=== PATIENT | female | born 1945 | race Caucasian/White ===

== ENCOUNTER 2020-04-29 10:29 | Outpatient (REF) | payer MEDICARE, MEDICAID, OTHER, SELFPAY ==
--- NOTE | ~2020-04-29 | MM_ITS ---
EXAMINATION: MM SCREENING DIGITAL BREAST TOMOSYNTHESIS, BILATERAL CLINICAL INFORMATION: Screening. Asymptomatic. The lifetime risk of breast cancer based on the Tyrer-Cuzick Model is 10.6%. COMPARISON: Mammography: April 05, 2019 and studies dating back to June 07, 2006 TECHNIQUE: Digital breast tomosynthesis is performed in both the craniocaudal and mediolateral oblique views along with computer-aided detection (CAD). Synthesized 2D images are generated from the tomosynthesis. FINDINGS: The breasts are almost entirely fatty (ACR BI-RADS breast composition Category a). There are no significant masses, abnormal calcifications, or other abnormalities. MM/MM tomosynthesis screening BI IMPRESSION: There are no significant changes from prior study. ASSESSMENT: BI-RADS 1: Negative RECOMMENDATION: Routine annual mammography screening. This patient's information was entered into a reminder system with a target due date for their next mammogram.
== END 2020-04-29 10:30 | disposition home or self-care (01) ==
LOC: HO.MAMMO 10:29
PROVIDERS: PCP Nurse Practitioner Family; Visit Provider Nurse Practitioner Family
DX: Z12.31 Encounter for screening mammogram for malignant neoplasm of breast (principal)
CPT/HCPCS: 77063; 77067

== ENCOUNTER 2020-07-14 08:25 | Outpatient (REF) | payer MEDICARE, MEDICAID, SELFPAY ==
[2020-07-14 11:27] LABS: MANUAL DIFF FLAG NO
[2020-07-14 11:34] LABS: Basophils Percent Auto 0.5 % (0-2); Eosinophils Absolute Auto 0.2 X10*3/uL (0.0-0.4); Eosinophils Percent Auto 2.4 % (0-4); Hemoglobin 13.5 g/dl (12.0-16.0); Imm Gran Abs Auto 0.04 X10*3/uL (0.00-0.03); Imm Gran Pct Auto 0.5 % (0.0-0.4); Mean Corpuscular HGB Conc 31.4 g/dl (31.0-35.0); Mean Corpuscular Hemoglobin 29.7 pg (27.0-33.0); Mean Corpuscular Volume 94.5 fL (80-98); Monocytes Absolute Auto 0.6 X10*3/uL (0.1-1.2); Monocytes Percent Auto 7.1 % (2-11); Neutrophils Absolute Auto 6.7 X10*3/uL (2.0-8.3); Neutrophils Percent Auto 77.5 % (45-73); Platelet Count 206 X10*3/uL (160-400); Red Blood Count 4.55 X10*6/uL (4.20-5.50); Red Cell Distribution Width 12.4 % (11.0-16.0); White Blood Count 8.6 X10*3/uL (4.8-10.8)
[2020-07-14 11:45] LABS: Anion Gap 15 (12-20); Blood Urea Nitrogen 17 mg/dL (9-16); Calcium 9.5 mg/dL (8.4-10.2); Carbon Dioxide 26 mmol/L (22-29); Chloride 101 mmol/L (96-108); Estimated Glomerular Filt Rate 41; Iron 57 mcg/dL (30-160); Percent Iron Saturation 17 % (15-50); Phosphorus 3.8 mg/dL (2.7-4.5); Potassium 4.1 mmol/L (3.3-5.1); Sodium 138 mmol/L (135-145); Total Iron Binding Capacity 330 mcg/dL (228-428); Unsaturated Iron Binding 273 ug/dL
[2020-07-14 12:11] LABS: Ferritin 214 ng/mL (10-250)
[2020-07-16 10:07] LABS: Calcium (PTHI) 9.8 mg/dL (8.6-10.4); PTHI 68 pg/mL (14-64)
== END 2020-07-14 08:26 | disposition home or self-care (01) ==
LOC: HO.HMGCLDS 08:25
PROVIDERS: PCP Nurse Practitioner Family; Visit Provider Internal Medicine Nephrology
DX: Q61.8 Other cystic kidney diseases (principal)
CPT/HCPCS: 36415; 80051; 82306; 82310; 82565; 82728; 83540; 83970; 84100; 84520; 85025

== ENCOUNTER 2020-07-17 | Outpatient (REF) | payer MEDICARE, MEDICAID, OTHER, SELFPAY ==
[2020-07-17 11:41] LABS: Glucose Urine UA NEG (NEG); Leukocyte Esterase Urine 1+ (NEG); Nitrite Urine NEG (NEG); PH 5.5 (5.0-8.0); Specific Gravity - Urine <= 1.005 (1.005-1.025); Urine Blood NEG (NEG); Urine Ketones NEG (NEG); Urine Protein NEG (NEG-TRACE)
[2020-07-17 11:46] LABS: Appearance Urine CLEAR; Color Urine STRAW
[2020-07-17 12:15] LABS: RBC Urine 0 /HPF (0); Squamous Epithelial Cell Urine TRACE /LPF
[2020-07-17 12:23] LABS: Creatinine Urine 43.66 mg/dL; Total Protein Urine Random < 7 mg/dL (<12)
== END 2020-07-17 00:01 | disposition home or self-care (01) ==
LOC: HO.HMGCLNP
PROVIDERS: Visit Provider Internal Medicine Nephrology
DX: Q61.8 Other cystic kidney diseases (principal)
CPT/HCPCS: 81001; 84156

== ENCOUNTER 2020-10-01 08:36 | Outpatient (REF) | payer MEDICARE, MEDICAID, SELFPAY ==
[2020-10-01 11:48] LABS: Alanine Aminotransferase 14 U/L (0-31); Albumin Level 4.5 g/dL (3.5-5.0); Alkaline Phosphatase 85 U/L (39-117); Anion Gap 14 (12-20); Aspartate Amino Transferase 14 U/L (5-31); Bilirubin Total 0.7 mg/dL (0.0-1.0); Blood Urea Nitrogen 18 mg/dL (9-16); Calcium 9.7 mg/dL (8.4-10.2); Carbon Dioxide 23 mmol/L (22-29); Chloride 107 mmol/L (96-108); Cholesterol 163 mg/dL; Estimated Glomerular Filt Rate 39; Glucose Fasting 107 mg/dL (60-99); HDL Cholesterol 42 mg/dL; LDL Cholesterol Calculated 97 mg/dl; Potassium 4.3 mmol/L (3.3-5.1); Sodium 140 mmol/L (135-145); Total Protein 6.6 g/dL (6.5-8.0); Triglycerides 121 mg/dL
[2020-10-01 12:12] LABS: TSH reflex Free T4 0.63 uIU/mL (0.32-4.0)
== END 2020-10-01 08:37 | disposition home or self-care (01) ==
LOC: HO.HMGCLDS 08:36
PROVIDERS: PCP Nurse Practitioner Family; Visit Provider Nurse Practitioner Family
DX: I10 Essential (primary) hypertension (principal)
CPT/HCPCS: 36415; 80053; 80061; 84443

== ENCOUNTER 2020-10-04 | Outpatient (REF) | payer MEDICARE, MEDICAID, SELFPAY ==
[2020-10-05 11:45] LABS: Glucose Urine UA NEG (NEG); Leukocyte Esterase Urine 1+ (NEG); Nitrite Urine NEG (NEG); Specific Gravity - Urine <= 1.005 (1.005-1.025); UACC Culture Trigger YES; Urine Blood TRACE (NEG); Urine Ketones NEG (NEG); Urine Protein NEG (NEG-TRACE)
[2020-10-05 11:50] LABS: Appearance Urine CLEAR; Color Urine YELLOW
[2020-10-05 12:07] LABS: Bacteria Urine 1+ /LPF; Squamous Epithelial Cell Urine 1+ /LPF
== END 2020-10-04 00:01 | disposition home or self-care (01) ==
LOC: HO.LNP
PROVIDERS: Visit Provider Nurse Practitioner Family
DX: R31.29 Other microscopic hematuria (principal)
CPT/HCPCS: 81001; 87086

== ENCOUNTER 2020-10-05 | Outpatient (REF) | payer MEDICARE, MEDICAID, SELFPAY | END 2020-10-05 00:01 | disposition home or self-care (01) | LOC: HO.HMGCLNP | PROVIDERS: Visit Provider Nurse Practitioner Family | DX: Z13.89 Encounter for screening for other disorder (principal) ==

== ENCOUNTER 2020-10-22 | Outpatient (REF) | payer MEDICARE, MEDICAID, SELFPAY ==
[2020-10-22 13:44] LABS: Urine Cytology See Pathology rpt
[2020-10-22 14:02] LABS: Glucose Urine UA NEG (NEG); Leukocyte Esterase Urine 1+ (NEG); Nitrite Urine NEG (NEG); Specific Gravity - Urine <= 1.005 (1.005-1.025); Urine Blood NEG (NEG); Urine Ketones NEG (NEG); Urine Protein NEG (NEG-TRACE)
[2020-10-22 14:04] LABS: Appearance Urine CLEAR; Color Urine YELLOW
[2020-10-22 15:15] LABS: RBC Urine 0-2 /HPF (0)
[2020-10-22 15:16] LABS: Squamous Epithelial Cell Urine 1+ /LPF
== END 2020-10-22 00:01 | disposition home or self-care (01) ==
LOC: HO.HMGCLNP
PROVIDERS: Visit Provider Nurse Practitioner Family
DX: R31.29 Other microscopic hematuria (principal)
CPT/HCPCS: 81001; 87086; 88112

== ENCOUNTER 2020-11-05 10:22 | Outpatient (REF) | payer MEDICARE, MEDICAID, SELFPAY ==
--- NOTE | ~2020-11-05 | MM_ITS ---
EXAMINATION: BONE DENSITOMETRY CLINICAL INDICATION: Encounter for screening for osteoporosis. COMPARISON: Baseline BD dated 01/29/2016. TECHNIQUE: Using a [employer] DXA System (software version: 13.1) manufactured by [employer], dual-energy x-ray absorptiometry was performed of the lumbar spine and left hip. The images are of good technical quality. Summary results are attached. FINDINGS: AP SPINE L1-L4: Current: BMD 1.215 g/cm2, Z-score 1.5, T-score 0.3, normal, 4.8% increase from baseline (<5% change is not significant). Baseline: BMD 1.159 g/cm2. LEFT FEMUR, NECK: Current: BMD 0.812 g/cm2, Z-score -0.1, T-score -1.6, osteopenia. Baseline: BMD 0.795 g/cm2. LEFT FEMUR, TOTAL: Current: BMD 0.841 g/cm2, Z-score 0.0, T-score -1.3, osteopenia, 1.6% increase from baseline (<5% change is not significant). Baseline: BMD 0.828 g/cm2. IDENTIFIED RISK FACTORS: Low calcium intake, renal, menopause. HISTORY OF FRACTURE: None listed. MEDICATIONS: Calcium or multivitamin. MM/XR DEXA axial skeleton IMPRESSION: 1. DIAGNOSIS: Osteopenia based on the lowest T-score value of -1.6 in the femoral neck applying World Health Organization criteria. 2. 10-YEAR FRACTURE RISK PREDICTION, FRAX: Major osteoporotic fracture (clinical spine, forearm, hip or shoulder) 10.8%. Hip fracture 2.2%. 3. Treatment Recommendations: NOF guidelines recommend consideration for treatment in postmenopausal women and men age 50 and older presenting with the following: -A hip or vertebral (clinical or morphometric) fracture. -T-score less than or equal to -2.5 at the femoral neck or spine after appropriate evaluation to exclude secondary causes. -Low bone mass at the hip or spine and a 10-year fracture probability by FRAX of greater than or equal to 3% for hip fracture or greater than or equal to 20% for major osteoporotic fracture based on the [place] adapted WHO algorithm. 4. Other Recommendations: All treatment decisions require clinical judgment and consideration of individual patient factors, including patient preferences, comorbidities, previous drug use, risk factors not captured in the FRAX model (e.g. frailty, falls, vitamin D deficiency, increased bone turnover, interval significant decline in bone density) and possible under or overestimation of fracture risk by FRAX. Additional medical evaluation for secondary cause of low bone mineral density may be appropriate. FUTURE SCAN RECOMMENDATION: People with diagnosed cases of osteoporosis or at high risk for fracture should have regular bone mineral density tests. For patients eligible for Medicare, routine testing is allowed once every 2 years. The testing frequency can be increased to one year for patients who have rapidly progressing disease, those who are receiving or discontinuing medical therapy to restore bone mass, or have additional risk factors.
== END 2020-11-05 10:23 | disposition home or self-care (01) ==
LOC: HO.MAMMO 10:22
PROVIDERS: PCP Nurse Practitioner Family; Visit Provider Nurse Practitioner Family
DX: Z13.820 Encounter for screening for osteoporosis (principal); M85.80 Other specified disorders of bone density and structure, unspecified site; Z78.0 Asymptomatic menopausal state; Z79.899 Other long term (current) drug therapy
CPT/HCPCS: 77080

== ENCOUNTER 2021-03-31 09:01 | Inpatient (IN) | payer MEDICARE, MEDICAID, SELFPAY ==
[2021-03-31] VITALS (27 sets, daily range): BP systolic 66–142; BP diastolic 36–89; PULSE 109–171; RESP 19–40; TEMP 37.2–40.1; O2SAT 92–99; BMI 34.0
--- NOTE | 2021-03-31 | ECG_ITS ---
Test Reason : CP Blood Pressure : / mmHG Vent. Rate : 168 BPM Atrial Rate : 000 BPM P-R Int : 000 ms QRS Dur : 076 ms QT Int : 264 ms P-R-T Axes : 000 058 -11 degrees QTc Int : 441 ms Atrial fibrillation with rapid ventricular response Nonspecific ST abnormality Abnormal QRS-T angle, consider primary T wave abnormality Abnormal ECG When compared with ECG of 15-DEC-2018 13:09, Atrial fibrillation has replaced Sinus rhythm Vent. rate has increased BY 94 BPM Nonspecific T wave abnormality now evident in Inferior leads Referred By: Rochelle Kaplan Electronically Signed By:Juan Carlos Hawkins
--- NOTE | ~2021-03-31 | XR_ITS ---
EXAMINATION: XR CHEST CLINICAL INFORMATION: Fever COMPARISON: CT chest 09/30/2019 TECHNIQUE: Frontal view of the chest was obtained. FINDINGS: The lungs are well-expanded and clear of acute process. There are postsurgical changes right midlung from previous intervention. The heart size and pulmonary vascularity is normal. There is mild dextroscoliosis dorsal spine. No lytic process. XR/XR chest 1V IMPRESSION: Mild dextroscoliosis. No acute cardiopulmonary process seen. Postsurgical changes right midlung.
--- NOTE | ~2021-03-31 | CT_ITS ---
EXAMINATION: CT ABDOMEN AND PELVIS WITHOUT CONTRAST CLINICAL INFORMATION: Rule out renal obstruction COMPARISON: None TECHNIQUE: Multidetector volumetric imaging was performed from the superior aspect of the liver through the pubic symphysis. Sagittal and coronal reformatted images were obtained on the technologist's workstation. This CT examination was performed using dose optimization techniques as appropriate, variously including the following: *Automated exposure control *Adjustment of mA and/or kV according to patient size (this includes techniques or standardized protocols for targeted exams where dose is matched to indication/reason for exam; i.e. extremities or head) *Use of iterative reconstruction technique DLP: 645 mGy-cm FINDINGS: Visualized lung bases demonstrate mild dependent pleural thickening and minimal atelectasis. Prominent mitral annulus calcifications are partially visualized. The liver is normal in size but demonstrates diffusely decreased attenuation. The gallbladder is normal in appearance. The pancreas and spleen are unremarkable. A small anterior splenule is suspected. There is mild diffuse hypertrophy of both adrenal glands. The kidneys are normal in size. No renal calculi or hydronephrosis identified within either kidney. There is mild to moderate perinephric stranding bilaterally. There is a 5.7 cm right renal cyst. Normal caliber loops of small and large bowel. There is mild to moderate colonic diverticulosis. There appears to be diffuse fatty mucosal infiltration involving the ascending and transverse colon. Normal appendix. Normal caliber abdominal aorta which demonstrates moderate atherosclerotic disease. No gross retroperitoneal lymphadenopathy. The bladder is relatively decompressed but grossly unremarkable. Unremarkable CT appearance of the uterus. Within the right pelvis there is a heterogeneous, predominantly fatty structure which measures approximately 4.3 cm, nonspecific. There is no gross free pelvic fluid present. A small fat-containing left inguinal hernia is noted. There is no inguinal lymphadenopathy. Mild to moderate diffuse degenerative changes of the spine. CT/CT abdomen pelvis wo con IMPRESSION: 1. No renal calculi or hydronephrosis of either kidney. 2. 5.7 cm right renal cyst. 3. Diffusely decreased liver attenuation suggesting hepatic steatosis. Correlation with liver enzymes recommended. 4. Mild to moderate colonic diverticulosis without CT evidence to suggest active diverticulitis. 5. There appears to be diffuse fatty mucosal infiltration involving the ascending and transverse colon which is nonspecific in nature. Clinical correlation recommended. 6. Within the right pelvis there is a heterogeneous, predominantly fatty structure which measures approximately 4.3 cm. This structure is nonspecific but suspected to be adnexal in origin and therefore likely a dermoid. Further evaluation can be obtained with ultrasound imaging of the pelvis, both transabdominal and transvaginal. Fleischner guidelines were followed.
--- NOTE | 2021-03-31 09:58 | ED_ITS ---
HPI - General Adult General Chief complaint: General Medical Stated complaint: UNABLE TO WALK SHAKING QUEST UTI Time Seen by Provider: 03/31/21 09:33 Source: patient and family Mode of arrival: ambulatory Limitations: no limitations History of Present Illness HPI narrative: Patient is brought to the emergency room by her daughter. Patient has had increased confusion, according to the daughter the patient has been trying to sit were there is no chair, when patient is asked a question she do send labs for no reason. Patient has had multiple urinary tract infections in the past, and this is usually how she reacts. Patient states she has no pain at this time. Patient told her daughter that earlier today she had right-sided flank pain. Patient denies abdominal pain. Patient denies dysuria or hematuria. Denies URI symptoms Related Data Home Medications Medication Instructions Recorded Confirmed albuterol sulfate 90 mcg/actuation 2 puff INHALATION Q6H PRN 09/23/20 03/31/21 aerosol inhaler (Ventolin HFA) cholecalciferol (vitamin D3) 50 50 mcg PO DAILY 09/23/20 03/31/21 mcg (2,000 unit) capsule lamotrigine 25 mg tablet 50 mg PO BEDTIME tab 09/23/20 03/31/21 melatonin 10 mg tablet 10 mg PO BEDTIME 03/31/21 03/31/21 olanzapine 7.5 mg tablet 1 tab PO BEDTIME 03/31/21 03/31/21 tiotropium 2.5 mcg-olodaterol 2.5 2 puff INHALATION DAILY 03/31/21 03/31/21 mcg/actuation mist for inhalation (Stiolto Respimat) Previous Rx's Medication Instructions Recorded simvastatin 20 mg tablet 20 mg PO BEDTIME #90 tab 02/08/21 Allergies Allergy/AdvReac Type Severity Reaction Status Date / Time Sulfa (Sulfonamide Allergy Unknown RASH, Unverified 09/23/20 15:32 Antibiotics) Anaphylaxis [SULFA (SULFONAMIDE ANTIBIOTICS)] Review of Systems Review of Systems: Constitutional : No Weight loss, complaining of fever, states she feels very hot. Having Chills and worsening tremors, No Night Sweats, No Fatigue, No Malaise ENT/Mouth : No Hearing loss, No Ear Pain, No Nasal Congestion, No Sinus Pain, No Hoarseness, No sore throat, No Rhinorrhea, No Swallowing Difficulty Eyes: No Eye Pain, No Swelling, No Redness, No Foreign Body, No Discharge, No Vi tomy Changes Cardiovascular : No Chest Pain, No SOB, No Dyspnea on Exertion, No Orthopnea, No Edema, No Palpitations Respiratory : No Cough, No Sputum, No Wheezing, No Smoke Exposure, No Dyspnea Gastrointestinal : No Nausea, No Vomiting, No Diarrhea, No Constipation, No abdominal Pain, No Hematochezia, No Melena Genitourinary : no irregular bleeding, No Dysuria, No Urinary Frequency, No Hematuria, No Urinary Incontinence, No Urgency, No Flank Pain, No Urinary Flow Changes, No Hesitancy Musculoskeletal : No joint pain, No Myalgias, No Joint Swelling Skin : No Skin Lesions, No rash Neuro : No Weakness, No Numbness, No Paresthesias, No Loss of Consciousness, No Dizziness, No Headache Psych : No Anxiety/Panic, No Depression, No SI/HI/AH/VH, No Social Issues, Heme/Lymph: No Bruising, No Bleeding,No Lymphadenopathy Endocrine : No Polyuria, No Polydipsia, No Temperature Intolerance [facility] Past Medical History Medical History Bipolar 1 disorder COPD (chronic obstructive pulmonary disease) Dyslipidemia HTN (hypertension) Kidney disease Leukocytosis [place] nephropathy Necrotizing granulomatous inflammation of lung Vitamin D deficiency Family History Family History (Updated 09/23/20 @ 15:19 by Jud Mendoza) Child No Financial Resp No problems noted. Family/Other Substance use disorder Social History Social History Housing: House Patient Tobacco Use Status: Former Tobacco user Years Smoked: 4-5 years ago Second Hand Smoke Exposure: No Advance Directives: Yes Advance Directives Information Provided: Yes Advance Directives on File: No Current occupational status: retired Current occupational exposures/hazards: No Physical Exam Vital Signs: Vital Signs: Last Vital Signs Temp 99.0 F 03/31/21 15:42 Pulse 138 H 03/31/21 15:42 Resp 22 H 03/31/21 15:42 BP 104/61 03/31/21 15:42 Pulse Ox 97 03/31/21 15:42 BMI result Body Mass Index 34.0 Const: Other: Appearance: Alert. No acute distress. Alert and oriented x3 Eyes: Pupils equal, round and reactive to light. ENT: Pharynx normal. Neck: Normal inspection. Neck supple. No lymph nodes noted. No crepitus CVS: Normal heart rate and rhythm. Pulses normal. Normal S1 and S2 Respiratory: No respiratory distress. Breath sounds normal. No Wheezing. No rales Abdomen: Soft and nontender. No rigidity. No distention. Skin: Skin warm to touch Extremities: No lower extremity edema. Neuro: Cranial nerves 2-12 was grossly intact, No motor deficit. No sensory deficit. Moving all extermities. No slurred speech. Course Course Course Narrative: 10:00 Patient has history of UTIs. At this time, all of the labs are pending. Patient will be empirically treated with ceftriaxone. Fluids will be given on ideal body weight of 46 kg 10:35 patient remains asymptomatic, however patient's heart rate went up to 180 to 190. Adenosine 6 mg and 12 mg were given. However, the patient's heart rate went up to 160mg. As the heart rate decreased, it was determined that the rhythm is atrial fibrillation. After 2 doses adenosine. Patient's blood pressure dropped to 80 systolic. Initially, Cardizem was ordered but it was not given. Medication was switched to IV digoxin 250 mcg I discussed the patient with a chromic suture. At this time, the arrhythmia is likely secondary to sepsis. Recommendations are to treat the infection. If blood pressure continues to be low, patient will need phenylephrine,. At this time, patient would not tolerate beta blockers or calcium channel blockers. If needed we can do amiodarone. 12:50 the urinalysis is back, it is not impressive, unlikely to be causing a fever of 103. Chest x-ray within normal limits. COVID test is negative. I discussed with the daughter that we will go ahead and scan the chest and the abdomen looking for a source of infection. Patient will receive a 0.5 mg IV push of phenylephrine, dose confirmed with pharmacy. If needed, patient may need a central line with phenylephrine. 13:00 patient received 1 push of phenylephrine 0.5, patient's blood pressure improved, discussed the blood pressure improvement with Dr. Hawkins, patient will be started on an amiodarone drip 16:22 patient remains stable, heart rate 120-130, blood pressure 118/59 I discussed the patient with Dr. Latham, patient being admitted [place] [facility] [place] Medical Decision Making Lab Data Result diagrams: 03/31/21 10:07 03/31/21 10:07 Labs: Lab Results 03/31/21 03/31/21 03/31/21 Range/Units 10:07 10:07 10:07 WBC 15.4 H (4.8-10.8) X10*3/uL RBC 4.29 (4.20-5.50) X10*6/uL Hgb 12.6 (12.0-16.0) g/dl Hct 39.1 (37.0-47.0) % MCV 91.1 (80.0-98.0) fL MCH 29.4 (27.0-33.0) pg MCHC 32.2 (31.0-35.0) g/dl RDW 12.3 (11.0-16.0) % Plt Count 109 L (160-400) X10*3/uL MPV 11.4 (9.4-12.3) fL Immature Gran % (Auto) 1.1 H (0.0-0.4) % Neut % (Auto) 90.2 H (45-73) % Lymph % (Auto) 1.6 L (20-40) % [place] % (Auto) 7.0 (2-11) % Eos % (Auto) 0.0 (0-4) % Baso % (Auto) 0.1 (0-2) % Lymph # (Auto) 0.2 L (1.2-4.9) X10*3/uL [place] # (Auto) 1.1 (0.1-1.2) X10*3/uL Eos # (Auto) 0.0 (0.0-0.4) X10*3/uL Baso # (Auto) 0.0 (0.0-0.2) X10*3/uL Abs Immat Gran (auto) 0.17 H (0.00-0.03) X10*3/uL Absolute Neuts (auto) 13.9 H (2.0-8.3) x10*3/uL Absolute Nucleated RBC 0.000 (0.0-0.012) X10*3/uL Nucleated RBC % (auto) 0.0 (0.0-0.2) /100WBC Smear Tech's Comments VERIFIED PT (9.9-13.0) SEC INR (0.9-1.1) Sodium 140 (135-145) mmol/L Potassium 4.5 (3.3-5.1) mmol/L Chloride 105 (96-108) mmol/L Carbon Dioxide 24 (22-29) mmol/L Anion Gap 16 (12-20) BUN 37 H (9-16) mg/dL Creatinine 2.89 H (0.5-1.4) mg/dL Estim Creat Clear Calc 16.2 Estimated GFR 16 Random Glucose 172 H (60-115) mg/dL Lactic Acid (0.5-2.0) mmol/L Calcium 9.1 D (8.4-10.2) mg/dL Total Bilirubin 1.1 H (0.0-1.0) mg/dL Direct Bilirubin 0.5 (0.0-0.5) mg/dL AST 17 (5-31) U/L ALT 12 (0-31) U/L Alkaline Phosphatase 65 D (39-117) U/L Total Protein 6.0 L (6.5-8.0) g/dL Albumin 3.9 (3.5-5.0) g/dL Urine Color Urine Appearance Urine pH (5.0-8.0) Ur Specific [place] (1.005-1.025) Urine Protein (NEG-TRACE) MG/DL Urine Glucose (UA) (NEG) MG/DL Urine Ketones (NEG) MG/DL Urine Blood (NEG) Urine Nitrite (NEG) Ur Leukocyte Esterase (NEG) Urine RBC (0) /HPF Urine WBC (0-4) /HPF Ur Squamous Epith Cells /LPF Ur Renal Epithelial Cell /LPF Urine Bacteria /LPF Urine Mucus /LPF COVID-19 (KARTHIK) Negative (Negative) COVID-19 Clin Com See Note 03/31/21 03/31/21 03/31/21 Range/Units 10:07 10:07 12:14 WBC (4.8-10.8) X10*3/uL RBC (4.20-5.50) X10*6/uL Hgb (12.0-16.0) g/dl Hct (37.0-47.0) % MCV (80.0-98.0) fL MCH (27.0-33.0) pg MCHC (31.0-35.0) g/dl RDW (11.0-16.0) % Plt Count (160-400) X10*3/uL MPV (9.4-12.3) fL Immature Gran % (Auto) (0.0-0.4) % Neut % (Auto) (45-73) % Lymph % (Auto) (20-40) % [place] % (Auto) (2-11) % Eos % (Auto) (0-4) % Baso % (Auto) (0-2) % Lymph # (Auto) (1.2-4.9) X10*3/uL [place] # (Auto) (0.1-1.2) X10*3/uL Eos # (Auto) (0.0-0.4) X10*3/uL Baso # (Auto) (0.0-0.2) X10*3/uL Abs Immat Gran (auto) (0.00-0.03) X10*3/uL Absolute Neuts (auto) (2.0-8.3) x10*3/uL Absolute Nucleated RBC (0.0-0.012) X10*3/uL Nucleated RBC % (auto) (0.0-0.2) /100WBC Smear Tech's Comments PT 15.8 H (9.9-13.0) SEC INR 1.4 H (0.9-1.1) Sodium (135-145) mmol/L Potassium (3.3-5.1) mmol/L Chloride (96-108) mmol/L Carbon Dioxide (22-29) mmol/L Anion Gap (12-20) BUN (9-16) mg/dL Creatinine (0.5-1.4) mg/dL Estim Creat Clear Calc Estimated GFR Random Glucose (60-115) mg/dL Lactic Acid 1.4 (0.5-2.0) mmol/L Calcium (8.4-10.2) mg/dL Total Bilirubin (0.0-1.0) mg/dL Direct Bilirubin (0.0-0.5) mg/dL AST (5-31) U/L ALT (0-31) U/L Alkaline Phosphatase (39-117) U/L Total Protein (6.5-8.0) g/dL Albumin (3.5-5.0) g/dL Urine Color YELLOW Urine Appearance CLOUDY Urine pH 6.5 (5.0-8.0) Ur Specific [place] 1.020 (1.005-1.025) Urine Protein 3+ H (NEG-TRACE) MG/DL Urine Glucose (UA) NEG (NEG) MG/DL Urine Ketones NEG (NEG) MG/DL Urine Blood 3+ H (NEG) Urine Nitrite POS H (NEG) Ur Leukocyte Esterase 2+ H (NEG) Urine RBC 76-150 H (0) /HPF Urine WBC 76-150 H (0-4) /HPF Ur Squamous Epith Cells TRACE /LPF Ur Renal Epithelial Cell TRACE /LPF Urine Bacteria TRACE /LPF Urine Mucus 1+ /LPF COVID-19 (KARTHIK) (Negative) COVID-19 Clin Com Critical Care Time Critical Care Time Critical Care Time: Yes Total Critical Care Time: 90 Attestation: 90 minutes were spent with the patient care, consultations and stabilization Discharge Plan Discharge Clinical Impression: Acute UTI, Atrial fibrillation with RVR, [id number] kidney injury, Acute hypotension Patient Disposition: Admitted As Inpatient
[2021-03-31] MEDS: 0.9 % Sodium Chloride 1,000 ML 999 ML IVCONT (10:08)
[2021-03-31] MEDS: Acetaminophen 325 MG TABLET 650 MG PO ×3 (10:15→18:13)
[2021-03-31 10:24] LABS: INTERNATIONAL NORM RATIO 1.4 (0.9-1.1); Prothrombin Time 15.8 SEC (9.9-13.0)
[2021-03-31] MEDS: cefTRIAXone sodium 1 GM in 0.9 % Sodium Chloride 50 ML IV (10:26)
[2021-03-31 10:28] LABS: Basophils Percent Auto 0.1 % (0-2); Hematocrit 39.1 % (37.0-47.0); Hemoglobin 12.6 g/dl (12.0-16.0); Imm Gran Abs Auto 0.17 X10*3/uL (0.00-0.03); Imm Gran Pct Auto 1.1 % (0.0-0.4); Lymphocytes Absolute Auto 0.2 X10*3/uL (1.2-4.9); Lymphocytes Percent Auto 1.6 % (20-40); MANUAL DIFF FLAG SCAN; Mean Corpuscular HGB Conc 32.2 g/dl (31.0-35.0); Mean Corpuscular Hemoglobin 29.4 pg (27.0-33.0); Mean Corpuscular Volume 91.1 fL (80.0-98.0); Mean Platelet Volume 11.4 fL (9.4-12.3); Monocytes Absolute Auto 1.1 X10*3/uL (0.1-1.2); Neutrophils Absolute Auto 13.9 x10*3/uL (2.0-8.3); Neutrophils Percent Auto 90.2 % (45-73); Platelet Count 109 X10*3/uL (160-400); Red Blood Count 4.29 X10*6/uL (4.20-5.50); Red Cell Distribution Width 12.3 % (11.0-16.0); SCAN SMEAR FLAG 1; White Blood Count 15.4 X10*3/uL (4.8-10.8)
[2021-03-31 10:35] LABS: Alanine Aminotransferase 12 U/L (0-31); Albumin Level 3.9 g/dL (3.5-5.0); Alkaline Phosphatase 65 U/L (39-117); Anion Gap 16 (12-20); Aspartate Amino Transferase 17 U/L (5-31); Bilirubin Direct 0.5 mg/dL (0.0-0.5); Bilirubin Total 1.1 mg/dL (0.0-1.0); Blood Urea Nitrogen 37 mg/dL (9-16); Calcium 9.1 mg/dL (8.4-10.2); Carbon Dioxide 24 mmol/L (22-29); Chloride 105 mmol/L (96-108); Creatinine Clr Calc Pharmacy 16.2; Estimated Glomerular Filt Rate 16; Glucose Random 172 mg/dL (60-115); Potassium 4.5 mmol/L (3.3-5.1); Sodium 140 mmol/L (135-145)
[2021-03-31 10:37] LABS: COVID-19 Test Negative (Negative); IDNOW Serial# 9DD0AD1C
[2021-03-31 10:45] LABS: SLIDE REVIEW VERIFIED
--- NOTE | 2021-03-31 10:45 | ECG_ITS ---
Test Reason : CP Blood Pressure : / mmHG Vent. Rate : 154 BPM Atrial Rate : 174 BPM P-R Int : 000 ms QRS Dur : 080 ms QT Int : 282 ms P-R-T Axes : 000 066 -17 degrees QTc Int : 451 ms Atrial fibrillation followed by asystole. Abnormal QRS-T angle, consider primary T wave abnormality Abnormal ECG When compared with ECG of 15-DEC-2018 13:09, Afib followed by long pause. Referred By: Rochelle Kaplan Electronically Signed By:Juan Carlos Hawkins
[2021-03-31] MEDS: Adenosine 6 MG/2 ML VIAL IVPUSH (10:46)
--- NOTE | 2021-03-31 10:46 | ECG_ITS ---
Test Reason : CP Blood Pressure : / mmHG Vent. Rate : 181 BPM Atrial Rate : 000 BPM P-R Int : 000 ms QRS Dur : 080 ms QT Int : 246 ms P-R-T Axes : 000 063 -89 degrees QTc Int : 427 ms Atrial fibrillation with rapid ventricular response Marked ST abnormality, possible inferolateral subendocardial injury Abnormal ECG When compared with ECG of 15-DEC-2018 13:09, Atrial fibrillation has replaced Sinus rhythm Vent. rate has increased BY [address] now depressed in Inferior leads ST now depressed in Anterolateral leads Nonspecific T wave abnormality now evident in Inferior leads T wave amplitude has decreased in Anterior leads Referred By: Jabari Vergara Electronically Signed By:Juan Carlos Hawkins
[2021-03-31] MEDS: Adenosine 6 MG/2 ML VIAL 12 MG IVPUSH (10:50)
[2021-03-31] MEDS: 0.9 % Sodium Chloride 2,000 ML 999 ML IVCONT (11:07)
--- NOTE | 2021-03-31 11:09 | PC.NURSE ---
At approximately 1045 this RN was made aware that the physician needed assistance in patients room. Patient with a heart rate of 170-190 via tele, appears to be SVT, EKG completed at bedside. Patient awake and alert. skin pwd, resp even and labored, speaking in full, clear sentences. daughter at bedside.
--- NOTE | 2021-03-31 11:20 | PC.NURSE ---
patient c/o chest pressure. patient remains in a tachy arrythmia via afiv, HR 150's-160's. hypotensive. Patient remains awake and alert. skin pwd, resp even and labored. Dr. Kaplan to bedside and new meds ordered
[2021-03-31 11:24] LABS: Lactic Acid 1.4 mmol/L (0.5-2.0)
[2021-03-31] MEDS: Digoxin 0.5 MG/2 ML AMPUL 0.25 MG IVPUSH (11:27)
--- NOTE | 2021-03-31 12:18 | PC.NURSE ---
Patient states she no longer feels pressure in chest. HR remains 140's-160's and hypotensive. Dr. Kaplan aware
--- NOTE | 2021-03-31 12:20 | PC.NURSE ---
straight cath completed to obtain urine sample ordered by Dr. Kaplan. Urine dark nga w/ sediment, 30cc of urine output. Dr Kaplan aware.
[2021-03-31 13:02] LABS: Appearance Urine CLOUDY; Color Urine YELLOW; Glucose Urine UA NEG (NEG); Leukocyte Esterase Urine 2+ (NEG); Nitrite Urine POS (NEG); PH 6.5 (5.0-8.0); UACC Culture Trigger YES; Urine Blood 3+ (NEG); Urine Ketones NEG (NEG); Urine Protein 3+ MG/DL (NEG-TRACE)
[2021-03-31] MEDS: Phenylephrine HCL 10 MG/ML VIAL IVPUSH (13:02)
--- NOTE | 2021-03-31 13:05 | PHA.MEDREC ---
Pharmacy Consult ? Medication Reconciliation Pharmacy has completed the medication reconciliation. Patient and daughter unsure of which inhaler patient has at home. It is filled by [facility]. Stiolto was filled in april 2020, and daughter believes that is the correct inhaler when picture was shown. Josette Carolina, PharmD
[2021-03-31 13:07] LABS: Mucus Urine 1+ /LPF; Renal Epithelial Cells Urine TRACE /LPF; Squamous Epithelial Cell Urine TRACE /LPF
[2021-03-31 13:10] LABS: Bacteria Urine TRACE /LPF
[2021-03-31] MEDS: Amiodarone HCL 900 MG in 0.9 % Sodium Chloride 500 ML 34.53 MG IVCONT (13:56)
--- NOTE | 2021-03-31 16:52 | PM.IMHP ---
History of Present Illness Date of Service: 03/31/21 Chief Complaint: Weakness, chills A 75 years old lady with PMH of COPD, osteopenia among others who presented to the hospital with increased weakness, chills and confusion. The patient reports that she has been feeling weaker for the last day but things worsened this morning as she felt unable to stand up and almost falling associated with tremors and becoming more confused. She could not tell if she had a fever or no. Her daughter reported that she had some right flank up pain but no associated abdominal pain, nausea, vomiting, dysuria or other urinary symptoms. In the emergency she was found febrile, tachycardic with new onset atrial fibrillation with RVR controlled with amiodarone after consulting Cardiology. Admitted to the hospital for treatment of sepsis and AFib with RVR. Review of Systems Review of Systems: Reporting chills and increased generalized weakness No chest pain, palpitation No shortness of breath or coughing No abdominal pain, nausea or vomiting Right-sided flank pain No urinary symptoms No any rash or wounds PMFSH Medical History Bipolar 1 disorder COPD (chronic obstructive pulmonary disease) Dyslipidemia HTN (hypertension) Kidney disease Leukocytosis [place] nephropathy Necrotizing granulomatous inflammation of lung Vitamin D deficiency Family History Child No Financial Resp No problems noted. Family/Other Substance use disorder Social History Housing: House Patient Tobacco Use Status: Former Tobacco user Years Smoked: 4-5 years ago Second Hand Smoke Exposure: No Advance Directives: Yes Advance Directives Information Provided: Yes Advance Directives on File: No Current occupational status: retired Current occupational exposures/hazards: No Meds Allergies Allergy/AdvReac Type Severity Reaction Status Date / Time Sulfa (Sulfonamide Allergy Unknown RASH, Unverified 09/23/20 15:32 Antibiotics) Anaphylaxis [SULFA (SULFONAMIDE ANTIBIOTICS)] Active Medications: Current Medications Amiodarone HCl 900 mg/ Sodium (Chloride) 518 mls @ 34.533 mls/hr IVCONT .Q15H1M [facility]; Protocol Last Admin: 03/31/21 13:56 Dose: 1 mg/min, 34.53 mls/hr Documented by: Home Medications Medication Instructions Recorded Confirmed Last Taken Type albuterol sulfate 90 mcg/actuation 2 puff INHALATION Q6H PRN 09/23/20 03/31/21 03/30/21 History aerosol inhaler (Ventolin HFA) cholecalciferol (vitamin D3) 50 50 mcg PO DAILY 09/23/20 03/31/21 03/30/21 History mcg (2,000 unit) capsule lamotrigine 25 mg tablet 50 mg PO BEDTIME tab 09/23/20 03/31/21 03/30/21 History melatonin 10 mg tablet 10 mg PO BEDTIME 03/31/21 03/31/21 03/30/21 History olanzapine 7.5 mg tablet 1 tab PO BEDTIME 03/31/21 03/31/21 03/30/21 History tiotropium 2.5 mcg-olodaterol 2.5 2 puff INHALATION DAILY 03/31/21 03/31/21 03/30/21 History mcg/actuation mist for inhalation (Stiolto Respimat) Physical Exam Vital Signs and Narrative: Vital Signs: Last Vital Signs Temp 99.0 F 03/31/21 15:42 Pulse 138 H 03/31/21 15:42 Resp 22 H 03/31/21 15:42 BP 104/61 03/31/21 15:42 Pulse Ox 97 03/31/21 15:42 BMI result Body Mass Index 34.0 Const: Other: Constitutional : Alert, oriented, In mild distress, still having chills Neck : Normal inspection, Supple Cardiovascular : Irregular irregular, S1 S2, no lower extremity edema, tachycardia Respiratory : Good bilateral air entry, no crackles, wheezes or rhonchi Gastrointestinal: soft, lax, Normal bowel sounds, Non tender Skin : Warm, Dry Neurological : Alert & oriented x3, No focal deficit Results Labs CBC and Chem 7: 03/31/21 10:07 03/31/21 10:07 Labs: Laboratory Results - last 24 hr 03/31/21 03/31/21 03/31/21 10:07 10:07 10:07 MCV 91.1 MCH 29.4 MCHC 32.2 RDW 12.3 Plt Count 109 L MPV 11.4 Immature Gran % (Auto) 1.1 H Neut % (Auto) 90.2 H Lymph % (Auto) 1.6 L [place] % (Auto) 7.0 Eos % (Auto) 0.0 Baso % (Auto) 0.1 Lymph # (Auto) 0.2 L [place] # (Auto) 1.1 Eos # (Auto) 0.0 Baso # (Auto) 0.0 Abs Immat Gran (auto) 0.17 H Absolute Neuts (auto) 13.9 H Absolute Nucleated RBC 0.000 Nucleated RBC % (auto) 0.0 Smear Tech's Comments VERIFIED PT INR Anion Gap 16 Estim Creat Clear Calc 16.2 Estimated GFR 16 Random Glucose 172 H Lactic Acid Calcium 9.1 D Total Bilirubin 1.1 H Direct Bilirubin 0.5 AST 17 ALT 12 Alkaline Phosphatase 65 D Total Protein 6.0 L Albumin 3.9 Urine Color Urine Appearance Urine pH Ur Specific Finger Urine Protein Urine Glucose (UA) Urine Ketones Urine Blood Urine Nitrite Ur Leukocyte Esterase Urine RBC Urine WBC Ur Squamous Epith Cells Ur Renal Epithelial Cell Urine Bacteria Urine Mucus COVID-19 (KARTHIK) Negative COVID-19 Clin Com See Note 03/31/21 03/31/21 03/31/21 10:07 10:07 12:14 MCV MCH MCHC RDW Plt Count MPV Immature Gran % (Auto) Neut % (Auto) Lymph % (Auto) [place] % (Auto) Eos % (Auto) Baso % (Auto) Lymph # (Auto) [place] # (Auto) Eos # (Auto) Baso # (Auto) Abs Immat Gran (auto) Absolute Neuts (auto) Absolute Nucleated RBC Nucleated RBC % (auto) Smear Tech's Comments PT 15.8 H INR 1.4 H Anion Gap Estim Creat Clear Calc Estimated GFR Random Glucose Lactic Acid 1.4 Calcium Total Bilirubin Direct Bilirubin AST ALT Alkaline Phosphatase Total Protein Albumin Urine Color YELLOW Urine Appearance CLOUDY Urine pH 6.5 Ur Specific Finger 1.020 Urine Protein 3+ H Urine Glucose (UA) NEG Urine Ketones NEG Urine Blood 3+ H Urine Nitrite POS H Ur Leukocyte Esterase 2+ H Urine RBC 76-150 H Urine WBC 76-150 H Ur Squamous Epith Cells TRACE Ur Renal Epithelial Cell TRACE Urine Bacteria TRACE Urine Mucus 1+ COVID-19 (KARTHIK) COVID-19 Clin Com Imaging Radiologist's Impressions: Impressions Chest X-Ray 03/31/21 10:13 IMPRESSION: Mild dextroscoliosis. No acute cardiopulmonary process seen. Postsurgical changes right midlung. Assessment and Plan (1) Acute UTI: Status: Acute (2) Atrial fibrillation with RVR: Status: Acute (3) [id number]-lb-[id number] kidney injury: Status: Acute (4) Sepsis: Status: Acute Plan A 75 years old lady with PMH of COPD, osteopenia among others who presented to the hospital with increased weakness, chills and confusion. Sepsis Secondary to UTI Hypotension from medications not from severe sepsis Urine and blood culture pending Continue IV antibiotic of ceftriaxone New onset atrial fibrillation with RVR Secondary to sepsis To check an echo Continue amiodarone drip for now, follow protocol Given telemetry, check magnesium level To get cardiology evaluation Discussed the need of anticoagulation, patient understand the risk and benefit and agrees. To start Lovenox for now Dmitry I on CKD stage 3 Secondary to sepsis Check CT scan to rule out any obstruction To check urine electrolytes Gentle hydration Follow urine output Follow BMP Continue rest of her home medications DVT PPX Lovenox Quality Stroke Does the patient have a stroke diagnosis?: No VTE Prior VTE?: No VTE Risk Level:: Medical - moderate - high VTE Device Contraindication: Treatment Not Indicated VTE Drug Contraindication: N/A - Med Ordered
--- NOTE | 2021-03-31 17:10 | PC.NURSE ---
1710 pt became tremulous, pale, sob, tachy up to 200- unsure if this is true d/t excessive tremors. hospitalist called, 650 tylenol given, prn inhaler given, hospitlist at bedside, will pack w/ice,give ivf and recheck
[2021-03-31 17:21] LABS: Glucose, Whole Blood 100 mg/dL (60-115)
[2021-03-31 17:21] LABS: Magnesium 1.9 mg/dL (1.6-2.6)
[2021-03-31] MEDS: Albuterol Sulfate 90 MCG 8 GM INHALER 2 PUFF INHALE (17:53)
[2021-03-31] MEDS: 0.9 % Sodium Chloride 1,000 ML 80 ML IVCONT (17:54)
[2021-03-31] MEDS: 0.9 % Sodium Chloride 1,000 ML 999 ML IV (17:55)
[2021-03-31 18:08] LABS: Creatinine Urine 153.27 mg/dL
[2021-03-31] MEDS: Piperacillin Sodium/Tazobactam 2.25 GM in 0.9 % Sodium Chloride 50 ML IV (18:14)
--- NOTE | 2021-03-31 18:15 | PHA.PROG ---
Admission Date/Time: March 31, 2021 16:47 Indication: Weight in k.647 kg Adjusted body weight in Kg: [place] body weight in Kg: Obesity Dosing Indication % IBW: Serum Creatinine - Last 168 Hours 03/31/21 10:07 Creatinine 2.89 H Estimated CrCl and GFR - Last 168 Hours 03/31/21 10:07 Estim Creat Clear Calc 16.2 Estimated GFR 16 Vancomycin Loading Dose: Current Vancomycin Dosing Regimen: Vancomycin Monitoring using AUC goal of 400 - 600 range with trough as surrogate marker: Date and Time for next Vancomycin Level to be drawn: Pharmacist Comments on Vancomycin Plan: 1500 mg load followed by 750 mg q24h to help increase AUC faster, dose will need to be decreased to 500 mg after first trough if current scr remains the same Vancomycin dosing will take advantage of Smish as a clinical decision support tool that uses Bayesian modeling to calculate individual patient's pharmacokinetic parameters and forecast the patient's drug concentration time course with the target goal AUC 24 range of 400 - 600 mg/L/hr.
--- NOTE | 2021-03-31 18:22 | PC.NURSE ---
pts recheck temp was 104.1, spoke to hospitalist plan for additional tylenol, more fluids, starting zosyn then vanco, pt appears less pale, color r/t face, resp down from mid 40s to 30-35. pt remains in afib 140-170. o2 sat 96 on 2l pt does have copd but does not wear o2 at baseline. will recheck in w/hospitalist in 1 hour to update on pt progress
[2021-03-31] MEDS: vancomycin HCL 1,500 MG in 0.9 % Sodium Chloride 500 ML 333.33 MG IV (19:33)
--- NOTE | 2021-03-31 20:04 | PC.NURSE ---
PATIENT WAS INC OF LOOSE STOOL ,PATIENT WAS CLEAN UP AND BEDDING WAS CHANGE .
--- NOTE | 2021-03-31 20:26 | PC.NURSE ---
Amiodarone drip titrated down to 0.5 mg/min after 6 hours.
--- NOTE | 2021-03-31 20:29 | PM.EVENT ---
Event Note Date of Service: 03/31/21 Event Note: ?75-year-old female with a past medical history of COPD, hypertension, bipolar disorder,? dyslipidemia who presented to the hospital for weakness, chills and confusion.? In the emergency room she was found to be afebrile tachycardic with new onset of atrial fibrillation with RVR.? she received beta-juana? and Cardizem without any effect.? Cardiology was consulted and advised for amiodarone drip to be started.? Patient was admitted to hospital medicine initially,? but due to requirement of amiodarone drip transferred to the ICU for management of AFib RVR
--- NOTE | 2021-03-31 21:29 | PC.NURSE ---
patient had a sandwich and gingerale
[2021-03-31] MEDS: lamoTRIgine 25 MG TABLET 50 MG PO (21:35)
[2021-03-31] MEDS: OLANZapine 7.5 MG TABLET PO (21:36)
[2021-03-31] MEDS: Enoxaparin Sodium 80 MG/0.8 ML SYRINGE SUBCUT (21:36)
--- NOTE | 2021-03-31 22:01 | PC.NURSE ---
REPORTED CRITICAL TO MADELYN LEGER IN ICU. PROVIDER AWARE
[2021-04-01] VITALS (21 sets, daily range): BP systolic 102–140; BP diastolic 47–74; PULSE 94–140; RESP 16–100; TEMP 36.2–38.3; O2SAT 93–100; BMI 37.3
[2021-04-01] MEDS: Albuterol/Iprat 2.5/0.5MG 3 ML AMPUL.NEB INHALE (00:11)
[2021-04-01] MEDS: 0.9 % Sodium Chloride Flush 3 ML SYRINGE IVFLUSH ×4 (01:22→20:17)
[2021-04-01] MEDS: Albumin Human 25 % 100 ML IV (01:22)
[2021-04-01] MEDS: Piperacillin Sodium/Tazobactam 2.25 GM in 0.9 % Sodium Chloride 50 ML IV ×3 (01:27→18:15)
--- NOTE | 2021-04-01 03:35 | PC.NURSE ---
Admitted from ED about 22:50, care assumed from SLY Nielsen. Patient alert and oriented, follows commands, responds appropriately. Patient has an intentional tremor, where it worsens when she reaches for things. Patient with no other neurological abnormalities. Patient with tachypneia, RR 32-40, LAND TITLE EXAMINER aware. Patient was originally on 1.5 LPM, no home oxygen, SpO2 was 97-98%. Was titrated to room air with SpO2 95-6%. Patient with occasional dry cough. Expiratory wheezes to bilateral upper lobes and markedly diminished at bilateral bases. Patient uses inhaler at home and asked for this, [employer]AND T[employer] EXAMINER notified, and new order for duoneb, was administered with good effect. Distant irregular heart sounds. BP soft, MAP 60, [employer]AND TITLE EXAMINER notified, one time albumin 100 ccs 25 Gm administered IV. Patient endorses being incontinent of urine at baseline. Purewick was placed, and outputs seem low, but adequate. No abdominal discomfort at this time. No complaints at this time. Oral temp 98.3. Small streak of BM. Last BM 03/31, diarrhea per patient report.
[2021-04-01] MEDS: Amiodarone HCL 200 MG TABLET 400 MG PO (05:54)
[2021-04-01 06:11] LABS: Hematocrit 39.1 % (37.0-47.0); Mean Corpuscular HGB Conc 30.7 g/dl (31.0-35.0); Mean Corpuscular Hemoglobin 29.6 pg (27.0-33.0); Mean Corpuscular Volume 96.3 fL (80.0-98.0); Mean Platelet Volume 12.1 fL (9.4-12.3); Red Blood Count 4.06 X10*6/uL (4.20-5.50); Red Cell Distribution Width 12.9 % (11.0-16.0); White Blood Count 18.8 X10*3/uL (4.8-10.8)
[2021-04-01 06:42] LABS: Platelet Count 97 X10*3/uL (160-400)
[2021-04-01 07:00] LABS: Albumin Level 3.3 g/dL (3.5-5.0); Anion Gap 16 (12-20); Blood Urea Nitrogen 42 mg/dL (9-16); Carbon Dioxide 16 mmol/L (22-29); Chloride 112 mmol/L (96-108); Creatinine Clr Calc Pharmacy 14.3; Estimated Glomerular Filt Rate 13; Glucose Random 169 mg/dL (60-115); Magnesium 2.1 mg/dL (1.6-2.6); Phosphorus 3.8 mg/dL (2.7-4.5); Potassium 4.1 mmol/L (3.3-5.1); Sodium 140 mmol/L (135-145)
--- NOTE | 2021-04-01 07:45 | CA_ITS ---
Transthoracic Echocardiogram Patient (Last, First, Middle): Nikki Borjas J Gender: Female Date of : 1945 Age: 75 Procedure Date: 04/01/2021 Procedure Type: Transthoracic Echocardiogram Location: ICU Height: 154.94 cm Weight: 86.01 kg BSA: 1.85 m2 Heart Rate: bpm BP: 125 / 62 mmHg Mmi Teacher: CASE Mejias MD: Jabari Vergara MD Symptoms: New onset atrial fibrillation Study Quality: Fair Conclusions: - Normal left ventricular size and systolic function. There is mildly increased left ventricular wall thickness. The visually estimated ejection fraction is between 65-70%. - Normal right ventricular cavity size and systolic function. - The left atrium is moderately dilated - There is severe mitral annular calcification. There is mild mitral valve regurgitation. Patient has severe annular calcification and flow acceleration through the mitral valve with a mean gradient of 20 mm Hg at a heart rate of 113 beats per minute in atrial fibrillation. At least moderate mitral stenosis present. Would slow the heart rate and recheck the gradient. Findings Left Ventricle Normal left ventricular size and systolic function. There is mildly increased left ventricular wall thickness. The visually estimated ejection fraction is between 65-70%. There is no evidence of regional wall motion abnormalities. Diastolic function is indeterminate on the basis of available data. Right Ventricle Normal right ventricular cavity size and systolic function. Atria The left atrium is moderately dilated. The right atrium is normal in size. Aortic Valve There is a normal trileaflet aortic valve. There is mild calcification of the aortic valve. There is no aortic valve stenosis. There is no aortic valve regurgitation. Mitral Valve There is severe mitral annular calcification. There is mild mitral valve regurgitation. Patient has severe annular calcification and flow acceleration through the mitral valve with a mean gradient of 20 mm Hg at a heart rate of 113 beats per minute in atrial fibrillation. Pulmonic Valve The pulmonic valve is likely normal. Tricuspid Valve Significantly elevated right atrial pressure. Severe pulmonary hypertension is present. Great Vessels All visible segments of the aorta are normal in size. The visualized portions of the pulmonary artery and branches are normal. Venous The inferior vena cava is dilated and does not collapse with inspiration. Pericardium/Pleural There is no evidence of pericardial effusion. Measurements 2D Linear Measurements IVSd: 1.13 0.6-0.9/0.6-1.0 cm LVIDd: 4.25 3.9-5.3/4.2-5.9 cm LVIDd Index: 2.30 2.4-3.2/2.2-3.1 cm/m2 LVIDs: 3.03 2.0-3.6 cm LVPWd: 1.07 0.7-1.1 cm Ao Root: 2.90 2.1-3.5 cm LA Diam: 4.10 2.7-3.8/3.0-4.0 cm LAIDs Index: 2.22 1.5-2.3 cm/m2 LV Mass: 199.23 67-162/88-224 g LV Mass Index: 107.69 43-95/49-115 g/m2 LVOT Diam: 2.00 3.0+(-)1.3 cm Mitral Valve MV VTI: 0.55 MV Pk Abel: 3.00 MV Mn Abel: 2.13 MV Pk Grad: 36.00 MV Mn Grad: 20.00 PHT: 146.00 MVA PHT: 1.51 MVA Continuity: 1.02 Decel [place]: 6.04 Aortic Valve AoV Pk Abel: 1.55 AoV Mn Abel: 1.08 AoV VTI: 0.25 AoV Pk Grad: 10.00 Aov Mn Grad: 5.00 KRISTOFER Cont.VTI: 2.21 LVOT LVOT Pk Abel: 0.98 LVOT Mn Abel: 0.67 LVOT VTI: 0.18 LVOT Pk Grad: 4.00 LVOT Mn Grad: 2.00 LVOT Diam: 2.00 LVOT Area: 3.14 Right Ventricle TAPSE (mm): 26.00 TVS' Abel: 10.10 Tricuspid Valve TR Pk Abel: 3.32 TR Pk Grad: 44.00 RA Press: 15.00 RVSP: 60.00 Great Vessels Aorta Ao Root-2D: 2.90 2.0-3.7 cm Ao Asc: 2.80 2.1-3.4 cm Ao Arch: 2.70 Updated in Other Vendor System with Status of Final Juan Carlos Hawkins MD electronically signed on 04/01/2021 1:38:38 PM with status of Final
--- NOTE | 2021-04-01 08:08 | P.CDIC_ITS ---
CDI Concurrent Query Documentation Clarification: PHYSICIAN'S DOCUMENTATION REQUEST Date of Query: 04/01/21 0808 Patient Name: Nikki Allisontatum Admit Date: 03/31/21 Dear Doctor, A review of the medical record indicates additional documentation may be needed. Please review below and update the documentation accordingly. Clinical Indicators: Risk Factors/Clinical Indicators/Treatments Per H&P 03/31/21: presented to the hospital with increased weakness, chills and confusion. ? Per exam, alert and oriented Per ED note, daughter reports history UTIs and this is how she reacts Based on the above, could you clarify in the Progress Notes which, if any of the following, is the most likely etiology of the confusion/altered mental status? * Encephalopathy - indicate type such as metabolic, toxic, septic, alcoholic, hypertensive, etc. * Acute delirium - indicate known or suspected etiology, such as postoperative, due to narcotics or other drugs, etc. * Acute or subacute confusional state due to (specify known or suspected etiology) * Other etiology (please specify) * Unable to determine Use of terms such as suspected, likely, concern for, or probable (associated with a specific diagnosis that is being evaluated, monitored, or treated as if it exists) are acceptable and can be coded in the inpatient setting, when documented at the time of discharge. Thank you, Ava Rowe RN Extension: [phone] Please use your independent medical judgment in providing your response. THIS QUERY IS PART OF THE PERMANENT MEDICAL RECORD Provider Response: Other ( acute septic encephalopathy) Other Diagnosis: acute septic encephalopathy
[2021-04-01] MEDS: dilTIAZem HCL CD 240 MG CAP.ER.DEG PO (09:16)
[2021-04-01] MEDS: Cholecalciferol (Vitamin D3) 25 MCG TABLET 50 MCG PO (09:16)
[2021-04-01] MEDS: Furosemide 40 MG/4 ML VIAL IVPUSH (09:16)
--- NOTE | 2021-04-01 10:20 | MHC.CM.PN ---
Met with pt to discuss d/c planning; Pt states she resides alone and is independent with all care needs. She has no services and uses a cane on occasion. Pt continues to drives and does not have barriers to care. HCP on file, IMM in chart. Vax x 3. Pt states her dtr will transport her home: no additional services anticipated.
--- NOTE | 2021-04-01 10:49 | PM.CNCAR ---
History of Present Illness History of Present Illness Date of Service: 04/01/21 Requesting physician: Bobby Valdez Chief complaint: Afib Narrative: 75-year-old presenting with sepsis secondary to urine tract infection. She has been noticed to be in AFib with RVR. This is a new diagnosis for her. She has no symptoms right now. She was given amiodarone and digoxin in the emergency department. She has background of sarcoidosis. Right now heart rate is 120 to 130s. She was given p.o. Cardizem in the ICU. Overall asymptomatic. Denies shortness of breath or chest pain. [facility] Past Medical History Medical History Bipolar 1 disorder COPD (chronic obstructive pulmonary disease) Dyslipidemia HTN (hypertension) Kidney disease Leukocytosis [place] nephropathy Necrotizing granulomatous inflammation of lung Vitamin D deficiency Family History Family History Child No Financial Resp No problems noted. Family/Other Substance use disorder Social History Social History Household Members: None Household Members Other:: daughter lives downstairs. Housing: House Do you presently have visiting nurse or other home services: No Patient Tobacco Use Status: Former Tobacco user Quit Date: 02/20/13 Years Smoked: 50 Second Hand Smoke Exposure: No Advance Directives Date on File: 04/01/21 service: No Current occupational status: retired Current occupational exposures/hazards: No Meds Allergies Allergy/AdvReac Type Severity Reaction Status Date / Time Sulfa (Sulfonamide Allergy Unknown RASH, Verified 03/31/21 20:28 Antibiotics) Anaphylaxis [SULFA (SULFONAMIDE ANTIBIOTICS)] Active Medications: Current Medications Acetaminophen (Acetaminophen 325 Mg Tablet) 650 mg PO Q6H PRN PRN Reason: Pain, Mild (Pain Scale 1-3) Last Admin: 03/31/21 17:35 Dose: 650 mg Documented by: Albuterol Sulfate (Albuterol Sulfate 90 Mcg 8 Gm Inhaler) 2 puff INHALE Q6H PRN PRN Reason: Wheezing Last Admin: 03/31/21 17:53 Dose: 2 puff Documented by: Albuterol/Ipratropium (Albuterol/Iprat 2.5/0.5mg 3 Ml Ampul.Neb) 3 ml INHALE RQ6H PRN PRN Reason: Shortness of Breath/Wheezing Last Admin: 04/01/21 00:11 Dose: 3 ml Documented by: Diltiazem HCl (Diltiazem Hcl Cd 240 Mg Cap.Er.Deg) 240 mg PO DAILY [facility]; Protocol Last Admin: 04/01/21 09:16 Dose: 240 mg Documented by: Enoxaparin Sodium (Enoxaparin Sodium 80 Mg/0.8 Ml Syringe) 80 mg SUBCUT Q24H [facility] Last Admin: 03/31/21 21:36 Dose: 80 mg Documented by: Piperacillin Sod/Tazobactam (Sod 2.25 gm/ Sodium Chloride) 50 mls @ 100 mls/hr IV Q8H [facility] Last Admin: 04/01/21 10:27 Dose: 100 mls/hr Documented by: Lamotrigine (Lamotrigine 25 Mg Tablet) 50 mg PO BEDTIME [facility] Last Admin: 03/31/21 21:35 Dose: 50 mg Documented by: Olanzapine (Olanzapine 7.5 Mg Tablet) 7.5 mg PO BEDTIME [facility] Last Admin: 03/31/21 21:36 Dose: 7.5 mg Documented by: Ondansetron HCl (Ondansetron Hcl 4 Mg/2 Ml Vial) 4 mg IVPUSH Q8H PRN PRN Reason: Nausea and Vomiting Pharmacy Consult (Consult Rx Vancomycin Dosing) 1 each MISCELLANE DAILY PRN PRN Reason: Consult order Sodium Chloride (0.9 % Sodium Chloride Flush 3 Ml Syringe) 3 ml IVFLUSH QSHIFT [facility] Last Admin: 04/01/21 09:16 Dose: 3 ml Documented by: Vitamin D (Cholecalciferol (Vitamin D3) 25 Mcg Tablet) 50 mcg PO DAILY [facility] Last Admin: 04/01/21 09:16 Dose: 50 mcg Documented by: Home Medications Medication Instructions Recorded Confirmed Last Taken Type albuterol sulfate 90 mcg/actuation 2 puff INHALATION Q6H PRN 09/23/20 03/31/21 03/30/21 History aerosol inhaler (Ventolin HFA) cholecalciferol (vitamin D3) 50 50 mcg PO DAILY 09/23/20 03/31/21 03/30/21 History mcg (2,000 unit) capsule lamotrigine 25 mg tablet 50 mg PO BEDTIME tab 09/23/20 03/31/21 03/30/21 History melatonin 10 mg tablet 10 mg PO BEDTIME 03/31/21 03/31/21 03/30/21 History olanzapine 7.5 mg tablet 1 tab PO BEDTIME 03/31/21 03/31/21 03/30/21 History tiotropium 2.5 mcg-olodaterol 2.5 2 puff INHALATION DAILY 03/31/21 03/31/21 03/30/21 History mcg/actuation mist for inhalation (Stiolto Respimat) Physical Exam Vital Signs: Vital Signs: Last Vital Signs Temp 98.8 F 04/01/21 07:58 Pulse 127 H 04/01/21 09:57 Resp 23 H 04/01/21 08:52 BP 107/48 L 04/01/21 09:57 Pulse Ox 94 04/01/21 09:57 BMI result Body Mass Index 37.3 GENERAL APPEARANCE: in no acute distress, pleasant. NECK: no carotid bruit, + jugular venous distention. SKIN: no suspicious lesions, warm and dry. HEART: no murmurs, irregular rate and rhythm. LUNGS: Few expiratory wheezes. ABDOMEN: soft, nontender. EXTREMITIES: no edema. PERIPHERAL PULSES: equal. NEUROLOGIC: No gross deficits, AAO X 3 Objective Labs and Meds Result diagrams: 04/01/21 05:46 04/01/21 05:46 Lab results: Laboratory Results - last 24 hr 03/31/21 03/31/21 03/31/21 10:07 10:07 12:14 WBC RBC Hgb Hct MCV MCH MCHC RDW Plt Count MPV Absolute Nucleated RBC Nucleated RBC % (auto) Sodium Potassium Chloride Carbon Dioxide Anion Gap BUN Creatinine Estim Creat Clear Calc Estimated GFR POC Glucose Random Glucose Lactic Acid 1.4 Calcium Phosphorus Magnesium 1.9 Albumin Urine Color YELLOW Urine Appearance CLOUDY Urine pH 6.5 Ur Specific [place] 1.020 Urine Protein 3+ H Urine Glucose (UA) NEG Urine Ketones NEG Urine Blood 3+ H Urine Nitrite POS H Ur Leukocyte Esterase 2+ H Urine RBC 76-150 H Urine WBC 76-150 H Ur Squamous Epith Cells TRACE Ur Renal Epithelial Cell TRACE Urine Bacteria TRACE Urine Mucus 1+ Ur Random Sodium Urine Creatinine 03/31/21 03/31/21 04/01/21 17:12 Unknown 05:46 WBC 18.8 H RBC 4.06 L Hgb 12.0 Hct 39.1 MCV 96.3 D MCH 29.6 MCHC 30.7 L RDW 12.9 Plt Count 97 L MPV 12.1 Absolute Nucleated RBC 0.000 Nucleated RBC % (auto) 0.0 Sodium Potassium Chloride Carbon Dioxide Anion Gap BUN Creatinine Estim Creat Clear Calc Estimated GFR POC Glucose 100 Random Glucose Lactic Acid Calcium Phosphorus Magnesium Albumin Urine Color Urine Appearance Urine pH Ur Specific [place] Urine Protein Urine Glucose (UA) Urine Ketones Urine Blood Urine Nitrite Ur Leukocyte Esterase Urine RBC Urine WBC Ur Squamous Epith Cells Ur Renal Epithelial Cell Urine Bacteria Urine Mucus Ur Random Sodium 56.0 Urine Creatinine 153.27 04/01/21 05:46 WBC RBC Hgb Hct MCV MCH MCHC RDW Plt Count MPV Absolute Nucleated RBC Nucleated RBC % (auto) Sodium 140 Potassium 4.1 Chloride 112 H Carbon Dioxide 16 L Anion Gap 16 BUN 42 H Creatinine 3.45 H Estim Creat Clear Calc 14.3 Estimated GFR 13 POC Glucose Random Glucose 169 H Lactic Acid Calcium 8.0 L D Phosphorus 3.8 Magnesium 2.1 Albumin 3.3 L Urine Color Urine Appearance Urine pH Ur Specific [place] Urine Protein Urine Glucose (UA) Urine Ketones Urine Blood Urine Nitrite Ur Leukocyte Esterase Urine RBC Urine WBC Ur Squamous Epith Cells Ur Renal Epithelial Cell Urine Bacteria Urine Mucus Ur Random Sodium Urine Creatinine Imaging Radiologist's impression: Impressions Abdomen/Pelvis CT 03/31/21 20:20 IMPRESSION: 1. No renal calculi or hydronephrosis of either kidney. 2. 5.7 cm right renal cyst. 3. Diffusely decreased liver attenuation suggesting hepatic steatosis. Correlation with liver enzymes recommended. 4. Mild to moderate colonic diverticulosis without CT evidence to suggest active diverticulitis. 5. There appears to be diffuse fatty mucosal infiltration involving the ascending and transverse colon which is nonspecific in nature. Clinical correlation recommended. 6. Within the right pelvis there is a heterogeneous, predominantly fatty structure which measures approximately 4.3 cm. This structure is nonspecific but suspected to be adnexal in origin and therefore likely a dermoid. Further evaluation can be obtained with ultrasound imaging of the pelvis, both transabdominal and transvaginal. Fleischner guidelines were followed. Assessment and Plan (1) Atrial fibrillation with RVR: Status: Acute Plan Pleasant 75-year-old female who has background history of hypertension and sarcoidosis who is presenting with urinary tract infection and septic shock. Volume resuscitated and improving. Also noticed to be in AFib with RVR. She was given amiodarone due to hypotension along with digoxin initially. Overall blood pressure is better now and she was given p.o. Cardizem in the ICU today. We will see if he can tolerate Cardizem. If she had recurrent hypotension with Cardizem then I think she is not tolerating it and we may have to change her strategy. In that case I will favor a combination of digoxin and beta-juana. She has background of sarcoidosis which tends sometime effect the heart too. I would check echocardiogram to assess for any cardiomyopathy. This will also help us decide about the correct medications regimen for her. She will need anticoagulation based on her chads Vasc score. She has distended neck veins and I would avoid further IV fluids to her. If she remains stable then I think she should be diuresed gently. Thank you for allowing me to participate in the care of your patient. Please feel free to contact me if you have any questions. Procedures Date of Service Date of Service: 04/01/21
--- NOTE | 2021-04-01 13:43 | P.PNCC_ITS ---
Subjective Subjective Date of Service: 04/01/21 Interval History: 75-year-old lady with underlying history of bipolar disorder, COPD, CKD, necrotizing lung granulomas, admitted on 03/31/2021 with weakness. patient was admitted for gram-negative bacteremia with likely urinary source triggering AFib with RVR with resultant hypotension requiring initiation of amiodarone drip and transfer to intensive care unit. Overnight patient has been transition to p.o. amiodarone and Cardizem. Her heart rate control and blood pressure have improved. Critical Care Time (minutes): 0 Physical Exam Vital Signs: Vital Signs: Last Vital Signs Temp 98.8 F 04/01/21 07:58 Pulse 120 H 04/01/21 13:00 Resp 36 H 04/01/21 13:00 BP 126/58 L 04/01/21 13:00 Pulse Ox 95 04/01/21 13:00 BMI result Body Mass Index 37.3 Const: General: no acute distress, alert and awake Eyes: Sclerae: sclerae normal EOM: EOMs intact bilaterally Neck: Neck: Yes no lymphadenopathy, Yes trachea midline and Yes supple Resp: Effort & Inspection: normal respiratory effort and no respiratory distress Auscultation: clear to auscultation bilaterally Cardio: Rate: tachycardic Rhythm: abnormal rhythm irregularly irregular Heart sounds: no gallops, no murmurs and no rubs GI: Palpation (GI): Soft to palpation and Other GI palpation findings present ( Nontender) Auscultation: normal bowel sounds Extrem: General: No clubbing, No cyanosis and Yes pedal edema ( trace bilateral) Objective Data Labs CBC & Chem 7: 04/01/21 05:46 04/01/21 05:46 Labs: Laboratory Results - last 24 hr 03/31/21 03/31/21 03/31/21 10:07 17:12 Unknown WBC RBC Hgb Hct MCV MCH MCHC RDW Plt Count MPV Absolute Nucleated RBC Nucleated RBC % (auto) Sodium Potassium Chloride Carbon Dioxide Anion Gap BUN Creatinine Estim Creat Clear Calc Estimated GFR POC Glucose 100 Random Glucose Calcium Phosphorus Magnesium 1.9 Albumin Ur Random Sodium 56.0 Urine Creatinine 153.27 04/01/21 04/01/21 05:46 05:46 WBC 18.8 H RBC 4.06 L Hgb 12.0 Hct 39.1 MCV 96.3 D MCH 29.6 MCHC 30.7 L RDW 12.9 Plt Count 97 L MPV 12.1 Absolute Nucleated RBC 0.000 Nucleated RBC % (auto) 0.0 Sodium 140 Potassium 4.1 Chloride 112 H Carbon Dioxide 16 L Anion Gap 16 BUN 42 H Creatinine 3.45 H Estim Creat Clear Calc 14.3 Estimated GFR 13 POC Glucose Random Glucose 169 H Calcium 8.0 L D Phosphorus 3.8 Magnesium 2.1 Albumin 3.3 L Ur Random Sodium Urine Creatinine Microbiology Microbiology Results: Microbiology 03/31/21 12:14 Urine Catheterized - Straight Catheter Urine Culture - Preliminary Culture in progress. 03/31/21 10:27 Blood - Venous Blood Culture - Preliminary Gram negative betsey 03/31/21 10:10 Blood - Venous Blood Culture - Preliminary Gram negative betsey Progress Note: A&P Assessment and plan (1) Gram-negative bacteremia: Status: Acute (2) Acute UTI: Status: Acute (3) Atrial fibrillation with RVR: Status: Acute (4) [id number] kidney injury: Status: Acute Plan Assessment: 75-year-old lady with underlying bipolar disease, COPD, chronic kidney disease admitted with gram-negative bacteremia with likely source resulting in AFib with RVR Plan: Neuro: acute septic encephalopathy, resolved. Cardiac: AFib with RVR, improved with amiodarone and Cardizem. Cardiology service care appreciated. Pulmonary: No acute issues. Renal: Acute kidney injury on background of chronic renal disease. Non oliguric. Continue to monitor renal indices and urine output. Endo: No acute issues. GI: No acute issues. ID: Gram-negative bacteremia with likely source. Continues on broad- spectrum antibiotic coverage with pending cultures. Heme/Onc: No acute issues. Psych: No acute issues. Miscellaneous: No acute issues. Prophylaxis: Lovenox Diet: regular Quality Stroke Does the patient have a stroke diagnosis?: No VTE Prior VTE?: No VTE Risk Level:: Medical - moderate - high VTE Device Contraindication: Treatment Not Indicated VTE Drug Contraindication: N/A - Med Ordered
[2021-04-01 14:33] LABS: Anion Gap 15 (12-20); Blood Urea Nitrogen 46 mg/dL (9-16); Calcium 8.3 mg/dL (8.4-10.2); Carbon Dioxide 19 mmol/L (22-29); Chloride 110 mmol/L (96-108); Estimated Glomerular Filt Rate 13; Glucose Random 142 mg/dL (60-115); Potassium 4.1 mmol/L (3.3-5.1); Sodium 140 mmol/L (135-145)
[2021-04-01] MEDS: Acetaminophen 325 MG TABLET 650 MG PO (18:16)
[2021-04-01] MEDS: Enoxaparin Sodium 80 MG/0.8 ML SYRINGE SUBCUT (20:04)
[2021-04-01] MEDS: OLANZapine 7.5 MG TABLET PO (20:04)
[2021-04-01] MEDS: lamoTRIgine 25 MG TABLET 50 MG PO (20:04)
[2021-04-01] MEDS: Atorvastatin Calcium 10 MG TABLET PO (21:22)
[2021-04-01] MEDS: Benzonatate 100 MG CAPSULE PO (21:22)
[2021-04-02] VITALS (8 sets, daily range): BP systolic 106–137; BP diastolic 52–65; PULSE 53–110; RESP 16–20; TEMP 35.8–38.4; O2SAT 93–95
[2021-04-02] MEDS: Piperacillin Sodium/Tazobactam 2.25 GM in 0.9 % Sodium Chloride 50 ML IV (01:56)
[2021-04-02 06:59] LABS: MANUAL DIFF FLAG NO
[2021-04-02 07:01] LABS: Basophils Percent Auto 0.1 % (0-2); Eosinophils Absolute Auto 0.3 X10*3/uL (0.0-0.4); Eosinophils Percent Auto 1.8 % (0-4); Hematocrit 34.6 % (37.0-47.0); Hemoglobin 11.2 g/dl (12.0-16.0); Imm Gran Abs Auto 0.11 X10*3/uL (0.00-0.03); Imm Gran Pct Auto 0.8 % (0.0-0.4); Lymphocytes Absolute Auto 0.6 X10*3/uL (1.2-4.9); Lymphocytes Percent Auto 4.4 % (20-40); Mean Corpuscular HGB Conc 32.4 g/dl (31.0-35.0); Mean Corpuscular Hemoglobin 29.8 pg (27.0-33.0); Monocytes Absolute Auto 0.8 X10*3/uL (0.1-1.2); Monocytes Percent Auto 5.9 % (2-11); Neutrophils Absolute Auto 12.2 x10*3/uL (2.0-8.3); Platelet Count 115 X10*3/uL (160-400); Red Blood Count 3.76 X10*6/uL (4.20-5.50)
[2021-04-02 07:18] LABS: Anion Gap 13 (12-20); Blood Urea Nitrogen 48 mg/dL (9-16); Calcium 8.6 mg/dL (8.4-10.2); Carbon Dioxide 22 mmol/L (22-29); Chloride 111 mmol/L (96-108); Estimated Glomerular Filt Rate 13; Glucose Random 113 mg/dL (60-115); Sodium 142 mmol/L (135-145)
[2021-04-02] MEDS: Benzonatate 100 MG CAPSULE PO (09:20)
[2021-04-02] MEDS: 0.9 % Sodium Chloride Flush 3 ML SYRINGE IVFLUSH ×3 (09:20→20:13)
[2021-04-02] MEDS: cefTRIAXone sodium 1 GM in 0.9 % Sodium Chloride 50 ML IV (09:20)
[2021-04-02] MEDS: dilTIAZem HCL CD 240 MG CAP.ER.DEG PO (09:20)
[2021-04-02] MEDS: Cholecalciferol (Vitamin D3) 25 MCG TABLET 50 MCG PO (09:20)
--- NOTE | 2021-04-02 11:39 | HO.PM.IMPN ---
Subjective Subjective Date of Service: 04/02/21 Interval History: the patient was seen and evaluated this morning Laying in bed, feels mild improvement Heart rate better controlled today Denies any fever, chills or chest pain No reported other overnight events. Review of Systems Reporting generalized weakness No chest pain, palpitation No shortness of breath or coughing No abdominal pain, nausea or vomiting Right-sided flank pain No urinary symptoms No any rash or wounds Physical Exam Vital Signs: Vital Signs: Last Vital Signs Temp 96.8 F 04/02/21 11:02 Pulse 110 H 04/02/21 11:21 Resp 18 04/02/21 11:21 BP 127/62 04/02/21 11:02 Pulse Ox 93 04/02/21 11:02 BMI result Body Mass Index 37.3 Const: Other: Constitutional : Alert, interactive, not in distress Neck : Normal inspection, Supple Cardiovascular : Irregular irregular, S1 S2, no lower extremity edema, tachycardia Respiratory : Fair bilateral air entry, no crackles, bilateral wheezes Gastrointestinal: soft, lax, Normal bowel sounds, Non tender Skin : Warm, Dry Neurological : Alert & oriented x3, No focal deficit Objective Data Active Medications Acetaminophen (Acetaminophen 325 Mg Tablet) 650 mg PO Q6H PRN PRN Reason: Pain, Mild (Pain Scale 1-3) Last Admin: 04/01/21 18:16 Dose: 650 mg Documented by: MARRY Atorvastatin Calcium (Atorvastatin Calcium 10 Mg Tablet) 10 mg PO BEDTIME [facility] Last Admin: 04/01/21 21:22 Dose: 10 mg Documented by: ERLIN Benzonatate (Benzonatate 100 Mg Capsule) 100 mg PO TID PRN PRN Reason: Cough Last Admin: 04/02/21 09:20 Dose: 100 mg Documented by: KEVIN Diltiazem HCl (Diltiazem Hcl Cd 240 Mg Cap.Er.Deg) 240 mg PO DAILY [facility]; Protocol Last Admin: 04/02/21 09:20 Dose: 240 mg Documented by: KEVIN Enoxaparin Sodium (Enoxaparin Sodium 80 Mg/0.8 Ml Syringe) 80 mg SUBCUT Q24H [facility] Last Admin: 04/01/21 20:04 Dose: 80 mg Documented by: ERLIN Ceftriaxone Sodium 1 gm/ (Sodium Chloride) 50 mls @ 100 mls/hr IV Q24H [facility] Last Infusion: 04/02/21 10:16 Dose: 0 mls/hr Documented by: KEVIN Ipratropium [place] (Ipratropium [place] 0.5 Mg/2.5 Ml Solution) 0.5 mg INHALE RQ4H PRN PRN Reason: Wheezing Lamotrigine (Lamotrigine 25 Mg Tablet) 50 mg PO BEDTIME [facility] Last Admin: 04/01/21 20:04 Dose: 50 mg Documented by: ERLIN Levalbuterol HCl (Levalbuterol Hcl 1.25 Mg/0.5 Ml Vial.Neb) 1.25 mg INHALE RQ6H WHILE AWAKE [facility] Last Admin: 04/02/21 11:21 Dose: 1.25 mg Documented by: NICK Olanzapine (Olanzapine 7.5 Mg Tablet) 7.5 mg PO BEDTIME [facility] Last Admin: 04/01/21 20:04 Dose: 7.5 mg Documented by: ERLIN Ondansetron HCl (Ondansetron Hcl 4 Mg/2 Ml Vial) 4 mg IVPUSH Q8H PRN PRN Reason: Nausea and Vomiting Pharmacy Consult (Consult Rx Vancomycin Dosing) 1 each MISCELLANE DAILY PRN PRN Reason: Consult order Sodium Chloride (0.9 % Sodium Chloride Flush 3 Ml Syringe) 3 ml IVFLUSH QSHIFT [facility] Last Admin: 04/02/21 09:20 Dose: 3 ml Documented by: KEVIN Vitamin D (Cholecalciferol (Vitamin D3) 25 Mcg Tablet) 50 mcg PO DAILY [facility] Last Admin: 04/02/21 09:20 Dose: 50 mcg Documented by: KEVIN Labs CBC & Chem 7: 04/02/21 06:30 04/02/21 06:30 Labs: Laboratory Results - last 24 hr 04/01/21 04/02/21 04/02/21 14:08 06:30 06:30 MCV 92.0 MCH 29.8 MCHC 32.4 RDW 13.0 Plt Count 115 L MPV 12.0 Immature Gran % (Auto) 0.8 H Neut % (Auto) 87.0 H Lymph % (Auto) 4.4 L [place] % (Auto) 5.9 Eos % (Auto) 1.8 Baso % (Auto) 0.1 Lymph # (Auto) 0.6 L [place] # (Auto) 0.8 Eos # (Auto) 0.3 Baso # (Auto) 0.0 Abs Immat Gran (auto) 0.11 H Absolute Neuts (auto) 12.2 H Absolute Nucleated RBC 0.000 Nucleated RBC % (auto) 0.0 Anion Gap 15 13 Estim Creat Clear Calc 14.0 14.0 Estimated GFR 13 13 Random Glucose 142 H 113 Calcium 8.3 L 8.6 Microbiology Microbiology Results: Microbiology 03/31/21 12:14 Urine Culture - Preliminary Urine Catheterized - Straight Catheter Gram negative betsey 03/31/21 10:27 Blood Culture - Final Blood - Venous Escherichia coli 03/31/21 10:10 Blood Culture - Final Blood - Venous Escherichia coli Assessment and Plan (1) Gram-negative bacteremia: Status: Acute (2) Sepsis: Status: Acute (3) Atrial fibrillation with RVR: Status: Acute (4) [id number] kidney injury: Status: Acute Plan A 75 years old lady with PMH of COPD, osteopenia among others who presented to the hospital with increased weakness, chills and confusion. Sepsis Secondary E coli bacteremia Source is likely the urine Urine and blood culture growing E coli Antibiotics changed back to ceftriaxone New onset atrial fibrillation with RVR Secondary to sepsis Echo within normal Continue amiodarone p.o. Continue Cardizem 240 CD On full-dose Lovenox Cardiology input appreciated Dmitry I on CKD stage 3 Secondary to sepsis Creatinine stable around 3.5 now, likely ATN CT ruled out any obstruction Discontinue hydration , avoid nephrotoxic medications Follow urine output Follow BMP Nephrology consult pending Continue rest of her home medications DVT PPX Lovenox Quality Stroke Does the patient have a stroke diagnosis?: No VTE Prior VTE?: No VTE Risk Level:: Medical - moderate - high VTE Device Contraindication: Treatment Not Indicated VTE Drug Contraindication: N/A - Med Ordered
--- NOTE | 2021-04-02 12:43 | PM.PNCARD ---
Subjective Subjective Date of Service: 04/02/21 Interval history: [place] better. Appetite improving. No CP or SOB. continues to be in Afib with RVR. Physical Exam Vital Signs: Last Vital Signs Temp 96.8 F 04/02/21 11:02 Pulse 110 H 04/02/21 11:21 Resp 18 04/02/21 11:21 BP 127/62 04/02/21 11:02 Pulse Ox 93 04/02/21 11:02 BMI result Body Mass Index 37.3 GENERAL APPEARANCE: in no acute distress, pleasant. NECK: no carotid bruit, + jugular venous distention. SKIN: no suspicious lesions, warm and dry. HEART: no murmurs, irregular rate and rhythm. LUNGS:? Lungs clear ABDOMEN: soft, nontender. EXTREMITIES: no edema. PERIPHERAL PULSES: equal. NEUROLOGIC: No gross deficits, AAO X 3 Objective Labs and Meds Result diagrams: 04/02/21 06:30 04/02/21 06:30 Lab results: Laboratory Results - last 24 hr 04/01/21 04/02/21 04/02/21 14:08 06:30 06:30 WBC 14.0 H RBC 3.76 L Hgb 11.2 L Hct 34.6 L MCV 92.0 MCH 29.8 MCHC 32.4 RDW 13.0 Plt Count 115 L MPV 12.0 Immature Gran % (Auto) 0.8 H Neut % (Auto) 87.0 H Lymph % (Auto) 4.4 L [place] % (Auto) 5.9 Eos % (Auto) 1.8 Baso % (Auto) 0.1 Lymph # (Auto) 0.6 L [place] # (Auto) 0.8 Eos # (Auto) 0.3 Baso # (Auto) 0.0 Abs Immat Gran (auto) 0.11 H Absolute Neuts (auto) 12.2 H Absolute Nucleated RBC 0.000 Nucleated RBC % (auto) 0.0 Sodium 140 142 Potassium 4.1 4.0 Chloride 110 H 111 H Carbon Dioxide 19 L 22 Anion Gap 15 13 BUN 46 H 48 H Creatinine 3.53 H 3.51 H Estim Creat Clear Calc 14.0 14.0 Estimated GFR 13 13 Random Glucose 142 H 113 Calcium 8.3 L 8.6 Progress Note: A&P Assessment and plan (1) Gram-negative bacteremia: Status: Acute (2) Atrial fibrillation with RVR: Status: Acute (3) Sarcoidosis: Status: Acute Plan Pleasant 75-year-old background sarcoidosis who presented with UTI and sepsis. She was noted to be in AFib with RVR. After volume resuscitation she improved. Continues with AFib. She was started on Cardizem in the ICU. She has the fairly high gradient across the mitral valve on echocardiography. She was in AFib with heart rate approximately in 110s and was quite hyperdynamic and septic at bedtime. I think we should try to keep her as slow as possible and I am adding metoprolol. Once she is fairly rate controlled and on repeat echocardiogram to reassess the mitral valve. I think there is some degree of stenosis but severity is unclear right now. Thank you for allowing me to participate in the care of your patient. Please feel free to contact me if you have any questions. Fall Risk Details Current Medications: Current Medications Acetaminophen (Acetaminophen 325 Mg Tablet) 650 mg PO Q6H PRN PRN Reason: Pain, Mild (Pain Scale 1-3) Last Admin: 04/01/21 18:16 Dose: 650 mg Documented by: Amiodarone HCl (Amiodarone Hcl 200 Mg Tablet) 400 mg PO BID [facility] Atorvastatin Calcium (Atorvastatin Calcium 10 Mg Tablet) 10 mg PO BEDTIME [facility] Last Admin: 04/01/21 21:22 Dose: 10 mg Documented by: Benzonatate (Benzonatate 100 Mg Capsule) 100 mg PO TID PRN PRN Reason: Cough Last Admin: 04/02/21 09:20 Dose: 100 mg Documented by: Diltiazem HCl (Diltiazem Hcl Cd 240 Mg Cap.Er.Deg) 240 mg PO DAILY [facility]; Protocol Last Admin: 04/02/21 09:20 Dose: 240 mg Documented by: Enoxaparin Sodium (Enoxaparin Sodium 80 Mg/0.8 Ml Syringe) 80 mg SUBCUT Q24H [facility] Last Admin: 04/01/21 20:04 Dose: 80 mg Documented by: Ceftriaxone Sodium 1 gm/ (Sodium Chloride) 50 mls @ 100 mls/hr IV Q24H [facility] Last Infusion: 04/02/21 10:16 Dose: Infused Documented by: Ipratropium [place] (Ipratropium [place] 0.5 Mg/2.5 Ml Solution) 0.5 mg INHALE RQ4H PRN PRN Reason: Wheezing Lamotrigine (Lamotrigine 25 Mg Tablet) 50 mg PO BEDTIME [facility] Last Admin: 04/01/21 20:04 Dose: 50 mg Documented by: Levalbuterol HCl (Levalbuterol Hcl 1.25 Mg/0.5 Ml Vial.Neb) 1.25 mg INHALE RQ6H WHILE AWAKE [facility] Last Admin: 04/02/21 11:21 Dose: 1.25 mg Documented by: Olanzapine (Olanzapine 7.5 Mg Tablet) 7.5 mg PO BEDTIME [facility] Last Admin: 04/01/21 20:04 Dose: 7.5 mg Documented by: Ondansetron HCl (Ondansetron Hcl 4 Mg/2 Ml Vial) 4 mg IVPUSH Q8H PRN PRN Reason: Nausea and Vomiting Pharmacy Consult (Consult Rx Vancomycin Dosing) 1 each MISCELLANE DAILY PRN PRN Reason: Consult order Sodium Chloride (0.9 % Sodium Chloride Flush 3 Ml Syringe) 3 ml IVFLUSH QSHIFT [facility] Last Admin: 04/02/21 09:20 Dose: 3 ml Documented by: Vitamin D (Cholecalciferol (Vitamin D3) 25 Mcg Tablet) 50 mcg PO DAILY [facility] Last Admin: 04/02/21 09:20 Dose: 50 mcg Documented by: Time Spent With Patient Time: Total time spent is greater than 50% in coordination of care (as documented) at patient's floor/unit and/or counseling patient: Time with patient: 15 - 24 minutes Progress Note: Quality Stroke Does the patient have a stroke diagnosis?: No Procedures Date of Service Date of Service: 04/02/21
[2021-04-02] MEDS: Amiodarone HCL 200 MG TABLET 400 MG PO (13:08)
[2021-04-02] MEDS: Metoprolol Tartrate 25 MG TABLET PO ×2 (16:22→20:12)
[2021-04-02 18:15] LABS: Vancomycin Trough 13.6 mcg/mL (10.0-20.0)
--- NOTE | 2021-04-02 18:53 | P.CONNP_ITS ---
History of Present Illness Reason for Consult Consult date: 04/02/21 Reason for consult: SHARON setting of CKD Chief Complaint Chief complaint: Afib History of Present Illness Narrative: 75 years old lady with PMH of CKD 3 (BL S-Cr ~ 1.3-1.5 mg/dL), COPD, osteopenia among others who presented to the hospital with increased weakness, chills and confusion.? Prior to admission he had been feeling weaker than normal. She felt unable to stand up and almost falling associated with tremors and becoming more confused.?Her daughter reported that she had some right flank up pain but no associated abdominal pain, nausea, vomiting, dysuria or other urinary symptoms.? ?In the emergency she was found febrile, tachycardic with new onset atrial fibrillation with RVR controlled with amiodarone after consulting Cardiology.? Admitted to the hospital for treatment of sepsis and AFib with RVR. Initial S-Cr was 2.89 mg/dL on 03/31 however S-Cr has slowly uptrended to 3.51 mg/dL on 04/02. Review of Systems Review of Systems Yes all other systems are reviewed and are negative Constitutional: Reports as per HPI and Reports no additional constitutional complaints PMFSH Past Medical History Medical History Bipolar 1 disorder COPD (chronic obstructive pulmonary disease) Dyslipidemia HTN (hypertension) Kidney disease Leukocytosis [place] nephropathy Necrotizing granulomatous inflammation of lung Vitamin D deficiency Family History Family History Child No Financial Resp No problems noted. Family/Other Substance use disorder Social History Social History Household Members: None Household Members Other:: daughter lives downstairs. Housing: House Do you presently have visiting nurse or other home services: No Patient Tobacco Use Status: Former Tobacco user Quit Date: 02/20/13 Years Smoked: 50 Second Hand Smoke Exposure: No Advance Directives Date on File: 04/01/21 service: No Current occupational status: retired Current occupational exposures/hazards: No Meds Allergies Allergy/AdvReac Type Severity Reaction Status Date / Time Sulfa (Sulfonamide Allergy Unknown RASH, Verified 02/09/22 20:28 Antibiotics) Anaphylaxis [SULFA (SULFONAMIDE ANTIBIOTICS)] Active Medications: Current Medications Acetaminophen (Acetaminophen 325 Mg Tablet) 650 mg PO Q6H PRN PRN Reason: Pain, Mild (Pain Scale 1-3) Last Admin: 04/01/21 18:16 Dose: 650 mg Documented by: Atorvastatin Calcium (Atorvastatin Calcium 10 Mg Tablet) 10 mg PO BEDTIME KENNEY Last Admin: 04/01/21 21:22 Dose: 10 mg Documented by: Benzonatate (Benzonatate 100 Mg Capsule) 100 mg PO TID PRN PRN Reason: Cough Last Admin: 04/02/21 09:20 Dose: 100 mg Documented by: Diltiazem HCl (Diltiazem Hcl Cd 240 Mg Cap.Er.Deg) 240 mg PO DAILY KENNEY; Protocol Last Admin: 04/02/21 09:20 Dose: 240 mg Documented by: Enoxaparin Sodium (Enoxaparin Sodium 80 Mg/0.8 Ml Syringe) 80 mg SUBCUT Q24H KENNEY Last Admin: 04/01/21 20:04 Dose: 80 mg Documented by: Ceftriaxone Sodium 1 gm/ (Sodium Chloride) 50 mls @ 100 mls/hr IV Q24H KENNEY Last Infusion: 04/02/21 10:16 Dose: Infused Documented by: Ipratropium [place] (Ipratropium [place] 0.5 Mg/2.5 Ml Solution) 0.5 mg INHALE RQ4H PRN PRN Reason: Wheezing Lamotrigine (Lamotrigine 25 Mg Tablet) 50 mg PO BEDTIME KENNEY Last Admin: 04/01/21 20:04 Dose: 50 mg Documented by: Levalbuterol HCl (Levalbuterol Hcl 1.25 Mg/0.5 Ml Vial.Neb) 1.25 mg INHALE RQ6H WHILE AWAKE KENNEY Last Admin: 04/02/21 15:42 Dose: Not Given Documented by: Metoprolol Tartrate (Metoprolol Tartrate 25 Mg Tablet) 25 mg PO TID KENNEY; Protocol Last Admin: 04/02/21 16:22 Dose: 25 mg Documented by: Olanzapine (Olanzapine 7.5 Mg Tablet) 7.5 mg PO BEDTIME KENNYE Last Admin: 04/01/21 20:04 Dose: 7.5 mg Documented by: Ondansetron HCl (Ondansetron Hcl 4 Mg/2 Ml Vial) 4 mg IVPUSH Q8H PRN PRN Reason: Nausea and Vomiting Pharmacy Consult (Consult Rx Vancomycin Dosing) 1 each MISCELLANE DAILY PRN PRN Reason: Consult order Sodium Chloride (0.9 % Sodium Chloride Flush 3 Ml Syringe) 3 ml IVFLUSH QSHIFT [facility] Last Admin: 04/02/21 16:23 Dose: 3 ml Documented by: Vitamin D (Cholecalciferol (Vitamin D3) 25 Mcg Tablet) 50 mcg PO DAILY [facility] Last Admin: 04/02/21 09:20 Dose: 50 mcg Documented by: Home Medications Medication Instructions Recorded Confirmed Last Taken Type albuterol sulfate 90 mcg/actuation 2 puff INHALATION Q6H PRN 09/23/20 03/31/21 03/30/21 History aerosol inhaler (Ventolin HFA) cholecalciferol (vitamin D3) 50 50 mcg PO DAILY 09/23/20 03/31/21 03/30/21 History mcg (2,000 unit) capsule lamotrigine 25 mg tablet 50 mg PO BEDTIME tab 09/23/20 03/31/21 03/30/21 History melatonin 10 mg tablet 10 mg PO BEDTIME 03/31/21 03/31/21 03/30/21 History olanzapine 7.5 mg tablet 1 tab PO BEDTIME 03/31/21 03/31/21 03/30/21 History tiotropium 2.5 mcg-olodaterol 2.5 2 puff INHALATION DAILY 03/31/21 03/31/21 03/30/21 History mcg/actuation mist for inhalation (Stiolto Respimat) Physical Exam Vital Signs: Last Vital Signs Temp 98.0 F 04/02/21 15:57 Pulse 96 04/02/21 15:57 Resp 16 04/02/21 15:57 BP 106/59 L 04/02/21 15:57 Pulse Ox 94 04/02/21 15:57 BMI result Body Mass Index 37.3 Neck Neck: Yes no JVD Chest Chest palpation & inspection: normal inspection of the chest Resp Effort & Inspection: normal respiratory effort Cardio Jugular venous distension: no JVD Rate: regular rate Rhythm: abnormal rhythm GI Auscultation: normal bowel sounds Extrem General: Yes no pedal edema Results Lab Results Result Diagrams: 04/02/21 06:30 04/02/21 06:30 Lab results: Chemistry 02/11/1104/01/21 04/01/21 10:07 05:46 14:08 Sodium 140 140 140 Potassium 4.5 4.1 4.1 Carbon Dioxide 24 16 L 19 L BUN 37 H 42 H 46 H Creatinine 2.89 H 3.45 H 3.53 H Calcium 9.1 D 8.0 L D 8.3 L Phosphorus 3.8 04/02/21 06:30 Sodium 142 Potassium 4.0 Carbon Dioxide 22 BUN 48 H Creatinine 3.51 H Calcium 8.6 Phosphorus Hematology 03/31/21 04/01/21 04/02/21 10:07 05:46 06:30 WBC 15.4 H 18.8 H 14.0 H Hgb 12.6 12.0 11.2 L Plt Count 109 L 97 L 115 L Urinalysis 03/31/21 12:14 Urine Color YELLOW Urine Appearance CLOUDY Urine pH 6.5 Ur Specific [place] 1.020 Urine Protein 3+ H Urine Glucose (UA) NEG Urine Ketones NEG Urine Blood 3+ H Urine Nitrite POS H Ur Leukocyte Esterase 2+ H Urine RBC 76-150 H Urine WBC 76-150 H Ur Squamous Epith Cells TRACE Urine Studies 03/31/21 Unknown Urine Creatinine 153.27 Assessment and Plan (1) Acute kidney injury (nontraumatic): Status: Acute Plan 75 years old lady with PMH of COPD, osteopenia among others who presented to the hospital with increased weakness, chills and confusion.? The patient reports that she has been feeling weaker for the last day but things worsened this morning as she felt unable to stand up and almost falling associated with tremors and becoming more confused.? She could not tell if she had a fever or no.? Her daughter reported that she had some right flank up pain but no associated abdominal pain, nausea, vomiting, dysuria or other urinary symptoms.? ?In the emergency she was found febrile, tachycardic with new onset atrial fibrillation with RVR controlled with amiodarone after consulting Cardiology. S-Cr has been slowly up-trending despite medical mgt. #) SHARON on CKD: The patient has history of CKD with BL S-Cr ~ 1.3-1.5 mg/dL until 09/2020 but presented on 03/31 with S-Cr = 2.89. She was also complaining of weakness and flank pain. She was noted to have UA consistent with uti and subsequent urine micro is now demonstrating e.coli. Suggest continued IVF's with LR at 100 ml/hr for 1 additional liter. repeat renal panel in am. CT had no evidence of hydronephrosis however there is no urine output docume nted. I suspect her uti is secondary to hypovolemia 2/2 uti. Avoidance of n-toxic medications such as acei/arb, contrast, nsaids, renal dosing abx. Please add urine studies in am to include: U-K, U-Na, U-Cr, U-UN no indication for ENERGY ECONOMIST but will follow along for clinical decompensation. Her history of Li use puts her at increased risk for progression to ESRD. Thank you for allowing me to take part in the care of this patient. Nephrology will follow along. Procedures Date of Service Date of Service: 04/02/21
[2021-04-02] MEDS: Acetaminophen 325 MG TABLET 650 MG PO (20:11)
[2021-04-02] MEDS: lamoTRIgine 25 MG TABLET 50 MG PO (20:11)
[2021-04-02] MEDS: OLANZapine 7.5 MG TABLET PO (20:11)
[2021-04-02] MEDS: Atorvastatin Calcium 10 MG TABLET PO (20:12)
[2021-04-02] MEDS: Enoxaparin Sodium 80 MG/0.8 ML SYRINGE SUBCUT (20:13)
[2021-04-03] VITALS (8 sets, daily range): BP systolic 99–125; BP diastolic 56–64; PULSE 57–115; RESP 18–95; TEMP 36.2–37.1; O2SAT 18–98
[2021-04-03 07:20] LABS: Hematocrit 33.5 % (37.0-47.0); Hemoglobin 10.7 g/dl (12.0-16.0); Mean Corpuscular HGB Conc 31.9 g/dl (31.0-35.0); Mean Corpuscular Hemoglobin 29.6 pg (27.0-33.0); Mean Corpuscular Volume 92.5 fL (80.0-98.0); Mean Platelet Volume 12.2 fL (9.4-12.3); Platelet Count 137 X10*3/uL (160-400); Red Blood Count 3.62 X10*6/uL (4.20-5.50); Red Cell Distribution Width 13.1 % (11.0-16.0); White Blood Count 14.1 X10*3/uL (4.8-10.8)
[2021-04-03 07:58] LABS: Anion Gap 15 (12-20); Blood Urea Nitrogen 55 mg/dL (9-16); Calcium 8.6 mg/dL (8.4-10.2); Carbon Dioxide 22 mmol/L (22-29); Chloride 110 mmol/L (96-108); Creatinine Clr Calc Pharmacy 14.7; Estimated Glomerular Filt Rate 13; Glucose Random 105 mg/dL (60-115); Potassium 4.5 mmol/L (3.3-5.1); Sodium 142 mmol/L (135-145)
[2021-04-03] MEDS: Cholecalciferol (Vitamin D3) 25 MCG TABLET 50 MCG PO (09:10)
[2021-04-03] MEDS: 0.9 % Sodium Chloride Flush 3 ML SYRINGE IVFLUSH ×3 (09:11→20:42)
[2021-04-03] MEDS: dilTIAZem HCL CD 240 MG CAP.ER.DEG PO (09:11)
[2021-04-03] MEDS: Metoprolol Tartrate 25 MG TABLET PO ×3 (09:11→20:41)
[2021-04-03] MEDS: cefTRIAXone sodium 1 GM in 0.9 % Sodium Chloride 50 ML IV (09:11)
--- NOTE | 2021-04-03 11:39 | HO.PM.IMPN ---
Subjective Subjective Date of Service: 04/03/21 Interval History: the patient was seen and evaluated this morning Laying in bed, feels general improvement Heart rate better controlled today but terms to 100s on occasions Denies any fever, chills or chest pain No reported other overnight events. Review of Systems Reporting generalized weakness No chest pain, palpitation No shortness of breath or coughing No abdominal pain, nausea or vomiting Right-sided flank pain No urinary symptoms No any rash or wounds Physical Exam Vital Signs: Vital Signs: Last Vital Signs Temp 97.4 F 04/03/21 07:31 Pulse 115 H 04/03/21 07:51 Resp 18 04/03/21 07:51 BP 125/64 04/03/21 07:31 Pulse Ox 95 04/03/21 07:31 BMI result Body Mass Index 37.3 Const: Other: Constitutional : Alert, interactive, not in distress Neck : Normal inspection, Supple Cardiovascular : Irregular irregular, S1 S2, no lower extremity edema Respiratory : Fair bilateral air entry, no crackles, bilateral wheezes Gastrointestinal: soft, lax, Normal bowel sounds, Non tender Skin : Warm, Dry Neurological : Alert & oriented x3, No focal deficit Objective Data Active Medications Acetaminophen (Acetaminophen 325 Mg Tablet) 650 mg PO Q6H PRN PRN Reason: Pain, Mild (Pain Scale 1-3) Last Admin: 04/02/21 20:11 Dose: 650 mg Documented by: MIKAELA Apixaban (Apixaban 5 Mg Tablet) 5 mg PO BID [facility] Atorvastatin Calcium (Atorvastatin Calcium 10 Mg Tablet) 10 mg PO BEDTIME [facility] Last Admin: 04/02/21 20:12 Dose: 10 mg Documented by: MIKAELA Benzonatate (Benzonatate 100 Mg Capsule) 100 mg PO TID PRN PRN Reason: Cough Last Admin: 04/02/21 09:20 Dose: 100 mg Documented by: KEVIN Diltiazem HCl (Diltiazem Hcl Cd 240 Mg Cap.Er.Deg) 240 mg PO DAILY [facility]; Protocol Last Admin: 04/03/21 09:11 Dose: 240 mg Documented by: SU Ceftriaxone Sodium 1 gm/ (Sodium Chloride) 50 mls @ 100 mls/hr IV Q24H [facility] Last Infusion: 04/03/21 09:42 Dose: 0 mls/hr Documented by: SU Ipratropium [place] (Ipratropium [place] 0.5 Mg/2.5 Ml Solution) 0.5 mg INHALE RQ4H PRN PRN Reason: Wheezing Lamotrigine (Lamotrigine 25 Mg Tablet) 50 mg PO BEDTIME [facility] Last Admin: 04/02/21 20:11 Dose: 50 mg Documented by: MIKAELA Levalbuterol HCl (Levalbuterol Hcl 1.25 Mg/0.5 Ml Vial.Neb) 1.25 mg INHALE RQ6H WHILE AWAKE [facility] Last Admin: 04/03/21 07:49 Dose: 1.25 mg Documented by: NICK Metoprolol Tartrate (Metoprolol Tartrate 25 Mg Tablet) 25 mg PO TID [facility]; Protocol Last Admin: 04/03/21 09:11 Dose: 25 mg Documented by: SU Olanzapine (Olanzapine 7.5 Mg Tablet) 7.5 mg PO BEDTIME [facility] Last Admin: 04/02/21 20:11 Dose: 7.5 mg Documented by: MIKAELA Ondansetron HCl (Ondansetron Hcl 4 Mg/2 Ml Vial) 4 mg IVPUSH Q8H PRN PRN Reason: Nausea and Vomiting Pharmacy Consult (Consult Rx Vancomycin Dosing) 1 each MISCELLANE DAILY PRN PRN Reason: Consult order Sodium Chloride (0.9 % Sodium Chloride Flush 3 Ml Syringe) 3 ml IVFLUSH QSHIFT [facility] Last Admin: 04/03/21 09:11 Dose: 3 ml Documented by: SU Vitamin D (Cholecalciferol (Vitamin D3) 25 Mcg Tablet) 50 mcg PO DAILY [facility] Last Admin: 04/03/21 09:10 Dose: 50 mcg Documented by: SU Labs CBC & Chem 7: 04/03/21 06:24 04/03/21 06:24 Labs: Laboratory Results - last 24 hr 04/02/21 04/03/21 04/03/21 17:46 06:24 06:24 MCV 92.5 MCH 29.6 MCHC 31.9 RDW 13.1 Plt Count 137 L MPV 12.2 Absolute Nucleated RBC 0.000 Nucleated RBC % (auto) 0.0 Anion Gap 15 Estim Creat Clear Calc 14.7 Estimated GFR 13 Random Glucose 105 Calcium 8.6 Vancomycin Trough 13.6 Microbiology Microbiology Results: Microbiology 03/31/21 12:14 Urine Culture - Final Urine Catheterized - Straight Catheter Escherichia coli 03/31/21 10:27 Blood Culture - Final Blood - Venous Escherichia coli 03/31/21 10:10 Blood Culture - Final Blood - Venous Escherichia coli Assessment and Plan (1) Acute kidney injury (nontraumatic): Status: Acute (2) Gram-negative bacteremia: Status: Acute (3) Acute UTI: Status: Acute (4) Atrial fibrillation with RVR: Status: Acute Plan A 75 years old lady with PMH of COPD, osteopenia among others who presented to the hospital with increased weakness, chills and confusion. Sepsis Secondary E coli bacteremia Source is the urine Urine and blood culture growing E coli Continue ceftriaxone with plan to finish total of 14 days of antibiotics New onset atrial fibrillation with RVR Secondary to sepsis Echo within normal Discontinue amiodarone p.o. per Cardiology Continue Cardizem 240 CD On full-dose Lovenox Cardiology input appreciated Dmitry I on CKD stage 3 Secondary to sepsis Creatinine stable around 3.5 now, likely ATN CT ruled out any obstruction Discontinue hydration , avoid nephrotoxic medications Follow urine output Follow BMP Nephrology input appreciated Continue rest of her home medications DVT PPX Lovenox Quality Stroke Does the patient have a stroke diagnosis?: No VTE Prior VTE?: No VTE Risk Level:: Medical - moderate - high VTE Device Contraindication: Treatment Not Indicated VTE Drug Contraindication: N/A - Med Ordered
--- NOTE | 2021-04-03 11:45 | PM.PNCARD ---
Subjective Subjective Date of Service: 04/03/21 Interval history: Feeling good. Good appetite. Rate control side better. Continues to be in atrial fibrillation. Physical Exam Vital Signs: Last Vital Signs Temp 97.4 F 04/03/21 07:31 Pulse 115 H 04/03/21 07:51 Resp 18 04/03/21 07:51 BP 125/64 04/03/21 07:31 Pulse Ox 95 04/03/21 07:31 BMI result Body Mass Index 37.3 GENERAL APPEARANCE: in no acute distress, pleasant. NECK: no carotid bruit, no jugular venous distention. SKIN: no suspicious lesions, warm and dry. HEART: no murmurs, irregular rate and rhythm. LUNGS:? Lungs clear ABDOMEN: soft, nontender. EXTREMITIES: no edema. PERIPHERAL PULSES: equal. NEUROLOGIC: No gross deficits, AAO X 3 Objective Labs and Meds Result diagrams: 04/03/21 06:24 04/03/21 06:24 Lab results: Laboratory Results - last 24 hr 04/02/21 04/03/21 04/03/21 17:46 06:24 06:24 WBC 14.1 H RBC 3.62 L Hgb 10.7 L Hct 33.5 L MCV 92.5 MCH 29.6 MCHC 31.9 RDW 13.1 Plt Count 137 L MPV 12.2 Absolute Nucleated RBC 0.000 Nucleated RBC % (auto) 0.0 Sodium 142 Potassium 4.5 Chloride 110 H Carbon Dioxide 22 Anion Gap 15 BUN 55 H Creatinine 3.36 H Estim Creat Clear Calc 14.7 Estimated GFR 13 Random Glucose 105 Calcium 8.6 Vancomycin Trough 13.6 Progress Note: A&P Assessment and plan (1) PAF (paroxysmal atrial fibrillation): Status: Acute Plan 75-year-old female with urosepsis and AFib with RVR. On anticoagulation. Started on Cardizem and beta-juana with good rate control. She had calcific mitral valve disease with severe mitral annular calcification. Her LV was hyperdynamic in the setting of sepsis and echocardiography has shown high gradients across the mitral valve at a heart rate of 110 beats per minute. I think these are exaggerated due to tachycardia and probably high-flow due to sepsis. As she improves we should repeat an echocardiogram to assess the mitral valve. She is not acting like mitral stenosis and is improving at this point without any significant diuresis and has not been heart failure. Her heart rate is very well controlled right now with beta juana and Cardizem I will continue the same for now. Thank you for allowing me to participate in the care of your patient. Please feel free to contact me if you have any questions. Fall Risk Details Current Medications: Current Medications Acetaminophen (Acetaminophen 325 Mg Tablet) 650 mg PO Q6H PRN PRN Reason: Pain, Mild (Pain Scale 1-3) Last Admin: 04/02/21 20:11 Dose: 650 mg Documented by: Apixaban (Apixaban 5 Mg Tablet) 5 mg PO BID [facility]ENNEY Atorvastatin Calcium (Atorvastatin Calcium 10 Mg Tablet) 10 mg PO BEDTIME [facility]ENNEY Last Admin: 04/02/21 20:12 Dose: 10 mg Documented by: Benzonatate (Benzonatate 100 Mg Capsule) 100 mg PO TID PRN PRN Reason: Cough Last Admin: 04/02/21 09:20 Dose: 100 mg Documented by: Diltiazem HCl (Diltiazem Hcl Cd 240 Mg Cap.Er.Deg) 240 mg PO DAILY [facility]; Protocol Last Admin: 04/03/21 09:11 Dose: 240 mg Documented by: Ceftriaxone Sodium 1 gm/ (Sodium Chloride) 50 mls @ 100 mls/hr IV Q24H [facility]ENNEY Last Infusion: 04/03/21 09:42 Dose: Infused Documented by: Ipratropium [place] (Ipratropium [place] 0.5 Mg/2.5 Ml Solution) 0.5 mg INHALE RQ4H PRN PRN Reason: Wheezing Lamotrigine (Lamotrigine 25 Mg Tablet) 50 mg PO BEDTIME [facility]ENNEY Last Admin: 04/02/21 20:11 Dose: 50 mg Documented by: Levalbuterol HCl (Levalbuterol Hcl 1.25 Mg/0.5 Ml Vial.Neb) 1.25 mg INHALE RQ6H WHILE AWAKE [facility]ENNEY Last Admin: 04/03/21 07:49 Dose: 1.25 mg Documented by: Metoprolol Tartrate (Metoprolol Tartrate 25 Mg Tablet) 25 mg PO TID [facility]; Protocol Last Admin: 04/03/21 09:11 Dose: 25 mg Documented by: Olanzapine (Olanzapine 7.5 Mg Tablet) 7.5 mg PO BEDTIME KENNEY Last Admin: 04/02/21 20:11 Dose: 7.5 mg Documented by: Ondansetron HCl (Ondansetron Hcl 4 Mg/2 Ml Vial) 4 mg IVPUSH Q8H PRN PRN Reason: Nausea and Vomiting Pharmacy Consult (Consult Rx Vancomycin Dosing) 1 each MISCELLANE DAILY PRN PRN Reason: Consult order Sodium Chloride (0.9 % Sodium Chloride Flush 3 Ml Syringe) 3 ml IVFLUSH QSHIFT [facility] Last Admin: 04/03/21 09:11 Dose: 3 ml Documented by: Vitamin D (Cholecalciferol (Vitamin D3) 25 Mcg Tablet) 50 mcg PO DAILY [facility] Last Admin: 04/03/21 09:10 Dose: 50 mcg Documented by: Time Spent With Patient Time: Total time spent is greater than 50% in coordination of care (as documented) at patient's floor/unit and/or counseling patient: Time with patient: 15 - 24 minutes Progress Note: Quality Stroke Does the patient have a stroke diagnosis?: No Procedures Date of Service Date of Service: 04/03/21
--- NOTE | 2021-04-03 16:02 | PM.PNNEP ---
Subjective Subjective Date of Service: 04/03/21 Principal diagnosis: SHARON on CKD Interval history: the patient was seen and evaluated this morning Laying in bed, feels general improvement Heart rate better controlled today but terms to 100s on occasions Denies any fever, chills or chest pain No reported other overnight events. Physical Exam Vital Signs: Vital Signs: Last Vital Signs Temp 98.7 F 04/03/21 15:52 Pulse 61 04/03/21 15:52 Resp 18 04/03/21 15:52 BP 114/59 L 04/03/21 15:52 Pulse Ox 97 04/03/21 15:52 BMI result Body Mass Index 37.3 Const: General: cooperative and comfortable Resp: Effort & Inspection: normal respiratory effort and able to speak in complete sentences Auscultation: clear to auscultation bilaterally Cardio: Jugular venous distension: no JVD Heart sounds: S1 normal heart sound present and S2 normal heart sound present GI: Auscultation: normal bowel sounds Objective Data Labs CBC & Chem 7: 04/03/21 06:24 04/03/21 06:24 Labs: Laboratory Results - last 24 hr 04/02/21 04/03/21 04/03/21 17:46 06:24 06:24 WBC 14.1 H RBC 3.62 L Hgb 10.7 L Hct 33.5 L MCV 92.5 MCH 29.6 MCHC 31.9 RDW 13.1 Plt Count 137 L MPV 12.2 Absolute Nucleated RBC 0.000 Nucleated RBC % (auto) 0.0 Sodium 142 Potassium 4.5 Chloride 110 H Carbon Dioxide 22 Anion Gap 15 BUN 55 H Creatinine 3.36 H Estim Creat Clear Calc 14.7 Estimated GFR 13 Random Glucose 105 Calcium 8.6 Vancomycin Trough 13.6 Microbiology Microbiology Results: Microbiology 03/31/21 12:14 Urine Catheterized - Straight Catheter Urine Culture - Final Escherichia coli 03/31/21 10:27 Blood - Venous Blood Culture - Final Escherichia coli 03/31/21 10:10 Blood - Venous Blood Culture - Final Escherichia coli Procedures Date of Service Date of Service: 04/03/21 Assessment & Plan Assessment and plan (1) Acute kidney injury (nontraumatic): Status: Acute Plan #) SHARON on CKD: The patient has history of CKD with BL S-Cr ~ 1.3-1.5 mg/dL until 09/2020 but presented on 03/31 with S-Cr = 2.89. Her S-Cr has up-trended but finally appears to be leveling off with today's S-Cr = 3.36 mg/dL Her sharon is behaving like dense atn. COntinues to make uop. She was noted to have UA consistent with uti and subsequent urine micro is now demonstrating e.coli. HOld additional IVF's. repeat renal panel in am. CT had no evidence of hydronephrosis however there is no urine output documented. I suspect her uti is secondary to hypovolemia 03/24 uti. Avoidance of n-toxic medications such as acei/arb, contrast, nsaids, renal dosing abx. Urine studies added. no indication for MANAGER ENERGY but will follow along for clinical decompensation. Her history of Li use puts her at increased risk for progression to ESRD. Thank you for allowing me to take part in the care of this patient. Nephrology will follow along. Time Spent With Patient Time: Total time spent is greater than 50% in coordination of care (as documented) at patient's floor/unit and/or counseling patient: Time with patient: 25 - 35 minutes Progress Note: Quality Stroke Does the patient have a stroke diagnosis?: No
[2021-04-03] MEDS: Atorvastatin Calcium 10 MG TABLET PO (20:41)
[2021-04-03] MEDS: lamoTRIgine 25 MG TABLET 50 MG PO (20:41)
[2021-04-03] MEDS: OLANZapine 7.5 MG TABLET PO (20:41)
[2021-04-03] MEDS: Apixaban 5 MG TABLET PO (20:41)
[2021-04-04] VITALS (8 sets, daily range): BP systolic 108–136; BP diastolic 57–67; PULSE 60–82; RESP 18–20; TEMP 35.8–37.2; O2SAT 93–99; BMI 36.0
[2021-04-04 06:54] LABS: Anion Gap 13 (12-20); Blood Urea Nitrogen 52 mg/dL (9-16); Calcium 8.8 mg/dL (8.4-10.2); Carbon Dioxide 22 mmol/L (22-29); Chloride 110 mmol/L (96-108); Creatinine Clr Calc Pharmacy 17.5; Estimated Glomerular Filt Rate 17; Glucose Random 115 mg/dL (60-115); Potassium 4.2 mmol/L (3.3-5.1); Sodium 141 mmol/L (135-145)
[2021-04-04] MEDS: dilTIAZem HCL CD 240 MG CAP.ER.DEG PO (08:22)
[2021-04-04] MEDS: Metoprolol Tartrate 25 MG TABLET PO ×3 (08:22→21:16)
[2021-04-04] MEDS: Apixaban 5 MG TABLET PO ×2 (08:23→21:16)
[2021-04-04] MEDS: Cholecalciferol (Vitamin D3) 25 MCG TABLET 50 MCG PO (08:24)
[2021-04-04] MEDS: cefTRIAXone sodium 1 GM in 0.9 % Sodium Chloride 50 ML IV (08:26)
[2021-04-04] MEDS: 0.9 % Sodium Chloride Flush 3 ML SYRINGE IVFLUSH ×3 (08:26→21:22)
--- NOTE | 2021-04-04 09:50 | P.PNIM_ITS ---
Subjective Subjective Date of Service: 04/04/21 Interval History: the patient was seen and evaluated this morning Laying in bed, feels general improvement but not ready yet to go home as she is weaker than before upon walking Heart rate better controlled Denies any fever, chills or chest pain No reported other overnight events. Review of Systems Reporting generalized weakness No chest pain, palpitation No shortness of breath or coughing No abdominal pain, nausea or vomiting Right-sided flank pain No urinary symptoms No any rash or wounds Physical Exam Vital Signs: Vital Signs: Last Vital Signs Temp 97.3 F 04/04/21 08:00 Pulse 82 04/04/21 08:00 Resp 18 04/04/21 08:00 BP 134/58 L 04/04/21 08:00 Pulse Ox 93 04/04/21 08:00 BMI result Body Mass Index 36.0 Const: Other: Constitutional : Alert, interactive, not in distress Neck : Normal inspection, Supple Cardiovascular : Irregular irregular, S1 S2, no lower extremity edema Respiratory : Fair bilateral air entry, no crackles, bilateral wheezes Gastrointestinal: soft, lax, Normal bowel sounds, Non tender Skin : Warm, Dry Neurological : Alert & oriented x3, No focal deficit Objective Data Active Medications Acetaminophen (Acetaminophen 325 Mg Tablet) 650 mg PO Q6H PRN PRN Reason: Pain, Mild (Pain Scale 1-3) Last Admin: 04/02/21 20:11 Dose: 650 mg Documented by: MIKAELA Apixaban (Apixaban 5 Mg Tablet) 5 mg PO BID [facility] Last Admin: 04/04/21 08:23 Dose: 5 mg Documented by: SU Atorvastatin Calcium (Atorvastatin Calcium 10 Mg Tablet) 10 mg PO BEDTIME [facility] Last Admin: 04/03/21 20:41 Dose: 10 mg Documented by: MIKAELA Benzonatate (Benzonatate 100 Mg Capsule) 100 mg PO TID PRN PRN Reason: Cough Last Admin: 04/02/21 09:20 Dose: 100 mg Documented by: KEVIN Diltiazem HCl (Diltiazem Hcl Cd 240 Mg Cap.Er.Deg) 240 mg PO DAILY [facility]; Protocol Last Admin: 04/04/21 08:22 Dose: 240 mg Documented by: SU Ceftriaxone Sodium 1 gm/ (Sodium Chloride) 50 mls @ 100 mls/hr IV Q24H [facility] Last Infusion: 04/04/21 09:12 Dose: 0 mls/hr Documented by: SU Ipratropium [place] (Ipratropium [place] 0.5 Mg/2.5 Ml Solution) 0.5 mg INHALE RQ4H PRN PRN Reason: Wheezing Lamotrigine (Lamotrigine 25 Mg Tablet) 50 mg PO BEDTIME [facility] Last Admin: 04/03/21 20:41 Dose: 50 mg Documented by: MIKAELA Levalbuterol HCl (Levalbuterol Hcl 1.25 Mg/0.5 Ml Vial.Neb) 1.25 mg INHALE RQ6H WHILE AWAKE [facility] Last Admin: 04/04/21 07:37 Dose: Not Given Documented by: NICK Non-Admin Reason: Patient Refused Metoprolol Tartrate (Metoprolol Tartrate 25 Mg Tablet) 25 mg PO TID [facility]; Protocol Last Admin: 04/04/21 08:22 Dose: 25 mg Documented by: SU Olanzapine (Olanzapine 7.5 Mg Tablet) 7.5 mg PO BEDTIME [facility] Last Admin: 04/03/21 20:41 Dose: 7.5 mg Documented by: MIKAELA Ondansetron HCl (Ondansetron Hcl 4 Mg/2 Ml Vial) 4 mg IVPUSH Q8H PRN PRN Reason: Nausea and Vomiting Pharmacy Consult (Consult Rx Vancomycin Dosing) 1 each MISCELLANE DAILY PRN PRN Reason: Consult order Sodium Chloride (0.9 % Sodium Chloride Flush 3 Ml Syringe) 3 ml IVFLUSH QSHIFT [facility] Last Admin: 04/04/21 08:26 Dose: 3 ml Documented by: SU Vitamin D (Cholecalciferol (Vitamin D3) 25 Mcg Tablet) 50 mcg PO DAILY [facility] Last Admin: 04/04/21 08:24 Dose: 50 mcg Documented by: SU Labs CBC & Chem 7: 04/03/21 06:24 04/04/21 05:54 Labs: Laboratory Results - last 24 hr 04/04/21 05:54 Anion Gap 13 Estim Creat Clear Calc 17.5 Estimated GFR 17 Random Glucose 115 Calcium 8.8 Microbiology Microbiology Results: Microbiology 03/31/21 12:14 Urine Culture - Final Urine Catheterized - Straight Catheter Escherichia coli Assessment and Plan (1) PAF (paroxysmal atrial fibrillation): Status: Acute (2) Acute kidney injury (nontraumatic): Status: Acute (3) Gram-negative bacteremia: Status: Acute (4) Physical deconditioning: Status: Acute Plan A 75 years old lady with PMH of COPD, osteopenia among others who presented to the hospital with increased weakness, chills and confusion. Physical deconditioning Reported increased weakness and unsteadiness upon walking Secondary to hospital stay is To do physical therapy evaluation Sepsis, resolved Secondary E coli bacteremia Urine and blood culture growing E coli Continue ceftriaxone with plan to finish total of 14 days of antibiotics New onset atrial fibrillation with RVR, controlled Rate controlled, remains in AFib Echo within normal Discontinue amiodarone p.o. per Cardiology Continue Cardizem 240 CD Changed to Eliquis Cardiology input appreciated Dmitry I on CKD stage 3 Creatinine improving to 2.7, likely ATN CT ruled out any obstruction Discontinue hydration , avoid nephrotoxic medications Follow urine output Follow BMP Nephrology input appreciated Continue rest of her home medications DVT PPX Lovenox Quality Stroke Does the patient have a stroke diagnosis?: No VTE Prior VTE?: No VTE Risk Level:: Medical - moderate - high VTE Device Contraindication: Treatment Not Indicated VTE Drug Contraindication: N/A - Med Ordered
--- NOTE | 2021-04-04 10:53 | P.PNCA_ITS ---
Subjective Subjective Date of Service: 04/04/21 Principal diagnosis: SHARON on CKD Interval history: Patient seen examined at bedside. Feeling good. Better heart rate control. Physical Exam Vital Signs: Last Vital Signs Temp 97.3 F 04/04/21 08:00 Pulse 82 04/04/21 08:00 Resp 18 04/04/21 08:00 BP 134/58 L 04/04/21 08:00 Pulse Ox 93 04/04/21 08:00 BMI result Body Mass Index 36.0 GENERAL APPEARANCE: in no acute distress, pleasant. NECK: no carotid bruit, no jugular venous distention. SKIN: no suspicious lesions, warm and dry. HEART: no murmurs, irregular rate and rhythm. LUNGS:? Lungs clear ABDOMEN: soft, nontender. EXTREMITIES: no edema. PERIPHERAL PULSES: equal. NEUROLOGIC: No gross deficits, AAO X 3 Objective Labs and Meds Result diagrams: 04/03/21 06:24 04/04/21 05:54 Lab results: Laboratory Results - last 24 hr 04/04/21 05:54 Sodium 141 Potassium 4.2 Chloride 110 H Carbon Dioxide 22 Anion Gap 13 BUN 52 H Creatinine 2.76 H Estim Creat Clear Calc 17.5 Estimated GFR 17 Random Glucose 115 Calcium 8.8 Progress Note: A&P Assessment and plan (1) PAF (paroxysmal atrial fibrillation): Status: Acute Plan 75-year-old female with urosepsis and AFib with RVR.? On anticoagulation.? Started on Cardizem and beta-juana with good rate control.? She had calcific mitral valve disease with severe mitral annular calcification.? Her LV was hyperdynamic in the setting of sepsis and echocardiography has shown high gradients across the mitral valve at a heart rate of 110 beats per minute.? I think these are exaggerated due to tachycardia and probably high-flow due to sepsis.? As she improves we should repeat an echocardiogram to assess the mitral valve.? She is not acting like mitral stenosis and is improving at this point without any significant diuresis and has not been heart failure.? Her heart rate is very well controlled right now with beta juana and Cardizem I will continue the same for now.? Thank you for allowing me to participate in the care of your patient.? Please feel free to contact me if you have any questions. Fall Risk Details Current Medications: Current Medications Acetaminophen (Acetaminophen 325 Mg Tablet) 650 mg PO Q6H PRN PRN Reason: Pain, Mild (Pain Scale 1-3) Last Admin: 04/02/21 20:11 Dose: 650 mg Documented by: Apixaban (Apixaban 5 Mg Tablet) 5 mg PO BID [facility] Last Admin: 04/04/21 08:23 Dose: 5 mg Documented by: Atorvastatin Calcium (Atorvastatin Calcium 10 Mg Tablet) 10 mg PO BEDTIME [facility] Last Admin: 04/03/21 20:41 Dose: 10 mg Documented by: Benzonatate (Benzonatate 100 Mg Capsule) 100 mg PO TID PRN PRN Reason: Cough Last Admin: 04/02/21 09:20 Dose: 100 mg Documented by: Diltiazem HCl (Diltiazem Hcl Cd 240 Mg Cap.Er.Deg) 240 mg PO DAILY [facility]; Protocol Last Admin: 04/04/21 08:22 Dose: 240 mg Documented by: Ceftriaxone Sodium 1 gm/ (Sodium Chloride) 50 mls @ 100 mls/hr IV Q24H [facility] Last Infusion: 04/04/21 09:12 Dose: Infused Documented by: Ipratropium Alpha (Ipratropium Alpha 0.5 Mg/2.5 Ml Solution) 0.5 mg INHALE RQ4H PRN PRN Reason: Wheezing Lamotrigine (Lamotrigine 25 Mg Tablet) 50 mg PO BEDTIME [facility] Last Admin: 04/03/21 20:41 Dose: 50 mg Documented by: Levalbuterol HCl (Levalbuterol Hcl 1.25 Mg/0.5 Ml Vial.Neb) 1.25 mg INHALE RQ6H WHILE AWAKE [facility] Last Admin: 04/04/21 07:37 Dose: Not Given Documented by: Metoprolol Tartrate (Metoprolol Tartrate 25 Mg Tablet) 25 mg PO TID [facility]; Protocol Last Admin: 04/04/21 08:22 Dose: 25 mg Documented by: Olanzapine (Olanzapine 7.5 Mg Tablet) 7.5 mg PO BEDTIME [facility] Last Admin: 04/03/21 20:41 Dose: 7.5 mg Documented by: Ondansetron HCl (Ondansetron Hcl 4 Mg/2 Ml Vial) 4 mg IVPUSH Q8H PRN PRN Reason: Nausea and Vomiting Pharmacy Consult (Consult Rx Vancomycin Dosing) 1 each MISCELLANE DAILY PRN PRN Reason: Consult order Sodium Chloride (0.9 % Sodium Chloride Flush 3 Ml Syringe) 3 ml IVFLUSH QSHIFT [facility] Last Admin: 04/04/21 08:26 Dose: 3 ml Documented by: Vitamin D (Cholecalciferol (Vitamin D3) 25 Mcg Tablet) 50 mcg PO DAILY [facility] Last Admin: 04/04/21 08:24 Dose: 50 mcg Documented by: Time Spent With Patient Time: Total time spent is greater than 50% in coordination of care (as documented) at patient's floor/unit and/or counseling patient: Time with patient: 15 - 24 minutes Progress Note: Quality Stroke Does the patient have a stroke diagnosis?: No Procedures Date of Service Date of Service: 04/04/21
--- NOTE | 2021-04-04 18:51 | PM.PNNEP ---
Subjective Subjective Date of Service: 04/04/21 Principal diagnosis: SHARON on CKD Interval history: Chart Reviewed. Events noted. Denies any fever, chills or chest pain No reported other overnight events. Physical Exam Vital Signs: Vital Signs: Last Vital Signs Temp 98.9 F 04/04/21 15:36 Pulse 60 04/04/21 15:36 Resp 18 04/04/21 15:36 BP 125/65 04/04/21 15:36 Pulse Ox 98 04/04/21 15:36 BMI result Body Mass Index 36.0 Const: General: healthy appearing Neck: Neck: Yes no JVD Cardio: Jugular venous distension: no JVD Rate: regular rate Rhythm: regular rhythm GI: Auscultation: normal bowel sounds Extrem: General: Yes no clubbing, cyanosis or edema and Yes no pedal edema Objective Data Labs CBC & Chem 7: 04/03/21 06:24 04/04/21 05:54 Labs: Laboratory Results - last 24 hr 04/04/21 05:54 Sodium 141 Potassium 4.2 Chloride 110 H Carbon Dioxide 22 Anion Gap 13 BUN 52 H Creatinine 2.76 H Estim Creat Clear Calc 17.5 Estimated GFR 17 Random Glucose 115 Calcium 8.8 Microbiology Microbiology Results: Microbiology 03/31/21 12:14 Urine Catheterized - Straight Catheter Urine Culture - Final Escherichia coli 03/31/21 10:27 Blood - Venous Blood Culture - Final Escherichia coli 03/31/21 10:10 Blood - Venous Blood Culture - Final Escherichia coli Procedures Date of Service Date of Service: 04/04/21 Assessment & Plan Assessment and plan (1) Acute kidney injury: Status: Acute Plan #) SHARON on CKD: The patient has history of CKD with BL S-Cr ~ 1.3-1.5 mg/dL until 09/2020 but presented on 03/31 with S-Cr = 2.89. Her S-Cr has up-trended but finally appears to be downtrending, consistent with ATN. Renal panel daily to trend final BL. COntinues to make uop. She was noted to have UA consistent with uti and subsequent urine micro is now demonstrating e.coli. HOld additional IVF's. CT had no evidence of hydronephrosis however there is no urine output documented. I suspect her uti is secondary to hypovolemia 2/2 uti. Avoidance of n-toxic medications such as acei/arb, contrast, nsaids, renal dosing abx. Her history of Li use puts her at increased risk for progression to ESRD. Thank you for allowing me to take part in the care of this patient. Nephrology will follow along. Time Spent With Patient Time: Total time spent is greater than 50% in coordination of care (as documented) at patient's floor/unit and/or counseling patient: Time with patient: 25 - 35 minutes Progress Note: Quality Stroke Does the patient have a stroke diagnosis?: No
[2021-04-04] MEDS: OLANZapine 7.5 MG TABLET PO (21:16)
[2021-04-04] MEDS: Atorvastatin Calcium 10 MG TABLET PO (21:16)
[2021-04-04] MEDS: lamoTRIgine 25 MG TABLET 50 MG PO (21:16)
[2021-04-05 03:09] VITALS: BP 125/68; PULSE 60; RESP 19; TEMP 36.3; O2SAT 97
[2021-04-05 03:12] VITALS: BP 159/72; PULSE 74; RESP 19; TEMP 36.6; O2SAT 96
[2021-04-05 05:46] VITALS: BMI 36.7
[2021-04-05 07:37] LABS: Anion Gap 13 (12-20); Blood Urea Nitrogen 51 mg/dL (9-16); Calcium 9.2 mg/dL (8.4-10.2); Carbon Dioxide 21 mmol/L (22-29); Chloride 112 mmol/L (96-108); Creatinine Clr Calc Pharmacy 20.8; Estimated Glomerular Filt Rate 20; Glucose Random 110 mg/dL (60-115); Potassium 4.4 mmol/L (3.3-5.1); Sodium 142 mmol/L (135-145)
[2021-04-05 07:46] VITALS: PULSE 76; RESP 16; O2SAT 99
[2021-04-05 07:54] VITALS: BP 119/65; PULSE 64; RESP 20; TEMP 35.4
[2021-04-05 08:00] VITALS: BP 119/65; PULSE 69; RESP 20; TEMP 36.4; O2SAT 98
[2021-04-05] MEDS: Cholecalciferol (Vitamin D3) 25 MCG TABLET 50 MCG PO (09:10)
[2021-04-05] MEDS: dilTIAZem HCL CD 240 MG CAP.ER.DEG PO (09:13)
[2021-04-05] MEDS: Apixaban 5 MG TABLET PO (09:14)
[2021-04-05] MEDS: Metoprolol Tartrate 25 MG TABLET PO (09:14)
[2021-04-05] MEDS: cefTRIAXone sodium 1 GM in 0.9 % Sodium Chloride 50 ML IV (09:18)
[2021-04-05] MEDS: 0.9 % Sodium Chloride Flush 3 ML SYRINGE IVFLUSH (09:24)
--- NOTE | 2021-04-05 09:44 | PM.PNNEP ---
Subjective Subjective Date of Service: 04/06/21 Principal diagnosis: SHARON on CKD Interval history: Events noted Physical Exam Vital Signs: Vital Signs: Last Vital Signs Temp 97.5 F 04/05/21 08:00 Pulse 69 04/05/21 08:00 Resp 20 04/05/21 08:00 BP 119/65 04/05/21 08:00 Pulse Ox 98 04/05/21 08:00 BMI result Body Mass Index 36.7 Neck: Neck: Yes supple Resp: Auscultation: clear to auscultation bilaterally Cardio: Jugular venous distension: no JVD Palpation: no palpable S4 Heart sounds: no gallops GI: Palpation (GI): Soft to palpation Auscultation: normal bowel sounds Skin: General skin exam: dry skin Neuro: Motor exam (neuro): no asterixis Objective Data Labs CBC & Chem 7: 04/03/21 06:24 04/05/21 06:47 Labs: Laboratory Results - last 24 hr 04/05/21 06:47 Sodium 142 Potassium 4.4 Chloride 112 H Carbon Dioxide 21 L Anion Gap 13 BUN 51 H Creatinine 2.35 H Estim Creat Clear Calc 20.8 Estimated GFR 20 Random Glucose 110 Calcium 9.2 Microbiology Microbiology Results: Microbiology 03/31/21 12:14 Urine Catheterized - Straight Catheter Urine Culture - Final Escherichia coli 03/31/21 10:27 Blood - Venous Blood Culture - Final Escherichia coli 03/31/21 10:10 Blood - Venous Blood Culture - Final Escherichia coli Procedures Date of Service Date of Service: 04/05/21 Assessment & Plan Assessment and plan (1) Acute kidney injury: Status: Acute Plan #) SHARON on CKD: The patient has history of CKD with BL S-Cr ~ 1.3-1.5 mg/dL until 09/2020 but presented on 03/31 with S-Cr = 2.89. Her S-Cr has up-trended but finally appears to be downtrending, consistent with ATN. Renal panel daily to trend final BL. COntinues to make uop. She was noted to have UA consistent with uti and subsequent urine micro is now demonstrating e.coli. HOld additional IVF's. CT had no evidence of hydronephrosis however there is no urine output documented. Avoidance of n-toxic medications such as acei/arb, contrast, nsaids, renal dosing abx. Her history of Li use puts her at increased risk for progression to ESRD. Shall follow with team Time Spent With Patient Time: Total time spent is greater than 50% in coordination of care (as documented) at patient's floor/unit and/or counseling patient: Time with patient: 15 - 24 minutes Progress Note: Quality Stroke Does the patient have a stroke diagnosis?: No
--- NOTE | 2021-04-05 10:58 | PM.PNCARD ---
Subjective Subjective Date of Service: 04/05/21 Principal diagnosis: Atrial fibrillation Interval history: No cardiac symptoms to report. Feels weak. Heart rate is well controlled. Review of Systems Review of Systems Yes all other systems are reviewed and are negative Physical Exam Vital Signs: Last Vital Signs Temp 97.5 F 04/05/21 08:00 Pulse 69 04/05/21 08:00 Resp 20 04/05/21 08:00 BP 119/65 04/05/21 08:00 Pulse Ox 98 04/05/21 08:00 BMI result Body Mass Index 36.7 Const General: cooperative, comfortable, no acute distress, alert and awake Nutritional Appearance: obese Orientation/consciousness: patient oriented x3 Neck Neck: Yes trachea midline, Yes supple and Yes no JVD Resp Effort & Inspection: decreased respiratory effort Auscultation: clear to auscultation bilaterally Cardio Jugular venous distension: no JVD Rhythm: abnormal rhythm irregularly irregular Heart sounds: S1 normal heart sound present, S2 normal heart sound present, no click, no gallops and no murmurs Skin General skin exam: no rashes or lesions noted Neuro General: patient oriented x3 and no focal motor deficits Objective Labs and Meds Result diagrams: 04/03/21 06:24 04/05/21 06:47 Lab results: Laboratory Results - last 24 hr 04/05/21 06:47 Sodium 142 Potassium 4.4 Chloride 112 H Carbon Dioxide 21 L Anion Gap 13 BUN 51 H Creatinine 2.35 H Estim Creat Clear Calc 20.8 Estimated GFR 20 Random Glucose 110 Calcium 9.2 Progress Note: A&P Assessment and plan (1) Atrial fibrillation: Status: Acute Assessment and Plan: New onset rate control atrial fibrillation. Elevated rate on admission due to sepsis and infection. Currently well controlled on dual therapy with Cardizem and metoprolol. Continue the same. Continue full oral anticoagulation with Eliquis. Noted slightly slower heart rate during nighttime. Will follow-up Holter monitor as an outpatient. Also follow-up in echocardiogram to evaluate for calcific mitral stenosis as an outpatient. Continue supportive care. Will set up for follow-up in 2 weeks time Fall Risk Details Current Medications: Current Medications Acetaminophen (Acetaminophen 325 Mg Tablet) 650 mg PO Q6H PRN PRN Reason: Pain, Mild (Pain Scale 1-3) Last Admin: 04/02/21 20:11 Dose: 650 mg Documented by: Apixaban (Apixaban 5 Mg Tablet) 5 mg PO BID [facility] Last Admin: 04/05/21 09:14 Dose: 5 mg Documented by: Atorvastatin Calcium (Atorvastatin Calcium 10 Mg Tablet) 10 mg PO BEDTIME [facility] Last Admin: 04/04/21 21:16 Dose: 10 mg Documented by: Benzonatate (Benzonatate 100 Mg Capsule) 100 mg PO TID PRN PRN Reason: Cough Last Admin: 04/02/21 09:20 Dose: 100 mg Documented by: Diltiazem HCl (Diltiazem Hcl Cd 240 Mg Cap.Er.Deg) 240 mg PO DAILY [facility]; Protocol Last Admin: 04/05/21 09:13 Dose: 240 mg Documented by: Ceftriaxone Sodium 1 gm/ (Sodium Chloride) 50 mls @ 100 mls/hr IV Q24H [facility] Last Admin: 04/05/21 09:18 Dose: 100 mls/hr Documented by: Ipratropium [place] (Ipratropium [place] 0.5 Mg/2.5 Ml Solution) 0.5 mg INHALE RQ4H PRN PRN Reason: Wheezing Lamotrigine (Lamotrigine 25 Mg Tablet) 50 mg PO BEDTIME [facility] Last Admin: 04/04/21 21:16 Dose: 50 mg Documented by: Levalbuterol HCl (Levalbuterol Hcl 1.25 Mg/0.5 Ml Vial.Neb) 1.25 mg INHALE RQ6H WHILE AWAKE [facility] Last Admin: 04/05/21 07:39 Dose: 1.25 mg Documented by: Loperamide HCl (Loperamide Hcl 2 Mg Capsule) 2 mg PO Q4H PRN PRN Reason: Diarrhea Metoprolol Tartrate (Metoprolol Tartrate 25 Mg Tablet) 25 mg PO TID [facility]; Protocol Last Admin: 04/05/21 09:14 Dose: 25 mg Documented by: Olanzapine (Olanzapine 7.5 Mg Tablet) 7.5 mg PO BEDTIME [facility] Last Admin: 04/04/21 21:16 Dose: 7.5 mg Documented by: Ondansetron HCl (Ondansetron Hcl 4 Mg/2 Ml Vial) 4 mg IVPUSH Q8H PRN PRN Reason: Nausea and Vomiting Pharmacy Consult (Consult Rx Vancomycin Dosing) 1 each MISCELLANE DAILY PRN PRN Reason: Consult order Sodium Chloride (0.9 % Sodium Chloride Flush 3 Ml Syringe) 3 ml IVFLUSH QSHIFT [facility] Last Admin: 04/05/21 09:24 Dose: 3 ml Documented by: Vitamin D (Cholecalciferol (Vitamin D3) 25 Mcg Tablet) 50 mcg PO DAILY [facility] Last Admin: 04/05/21 09:10 Dose: 50 mcg Documented by: Time Spent With Patient Time: Total time spent is greater than 50% in coordination of care (as documented) at patient's floor/unit and/or counseling patient: Time with patient: 15 - 24 minutes Progress Note: Quality Stroke Does the patient have a stroke diagnosis?: No Procedures Date of Service Date of Service: 04/05/21
[2021-04-05 11:24] VITALS: BP 131/72; PULSE 65; RESP 20; TEMP 36.6; O2SAT 99
--- NOTE | 2021-04-05 11:33 | P.PNIM_ITS ---
Subjective Subjective Date of Service: 04/05/21 Interval History: the patient was seen and evaluated this morning Laying in bed, feels general improvement PT felt the patient needs rehab for physical deconditioning Heart rate better controlled Denies any fever, chills or chest pain No reported other overnight events. Review of Systems Reporting generalized weakness No chest pain, palpitation No shortness of breath or coughing No abdominal pain, nausea or vomiting Right-sided flank pain No urinary symptoms No any rash or wounds Physical Exam Vital Signs: Vital Signs: Last Vital Signs Temp 97.8 F 04/05/21 11:24 Pulse 65 04/05/21 11:24 Resp 20 04/05/21 11:24 BP 131/72 04/05/21 11:24 Pulse Ox 99 04/05/21 11:24 BMI result Body Mass Index 36.7 Const: Other: Constitutional : Alert, interactive, not in distress Neck : Normal inspection, Supple Cardiovascular : Irregular irregular, S1 S2, no lower extremity edema Respiratory : Fair bilateral air entry, no crackles, bilateral wheezes Gastrointestinal: soft, lax, Normal bowel sounds, Non tender Skin : Warm, Dry Neurological : Alert & oriented x3, No focal deficit Objective Data Active Medications Acetaminophen (Acetaminophen 325 Mg Tablet) 650 mg PO Q6H PRN PRN Reason: Pain, Mild (Pain Scale 1-3) Last Admin: 04/02/21 20:11 Dose: 650 mg Documented by: MIKAELA Apixaban (Apixaban 5 Mg Tablet) 5 mg PO BID [facility] Last Admin: 04/05/21 09:14 Dose: 5 mg Documented by: SIDNEY Atorvastatin Calcium (Atorvastatin Calcium 10 Mg Tablet) 10 mg PO BEDTIME [facility] Last Admin: 04/04/21 21:16 Dose: 10 mg Documented by: GRETCHEN Benzonatate (Benzonatate 100 Mg Capsule) 100 mg PO TID PRN PRN Reason: Cough Last Admin: 04/02/21 09:20 Dose: 100 mg Documented by: KEVIN Diltiazem HCl (Diltiazem Hcl Cd 240 Mg Cap.Er.Deg) 240 mg PO DAILY [facility]; Protocol Last Admin: 04/05/21 09:13 Dose: 240 mg Documented by: SIDNEY Ceftriaxone Sodium 1 gm/ (Sodium Chloride) 50 mls @ 100 mls/hr IV Q24H [facility] Last Admin: 04/05/21 09:18 Dose: 100 mls/hr Documented by: SIDNEY Ipratropium Paulina (Ipratropium Paulina 0.5 Mg/2.5 Ml Solution) 0.5 mg INHALE RQ4H PRN PRN Reason: Wheezing Lamotrigine (Lamotrigine 25 Mg Tablet) 50 mg PO BEDTIME [facility] Last Admin: 04/04/21 21:16 Dose: 50 mg Documented by: GRETCHEN Levalbuterol HCl (Levalbuterol Hcl 1.25 Mg/0.5 Ml Vial.Neb) 1.25 mg INHALE RQ6H WHILE AWAKE [facility] Last Admin: 04/05/21 07:39 Dose: 1.25 mg Documented by: YRIS Loperamide HCl (Loperamide Hcl 2 Mg Capsule) 2 mg PO Q4H PRN PRN Reason: Diarrhea Metoprolol Tartrate (Metoprolol Tartrate 25 Mg Tablet) 25 mg PO TID [facility]; Protocol Last Admin: 04/05/21 09:14 Dose: 25 mg Documented by: SIDNEY Olanzapine (Olanzapine 7.5 Mg Tablet) 7.5 mg PO BEDTIME [facility] Last Admin: 04/04/21 21:16 Dose: 7.5 mg Documented by: GRETCHEN Ondansetron HCl (Ondansetron Hcl 4 Mg/2 Ml Vial) 4 mg IVPUSH Q8H PRN PRN Reason: Nausea and Vomiting Pharmacy Consult (Consult Rx Vancomycin Dosing) 1 each MISCELLANE DAILY PRN PRN Reason: Consult order Sodium Chloride (0.9 % Sodium Chloride Flush 3 Ml Syringe) 3 ml IVFLUSH QSHIFT [facility] Last Admin: 04/05/21 09:24 Dose: 3 ml Documented by: SIDNEY Vitamin D (Cholecalciferol (Vitamin D3) 25 Mcg Tablet) 50 mcg PO DAILY [facility] Last Admin: 04/05/21 09:10 Dose: 50 mcg Documented by: SIDNEY Labs CBC & Chem 7: 04/03/21 06:24 04/05/21 06:47 Labs: Laboratory Results - last 24 hr 04/05/21 06:47 Anion Gap 13 Estim Creat Clear Calc 20.8 Estimated GFR 20 Random Glucose 110 Calcium 9.2 Assessment and Plan (1) Atrial fibrillation: Status: Acute (2) Acute kidney injury: Status: Acute (3) Physical deconditioning: Status: Acute (4) Gram-negative bacteremia: Status: Acute Plan A 75 years old lady with PMH of COPD, osteopenia among others who presented to the hospital with increased weakness, chills and confusion. Physical deconditioning Reported increased weakness and unsteadiness upon walking PT recommended SNF placement Sepsis, resolved Secondary E coli bacteremia Urine and blood culture growing E coli Continue ceftriaxone with plan to finish total of 14 days of antibiotics New onset atrial fibrillation with RVR, controlled Rate controlled, remains in AFib Echo within normal, to be repeated as outpatient Continue Cardizem 240 CD , metoprolol Continue Eliquis Cardiology input appreciated Dmitry I on CKD stage 3 Creatinine improving to 2.3 CT ruled out any obstruction Discontinue hydration , avoid nephrotoxic medications Follow urine output Follow BMP Nephrology input appreciated Continue rest of her home medications DVT PPX Lovenox Quality Stroke Does the patient have a stroke diagnosis?: No VTE Prior VTE?: No VTE Risk Level:: Medical - moderate - high VTE Device Contraindication: Treatment Not Indicated VTE Drug Contraindication: N/A - Med Ordered
--- NOTE | 2021-04-05 12:34 | P.DS_ITS ---
DS: Providers Provider Date of Service: 04/05/21 Date of admission: 03/31/21 16:47 Primary care physician: TRINIDAD Uribe Consults: 03/31/21 16:51 Consult to Cardiology Routine Consulting Provider: Juan Carlos Hawkins Reason for consultation: New onset atrial fibrillation RVR 04/01/21 13:20 Consult to Nephrology Routine Consulting Provider: Tyler Garcia Reason for consultation: SHARON, Sepsis DS: Diagnosis Discharge Diagnosis (1) Atrial fibrillation: Status: Acute (2) Acute kidney injury: Status: Acute (3) Physical deconditioning: Status: Acute (4) Gram-negative bacteremia: Status: Acute DS: Summary Hospital Course Hospital Course: Admission note HPI A 75 years old lady with PMH of COPD, osteopenia among others who presented to the hospital with increased weakness, chills and confusion.? The patient reports that she has been feeling weaker for the last day but things worsened this morning as she felt unable to stand up and almost falling associated with tremors and becoming more confused.? She could not tell if she had a fever or no.? Her daughter reported that she had some right flank up pain but no associated abdominal pain, nausea, vomiting, dysuria or other urinary symptoms.? ?In the emergency she was found febrile, tachycardic with new onset atrial fibrillation with RVR controlled with amiodarone after consulting Cardiology. ? Admitted to the hospital for treatment of sepsis and AFib with RVR. Hospital course The patient was admitted to the hospital with picture of sepsis associated with acute kidney injury and new onset atrial fibrillation with rapid ventricular response. Her urine and blood cultures grew E coli bacteremia and she was treated with IV antibiotic of ceftriaxone with good response. Plan to be discharged on Ceftin to finish total 14 days of antibiotics. She was evaluated by Cardiology team regarding New onset atrial fibrillation with RVR and started on amiodarone drips at required an overnight stay in the ICU. Diltiazem and metoprolol was started by Cardiology as amiodarone was weaned off. Heart rate controlled but she remained in atrial fibrillation. Echo was done showing no acute findings with ejection fraction about 50%. Received Lovenox full dose for anticoagulation then started on Eliquis. To be discharged on Cardizem XL 240 mg daily and metoprolol 50 mg XL daily. to follow up with Cardiology as outpatient to repeat the echo and for medication re conciliation. Noted to have Sharon I on CKD stage 3 at [address] of presentation[address] CT scan ruled out any obstruction. Started gentle hydration and evaluated by Nephrology team who recommended holding nephrotoxic medications as ATN is the likely reason for her kidney injury. Creatinine improved from 3.5-2.3 at time of discharge. To follow up with Nephrology as outpatient and to repeat electrolytes next week. Evaluated by physical therapy team who recommended short-term rehab stay for now. Expected length of stay less than 30 days Discharge plan Continue Ceftin for total 2 weeks of antibiotics Start Cardizem and metoprolol as prescribed for heart rate control Use Eliquis as a blood thinner to prevent strokes To repeat blood test in a week To follow up with Cardiology and Nephrology as outpatient for further evaluation Time Spent with Patient Time attestation: Total time spent providing and/or coordinating discharge services: Discharge coordination time: Greater than 30 minutes Quality: Stroke Does the patient have a stroke diagnosis?: No Physical Exam Vital Signs: Vital Signs: Last Vital Signs Temp 97.8 F 04/05/21 11:24 Pulse 65 04/05/21 11:24 Resp 20 04/05/21 11:24 BP 131/72 04/05/21 11:24 Pulse Ox 99 04/05/21 11:24 BMI result Body Mass Index 36.7 Const: Other: Constitutional : Alert, interactive, not in distress Neck : Normal inspection, Supple Cardiovascular : Irregular irregular, S1 S2, no lower extremity edema Respiratory : Fair bilateral air entry, no crackles, bilateral wheezes Gastrointestinal: soft, lax, Normal bowel sounds, Non tender Skin : Warm, Dry Neurological : Alert & oriented x3, No focal deficit DS: Data Data Completed and Pending Labs on day of discharge: Laboratory Results - last 24 hr 04/05/21 06:47 Sodium 142 Potassium 4.4 Chloride 112 H Carbon Dioxide 21 L Anion Gap 13 BUN 51 H Creatinine 2.35 H Estim Creat Clear Calc 20.8 Estimated GFR 20 Random Glucose 110 Calcium 9.2 Discharge Plan Discharge Patient Disposition: [facility] Discharge Diagnosis: E coli bacteremia Acute kidney injury New onset atrial fibrillation Referrals: yomaira bryant [Other] - 1 Week Juan Jose Ellington FNP-BC [Primary Care Provider] - 1 Week Discharge Medications: New diltiazem HCl 240 mg Capsule,Extended Release 24hr 240 mg PO DAILY 30 Days Qty: 30 0RF Protocol: Hold for SBP/HR < HOLD for SBP < : 90 HOLD for HR < : 60 Eliquis 5 mg Tablet 5 mg PO BID 30 Days Qty: 60 0RF cefuroxime axetil 500 mg tablet 500 mg PO BID 9 Days Qty: 18 0RF metoprolol succinate 50 mg tablet extended release 24 hr 50 mg PO DAILY Qty: 30 0RF Continued simvastatin 20 mg tablet 20 mg PO BEDTIME Qty: 90 1RF olanzapine 7.5 mg tablet 1 tab PO BEDTIME 0RF melatonin 10 mg Tablet 10 mg PO BEDTIME 0RF Stiolto Respimat 2.5-2.5 mcg/actuation mist 2 puff inhalation DAILY 0RF lamotrigine 25 mg tablet 50 mg PO BEDTIME 0RF cholecalciferol (vitamin D3) 50 mcg (2,000 unit) capsule 50 mcg PO DAILY 0RF albuterol sulfate [Ventolin HFA] 90 mcg/actuation HFA aerosol inhaler 2 puff inhalation Q6H PRN (Reason: Wheezing) 0RF Discharge Orders: Discharge Order (Routine); Ordered 04/05/21 Ordered By: Jabari Vergara Diet: advance to usual diet Activity on Discharge: As tolerated Stand Alone Forms: Patient Portal Discharge page Other Ambulatory Orders: Basic Metabolic Panel (Routine) Timeframe: 1 Week Facility: [facility] - Location: Laboratory Ordered By: Jabari Vergara Complete Blood Count no Diff (Routine) Timeframe: 1 Week Facility: [facility] - Location: Laboratory Ordered By: Jabari Vergara Care Plan Goals: Read below Health Concerns: Read below Plan of Treatment: Read below Assessment: You were admitted to the hospital for evaluation of weakness. Found to acute kidney injury, new onset irregular heart rhythm called atrial fibrillation and an evidence of sepsis as a result of urinary tract infection. Your blood cultures grew bacteria called E coli. you were treated with IV antibiotics, IV amiodarone and Cardizem with IV fluids. Evaluated by Cardiology and Nephrology team. Your heart rate controlled and your kidneys start to improve during the hospital stay. Continue Ceftin for total 2 weeks of antibiotics Start Cardizem and metoprolol as prescribed for heart rate control Use Eliquis as a blood thinner to prevent strokes To repeat blood test in a week To follow up with Cardiology and Nephrology as outpatient for further evaluation
--- NOTE | 2021-04-05 12:36 | MHC.CM.PN ---
pt to be dcd today at 2 to [facility]
--- NOTE | 2021-04-05 12:42 | MHC.CM.PN ---
pts daughter notifieed of dc
[2021-04-05 14:04] LABS: COVID-19 Test Negative (Negative)
== END 2021-04-05 16:45 | disposition skilled nursing facility (03) | DRG 871 ==
LOC: HO.ED 16:27 → HO.EDOVER 16:58 → HO.IMC 17:30 → HO.EDOVER 19:25 → HO.ICU 21:24 → HO.IMC 04-01 14:59
PROVIDERS: Internal Medicine Pulmonary Disease; Admitting Provider Student in an Organized Health Care Education/Training Program; Emergency Provider Emergency Medicine; PCP Nurse Practitioner Family; Visit Provider Student in an Organized Health Care Education/Training Program
DX: A41.51 Sepsis due to Escherichia coli [E. coli] (principal); G93.41 Metabolic encephalopathy; N17.0 Acute kidney failure with tubular necrosis; N39.0 Urinary tract infection, site not specified; F31.9 Bipolar disorder, unspecified; E78.5 Hyperlipidemia, unspecified; I12.9 Hypertensive chronic kidney disease with stage 1 through stage 4 chronic kidney disease, or unspecified chronic kidney disease; I48.0 Paroxysmal atrial fibrillation; N18.30 Chronic kidney disease, stage 3 unspecified; I95.9 Hypotension, unspecified; Z20.822 Contact with and (suspected) exposure to COVID-19; Z87.891 Personal history of nicotine dependence; Z88.2 Allergy status to sulfonamides; Z79.01 Long term (current) use of anticoagulants; Z79.899 Other long term (current) drug therapy
CPT/HCPCS: 36415; 71045; 74176; 80048; 80076; 80202; 81001; 81003; 82040; 82947; 83605; 83735; 84100; 84300; 85025; 85027; 85610; 87040; 87077; 87086; 87088; 87186; 87205; 87635; 93005; 93306; 94640; 96361; 96365; 96366; 96375; 97161; 97530; 99223; 99232; 99285; 99291; 99292; J0153; J0282; J0696; J1160; J1650; J1940; J2370; J2543; J3370; P9047

== ENCOUNTER 2021-04-20 10:42 | Inpatient (IN) | payer MEDICARE, MEDICAID, SELFPAY ==
--- NOTE | ~2021-04-20 | XR_ITS ---
EXAMINATION: XR CHEST CLINICAL INFORMATION: Shortness of breath and hypoxemia COMPARISON: Previous chest x-rays most recent 03/31/2021 TECHNIQUE: Frontal view of the chest was obtained. FINDINGS: The cardiac silhouette is upper normal in size.. There are postsurgical changes to the right lung. There may be pulmonary venous redistribution. There is bilateral perihilar and lower lobe airspace disease. This is new or increased from recent exam. There are new small bilateral pleural effusions. There is no pneumothorax. No acute bone abnormality. XR/XR chest 1V IMPRESSION: New bilateral perihilar and lower lobe airspace disease and small bilateral pleural effusions. Differential would include CHF and pneumonia.
--- NOTE | 2021-04-20 10:47 | ED_ITS ---
HPI - SOB/Dyspnea General Chief Complaint: Dyspnea Stated Complaint: SOB, 88% RA, 94% 4LPM FROM SNF Time Seen by Provider: 04/20/21 10:47 Source: patient, EMS and old records reviewed Mode of arrival: EMS Limitations: no limitations History of Present Illness HPI Narrative: 75 y/o female with history of COPD not on O2, HTN, hx UTI with gram negative betsey bacteremia earlier this month, CKD, bipolar disorder, rapid afib on Eliquis who presents to the ER from SNF with SOB and hypoxia. Patient reports some shortness of breath and productive cough of yellow phlegm that started a couple of days ago. She states a CXR was performed yesterday because staff was worried about PNA. On nursing rounds this morning patient was found to have increased WOB and was saturating 86% on room air. EMS was called and she was placed on 4L NC. MD elicited complaint: shortness of breath and cough Pertinent past history: COPD and sepsis Onset (ago): day(s) (2) Timing: constant Severity: moderate Exacerbating factors: lying flat Relieving factors: oxygen, rest and bronchodilators Known history of: COPD Associated symptoms: cough, wheezing, sputum production, orthopnea and chest congestion Treatment prior to arrival: oxygen Related Data Home oxygen amount: none Home Medications Medication Instructions Recorded Confirmed albuterol sulfate 90 mcg/actuation 2 puff INHALATION Q6H PRN 09/23/20 04/20/21 aerosol inhaler (Ventolin HFA) cholecalciferol (vitamin D3) 50 50 mcg PO DAILY 09/23/20 04/20/21 mcg (2,000 unit) capsule lamotrigine 25 mg tablet 50 mg PO BEDTIME tab 09/23/20 04/20/21 melatonin 10 mg tablet 10 mg PO BEDTIME 03/31/21 04/20/21 olanzapine 7.5 mg tablet 1 tab PO BEDTIME 03/31/21 04/20/21 tiotropium 2.5 mcg-olodaterol 2.5 2 puff INHALATION DAILY 03/31/21 04/20/21 mcg/actuation mist for inhalation (Stiolto Respimat) Previous Rx's Medication Instructions Recorded simvastatin 20 mg tablet 20 mg PO BEDTIME #90 tab 02/08/21 apixaban 5 mg tablet (Eliquis) 5 mg PO BID 30 Days #60 tab 04/05/21 diltiazem HCl 240 mg 240 mg PO DAILY 30 Days #30 cap 04/05/21 capsule,extended release 24 hr metoprolol succinate 50 mg 50 mg PO DAILY #30 tab 04/05/21 tablet,extended release 24 hr Allergies Allergy/AdvReac Type Severity Reaction Status Date / Time Sulfa (Sulfonamide Allergy Unknown RASH, Verified 03/31/21 20:28 Antibiotics) Anaphylaxis [SULFA (SULFONAMIDE ANTIBIOTICS)] Review of Systems Review of Systems: Constitutional: No Fever, No Chills ENT/Mouth: No sore throat, No Rhinorrhea, No Swallowing Difficulty Eyes: No Eye Pain, No Swelling, No Redness Cardiovascular: No Chest Pain, + SOB, + Orthopnea, + Edema Respiratory: + Cough, + Sputum, + Wheezing, + dyspnea Gastrointestinal: No Nausea, No Vomiting, No Diarrhea, No abdominal Pain, No Hematochezia, No Melena Genitourinary: No Dysuria, No Urinary Frequency, No Hematuria Musculoskeletal: No joint pain, No Myalgias Skin: No Skin Lesions, No rash Neuro: + Weakness, No Numbness, No Dizziness, No Headache Psych: No Anxiety/Panic, No Depression Heme/Lymph: No Bruising, No Lymphadenopathy Endocrine: No Polyuria, No Polydipsia PMFSH Past Medical History Medical History (Updated 04/20/21 @ 12:46 by AFRICA Crawford) Atrial fibrillation Bipolar 1 disorder COPD (chronic obstructive pulmonary disease) Dyslipidemia HTN (hypertension) Kidney disease Leukocytosis [place] nephropathy Necrotizing granulomatous inflammation of lung Sarcoidosis Vitamin D deficiency Family History Family History Child No Financial Resp No problems noted. Family/Other Substance use disorder Social History Social History Household Members: None Household Members Other:: daughter lives downstairs. Housing: House Do you presently have visiting nurse or other home services: No Patient Tobacco Use Status: Former Tobacco user Quit Date: 02/20/13 Years Smoked: 50 Second Hand Smoke Exposure: No Advance Directives: No Advance Directives Information Provided: No Advance Directives Date on File: 04/01/21 service: No Current occupational status: retired Current occupational exposures/hazards: No Physical Exam Vital Signs: Vital Signs: Last Vital Signs Temp 98.4 F 04/20/21 10:50 Pulse 85 04/20/21 11:53 Resp 33 H 04/20/21 11:53 BP 130/58 L 04/20/21 11:53 Pulse Ox 92 04/20/21 11:53 BMI result Body Mass Index 36.3 Appearance: Alert. Oriented X3. No acute distress. Eyes: Pupils equal, round and reactive to light. ENT: Pharynx normal. Neck: Normal inspection. Neck supple. CVS: Normal heart rate and rhythm. Pulses normal. Respiratory: No respiratory distress. Breath sounds with diffuse expiratory wheezes throughout. Abdomen: Soft and nontender. +BS x4 Skin: Skin warm and dry. Normal skin color. Normal skin turgor. No rashes. Extremities: 2+ lower extremity edema. Neuro: Oriented X 3. No motor deficit. No sensory deficit. Course Course Course Narrative: 75-year-old female with a history of COPD, CKD 3, osteopenia, recent admission to [facility] earlier this month for severe sepsis secondary to UTI, rapid atrial fibrillation requiring amiodarone infusion who presents to the ER from [facility] with shortness of breath, hypoxia and difficulty breathing that started 2 days ago. On arrival she is saturating 91% on RA and is in no distress, diffuse wheezing throughout bilateral lungs. Chronic LE edema per patient without acute worsening, she reports worsening SOB with laying flat. Will give IV solumedrol 125, 10 mg albuterol neb, check CXR and labs including BNP. She is hemodynamically stable in sinus rhythm. Reevaluation(s) Reevaluation #1: CXR with bilateral perihilar and lower lobe airspace disease - possible CHF vs PNA. BNP 600s which is up from her prior. She has a productive cough and wheezing. Her symptoms are most likely a combination of acute CHF and COPD exacerbations. Given her recent hospitalization will treat for HCAP. Will also given 60 mg IV lasix. She remains stable on 2L NC with SpO2 92%. She is feeling better after neb and steroids. Will plan for admission. Patient is agreeable with plan. MDM - SOB/Dyspnea Medical Records Attestation: I reviewed the patient's medical records. Lab Data Attestation: I reviewed the patient's lab results. Result diagrams: 04/20/21 11:15 04/20/21 11:15 Labs: Lab Results 04/20/21 04/20/21 04/20/21 Range/Units 11:15 11:15 11:15 WBC 12.2 H (4.8-10.8) X10*3/uL RBC 3.26 L (4.20-5.50) X10*6/uL Hgb 9.7 L (12.0-16.0) g/dl Hct 31.1 L (37.0-47.0) % MCV 95.4 (80.0-98.0) fL MCH 29.8 (27.0-33.0) pg MCHC 31.2 (31.0-35.0) g/dl RDW 13.9 (11.0-16.0) % Plt Count 278 (160-400) X10*3/uL MPV 10.3 (9.4-12.3) fL Immature Gran % (Auto) 0.4 (0.0-0.4) % Neut % (Auto) 75.1 H (45-73) % Lymph % (Auto) 12.1 L (20-40) % [place] % (Auto) 6.6 (2-11) % Eos % (Auto) 5.2 H (0-4) % Baso % (Auto) 0.6 (0-2) % Lymph # (Auto) 1.5 (1.2-4.9) X10*3/uL [place] # (Auto) 0.8 (0.1-1.2) X10*3/uL Eos # (Auto) 0.6 H (0.0-0.4) X10*3/uL Baso # (Auto) 0.1 (0.0-0.2) X10*3/uL Abs Immat Gran (auto) 0.05 H (0.00-0.03) X10*3/uL Absolute Neuts (auto) 9.2 H (2.0-8.3) x10*3/uL Absolute Nucleated RBC 0.000 (0.0-0.012) X10*3/uL Nucleated RBC % (auto) 0.0 (0.0-0.2) /100WBC Sodium 144 (135-145) mmol/L Potassium 4.6 (3.3-5.1) mmol/L Chloride 106 (96-108) mmol/L Carbon Dioxide 30 H (22-29) mmol/L Anion Gap 13 (12-20) BUN 26 H (9-16) mg/dL Creatinine 1.62 H (0.5-1.4) mg/dL Estim Creat Clear Calc 30.1 Estimated GFR 31 Random Glucose 129 H (60-115) mg/dL Lactic Acid 0.8 (0.5-2.0) mmol/L Calcium 9.5 (8.4-10.2) mg/dL Magnesium 2.1 (1.6-2.6) mg/dL Total Bilirubin 0.9 (0.0-1.0) mg/dL Direct Bilirubin 0.3 (0.0-0.5) mg/dL AST 9 (5-31) U/L ALT 14 (0-31) U/L Alkaline Phosphatase 65 (39-117) U/L Troponin I High Sens (<3.5-17.0) ng/L B-Natriuretic Peptide (<100) pg/mL Total Protein 6.2 L D (6.5-8.0) g/dL Albumin 3.6 D (3.5-5.0) g/dL Procalcitonin ng/mL COVID-19 (KARTHIK) (Negative) COVID-19 Clin Com Influenza Type A (FELIX) (Negative) Influenza Type B (FELIX) (Negative) Influenza A & B Note 04/20/21 04/20/21 04/20/21 Range/Units 11:15 11:15 11:15 WBC (4.8-10.8) X10*3/uL RBC (4.20-5.50) X10*6/uL Hgb (12.0-16.0) g/dl Hct (37.0-47.0) % MCV (80.0-98.0) fL MCH (27.0-33.0) pg MCHC (31.0-35.0) g/dl RDW (11.0-16.0) % Plt Count (160-400) X10*3/uL MPV (9.4-12.3) fL Immature Gran % (Auto) (0.0-0.4) % Neut % (Auto) (45-73) % Lymph % (Auto) (20-40) % [place] % (Auto) (2-11) % Eos % (Auto) (0-4) % Baso % (Auto) (0-2) % Lymph # (Auto) (1.2-4.9) X10*3/uL [place] # (Auto) (0.1-1.2) X10*3/uL Eos # (Auto) (0.0-0.4) X10*3/uL Baso # (Auto) (0.0-0.2) X10*3/uL Abs Immat Gran (auto) (0.00-0.03) X10*3/uL Absolute Neuts (auto) (2.0-8.3) x10*3/uL Absolute Nucleated RBC (0.0-0.012) X10*3/uL Nucleated RBC % (auto) (0.0-0.2) /100WBC Sodium (135-145) mmol/L Potassium (3.3-5.1) mmol/L Chloride (96-108) mmol/L Carbon Dioxide (22-29) mmol/L Anion Gap (12-20) BUN (9-16) mg/dL Creatinine (0.5-1.4) mg/dL Estim Creat Clear Calc Estimated GFR Random Glucose (60-115) mg/dL Lactic Acid (0.5-2.0) mmol/L Calcium (8.4-10.2) mg/dL Magnesium (1.6-2.6) mg/dL Total Bilirubin (0.0-1.0) mg/dL Direct Bilirubin (0.0-0.5) mg/dL AST (5-31) U/L ALT (0-31) U/L Alkaline Phosphatase (39-117) U/L Troponin I High Sens 16.4 (<3.5-17.0) ng/L B-Natriuretic Peptide 673 H (<100) pg/mL Total Protein (6.5-8.0) g/dL Albumin (3.5-5.0) g/dL Procalcitonin 0.17 ng/mL COVID-19 (KARTHIK) Negative (Negative) COVID-19 Clin Com See Note Influenza Type A (FELIX) (Negative) Influenza Type B (FELIX) (Negative) Influenza A & B Note 04/20/21 Range/Units 11:21 WBC (4.8-10.8) X10*3/uL RBC (4.20-5.50) X10*6/uL Hgb (12.0-16.0) g/dl Hct (37.0-47.0) % MCV (80.0-98.0) fL MCH (27.0-33.0) pg MCHC (31.0-35.0) g/dl RDW (11.0-16.0) % Plt Count (160-400) X10*3/uL MPV (9.4-12.3) fL Immature Gran % (Auto) (0.0-0.4) % Neut % (Auto) (45-73) % Lymph % (Auto) (20-40) % [place] % (Auto) (2-11) % Eos % (Auto) (0-4) % Baso % (Auto) (0-2) % Lymph # (Auto) (1.2-4.9) X10*3/uL [place] # (Auto) (0.1-1.2) X10*3/uL Eos # (Auto) (0.0-0.4) X10*3/uL Baso # (Auto) (0.0-0.2) X10*3/uL Abs Immat Gran (auto) (0.00-0.03) X10*3/uL Absolute Neuts (auto) (2.0-8.3) x10*3/uL Absolute Nucleated RBC (0.0-0.012) X10*3/uL Nucleated RBC % (auto) (0.0-0.2) /100WBC Sodium (135-145) mmol/L Potassium (3.3-5.1) mmol/L Chloride (96-108) mmol/L Carbon Dioxide (22-29) mmol/L Anion Gap (12-20) BUN (9-16) mg/dL Creatinine (0.5-1.4) mg/dL Estim Creat Clear Calc Estimated GFR Random Glucose (60-115) mg/dL Lactic Acid (0.5-2.0) mmol/L Calcium (8.4-10.2) mg/dL Magnesium (1.6-2.6) mg/dL Total Bilirubin (0.0-1.0) mg/dL Direct Bilirubin (0.0-0.5) mg/dL AST (5-31) U/L ALT (0-31) U/L Alkaline Phosphatase (39-117) U/L Troponin I High Sens (<3.5-17.0) ng/L B-Natriuretic Peptide (<100) pg/mL Total Protein (6.5-8.0) g/dL Albumin (3.5-5.0) g/dL Procalcitonin ng/mL COVID-19 (KARTHIK) (Negative) COVID-19 Clin Com Influenza Type A (FELIX) Negative (Negative) Influenza Type B (FELIX) Negative (Negative) Influenza A & B Note See Note ECG Data Attestation: I personally reviewed and interpreted this ECG as follows: ECG interpretation date: 04/20/21 ECG interpretation time: 11:32 Prior ECG tracings: available for review Interpretation: Normal sinus rhythm, heart rate 70 beats per minute, normal [place] interval, mild artifact present. No ST segment elevations or depressions. Critical Care Time Critical Care Time Critical Care Time: Yes Total Critical Care Time: 40 Attestation: I have personally provided critical care time exclusive of time spent on separately billable procedures. Time includes review of lab data, radiology results, discussion with consultants, and monitoring for potential decompensati on. Intervention performed as documented. Discharge Plan Discharge Clinical Impression: Acute exacerbation of chronic obstructive airways disease, Acute respiratory failure with hypoxia, Bilateral pleural effusion, Acute CHF (congestive heart failure) Patient Disposition: Admitted As Inpatient
[2021-04-20 10:50] VITALS: BP 132/54; BP 136/70; PULSE 70; PULSE 71; RESP 24; TEMP 36.9; O2SAT 87; O2SAT 91; BMI 36.3
--- NOTE | 2021-04-20 10:52 | ECG_ITS ---
Test Reason : CHEST PAIN Blood Pressure : / mmHG Vent. Rate : 078 BPM Atrial Rate : 078 BPM P-R Int : 172 ms QRS Dur : 074 ms QT Int : 396 ms P-R-T Axes : 060 069 053 degrees QTc Int : 451 ms Normal sinus rhythm Normal ECG When compared with ECG of 31-MAR-2021 10:46, Sinus rhythm has replaced Atrial fibrillation Vent. rate has decreased BY [address] no longer depressed in Inferior leads ST no longer depressed in Anterolateral leads Referred By: María Joshi Electronically Signed By:Juan Carlos Hawkins
--- NOTE | 2021-04-20 10:59 | PHA.MEDREC ---
Pharmacy Consult ? Medication Reconciliation Pharmacy has completed the medication reconciliation. Patient came from [facility] with a medicaiton list. Josette Carolina, GoD
[2021-04-20] MEDS: Albuterol Sulfate (0.083%) 2.5 MG/3 ML VIAL.NEB 10 MG INHALE (11:11)
[2021-04-20 11:12] VITALS: PULSE 72; RESP 31; O2SAT 97
[2021-04-20 11:25] LABS: MANUAL DIFF FLAG NO
[2021-04-20 11:26] LABS: Basophils Absolute Auto 0.1 X10*3/uL (0.0-0.2); Basophils Percent Auto 0.6 % (0-2); Eosinophils Absolute Auto 0.6 X10*3/uL (0.0-0.4); Eosinophils Percent Auto 5.2 % (0-4); Hematocrit 31.1 % (37.0-47.0); Hemoglobin 9.7 g/dl (12.0-16.0); Imm Gran Abs Auto 0.05 X10*3/uL (0.00-0.03); Imm Gran Pct Auto 0.4 % (0.0-0.4); Lymphocytes Absolute Auto 1.5 X10*3/uL (1.2-4.9); Lymphocytes Percent Auto 12.1 % (20-40); Mean Corpuscular HGB Conc 31.2 g/dl (31.0-35.0); Mean Corpuscular Hemoglobin 29.8 pg (27.0-33.0); Mean Corpuscular Volume 95.4 fL (80.0-98.0); Mean Platelet Volume 10.3 fL (9.4-12.3); Monocytes Absolute Auto 0.8 X10*3/uL (0.1-1.2); Monocytes Percent Auto 6.6 % (2-11); Neutrophils Absolute Auto 9.2 x10*3/uL (2.0-8.3); Neutrophils Percent Auto 75.1 % (45-73); Platelet Count 278 X10*3/uL (160-400); Red Blood Count 3.26 X10*6/uL (4.20-5.50); Red Cell Distribution Width 13.9 % (11.0-16.0); White Blood Count 12.2 X10*3/uL (4.8-10.8)
[2021-04-20] MEDS: methylPREDNISolone Sod Succ 125 MG/2 ML VIAL IVPUSH (11:26)
[2021-04-20 11:38] LABS: Lactic Acid 0.8 mmol/L (0.5-2.0)
[2021-04-20 11:42] LABS: COVID-19 Test Negative (Negative)
[2021-04-20 11:44] LABS: Alanine Aminotransferase 14 U/L (0-31); Albumin Level 3.6 g/dL (3.5-5.0); Alkaline Phosphatase 65 U/L (39-117); Anion Gap 13 (12-20); Aspartate Amino Transferase 9 U/L (5-31); Bilirubin Direct 0.3 mg/dL (0.0-0.5); Bilirubin Total 0.9 mg/dL (0.0-1.0); Blood Urea Nitrogen 26 mg/dL (9-16); Calcium 9.5 mg/dL (8.4-10.2); Carbon Dioxide 30 mmol/L (22-29); Chloride 106 mmol/L (96-108); Creatinine Clr Calc Pharmacy 30.1; Estimated Glomerular Filt Rate 31; Glucose Random 129 mg/dL (60-115); Magnesium 2.1 mg/dL (1.6-2.6); Potassium 4.6 mmol/L (3.3-5.1); Sodium 144 mmol/L (135-145); Total Protein 6.2 g/dL (6.5-8.0)
[2021-04-20 11:47] LABS: B Type Natriuretic Peptide 673 pg/mL (<100); Troponin-I High Sensitivity 16.4 ng/L (<3.5-17.0)
[2021-04-20 11:48] LABS: Influenza A Negative (Negative); Influenza B2 Negative (Negative)
[2021-04-20 11:53] VITALS: BP 130/58; PULSE 85; RESP 33; O2SAT 92
[2021-04-20 12:00] LABS: Procalcitonin 0.17 ng/mL
[2021-04-20] MEDS: Furosemide 100 MG/10 ML VIAL 60 MG IVPUSH (12:32)
[2021-04-20] MEDS: cefEPime HCl 2 GM in 0.9 % Sodium Chloride 50 ML IV (12:42)
[2021-04-20] MEDS: vancomycin HCL 1,500 MG in 0.9 % Sodium Chloride 500 ML 333.33 MG IV (13:30)
--- NOTE | 2021-04-20 14:56 | PM.IMHP ---
History of Present Illness Date of Service: 04/20/21 Chief Complaint: SOB and edema A 75 years old lady with PMH of COPD, osteopenia among others who presented to the hospital with increased?SOB and LE edema over the last week. she report doing fairly ok at the SNF facility after being discharged 2 weeks ago from the hospital for Afib rvr and SHARON. Reports she started physical therapy for we then for the last the she noticed increase of difficulty breathing and shortness of breath up to the last 3 days were she was placed on 2 L of oxygen all the time at facility. Her symptom associated with feeling weakness and tired but denies any chest pain, palpitation, fever or chills, change in bowel habit or urinary symptoms. In the emergency an x-ray was concerning for bilateral pleural effusions and possible infiltrates. Admitted for further evaluation and treatment. Review of Systems Review of Systems: No fever, chills but reports generalized weakness No chest pain, palpitation but has bilateral edema Increase shortness of breath, dyspnea on exertion and dry cough No abdominal pain, nausea or vomiting No urinary symptoms No any rash or wounds [facility] Medical History Atrial fibrillation Bipolar 1 disorder COPD (chronic obstructive pulmonary disease) Dyslipidemia HTN (hypertension) Kidney disease Leukocytosis [place] nephropathy Necrotizing granulomatous inflammation of lung Sarcoidosis Vitamin D deficiency Family History Child No Financial Resp No problems noted. Family/Other Substance use disorder Social History Household Members: None Household Members Other:: daughter lives downstairs. Housing: House Do you presently have visiting nurse or other home services: No Patient Tobacco Use Status: Former Tobacco user Quit Date: 02/20/13 Years Smoked: 50 Second Hand Smoke Exposure: No Advance Directives: No Advance Directives Information Provided: No Advance Directives Date on File: 04/01/21 service: No Current occupational status: retired Current occupational exposures/hazards: No Meds Allergies Allergy/AdvReac Type Severity Reaction Status Date / Time Sulfa (Sulfonamide Allergy Unknown RASH, Verified 03/31/21 20:28 Antibiotics) Anaphylaxis [SULFA (SULFONAMIDE ANTIBIOTICS)] Active Medications: Current Medications Pharmacy Consult (Consult Rx Perform Med Rec) 1 each MISCELLANE ONCE PRN PRN Reason: Consult order Pharmacy Consult (Consult Rx Vancomycin Dosing) 1 each MISCELLANE DAILY PRN PRN Reason: Consult order Home Medications Medication Instructions Recorded Confirmed Last Taken Type albuterol sulfate 90 mcg/actuation 2 puff INHALATION Q6H PRN 09/23/20 04/20/21 03/30/21 History aerosol inhaler (Ventolin HFA) cholecalciferol (vitamin D3) 50 50 mcg PO DAILY 09/23/20 04/20/21 03/30/21 History mcg (2,000 unit) capsule lamotrigine 25 mg tablet 50 mg PO BEDTIME tab 09/23/20 04/20/21 03/30/21 History melatonin 10 mg tablet 10 mg PO BEDTIME 03/31/21 04/20/21 03/30/21 History olanzapine 7.5 mg tablet 1 tab PO BEDTIME 03/31/21 04/20/21 03/30/21 History tiotropium 2.5 mcg-olodaterol 2.5 2 puff INHALATION DAILY 03/31/21 04/20/21 03/30/21 History mcg/actuation mist for inhalation (Stiolto Respimat) Physical Exam Vital Signs and Narrative: Vital Signs: Last Vital Signs Temp 98.4 F 04/20/21 10:50 Pulse 85 04/20/21 11:53 Resp 33 H 04/20/21 11:53 BP 130/58 L 04/20/21 11:53 Pulse Ox 92 04/20/21 11:53 BMI result Body Mass Index 36.3 Const: Other: Constitutional : Alert, oriented, in mild respiratory distress Neck : Normal inspection, Supple Cardiovascular : RRR, S1 S2, +1 bilateral lower extremity edema Respiratory : Decreased bilateral air entry, basal bilateral crackles, mild scattered expiratory wheezes Gastrointestinal: soft, lax, Normal bowel sounds, Non tender Skin : Warm, Dry Neurological : Alert & oriented x3, No focal deficit Results Labs CBC and Chem 7: 04/20/21 11:15 04/20/21 11:15 Labs: Laboratory Results - last 24 hr 04/20/21 04/20/21 04/20/21 11:15 11:15 11:15 MCV 95.4 MCH 29.8 MCHC 31.2 RDW 13.9 Plt Count 278 MPV 10.3 Immature Gran % (Auto) 0.4 Neut % (Auto) 75.1 H Lymph % (Auto) 12.1 L [place] % (Auto) 6.6 Eos % (Auto) 5.2 H Baso % (Auto) 0.6 Lymph # (Auto) 1.5 [place] # (Auto) 0.8 Eos # (Auto) 0.6 H Baso # (Auto) 0.1 Abs Immat Gran (auto) 0.05 H Absolute Neuts (auto) 9.2 H Absolute Nucleated RBC 0.000 Nucleated RBC % (auto) 0.0 Anion Gap 13 Estim Creat Clear Calc 30.1 Estimated GFR 31 Random Glucose 129 H Lactic Acid 0.8 Calcium 9.5 Magnesium 2.1 Total Bilirubin 0.9 Direct Bilirubin 0.3 AST 9 ALT 14 Alkaline Phosphatase 65 B-Natriuretic Peptide Total Protein 6.2 L D Albumin 3.6 D Procalcitonin COVID-19 (KARTHIK) COVID-19 Clin Com Influenza Type A (FELIX) Influenza Type B (FELIX) Influenza A & B Note 04/20/21 04/20/21 04/20/21 11:15 11:15 11:15 MCV MCH MCHC RDW Plt Count MPV Immature Gran % (Auto) Neut % (Auto) Lymph % (Auto) [place] % (Auto) Eos % (Auto) Baso % (Auto) Lymph # (Auto) [place] # (Auto) Eos # (Auto) Baso # (Auto) Abs Immat Gran (auto) Absolute Neuts (auto) Absolute Nucleated RBC Nucleated RBC % (auto) Anion Gap Estim Creat Clear Calc Estimated GFR Random Glucose Lactic Acid Calcium Magnesium Total Bilirubin Direct Bilirubin AST ALT Alkaline Phosphatase B-Natriuretic Peptide 673 H Total Protein Albumin Procalcitonin 0.17 COVID-19 (KARTHIK) Negative COVID-19 Clin Com See Note Influenza Type A (FELIX) Influenza Type B (FELIX) Influenza A & B Note 04/20/21 11:21 MCV MCH MCHC RDW Plt Count MPV Immature Gran % (Auto) Neut % (Auto) Lymph % (Auto) [place] % (Auto) Eos % (Auto) Baso % (Auto) Lymph # (Auto) [place] # (Auto) Eos # (Auto) Baso # (Auto) Abs Immat Gran (auto) Absolute Neuts (auto) Absolute Nucleated RBC Nucleated RBC % (auto) Anion Gap Estim Creat Clear Calc Estimated GFR Random Glucose Lactic Acid Calcium Magnesium Total Bilirubin Direct Bilirubin AST ALT Alkaline Phosphatase B-Natriuretic Peptide Total Protein Albumin Procalcitonin COVID-19 (KARTHIK) COVID-19 Clin Com Influenza Type A (FELIX) Negative Influenza Type B (FELIX) Negative Influenza A & B Note See Note Imaging Radiologist's Impressions: Impressions Chest X-Ray 04/20/21 12:05 IMPRESSION: New bilateral perihilar and lower lobe airspace disease and small bilateral pleural effusions. Differential would include CHF and pneumonia. Assessment and Plan (1) Acute exacerbation of chronic obstructive airways disease: Status: Acute (2) Acute respiratory failure with hypoxia: Status: Acute (3) Bilateral pleural effusion: Status: Acute (4) Acute CHF (congestive heart failure): Status: Acute (5) Pneumonia: Status: Acute Plan A 75 years old lady with PMH of COPD, osteopenia among others who presented to the hospital with increased?SOB and LE edema over the last week. Acute hypoxic respiratory failure Secondary to diastolic CHF exacerbation and pneumonia CXR showing pleural effusion and fluid overload Titrate Oxygen supplement, Start Lasix Monitor BNP Get cardiology consult Pneumonia Cultures pending Start azithromycin and ceftriaxone Likely atelectasis from the pleural effusion Use incentive spirometry COPD exacerbation Bilateral wheezing Start steroids and nebulizers Atrial fibrillation continue Eliquis, metoprolol and Cardizem CKD stage 3 Follow BMP on urine output Continue the rest of her home medications DVT PPX Eliquis Quality Stroke Does the patient have a stroke diagnosis?: No VTE Prior VTE?: No VTE Risk Level:: Medical - moderate - high VTE Device Contraindication: Treatment Not Indicated VTE Drug Contraindication: N/A - Med Ordered
[2021-04-20 15:21] VITALS: BP 138/66; PULSE 95; RESP 24; TEMP 37.6; O2SAT 96
[2021-04-20 15:32] LABS: Appearance Urine CLEAR; Color Urine STRAW; Glucose Urine UA NEG (NEG); Leukocyte Esterase Urine NEG (NEG); Nitrite Urine NEG (NEG); Specific Gravity - Urine <= 1.005 (1.005-1.025); Urine Blood NEG (NEG); Urine Ketones NEG (NEG); Urine Protein NEG (NEG-TRACE)
--- NOTE | 2021-04-20 22:25 | PC.NURSE ---
Called for report. On hold for 5 minutes. Will try back.
[2021-04-20] MEDS: Apixaban 5 MG TABLET PO (22:36)
[2021-04-20] MEDS: lamoTRIgine 25 MG TABLET 50 MG PO (22:36)
[2021-04-20] MEDS: Azithromycin 500 MG in 0.9 % Sodium Chloride 250 ML 125 MG IV (23:07)
[2021-04-20] MEDS: OLANZapine 7.5 MG TABLET PO (23:07)
[2021-04-20 23:38] VITALS: BP 146/67; PULSE 80; RESP 19; TEMP 37.3; O2SAT 96
[2021-04-21] VITALS (9 sets, daily range): BP systolic 120–143; BP diastolic 60–69; PULSE 67–110; RESP 16–19; TEMP 36.2–37; O2SAT 90–97
[2021-04-21] MEDS: Benzonatate 100 MG CAPSULE PO (03:19)
[2021-04-21 06:48] LABS: Hematocrit 30.4 % (37.0-47.0); Hemoglobin 9.2 g/dl (12.0-16.0); Mean Corpuscular HGB Conc 30.3 g/dl (31.0-35.0); Mean Corpuscular Hemoglobin 28.9 pg (27.0-33.0); Mean Corpuscular Volume 95.6 fL (80.0-98.0); Mean Platelet Volume 10.6 fL (9.4-12.3); Platelet Count 276 X10*3/uL (160-400); Red Blood Count 3.18 X10*6/uL (4.20-5.50); Red Cell Distribution Width 13.6 % (11.0-16.0); White Blood Count 11.3 X10*3/uL (4.8-10.8)
[2021-04-21 07:05] LABS: Anion Gap 15 (12-20); Blood Urea Nitrogen 33 mg/dL (9-16); Calcium 9.5 mg/dL (8.4-10.2); Carbon Dioxide 30 mmol/L (22-29); Chloride 104 mmol/L (96-108); Creatinine Clr Calc Pharmacy 31.9; Estimated Glomerular Filt Rate 33; Glucose Random 139 mg/dL (60-115); Potassium 4.7 mmol/L (3.3-5.1); Sodium 144 mmol/L (135-145)
[2021-04-21 07:09] LABS: B Type Natriuretic Peptide 878 pg/mL (<100)
[2021-04-21] MEDS: Albuterol/Iprat 2.5/0.5MG 3 ML AMPUL.NEB INHALE ×3 (07:24→19:56)
--- NOTE | 2021-04-21 08:49 | MHC.CM.PN ---
CM met with Patient at bedside and addressed IMM with her, providing her with the original and placing a copy on the chart. The goal for dc is to return to [facility]; CM has initiated and will follow for dc planning. Patient typically lives alone on the second floor of a 2 family house with her Daughter/HCP/Shelli living on the first floor. Patient has received Moderna Covid Vax X3 and PCP is Dr.John Ellington.
--- NOTE | 2021-04-21 10:00 | CA_ITS ---
Transthoracic Echocardiogram Patient (Last, First, Middle): Nikki Borjas J Gender: Female Date of : 1945 Age: 75 Procedure Date: 04/21/2021 Procedure Type: Transthoracic Echocardiogram Location[place] [facility] [place] Height: 154.94 cm Weight: 87.09 kg BSA: 1.86 m2 Heart Rate: bpm BP: 137 / 63 mmHg Basket Hand Weaver: VH Referring MD: Suad Aguilera [employer] LABORERCorinnaC Symptoms: new CHF, mitral stenosis Study Quality: Good ECG Rhythm: Sinus Conclusions: - Limited echo for assessment of mitral valve. - High gradients are noted across the MV with planimetry area not in the severe range. Likely moderate to severe MS. We will arrange JOHNNY to assess this further. - Normal biventricular function. Findings Left Ventricle Normal left ventricular cavity size. There is moderately increased left ventricular wall thickness. The left ventricular systolic function is hyperdynamic. The visually estimated ejection fraction is between 65-70%. Diastolic function is indeterminate on the basis of available data. Right Ventricle Normal right ventricular cavity size and systolic function. Mitral Valve The posterior mitral leaflet has restricted mobility. There is severe mitral annular calcification. There is mild mitral valve regurgitation. There is moderate to severe mitral valve stenosis. There is mean gradient across mitral valve of 15 mm Hg at HR 75 beats/min. By pressure half time the MV area is 1.6 cm2. By planimetry valve area is 2.32 cm2. High gradient across the valve but planimetry area does not clearly correlate with it. Pulmonic Valve The pulmonic valve is likely normal. Tricuspid Valve Normal tricuspid valve structure. There is mild tricuspid valve regurgitation. Normal right atrial pressure. There is no evidence of pulmonary hypertension. Great Vessels All visible segments of the aorta are normal in size. The pulmonary artery was not well visualized. Venous The inferior vena cava is normal in size and collapses greater than 50% with inspiration. Pericardium/Pleural There is no evidence of pericardial effusion. Measurements 2D Linear Measurements IVSd: 1.28 0.6-0.9/0.6-1.0 cm LVIDd: 3.96 3.9-5.3/4.2-5.9 cm LVIDd Index: 2.13 2.4-3.2/2.2-3.1 cm/m2 LVIDs: 2.29 2.0-3.6 cm LVPWd: 1.24 0.7-1.1 cm LV Mass: 218.40 67-162/88-224 g LV Mass Index: 117.42 43-95/49-115 g/m2 Mitral Valve MV VTI: 0.96 MV Pk Abel: 2.90 MV Mn Abel: 1.82 MV Pk Grad: 34.00 MV Mn Grad: 15.00 PHT: 133.00 MVA PHT: 1.65 Decel Bowie: 6.60 Tricuspid Valve TR Pk Abel: 2.84 TR Pk Grad: 32.00 RVSP: 36.00 Updated in Other Vendor System with Status of Final Juan Carlos Hawkins MD electronically signed on 04/22/2021 10:09:18 PM with status of Final
[2021-04-21] MEDS: 0.9 % Sodium Chloride Flush 3 ML SYRINGE IVFLUSH ×3 (10:25→21:56)
[2021-04-21] MEDS: Apixaban 5 MG TABLET PO ×2 (10:25→21:51)
[2021-04-21] MEDS: Cholecalciferol (Vitamin D3) 25 MCG TABLET 50 MCG PO (10:26)
[2021-04-21] MEDS: predniSONE 20 MG TABLET 40 MG PO (10:26)
[2021-04-21] MEDS: cefTRIAXone sodium 1 GM in 0.9 % Sodium Chloride 50 ML IV (10:27)
[2021-04-21] MEDS: Furosemide 40 MG/4 ML VIAL IVPUSH (10:27)
[2021-04-21] MEDS: Metoprolol Succinate ER 50 MG TAB.ER.24H PO (10:28)
--- NOTE | 2021-04-21 11:02 | P.PNIM_ITS ---
Subjective Subjective Date of Service: 04/21/21 Interval History: cc: sob interval history: improved Cardiovascular Cardiovascular: Reports no additional cardiovascular complaints Gastrointestinal Gastrointestinal: Reports no additional gastrointestinal complaints Physical Exam Vital Signs: Vital Signs: Last Vital Signs Temp 97.8 F 04/21/21 07:06 Pulse 72 04/21/21 07:28 Resp 18 04/21/21 07:28 BP 137/63 04/21/21 07:06 Pulse Ox 97 04/21/21 07:06 BMI result Body Mass Index 36.3 General: AO X 3, no acute distress Resp: CTA bilateral, no accessory muscles used CVS: S1,S2,RRR, murmur, edema GI: soft, non tender, non distended Neuro: motor grossly intact, alert Psych: appropriate affect, appropriate insight Objective Data Active Medications Acetaminophen (Acetaminophen 325 Mg Tablet) 650 mg PO Q6H PRN PRN Reason: Pain, Mild (Pain Scale 1-3) Albuterol Sulfate (Albuterol Sulfate 90 Mcg 8 Gm Inhaler) 2 puff INHALE Q6H PRN PRN Reason: Wheezing Albuterol/Ipratropium (Albuterol/Iprat 2.5/0.5mg 3 Ml Ampul.Neb) 3 ml INHALE RQ 6H WHILE AWAKE [facility] Last Admin: 04/21/21 07:24 Dose: 3 ml Documented by: YRIS Apixaban (Apixaban 5 Mg Tablet) 5 mg PO BID [facility] Last Admin: 04/21/21 10:25 Dose: 5 mg Documented by: ROBERT Benzonatate (Benzonatate 100 Mg Capsule) 100 mg PO TID PRN PRN Reason: Cough Last Admin: 04/21/21 03:19 Dose: 100 mg Documented by: LILIANA Furosemide (Furosemide 40 Mg/4 Ml Vial) 40 mg IVPUSH DAILY [facility]; Protocol Last Admin: 04/21/21 10:27 Dose: 40 mg Documented by: ROBERT Azithromycin 500 mg/ Sodium (Chloride) 250 mls @ 125 mls/hr IV Q24H [facility] Last Infusion: 04/21/21 00:59 Dose: 0 mls/hr Documented by: LILIANA Ceftriaxone Sodium 1 gm/ (Sodium Chloride) 50 mls @ 100 mls/hr IV Q24H [facility] Last Admin: 04/21/21 10:27 Dose: 100 mls/hr Documented by: ROBERT Lamotrigine (Lamotrigine 25 Mg Tablet) 50 mg PO BEDTIME [facility] Last Admin: 04/20/21 22:36 Dose: 50 mg Documented by: PACO Metoprolol Succinate (Metoprolol Succinate Er 50 Mg Tab.Er.24h) 50 mg PO DAILY [facility]; Protocol Last Admin: 04/21/21 10:28 Dose: 50 mg Documented by: ROBERT Olanzapine (Olanzapine 7.5 Mg Tablet) 7.5 mg PO BEDTIME [facility] Last Admin: 04/20/21 23:07 Dose: 7.5 mg Documented by: PACO Ondansetron HCl (Ondansetron Hcl 4 Mg/2 Ml Vial) 4 mg IVPUSH Q8H PRN PRN Reason: Nausea and Vomiting Pharmacy Consult (Consult Rx Perform Med Rec) 1 each MISCELLANE ONCE PRN PRN Reason: Consult order Pharmacy Consult (Consult Rx Vancomycin Dosing) 1 each MISCELLANE DAILY PRN PRN Reason: Consult order Prednisone (Prednisone 20 Mg Tablet) 40 mg PO DAILY [facility] Last Admin: 04/21/21 10:26 Dose: 40 mg Documented by: ROBERT Sodium Chloride (0.9 % Sodium Chloride Flush 3 Ml Syringe) 3 ml IVFLUSH QSHIFT [facility] Last Admin: 04/21/21 10:25 Dose: 3 ml Documented by: ROBERT Vitamin D (Cholecalciferol (Vitamin D3) 25 Mcg Tablet) 50 mcg PO DAILY [facility] Last Admin: 04/21/21 10:26 Dose: 50 mcg Documented by: ROBERT Labs CBC & Chem 7: 04/21/21 06:06 04/21/21 06:06 Labs: Laboratory Results - last 24 hr 04/20/21 04/20/21 04/20/21 11:15 11:15 11:15 MCV 95.4 MCH 29.8 MCHC 31.2 RDW 13.9 Plt Count 278 MPV 10.3 Immature Gran % (Auto) 0.4 Neut % (Auto) 75.1 H Lymph % (Auto) 12.1 L [place] % (Auto) 6.6 Eos % (Auto) 5.2 H Baso % (Auto) 0.6 Lymph # (Auto) 1.5 [place] # (Auto) 0.8 Eos # (Auto) 0.6 H Baso # (Auto) 0.1 Abs Immat Gran (auto) 0.05 H Absolute Neuts (auto) 9.2 H Absolute Nucleated RBC 0.000 Nucleated RBC % (auto) 0.0 Anion Gap 13 Estim Creat Clear Calc 30.1 Estimated GFR 31 Random Glucose 129 H Lactic Acid 0.8 Calcium 9.5 Magnesium 2.1 Total Bilirubin 0.9 Direct Bilirubin 0.3 AST 9 ALT 14 Alkaline Phosphatase 65 B-Natriuretic Peptide Total Protein 6.2 L D Albumin 3.6 D Procalcitonin Urine Color Urine Appearance Urine pH Ur Specific [place] Urine Protein Urine Glucose (UA) Urine Ketones Urine Blood Urine Nitrite Ur Leukocyte Esterase COVID-19 (KARTHIK) COVID-19 Clin Com Influenza Type A (FELIX) Influenza Type B (FELIX) Influenza A & B Note 04/20/21 04/20/21 04/20/21 11:15 11:15 11:15 MCV MCH MCHC RDW Plt Count MPV Immature Gran % (Auto) Neut % (Auto) Lymph % (Auto) [place] % (Auto) Eos % (Auto) Baso % (Auto) Lymph # (Auto) [place] # (Auto) Eos # (Auto) Baso # (Auto) Abs Immat Gran (auto) Absolute Neuts (auto) Absolute Nucleated RBC Nucleated RBC % (auto) Anion Gap Estim Creat Clear Calc Estimated GFR Random Glucose Lactic Acid Calcium Magnesium Total Bilirubin Direct Bilirubin AST ALT Alkaline Phosphatase B-Natriuretic Peptide 673 H Total Protein Albumin Procalcitonin 0.17 Urine Color Urine Appearance Urine pH Ur Specific [place] Urine Protein Urine Glucose (UA) Urine Ketones Urine Blood Urine Nitrite Ur Leukocyte Esterase COVID-19 (KARTHIK) Negative COVID-19 Clin Com See Note Influenza Type A (FELIX) Influenza Type B (FELIX) Influenza A & B Note 04/20/21 04/20/21 04/21/21 11:21 15:25 06:06 MCV MCH MCHC RDW Plt Count MPV Immature Gran % (Auto) Neut % (Auto) Lymph % (Auto) [place] % (Auto) Eos % (Auto) Baso % (Auto) Lymph # (Auto) [place] # (Auto) Eos # (Auto) Baso # (Auto) Abs Immat Gran (auto) Absolute Neuts (auto) Absolute Nucleated RBC Nucleated RBC % (auto) Anion Gap Estim Creat Clear Calc Estimated GFR Random Glucose Lactic Acid Calcium Magnesium Total Bilirubin Direct Bilirubin AST ALT Alkaline Phosphatase B-Natriuretic Peptide 878 H Total Protein Albumin Procalcitonin Urine Color STRAW Urine Appearance CLEAR Urine pH 6.0 Ur Specific [place] <= 1.005 Urine Protein NEG Urine Glucose (UA) NEG Urine Ketones NEG Urine Blood NEG Urine Nitrite NEG Ur Leukocyte Esterase NEG COVID-19 (KARTHIK) COVID-19 Clin Com Influenza Type A (FELIX) Negative Influenza Type B (FELIX) Negative Influenza A & B Note See Note 04/21/21 04/21/21 06:06 06:06 MCV 95.6 MCH 28.9 MCHC 30.3 L RDW 13.6 Plt Count 276 MPV 10.6 Immature Gran % (Auto) Neut % (Auto) Lymph % (Auto) [place] % (Auto) Eos % (Auto) Baso % (Auto) Lymph # (Auto) [place] # (Auto) Eos # (Auto) Baso # (Auto) Abs Immat Gran (auto) Absolute Neuts (auto) Absolute Nucleated RBC 0.000 Nucleated RBC % (auto) 0.0 Anion Gap 15 Estim Creat Clear Calc 31.9 Estimated GFR 33 Random Glucose 139 H Lactic Acid Calcium 9.5 Magnesium Total Bilirubin Direct Bilirubin AST ALT Alkaline Phosphatase B-Natriuretic Peptide Total Protein Albumin Procalcitonin Urine Color Urine Appearance Urine pH Ur Specific [place] Urine Protein Urine Glucose (UA) Urine Ketones Urine Blood Urine Nitrite Ur Leukocyte Esterase COVID-19 (KARTHIK) COVID-19 Clin Com Influenza Type A (FELIX) Influenza Type B (FELIX) Influenza A & B Note Assessment and Plan (1) Acute CHF (congestive heart failure): Status: Acute Plan ?75 years old lady with PMH of COPD, osteopenia among others who presented to the hospital with increased?SOB and LE edema over the last week. Acute hypoxic respiratory failure Secondary to acute on chronic diastolic CHF iv lasix, follow up echo Titrate Oxygen supplement, doubt pna will dc antibiotics cardio following COPD with acute decompensation Bilateral wheezing steroids and nebulizers paroxysmal Atrial fibrillation continue Eliquis, metoprolol and Cardizem CKD stage 3 Follow BMP ?DVT PPX Eliquis Quality Stroke Does the patient have a stroke diagnosis?: No VTE Prior VTE?: No VTE Risk Level:: Medical - moderate - high VTE Device Contraindication: Treatment Not Indicated VTE Drug Contraindication: N/A - Med Ordered
--- NOTE | 2021-04-21 11:57 | PM.CNCAR ---
History of Present Illness History of Present Illness Date of Service: 04/21/21 <PATEL Woodruff - Last Filed: 04/21/21 12:16> 04/21/21 <Juan Carlos Hawkins MD - Last Filed: 04/21/21 21:17> Requesting physician: David Miranda <PATEL Woodruff - Last Filed: 04/21/21 12:16> Consult reason: congestive heart failure <PATEL oWodruff - Last Filed: 04/21/21 12:16> Chief complaint: SOB <PATEL Woodruff - Last Filed: 04/21/21 12:16> Narrative: Nikki is a 75 yo female with PMH of HTn, obesity, sarcoidosis who was admitted to [facility] early Mar with sepsis, UTI and found to have new onset atrial fibrillation with RVR. She was treated for rate control and did convert back to SR. Her echo at that time did show normal EF and elevated gradiants across mitral valve suggesting moderate . Pulse was elevated at time of echo. She as discharged to SNF for rehab, then over the last few days prior to arrival noted increasing sob, orthopnea, leg edema. She was transported to the ED yesterday for evaluation. She was hypoxic with room air sats in low 90s. CXR shows small bilateral effusions, bilateral perihilar and lower lobe airspace disease - differential CHF vs PNA. BNP elevated at 673. Troponin normal. EKG showed SR. She was started on treatment for COPD exacerbation and acute diastolic CHF. Cardiology was consulted. Today she is observed sitting in recliner, in no acute distress. She tells me that her breathing is feeling better. She is wearing 2 liters O2 with cannuala, sat 94%. She does not usually wear O2 at home. She describes the gradual increase of sob in the days prior to her admit. She felt it was her COPD. Has not been having any chest pains at rest or with activity. No palpitations, dizziness, presyncope, syncope, falls. She has mild leg edema which she says is new for her. No other recent illnesses. No fevers, occassional cough. Has been walking short distances with walker at rehab. Was taking all meds that were given to her. No bleeding issues noted. 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 Family/Other Substance use disorder <PATEL Woodruff - Last Filed: 04/21/21 12:16> Social History Social History: Social History Household Members: None Household Members Other:: daughter lives downstairs. Housing: House Do you presently have visiting nurse or other home services: No Patient Tobacco Use Status: Former Tobacco user Quit Date: 02/20/13 Years Smoked: 50 Second Hand Smoke Exposure: No Advance Directives Date on File: 04/01/21 service: No Current occupational status: retired Current occupational exposures/hazards: No <PATEL Woodruff - Last Filed: 04/21/21 12:16> Meds Allergies/Adverse reactions: Allergies Allergy/AdvReac Type Severity Reaction Status Date / Time Sulfa (Sulfonamide Allergy Unknown RASH, Verified 03/31/21 20:28 Antibiotics) Anaphylaxis [SULFA (SULFONAMIDE ANTIBIOTICS)] <PATEL Woodruff - Last Filed: 04/21/21 12:16> Active Medications: Current Medications Acetaminophen (Acetaminophen 325 Mg Tablet) 650 mg PO Q6H PRN PRN Reason: Pain, Mild (Pain Scale 1-3) Albuterol Sulfate (Albuterol Sulfate 90 Mcg 8 Gm Inhaler) 2 puff INHALE Q6H PRN PRN Reason: Wheezing Albuterol/Ipratropium (Albuterol/Iprat 2.5/0.5mg 3 Ml Ampul.Neb) 3 ml INHALE RQ6H WHILE AWAKE [facility] Last Admin: 04/21/21 07:24 Dose: 3 ml Documented by: Apixaban (Apixaban 5 Mg Tablet) 5 mg PO BID [facility] Last Admin: 04/21/21 10:25 Dose: 5 mg Documented by: Benzonatate (Benzonatate 100 Mg Capsule) 100 mg PO TID PRN PRN Reason: Cough Last Admin: 04/21/21 03:19 Dose: 100 mg Documented by: Furosemide (Furosemide 40 Mg/4 Ml Vial) 40 mg IVPUSH DAILY [facility]; Protocol Last Admin: 04/21/21 10:27 Dose: 40 mg Documented by: Lamotrigine (Lamotrigine 25 Mg Tablet) 50 mg PO BEDTIME [facility] Last Admin: 04/20/21 22:36 Dose: 50 mg Documented by: Metoprolol Succinate (Metoprolol Succinate Er 50 Mg Tab.Er.24h) 50 mg PO DAILY [facility]; Protocol Last Admin: 04/21/21 10:28 Dose: 50 mg Documented by: Olanzapine (Olanzapine 7.5 Mg Tablet) 7.5 mg PO BEDTIME [facility] Last Admin: 04/20/21 23:07 Dose: 7.5 mg Documented by: Ondansetron HCl (Ondansetron Hcl 4 Mg/2 Ml Vial) 4 mg IVPUSH Q8H PRN PRN Reason: Nausea and Vomiting Pharmacy Consult (Consult Rx Perform Med Rec) 1 each MISCELLANE ONCE PRN PRN Reason: Consult order Pharmacy Consult (Consult Rx Vancomycin Dosing) 1 each MISCELLANE DAILY PRN PRN Reason: Consult order Prednisone (Prednisone 20 Mg Tablet) 40 mg PO DAILY [facility] Last Admin: 04/21/21 10:26 Dose: 40 mg Documented by: Sodium Chloride (0.9 % Sodium Chloride Flush 3 Ml Syringe) 3 ml IVFLUSH QSHIFT [facility] Last Admin: 04/21/21 10:25 Dose: 3 ml Documented by: Vitamin D (Cholecalciferol (Vitamin D3) 25 Mcg Tablet) 50 mcg PO DAILY [facility] Last Admin: 04/21/21 10:26 Dose: 50 mcg Documented by: <GUILHERME WoodruffC - Last Filed: 04/21/21 12:16> Home medications: Home Medications Medication Instructions Recorded Confirmed Last Taken Type albuterol sulfate 90 mcg/actuation 2 puff INHALATION Q6H PRN 09/23/20 04/20/21 03/30/21 History aerosol inhaler (Ventolin HFA) cholecalciferol (vitamin D3) 50 50 mcg PO DAILY 09/23/20 04/20/21 03/30/21 History mcg (2,000 unit) capsule lamotrigine 25 mg tablet 50 mg PO BEDTIME tab 09/23/20 04/20/21 03/30/21 History melatonin 10 mg tablet 10 mg PO BEDTIME 03/31/21 04/20/21 03/30/21 History olanzapine 7.5 mg tablet 1 tab PO BEDTIME 03/31/21 04/20/21 03/30/21 History tiotropium 2.5 mcg-olodaterol 2.5 2 puff INHALATION DAILY 03/31/21 04/20/21 03/30/21 History mcg/actuation mist for inhalation (Stiolto Respimat) <GUILHERME WoodruffC - Last Filed: 04/21/21 12:16> Physical Exam Vital Signs: Vital Signs: Last Vital Signs Temp 97.1 F 04/21/21 11:08 Pulse 74 04/21/21 11:08 Resp 19 04/21/21 11:08 BP 136/65 04/21/21 11:08 Pulse Ox 94 04/21/21 11:08 BMI result Body Mass Index 36.3 <GUILHERME WoodruffC - Last Filed: 04/21/21 12:16> Const: General: cooperative, no acute distress, alert and awake <GUILHERME WoodruffC - Last Filed: 04/21/21 12:16> Orientation/consciousness: patient oriented x3 <GUILHERME WoodruffC - Last Filed: 04/21/21 12:16> Neck: Other: mild JVD elevation noted <GUILHERME WoodruffC - Last Filed: 04/21/21 12:16> Neck: Yes normal visual inspection <GUILHERME WoodruffC - Last Filed: 04/21/21 12:16> Resp: Other: expiratory wheezes noted bilaterally <[facility] - Last Filed: 04/21/21 12:16> Effort & Inspection: normal respiratory effort and able to speak in complete sentences <[facility] - Last Filed: 04/21/21 12:16> Auscultation: no crackles, no rales and no rhonchi <[facility] - Last Filed: 04/21/21 12:16> Cardio: Rate: regular rate <[facility] - Last Filed: 04/21/21 12:16> Rhythm: regular rhythm <[facility] - Last Filed: 04/21/21 12:16> Heart sounds: S1 normal heart sound present and S2 normal heart sound present <[facility] - Last Filed: 04/21/21 12:16> Peripheral pulses: Peripheral pulses 2+ throughout <[facility] - Last Filed: 04/21/21 12:16> GI: Inspection: Yes normal to inspection <[facility] - Last Filed: 04/21/21 12:16> Neuro: General: patient oriented x3 <[facility] - Last Filed: 04/21/21 12:16> Extrem: Other: soft mildy pitting edema around ankles <[facility] - Last Filed: 04/21/21 12:16> General: Yes normal to inspection <[facility] - Last Filed: 04/21/21 12:16> Objective Labs and Meds Result diagrams: : 04/21/21 06:06 04/21/21 06:06 <[facility] - Last Filed: 04/21/21 12:16> Lab results: Laboratory Results - last 24 hr 04/20/21 04/20/21 04/21/21 11:15 15:25 06:06 WBC RBC Hgb Hct MCV MCH MCHC RDW Plt Count MPV Absolute Nucleated RBC Nucleated RBC % (auto) Sodium Potassium Chloride Carbon Dioxide Anion Gap BUN Creatinine Estim Creat Clear Calc Estimated GFR Random Glucose Calcium B-Natriuretic Peptide 878 H Procalcitonin 0.17 Urine Color STRAW Urine Appearance CLEAR Urine pH 6.0 Ur Specific [place] <= 1.005 Urine Protein NEG Urine Glucose (UA) NEG Urine Ketones NEG Urine Blood NEG Urine Nitrite NEG Ur Leukocyte Esterase NEG 04/21/21 04/21/21 06:06 06:06 WBC 11.3 H RBC 3.18 L Hgb 9.2 L Hct 30.4 L MCV 95.6 MCH 28.9 MCHC 30.3 L RDW 13.6 Plt Count 276 MPV 10.6 Absolute Nucleated RBC 0.000 Nucleated RBC % (auto) 0.0 Sodium 144 Potassium 4.7 Chloride 104 Carbon Dioxide 30 H Anion Gap 15 BUN 33 H Creatinine 1.53 H Estim Creat Clear Calc 31.9 Estimated GFR 33 Random Glucose 139 H Calcium 9.5 B-Natriuretic Peptide Procalcitonin Urine Color Urine Appearance Urine pH Ur Specific [place] Urine Protein Urine Glucose (UA) Urine Ketones Urine Blood Urine Nitrite Ur Leukocyte Esterase <PATEL Woodruff - Last Filed: 04/21/21 12:16> Imaging Radiologist's impression: Impressions Chest X-Ray 04/20/21 12:05 IMPRESSION: New bilateral perihilar and lower lobe airspace disease and small bilateral pleural effusions. Differential would include CHF and pneumonia. <PATEL Woodruff - Last Filed: 04/21/21 12:16> Assessment and Plan (1) Acute CHF (congestive heart failure): Status: Acute <PATEL Woodruff - Last Filed: 04/21/21 12:16> Admit with sob, orthopnea and edema. Has underlying COPD. CXR findings, elevated BNP and exam suggestive of acute diastolic CHF. She is being gently diuresed with IV Lasix. Had SHARON on last hospital admit and will need to be watched. Cr 1.53 currently. Also being treated for COPD exacerbation which is managed by hospitalist. She reports improvement in breathing. Less orthopnea. Still wearing 2L O2 with cannula, sat 94%. Continue to diurese with IV lasix. Strict I+O monitoring, Close monitoring of electrolytes and kidney function. Had elevated gradiants across mitral valve during echo last admit. Had afib RVR at that time - will recheck limited echo to reassess EF, mitral valve gradiants. We will follow <Suad Dina PATEL Aguilera - Last Filed: 04/21/21 12:16> (2) Bilateral pleural effusion: Status: Acute <Suad Dina PATEL Aguilera - Last Filed: 04/21/21 12:16> (3) Acute respiratory failure with hypoxia: Status: Acute <Suad Dina PATEL Aguilera - Last Filed: 04/21/21 12:16> (4) Atrial fibrillation: Status: Acute <PATEL Woodruff - Last Filed: 04/21/21 12:16> New afib last admission. Converted after tx for rate control. Has been on Diltiazem and Metoprolol. EKG and tele so far this admit showing SR, controlled rates. With her HF, will stop Diltiazem. Continue metoprolol. Continue Eliquis use for anticoagulation. Ongoing tele monitoring. <PATEL Woodruff - Last Filed: 04/21/21 12:16> Plan Patient was seen examined at bedside. She said after discharge from the hospital recently she developed progressive shortness of breath. She also orthopnea PND. On clinical grounds she has congestive heart failure. Agree with diuretics. She previously had high gradients across the mitral valve when she was in AFib with RVR as well as sepsis. I think this needs reassessment and we will do limited echo to assess the mitral valve. In the meantime continue diuretics. I think the Cardizem should be discontinued at this stage. Thank you for allowing me to participate in the care of your patient. Please feel free to contact me if you have any questions. <Juan Carlos Hawkins MD - Last Filed: 04/21/21 21:17> Procedures Date of Service Date of Service: 04/21/21 <PATEL Woodruff - Last Filed: 04/21/21 12:16>
[2021-04-21] MEDS: lamoTRIgine 25 MG TABLET 50 MG PO (21:51)
[2021-04-21] MEDS: OLANZapine 7.5 MG TABLET PO (21:51)
[2021-04-22] VITALS (11 sets, daily range): BP systolic 112–159; BP diastolic 63–82; PULSE 62–77; RESP 15–22; TEMP 36.2–37.1; O2SAT 94–99
[2021-04-22 06:14] LABS: Hematocrit 32.8 % (37.0-47.0); Hemoglobin 10.1 g/dl (12.0-16.0); Mean Corpuscular HGB Conc 30.8 g/dl (31.0-35.0); Mean Corpuscular Hemoglobin 29.1 pg (27.0-33.0); Mean Corpuscular Volume 94.5 fL (80.0-98.0); Mean Platelet Volume 10.5 fL (9.4-12.3); Platelet Count 314 X10*3/uL (160-400); Red Blood Count 3.47 X10*6/uL (4.20-5.50); Red Cell Distribution Width 13.7 % (11.0-16.0); White Blood Count 18.1 X10*3/uL (4.8-10.8)
[2021-04-22 06:31] LABS: Anion Gap 14 (12-20); Blood Urea Nitrogen 43 mg/dL (9-16); Calcium 9.9 mg/dL (8.4-10.2); Carbon Dioxide 31 mmol/L (22-29); Chloride 100 mmol/L (96-108); Creatinine Clr Calc Pharmacy 30.9; Estimated Glomerular Filt Rate 32; Glucose Fasting 115 mg/dL (60-99); Sodium 140 mmol/L (135-145)
[2021-04-22] MEDS: Cholecalciferol (Vitamin D3) 25 MCG TABLET 50 MCG PO (08:44)
[2021-04-22] MEDS: Metoprolol Succinate ER 50 MG TAB.ER.24H PO (08:44)
[2021-04-22] MEDS: 0.9 % Sodium Chloride Flush 3 ML SYRINGE IVFLUSH ×3 (08:44→21:10)
[2021-04-22] MEDS: Albuterol/Iprat 2.5/0.5MG 3 ML AMPUL.NEB INHALE ×3 (08:44→19:33)
[2021-04-22] MEDS: Apixaban 5 MG TABLET PO ×2 (08:45→21:09)
[2021-04-22] MEDS: predniSONE 20 MG TABLET 40 MG PO (08:45)
[2021-04-22] MEDS: Furosemide 40 MG/4 ML VIAL IVPUSH (08:45)
--- NOTE | 2021-04-22 10:17 | HO.PM.IMPN ---
Subjective Subjective Date of Service: 04/22/21 Interval History: cc: sob interval history: sob still present but improved, edema much improved Cardiovascular Cardiovascular: Reports no additional cardiovascular complaints Gastrointestinal Gastrointestinal: Reports no additional gastrointestinal complaints Physical Exam Vital Signs: Vital Signs: Last Vital Signs Temp 98.5 F 04/22/21 07:47 Pulse 74 04/22/21 08:45 Resp 18 04/22/21 08:45 BP 151/69 H 04/22/21 07:47 Pulse Ox 96 04/22/21 07:47 BMI result Body Mass Index 36.3 General: AO X 3, fatigued Resp:? diminished bilateral, mild accessory muscles used CVS: S1,S2,RRR, murmur, trace edema GI: soft, non tender, non distended Neuro:? motor grossly intact, alert Psych: appropriate affect, appropriate insight? Objective Data Active Medications Acetaminophen (Acetaminophen 325 Mg Tablet) 650 mg PO Q6H PRN PRN Reason: Pain, Mild (Pain Scale 1-3) Albuterol Sulfate (Albuterol Sulfate 90 Mcg 8 Gm Inhaler) 2 puff INHALE Q6H PRN PRN Reason: Wheezing Albuterol/Ipratropium (Albuterol/Iprat 2.5/0.5mg 3 Ml Ampul.Neb) 3 ml INHALE RQ6H WHILE AWAKE [facility] Last Admin: 04/22/21 08:44 Dose: 3 ml Documented by: NICK Apixaban (Apixaban 5 Mg Tablet) 5 mg PO BID [facility] Last Admin: 04/22/21 08:45 Dose: 5 mg Documented by: NADIA Benzonatate (Benzonatate 100 Mg Capsule) 100 mg PO TID PRN PRN Reason: Cough Last Admin: 04/21/21 03:19 Dose: 100 mg Documented by: LILIANA Furosemide (Furosemide 40 Mg/4 Ml Vial) 40 mg IVPUSH DAILY [facility]; Protocol Last Admin: 04/22/21 08:45 Dose: 40 mg Documented by: NADIA Lamotrigine (Lamotrigine 25 Mg Tablet) 50 mg PO BEDTIME [facility] Last Admin: 04/21/21 21:51 Dose: 50 mg Documented by: SOHAIL Metoprolol Succinate (Metoprolol Succinate Er 50 Mg Tab.Er.24h) 50 mg PO DAILY [facility]; Protocol Last Admin: 04/22/21 08:44 Dose: 50 mg Documented by: NADIA Olanzapine (Olanzapine 7.5 Mg Tablet) 7.5 mg PO BEDTIME [facility] Last Admin: 04/21/21 21:51 Dose: 7.5 mg Documented by: SOHAIL Ondansetron HCl (Ondansetron Hcl 4 Mg/2 Ml Vial) 4 mg IVPUSH Q8H PRN PRN Reason: Nausea and Vomiting Pharmacy Consult (Consult Rx Perform Med Rec) 1 each MISCELLANE ONCE PRN PRN Reason: Consult order Pharmacy Consult (Consult Rx Vancomycin Dosing) 1 each MISCELLANE DAILY PRN PRN Reason: Consult order Prednisone (Prednisone 20 Mg Tablet) 40 mg PO DAILY [facility] Last Admin: 04/22/21 08:45 Dose: 40 mg Documented by: NADIA Sodium Chloride (0.9 % Sodium Chloride Flush 3 Ml Syringe) 3 ml IVFLUSH QSHIFT [facility] Last Admin: 04/22/21 08:44 Dose: 3 ml Documented by: NADIA Vitamin D (Cholecalciferol (Vitamin D3) 25 Mcg Tablet) 50 mcg PO DAILY [facility] Last Admin: 04/22/21 08:44 Dose: 50 mcg Documented by: NADIA Labs CBC & Chem 7: 04/22/21 05:51 04/22/21 05:51 Labs: Laboratory Results - last 24 hr 04/22/21 04/22/21 05:51 05:51 MCV 94.5 MCH 29.1 MCHC 30.8 L RDW 13.7 Plt Count 314 MPV 10.5 Absolute Nucleated RBC 0.000 Nucleated RBC % (auto) 0.0 Anion Gap 14 Estim Creat Clear Calc 30.9 Estimated GFR 32 Fasting Glucose 115 H Calcium 9.9 Microbiology Microbiology Results: Microbiology 04/20/21 11:36 Blood Culture - Preliminary Blood - Venous No growth after 24 hours. 04/20/21 11:21 Blood Culture - Preliminary Blood - Venous No growth after 24 hours. Assessment and Plan (1) Acute CHF (congestive heart failure): Status: Acute Plan ?75 years old lady with PMH of COPD, osteopenia among others who presented to the hospital with increased?SOB and LE edema over the last week. Acute respiratory failure Secondary to acute on chronic diastolic CHF continue iv lasix, follow up limitted echo - Mitral stenosis Titrate Oxygen supplement doubt pna now off antibiotics cardio following COPD with acute decompensation steroids and nebulizers paroxysmal Atrial fibrillation continue Eliquis, metoprolol and Cardizem CKD stage 3 stable leukocytosis due to steroids ?DVT PPX Eliquis reason for continued hospitalization:still fluid overloaded requiring iv diuretics Quality Stroke Does the patient have a stroke diagnosis?: No VTE Prior VTE?: No VTE Risk Level:: Medical - moderate - high VTE Device Contraindication: Treatment Not Indicated VTE Drug Contraindication: N/A - Med Ordered
[2021-04-22] MEDS: Acetaminophen 325 MG TABLET 650 MG PO ×2 (13:55→21:16)
--- NOTE | 2021-04-22 15:50 | P.PNCA_ITS ---
Subjective Subjective Date of Service: 04/22/21 <PATEL Woodruff - Last Filed: 04/22/21 16:03> 04/22/21 <Juan Carlos Hawkins MD - Last Filed: 04/22/21 16:11> Principal diagnosis: COPD exacerbation, CHF <PATEL Woodruff - Last Filed: 04/22/21 16:03> Interval history: Cardiology follow up for CHF. Seen at 1130. Today she reports feeling better today. She is wearing O2 1 liter with cannula and sat 96%. No coughing. Slept with HOB elevated some. No chest pains, palpitation, dizziness. Leg edema improving. No afib seen on tele. <PATEL Woodruff Last Filed: 04/22/21 16:03> Review of Systems Review of Systems as above <PATEL Woodruff Last Filed: 04/22/21 16:03> Yes all other systems are reviewed and are negative <PATEL Woodruff - Last Filed: 04/22/21 16:03> Physical Exam Vital Signs: Last Vital Signs Temp 98 F 04/22/21 15:41 Pulse 76 04/22/21 15:41 Resp 15 04/22/21 15:41 BP 112/68 04/22/21 15:41 Pulse Ox 95 04/22/21 15:41 BMI result Body Mass Index 36.3 <PATEL Woodruff - Last Filed: 04/22/21 16:03> Const General: cooperative, no acute distress, alert and awake <PATEL Woodruff ast Filed: 04/22/21 16:03> Orientation/consciousness: patient oriented x3 <PATEL Woodruff Last Filed: 04/22/21 16:03> Neck Neck: Yes normal visual inspection and Yes no JVD (sitting in chair, no obvious JVD noted) <PATEL Woodruff Last Filed: 04/22/21 16:03> Resp Other: mild coarseness in low bases bilaterally <PATEL Woodruff - Last Filed: 04/22/21 16:03> Effort & Inspection: normal respiratory effort, able to speak in complete sentences and not labored <Suadilsa AguileraJOSIAHC - Last Filed: 04/22/21 16:03> Auscultation: clear to auscultation bilaterally, no rhonchi and no wheezes <Suad Willy [facility] - Last Filed: 04/22/21 16:03> Cardio Rate: regular rate <[facility] Willy [facility] - Last Filed: 04/22/21 16:03> Rhythm: regular rhythm <[facility] Willy [facility] - Last Filed: 04/22/21 16:03> Heart sounds: S1 normal heart sound present and S2 normal heart sound present <[facility] Willy [facility] - Last Filed: 04/22/21 16:03> Peripheral pulses: Peripheral pulses 2+ throughout <Suad Willy [facility] - Last Filed: 04/22/21 16:03> GI Inspection: Yes normal to inspection <[facility] Willy [facility] - Last Filed: 04/22/21 16:03> Neuro General: patient oriented x3 <[facility] Willy [facility] - Last Filed: 04/22/21 16:03> Extrem Other: trace ankle <[facility] Willy [facility] - Last Filed: 04/22/21 16:03> General: Yes normal to inspection <[facility] Willy [facility] - Last Filed: 04/22/21 16:03> Objective Labs and Meds Result diagrams: : 04/22/21 05:51 04/22/21 05:51 <Suad Willy [facility] - Last Filed: 04/22/21 16:03> Lab results: Laboratory Results - last 24 hr 04/22/21 04/22/21 05:51 05:51 WBC 18.1 H RBC 3.47 L Hgb 10.1 L Hct 32.8 L MCV 94.5 MCH 29.1 MCHC 30.8 L RDW 13.7 Plt Count 314 MPV 10.5 Absolute Nucleated RBC 0.000 Nucleated RBC % (auto) 0.0 Sodium 140 Potassium 5.0 Chloride 100 Carbon Dioxide 31 H Anion Gap 14 BUN 43 H Creatinine 1.58 H Estim Creat Clear Calc 30.9 Estimated GFR 32 Fasting Glucose 115 H Calcium 9.9 <PATEL Woodruff - Last Filed: 04/22/21 16:03> Progress Note: A&P Assessment and plan (1) Acute CHF (congestive heart failure): Status: Acute <Suad Dina PATEL Aguilera - Last Filed: 04/22/21 16:03> Assessment and Plan: Admit with increasing shortness of breath, orthopnea and edema. Being treated for acute diastolic heart failure. Chest x-ray did show findings consis tent with heart failure. BNP was elevated. She is being gently diuresed with IV Lasix. Had SHARON on last hospital admit and will need to be watched. Cr 1.58 currently, was 1.53 yesterday. Also being treated for COPD exacerbation which is managed by hospitalist. She reports improvement in breathing today. Less orthopnea and edema. Still wearing 1L O2 with cannula, sat 96%. Continue to diurese with IV lasix another day. Strict I+O monitoring, Close monitoring of electrolytes and kidney function. Had elevated gradiants across mitral valve during echo last admit. Had AFib RVR at that time. Repeat limited echo done, awaiting full report. We will follow <PATEL Woodruff - Last Filed: 04/22/21 16:03> (2) Bilateral pleural effusion: Status: Acute <PATEL Woodruff - Last Filed: 04/22/21 16:03> (3) Acute exacerbation of chronic obstructive airways disease: Status: Acute <PATEL Woodruff - Last Filed: 04/22/21 16:03> (4) Atrial fibrillation: Status: Acute <PATEL Woodruff - Last Filed: 04/22/21 16:03> Assessment and Plan: ?New afib last admission. Converted after tx for rate control. Had been on Diltiazem and Metoprolol. Diltiazem was stopped yesterday due to heart failure, no AFib. Telemetry monitoring continues to show sinus rhythm with rate 60s to 70s. Continue metoprolol. Continue Eliquis use for anticoagulation. Ongoing tele monitoring. <PATEL Woodruff - Last Filed: 04/22/21 16:03> (5) HTN (hypertension): Status: Acute <PATEL Woodruff - Last Filed: 04/22/21 16:03> Assessment and Plan: Mild elevation at times, the same 138/65. She is off diltiazem. Once heart failure resolved, diltiazem could be restarted or start alternate agent such as amlodipine. <PATEL Woodruff - Last Filed: 04/22/21 16:03> Plan Patient seen examined at bedside. Clinically improving. Continue IV diuretics. Echocardiography reviewed and is still shows high-gradients across the mitral valve. The mitral valve area by planimetry is 2.3 cm2. Overall the gradient and the area do not correlate. I will review this with couple of colleagues. As mentioned she is improving and I think tomorrow she can be changed to oral diuretics. Thank you for allowing me to participate in the care of your patient. Please feel free to contact me if you have any questions. <Juan Carlos Hawkins MD - Last Filed: 04/22/21 16:11> Fall Risk Details Current Medications: Current Medications Acetaminophen (Acetaminophen 325 Mg Tablet) 650 mg PO Q6H PRN PRN Reason: Pain, Mild (Pain Scale 1-3) Last Admin: 04/22/21 13:55 Dose: 650 mg Documented by: Albuterol Sulfate (Albuterol Sulfate 90 Mcg 8 Gm Inhaler) 2 puff INHALE Q6H PRN PRN Reason: Wheezing Albuterol/Ipratropium (Albuterol/Iprat 2.5/0.5mg 3 Ml Ampul.Neb) 3 ml INHALE RQ6H WHILE AWAKE [facility] Last Admin: 04/22/21 13:46 Dose: 3 ml Documented by: Apixaban (Apixaban 5 Mg Tablet) 5 mg PO BID [facility] Last Admin: 04/22/21 08:45 Dose: 5 mg Documented by: Benzonatate (Benzonatate 100 Mg Capsule) 100 mg PO TID PRN PRN Reason: Cough Last Admin: 04/21/21 03:19 Dose: 100 mg Documented by: Furosemide (Furosemide 40 Mg/4 Ml Vial) 40 mg IVPUSH DAILY [facility]; Protocol Last Admin: 04/22/21 08:45 Dose: 40 mg Documented by: Lamotrigine (Lamotrigine 25 Mg Tablet) 50 mg PO BEDTIME [facility] Last Admin: 04/21/21 21:51 Dose: 50 mg Documented by: Metoprolol Succinate (Metoprolol Succinate Er 50 Mg Tab.Er.24h) 50 mg PO DAILY [facility]; Protocol Last Admin: 04/22/21 08:44 Dose: 50 mg Documented by: Olanzapine (Olanzapine 7.5 Mg Tablet) 7.5 mg PO BEDTIME [facility] Last Admin: 04/21/21 21:51 Dose: 7.5 mg Documented by: Ondansetron HCl (Ondansetron Hcl 4 Mg/2 Ml Vial) 4 mg IVPUSH Q8H PRN PRN Reason: Nausea and Vomiting Pharmacy Consult (Consult Rx Perform Med Rec) 1 each MISCELLANE ONCE PRN PRN Reason: Consult order Pharmacy Consult (Consult Rx Vancomycin Dosing) 1 each MISCELLANE DAILY PRN PRN Reason: Consult order Prednisone (Prednisone 20 Mg Tablet) 40 mg PO DAILY [facility] Last Admin: 04/22/21 08:45 Dose: 40 mg Documented by: Sodium Chloride (0.9 % Sodium Chloride Flush 3 Ml Syringe) 3 ml IVFLUSH QSHIFT [facility] Last Admin: 04/22/21 15:47 Dose: 3 ml Documented by: Vitamin D (Cholecalciferol (Vitamin D3) 25 Mcg Tablet) 50 mcg PO DAILY [facility] Last Admin: 04/22/21 08:44 Dose: 50 mcg Documented by: <PATEL Woodruff - Last Filed: 04/22/21 16:03> Time Spent With Patient Time: Total time spent is greater than 50% in coordination of care (as d ocumented) at patient's floor/unit and/or counseling patient: <PATEL Woodruff - Last Filed: 04/22/21 16:03> Time with patient: 15 - 24 minutes <PATEL Woodruff - Last Filed: 04/22/21 16:03> Progress Note: Quality Stroke Does the patient have a stroke diagnosis?: No <PATEL Woodruff Last Filed: 04/22/21 16:03> Procedures Date of Service Date of Service: 04/22/21 <PATEL Woodruff - Last Filed: 04/22/21 16:03>
[2021-04-22] MEDS: OLANZapine 7.5 MG TABLET PO (21:09)
[2021-04-22] MEDS: lamoTRIgine 25 MG TABLET 50 MG PO (21:09)
[2021-04-23 04:00] VITALS: BP 150/84; PULSE 72; RESP 16; TEMP 36.9; O2SAT 97
[2021-04-23 06:48] LABS: Hematocrit 35.4 % (37.0-47.0); Hemoglobin 11.1 g/dl (12.0-16.0); Mean Corpuscular HGB Conc 31.4 g/dl (31.0-35.0); Mean Corpuscular Hemoglobin 29.4 pg (27.0-33.0); Mean Corpuscular Volume 93.7 fL (80.0-98.0); Mean Platelet Volume 10.5 fL (9.4-12.3); Platelet Count 337 X10*3/uL (160-400); Red Blood Count 3.78 X10*6/uL (4.20-5.50); Red Cell Distribution Width 13.5 % (11.0-16.0); White Blood Count 17.5 X10*3/uL (4.8-10.8)
[2021-04-23 07:11] LABS: Anion Gap 13 (12-20); Blood Urea Nitrogen 49 mg/dL (9-16); Calcium 9.7 mg/dL (8.4-10.2); Carbon Dioxide 33 mmol/L (22-29); Chloride 97 mmol/L (96-108); Creatinine Clr Calc Pharmacy 30.9; Estimated Glomerular Filt Rate 32; Glucose Fasting 96 mg/dL (60-99); Potassium 4.8 mmol/L (3.3-5.1); Sodium 138 mmol/L (135-145)
[2021-04-23 07:16] LABS: B Type Natriuretic Peptide 314 pg/mL (<100)
[2021-04-23 07:41] VITALS: BP 142/76; PULSE 68; RESP 20; TEMP 36.6; O2SAT 95
[2021-04-23] MEDS: Albuterol/Iprat 2.5/0.5MG 3 ML AMPUL.NEB INHALE (07:44)
[2021-04-23 07:45] VITALS: PULSE 69; RESP 16; O2SAT 96
[2021-04-23] MEDS: 0.9 % Sodium Chloride Flush 3 ML SYRINGE IVFLUSH (08:15)
[2021-04-23] MEDS: Cholecalciferol (Vitamin D3) 25 MCG TABLET 50 MCG PO (08:15)
[2021-04-23] MEDS: Metoprolol Succinate ER 50 MG TAB.ER.24H PO (08:15)
[2021-04-23] MEDS: Furosemide 40 MG/4 ML VIAL IVPUSH (08:16)
[2021-04-23] MEDS: predniSONE 20 MG TABLET 40 MG PO (08:16)
[2021-04-23] MEDS: Apixaban 5 MG TABLET PO (08:16)
--- NOTE | 2021-04-23 09:26 | PM.DS ---
DS: Providers Provider Date of Service: 04/23/21 Date of admission: 04/20/21 14:52 Primary care physician: TRINIDAD Uribe Consults: 04/20/21 14:51 Consult to Cardiology Routine Consulting Provider: Juan Carlos Hawkins Reason for consultation: new onset heart failure DS: Diagnosis Discharge Diagnosis (1) Acute CHF (congestive heart failure): Status: Acute (2) Bilateral pleural effusion: Status: Acute (3) Acute exacerbation of chronic obstructive airways disease: Status: Acute (4) Atrial fibrillation: Status: Acute (5) HTN (hypertension): Status: Acute DS: Summary Hospital Course Hospital Course: from initial hpi:Chief Complaint: SOB and edema A 75 years old lady with PMH of COPD, osteopenia among others who presented to the hospital with increased?SOB and LE edema over the last week. she report doing fairly ok at the SNF facility after being discharged 2 weeks ago from the hospital for Afib rvr and SHARON.? Reports she started physical therapy for we then for the last the she noticed increase of difficulty breathing and shortness of breath up to the last 3 days were she was placed on 2 L of oxygen all the time at facility.? Her symptom associated with feeling weakness and tired but denies any chest pain, palpitation, fever or chills, change in bowel habit or urinary symptoms.? In the emergency an x-ray was concerning for bilateral pleural effusions and possible infiltrates.? Admitted for further evaluation and treatment. hospital course: patient was admitted for acute respiratory failure secondary to acute on chronic diastolic CHF with mitral stenosis. She was treated with IV Lasix and diuresed well. She was able to be weaned off oxygen. She was seen by Cardiology who recommended limited echo to evaluate mitral valve which showed moderate to severe mitral stenosis, recommendations were to continue oral diuresis and follow up outpatient. Initially there was some concern for bacterial pneumonia, however this was felt to be unlikely and antibiotics were discontinued. Course was also complicated by COPD with acute decompensation. She was treated with systemic steroids and bronchodilators with improvement in wheezing and shortness of breath. She will continue 5 days of oral prednisone. Patient has a history of paroxysmal atrial fibrillation on Eliquis, metoprolol, and Cardizem. Cardiology recommended discontinuing Cardizem. Her CKD 3 remained stable with creatinine around 1.5-1.6. She was noted to have leukocytosis but this was likely due to her steroids. Patient is now feeling better [facility] Time Spent with Patient Time attestation: Total time spent providing and/or coordinating discharge services: Discharge coordination time: Greater than 30 minutes Quality: Stroke Does the patient have a stroke diagnosis?: No Physical Exam Vital Signs: Vital Signs: Last Vital Signs Temp 97.9 F 04/23/21 07:41 Pulse 69 04/23/21 07:45 Resp 16 04/23/21 07:45 BP 142/76 H 04/23/21 07:41 Pulse Ox 95 04/23/21 07:41 BMI result Body Mass Index 36.3 General: AO X 3, no acute distress Resp: CTA bilateral, no accessory muscles used CVS: S1,S2,RRR, murmur GI: soft, non tender, non distended Neuro: motor grossly intact, alert Psych: appropriate affect, appropriate insight DS: Data Data Completed and Pending Labs on day of discharge: Laboratory Results - last 24 hr 04/23/21 04/23/21 04/23/21 05:53 05:53 05:53 WBC 17.5 H RBC 3.78 L Hgb 11.1 L Hct 35.4 L MCV 93.7 MCH 29.4 MCHC 31.4 RDW 13.5 Plt Count 337 MPV 10.5 Absolute Nucleated RBC 0.000 Nucleated RBC % (auto) 0.0 Sodium 138 Potassium 4.8 Chloride 97 Carbon Dioxide 33 H Anion Gap 13 BUN 49 H Creatinine 1.58 H Estim Creat Clear Calc 30.9 Estimated GFR 32 Fasting Glucose 96 Calcium 9.7 B-Natriuretic Peptide 314 H Preliminary micro results at discharge 04/20/21 11:36 Blood Culture - Preliminary Blood - Venous No growth after 48 hours. 04/20/21 11:21 Blood Culture - Preliminary Blood - Venous No growth after 48 hours. Discharge Plan Discharge Patient Disposition: Xfer SNF Discharge Diagnosis: chf, copd Referrals: Juan Jose Ellington FNP-VAISHALI [Primary Care Provider] - 1 Week Discharge Medications: New prednisone 20 mg Tablet 40 mg PO DAILY Qty: 10 0RF furosemide [Lasix] 20 mg tablet 20 mg PO DAILY Qty: 30 0RF Continued simvastatin 20 mg tablet 20 mg PO BEDTIME Qty: 90 1RF olanzapine 7.5 mg tablet 1 tab PO BEDTIME 0RF melatonin 10 mg Tablet 10 mg PO BEDTIME 0RF Stiolto Respimat 2.5-2.5 mcg/actuation mist 2 puff inhalation DAILY 0RF Eliquis 5 mg Tablet 5 mg PO BID 30 Days Qty: 60 0RF metoprolol succinate 50 mg tablet extended release 24 hr 50 mg PO DAILY Qty: 30 0RF lamotrigine 25 mg tablet 50 mg PO BEDTIME 0RF cholecalciferol (vitamin D3) 50 mcg (2,000 unit) capsule 50 mcg PO DAILY 0RF albuterol sulfate [Ventolin HFA] 90 mcg/actuation HFA aerosol inhaler 2 puff inhalation Q6H PRN (Reason: Wheezing) 0RF Discontinued diltiazem HCl 240 mg Capsule,Extended Release 24hr 240 mg PO DAILY 30 Days Qty: 30 0RF Protocol: Hold for SBP/HR < HOLD for SBP < : 90 HOLD for HR < : 60 Discharge Orders: Discharge Order (Routine); Ordered 04/23/21 Ordered By: David Miranda Diet: advance to usual diet Activity on Discharge: As tolerated Stand Alone Forms: Patient Portal Discharge page Care Plan Goals: avoid hospitalizatoins Health Concerns: chf, copd Plan of Treatment: prednisone 5 days, started on lasix 20mg daily, stopped cardizem Assessment: see above
--- NOTE | 2021-04-23 11:09 | PM.PNCARD ---
Subjective Subjective Date of Service: 04/23/21 <PATEL Woodruff - Last Filed: 04/23/21 11:18> 04/23/21 <Juan Carlos Hawkins MD - Last Filed: 04/23/21 12:57> Principal diagnosis: COPD exacerbation, CHF <PATEL Woodruff - Last Filed: 04/23/21 11:18> Interval history: Cardiology follow up for HF. Seen at 1015. Today she reports feeling well and will be going back to [facility]. She states her breathing is back to normal. Not wearing any O2 supplement. No PND, orthopnea. Has small amount of residual soft edema in lower legs. No chest pains, palpitation, dizziness. Steady on feet with use of walker. <PATEL Woodruff - Last Filed: 04/23/21 11:18> Review of Systems Review of Systems as above <PATEL Woodruff - Last Filed: 04/23/21 11:18> Yes all other systems are reviewed and are negative <PATEL Woodruff - Last Filed: 04/23/21 11:18> Physical Exam Vital Signs: Last Vital Signs Temp 97.9 F 04/23/21 07:41 Pulse 69 04/23/21 07:45 Resp 16 04/23/21 07:45 BP 142/76 H 04/23/21 07:41 Pulse Ox 95 04/23/21 07:41 BMI result Body Mass Index 36.3 <PATEL Woodruff - Last Filed: 04/23/21 11:18> Const General: cooperative, healthy appearing, no acute distress, alert and awake <PATEL Woodruff - Last Filed: 04/23/21 11:18> Orientation/consciousness: patient oriented x3 <PATEL Woodruff - Last Filed: 04/23/21 11:18> Neck Neck: Yes normal visual inspection and Yes no JVD <PATEL Woodruff - Last Filed: 04/23/21 11:18> Resp Effort & Inspection: normal respiratory effort, able to speak in complete sentences and not labored <PATEL Woodruff - Last Filed: 04/23/21 11:18> Auscultation: clear to auscultation bilaterally, no rales, no rhonchi and no wheezes <Suad AguileraGUILHERMEC - Last Filed: 04/23/21 11:18> Cardio Rate: regular rate <Suad Aguilera GUILHERMEC - Last Filed: 04/23/21 11:18> Rhythm: regular rhythm <Suad Aguilera GUILHERMEC - Last Filed: 04/23/21 11:18> Heart sounds: S1 normal heart sound present and S2 normal heart sound present <Suad AguileraJOSIAH-C - Last Filed: 04/23/21 11:18> Peripheral pulses: Peripheral pulses 2+ throughout <Suad AguileraJOSIAHC - Last Filed: 04/23/21 11:18> GI Inspection: Yes normal to inspection <Suad AguileraJOSIAHCorinnaC - Last Filed: 04/23/21 11:18> Neuro General: patient oriented x3 <Suad AguileraJOSIAHCorinnaC - Last Filed: 04/23/21 11:18> Extrem General: Yes normal to inspection and No edema <Suad AguileraJOSIAH-C - Last Filed: 04/23/21 11:18> Objective Labs and Meds Result diagrams: : 04/23/21 05:53 04/23/21 05:53 <Suad AguileraJOSIAH-C - Last Filed: 04/23/21 11:18> Lab results: Laboratory Results - last 24 hr 04/23/21 04/23/21 04/23/21 05:53 05:53 05:53 WBC 17.5 H RBC 3.78 L Hgb 11.1 L Hct 35.4 L MCV 93.7 MCH 29.4 MCHC 31.4 RDW 13.5 Plt Count 337 MPV 10.5 Absolute Nucleated RBC 0.000 Nucleated RBC % (auto) 0.0 Sodium 138 Potassium 4.8 Chloride 97 Carbon Dioxide 33 H Anion Gap 13 BUN 49 H Creatinine 1.58 H Estim Creat Clear Calc 30.9 Estimated GFR 32 Fasting Glucose 96 Calcium 9.7 B-Natriuretic Peptide 314 H <Suad AguileraGUILHERMEC - Last Filed: 04/23/21 11:18> Progress Note: A&P Assessment and plan (1) Acute CHF (congestive heart failure): Status: Acute <PATEL Woodruff - Last Filed: 04/23/21 11:18> Assessment and Plan: Admit with increasing shortness of breath, orthopnea and edema.? Has been treated for acute diastolic heart failure.? Chest x-ray did show findings consistent with heart failure. BNP was elevated. She is being gently diuresed with IV Lasix. Had SHARON on last hospital admit and will need to be watched. Cr 1.58 currently, was 1.58 yesterday as well.? Also has been treated for COPD exacerbation which is managed by hospitalist. She now reports that breathing is back to normal. No longer wearing O2 supplement. Sat 95% on RA. Change Lasix to po. Home dose was 20mg daily, can send home with 40mg daily. Can be discharged from a cardiology perspective. We will arrange for outpt cardiology follow up. <PATEL Woodruff - Last Filed: 04/23/21 11:18> (2) Mitral stenosis: Status: Acute <PATEL Woodruff - Last Filed: 04/23/21 11:18> Assessment and Plan: Last admit had elevated gradiants across mitral valve suggesting mitral stenosis. She had AFib RVR at that time. Repeat limited echo done this admit shows increased gradients across the mitral valve, moderate to severe mitral stenosis. Will plan for an outpatient JOHNNY for further evaluation. Patient was informed. <PATEL Woodruff - Last Filed: 04/23/21 11:18> (3) Acute exacerbation of chronic obstructive airways disease: Status: Acute <PATEL Woodruff - Last Filed: 04/23/21 11:18> (4) Atrial fibrillation: Status: Acute <PATEL Woodruff - Last Filed: 04/23/21 11:18> Assessment and Plan: ?New afib last admission. Converted after tx for rate control. Had been on Diltiazem and Metoprolol.? Diltiazem was stopped 3/ due to heart failure, no AFib.? Telemetry monitoring continues to show sinus rhythm with rate 60s to 70s.? Continue metoprolol. Continue Eliquis use for anticoagulation. Ongoing tele monitoring. <PATEL Woodruff - Last Filed: 04/23/21 11:18> Plan patient seen examined at bedside. Clinically improved and denying any symptoms. Will be discharged back to rehab facility today. Discontinue Cardizem at discharge. Continue beta-juana. Agree with oral diuretics. by echocardiography she has mitral stenosis but the exact degree is unclear to me right now. I think she has some with him moderate to severe mitral stenosis. We will bring her in the office for follow-up and will plan a transesophageal echocardiogram with 3D imaging of the mitral valve. Thank you for allowing me to participate in the care of your patient. Please feel free to contact me if you have any questions. <Juan Carlos Hawkins MD - Last Filed: 04/23/21 12:57> Fall Risk Details Current Medications: Current Medications Acetaminophen (Acetaminophen 325 Mg Tablet) 650 mg PO Q6H PRN PRN Reason: Pain, Mild (Pain Scale 1-3) Last Admin: 04/22/21 21:16 Dose: 650 mg Documented by: Albuterol Sulfate (Albuterol Sulfate 90 Mcg 8 Gm Inhaler) 2 puff INHALE Q6H PRN PRN Reason: Wheezing Albuterol/Ipratropium (Albuterol/Iprat 2.5/0.5mg 3 Ml Ampul.Neb) 3 ml INHALE RQ6H WHILE AWAKE [facility] Last Admin: 04/23/21 07:44 Dose: 3 ml Documented by: Apixaban (Apixaban 5 Mg Tablet) 5 mg PO BID [facility] Last Admin: 04/23/21 08:16 Dose: 5 mg Documented by: Benzonatate (Benzonatate 100 Mg Capsule) 100 mg PO TID PRN PRN Reason: Cough Last Admin: 04/21/21 03:19 Dose: 100 mg Documented by: Furosemide (Furosemide 40 Mg/4 Ml Vial) 40 mg IVPUSH DAILY [facility]; Protocol Last Admin: 04/23/21 08:16 Dose: 40 mg Documented by: Lamotrigine (Lamotrigine 25 Mg Tablet) 50 mg PO BEDTIME [facility] Last Admin: 04/22/21 21:09 Dose: 50 mg Documented by: Metoprolol Succinate (Metoprolol Succinate Er 50 Mg Tab.Er.24h) 50 mg PO DAILY [facility]; Protocol Last Admin: 04/23/21 08:15 Dose: 50 mg Documented by: Olanzapine (Olanzapine 7.5 Mg Tablet) 7.5 mg PO BEDTIME [facility] Last Admin: 04/22/21 21:09 Dose: 7.5 mg Documented by: Ondansetron HCl (Ondansetron Hcl 4 Mg/2 Ml Vial) 4 mg IVPUSH Q8H PRN PRN Reason: Nausea and Vomiting Pharmacy Consult (Consult Rx Perform Med Rec) 1 each MISCELLANE ONCE PRN PRN Reason: Consult order Pharmacy Consult (Consult Rx Vancomycin Dosing) 1 each MISCELLANE DAILY PRN PRN Reason: Consult order Prednisone (Prednisone 20 Mg Tablet) 40 mg PO DAILY [facility] Last Admin: 04/23/21 08:16 Dose: 40 mg Documented by: Sodium Chloride (0.9 % Sodium Chloride Flush 3 Ml Syringe) 3 ml IVFLUSH QSHIFT [facility] Last Admin: 04/23/21 08:15 Dose: 3 ml Documented by: Vitamin D (Cholecalciferol (Vitamin D3) 25 Mcg Tablet) 50 mcg PO DAILY [facility] Last Admin: 04/23/21 08:15 Dose: 50 mcg Documented by: <PATEL Woodruff - Last Filed: 04/23/21 11:18> Time Spent With Patient Time: Total time spent is greater than 50% in coordination of care (as documented) at patient's floor/unit and/or counseling patient: 18 <PATEL Woodruff - Last Filed: 04/23/21 11:18> Time with patient: 15 - 24 minutes <PATEL Woodruff - Last Filed: 04/23/21 11:18> Progress Note: Quality Stroke Does the patient have a stroke diagnosis?: No <PATEL Woodruff - Last Filed: 04/23/21 11:18> Procedures Date of Service Date of Service: 04/23/21 <PATEL Woodruff - Last Filed: 04/23/21 11:18>
--- NOTE | 2021-04-23 11:50 | MHC.CM.PN ---
PT CLEARED TO DC TO [facility] AT 1200 HOURS VIA BLS
[2021-04-23 12:00] VITALS: BP 142/76; PULSE 69; RESP 16; TEMP 36.6; O2SAT 95
== END 2021-04-23 12:30 | disposition skilled nursing facility (03) | DRG 291 ==
LOC: HO.ED 12:46 → HO.EDOVER 15:02 → HO.IMC 18:47
PROVIDERS: Nurse Practitioner Family; Physician Assistant; Admitting Provider Student in an Organized Health Care Education/Training Program; Emergency Provider Emergency Medicine; PCP Nurse Practitioner Family; Visit Provider Internal Medicine
DX: I13.0 Hypertensive heart and chronic kidney disease with heart failure and stage 1 through stage 4 chronic kidney disease, or unspecified chronic kidney disease (principal); J96.01 Acute respiratory failure with hypoxia; J18.9 Pneumonia, unspecified organism; I50.33 Acute on chronic diastolic (congestive) heart failure; J44.0 Chronic obstructive pulmonary disease with (acute) lower respiratory infection; J98.11 Atelectasis; J44.1 Chronic obstructive pulmonary disease with (acute) exacerbation; E78.5 Hyperlipidemia, unspecified; N18.30 Chronic kidney disease, stage 3 unspecified; I48.0 Paroxysmal atrial fibrillation; D72.829 Elevated white blood cell count, unspecified; I05.0 Rheumatic mitral stenosis; F31.9 Bipolar disorder, unspecified; Z20.822 Contact with and (suspected) exposure to COVID-19; Z87.440 Personal history of urinary (tract) infections; Z87.891 Personal history of nicotine dependence; Z88.2 Allergy status to sulfonamides; Z79.01 Long term (current) use of anticoagulants; Z79.899 Other long term (current) drug therapy
CPT/HCPCS: 36415; 71045; 80048; 80076; 81003; 83605; 83735; 83880; 84145; 84484; 85025; 85027; 87040; 87502; 87635; 93005; 93308; 94640; 94644; 96365; 96375; 97110; 97162; 99285; 99291; J0456; J0692; J0696; J1940; J2930; J3370

== ENCOUNTER 2021-05-03 00:45 | Outpatient (REF) | payer MEDICARE, MEDICAID, SELFPAY ==
[2021-05-03 06:46] LABS: MANUAL DIFF FLAG NO
[2021-05-03 06:59] LABS: Basophils Percent Auto 0.2 % (0-2); Eosinophils Absolute Auto 0.1 X10*3/uL (0.0-0.4); Eosinophils Percent Auto 0.4 % (0-4); Hematocrit 33.3 % (37.0-47.0); Hemoglobin 10.3 g/dl (12.0-16.0); Imm Gran Pct Auto 2.1 % (0.0-0.4); Lymphocytes Percent Auto 16.1 % (20-40); Mean Corpuscular HGB Conc 30.9 g/dl (31.0-35.0); Mean Corpuscular Hemoglobin 29.5 pg (27.0-33.0); Mean Corpuscular Volume 95.4 fL (80.0-98.0); Mean Platelet Volume 10.5 fL (9.4-12.3); Monocytes Percent Auto 5.4 % (2-11); Neutrophils Absolute Auto 14.3 x10*3/uL (2.0-8.3); Neutrophils Percent Auto 75.8 % (45-73); Platelet Count 312 X10*3/uL (160-400); Red Blood Count 3.49 X10*6/uL (4.20-5.50); Red Cell Distribution Width 15.1 % (11.0-16.0); White Blood Count 18.9 X10*3/uL (4.8-10.8)
[2021-05-03 07:21] LABS: Anion Gap 14 (12-20); Blood Urea Nitrogen 34 mg/dL (9-16); Calcium 9.3 mg/dL (8.4-10.2); Carbon Dioxide 26 mmol/L (22-29); Chloride 106 mmol/L (96-108); Estimated Glomerular Filt Rate 28; Glucose Random 98 mg/dL (60-115); Potassium 4.3 mmol/L (3.3-5.1); Sodium 142 mmol/L (135-145)
== END 2021-05-03 00:46 | disposition home or self-care (01) ==
LOC: HO.MMNH2L 00:45
PROVIDERS: Visit Provider Family Medicine
DX: I10 Essential (primary) hypertension (principal)
CPT/HCPCS: 36415; 80048; 85025

== ENCOUNTER 2021-05-10 00:40 | Outpatient (REF) | payer MEDICARE, SELFPAY | END 2021-05-10 00:41 | disposition home or self-care (01) | LOC: HO.MMNH2L 00:40 | PROVIDERS: Visit Provider Family Medicine | DX: Z13.89 Encounter for screening for other disorder (principal) ==

== ENCOUNTER 2021-05-31 10:57 | Day surgery (SDC) | payer MEDICARE, SELFPAY ==
[2021-05-25 10:32] VITALS: BMI 34.0
--- NOTE | 2021-05-28 10:07 | HO.ANESPROP2 ---
Documented by User: Lupe Gunderson NP 05/28/21 10:14 HPI - Anesthesia Eval Consult details Narrative: 75yo F for Transesophageal Echo and Cardioversion Eliquis for afib Hx sarcoid, ? prednisone PMFSH Active Problems Active Problems: All Active Problems (Updated 04/23/21 @ 11:15 by Suad Aguilera NP-C) Screening for osteoporosis (Acute) Microhematuria (Acute) Osteopenia (Acute) Physical deconditioning (Acute) Acute exacerbation of chronic obstructive airways disease (Acute) Acute respiratory failure with hypoxia (Acute) Bilateral pleural effusion (Acute) Acute CHF (congestive heart failure) (Acute) Mitral stenosis (Acute) Atrial fibrillation (Acute) HTN (hypertension) (Acute) Past Medical History Medical History (Updated 04/23/21 @ 11:15 by Suad Aguilera NP-C) Atrial fibrillation Bipolar 1 disorder COPD (chronic obstructive pulmonary disease) Dyslipidemia HTN (hypertension) Kidney disease Leukocytosis 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 Family/Other Substance use disorder Surgical History Surgical History (Updated 05/25/21 @ 10:32 by Mary Kay Leon RN) History of bronchoscopy Social History Social History Household Members: None Household Members Other:: daughter lives downstairs Housing: House Are you a primary long term care administrator to a significant other at home: No Do you presently have visiting nurse or other home services: No Patient Tobacco Use Status: Former Tobacco user Quit Date: 2013 Tobacco use type: Cigarette Years Smoked: 50 Second Hand Smoke Exposure: No Advance Directives Date on File: 06/02/16 service: No Current occupational status: retired Current occupational exposures/hazards: No Meds Allergies Allergy/AdvReac Type Severity Reaction Status Date / Time Sulfa (Sulfonamide Allergy Severe RASH, Verified 05/25/21 10:26 Antibiotics) Anaphylaxis [SULFA (SULFONAMIDE ANTIBIOTICS)] Home Medications Medication Instructions Recorded Confirmed Last Taken Type albuterol sulfate 90 mcg/actuation 2 puff INHALATION Q6H PRN 09/23/20 05/25/21 05/31/21 History aerosol inhaler (Ventolin HFA) cholecalciferol (vitamin D3) 50 50 mcg PO DAILY 09/23/20 05/25/21 03/30/21 History mcg (2,000 unit) capsule lamotrigine 25 mg tablet 50 mg PO BEDTIME tab 09/23/20 05/25/21 03/30/21 History melatonin 10 mg tablet 10 mg PO BEDTIME 03/31/21 05/25/21 03/30/21 History olanzapine 7.5 mg tablet 1 tab PO BEDTIME 03/31/21 05/25/21 03/30/21 History tiotropium 2.5 mcg-olodaterol 2.5 2 puff INHALATION DAILY 03/31/21 05/25/21 05/31/21 History mcg/actuation mist for inhalation (Stiolto Respimat) Exam Exam Date and Time: May 28, 2021 1007 Height,Weight and Vital Signs: Height 5 ft 1 in Weight 81.647 kg Pertinent Lab Results Pertinent Lab Results: Laboratory Tests 05/03/21 05/03/21 05:33 05:33 WBC 18.9 H Hgb 10.3 L Hct 33.3 L Plt Count 312 Sodium 142 Potassium 4.3 Chloride 106 Carbon Dioxide 26 BUN 34 H Creatinine 1.75 H Narrative Narrative: ECHO 04/2021 Conclusions: - Limited echo for assessment of mitral valve. ? - High gradients are noted across the MV with planimetry area not in the severe range. Likely moderate to severe MS. We will ? ? ? arrange JOHNNY to assess this further.? - Normal biventricular function. ? ? EKG 04/2021 Vent. Rate : 078 BPM ? ? Atrial Rate : 078 BPM ?? P-R Int : 172 ms? QRS Dur : 074 ms ? ? QT Int : 396 ms ? ? ? P-R-T Axes : 060 069 053 degrees ?? QTc Int : 451 ms ? Normal sinus rhythm Normal ECG When compared with ECG of 31-MAR-2021 10:46, Sinus rhythm has replaced Atrial fibrillation Vent. rate has decreased BY [address] no longer depressed in Inferior leads ST no longer depressed in Anterolateral leads Assessment and Plan Assessment Anesthesia Assessment: Chart Reviewed Documented by User: Masood Ryan MD 05/31/21 15:06 HPI - Anesthesia Eval Consult details Narrative: 75yo F for Transesophageal Echo and Cardioversion Eliquis for afib Hx sarcoid, ? 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 Family/Other Substance use disorder Family history of problems with anesthesia: No Surgical History Surgical History (Updated 05/25/21 @ 10:32 by Mary Kay Leon RN) History of bronchoscopy History of Problems with Anesthesia: No Social History Social History Household Members: None Household Members Other:: daughter lives downstairs Housing: House Are you a primary long term care administrator to a significant other at home: No Do you presently have visiting nurse or other home services: No Patient Tobacco Use Status: Former Tobacco user Quit Date: 2013 Tobacco use type: Cigarette Years Smoked: 50 Second Hand Smoke Exposure: No Advance Directives Date on File: 06/02/16 service: No Current occupational status: retired Current occupational exposures/hazards: No Meds Allergies Allergy/AdvReac Type Severity Reaction Status Date / Time Sulfa (Sulfonamide Allergy Severe RASH, Verified 05/25/21 10:26 Antibiotics) Anaphylaxis [SULFA (SULFONAMIDE ANTIBIOTICS)] Home Medications Medication Instructions Recorded Confirmed Last Taken Type albuterol sulfate 90 mcg/actuation 2 puff INHALATION Q6H PRN 09/23/20 05/25/21 05/31/21 History aerosol inhaler (Ventolin HFA) cholecalciferol (vitamin D3) 50 50 mcg PO DAILY 08/06/1005/25/21 03/30/21 History mcg (2,000 unit) capsule lamotrigine 25 mg tablet 50 mg PO BEDTIME tab 09/23/20 05/25/21 03/30/21 History melatonin 10 mg tablet 10 mg PO BEDTIME 03/31/21 05/25/21 03/30/21 History olanzapine 7.5 mg tablet 1 tab PO BEDTIME 03/31/21 05/25/21 03/30/21 History tiotropium 2.5 mcg-olodaterol 2.5 2 puff INHALATION DAILY 03/31/21 05/25/21 05/31/21 History mcg/actuation mist for inhalation (Stiolto Respimat) Exam Airway Mallampati Class: III Neck ROM: Full Partial: Upper Loose/Missing/Broken Teeth: Yes Heart: Irregular Lungs: b/l breath sounds Assessment and Plan Assessment Anesthesia Assessment: Anesthesia Plan Discussed Final Anesthetic Review Family History of Problems with Anesthesia: No History of Problems with Anesthesia: No NPO: Yes ASA Class: III Final Preanesthetic Review: Meds/Allgs Chart Reviewed, Consent Obtained/Reviewed and Anes Risks/Benef Reviewed Patient Risk: High Procedure Risk: Intermediate Anesthetic Plan Anesthetic Plan: MAC: Disposition: Standard PACU
--- NOTE | 2021-05-31 | ECG_ITS ---
Test Reason : POST CARDIOVERSION Blood Pressure : / mmHG Vent. Rate : 080 BPM Atrial Rate : 080 BPM P-R Int : 178 ms QRS Dur : 078 ms QT Int : 392 ms P-R-T Axes : 048 064 048 degrees QTc Int : 452 ms Sinus rhythm with Premature atrial complexes Otherwise normal ECG When compared with ECG of 20-APR-2021 11:18, Premature atrial complexes are now Present Referred By: Juan Carlos Hawkins Electronically Signed By:Juan Carlos Hawkins
--- NOTE | 2021-05-31 11:12 | PC.NURSE ---
md wilson by bedside.
[2021-05-31 11:15] VITALS: BP 115/81; PULSE 102; RESP 24; TEMP 36.3; O2SAT 98
[2021-05-31] MEDS: Lactated Ringers 1,000 ML 50 ML IVCONT (11:36)
--- NOTE | 2021-05-31 12:30 | CA_ITS ---
Transesophageal Echocardiogram Patient (Last, First, Middle): Nikki Borjas J Gender: Female Date of : 1945 Age: 75 Procedure Date: 05/31/2021 Procedure Type: Transesophageal Echocardiogram Location: [facility] Height: 154.94 cm Weight: 81. kg BSA: 1.80 m2 Heart Rate: bpm BP: 122 / 64 mmHg Sammying Machine Operator: CATRINA Referring MD: Juan Carlos Hawkins MD Symptoms: mitral stenosis Conclusion: ??? Normal left ventricular size and systolic function. The visually estimated ejection fraction is between 55-60%. ??? Normal right ventricular cavity size and systolic function. ??? There is severe mitral annular calcification. There is moderate mitral valve regurgitation. The mitral regurgitation jet is directed posteriorly. There is moderate mitral valve stenosis. Findings Left Ventricle Normal left ventricular size and systolic function. The visually estimated ejection fraction is between 55-60%. There is no evidence of regional wall motion abnormalities. Diastolic function is indeterminate on the basis of available data. Right Ventricle Normal right ventricular cavity size and systolic function. Atria There is no evidence of a thrombus in the left atrial appendage. Aortic Valve Normal aortic valve structure and function. Mitral Valve There is severe mitral annular calcification. There is moderate mitral valve regurgitation. The mitral regurgitation jet is directed posteriorly. There is moderate mitral valve stenosis. MG across mitral valve of 9-10 mm Hg at HR 94 beats/min. Pulmonic Valve Normal pulmonic valve structure and function. There is trace pulmonic valve regurgitation. Tricuspid Valve Normal tricuspid valve structure and function. There is moderate tricuspid valve regurgitation. Great Vessels Small plaque is seen in the descending thoracic aorta. Venous The inferior vena cava was not well visualized. Pericardium/Pleural There is no evidence of pericardial effusion. Measurements Mitral Valve MV VTI: 0.54 MV Pk Abel: 2.09 MV Mn Abel: 1.38 MV Pk Grad: 17.00 MV Mn Grad: 9.00 MR Vol - PW Dopp: 47.16 MR VTI: 1.31 MR ERO: 36.00 MR Alias Abel: 0.37 MR RAD: 0.80 Updated by Juan Carlos Hawkins on 02:04 PM with Status of Final Juan Carlos Hawkins MD electronically signed on 06/02/2021 2:04:59 PM with status of Final
[2021-05-31 13:29] VITALS: BP 99/54; PULSE 78; RESP 16; TEMP 36.3; O2SAT 100
--- NOTE | 2021-05-31 13:29 | MHC.SHP ---
Pre-Procedural Eval Section A Date of Service: 05/31/21 The patient is an INPATIENT: No The History & Physical has been completed within 30 days and I have reviewed it.: Yes Section B Chief Complaint: rheumatic mitral stenosis Details of Present Illness: CHF and MS by TTE. Also has Afib. Here for JOHNNY +/- CV. Allergies: Allergies Allergy/AdvReac Type Severity Reaction Status Date / Time Sulfa (Sulfonamide Allergy Severe RASH, Verified 05/25/21 10:26 Antibiotics) Anaphylaxis [SULFA (SULFONAMIDE ANTIBIOTICS)] Plan Diagnosis/Plan: Unchanged I have reviewed the history and physical and performed a pertinent physical examination on my patient. No changes have occurred unless specified.
--- NOTE | 2021-05-31 13:30 | P.PNCAR_ITS ---
Cardioversion Procedure Note Cardioversion Date of Procedure: 05/31/21 Ordering Provider: Juan Carlos Hawkins MD Performing Provider: Juan Carlos Hawkins MD Indication for Procedure: mitral stenosis, Afib Pre-Op Diagnosis: MS, Afib Post-Op Diagnosis: Afib Performed with Transesophageal Echo: Yes JOHNNY findings (if JOHNNY Performed): No clot in the CAM[place], mild echocontrast in the LA. History: 75 female with admission with Afib and CHF. Echo has raised concern for mitral stenosis and she is here for JOHNNY to assess the mitral valve and perform CV. Consent: Verbal and Written consent was obtained from the patient before starting. The patient was made aware of the risk of stroke and risks associated with anest hesia. Procedure: After consent obtained, defib pads were attached and the patient was sedated by the anesthesia team. Once adequate sedation achieved, a single synchronized shock of 200 J was given to the patient which converted her to sinus rhythm. Complications: None Impression: Successful cardioversion. Recommendations: Continue meds as before. Eliquis must not be interrupted in the next 6 weeks.
[2021-05-31 13:34] VITALS: BP 99/48; PULSE 79; RESP 16; O2SAT 100
[2021-05-31 13:47] VITALS: BP 107/53; PULSE 81; RESP 17; O2SAT 98
== END 2021-05-31 15:05 | disposition home or self-care (01) ==
PROVIDERS: PCP Nurse Practitioner Family; Visit Provider Internal Medicine Cardiovascular Disease
PROC: (CPT 93312; principal; 2021-05-31 12:30)
PROC: 5A2204Z Restoration of Cardiac Rhythm, Single (ICD-10-PCS; 2021-05-31 12:30)
DX: I05.0 Rheumatic mitral stenosis (principal); I11.0 Hypertensive heart disease with heart failure; I50.30 Unspecified diastolic (congestive) heart failure; I48.91 Unspecified atrial fibrillation; J44.9 Chronic obstructive pulmonary disease, unspecified; Z79.01 Long term (current) use of anticoagulants; Z79.899 Other long term (current) drug therapy; Z88.2 Allergy status to sulfonamides
CPT/HCPCS: 92960; 93005; 93312; J2250; J2370; J3010

== ENCOUNTER 2021-06-01 10:47 | Inpatient (IN) | payer MEDICARE, MEDICAID, SELFPAY ==
[2021-06-01] VITALS (9 sets, daily range): BP systolic 114–163; BP diastolic 56–81; PULSE 76–101; RESP 14–24; TEMP 36.1–37.1; O2SAT 87–100; BMI 33.8
--- NOTE | ~2021-06-01 | XR_ITS ---
EXAMINATION: XR CHEST CLINICAL INFORMATION: Dyspnea COMPARISON: Previous chest x-rays most recent March and April [address] September TECHNIQUE: Frontal view of the chest was obtained. FINDINGS: The cardiac silhouette is slightly enlarged. There is pulmonary venous infusion and increased perihilar markings. There are small bilateral pleural findings are questionable for mild CHF. There are postsurgical changes with surgical yvette seen projecting over the right hilar there is an increasing the right lobe. It is uncertain whether this represents loculated pleural fluid or could represent a chest wall mass. There are degenerative changes of the spine. XR/XR chest 1V IMPRESSION: Question mild CHF. Increasing pleural-based density adjacent to the right upper lobe. It is uncertain whether this represents a loculated pleural effusion or a chest wall mass. This could be better evaluated with chest CT.
--- NOTE | ~2021-06-01 | XR_ITS ---
EXAMINATION: XR CHEST CLINICAL INFORMATION: Hypertension. Concern for an infection COMPARISON: Chest x-ray 06/01/2021. CT of chest 06/01/2021 TECHNIQUE: Frontal portable view of the chest was obtained. 1440 hours FINDINGS: Pleural-based density over the right lateral upper chest seen on prior studies has resolved. There is minimal blunting of the costophrenic angles. Small residual pleural effusion. The previously seen pulmonary vascular congestion has resolved. No focal consolidation. Surgical suture line in the right midlung. Heart size is normal. Cardiac and mediastinal contours are normal. There are calcifications of the thoracic aorta. XR/XR chest 1V IMPRESSION: Interval resolution of a pleural-based density of the right lateral chest seen on prior study 06/01/2021. Decreased pleural effusions with minimal blunting of costophrenic angles remaining. Resolved pulmonary vascular congestion. No acute airspace disease.
--- NOTE | ~2021-06-01 | CT_ITS ---
EXAMINATION: CT CHEST WITHOUT CONTRAST CLINICAL INFORMATION: Dyspnea COMPARISON: Chest radiograph 06/01/2021, CT abdomen 03/31/2021, CT chest 09/30/2019 TECHNIQUE: Multidetector volumetric CT imaging of the chest was done. Axial MIP volume rendering provided. Sagittal and coronal reformatted images were obtained. This CT examination was performed using dose optimization techniques as appropriate, variously including the following: *Automated exposure control *Adjustment of mA and/or kV according to patient size (this includes techniques or standardized protocols for targeted exams where dose is matched to indication/reason for exam; i.e. extremities or head) *Use of iterative reconstruction technique DLP: 260 mGy-cm FINDINGS: LUNGS AND PLEURA: There is a crescentic pleural fluid collection in the right upper lobe posterolaterally corresponding to the abnormality seen on the chest radiograph. This measures simple fluid density and is consistent with a small loculated effusion. A small pleural effusion is present dependently at the right lung base. A tiny left pleural effusion is seen. Since the prior study of 09/30/2019 and there is developed mild increase in interstitial markings as well as thickened peripheral septations (Darío B lines). These findings are suggestive of CHF with interstitial edema as suspected from the chest radiograph. Scattered bullous are present suggesting some emphysematous changes. Postoperative changes with scar are again seen in the right midlung, which are now significantly changed. MEDIASTINUM: Precarinal lymph node has increased in size from 1.7 x 2.1 cm (prior 3:22 2.1 x 2.6 cm (5:163). A pretracheal node has also increased in size from 1.3 to 1.5 cm (5:108). No pericardial effusion. Heart size normal. No aortic aneurysm. Coronary calcifications are seen. Visualized thyroid is unremarkable. AXILLA: No lymphadenopathy. UPPER ABDOMEN: A 5 cm benign right upper pole renal cyst is again seen which needs no further imaging or follow-up. OSSEOUS STRUCTURES: Unremarkable. CT/CT chest wo con IMPRESSION: The abnormality seen on the chest radiograph today is loculated simple pleural fluid. Bilateral pleural effusions are present along with increased interstitial markings consistent with CHF with interstitial edema. Other findings as described above including mediastinal adenopathy. Fleischner guidelines were followed.
--- NOTE | 2021-06-01 11:15 | ECG_ITS ---
Test Reason : cp/diff breathing Blood Pressure : / mmHG Vent. Rate : 094 BPM Atrial Rate : 094 BPM P-R Int : 158 ms QRS Dur : 080 ms QT Int : 362 ms P-R-T Axes : 034 052 039 degrees QTc Int : 452 ms Sinus rhythm with Premature atrial complexes Otherwise normal ECG When compared with ECG of 31-MAY-2021 13:37, No significant change was found Referred By: Generic ED Physician Electronically Signed By:Juan Carlos Hawkins
[2021-06-01 11:30] LABS: MANUAL DIFF FLAG NO
--- NOTE | 2021-06-01 11:33 | ED_ITS ---
HPI - SOB/Dyspnea General Chief Complaint: Dyspnea Stated Complaint: diff breathing Time Seen by Provider: 06/01/21 11:30 Source: patient, family and old records reviewed Mode of arrival: ambulatory Limitations: no limitations History of Present Illness HPI Narrative: s/p cardioversion on 05/31 - JOHNNY no clot in CAM[place], 200J x 1 cardioverted remain on eliquis went to make her bed and walk around 9am - became very fatigued, short of breath, felt her heart racing. Took all of her medications, did miss lasix yesterday. MD elicited complaint: shortness of breath Pertinent past history: other (afib on xarelto) Onset (ago): hour(s) (9am today) Context: recent illness Timing: intermittent Severity: moderate Exacerbating factors: lying flat and exertion Relieving factors: rest and upright position Known history of: congestive heart failure Associated symptoms: chest pain and palpitations Treatment prior to arrival: none Related Data Home Medications Medication Instructions Recorded Confirmed albuterol sulfate 90 mcg/actuation 2 puff INHALATION Q6H PRN 09/23/20 06/01/21 aerosol inhaler (Ventolin HFA) cholecalciferol (vitamin D3) 50 50 mcg PO DAILY 09/23/20 06/01/21 mcg (2,000 unit) capsule lamotrigine 25 mg tablet 50 mg PO BEDTIME tab 09/23/20 06/01/21 melatonin 10 mg tablet 10 mg PO BEDTIME 03/31/21 06/01/21 olanzapine 7.5 mg tablet 1 tab PO BEDTIME 03/31/21 06/01/21 tiotropium 2.5 mcg-olodaterol 2.5 2 puff INHALATION DAILY 03/31/21 06/01/21 mcg/actuation mist for inhalation (Stiolto Respimat) Previous Rx's Medication Instructions Recorded simvastatin 20 mg tablet 20 mg PO BEDTIME #90 tab 02/08/21 apixaban 5 mg tablet (Eliquis) 5 mg PO BID 30 Days #60 tab 05/14/21 metoprolol succinate 50 mg 50 mg PO DAILY #30 tab 05/14/21 tablet,extended release 24 hr furosemide 20 mg tablet (Lasix) 20 mg PO DAILY #30 tab 05/28/21 Allergies Allergy/AdvReac Type Severity Reaction Status Date / Time Sulfa (Sulfonamide Allergy Severe RASH, Verified 06/01/21 11:19 Antibiotics) Anaphylaxis [SULFA (SULFONAMIDE ANTIBIOTICS)] Review of Systems Review of Systems: Constitutional : No Fever, No Chills ENT/Mouth : No sore throat, No Rhinorrhea, No Swallowing Difficulty Eyes: No Eye Pain, No Swelling, No Redness Cardiovascular : pos Chest Pain, positive SOB, No Orthopnea, no Edema, pos palpitations Respiratory : No Cough, No Sputum, No Wheezing, positive dyspnea Gastrointestinal : No Nausea, No Vomiting, No Diarrhea, No abdominal Pain, No Hematochezia, No Melena Genitourinary : No Dysuria, No Urinary Frequency, No Hematuria Musculoskeletal : No joint pain, No Myalgias Skin : No Skin Lesions, No rash Neuro : No Weakness, No Numbness, No Dizziness, No Headache Psych : No Anxiety/Panic, No Depression Heme/Lymph: No Bruising, No Lymphadenopathy Endocrine : No Polyuria, No Polydipsia All other systems reviewed and are negative [facility] Past Medical History Attestation statement: The following information was validated with the patient. 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 Family/Other Substance use disorder Social History Social History Household Members: None Household Members Other:: daughter lives downstairs Housing: House Are you a primary childbirth and infant care teacher to a significant other at home: No Do you presently have visiting nurse or other home services: No Patient Tobacco Use Status: Former Tobacco user Quit Date: 2013 Tobacco use type: Cigarette Years Smoked: 50 Second Hand Smoke Exposure: No Advance Directives: Yes Advance Directives on File: Yes Advance Directives Date on File: 04/26/21 service: No Current occupational status: retired Current occupational exposures/hazards: No Physical Exam Vital Signs: Vital Signs: Last Vital Signs Temp 97 F 06/01/21 11:16 Pulse 79 06/01/21 15:06 Resp 19 06/01/21 15:06 BP 139/69 06/01/21 15:06 Pulse Ox 97 06/01/21 15:06 BMI result Body Mass Index 33.8 Appearance: Alert. Oriented X3. No acute distress. Eyes: Pupils equal, round and reactive to light. ENT: Pharynx normal. Neck: Normal inspection. Neck supple. CVS: Normal heart rate and rhythm. Pulses normal. Respiratory: No respiratory distress. Breath sounds end exp wheezes noted, rales heard at bases Abdomen: Soft and nontender. Skin: Skin warm and dry. Normal skin color. Normal skin turgor. Extremities: No lower extremity edema. No calf ttp Neuro: Oriented X 3. No motor deficit. No sensory deficit. Course Course Course Narrative: CT chest ordered for better evaluation of lungs 87% on RA feels no better after xopenex IV lasix ordered Dr. Hawkins aware repeat trop no sig change MDM - SOB/Dyspnea MDM Narrative Medical decision making narrative: 75 yo female with hx of COPD, CHF, mitral stenosis, afib on xarelto, HTN, s/p cardioversion for afib yesterday - missed one day of lasix now c/o dyspnea as well as palpitations starting at 9am. Has taken all of her xarelto doubt PE. At this time suspect CHF, pneumonia, doubt ACS but will need two troponins. Hx of COPD will trial xopenex. Lab Data Result diagrams: 06/01/21 11:24 06/01/21 11:24 Labs: Lab Results 06/01/21 06/01/21 06/01/21 Range/Units 11:24 11:24 11:24 WBC 12.9 H (4.8-10.8) X10*3/uL RBC 3.82 L (4.20-5.50) X10*6/uL Hgb 11.4 L (12.0-16.0) g/dl Hct 37.0 (37.0-47.0) % MCV 96.9 (80.0-98.0) fL MCH 29.8 (27.0-33.0) pg MCHC 30.8 L (31.0-35.0) g/dl RDW 14.5 (11.0-16.0) % Plt Count 248 (160-400) X10*3/uL MPV 10.6 (9.4-12.3) fL Immature Gran % (Auto) 0.7 H (0.0-0.4) % Neut % (Auto) 87.4 H (45-73) % Lymph % (Auto) 5.7 L (20-40) % [place] % (Auto) 4.9 (2-11) % Eos % (Auto) 0.8 (0-4) % Baso % (Auto) 0.5 (0-2) % Lymph # (Auto) 0.7 L (1.2-4.9) X10*3/uL [place] # (Auto) 0.6 (0.1-1.2) X10*3/uL Eos # (Auto) 0.1 (0.0-0.4) X10*3/uL Baso # (Auto) 0.1 (0.0-0.2) X10*3/uL Abs Immat Gran (auto) 0.09 H (0.00-0.03) X10*3/uL Absolute Neuts (auto) 11.3 H (2.0-8.3) x10*3/uL Absolute Nucleated RBC 0.000 (0.0-0.012) X10*3/uL Nucleated RBC % (auto) 0.0 (0.0-0.2) /100WBC PT (9.9-13.0) SEC INR (0.9-1.1) APTT (24.1-38.0) SEC Sodium 143 (135-145) mmol/L Potassium 4.5 (3.3-5.1) mmol/L Chloride 107 (96-108) mmol/L Carbon Dioxide 27 (22-29) mmol/L Anion Gap 14 (12-20) BUN 28 H (9-16) mg/dL Creatinine 1.83 H (0.5-1.4) mg/dL Estim Creat Clear Calc 25.6 Estimated GFR 27 Random Glucose 114 (60-115) mg/dL Calcium 10.1 D (8.4-10.2) mg/dL Troponin I High Sens 16.4 (<3.5-17.0) ng/L B-Natriuretic Peptide (<100) pg/mL COVID-19 (KARTHIK) (Negative) COVID-19 Clin Com 04/12/22 04/12/22 04/12/22 Range/Units 12:26 12:26 12:26 WBC (4.8-10.8) X10*3/uL RBC (4.20-5.50) X10*6/uL Hgb (12.0-16.0) g/dl Hct (37.0-47.0) % MCV (80.0-98.0) fL MCH (27.0-33.0) pg MCHC (31.0-35.0) g/dl RDW (11.0-16.0) % Plt Count (160-400) X10*3/uL MPV (9.4-12.3) fL Immature Gran % (Auto) (0.0-0.4) % Neut % (Auto) (45-73) % Lymph % (Auto) (20-40) % [place] % (Auto) (2-11) % Eos % (Auto) (0-4) % Baso % (Auto) (0-2) % Lymph # (Auto) (1.2-4.9) X10*3/uL [place] # (Auto) (0.1-1.2) X10*3/uL Eos # (Auto) (0.0-0.4) X10*3/uL Baso # (Auto) (0.0-0.2) X10*3/uL Abs Immat Gran (auto) (0.00-0.03) X10*3/uL Absolute Neuts (auto) (2.0-8.3) x10*3/uL Absolute Nucleated RBC (0.0-0.012) X10*3/uL Nucleated RBC % (auto) (0.0-0.2) /100WBC PT 16.6 H (9.9-13.0) SEC INR 1.5 H (0.9-1.1) APTT 49.7 H (24.1-38.0) SEC Sodium (135-145) mmol/L Potassium (3.3-5.1) mmol/L Chloride (96-108) mmol/L Carbon Dioxide (22-29) mmol/L Anion Gap (12-20) BUN (9-16) mg/dL Creatinine (0.5-1.4) mg/dL Estim Creat Clear Calc Estimated GFR Random Glucose (60-115) mg/dL Calcium (8.4-10.2) mg/dL Troponin I High Sens (<3.5-17.0) ng/L B-Natriuretic Peptide 457 H (<100) pg/mL COVID-19 (KARTHIK) Negative (Negative) COVID-19 Clin Com See Note 06/01/21 Range/Units 14:41 WBC (4.8-10.8) X10*3/uL RBC (4.20-5.50) X10*6/uL Hgb (12.0-16.0) g/dl Hct (37.0-47.0) % MCV (80.0-98.0) fL MCH (27.0-33.0) pg MCHC (31.0-35.0) g/dl RDW (11.0-16.0) % Plt Count (160-400) X10*3/uL MPV (9.4-12.3) fL Immature Gran % (Auto) (0.0-0.4) % Neut % (Auto) (45-73) % Lymph % (Auto) (20-40) % [place] % (Auto) (2-11) % Eos % (Auto) (0-4) % Baso % (Auto) (0-2) % Lymph # (Auto) (1.2-4.9) X10*3/uL [place] # (Auto) (0.1-1.2) X10*3/uL Eos # (Auto) (0.0-0.4) X10*3/uL Baso # (Auto) (0.0-0.2) X10*3/uL Abs Immat Gran (auto) (0.00-0.03) X10*3/uL Absolute Neuts (auto) (2.0-8.3) x10*3/uL Absolute Nucleated RBC (0.0-0.012) X10*3/uL Nucleated RBC % (auto) (0.0-0.2) /100WBC PT (9.9-13.0) SEC INR (0.9-1.1) APTT (24.1-38.0) SEC Sodium (135-145) mmol/L Potassium (3.3-5.1) mmol/L Chloride (96-108) mmol/L Carbon Dioxide (22-29) mmol/L Anion Gap (12-20) BUN (9-16) mg/dL Creatinine (0.5-1.4) mg/dL Estim Creat Clear Calc Estimated GFR Random Glucose (60-115) mg/dL Calcium (8.4-10.2) mg/dL Troponin I High Sens 20.1 H (<3.5-17.0) ng/L B-Natriuretic Peptide (<100) pg/mL COVID-19 (KARTHIK) (Negative) COVID-19 Clin Com ECG Data Attestation: I personally reviewed and interpreted this ECG as follows: ECG interpretation date: 06/01/21 ECG interpretation time: 11:59 Interpretation: Rate: 94 Rhythm: NSR with PACs Crystal: normal Normal P waves. Normal SANDEEP. Normal QRS complex. ST T wave : normal no ISAURA qTC: normal prior studies: no acute ischemia The study has been interpreted contemporaneously by me. . Discharge Plan Discharge Clinical Impression: Acute dyspnea Acute CHF (congestive heart failure) Qualifiers: Heart failure type: unspecified Qualified Code(s): I50.9 - Heart failure, unspecified Patient Disposition: Admitted As Inpatient
[2021-06-01 11:34] LABS: Basophils Absolute Auto 0.1 X10*3/uL (0.0-0.2); Basophils Percent Auto 0.5 % (0-2); Eosinophils Absolute Auto 0.1 X10*3/uL (0.0-0.4); Eosinophils Percent Auto 0.8 % (0-4); Hemoglobin 11.4 g/dl (12.0-16.0); Imm Gran Abs Auto 0.09 X10*3/uL (0.00-0.03); Imm Gran Pct Auto 0.7 % (0.0-0.4); Lymphocytes Absolute Auto 0.7 X10*3/uL (1.2-4.9); Lymphocytes Percent Auto 5.7 % (20-40); Mean Corpuscular HGB Conc 30.8 g/dl (31.0-35.0); Mean Corpuscular Hemoglobin 29.8 pg (27.0-33.0); Mean Corpuscular Volume 96.9 fL (80.0-98.0); Mean Platelet Volume 10.6 fL (9.4-12.3); Monocytes Absolute Auto 0.6 X10*3/uL (0.1-1.2); Monocytes Percent Auto 4.9 % (2-11); Neutrophils Absolute Auto 11.3 x10*3/uL (2.0-8.3); Neutrophils Percent Auto 87.4 % (45-73); Platelet Count 248 X10*3/uL (160-400); Red Blood Count 3.82 X10*6/uL (4.20-5.50); Red Cell Distribution Width 14.5 % (11.0-16.0); White Blood Count 12.9 X10*3/uL (4.8-10.8)
[2021-06-01 11:47] LABS: Anion Gap 14 (12-20); Blood Urea Nitrogen 28 mg/dL (9-16); Calcium 10.1 mg/dL (8.4-10.2); Carbon Dioxide 27 mmol/L (22-29); Chloride 107 mmol/L (96-108); Creatinine Clr Calc Pharmacy 25.6; Estimated Glomerular Filt Rate 27; Glucose Random 114 mg/dL (60-115); Potassium 4.5 mmol/L (3.3-5.1); Sodium 143 mmol/L (135-145)
[2021-06-01 11:52] LABS: Troponin-I High Sensitivity 16.4 ng/L (<3.5-17.0)
[2021-06-01 12:49] LABS: INTERNATIONAL NORM RATIO 1.5 (0.9-1.1); Prothrombin Time 16.6 SEC (9.9-13.0)
[2021-06-01 12:52] LABS: Partial Thromboplastin Time 49.7 SEC (24.1-38.0)
[2021-06-01 13:03] LABS: COVID-19 Test Negative (Negative); IDNOW Serial# 16C4AD1C
[2021-06-01 13:06] LABS: B Type Natriuretic Peptide 457 pg/mL (<100)
--- NOTE | 2021-06-01 13:21 | PHA.MEDREC ---
Pharmacy Consult ? Medication Reconciliation Pharmacy has completed the medication reconciliation. SPOKE WITH DAUGHTER
[2021-06-01] MEDS: Furosemide 20 MG/2 ML VIAL IVPUSH ×2 (13:35→19:01)
[2021-06-01] MEDS: Acetaminophen 325 MG TABLET 650 MG PO (14:45)
[2021-06-01 15:05] LABS: Troponin-I High Sensitivity 20.1 ng/L (<3.5-17.0)
--- NOTE | 2021-06-01 15:08 | PM.CNCAR ---
History of Present Illness History of Present Illness Date of Service: 06/01/21 Requesting physician: Shruti Vale Chief complaint: SOB, chest heaviness Narrative: 75-year-old female with background history of sarcoidosis, paroxysmal atrial fibrillation, questionable mitral valve stenosis and congestive heart failure. She underwent transesophageal echocardiogram yesterday to assess the mitral valve. Transesophageal echocardiogram showed severe mitral annular calcification moderate mitral valve regurgitation and possibly moderate mitral stenosis. She was cardioverted after that it to sinus rhythm from atrial fibrillation. She went home and was fine overnight but this morning she started feeling some chest pressure and shortness of breath. Preceding the cardioversion she was getting shortness of breath with exertion but not at rest. She had no orthopnea or PND preceding the cardioversion. She was given some fluids by Anesthesia but did not receive a lot of fluids. She is saying she was not feeling well and has no appetite. With these symptoms she came to [facility] and was found to be hypoxic. As she was put on supplemental oxygen and was given IV diuretics. She is feeling somewhat better right now. She is still in sinus rhythm. [facility] Past Medical History Medical History Atrial fibrillation Bipolar 1 disorder COPD (chronic obstructive pulmonary disease) Dyslipidemia HTN (hypertension) Kidney disease Leukocytosis [place] nephropathy Necrotizing granulomatous inflammation of lung Sarcoidosis Vitamin D deficiency Family History Family History Child No Financial Resp No problems noted. Family/Other Substance use disorder Surgical History Surgical History History of bronchoscopy Social History Social History Household Members: None Household Members Other:: daughter lives downstairs Housing: House Are you a primary medical care evaluation specialist to a significant other at home: No Do you presently have visiting nurse or other home services: No Patient Tobacco Use Status: Former Tobacco user Quit Date: 2013 Tobacco use type: Cigarette Years Smoked: 50 Second Hand Smoke Exposure: No Advance Directives: Yes Advance Directives on File: Yes Advance Directives Date on File: 04/26/21 service: No Current occupational status: retired Current occupational exposures/hazards: No Meds Allergies Allergy/AdvReac Type Severity Reaction Status Date / Time Sulfa (Sulfonamide Allergy Severe RASH, Verified 06/01/21 11:19 Antibiotics) Anaphylaxis [SULFA (SULFONAMIDE ANTIBIOTICS)] Active Medications: Current Medications Pharmacy Consult (Consult Rx Perform Med Rec) 1 each MISCELLANE ONCE PRN PRN Reason: Consult order Home Medications Medication Instructions Recorded Confirmed Last Taken Type albuterol sulfate 90 mcg/actuation 2 puff INHALATION Q6H PRN 09/23/20 06/01/21 06/01/21 History aerosol inhaler (Ventolin HFA) cholecalciferol (vitamin D3) 50 50 mcg PO DAILY 09/23/20 06/01/21 06/01/21 History mcg (2,000 unit) capsule lamotrigine 25 mg tablet 50 mg PO BEDTIME tab 09/23/20 06/01/21 06/01/21 History melatonin 10 mg tablet 10 mg PO BEDTIME 03/31/21 06/01/21 06/01/21 History olanzapine 7.5 mg tablet 1 tab PO BEDTIME 03/31/21 06/01/21 06/01/21 History tiotropium 2.5 mcg-olodaterol 2.5 2 puff INHALATION DAILY 03/31/21 06/01/21 06/01/21 History mcg/actuation mist for inhalation (Stiolto Respimat) Physical Exam Vital Signs: Vital Signs: Last Vital Signs Temp 97 F 06/01/21 11:16 Pulse 79 06/01/21 15:06 Resp 19 06/01/21 15:06 BP 139/69 06/01/21 15:06 Pulse Ox 97 06/01/21 15:06 BMI result Body Mass Index 33.8 GENERAL APPEARANCE: in no acute distress, pleasant. On nasal cannula. NECK: no carotid bruit, + jugular venous distention. SKIN: no suspicious lesions, warm and dry. HEART: no murmurs, regular rate and rhythm. LUNGS: Bilateral crackles to lower thirds the lungs. ABDOMEN: soft, nontender. EXTREMITIES: no edema. PERIPHERAL PULSES: equal. NEUROLOGIC: No gross deficits, AAO X 3 Objective Labs and Meds Result diagrams: 06/01/21 11:24 06/01/21 11:24 Lab results: Laboratory Results - last 24 hr 06/01/21 06/01/21 06/01/21 11:24 11:24 11:24 WBC 12.9 H RBC 3.82 L Hgb 11.4 L Hct 37.0 MCV 96.9 MCH 29.8 MCHC 30.8 L RDW 14.5 Plt Count 248 MPV 10.6 Immature Gran % (Auto) 0.7 H Neut % (Auto) 87.4 H Lymph % (Auto) 5.7 L Mcintosh % (Auto) 4.9 Eos % (Auto) 0.8 Baso % (Auto) 0.5 Lymph # (Auto) 0.7 L Mcintosh # (Auto) 0.6 Eos # (Auto) 0.1 Baso # (Auto) 0.1 Abs Immat Gran (auto) 0.09 H Absolute Neuts (auto) 11.3 H Absolute Nucleated RBC 0.000 Nucleated RBC % (auto) 0.0 PT INR APTT Sodium 143 Potassium 4.5 Chloride 107 Carbon Dioxide 27 Anion Gap 14 BUN 28 H Creatinine 1.83 H Estim Creat Clear Calc 25.6 Estimated GFR 27 Random Glucose 114 Calcium 10.1 D Troponin I High Sens 16.4 B-Natriuretic Peptide COVID-19 (KARTHIK) COVID-FOBO 06/01/21 06/01/21 06/01/21 12:26 12:26 12:26 WBC RBC Hgb Hct MCV MCH MCHC RDW Plt Count MPV Immature Gran % (Auto) Neut % (Auto) Lymph % (Auto) Mcintosh % (Auto) Eos % (Auto) Baso % (Auto) Lymph # (Auto) Mcintosh # (Auto) Eos # (Auto) Baso # (Auto) Abs Immat Gran (auto) Absolute Neuts (auto) Absolute Nucleated RBC Nucleated RBC % (auto) PT 16.6 H INR 1.5 H APTT 49.7 H Sodium Potassium Chloride Carbon Dioxide Anion Gap BUN Creatinine Estim Creat Clear Calc Estimated GFR Random Glucose Calcium Troponin I High Sens B-Natriuretic Peptide 457 H COVID-19 (KARTHIK) Negative Doubles [facility] See Note 06/01/21 14:41 WBC RBC Hgb Hct MCV MCH MCHC RDW Plt Count MPV Immature Gran % (Auto) Neut % (Auto) Lymph % (Auto) Mcintosh % (Auto) Eos % (Auto) Baso % (Auto) Lymph # (Auto) Mcintosh # (Auto) Eos # (Auto) Baso # (Auto) Abs Immat Gran (auto) Absolute Neuts (auto) Absolute Nucleated RBC Nucleated RBC % (auto) PT INR APTT Sodium Potassium Chloride Carbon Dioxide Anion Gap BUN Creatinine Estim Creat Clear Calc Estimated GFR Random Glucose Calcium Troponin I High Sens 20.1 H B-Natriuretic Peptide COVID-19 (KARTHIK) COVID-19 Clin Com Imaging Radiologist's impression: Impressions Chest X-Ray 06/01/21 11:53 IMPRESSION: Question mild CHF. Increasing pleural-based density adjacent to the right upper lobe. It is uncertain whether this represents a loculated pleural effusion or a chest wall mass. This could be better evaluated with chest CT. Assessment and Plan (1) HTN (hypertension): Status: Acute (2) Atrial fibrillation: Status: Acute (3) Acute CHF (congestive heart failure): Qualifiers: Heart failure type: unspecified Qualified Code(s): I50.9 - Heart failure, unspecified Status: Acute Plan Pleasant 75-year-old female who has background history of sarcoidosis and paroxysmal atrial fibrillation was presenting for shortness of breath. She underwent cardioversion yesterday. She is still in sinus rhythm on this stage. Clinically she is volume overloaded. I think she is here likely due to congestive heart failure other possibility is aspiration after JOHNNY yesterday. We should monitor her closely for fevers and signs of inflammation. I agree with IV diuretics at this stage. She should not have interruption of her Eliquis because she just got cardioverted yesterday and is high risk for stroke. Her mitral valve disease he has calcific mitral stenosis which is likely moderate along with moderate mitral valve regurgitation. I think the options for calcific mitral disease are limited. In any case currently we do not have any severe valvular involvement and I think she was at a delicate spot from atrial fibrillation and may be due to some fluids and cardioversion she developed congestive heart failure. In any case I think we diurese her for now. I am adding lisinopril 5 mg because her blood pressure is elevated. Will monitor creatinine closely. Thank you for allowing me to participate in the care of your patient. Please feel free to contact me if you have any questions. Procedures Date of Service Date of Service: 06/01/21
--- NOTE | 2021-06-01 16:24 | P.HPHOSP_ITS ---
History of Present Illness Date of Service: 06/01/21 Chief Complaint: Shortness of breath, chest heaviness A 75 years old lady with PMH of CHF, mitral stenosis, AFib among others who presents to the hospital with a complaint of shortness of breath and chest heaviness for 1 day prior to admission. The patient reports that she was doing well yesterday morning but she came to the hospital for a scheduled cardioversion procedure for atrial fibrillation. During the procedure she received IV fluid and was asked to hold Lasix after going back home. She started to his shortness of breath and increase edema in lower extremities by the end of the day which was worsened this morning. She came to the emergency were her oxygen room air was fine to be 87. Chest x-ray showed chest congestion. With elevated BNP. Started on IV Lasix and admitted to the hospital for further treatment. Review of Systems Review of Systems: No fever, chills or weakness Reported chest heaviness with increased edema and lower extremities Dyspnea on exertion with no coughing No abdominal pain, nausea or vomiting No urinary symptoms No any rash or wounds PMFSH Medical History Atrial fibrillation Bipolar 1 disorder COPD (chronic obstructive pulmonary disease) Dyslipidemia HTN (hypertension) Kidney disease Leukocytosis [place] nephropathy Necrotizing granulomatous inflammation of lung Sarcoidosis Vitamin D deficiency Family History Child No Financial Resp No problems noted. Family/Other Substance use disorder Surgical History History of bronchoscopy Social History Household Members: None Household Members Other:: daughter lives downstairs Housing: House Are you a primary child care centre director to a significant other at home: No Do you presently have visiting nurse or other home services: No Patient Tobacco Use Status: Former Tobacco user Quit Date: 2013 Tobacco use type: Cigarette Years Smoked: 50 Second Hand Smoke Exposure: No Advance Directives: Yes Advance Directives on File: Yes Advance Directives Date on File: 04/26/21 service: No Current occupational status: retired Current occupational exposures/hazards: No Meds Allergies Allergy/AdvReac Type Severity Reaction Status Date / Time Sulfa (Sulfonamide Allergy Severe RASH, Verified 06/01/21 11:19 Antibiotics) Anaphylaxis [SULFA (SULFONAMIDE ANTIBIOTICS)] Active Medications: Current Medications Acetaminophen (Acetaminophen 325 Mg Tablet) 650 mg PO Q6H PRN PRN Reason: Pain, Mild (Pain Scale 1-3) Furosemide (Furosemide 20 Mg/2 Ml Vial) 20 mg IVPUSH BID@0900,1800 KENNEY; Protocol Ondansetron HCl (Ondansetron Hcl 4 Mg/2 Ml Vial) 4 mg IVPUSH Q8H PRN PRN Reason: Nausea and Vomiting Pharmacy Consult (Consult Rx Perform Med Rec) 1 each MISCELLANE ONCE PRN PRN Reason: Consult order Sodium Chloride (0.9 % Sodium Chloride Flush 3 Ml Syringe) 3 ml IVFLUSH QSHIFT [facility] Home Medications Medication Instructions Recorded Confirmed Last Taken Type albuterol sulfate 90 mcg/actuation 2 puff INHALATION Q6H PRN 09/23/20 06/01/21 06/01/21 History aerosol inhaler (Ventolin HFA) cholecalciferol (vitamin D3) 50 50 mcg PO DAILY 09/23/20 06/01/21 06/01/21 History mcg (2,000 unit) capsule lamotrigine 25 mg tablet 50 mg PO BEDTIME tab 09/23/20 06/01/21 06/01/21 History melatonin 10 mg tablet 10 mg PO BEDTIME 03/31/21 06/01/21 06/01/21 History olanzapine 7.5 mg tablet 1 tab PO BEDTIME 03/31/21 06/01/21 06/01/21 History tiotropium 2.5 mcg-olodaterol 2.5 2 puff INHALATION DAILY 03/31/21 06/01/21 06/01/21 History mcg/actuation mist for inhalation (Stiolto Respimat) Physical Exam Vital Signs and Narrative: Vital Signs: Last Vital Signs Temp 97 F 06/01/21 11:16 Pulse 79 06/01/21 15:06 Resp 19 06/01/21 15:06 BP 139/69 06/01/21 15:06 Pulse Ox 87 L 06/01/21 15:19 BMI result Body Mass Index 33.8 Const: Other: Constitutional : Alert, oriented, not in distress Neck : Normal inspection, Supple Cardiovascular : RRR, no JVP, +1 bilateral lower extremity edema Respiratory : fair bilateral air entry, basal bilateral fine crackles, no wheezes or rhonchi, oxygen supplement Gastrointestinal: soft, lax, Normal bowel sounds, Non tender Skin : Warm, Dry Neurological : Alert & oriented x3, No focal deficit , CN 2-12 within normal Results Labs CBC and Chem 7: 06/01/21 11:24 06/01/21 11:24 Labs: Laboratory Results - last 24 hr 06/01/21 06/01/21 06/01/21 11:24 11:24 11:24 MCV 96.9 MCH 29.8 MCHC 30.8 L RDW 14.5 Plt Count 248 MPV 10.6 Immature Gran % (Auto) 0.7 H Neut % (Auto) 87.4 H Lymph % (Auto) 5.7 L [place] % (Auto) 4.9 Eos % (Auto) 0.8 Baso % (Auto) 0.5 Lymph # (Auto) 0.7 L [place] # (Auto) 0.6 Eos # (Auto) 0.1 Baso # (Auto) 0.1 Abs Immat Gran (auto) 0.09 H Absolute Neuts (auto) 11.3 H Absolute Nucleated RBC 0.000 Nucleated RBC % (auto) 0.0 PT INR APTT Anion Gap 14 Estim Creat Clear Calc 25.6 Estimated GFR 27 Random Glucose 114 Calcium 10.1 D Troponin I High Sens 16.4 B-Natriuretic Peptide COVID-19 (KARTHIK) COVID-19 Clin Com 06/01/21 06/01/21 06/01/21 12:26 12:26 12:26 MCV MCH MCHC RDW Plt Count MPV Immature Gran % (Auto) Neut % (Auto) Lymph % (Auto) [place] % (Auto) Eos % (Auto) Baso % (Auto) Lymph # (Auto) [place] # (Auto) Eos # (Auto) Baso # (Auto) Abs Immat Gran (auto) Absolute Neuts (auto) Absolute Nucleated RBC Nucleated RBC % (auto) PT 16.6 H INR 1.5 H APTT 49.7 H Anion Gap Estim Creat Clear Calc Estimated GFR Random Glucose Calcium Troponin I High Sens B-Natriuretic Peptide 457 H COVID-19 (KARTHIK) Negative COVID-19 Clin Com See Note 06/01/21 14:41 MCV MCH MCHC RDW Plt Count MPV Immature Gran % (Auto) Neut % (Auto) Lymph % (Auto) [place] % (Auto) Eos % (Auto) Baso % (Auto) Lymph # (Auto) [place] # (Auto) Eos # (Auto) Baso # (Auto) Abs Immat Gran (auto) Absolute Neuts (auto) Absolute Nucleated RBC Nucleated RBC % (auto) PT INR APTT Anion Gap Estim Creat Clear Calc Estimated GFR Random Glucose Calcium Troponin I High Sens 20.1 H B-Natriuretic Peptide COVID-19 (KARTHIK) COVID-19 Clin Com Imaging Radiologist's Impressions: Impressions Chest X-Ray 06/01/21 11:53 IMPRESSION: Question mild CHF. Increasing pleural-based density adjacent to the right upper lobe. It is uncertain whether this represents a loculated pleural effusion or a chest wall mass. This could be better evaluated with chest CT. Chest CT 06/01/21 13:15 IMPRESSION: The abnormality seen on the chest radiograph today is loculated simple pleural fluid. Bilateral pleural effusions are present along with increased interstitial markings consistent with CHF with interstitial edema. Other findings as described above including mediastinal adenopathy. Fleischner guidelines were followed. Assessment and Plan (1) Acute respiratory failure with hypoxia: Status: Acute (2) Acute CHF (congestive heart failure): Qualifiers: Heart failure type: unspecified Qualified Code(s): I50.9 - Heart failure, unspecified Status: Acute (3) Bilateral pleural effusion: Status: Acute (4) Mediastinal lymphadenopathy: Status: Acute Plan A 75 years old lady with PMH of CHF, mitral stenosis, AFib among others who presents to the hospital with a complaint of shortness of breath and chest heaviness for 1 day prior to admission. Acute hypoxic respiratory failure secondary to diastolic CHF exacerbation Pleural effusions CT, see x-ray showed bilateral effusions and increased interstitial markings Elevated BNP O2 dropped to 87 on room air Start IV Lasix 20 mg b.i.d. Follow BNP, intake and output Cardiology consult Mediastinal lymphadenopathy CT scan reporting?Precarinal lymph node has increased in size from 1.7 x 2.1 cm (prior 3:22 2.1 x 2.6 cm (5:163). A pretracheal node has also increased in size from 1.3 to 1.5 cm? No reported previous evaluation To refer to PCP for eval Atrial fibrillation continue Eliquis, metoprolol and Cardizem CKD stage 3 Follow BMP on urine output Continue the rest of her home medications ?DVT PPX Eliquis Patient's will need 2 days of inpatient treatment for CHF exacerbation to prevent further deconditioning given chance of decompensation. Quality Stroke Does the patient have a stroke diagnosis?: No VTE Prior VTE?: No VTE Risk Level:: Medical - moderate - high VTE Device Contraindication: Treatment Not Indicated VTE Drug Contraindication: Treatment Not Indicated
--- NOTE | 2021-06-01 19:09 | PC.NURSE ---
Pt medicated per MAR, provided with food/drink per request. VSS, pt denies pain. Daughter at bedside requesting updates regarding plan of care, Tatyana [phone].
[2021-06-01] MEDS: Apixaban 5 MG TABLET PO (21:02)
[2021-06-01] MEDS: Metoprolol Succinate ER 50 MG TAB.ER.24H PO (21:02)
[2021-06-01] MEDS: lisinopriL 5 MG TABLET PO (21:02)
[2021-06-02] VITALS (8 sets, daily range): BP systolic 99–131; BP diastolic 46–68; PULSE 62–88; RESP 15–24; TEMP 36–37.9; O2SAT 92–100; BMI 33.8
[2021-06-02 05:54] LABS: Hemoglobin 10.9 g/dl (12.0-16.0); Mean Corpuscular HGB Conc 31.1 g/dl (31.0-35.0); Mean Corpuscular Volume 96.4 fL (80.0-98.0); Mean Platelet Volume 10.9 fL (9.4-12.3); Platelet Count 216 X10*3/uL (160-400); Red Blood Count 3.63 X10*6/uL (4.20-5.50); Red Cell Distribution Width 14.4 % (11.0-16.0); White Blood Count 11.3 X10*3/uL (4.8-10.8)
[2021-06-02 06:09] LABS: Anion Gap 16 (12-20); Blood Urea Nitrogen 25 mg/dL (9-16); Calcium 9.7 mg/dL (8.4-10.2); Carbon Dioxide 28 mmol/L (22-29); Chloride 105 mmol/L (96-108); Creatinine Clr Calc Pharmacy 26.8; Estimated Glomerular Filt Rate 28; Glucose Random 105 mg/dL (60-115); Potassium 3.8 mmol/L (3.3-5.1); Sodium 145 mmol/L (135-145)
[2021-06-02 06:13] LABS: B Type Natriuretic Peptide 561 pg/mL (<100)
[2021-06-02] MEDS: Furosemide 20 MG/2 ML VIAL IVPUSH ×2 (10:32→17:18)
[2021-06-02] MEDS: Apixaban 5 MG TABLET PO ×2 (10:32→20:28)
[2021-06-02] MEDS: Metoprolol Succinate ER 50 MG TAB.ER.24H PO (10:33)
[2021-06-02] MEDS: lisinopriL 5 MG TABLET PO (10:33)
[2021-06-02] MEDS: 0.9 % Sodium Chloride Flush 3 ML SYRINGE IVFLUSH ×3 (10:33→20:28)
--- NOTE | 2021-06-02 11:44 | P.PNCA_ITS ---
Subjective Subjective Date of Service: 06/02/21 Interval history: Feeling better. Breathing improving. Physical Exam Vital Signs: Last Vital Signs Temp 100.2 F 06/02/21 06:54 Pulse 69 06/02/21 10:31 Resp 18 06/02/21 10:31 BP 115/46 L 06/02/21 10:31 Pulse Ox 99 06/02/21 10:31 BMI result Body Mass Index 33.8 GENERAL APPEARANCE: in no acute distress, pleasant.? On nasal cannula. NECK: no carotid bruit, no significant jugular venous distention. SKIN: no suspicious lesions, warm and dry. HEART: no murmurs, regular rate and rhythm. LUNGS:? basal crackles. ABDOMEN: soft, nontender. EXTREMITIES: no edema. PERIPHERAL PULSES: equal. NEUROLOGIC: No gross deficits, AAO X 3 Objective Labs and Meds Result diagrams: 06/02/21 05:47 06/02/21 05:47 Lab results: Laboratory Results - last 24 hr 06/01/21 06/01/21 06/01/21 11:24 11:24 12:26 WBC RBC Hgb Hct MCV MCH MCHC RDW Plt Count MPV Absolute Nucleated RBC Nucleated RBC % (auto) PT 16.6 H INR 1.5 H APTT 49.7 H Sodium 143 Potassium 4.5 Chloride 107 Carbon Dioxide 27 Anion Gap 14 BUN 28 H Creatinine 1.83 H Estim Creat Clear Calc 25.6 Estimated GFR 27 Random Glucose 114 Calcium 10.1 D Troponin I High Sens 16.4 B-Natriuretic Peptide COVID-19 ([facility]) COVID-19 Clin Com 06/01/21 06/01/21 06/01/21 12:26 12:26 14:41 WBC RBC Hgb Hct MCV MCH MCHC RDW Plt Count MPV Absolute Nucleated RBC Nucleated RBC % (auto) PT INR APTT Sodium Potassium Chloride Carbon Dioxide Anion Gap BUN Creatinine Estim Creat Clear Calc Estimated GFR Random Glucose Calcium Troponin I High Sens 20.1 H B-Natriuretic Peptide 457 H COVID-19 ([facility]ARTHIK) Negative COVID-19 Clin Com See Note 06/02/21 06/02/21 06/02/21 05:47 05:47 05:47 WBC 11.3 H RBC 3.63 L Hgb 10.9 L Hct 35.0 L MCV 96.4 MCH 30.0 MCHC 31.1 RDW 14.4 Plt Count 216 MPV 10.9 Absolute Nucleated RBC 0.000 Nucleated RBC % (auto) 0.0 PT INR APTT Sodium 145 Potassium 3.8 Chloride 105 Carbon Dioxide 28 Anion Gap 16 BUN 25 H Creatinine 1.75 H Estim Creat Clear Calc 26.8 Estimated GFR 28 Random Glucose 105 Calcium 9.7 Troponin I High Sens B-Natriuretic Peptide 561 H COVID-19 ([facility]ARTHIK) COVID-19 Clin Com Imaging Radiologist's impression: Impressions Chest X-Ray 06/01/21 11:53 IMPRESSION: Question mild CHF. Increasing pleural-based density adjacent to the right upper lobe. It is uncertain whether this represents a loculated pleural effusion or a chest wall mass. This could be better evaluated with chest CT. Chest CT 06/01/21 13:15 IMPRESSION: The abnormality seen on the chest radiograph today is loculated simple pleural fluid. Bilateral pleural effusions are present along with increased interstitial markings consistent with CHF with interstitial edema. Other findings as described above including mediastinal adenopathy. Fleischner guidelines were followed. Progress Note: A&P Assessment and plan (1) Acute CHF (congestive heart failure): Status: Acute Plan 75 year old female with calcific mitral valve disease with moderate MS and MR. She had cardioversion on 05/31. On IV diuretics for CHF. Clinically improving. I think continue IV diuretics today. Potentially can be changed to PO Lasix tomorrow. Thank you for allowing me to participate in the care of your patient. Please feel free to contact me if you have any questions. Fall Risk Details Current Medications: Current Medications Acetaminophen (Acetaminophen 325 Mg Tablet) 650 mg PO Q6H PRN PRN Reason: Pain, Mild (Pain Scale 1-3) Albuterol Sulfate (Albuterol Sulfate 90 Mcg 8 Gm Inhaler) 2 puff INHALE Q6H PRN PRN Reason: Wheezing Apixaban (Apixaban 5 Mg Tablet) 5 mg PO BID [facility] Last Admin: 06/02/21 10:32 Dose: 5 mg Documented by: Furosemide (Furosemide 20 Mg/2 Ml Vial) 20 mg IVPUSH BID@0900,1800 [facility]; Protocol Last Admin: 06/02/21 10:32 Dose: 20 mg Documented by: Lamotrigine (Lamotrigine 25 Mg Tablet) 50 mg PO BEDTIME [facility] Lisinopril (Lisinopril 5 Mg Tablet) 5 mg PO DAILY [facility]; Protocol Last Admin: 06/02/21 10:33 Dose: 5 mg Documented by: Metoprolol Succinate (Metoprolol Succinate Er 50 Mg Tab.Er.24h) 50 mg PO DAILY [facility]; Protocol Last Admin: 06/02/21 10:33 Dose: 50 mg Documented by: Olanzapine (Olanzapine 7.5 Mg Tablet) 7.5 mg PO BEDTIME [facility] Ondansetron HCl (Ondansetron Hcl 4 Mg/2 Ml Vial) 4 mg IVPUSH Q8H PRN PRN Reason: Nausea and Vomiting Pharmacy Consult (Consult Rx Perform Med Rec) 1 each MISCELLANE ONCE PRN PRN Reason: Consult order Sodium Chloride (0.9 % Sodium Chloride Flush 3 Ml Syringe) 3 ml IVFLUSH QSHIFT [facility] Last Admin: 06/02/21 10:33 Dose: 3 ml Documented by: Time Spent With Patient Time: Total time spent is greater than 50% in coordination of care (as documented) at patient's floor/unit and/or counseling patient: Progress Note: Quality Stroke Does the patient have a stroke diagnosis?: No Procedures Date of Service Date of Service: 06/02/21
--- NOTE | 2021-06-02 12:38 | MHC.CM.PN ---
MET WITH PT WHOSE DGTER LIVES DOWNSTAIRS PT HAD NO SERVDEIS MASSIEL IS [place] X3 HAS OWN RIDE HOME
--- NOTE | 2021-06-02 13:49 | HO.PM.IMPN ---
Subjective Subjective Date of Service: 06/02/21 Interval History: the patient was seen and evaluated this morning Laying in bed, feels comfortable but still requiring oxygen supplement Reporting improvement shortness of breath No reported other overnight events. Review of Systems No fever, chills or weakness Reported chest heaviness with increased edema and lower extremities Dyspnea on exertion with no coughing No abdominal pain, nausea or vomiting No urinary symptoms No any rash or wounds Physical Exam Vital Signs: Vital Signs: Last Vital Signs Temp 97.7 F 06/02/21 12:00 Pulse 73 06/02/21 12:00 Resp 20 06/02/21 12:00 BP 131/61 06/02/21 12:00 Pulse Ox 100 06/02/21 12:00 BMI result Body Mass Index 33.8 Const: Other: Constitutional : Alert, oriented, not in distress Neck : Normal inspection, Supple Cardiovascular : RRR, no JVP, trace bilateral lower extremity edema Respiratory : fair bilateral air entry, decreased basal bilateral fine crackles, no wheezes or rhonchi, oxygen supplement Gastrointestinal: soft, lax, Normal bowel sounds, Non tender Skin : Warm, Dry Neurological : Alert & oriented x3, No focal deficit , CN 2-12 within normal Objective Data Active Medications Acetaminophen (Acetaminophen 325 Mg Tablet) 650 mg PO Q6H PRN PRN Reason: Pain, Mild (Pain Scale 1-3) Albuterol Sulfate (Albuterol Sulfate 90 Mcg 8 Gm Inhaler) 2 puff INHALE Q6H PRN PRN Reason: Wheezing Apixaban (Apixaban 5 Mg Tablet) 5 mg PO BID [facility] Last Admin: 06/02/21 10:32 Dose: 5 mg Documented by: MELITON Furosemide (Furosemide 20 Mg/2 Ml Vial) 20 mg IVPUSH BID@0900,1800 [facility]; Protocol Last Admin: 06/02/21 10:32 Dose: 20 mg Documented by: MELITON Lamotrigine (Lamotrigine 25 Mg Tablet) 50 mg PO BEDTIME [facility] Lisinopril (Lisinopril 5 Mg Tablet) 5 mg PO DAILY [facility]; Protocol Last Admin: 06/02/21 10:33 Dose: 5 mg Documented by: MELITON Metoprolol Succinate (Metoprolol Succinate Er 50 Mg Tab.Er.24h) 50 mg PO DAILY [facility]; Protocol Last Admin: 06/02/21 10:33 Dose: 50 mg Documented by: MELITON Olanzapine (Olanzapine 7.5 Mg Tablet) 7.5 mg PO BEDTIME [facility] Ondansetron HCl (Ondansetron Hcl 4 Mg/2 Ml Vial) 4 mg IVPUSH Q8H PRN PRN Reason: Nausea and Vomiting Pharmacy Consult (Consult Rx Perform Med Rec) 1 each MISCELLANE ONCE PRN PRN Reason: Consult order Sodium Chloride (0.9 % Sodium Chloride Flush 3 Ml Syringe) 3 ml IVFLUSH QSHIFT [facility] Last Admin: 06/02/21 10:33 Dose: 3 ml Documented by: MELITON Labs CBC & Chem 7: 06/02/21 05:47 06/02/21 05:47 Labs: Laboratory Results - last 24 hr 06/01/21 06/02/21 06/02/21 14:41 05:47 05:47 MCV 96.4 MCH 30.0 MCHC 31.1 RDW 14.4 Plt Count 216 MPV 10.9 Absolute Nucleated RBC 0.000 Nucleated RBC % (auto) 0.0 Anion Gap Estim Creat Clear Calc Estimated GFR Random Glucose Calcium Troponin I High Sens 20.1 H B-Natriuretic Peptide 561 H 06/02/21 05:47 MCV MCH MCHC RDW Plt Count MPV Absolute Nucleated RBC Nucleated RBC % (auto) Anion Gap 16 Estim Creat Clear Calc 26.8 Estimated GFR 28 Random Glucose 105 Calcium 9.7 Troponin I High Sens B-Natriuretic Peptide Assessment and Plan (1) Mediastinal lymphadenopathy: Status: Acute (2) Acute exacerbation of chronic obstructive airways disease: Status: Acute (3) Physical deconditioning: Status: Acute (4) Acute respiratory failure with hypoxia: Status: Acute Plan A 75 years old lady with PMH of CHF, mitral stenosis, AFib among others who presents to the hospital with a complaint of shortness of breath and chest heaviness for 1 day prior to admission. Acute hypoxic respiratory failure secondary to diastolic CHF exacerbation Pleural effusions , no infiltrates on images Monitor BNP trend Wean oxygen down as tolerated Continue IV Lasix 20 mg b.i.d. Follow BNP, intake and output Cardiology input appreciated Mediastinal lymphadenopathy CT scan reporting?Precarinal lymph node has increased in size from 1.7 x 2.1 cm (prior 3:22 2.1 x 2.6 cm (5:163). A pretracheal node has also increased in size from 1.3 to 1.5 cm? No reported previous evaluation To refer to PCP for eval Atrial fibrillation continue Eliquis, metoprolol and Cardizem CKD stage 3 Follow BMP on urine output Hypertension Started on lisinopril for better control ?DVT PPX Eliquis Patient's will need overnight of inpatient treatment for CHF exacerbation to prevent further deconditioning given chance of decompensation. Quality Stroke Does the patient have a stroke diagnosis?: No VTE Prior VTE?: No VTE Risk Level:: Medical - moderate - high VTE Device Contraindication: Treatment Not Indicated VTE Drug Contraindication: Treatment Not Indicated
[2021-06-02] MEDS: OLANZapine 7.5 MG TABLET PO (20:28)
[2021-06-02] MEDS: lamoTRIgine 25 MG TABLET 50 MG PO (20:28)
[2021-06-02] MEDS: Melatonin 3 MG TABLET 6 MG PO (22:34)
--- NOTE | 2021-06-03 02:35 | PC.NURSE ---
Pt requested for sleep med stating she uses Melatonin at home, Dr. Whitaker was notified, Melatonin ordered and given , pt slept fairly after.
[2021-06-03 04:00] VITALS: BP 110/45; PULSE 62; RESP 20; TEMP 37; O2SAT 98
[2021-06-03 06:20] LABS: Hematocrit 34.6 % (37.0-47.0); Hemoglobin 10.7 g/dl (12.0-16.0); Mean Corpuscular HGB Conc 30.9 g/dl (31.0-35.0); Mean Corpuscular Hemoglobin 29.9 pg (27.0-33.0); Mean Corpuscular Volume 96.6 fL (80.0-98.0); Mean Platelet Volume 10.9 fL (9.4-12.3); Platelet Count 189 X10*3/uL (160-400); Red Blood Count 3.58 X10*6/uL (4.20-5.50); Red Cell Distribution Width 14.3 % (11.0-16.0); White Blood Count 9.6 X10*3/uL (4.8-10.8)
[2021-06-03 06:40] LABS: Anion Gap 13 (12-20); B Type Natriuretic Peptide 162 pg/mL (<100); Blood Urea Nitrogen 35 mg/dL (9-16); Calcium 9.6 mg/dL (8.4-10.2); Carbon Dioxide 31 mmol/L (22-29); Chloride 101 mmol/L (96-108); Creatinine Clr Calc Pharmacy 23.1; Estimated Glomerular Filt Rate 24; Glucose Random 105 mg/dL (60-115); Potassium 3.9 mmol/L (3.3-5.1); Sodium 141 mmol/L (135-145)
[2021-06-03 07:31] VITALS: BP 107/57; PULSE 64; RESP 16; TEMP 36.4; O2SAT 98
[2021-06-03] MEDS: lisinopriL 5 MG TABLET PO (10:05)
[2021-06-03] MEDS: Metoprolol Succinate ER 50 MG TAB.ER.24H PO (10:06)
[2021-06-03] MEDS: Apixaban 5 MG TABLET PO ×2 (10:06→20:50)
[2021-06-03] MEDS: 0.9 % Sodium Chloride Flush 3 ML SYRINGE IVFLUSH ×2 (10:06→20:51)
[2021-06-03] MEDS: Furosemide 20 MG/2 ML VIAL IVPUSH (10:06)
[2021-06-03 11:31] VITALS: BP 107/51; PULSE 70; RESP 18; TEMP 36.8; O2SAT 99
--- NOTE | 2021-06-03 13:31 | P.PNCA_ITS ---
Subjective Subjective Date of Service: 06/03/21 Interval history: Feeling better. Still on supplemental oxygen. Physical Exam Vital Signs: Last Vital Signs Temp 98.2 F 06/03/21 11:31 Pulse 70 06/03/21 11:31 Resp 18 06/03/21 11:31 BP 107/51 L 06/03/21 11:31 Pulse Ox 99 06/03/21 11:31 BMI result Body Mass Index 33.8 GENERAL APPEARANCE: in no acute distress, pleasant. NECK: no carotid bruit, no jugular venous distention. SKIN: no suspicious lesions, warm and dry. HEART: no murmurs, regular rate and rhythm. LUNGS: clear to auscultation bilaterally. ABDOMEN: soft, nontender. EXTREMITIES: no edema. PERIPHERAL PULSES: equal. NEUROLOGIC: No gross deficits, AAO X 3 Objective Labs and Meds Result diagrams: 06/03/21 06:01 06/03/21 06:01 Lab results: Laboratory Results - last 24 hr 06/03/21 06/03/21 06/03/21 06:01 06:01 06:01 WBC 9.6 RBC 3.58 L Hgb 10.7 L Hct 34.6 L MCV 96.6 MCH 29.9 MCHC 30.9 L RDW 14.3 Plt Count 189 MPV 10.9 Absolute Nucleated RBC 0.000 Nucleated RBC % (auto) 0.0 Sodium 141 Potassium 3.9 Chloride 101 Carbon Dioxide 31 H Anion Gap 13 BUN 35 H Creatinine 2.03 H Estim Creat Clear Calc 23.1 Estimated GFR 24 Random Glucose 105 Calcium 9.6 B-Natriuretic Peptide 162 H Progress Note: A&P Assessment and plan (1) Acute CHF (congestive heart failure): Status: Acute Plan Pleasant 75 female with moderate mitral stenosis and regurgitation who is presenting for congestive heart failure. She was diuresed and is improving. Creatinine is slightly higher than before but we added lisinopril recently. I am going to stop the IV diuretics at this stage. Will increase her furosemide to 40 mg once a day from tomorrow. We will repeat the creatinine tomorrow and hopefully this will be improving. Please try to titrate the oxygen down to see if she can be weaned off oxygen. Thank you for allowing me to participate in the care of your patient. Please feel free to contact me if you have any questions. Fall Risk Details Current Medications: Current Medications Acetaminophen (Acetaminophen 325 Mg Tablet) 650 mg PO Q6H PRN PRN Reason: Pain, Mild (Pain Scale 1-3) Albuterol Sulfate (Albuterol Sulfate 90 Mcg 8 Gm Inhaler) 2 puff INHALE Q6H PRN PRN Reason: Wheezing Apixaban (Apixaban 5 Mg Tablet) 5 mg PO BID [facility] Last Admin: 06/03/21 10:06 Dose: 5 mg Documented by: Furosemide (Furosemide 20 Mg/2 Ml Vial) 20 mg IVPUSH BID@0900,1800 [facility]; Protocol Last Admin: 06/03/21 10:06 Dose: 20 mg Documented by: Lamotrigine (Lamotrigine 25 Mg Tablet) 50 mg PO BEDTIME [facility] Last Admin: 06/02/21 20:28 Dose: 50 mg Documented by: Lisinopril (Lisinopril 5 Mg Tablet) 5 mg PO DAILY [facility]; Protocol Last Admin: 06/03/21 10:05 Dose: 5 mg Documented by: Melatonin (Melatonin 3 Mg Tablet) 6 mg PO BEDTIME PRN PRN Reason: Sleep Last Admin: 06/02/21 22:34 Dose: 6 mg Documented by: Metoprolol Succinate (Metoprolol Succinate Er 50 Mg Tab.Er.24h) 50 mg PO DAILY [facility]; Protocol Last Admin: 06/03/21 10:06 Dose: 50 mg Documented by: Olanzapine (Olanzapine 7.5 Mg Tablet) 7.5 mg PO BEDTIME [facility] Last Admin: 06/02/21 20:28 Dose: 7.5 mg Documented by: Ondansetron HCl (Ondansetron Hcl 4 Mg/2 Ml Vial) 4 mg IVPUSH Q8H PRN PRN Reason: Nausea and Vomiting Pharmacy Consult (Consult Rx Perform Med Rec) 1 each MISCELLANE ONCE PRN PRN Reason: Consult order Sodium Chloride (0.9 % Sodium Chloride Flush 3 Ml Syringe) 3 ml IVFLUSH QSHIFT [facility] Last Admin: 06/03/21 10:06 Dose: 3 ml Documented by: Time Spent With Patient Time: Total time spent is greater than 50% in coordination of care (as documented) at patient's floor/unit and/or counseling patient: Progress Note: Quality Stroke Does the patient have a stroke diagnosis?: No Procedures Date of Service Date of Service: 06/03/21
--- NOTE | 2021-06-03 14:38 | HO.PM.IMPN ---
Subjective Subjective Date of Service: 06/03/21 Interval History: seen and examined this morning follow up for chf denies sob, cough, chest pain Review of Systems Review of Systems: Yes all other systems are reviewed and are negative Constitutional Constitutional: Denies chills and Denies fever(s) Cardiovascular Cardiovascular: Denies chest pain, Denies palpitations and Denies dyspnea Respiratory Respiratory: Denies cough and Denies dyspnea Endocrine Endocrine: Denies palpitations Physical Exam Vital Signs: Vital Signs: Last Vital Signs Temp 98.2 F 06/03/21 11:31 Pulse 70 06/03/21 11:31 Resp 18 06/03/21 11:31 BP 107/51 L 06/03/21 11:31 Pulse Ox 99 06/03/21 11:31 BMI result Body Mass Index 33.8 Const: General: cooperative, comfortable, no acute distress, alert and awake Nutritional Appearance: overweight Orientation/consciousness: patient oriented x3 Resp: Effort & Inspection: normal respiratory effort and able to speak in complete sentences Auscultation: no rales Cardio: Jugular venous distension: no JVD Rate: regular rate Heart sounds: S1 normal heart sound present and S2 normal heart sound present GI: Inspection: No distended Palpation (GI): Soft to palpation and nontender Neuro: General: patient oriented x3 Extrem: Other: trace edema Objective Data Active Medications Acetaminophen (Acetaminophen 325 Mg Tablet) 650 mg PO Q6H PRN PRN Reason: Pain, Mild (Pain Scale 1-3) Albuterol Sulfate (Albuterol Sulfate 90 Mcg 8 Gm Inhaler) 2 puff INHALE Q6H PRN PRN Reason: Wheezing Apixaban (Apixaban 5 Mg Tablet) 5 mg PO BID [facility] Last Admin: 06/03/21 10:06 Dose: 5 mg Documented by: MALCOLM Furosemide (Furosemide 40 Mg Tablet) 40 mg PO DAILY [facility]; Protocol Lamotrigine (Lamotrigine 25 Mg Tablet) 50 mg PO BEDTIME [facility] Last Admin: 06/02/21 20:28 Dose: 50 mg Documented by: CASTILDina Lisinopril (Lisinopril 5 Mg Tablet) 5 mg PO DAILY [facility]; Protocol Last Admin: 06/03/21 10:05 Dose: 5 mg Documented by: JULIUSMCLMARIA DEL CARMEN Melatonin (Melatonin 3 Mg Tablet) 6 mg PO BEDTIME PRN PRN Reason: Sleep Last Admin: 06/02/21 22:34 Dose: 6 mg Documented by: SHANNAN Metoprolol Succinate (Metoprolol Succinate Er 50 Mg Tab.Er.24h) 50 mg PO DAILY [facility]; Protocol Last Admin: 06/03/21 10:06 Dose: 50 mg Documented by: MALCOLM Olanzapine (Olanzapine 7.5 Mg Tablet) 7.5 mg PO BEDTIME [facility] Last Admin: 06/02/21 20:28 Dose: 7.5 mg Documented by: SHANNAN Ondansetron HCl (Ondansetron Hcl 4 Mg/2 Ml Vial) 4 mg IVPUSH Q8H PRN PRN Reason: Nausea and Vomiting Pharmacy Consult (Consult Rx Perform Med Rec) 1 each MISCELLANE ONCE PRN PRN Reason: Consult order Sodium Chloride (0.9 % Sodium Chloride Flush 3 Ml Syringe) 3 ml IVFLUSH QSHIFT [facility] Last Admin: 06/03/21 10:06 Dose: 3 ml Documented by: MALCOLM Labs CBC & Chem 7: 06/03/21 06:01 06/03/21 06:01 Labs: Laboratory Results - last 24 hr 06/03/21 06/03/21 06/03/21 06:01 06:01 06:01 MCV 96.6 MCH 29.9 MCHC 30.9 L RDW 14.3 Plt Count 189 MPV 10.9 Absolute Nucleated RBC 0.000 Nucleated RBC % (auto) 0.0 Anion Gap 13 Estim Creat Clear Calc 23.1 Estimated GFR 24 Random Glucose 105 Calcium 9.6 B-Natriuretic Peptide 162 H Assessment and Plan (1) Acute CHF (congestive heart failure): Status: Acute Plan A 75 years old lady with PMH of CHF, mitral stenosis, AFib among others who presents to the hospital with a complaint of shortness of breath and chest heaviness for 1 day prior to admission. Acute hypoxic respiratory failure secondary to acute on chronic HFpEF BNP trending down; Is&Os not accurate will transition to po lasix Cardiology input appreciated, continue lisinopril, metoprolol if tolerates po lasix, likely d/c tomorrow wean o2 as tolerated, may need home o2 eval creatinine bumped slightly, likely due to addition of KENZIE, follow BMP Mediastinal lymphadenopathy CT scan reporting?Precarinal lymph node has increased in size from 1.7 x 2.1 cm (prior 3:22 2.1 x 2.6 cm (5:163). A pretracheal node has also increased in size from 1.3 to 1.5 cm? No reported previous evaluation To refer to PCP for eval Atrial fibrillation continue Eliquis, metoprolol and Cardizem CKD stage 3 Follow BMP on urine output Hypertension Started on lisinopril for better control ?DVT PPX Eliquis Patient's will need overnight of inpatient treatment for CHF exacerbation to prevent further deconditioning given chance of decompensation. Quality Stroke Does the patient have a stroke diagnosis?: No VTE Prior VTE?: No VTE Risk Level:: Medical - moderate - high VTE Device Contraindication: Treatment Not Indicated VTE Drug Contraindication: Treatment Not Indicated
[2021-06-03 15:47] VITALS: BP 106/54; PULSE 74; RESP 17; TEMP 36.6; O2SAT 94
[2021-06-03 19:08] VITALS: BP 98/52; PULSE 120; RESP 17; TEMP 36.4; O2SAT 93
[2021-06-03] MEDS: OLANZapine 7.5 MG TABLET PO (20:50)
[2021-06-03] MEDS: lamoTRIgine 25 MG TABLET 50 MG PO (20:50)
[2021-06-04] VITALS (13 sets, daily range): BP systolic 72–108; BP diastolic 40–69; PULSE 74–115; RESP 16–20; TEMP 35.9–36.6; O2SAT 90–100
--- NOTE | 2021-06-04 06:29 | PM.EVENT ---
Event Note Date of Service: 06/04/21 Event Note: Hypotension: Patient had a brief episode of hypotension with systolic blood pressure 72/40 Patient asymptomatic; good peripheral pulses Given 250 cc of normal saline. With improvement in blood pressure to 100/60. Held pt's meds lisinopril, metoprolol, Lasix for now. Monitor vitals closely
[2021-06-04 07:21] LABS: Lactic Acid 0.7 mmol/L (0.5-2.0)
[2021-06-04 07:30] LABS: Anion Gap 15 (12-20); Blood Urea Nitrogen 55 mg/dL (9-16); Carbon Dioxide 25 mmol/L (22-29); Chloride 102 mmol/L (96-108); Creatinine Clr Calc Pharmacy 15.1; Estimated Glomerular Filt Rate 15; Glucose Random 119 mg/dL (60-115); Potassium 4.5 mmol/L (3.3-5.1); Sodium 137 mmol/L (135-145)
[2021-06-04] MEDS: Apixaban 5 MG TABLET PO ×2 (10:06→21:10)
[2021-06-04] MEDS: 0.9 % Sodium Chloride Flush 3 ML SYRINGE IVFLUSH ×2 (10:06→15:12)
[2021-06-04] MEDS: 0.9 % Sodium Chloride 250 ML 500 ML IV (13:45)
--- NOTE | 2021-06-04 14:18 | P.PNIM_ITS ---
Subjective Subjective Date of Service: 06/04/21 Interval History: seen and examined this morning low bp overnight - patient asymptoamtic no sob, no chest pain Review of Systems Review of Systems: Yes all other systems are reviewed and are negative Constitutional Constitutional: Denies chills and Denies fever(s) Cardiovascular Cardiovascular: Denies chest pain, Denies palpitations and Denies dyspnea Respiratory Respiratory: Denies cough and Denies dyspnea Gastrointestinal Gastrointestinal: Denies abdominal pain, Denies nausea and Denies vomiting Endocrine Endocrine: Denies palpitations Physical Exam Vital Signs: Vital Signs: Last Vital Signs Temp 96.7 F L 06/04/21 11:27 Pulse 89 06/04/21 13:36 Resp 20 06/04/21 11:27 BP 80/46 L 06/04/21 13:36 Pulse Ox 97 06/04/21 11:27 BMI result Body Mass Index 33.8 Const: General: cooperative, comfortable, no acute distress, alert and awake Nutritional Appearance: overweight Orientation/consciousness: patient oriented x3 Resp: Effort & Inspection: normal respiratory effort and able to speak in complete sentences Auscultation: no rales Cardio: Jugular venous distension: no JVD Rate: regular rate Heart sounds: S1 normal heart sound present and S2 normal heart sound present GI: Inspection: No distended Palpation (GI): Soft to palpation and nontender Neuro: General: patient oriented x3 Extrem: Other: trace edema Objective Data Active Medications Acetaminophen (Acetaminophen 325 Mg Tablet) 650 mg PO Q6H PRN PRN Reason: Pain, Mild (Pain Scale 1-3) Albuterol Sulfate (Albuterol Sulfate 90 Mcg 8 Gm Inhaler) 2 puff INHALE Q6H PRN PRN Reason: Wheezing Apixaban (Apixaban 5 Mg Tablet) 5 mg PO BID [facility] Last Admin: 06/04/21 10:06 Dose: 5 mg Documented by: SU Lactated Ringer's (Lr) 1,000 mls @ 50 mls/hr IVCONT .Q20H [facility] Stop: 06/04/21 21:44 Lamotrigine (Lamotrigine 25 Mg Tablet) 50 mg PO BEDTIME [facility] Last Admin: 06/03/21 20:50 Dose: 50 mg Documented by: MIKAELA Melatonin (Melatonin 3 Mg Tablet) 6 mg PO BEDTIME PRN PRN Reason: Sleep Last Admin: 06/02/21 22:34 Dose: 6 mg Documented by: SHANNAN Metoprolol Succinate (Metoprolol Succinate Er 50 Mg Tab.Er.24h) 50 mg PO DAILY [facility]; Protocol Last Admin: 06/03/21 10:06 Dose: 50 mg Documented by: MARIA ELENA-MCLEP Olanzapine (Olanzapine 7.5 Mg Tablet) 7.5 mg PO BEDTIME [facility] Last Admin: 06/03/21 20:50 Dose: 7.5 mg Documented by: MIKAELA Ondansetron HCl (Ondansetron Hcl 4 Mg/2 Ml Vial) 4 mg IVPUSH Q8H PRN PRN Reason: Nausea and Vomiting Pharmacy Consult (Consult Rx Perform Med Rec) 1 each MISCELLANE ONCE PRN PRN Reason: Consult order Sodium Chloride (0.9 % Sodium Chloride Flush 3 Ml Syringe) 3 ml IVFLUSH QSHIFT [facility] Last Admin: 06/04/21 10:06 Dose: 3 ml Documented by: SU Labs CBC & Chem 7: 06/03/21 06:01 06/04/21 07:00 Labs: Laboratory Results - last 24 hr 06/04/21 06/04/21 07:00 07:00 Anion Gap 15 Estim Creat Clear Calc 15.1 Estimated GFR 15 Random Glucose 119 H Lactic Acid 0.7 Calcium 9.0 D Assessment and Plan (1) Acute respiratory failure with hypoxia: Status: Acute (2) Acute CHF (congestive heart failure): Status: Acute Plan A 75 years old lady with PMH of CHF, mitral stenosis, AFib among others who presents to the hospital with a complaint of shortness of breath and chest heaviness for 1 day prior to admission. SHARON on CKD3 creatinine up to 3.09 r/t diuresis/starting parvin-i hold nephrotoxins will consult nephrology gentle IVF Follow BMP Acute hypoxic respiratory failure secondary to acute on chronic HFpEF BNP trending down; Is&Os not accurate transitioned to po lasix Cardiology input appreciated wean o2 as tolerated, may need home o2 eval lisinopril and metoprolol started on this admission - creatinine now trending up to 3. will hold for now h/o Hypertension now with hypotension BP low in 80s, pt asymptomatic hold metoprolol, lisinopril gentle IVF Follow BP closely will check UA, CXR ; although afebrile, no leukocytosis to suggest infection at this time (i.e no evidence of sepsis at this time) Mediastinal lymphadenopathy CT scan reporting?Precarinal lymph node has increased in size from 1.7 x 2.1 cm (prior 3:22 2.1 x 2.6 cm (5:163). A pretracheal node has also increased in size from 1.3 to 1.5 cm? No reported previous evaluation To refer to PCP for eval Atrial fibrillation continue Eliquis, metoprolol and Cardizem DVT PPX-Eliquis attending: dr. werner Patient requires ongoing hospitalization for SHARON/hypotension Quality Stroke Does the patient have a stroke diagnosis?: No VTE Prior VTE?: No VTE Risk Level:: Medical - moderate - high VTE Device Contraindication: Treatment Not Indicated VTE Drug Contraindication: Treatment Not Indicated
[2021-06-04] MEDS: Lactated Ringers 500 ML IVCONT (14:36)
--- NOTE | 2021-06-04 14:39 | MHC.CM.PN ---
EMR REVIEWED, PER HOSPITALIST PT IN RENAL FAILURE AND NOT READY FOR D/C AT THIS TIME, ANTIC D/C 1-2 DAYS, REFERRAL PLACED TO [facility] IN ANTIC OF NEED OFR SERVICES, PT ALSO MAY NEED HOME O2 EVAL. CM WILL CONT TO FOLLOW D/C NEEDS, PT HAS DTR FOR TRANSPORT HOME.
[2021-06-04 15:10] LABS: Hematocrit 37.1 % (37.0-47.0); Hemoglobin 11.8 g/dl (12.0-16.0); Mean Corpuscular HGB Conc 31.8 g/dl (31.0-35.0); Mean Corpuscular Hemoglobin 30.1 pg (27.0-33.0); Mean Corpuscular Volume 94.6 fL (80.0-98.0); Mean Platelet Volume 11.3 fL (9.4-12.3); Platelet Count 258 X10*3/uL (160-400); Red Blood Count 3.92 X10*6/uL (4.20-5.50); Red Cell Distribution Width 14.1 % (11.0-16.0); White Blood Count 10.9 X10*3/uL (4.8-10.8)
[2021-06-04 15:27] LABS: Appearance Urine CLEAR; Color Urine YELLOW; Glucose Urine UA NEG (NEG); Leukocyte Esterase Urine 1+ (NEG); Nitrite Urine NEG (NEG); UACC Culture Trigger YES; Urine Blood NEG (NEG); Urine Ketones NEG (NEG); Urine Protein NEG (NEG-TRACE)
[2021-06-04 15:45] LABS: RBC Urine 0-2 /HPF (0); Squamous Epithelial Cell Urine TRACE /LPF; UACC CULT YES
[2021-06-04 15:46] LABS: Bacteria Urine TRACE /LPF; WBC Clumps Urine NOTED
[2021-06-04] MEDS: OLANZapine 7.5 MG TABLET PO (21:10)
[2021-06-04] MEDS: lamoTRIgine 25 MG TABLET 50 MG PO (21:10)
--- NOTE | 2021-06-04 23:33 | PM.PNCARD ---
Subjective Subjective Date of Service: 06/05/21 Interval history: Seen and examined at bedside. No symptoms. SHARON and she was given IVF. Physical Exam Vital Signs: Last Vital Signs Temp 96.9 F 06/04/21 23:27 Pulse 74 06/04/21 23:27 Resp 18 06/04/21 23:27 BP 98/63 06/04/21 23:27 Pulse Ox 99 06/04/21 23:27 BMI result Body Mass Index 33.8 GENERAL APPEARANCE: in no acute distress, pleasant. NECK: no carotid bruit, no jugular venous distention. SKIN: no suspicious lesions, warm and dry. HEART: no murmurs, regular rate and rhythm. LUNGS: clear to auscultation bilaterally. ABDOMEN: soft, nontender. EXTREMITIES: no edema. PERIPHERAL PULSES: equal. NEUROLOGIC: No gross deficits, AAO X 3 Objective Labs and Meds Result diagrams: 06/04/21 14:49 06/04/21 07:00 Lab results: Laboratory Results - last 24 hr 06/04/21 06/04/21 06/04/21 07:00 07:00 14:49 WBC 10.9 H RBC 3.92 L Hgb 11.8 L Hct 37.1 MCV 94.6 MCH 30.1 MCHC 31.8 RDW 14.1 Plt Count 258 D MPV 11.3 Absolute Nucleated RBC 0.000 Nucleated RBC % (auto) 0.0 Sodium 137 Potassium 4.5 Chloride 102 Carbon Dioxide 25 Anion Gap 15 BUN 55 H D Creatinine 3.09 H Estim Creat Clear Calc 15.1 Estimated GFR 15 Random Glucose 119 H Lactic Acid 0.7 Calcium 9.0 D Urine Color Urine Appearance Urine pH Ur Specific [place] Urine Protein Urine Glucose (UA) Urine Ketones Urine Blood Urine Nitrite Ur Leukocyte Esterase Urine RBC Urine WBC Urine WBC Clumps Ur Squamous Epith Cells Urine Bacteria 06/04/21 Unknown WBC RBC Hgb Hct MCV MCH MCHC RDW Plt Count MPV Absolute Nucleated RBC Nucleated RBC % (auto) Sodium Potassium Chloride Carbon Dioxide Anion Gap BUN Creatinine Estim Creat Clear Calc Estimated GFR Random Glucose Lactic Acid Calcium Urine Color YELLOW Urine Appearance CLEAR Urine pH 6.0 Ur Specific [place] 1.010 Urine Protein NEG Urine Glucose (UA) NEG Urine Ketones NEG Urine Blood NEG Urine Nitrite NEG Ur Leukocyte Esterase 1+ H Urine RBC 0-2 Urine WBC 10-14 H Urine WBC Clumps NOTED Ur Squamous Epith Cells TRACE Urine Bacteria TRACE Imaging Radiologist's impression: Impressions Chest X-Ray 06/04/21 14:48 IMPRESSION: Interval resolution of a pleural-based density of the right lateral chest seen on prior study 06/01/2021. Decreased pleural effusions with minimal blunting of costophrenic angles remaining. Resolved pulmonary vascular congestion. No acute airspace disease. Progress Note: A&P Assessment and plan (1) Acute CHF (congestive heart failure): Status: Acute (2) SHARON (acute kidney injury): Status: Acute Plan 75 female with moderate MS and Came with CHF Diuresed and we added KENZIE-i. She had SHARON subsequent to that. ACEi and diuretics on hold. Clinically euvolemic. Will recheck labs tomorrow and if creatinine improving then would resume oral diuretics may be in 24 hours. Would avoid KENZIE-i/ARB. Fall Risk Details Current Medications: Current Medications Acetaminophen (Acetaminophen 325 Mg Tablet) 650 mg PO Q6H PRN PRN Reason: Pain, Mild (Pain Scale 1-3) Albuterol Sulfate (Albuterol Sulfate 90 Mcg 8 Gm Inhaler) 2 puff INHALE Q6H PRN PRN Reason: Wheezing Apixaban (Apixaban 5 Mg Tablet) 5 mg PO BID [facility] Last Admin: 06/04/21 21:10 Dose: 5 mg Documented by: Lamotrigine (Lamotrigine 25 Mg Tablet) 50 mg PO BEDTIME [facility] Last Admin: 06/04/21 21:10 Dose: 50 mg Documented by: Melatonin (Melatonin 3 Mg Tablet) 6 mg PO BEDTIME PRN PRN Reason: Sleep Last Admin: 06/02/21 22:34 Dose: 6 mg Documented by: Metoprolol Succinate (Metoprolol Succinate Er 50 Mg Tab.Er.24h) 50 mg PO DAILY [facility]; Protocol Last Admin: 06/03/21 10:06 Dose: 50 mg Documented by: Olanzapine (Olanzapine 7.5 Mg Tablet) 7.5 mg PO BEDTIME [facility] Last Admin: 06/04/21 21:10 Dose: 7.5 mg Documented by: Ondansetron HCl (Ondansetron Hcl 4 Mg/2 Ml Vial) 4 mg IVPUSH Q8H PRN PRN Reason: Nausea and Vomiting Pharmacy Consult (Consult Rx Perform Med Rec) 1 each MISCELLANE ONCE PRN PRN Reason: Consult order Sodium Chloride (0.9 % Sodium Chloride Flush 3 Ml Syringe) 3 ml IVFLUSH QSHIFT [facility] Last Admin: 06/04/21 15:12 Dose: 3 ml Documented by: Time Spent With Patient Time: Total time spent is greater than 50% in coordination of care (as documented) at patient's floor/unit and/or counseling patient: Progress Note: Quality Stroke Does the patient have a stroke diagnosis?: No Procedures Date of Service Date of Service: 06/05/21
[2021-06-05 02:37] VITALS: BP 105/70; PULSE 90; RESP 20; TEMP 36.6; O2SAT 100
[2021-06-05] MEDS: 0.9 % Sodium Chloride Flush 3 ML SYRINGE IVFLUSH ×2 (02:39→10:18)
[2021-06-05 06:52] LABS: Anion Gap 14 (12-20); Blood Urea Nitrogen 48 mg/dL (9-16); Calcium 9.5 mg/dL (8.4-10.2); Carbon Dioxide 26 mmol/L (22-29); Chloride 105 mmol/L (96-108); Creatinine Clr Calc Pharmacy 23.7; Estimated Glomerular Filt Rate 25; Glucose Random 105 mg/dL (60-115); Potassium 4.1 mmol/L (3.3-5.1); Sodium 141 mmol/L (135-145)
[2021-06-05 07:10] VITALS: BP 100/62; PULSE 93; RESP 18; TEMP 36.3; O2SAT 99
--- NOTE | 2021-06-05 10:15 | HO.PM.IMPN ---
Subjective Subjective Date of Service: 06/05/21 Review of Systems Follow up CHF breathing is better no pain Physical Exam Vital Signs: Vital Signs: Last Vital Signs Temp 97.4 F 06/05/21 07:10 Pulse 93 06/05/21 07:10 Resp 18 06/05/21 07:10 BP 100/62 06/05/21 07:10 Pulse Ox 99 06/05/21 07:10 BMI result Body Mass Index 33.8 Appearing in no acute distress lung sounds are clear to auscultation heart regular rate rhythm, clear S1, S2 positive bowel sounds, abdomen is soft, nontender neuro patient is alert x3, no focal deficits Objective Data Active Medications Acetaminophen (Acetaminophen 325 Mg Tablet) 650 mg PO Q6H PRN PRN Reason: Pain, Mild (Pain Scale 1-3) Albuterol Sulfate (Albuterol Sulfate 90 Mcg 8 Gm Inhaler) 2 puff INHALE Q6H PRN PRN Reason: Wheezing Apixaban (Apixaban 5 Mg Tablet) 5 mg PO BID [facility] Last Admin: 06/04/21 21:10 Dose: 5 mg Documented by: JENNIFER Lamotrigine (Lamotrigine 25 Mg Tablet) 50 mg PO BEDTIME [facility] Last Admin: 06/04/21 21:10 Dose: 50 mg Documented by: JENNIFER Melatonin (Melatonin 3 Mg Tablet) 6 mg PO BEDTIME PRN PRN Reason: Sleep Last Admin: 06/02/21 22:34 Dose: 6 mg Documented by: SHANNAN Metoprolol Succinate (Metoprolol Succinate Er 50 Mg Tab.Er.24h) 50 mg PO DAILY [facility]; Protocol Last Admin: 06/03/21 10:06 Dose: 50 mg Documented by: JULIUSMCLMARIA DEL CARMEN Olanzapine (Olanzapine 7.5 Mg Tablet) 7.5 mg PO BEDTIME [facility] Last Admin: 06/04/21 21:10 Dose: 7.5 mg Documented by: JENNIFER Ondansetron HCl (Ondansetron Hcl 4 Mg/2 Ml Vial) 4 mg IVPUSH Q8H PRN PRN Reason: Nausea and Vomiting Pharmacy Consult (Consult Rx Perform Med Rec) 1 each MISCELLANE ONCE PRN PRN Reason: Consult order Sodium Chloride (0.9 % Sodium Chloride Flush 3 Ml Syringe) 3 ml IVFLUSH QSHIFT [facility] Last Admin: 06/05/21 02:39 Dose: 3 ml Documented by: JENNIFER Labs CBC & Chem 7: 06/04/21 14:49 06/05/21 06:12 Labs: Laboratory Results - last 24 hr 06/04/21 06/04/21 06/05/21 14:49 Unknown 06:12 MCV 94.6 MCH 30.1 MCHC 31.8 RDW 14.1 Plt Count 258 D MPV 11.3 Absolute Nucleated RBC 0.000 Nucleated RBC % (auto) 0.0 Anion Gap 14 Estim Creat Clear Calc 23.7 Estimated GFR 25 Random Glucose 105 Calcium 9.5 Urine Color YELLOW Urine Appearance CLEAR Urine pH 6.0 Ur Specific [place] 1.010 Urine Protein NEG Urine Glucose (UA) NEG Urine Ketones NEG Urine Blood NEG Urine Nitrite NEG Ur Leukocyte Esterase 1+ H Urine RBC 0-2 Urine WBC 10-14 H Urine WBC Clumps NOTED Ur Squamous Epith Cells TRACE Urine Bacteria TRACE Assessment and Plan (1) Acute respiratory failure with hypoxia: Status: Acute (2) Acute CHF (congestive heart failure): Status: Acute Plan 75 years old lady with PMH of CHF, mitral stenosis, AFib among others who presents to the hospital with a complaint of shortness of breath and chest heaviness for 1 day prior to admission. SHARON on CKD3. trending down creatinine up to 3.09 r/t diuresis/starting parvin-i hold nephrotoxins nephrology consultation pending gentle IVF Follow BMP Acute hypoxic respiratory failure secondary to acute on chronic HFpEF BNP trending down Cardiology input appreciated wean o2 as tolerated, may need home o2 eval lisinopril and metoprolol started on this admission - creatinine now trending up to 3, lisinopril held h/o Hypertension now with hypotension BP low in 80s, pt asymptomatic hold metoprolol, lisinopril initially Follow BP closely will check UA, CXR ; although afebrile, no leukocytosis to suggest infection at this time (i.e no evidence of sepsis at this time) Mediastinal lymphadenopathy CT scan reporting?Precarinal lymph node has increased in size from 1.7 x 2.1 cm (prior 3:22 2.1 x 2.6 cm (5:163). A pretracheal node has also increased in size from 1.3 to 1.5 cm? No reported previous evaluation To refer to PCP for eval Atrial fibrillation continue Eliquis, metoprolol DVT PPX-Eliquis attending: Dr. Kramer Patient requires ongoing hospitalization for SHARON/hypotension Quality Stroke Does the patient have a stroke diagnosis?: No VTE Prior VTE?: No VTE Risk Level:: Medical - moderate - high VTE Device Contraindication: Treatment Not Indicated VTE Drug Contraindication: Treatment Not Indicated
[2021-06-05] MEDS: Apixaban 5 MG TABLET PO ×2 (10:18→21:36)
[2021-06-05 11:08] VITALS: BP 100/62; PULSE 95; RESP 17; TEMP 36.3; O2SAT 99
--- NOTE | 2021-06-05 11:24 | PM.PNCARD ---
Subjective Subjective Date of Service: 06/05/21 Interval history: Feeling good. Cr improving Physical Exam Vital Signs: Last Vital Signs Temp 97.3 F 06/05/21 11:08 Pulse 95 06/05/21 11:08 Resp 17 06/05/21 11:08 BP 100/62 06/05/21 11:08 Pulse Ox 99 06/05/21 11:08 BMI result Body Mass Index 33.8 GENERAL APPEARANCE: in no acute distress, pleasant. NECK: no carotid bruit, no jugular venous distention. SKIN: no suspicious lesions, warm and dry. HEART: no murmurs, regular rate and rhythm. LUNGS: clear to auscultation bilaterally. ABDOMEN: soft, nontender. EXTREMITIES: no edema. PERIPHERAL PULSES: equal. NEUROLOGIC: No gross deficits, AAO X 3 Objective Labs and Meds Result diagrams: 06/04/21 14:49 06/05/21 06:12 Lab results: Laboratory Results - last 24 hr 06/04/21 06/04/21 06/05/21 14:49 Unknown 06:12 WBC 10.9 H RBC 3.92 L Hgb 11.8 L Hct 37.1 MCV 94.6 MCH 30.1 MCHC 31.8 RDW 14.1 Plt Count 258 D MPV 11.3 Absolute Nucleated RBC 0.000 Nucleated RBC % (auto) 0.0 Sodium 141 Potassium 4.1 Chloride 105 Carbon Dioxide 26 Anion Gap 14 BUN 48 H Creatinine 1.98 H Estim Creat Clear Calc 23.7 Estimated GFR 25 Random Glucose 105 Calcium 9.5 Urine Color YELLOW Urine Appearance CLEAR Urine pH 6.0 Ur Specific [place] 1.010 Urine Protein NEG Urine Glucose (UA) NEG Urine Ketones NEG Urine Blood NEG Urine Nitrite NEG Ur Leukocyte Esterase 1+ H Urine RBC 0-2 Urine WBC 10-14 H Urine WBC Clumps NOTED Ur Squamous Epith Cells TRACE Urine Bacteria TRACE Imaging Radiologist's impression: Impressions Chest X-Ray 06/04/21 14:48 IMPRESSION: Interval resolution of a pleural-based density of the right lateral chest seen on prior study 06/01/2021. Decreased pleural effusions with minimal blunting of costophrenic angles remaining. Resolved pulmonary vascular congestion. No acute airspace disease. Progress Note: A&P Assessment and plan (1) SHARON (acute kidney injury): Status: Acute (2) Acute CHF (congestive heart failure): Status: Acute Plan Feeling better Euvolemic Resume Lasix 40 mg daily. wean oxygen and ambulate. If feeling good then discharge. Will need repeat BMP next week. Fall Risk Details Current Medications: Current Medications Acetaminophen (Acetaminophen 325 Mg Tablet) 650 mg PO Q6H PRN PRN Reason: Pain, Mild (Pain Scale 1-3) Albuterol Sulfate (Albuterol Sulfate 90 Mcg 8 Gm Inhaler) 2 puff INHALE Q6H PRN PRN Reason: Wheezing Apixaban (Apixaban 5 Mg Tablet) 5 mg PO BID [facility] Last Admin: 06/05/21 10:18 Dose: 5 mg Documented by: Lamotrigine (Lamotrigine 25 Mg Tablet) 50 mg PO BEDTIME [facility] Last Admin: 06/04/21 21:10 Dose: 50 mg Documented by: Melatonin (Melatonin 3 Mg Tablet) 6 mg PO BEDTIME PRN PRN Reason: Sleep Last Admin: 06/02/21 22:34 Dose: 6 mg Documented by: Metoprolol Succinate (Metoprolol Succinate Er 50 Mg Tab.Er.24h) 50 mg PO DAILY [facility]; Protocol Last Admin: 06/03/21 10:06 Dose: 50 mg Documented by: Olanzapine (Olanzapine 7.5 Mg Tablet) 7.5 mg PO BEDTIME [facility] Last Admin: 06/04/21 21:10 Dose: 7.5 mg Documented by: Ondansetron HCl (Ondansetron Hcl 4 Mg/2 Ml Vial) 4 mg IVPUSH Q8H PRN PRN Reason: Nausea and Vomiting Pharmacy Consult (Consult Rx Perform Med Rec) 1 each MISCELLANE ONCE PRN PRN Reason: Consult order Sodium Chloride (0.9 % Sodium Chloride Flush 3 Ml Syringe) 3 ml IVFLUSH QSHIFT [facility] Last Admin: 06/05/21 10:18 Dose: 3 ml Documented by: Time Spent With Patient Time: Total time spent is greater than 50% in coordination of care (as documented) at patient's floor/unit and/or counseling patient: Progress Note: Quality Stroke Does the patient have a stroke diagnosis?: No Procedures Date of Service Date of Service: 06/05/21
--- NOTE | 2021-06-05 12:18 | P.CONNP_ITS ---
History of Present Illness Reason for Consult Consult date: 06/05/21 Reason for consult: SHARON/CKD Chief Complaint Chief complaint: SOB, chest heaviness History of Present Illness Narrative: The patient has history of CKD with BL S-Cr ~ 1.3-1.5 mg/dL admitted with Shortness of breath, chest heaviness A 75 years old lady with PMH of CHF, mitral stenosis, AFib among others who presents to the hospital with a complaint of shortness of breath and chest heaviness for 1 day prior to admission.?recurrent SHARON Review of Systems Review of Systems Follow up CHF breathing is better no pain Yes all other systems are reviewed and are negative Constitutional: Denies chills and Denies fever(s) Cardiovascular: Denies chest pain, Denies palpitations and Denies dyspnea Respiratory: Denies cough and Denies dyspnea Gastrointestinal: Denies abdominal pain, Denies nausea and Denies vomiting Endocrine: Denies palpitations PMFSH Past Medical History Medical History Atrial fibrillation Bipolar 1 disorder COPD (chronic obstructive pulmonary disease) Dyslipidemia HTN (hypertension) Kidney disease Leukocytosis [place] nephropathy Necrotizing granulomatous inflammation of lung Sarcoidosis Vitamin D deficiency Family History Family History Child No Financial Resp No problems noted. Family/Other Substance use disorder Surgical History Surgical History History of bronchoscopy Social History Social History (Updated 06/02/21 @ 13:13 by Bryon Edwards RN) Household Members: Family and None Household Members Other:: daughter lives downstairs Housing: House Are you a primary child care lead teacher to a significant other at home: No Do you presently have visiting nurse or other home services: No Patient Tobacco Use Status: Former Tobacco user Quit Date: 2013 Tobacco use type: Cigarette Years Smoked: 50 Second Hand Smoke Exposure: No Advance Directives Date on File: 04/26/21 service: No Current occupational status: retired Current occupational exposures/hazards: No Meds Allergies Allergy/AdvReac Type Severity Reaction Status Date / Time Sulfa (Sulfonamide Allergy Severe RASH, Verified 06/01/21 11:19 Antibiotics) Anaphylaxis [SULFA (SULFONAMIDE ANTIBIOTICS)] Active Medications: Current Medications Acetaminophen (Acetaminophen 325 Mg Tablet) 650 mg PO Q6H PRN PRN Reason: Pain, Mild (Pain Scale 1-3) Albuterol Sulfate (Albuterol Sulfate 90 Mcg 8 Gm Inhaler) 2 puff INHALE Q6H PRN PRN Reason: Wheezing Apixaban (Apixaban 5 Mg Tablet) 5 mg PO BID [facility] Last Admin: 06/05/21 10:18 Dose: 5 mg Documented by: Lamotrigine (Lamotrigine 25 Mg Tablet) 50 mg PO BEDTIME [facility] Last Admin: 06/04/21 21:10 Dose: 50 mg Documented by: Melatonin (Melatonin 3 Mg Tablet) 6 mg PO BEDTIME PRN PRN Reason: Sleep Last Admin: 06/02/21 22:34 Dose: 6 mg Documented by: Metoprolol Succinate (Metoprolol Succinate Er 50 Mg Tab.Er.24h) 50 mg PO DAILY [facility]; Protocol Last Admin: 06/03/21 10:06 Dose: 50 mg Documented by: Olanzapine (Olanzapine 7.5 Mg Tablet) 7.5 mg PO BEDTIME [facility] Last Admin: 06/04/21 21:10 Dose: 7.5 mg Documented by: Ondansetron HCl (Ondansetron Hcl 4 Mg/2 Ml Vial) 4 mg IVPUSH Q8H PRN PRN Reason: Nausea and Vomiting Pharmacy Consult (Consult Rx Perform Med Rec) 1 each MISCELLANE ONCE PRN PRN Reason: Consult order Sodium Chloride (0.9 % Sodium Chloride Flush 3 Ml Syringe) 3 ml IVFLUSH QSHIFT [facility] Last Admin: 06/05/21 10:18 Dose: 3 ml Documented by: Home Medications Medication Instructions Recorded Confirmed Last Taken Type albuterol sulfate 90 mcg/actuation 2 puff INHALATION Q6H PRN 09/23/20 06/01/21 06/01/21 History aerosol inhaler (Ventolin HFA) cholecalciferol (vitamin D3) 50 50 mcg PO DAILY 09/23/20 06/01/21 06/01/21 History mcg (2,000 unit) capsule lamotrigine 25 mg tablet 50 mg PO BEDTIME tab 09/23/20 06/01/21 06/01/21 History melatonin 10 mg tablet 10 mg PO BEDTIME 03/31/21 06/01/21 06/01/21 History olanzapine 7.5 mg tablet 1 tab PO BEDTIME 03/31/21 06/01/21 06/01/21 History tiotropium 2.5 mcg-olodaterol 2.5 2 puff INHALATION DAILY 03/31/21 06/01/21 06/01/21 History mcg/actuation mist for inhalation (Stiolto Respimat) Physical Exam Vital Signs: Last Vital Signs Temp 97.3 F 06/05/21 11:08 Pulse 95 06/05/21 11:08 Resp 17 06/05/21 11:08 BP 100/62 06/05/21 11:08 Pulse Ox 99 06/05/21 11:08 BMI result Body Mass Index 33.8 Const Other: Constitutional : Alert, oriented, not in distress Neck : Normal inspection, Supple Cardiovascular : RRR, no JVP, trace bilateral lower extremity edema Respiratory : fair bilateral air entry, decreased basal bilateral fine crackles, no wheezes or rhonchi, oxygen supplement Gastrointestinal: soft, lax, Normal bowel sounds, Non tender Skin : Warm, Dry Neurological : Alert & oriented x3, No focal deficit , CN 2-12 within normal General: cooperative, comfortable, no acute distress, alert and awake Nutritional Appearance: overweight Orientation/consciousness: patient oriented x3 Resp Effort & Inspection: normal respiratory effort and able to speak in complete sentences Auscultation: no rales Cardio Jugular venous distension: no JVD Rate: regular rate Heart sounds: S1 normal heart sound present and S2 normal heart sound present GI Inspection: No distended Palpation (GI): Soft to palpation and nontender Neuro General: patient oriented x3 Extrem Other: trace edema Results Lab Results Result Diagrams: 06/04/21 14:49 06/05/21 06:12 Lab results: Chemistry 06/03/21 06/04/21 06/05/21 06:01 07:00 06:12 Sodium 141 137 141 Potassium 3.9 4.5 4.1 Carbon Dioxide 31 H 25 26 BUN 35 H 55 H D 48 H Creatinine 2.03 H 3.09 H 1.98 H Calcium 9.6 9.0 D 9.5 Hematology 06/03/21 06/04/21 06:01 14:49 WBC 9.6 10.9 H Hgb 10.7 L 11.8 L Plt Count 189 258 D Urinalysis 06/04/21 Unknown Urine Color YELLOW Urine Appearance CLEAR Urine pH 6.0 Ur Specific [place] 1.010 Urine Protein NEG Urine Glucose (UA) NEG Urine Ketones NEG Urine Blood NEG Urine Nitrite NEG Ur Leukocyte Esterase 1+ H Urine RBC 0-2 Urine WBC 10-14 H Ur Squamous Epith Cells TRACE Assessment and Plan (1) SHARON (acute kidney injury): Status: Acute The patient has history of CKD with BL S-Cr ~ 1.3-1.5 mg/dL creat up a bit on admission and then up over 3 improved today CRS HF may be ischemic and with diuresis may get SHARON since the volume is not the cause of the HF (2) Acute CHF (congestive heart failure): Qualifiers: Heart failure type: unspecified Qualified Code(s): I50.9 - Heart failure, unspecified Status: Acute Plan Feeling better Euvolemic Resume Lasix 40 mg daily. wean oxygen and ambulate. If feeling good then discharge. Will need repeat BMP next week. Procedures Date of Service Date of Service: 06/05/21
--- NOTE | 2021-06-05 12:20 | PM.PNCARD ---
Subjective Subjective Date of Service: 06/05/21 Interval history: Seen and examined at bedside. Denying any symptoms. Kidney function is improving today. Physical Exam Vital Signs: Last Vital Signs Temp 97.3 F 06/05/21 11:08 Pulse 95 06/05/21 11:08 Resp 17 06/05/21 11:08 BP 100/62 06/05/21 11:08 Pulse Ox 99 06/05/21 11:08 BMI result Body Mass Index 33.8 GENERAL APPEARANCE: in no acute distress, pleasant. NECK: no carotid bruit, no jugular venous distention. SKIN: no suspicious lesions, warm and dry. HEART: no murmurs, regular rate and rhythm. LUNGS: clear to auscultation bilaterally. ABDOMEN: soft, nontender. EXTREMITIES: no edema. PERIPHERAL PULSES: equal. NEUROLOGIC: No gross deficits, AAO X 3 Objective Labs and Meds Result diagrams: 06/04/21 14:49 06/05/21 06:12 Lab results: Laboratory Results - last 24 hr 06/04/21 06/04/21 06/05/21 14:49 Unknown 06:12 WBC 10.9 H RBC 3.92 L Hgb 11.8 L Hct 37.1 MCV 94.6 MCH 30.1 MCHC 31.8 RDW 14.1 Plt Count 258 D MPV 11.3 Absolute Nucleated RBC 0.000 Nucleated RBC % (auto) 0.0 Sodium 141 Potassium 4.1 Chloride 105 Carbon Dioxide 26 Anion Gap 14 BUN 48 H Creatinine 1.98 H Estim Creat Clear Calc 23.7 Estimated GFR 25 Random Glucose 105 Calcium 9.5 Urine Color YELLOW Urine Appearance CLEAR Urine pH 6.0 Ur Specific [place] 1.010 Urine Protein NEG Urine Glucose (UA) NEG Urine Ketones NEG Urine Blood NEG Urine Nitrite NEG Ur Leukocyte Esterase 1+ H Urine RBC 0-2 Urine WBC 10-14 H Urine WBC Clumps NOTED Ur Squamous Epith Cells TRACE Urine Bacteria TRACE Imaging Radiologist's impression: Impressions Chest X-Ray 06/04/21 14:48 IMPRESSION: Interval resolution of a pleural-based density of the right lateral chest seen on prior study 06/01/2021. Decreased pleural effusions with minimal blunting of costophrenic angles remaining. Resolved pulmonary vascular congestion. No acute airspace disease. Progress Note: A&P Assessment and plan (1) Acute CHF (congestive heart failure): Status: Acute Plan [age] year female with diastolic heart failure, moderate mitral stenosis and regurgitation who presented for congestive heart failure. She was cardioverted from atrial fibrillation 1 day before presentation. Anticoagulation should not be interrupted in her case because of stroke risk. She had kidney injury after starting KENZIE-inhibitor which has discontinued at this stage. I think we should not resume KENZIE-inhibitor on her because of significant kidney trouble that happened from 1-2 doses. Diuretics were held and she was given gentle hydration. Kidney function is turning around and I think she will improve further as time passes. I think with her presentation for congestive heart failure she will need oral diuretics doing forward and may be from tomorrow she was started on 40 mg p.o. Lasix. From cardiovascular point of view she is fairly stable and can be discharged home we will arrange follow-up for her. Thank you for allowing me to participate in the care of your patient. Please feel free to contact me if you have any questions. Fall Risk Details Current Medications: Current Medications Acetaminophen (Acetaminophen 325 Mg Tablet) 650 mg PO Q6H PRN PRN Reason: Pain, Mild (Pain Scale 1-3) Albuterol Sulfate (Albuterol Sulfate 90 Mcg 8 Gm Inhaler) 2 puff INHALE Q6H PRN PRN Reason: Wheezing Apixaban (Apixaban 5 Mg Tablet) 5 mg PO BID [facility] Last Admin: 06/05/21 10:18 Dose: 5 mg Documented by: Lamotrigine (Lamotrigine 25 Mg Tablet) 50 mg PO BEDTIME [facility] Last Admin: 06/04/21 21:10 Dose: 50 mg Documented by: Melatonin (Melatonin 3 Mg Tablet) 6 mg PO BEDTIME PRN PRN Reason: Sleep Last Admin: 06/02/21 22:34 Dose: 6 mg Documented by: Metoprolol Succinate (Metoprolol Succinate Er 50 Mg Tab.Er.24h) 50 mg PO DAILY [facility]; Protocol Last Admin: 06/03/21 10:06 Dose: 50 mg Documented by: Olanzapine (Olanzapine 7.5 Mg Tablet) 7.5 mg PO BEDTIME [facility] Last Admin: 06/04/21 21:10 Dose: 7.5 mg Documented by: Ondansetron HCl (Ondansetron Hcl 4 Mg/2 Ml Vial) 4 mg IVPUSH Q8H PRN PRN Reason: Nausea and Vomiting Pharmacy Consult (Consult Rx Perform Med Rec) 1 each MISCELLANE ONCE PRN PRN Reason: Consult order Sodium Chloride (0.9 % Sodium Chloride Flush 3 Ml Syringe) 3 ml IVFLUSH QSHIFT [facility] Last Admin: 06/05/21 10:18 Dose: 3 ml Documented by: Time Spent With Patient Time: Total time spent is greater than 50% in coordination of care (as documented) at patient's floor/unit and/or counseling patient: Progress Note: Quality Stroke Does the patient have a stroke diagnosis?: No Procedures Date of Service Date of Service: 06/05/21
[2021-06-05 15:12] VITALS: BP 119/65; PULSE 114; RESP 17; TEMP 36.1; O2SAT 95
[2021-06-05 19:40] VITALS: BP 116/58; PULSE 104; RESP 17; TEMP 36.7; O2SAT 96
[2021-06-05] MEDS: lamoTRIgine 25 MG TABLET 50 MG PO (21:35)
[2021-06-05] MEDS: OLANZapine 7.5 MG TABLET PO (21:36)
[2021-06-05 23:27] VITALS: BP 106/67; PULSE 100; RESP 18; TEMP 36.1; O2SAT 98
--- NOTE | 2021-06-06 | ECG_ITS ---
Test Reason : aflutter Blood Pressure : / mmHG Vent. Rate : 104 BPM Atrial Rate : 348 BPM P-R Int : 000 ms QRS Dur : 086 ms QT Int : 350 ms P-R-T Axes : 000 050 046 degrees QTc Int : 460 ms Atrial flutter with variable A-V block Abnormal ECG When compared with ECG of 01-JUN-2021 11:11, Atrial flutter has replaced Sinus rhythm Referred By: Juan Carlos Hawkins Electronically Signed By:JOIE NAZARIO MD
[2021-06-06 02:52] VITALS: BP 121/77; PULSE 93; RESP 20; TEMP 36.1; O2SAT 97
[2021-06-06 07:49] VITALS: BP 134/72; PULSE 102; RESP 17; TEMP 36.7; O2SAT 96
--- NOTE | 2021-06-06 08:27 | PM.PNNEP ---
Subjective Subjective Date of Service: 06/06/21 Interval history: seen and examined this morning low bp overnight - patient asymptoamtic no sob, no chest pain Physical Exam Vital Signs: Vital Signs: Last Vital Signs Temp 98.0 F 06/06/21 07:49 Pulse 102 H 06/06/21 07:49 Resp 17 06/06/21 07:49 BP 134/72 06/06/21 07:49 Pulse Ox 96 06/06/21 07:49 BMI result Body Mass Index 33.8 Const: Other: Constitutional : Alert, oriented, not in distress Neck : Normal inspection, Supple Cardiovascular : RRR, no JVP, trace bilateral lower extremity edema Respiratory : fair bilateral air entry, decreased basal bilateral fine crackles, no wheezes or rhonchi, oxygen supplement Gastrointestinal: soft, lax, Normal bowel sounds, Non tender Skin : Warm, Dry Neurological : Alert & oriented x3, No focal deficit , CN 2-12 within normal General: cooperative, comfortable, no acute distress, alert and awake Nutritional Appearance: overweight Orientation/consciousness: patient oriented x3 Resp: Effort & Inspection: normal respiratory effort and able to speak in complete sentences Auscultation: no rales Cardio: Jugular venous distension: no JVD Rate: regular rate Heart sounds: S1 normal heart sound present and S2 normal heart sound present GI: Inspection: No distended Palpation (GI): Soft to palpation and nontender Neuro: General: patient oriented x3 Extrem: Other: trace edema Objective Data Labs CBC & Chem 7: 06/04/21 14:49 06/05/21 06:12 Microbiology Microbiology Results: Microbiology 06/04/21 Unknown Urine clean catch - Urine troy top Urine Culture - Final Strep agalactiae (Grp B) Procedures Date of Service Date of Service: 06/06/21 Assessment & Plan Assessment and plan (1) SHARON (acute kidney injury): Status: Acute Assessment and Plan: The patient has history of CKD with BL S-Cr ~ 1.3-1.5 mg/dL creat up a bit on admission and then up over 3 improved YESTERDAY LABS PENDING TODAY CRS HF may be ischemic and with diuresis may get SHARON since the volume is not the cause of the HF (2) Acute CHF (congestive heart failure): Status: Acute Plan Feeling better Euvolemic Resume Lasix 40 mg daily. wean oxygen and ambulate. If feeling good then discharge. Will need repeat BMP next week. Time Spent With Patient Time: Total time spent is greater than 50% in coordination of care (as documented) at patient's floor/unit and/or counseling patient: Progress Note: Quality Stroke Does the patient have a stroke diagnosis?: No
[2021-06-06] MEDS: Apixaban 5 MG TABLET PO ×2 (08:42→20:37)
[2021-06-06] MEDS: Metoprolol Succinate ER 25 MG TAB.ER.24H 75 MG PO (08:42)
--- NOTE | 2021-06-06 10:07 | HO.PM.IMPN ---
Subjective Subjective Date of Service: 06/06/21 Review of Systems Follow up CHF breathing is better no pain Physical Exam Vital Signs: Vital Signs: Last Vital Signs Temp 98.0 F 06/06/21 07:49 Pulse 102 H 06/06/21 07:49 Resp 17 06/06/21 07:49 BP 134/72 06/06/21 07:49 Pulse Ox 96 06/06/21 07:49 BMI result Body Mass Index 33.8 Appearing in no acute distress lung sounds are clear to auscultation heart regular rate rhythm, clear S1, S2 positive bowel sounds, abdomen is soft, nontender neuro patient is alert x3, no focal deficits Objective Data Active Medications Acetaminophen (Acetaminophen 325 Mg Tablet) 650 mg PO Q6H PRN PRN Reason: Pain, Mild (Pain Scale 1-3) Albuterol Sulfate (Albuterol Sulfate 90 Mcg 8 Gm Inhaler) 2 puff INHALE Q6H PRN PRN Reason: Wheezing Apixaban (Apixaban 5 Mg Tablet) 5 mg PO BID [facility] Last Admin: 06/06/21 08:42 Dose: 5 mg Documented by: LE Lamotrigine (Lamotrigine 25 Mg Tablet) 50 mg PO BEDTIME [facility] Last Admin: 06/05/21 21:35 Dose: 50 mg Documented by: BA Melatonin (Melatonin 3 Mg Tablet) 6 mg PO BEDTIME PRN PRN Reason: Sleep Last Admin: 06/02/21 22:34 Dose: 6 mg Documented by: SHANNAN Metoprolol Succinate (Metoprolol Succinate Er 25 Mg Tab.Er.24h) 75 mg PO DAILY [facility]; Protocol Last Admin: 06/06/21 08:42 Dose: 75 mg Documented by: LE Olanzapine (Olanzapine 7.5 Mg Tablet) 7.5 mg PO BEDTIME [facility] Last Admin: 06/05/21 21:36 Dose: 7.5 mg Documented by: BA Ondansetron HCl (Ondansetron Hcl 4 Mg/2 Ml Vial) 4 mg IVPUSH Q8H PRN PRN Reason: Nausea and Vomiting Pharmacy Consult (Consult Rx Perform Med Rec) 1 each MISCELLANE ONCE PRN PRN Reason: Consult order Sodium Chloride (0.9 % Sodium Chloride Flush 3 Ml Syringe) 3 ml IVFLUSH QSHIFT [facility] Last Admin: 06/06/21 01:59 Dose: Not Given Documented by: BA Non-Admin Reason: Previously Administered Labs CBC & Chem 7: 06/04/21 14:49 06/05/21 06:12 Microbiology Microbiology Results: Microbiology 06/04/21 Unknown Urine Culture - Final Urine clean catch - Urine troy top Strep agalactiae (Grp B) Assessment and Plan (1) Acute respiratory failure with hypoxia: Status: Acute (2) Acute CHF (congestive heart failure): Status: Acute Plan 75 years old lady with PMH of CHF, mitral stenosis, AFib among others who presents to the hospital with a complaint of shortness of breath and chest heaviness for 1 day prior to admission. SHARON on CKD3. trending down creatinine up to 3.09 r/t diuresis/starting parvin-i hold nephrotoxins nephrology rec resuming lasix Follow BMP Acute hypoxic respiratory failure secondary to acute on chronic HFpEF, resolved BNP trending down Cardiology rec not resuming parvin and resuming lasix wean o2 as tolerated, may need home o2 eval continue metoprolol h/o Hypertension now with hypotension. Improving BP low in 80s, pt asymptomatic hold metoprolol, lisinopril initially Follow BP closely no infectious source Mediastinal lymphadenopathy CT scan reporting?Precarinal lymph node has increased in size from 1.7 x 2.1 cm (prior 3:22 2.1 x 2.6 cm (5:163). A pretracheal node has also increased in size from 1.3 to 1.5 cm? No reported previous evaluation To refer to PCP for eval Atrial fibrillation continue Eliquis, metoprolol DVT PPX-Eliquis attending: Dr. Kramer Patient requires ongoing hospitalization for atrial fibrillation with rapid ventricular response and continued SHARON Quality Stroke Does the patient have a stroke diagnosis?: No VTE Prior VTE?: No VTE Risk Level:: Medical - moderate - high VTE Device Contraindication: Treatment Not Indicated VTE Drug Contraindication: Treatment Not Indicated
--- NOTE | 2021-06-06 11:50 | PM.PNCARD ---
Subjective Subjective Date of Service: 06/06/21 Interval history: Feeling better. Tachycardic this morning. Telemetry has shown Afib. Will repeat EKG. Physical Exam Vital Signs: Last Vital Signs Temp 98.0 F 06/06/21 07:49 Pulse 102 H 06/06/21 07:49 Resp 17 06/06/21 07:49 BP 134/72 06/06/21 07:49 Pulse Ox 96 06/06/21 07:49 BMI result Body Mass Index 33.8 GENERAL APPEARANCE: in no acute distress, pleasant. NECK: no carotid bruit, no jugular venous distention. SKIN: no suspicious lesions, warm and dry. HEART: no murmurs, tachycardic LUNGS: clear to auscultation bilaterally. ABDOMEN: soft, nontender. EXTREMITIES: no edema. PERIPHERAL PULSES: equal. NEUROLOGIC: No gross deficits, AAO X 3 Objective Labs and Meds Result diagrams: 06/04/21 14:49 06/05/21 06:12 Progress Note: A&P Assessment and plan (1) Acute CHF (congestive heart failure): Status: Acute (2) Atrial fibrillation: Status: Acute Plan 75-year-old female with moderate mitral stenosis and regurgitation who had shortness of breath after cardioversion and came in with congestive heart failure. She was diuresed but unfortunately developed kidney injury which led to holding her Tony inhibitor and diuretics for today and she received some IV fluids. Her kidney function started improving but today she was noted to be mildly tachycardic and telemetry is showing atrial fibrillation again. She is not complaining of any symptoms and feels good. Heart rate control is also okay right now. I think we put her back on Toprol-XL 50 mg once a day and add amiodarone 400 mg twice a day. Anticoagulation should be continued uninterrupted as before. Amiodarone should be continued for 10 days at 400 mg twice a day and then she can be changed to 200 mg once a day. If she is stable then can potentially be today or tomorrow. If AFib becomes difficult to control then we will consider cardioversion again. She had JOHNNY recently which did not show any left atrial appendage clot. Lasix should be increased to 40 mg once a day. Please check baseline TSH and liver function test as amiodarone is being added. Thank you for allowing me to participate in the care of your patient. Please feel free to contact me if you have any questions. Fall Risk Details Current Medications: Current Medications Acetaminophen (Acetaminophen 325 Mg Tablet) 650 mg PO Q6H PRN PRN Reason: Pain, Mild (Pain Scale 1-3) Albuterol Sulfate (Albuterol Sulfate 90 Mcg 8 Gm Inhaler) 2 puff INHALE Q6H PRN PRN Reason: Wheezing Apixaban (Apixaban 5 Mg Tablet) 5 mg PO BID [facility] Last Admin: 06/06/21 08:42 Dose: 5 mg Documented by: Furosemide (Furosemide 40 Mg Tablet) 40 mg PO DAILY [facility]; Protocol Lamotrigine (Lamotrigine 25 Mg Tablet) 50 mg PO BEDTIME [facility] Last Admin: 06/05/21 21:35 Dose: 50 mg Documented by: Melatonin (Melatonin 3 Mg Tablet) 6 mg PO BEDTIME PRN PRN Reason: Sleep Last Admin: 06/02/21 22:34 Dose: 6 mg Documented by: Metoprolol Succinate (Metoprolol Succinate Er 25 Mg Tab.Er.24h) 75 mg PO DAILY [facility]; Protocol Last Admin: 06/06/21 08:42 Dose: 75 mg Documented by: Olanzapine (Olanzapine 7.5 Mg Tablet) 7.5 mg PO BEDTIME [facility] Last Admin: 06/05/21 21:36 Dose: 7.5 mg Documented by: Ondansetron HCl (Ondansetron Hcl 4 Mg/2 Ml Vial) 4 mg IVPUSH Q8H PRN PRN Reason: Nausea and Vomiting Pharmacy Consult (Consult Rx Perform Med Rec) 1 each MISCELLANE ONCE PRN PRN Reason: Consult order Sodium Chloride (0.9 % Sodium Chloride Flush 3 Ml Syringe) 3 ml IVFLUSH QSHIFT [facility] Last Admin: 06/06/21 01:59 Dose: Not Given Documented by: Time Spent With Patient Time: Total time spent is greater than 50% in coordination of care (as documented) at patient's floor/unit and/or counseling patient: Progress Note: Quality Stroke Does the patient have a stroke diagnosis?: No Procedures Date of Service Date of Service: 06/06/21
[2021-06-06 12:00] VITALS: BP 115/63; PULSE 101; RESP 16; TEMP 36.5; O2SAT 95
[2021-06-06] MEDS: Amiodarone HCL 200 MG TABLET 400 MG PO ×2 (13:06→20:37)
[2021-06-06] MEDS: 0.9 % Sodium Chloride Flush 3 ML SYRINGE IVFLUSH ×3 (13:08→20:37)
[2021-06-06 15:39] VITALS: BP 103/67; PULSE 78; RESP 12; TEMP 36.3; O2SAT 96
[2021-06-06 19:32] VITALS: BP 99/79; PULSE 85; RESP 18; TEMP 36.4; O2SAT 98
[2021-06-06] MEDS: OLANZapine 7.5 MG TABLET PO (20:37)
[2021-06-06] MEDS: lamoTRIgine 25 MG TABLET 50 MG PO (20:37)
[2021-06-06 23:46] VITALS: BP 140/78; PULSE 58; RESP 18; TEMP 36.1; O2SAT 97
[2021-06-07 04:00] VITALS: BP 98/60; PULSE 78; RESP 18; TEMP 36.4; O2SAT 98
[2021-06-07 07:45] VITALS: BP 106/76; PULSE 90; RESP 20; TEMP 36.3; O2SAT 98
[2021-06-07 08:28] LABS: Alanine Aminotransferase 8 U/L (0-31); Albumin Level 3.5 g/dL (3.5-5.0); Alkaline Phosphatase 52 U/L (39-117); Anion Gap 15 (12-20); Aspartate Amino Transferase 10 U/L (5-31); Bilirubin Direct 0.2 mg/dL (0.0-0.5); Bilirubin Total 0.4 mg/dL (0.0-1.0); Blood Urea Nitrogen 39 mg/dL (9-16); Calcium 9.8 mg/dL (8.4-10.2); Carbon Dioxide 25 mmol/L (22-29); Chloride 104 mmol/L (96-108); Creatinine Clr Calc Pharmacy 28.1; Estimated Glomerular Filt Rate 30; Glucose Random 99 mg/dL (60-115); Potassium 4.8 mmol/L (3.3-5.1); Sodium 139 mmol/L (135-145); Total Protein 5.4 g/dL (6.5-8.0)
[2021-06-07 08:45] LABS: Thyroid Stimulating Hormone 0.78 uIU/mL (0.32-4.0)
[2021-06-07] MEDS: Furosemide 40 MG TABLET PO (08:55)
[2021-06-07] MEDS: Metoprolol Succinate ER 25 MG TAB.ER.24H 75 MG PO (08:55)
[2021-06-07] MEDS: Amiodarone HCL 200 MG TABLET 400 MG PO (08:55)
[2021-06-07] MEDS: Apixaban 5 MG TABLET PO (08:55)
[2021-06-07] MEDS: 0.9 % Sodium Chloride Flush 3 ML SYRINGE IVFLUSH (08:55)
--- NOTE | 2021-06-07 10:05 | P.PNNP_ITS ---
Subjective Subjective Date of Service: 06/07/21 Interval history: seen and examined this morning no sob, no chest pain S-Cr downtrending. No events overnight otherwise. Physical Exam Vital Signs: Vital Signs: Last Vital Signs Temp 97.3 F 06/07/21 07:45 Pulse 90 06/07/21 07:45 Resp 20 06/07/21 07:45 BP 106/76 06/07/21 07:45 Pulse Ox 98 06/07/21 07:45 BMI result Body Mass Index 33.8 Const: General: cooperative, comfortable and no acute distress Orientation/consciousness: oriented to person, oriented to place, oriented to time and patient oriented x3 HEENT: Head: Yes normal to inspection, Yes normocephalic and Yes atraumatic Neck: Neck: Yes no JVD Resp: Effort & Inspection: normal respiratory effort and able to speak in complete sentences Auscultation: clear to auscultation bilaterally Cardio: Jugular venous distension: no JVD Rate: regular rate Rhythm: re gular rhythm Heart sounds: S1 normal heart sound present and S2 normal heart sound present GI: Auscultation: normal bowel sounds Neuro: General: oriented to person, oriented to place, oriented to time and patient oriented x3 Extrem: General: Yes no clubbing, cyanosis or edema Objective Data Labs CBC & Chem 7: 06/04/21 14:49 06/07/21 08:01 Labs: Laboratory Results - last 24 hr 06/07/21 08:01 Sodium 139 Potassium 4.8 Chloride 104 Carbon Dioxide 25 Anion Gap 15 BUN 39 H Creatinine 1.67 H Estim Creat Clear Calc 28.1 Estimated GFR 30 Random Glucose 99 Calcium 9.8 Total Bilirubin 0.4 Direct Bilirubin 0.2 AST 10 ALT 8 Alkaline Phosphatase 52 Total Protein 5.4 L Albumin 3.5 TSH 0.78 Microbiology Microbiology Results: Microbiology 06/04/21 Unknown Urine clean catch - Urine t[place] top Urine Culture - Final Strep agalactiae (Grp B) Procedures Date of Service Date of Service: 06/07/21 Assessment & Plan Assessment and plan (1) SHARON (acute kidney injury): Status: Acute (2) Acute CHF (congestive heart failure): Status: Acute Plan The patient has history of CKD with BL S-Cr ~ 1.3-1.5 mg/dL. S-Cr downtrending. resumed loop diuretic yesterday. Avoid hypotension. CRS HF may be ischemic and with diuresis may get SHARON since the volume is not the cause of the HF Will require reassessment of loop diuretic dose as outpatient. Establish EDW. Prior history of [place] use puts her at risk for CKD progression. Anemia - stable. Time Spent With Patient Time: Total time spent is greater than 50% in coordination of care (as documented) at patient's floor/unit and/or counseling patient: Progress Note: Quality Stroke Does the patient have a stroke diagnosis?: No
--- NOTE | 2021-06-07 11:34 | P.PNCA_ITS ---
Subjective Subjective Date of Service: 06/07/21 Principal diagnosis: CHF, atrial fibrillation Interval history: Patient says she feels very well. Remains in atrial fibrillation. Started loading with amiodarone. No signs or symptoms of heart failure. Review of Systems Review of Systems Yes all other systems are reviewed and are negative Physical Exam Vital Signs: Last Vital Signs Temp 97.3 F 06/07/21 07:45 Pulse 90 06/07/21 07:45 Resp 20 06/07/21 07:45 BP 106/76 06/07/21 07:45 Pulse Ox 98 06/07/21 07:45 BMI result Body Mass Index 33.8 Const General: cooperative, comfortable, alert and awake Nutritional Appearance: obese Orientation/consciousness: patient oriented x3 Neck Neck: Yes trachea midline, Yes supple and Yes no JVD Resp Effort & Inspection: normal respiratory effort Auscultation: clear to auscultation bilaterally Cardio Jugular venous distension: no JVD Rhythm: abnormal rhythm irregularly irregular Heart sounds: S1 normal heart sound present and S2 normal heart sound present Skin General skin exam: no rashes or lesions noted Neuro General: patient oriented x3 and no focal motor deficits Extrem General: Yes no clubbing, cyanosis or edema Objective Labs and Meds Result diagrams: 06/04/21 14:49 06/07/21 08:01 Lab results: Laboratory Results - last 24 hr 06/07/21 08:01 Sodium 139 Potassium 4.8 Chloride 104 Carbon Dioxide 25 Anion Gap 15 BUN 39 H Creatinine 1.67 H Estim Creat Clear Calc 28.1 Estimated GFR 30 Random Glucose 99 Calcium 9.8 Total Bilirubin 0.4 Direct Bilirubin 0.2 AST 10 ALT 8 Alkaline Phosphatase 52 Total Protein 5.4 L Albumin 3.5 TSH 0.78 Progress Note: A&P Assessment and plan (1) Atrial fibrillation: Status: Acute Assessment and Plan: Atrial fibrillation with controlled ventricular response. Failed rhythm control without antiarrhythmic. Started loading with amiodarone [address] Hawkins. Plan for cardioversion in couple of weeks as per him. Continue full oral anticoagulation, currently on Eliquis with is 5 mg b.i.d.. Continue this uninterrupted. Plan for discharge today. (2) Congestive heart failure: Status: Acute Assessment and Plan: Prior history of heart failure, clinically euvolemic and well compensated. Continue p.o. Lasix 40 mg daily. Outpatient renal function will be pursued. Heart failure management was discussed. Daily weight monitoring and avoidance of salt loading was discussed. Patient can be discharged home today. Fall Risk Details Current Medications: Current Medications Acetaminophen (Acetaminophen 325 Mg Tablet) 650 mg PO Q6H PRN PRN Reason: Pain, Mild (Pain Scale 1-3) Albuterol Sulfate (Albuterol Sulfate 90 Mcg 8 Gm Inhaler) 2 puff INHALE Q6H PRN PRN Reason: Wheezing Amiodarone HCl (Amiodarone Hcl 200 Mg Tablet) 400 mg PO BID [facility] Last Admin: 06/07/21 08:55 Dose: 400 mg Documented by: Apixaban (Apixaban 5 Mg Tablet) 5 mg PO BID [facility] Last Admin: 06/07/21 08:55 Dose: 5 mg Documented by: Furosemide (Furosemide 40 Mg Tablet) 40 mg PO DAILY [facility]; Protocol Last Admin: 06/07/21 08:55 Dose: 40 mg Documented by: Lamotrigine (Lamotrigine 25 Mg Tablet) 50 mg PO BEDTIME [facility] Last Admin: 06/06/21 20:37 Dose: 50 mg Documented by: Melatonin (Melatonin 3 Mg Tablet) 6 mg PO BEDTIME PRN PRN Reason: Sleep Last Admin: 06/02/21 22:34 Dose: 6 mg Documented by: Metoprolol Succinate (Metoprolol Succinate Er 25 Mg Tab.Er.24h) 75 mg PO DAILY [facility]; Protocol Last Admin: 06/07/21 08:55 Dose: 75 mg Documented by: Olanzapine (Olanzapine 7.5 Mg Tablet) 7.5 mg PO BEDTIME [facility] Last Admin: 06/06/21 20:37 Dose: 7.5 mg Documented by: Ondansetron HCl (Ondansetron Hcl 4 Mg/2 Ml Vial) 4 mg IVPUSH Q8H PRN PRN Reason: Nausea and Vomiting Pharmacy Consult (Consult Rx Perform Med Rec) 1 each MISCELLANE ONCE PRN PRN Reason: Consult order Sodium Chloride (0.9 % Sodium Chloride Flush 3 Ml Syringe) 3 ml IVFLUSH QSHIFT [facility] Last Admin: 06/07/21 08:55 Dose: 3 ml Documented by: Time Spent With Patient Time: Total time spent is greater than 50% in coordination of care (as documented) at patient's floor/unit and/or counseling patient: Progress Note: Quality Stroke Does the patient have a stroke diagnosis?: No Procedures Date of Service Date of Service: 06/07/21
[2021-06-07 11:52] VITALS: BP 111/62; PULSE 80; RESP 20; TEMP 36.7; O2SAT 96
--- NOTE | 2021-06-07 11:54 | P.DS_ITS ---
DS: Providers Provider Date of Service: 06/07/21 Date of admission: 06/01/21 16:11 Primary care physician: TRINIDAD Uribe Consults: 06/01/21 16:19 Consult to Cardiology Routine Consulting Provider: Juan Carlos Hawkins Reason for consultation: CHF exacerbation 06/04/21 10:35 Consult to Nephrology Routine Consulting Provider: Jerry Zelaya Reason for consultation: sharon Has provider been notified: No [facility]: Martha Mao DS: Diagnosis Discharge Diagnosis (1) Atrial fibrillation: Status: Acute (2) Congestive heart failure: Status: Acute DS: Summary Hospital Course Hospital Course: HP as per admitting provider 75 years old lady with PMH of CHF, mitral stenosis, AFib among others who presents to the hospital with a complaint of shortness of breath and chest heaviness for 1 day prior to admission.? The patient reports that she was doing well yesterday morning but she came to the hospital for a scheduled cardioversion procedure for atrial fibrillation.? During the procedure she received IV fluid and was asked to hold Lasix after going back home.? She started to his shortness of breath and increase edema in lower extremities by the end of the day which was worsened this morning.? She came to the emergency were her oxygen room air was fine to be 87.? Chest x-ray showed chest congestion.? With elevated BNP. Started on IV Lasix and admitted to the hospital for further treatment . Atrial fibrillation with RVR. Resolved Treated with metoprolol, RVR off and on better control at this time continue Eliquis, metoprolol at 75mg and amiodarone 400mg BID for 10 days then 200mg daily SHARON on CKD3. trending down creatinine up to 3.09, now close to baseline r/t diuresis/starting parvin-i Lasix resumed Acute hypoxic respiratory failure secondary to acute on chronic HFpEF, resolved BNP trended down Cardiology rec not resuming parvin and resuming lasix continue metoprolol h/o Hypertension with hypotension. Resolved BP low in 80s, pt asymptomatic metoprolol and lisinopril held initially, BP improved Mediastinal lymphadenopathy CT scan reporting?Precarinal lymph node has increased in size from 1.7 x 2.1 cm (prior 3:22 2.1 x 2.6 cm (5:163). A pretracheal node has also increased in size from 1.3 to 1.5 cm? No reported previous evaluation To refer to PCP for eval Time Spent with Patient Time attestation: Total time spent providing and/or coordinating discharge services: Discharge coordination time: Greater than 30 minutes Quality: Safe Use of Opioids Does Pt have an Active Cancer Diagnosis on the Problem List?: No Quality: Stroke Does the patient have a stroke diagnosis?: No Physical Exam Vital Signs: Vital Signs: Last Vital Signs Temp 98.0 F 06/07/21 11:52 Pulse 80 06/07/21 11:52 Resp 20 06/07/21 11:52 BP 111/62 06/07/21 11:52 Pulse Ox 96 06/07/21 11:52 BMI result Body Mass Index 33.8 Appearing in no acute distress head is normocephalic atraumatic eyes pupils are PERRLA sclera is anicteric mouth throat mucous membranes are intact and moist neck is supple no lymphadenopathy, no JVD noted lung sounds are clear to auscultation heart regular rate rhythm, clear S1, S2 positive bowel sounds, abdomen is soft, nontender neuro patient is alert x3, no focal deficits DS: Data Data Completed and Pending Labs on day of discharge: Laboratory Results - last 24 hr 06/07/21 08:01 Sodium 139 Potassium 4.8 Chloride 104 Carbon Dioxide 25 Anion Gap 15 BUN 39 H Creatinine 1.67 H Estim Creat Clear Calc 28.1 Estimated GFR 30 Random Glucose 99 Calcium 9.8 Total Bilirubin 0.4 Direct Bilirubin 0.2 AST 10 ALT 8 Alkaline Phosphatase 52 Total Protein 5.4 L Albumin 3.5 TSH 0.78 Discharge Plan Discharge Anticipated Discharge Date/Time: 06/07/21 11:29 Patient Disposition: Home, Self-Care Discharge Diagnosis: SHARON on CKD Acute hypoxic respiratory failure secondary to acute on chronic HFpEF Afib Referrals: Juan Jose Ellington, BOARDING HOUSE MANAGER-BC [Primary Care Provider] - 1 Week Discharge Medications: New amiodarone 200 mg Tablet 400 mg PO BID Qty: 60 0RF Rx Instructions: take 400mg twice daily for 10 days then 200mg daily metoprolol succinate 25 mg Tablet Extended Release 24 Hr 75 mg PO DAILY Qty: 90 0RF Protocol: Hold for SBP/HR < HOLD for SBP < : 90 HOLD for HR < : 60 Continued simvastatin 20 mg tablet 20 mg PO BEDTIME Qty: 90 1RF Eliquis 5 mg tablet 5 mg PO BID 30 Days Qty: 60 1RF metoprolol succinate 50 mg tablet extended release 24 hr 50 mg PO DAILY Qty: 30 1RF furosemide [Lasix] 20 mg tablet 20 mg PO DAILY Qty: 30 0RF olanzapine 7.5 mg tablet 1 tab PO BEDTIME 0RF melatonin 10 mg Tablet 10 mg PO BEDTIME 0RF Stiolto Respimat 2.5-2.5 mcg/actuation mist 2 puff inhalation DAILY 0RF lamotrigine 25 mg tablet 50 mg PO BEDTIME 0RF cholecalciferol (vitamin D3) 50 mcg (2,000 unit) capsule 50 mcg PO DAILY 0RF albuterol sulfate [Ventolin HFA] 90 mcg/actuation HFA aerosol inhaler 2 puff inhalation Q6H PRN (Reason: Wheezing) 0RF Discharge Orders: Discharge Order (Routine); Ordered 06/07/21 Ordered By: Martha Mao Diet: advance to usual diet Activity on Discharge: As tolerated Stand Alone Forms: Patient Portal Discharge page Care Plan Goals: Resolution of symptoms Health Concerns: SHARON on CKD Acute hypoxic respiratory failure secondary to acute on chronic HFpEF Afib Plan of Treatment: Follow up with your residential real estate assistant in 10 days for medication management Assessment: See discharge summary
--- NOTE | 2021-06-07 12:19 | MHC.CM.PN ---
Pt will d/c to home today without services. Pt states her dtr will transport and she will call her when she is ready to leave. No service needs identified.
== END 2021-06-07 15:45 | disposition home or self-care (01) | DRG 291 ==
LOC: HO.ED 15:08 → HO.EDOVER 16:21 → HO.IMC 06-02 09:15
PROVIDERS: Hospitalist; Physician Assistant Medical; Admitting Provider Student in an Organized Health Care Education/Training Program; Emergency Provider Emergency Medicine; PCP Nurse Practitioner Family; Visit Provider Nurse Practitioner Acute Care
DX: I13.0 Hypertensive heart and chronic kidney disease with heart failure and stage 1 through stage 4 chronic kidney disease, or unspecified chronic kidney disease (principal); J96.01 Acute respiratory failure with hypoxia; I50.33 Acute on chronic diastolic (congestive) heart failure; N17.9 Acute kidney failure, unspecified; I48.0 Paroxysmal atrial fibrillation; R59.0 Localized enlarged lymph nodes; N18.30 Chronic kidney disease, stage 3 unspecified; I05.2 Rheumatic mitral stenosis with insufficiency; F31.9 Bipolar disorder, unspecified; I95.9 Hypotension, unspecified; Z20.822 Contact with and (suspected) exposure to COVID-19; Z87.891 Personal history of nicotine dependence; Z88.2 Allergy status to sulfonamides; Z79.01 Long term (current) use of anticoagulants; Z79.899 Other long term (current) drug therapy
CPT/HCPCS: 36415; 71045; 71250; 80048; 80076; 81001; 83605; 83880; 84443; 84484; 85025; 85027; 85610; 85730; 87086; 87147; 87635; 92960; 93005; 93312; 94640; 96374; 97110; 97116; 97162; 97530; 99285; J1940; J2370

== ENCOUNTER 2021-06-22 14:43 | Outpatient (REF) | payer MEDICARE, MEDICAID, SELFPAY ==
[2021-06-22 17:09] LABS: Alanine Aminotransferase 12 U/L (0-31); Anion Gap 14 (12-20); Aspartate Amino Transferase 13 U/L (5-31); Blood Urea Nitrogen 32 mg/dL (9-16); Calcium 9.9 mg/dL (8.4-10.2); Carbon Dioxide 28 mmol/L (22-29); Chloride 106 mmol/L (96-108); Estimated Glomerular Filt Rate 20; Glucose Random 114 mg/dL (60-115); Potassium 4.2 mmol/L (3.3-5.1); Sodium 144 mmol/L (135-145)
[2021-06-22 17:13] LABS: B Type Natriuretic Peptide 887 pg/mL (<100)
[2021-06-22 17:30] LABS: Thyroid Stimulating Hormone 1.33 uIU/mL (0.32-4.0)
== END 2021-06-22 14:44 | disposition home or self-care (01) ==
LOC: HO.LAB 14:43
PROVIDERS: PCP Nurse Practitioner Family; Referring Provider Nurse Practitioner Family; Visit Provider Nurse Practitioner Family
DX: I48.91 Unspecified atrial fibrillation (principal); I50.9 Heart failure, unspecified; I05.0 Rheumatic mitral stenosis
CPT/HCPCS: 36415; 80048; 83880; 84443; 84450; 84460; 93005; 99212

== ENCOUNTER 2021-06-25 12:21 | Day surgery (SDC) | payer MEDICARE, MEDICAID, SELFPAY ==
--- NOTE | 2021-06-24 08:57 | P.CONAN_ITS ---
Documented by User: Lupe Gunderson NP 06/24/21 09:04 HPI - Anesthesia Eval Consult details Narrative: 75yo F for Cardioversion Eliquis for afib s/p JOHNNY and Cardioversion 06/01/21 with TIVA PMFSH Active Problems Active Problems: All Active Problems (Updated 06/08/21 @ 00:02 by Emma Darussell) Congestive heart failure (Acute) Screening for osteoporosis (Acute) Microhematuria (Acute) Osteopenia (Acute) Physical deconditioning (Acute) Mitral stenosis (Acute) Past Medical History Medical History (Updated 06/24/21 @ 16:16 by Suad Aguilera NP-C) SHARON (acute kidney injury) Atrial fibrillation Bipolar 1 disorder COPD (chronic obstructive pulmonary disease) Dyslipidemia HTN (hypertension) Kidney disease Leukocytosis [employer] nephropathy Mediastinal lymphadenopathy Necrotizing granulomatous inflammation of lung Sarcoidosis Vitamin D deficiency Family History Family History Child No Financial Resp No problems noted. Family/Other Substance use disorder Family history of problems with anesthesia: No Surgical History Surgical History History of bronchoscopy History of cardioversion History of Problems with Anesthesia: No Social History Social History Household Members: Family Household Members Other:: daughter lives downstairs Housing: House Are you a primary acute care clinical nurse specialist to a significant other at home: No Do you presently have visiting nurse or other home services: No Alcohol intake: never Patient Tobacco Use Status: Former Tobacco user Quit Date: 2013 Tobacco use type: Cigarette Years Smoked: 50 +/- Smoked in Last 30 Days: No Second Hand Smoke Exposure: No Use of substances other than those prescribed or required for medical reasons: No Are you DNR?: No Advance Directives: Yes Advance Directives on File: Yes Advance Directives Date on File: 04/26/21 Recently lost weight without trying: Yes How much weight loss: 2-13 pounds Nutrition Risks: No Nutritional Risk service: No Current occupational status: retired Current occupational exposures/hazards: No Meds Allergies Allergy/AdvReac Type Severity Reaction Status Date / Time Sulfa (Sulfonamide Allergy Severe RASH, Verified 06/22/21 14:57 Antibiotics) Anaphylaxis [SULFA (SULFONAMIDE ANTIBIOTICS)] Home Medications Medication Instructions Recorded Confirmed Last Taken Type albuterol sulfate 90 mcg/actuation 2 puff INHALATION Q6H PRN 09/23/20 06/24/21 06/25/21 History aerosol inhaler (Ventolin HFA) cholecalciferol (vitamin D3) 50 50 mcg PO DAILY 09/23/20 06/24/21 06/01/21 History mcg (2,000 unit) capsule lamotrigine 25 mg tablet 50 mg PO BEDTIME tab 09/23/20 06/24/21 06/01/21 History melatonin 10 mg tablet 10 mg PO BEDTIME 03/31/21 06/24/21 06/01/21 History olanzapine 7.5 mg tablet 1 tab PO BEDTIME 03/31/21 06/24/21 06/01/21 History amiodarone 200 mg tablet 200 mg PO DAILY tab 06/22/21 06/24/21 06/25/21 History tiotropium 2.5 mcg-olodaterol 2.5 2 puff INHALATION DAILY PRN 06/22/21 06/24/21 06/25/21 History mcg/actuation mist for inhalation (Stiolto Respimat) Exam Exam Date and Time: June 24, 2021 0857 Pertinent Lab Results Pertinent Lab Results: Laboratory Tests 06/04/21 06/22/21 14:49 16:05 WBC 10.9 H Hgb 11.8 L Hct 37.1 Plt Count 258 D Sodium 144 Potassium 4.2 Chloride 106 Carbon Dioxide 28 BUN 32 H Creatinine 2.33 H Narrative Narrative: EKG 05/2021 Vent. Rate : 104 BPM ? ? Atrial Rate : 348 BPM ?? P-R Int : 000 ms? QRS Dur : 086 ms ? ? QT Int : 350 ms ? ? ? P-R-T Axes : 000 050 046 degrees ?? QTc Int : 460 ms ? Atrial flutter with variable A-V block Abnormal ECG When compared with ECG of 01-JUN-2021 11:11, Atrial flutter has replaced Sinus rhythm Assessment and Plan Assessment Anesthesia Assessment: Chart Reviewed Final Anesthetic Review Family History of Problems with Anesthesia: No History of Problems with Anesthesia: No Documented by User: Andra Voss MD 06/25/21 13:42 [facility] Past Medical History Medical History (Updated 06/24/21 @ 16:16 by Suad Aguilera NP-C) SHARON (acute kidney injury) Atrial fibrillation Bipolar 1 disorder COPD (chronic obstructive pulmonary disease) Dyslipidemia HTN (hypertension) Kidney disease Leukocytosis [employer] nephropathy Mediastinal lymphadenopathy Necrotizing granulomatous inflammation of lung Sarcoidosis Vitamin D deficiency Family History Family History Child No Financial Resp No problems noted. Family/Other Substance use disorder Surgical History Surgical History History of bronchoscopy History of cardioversion Social History Social History Household Members: Family Household Members Other:: daughter lives downstairs Housing: House Are you a primary acute care clinical nurse specialist to a significant other at home: No Do you presently have visiting nurse or other home services: No Alcohol intake: never Patient Tobacco Use Status: Former Tobacco user Quit Date: 2013 Tobacco use type: Cigarette Years Smoked: 50 +/- Smoked in Last 30 Days: No Second Hand Smoke Exposure: No Use of substances other than those prescribed or required for medical reasons: No Are you DNR?: No Advance Directives: Yes Advance Directives on File: Yes Advance Directives Date on File: 04/26/21 Recently lost weight without trying: Yes How much weight loss: 2-13 pounds Nutrition Risks: No Nutritional Risk service: No Current occupational status: retired Current occupational exposures/hazards: No Meds Allergies Allergy/AdvReac Type Severity Reaction Status Date / Time Sulfa (Sulfonamide Allergy Severe RASH, Verified 06/22/21 14:57 Antibiotics) Anaphylaxis [SULFA (SULFONAMIDE ANTIBIOTICS)] Home Medications Medication Instructions Recorded Confirmed Last Taken Type albuterol sulfate 90 mcg/actuation 2 puff INHALATION Q6H PRN 09/23/20 06/24/21 06/25/21 History aerosol inhaler (Ventolin HFA) cholecalciferol (vitamin D3) 50 50 mcg PO DAILY 09/23/20 06/24/21 06/01/21 History mcg (2,000 unit) capsule lamotrigine 25 mg tablet 50 mg PO BEDTIME tab 09/23/20 06/24/21 06/01/21 History melatonin 10 mg tablet 10 mg PO BEDTIME 03/31/21 06/24/21 06/01/21 History olanzapine 7.5 mg tablet 1 tab PO BEDTIME 03/31/21 06/24/21 06/01/21 History amiodarone 200 mg tablet 200 mg PO DAILY tab 06/22/21 06/24/21 06/25/21 History tiotropium 2.5 mcg-olodaterol 2.5 2 puff INHALATION DAILY PRN 06/22/21 06/24/21 06/25/21 History mcg/actuation mist for inhalation (Stiolto Respimat) Exam Height,Weight and Vital Signs: Height 5 ft 1 in Weight 80.286 kg Vital Signs Temp Pulse Resp BP Pulse Ox 06/25/21 13:12 97.4 F 95 16 111/73 95 Narrative Narrative: EKG 05/2021 Vent. Rate : 104 BPM ? ? Atrial Rate : 348 BPM ?? P-R Int : 000 ms? QRS Dur : 086 ms ? ? QT Int : 350 ms ? ? ? P-R-T Axes : 000 050 046 degrees ?? QTc Int : 460 ms ? Atrial flutter with variable A-V block Abnormal ECG When compared with ECG of 01-JUN-2021 11:11, Atrial flutter has replaced Sinus rhythm Procedure Date:? 05/31/2021 Procedure Type:? Transesophageal Echocardiogram ? Conclusion: Normal left ventricular size and systolic function. The? visually estimated ejection fraction is between 55-60%.? Normal right ventricular cavity size and systolic function.? ? There is no evidence of regional wall motion abnormalities.? Diastolic function is indeterminate on the basis of available data. Right Ventricle Normal right ventricular cavity size and systolic function. Atria There is no evidence of a thrombus in the left atrial appendage. Aortic Valve Normal aortic valve structure and function. There is severe mitral annular calcification.? There is? moderate mitral valve regurgitation.? The mitral regurgitation ? jet is directed posteriorly.? There is moderate mitral valve ? ? stenosis.? ?MG across mitral valve of 9-10 mm Hg at HR 94 beats/min. Pulmonic Valve Normal pulmonic valve structure and function.? There is trace pulmonic valve regurgitation. Tricuspid Valve Normal tricuspid valve structure and function.? There is moderate tricuspid valve regurgitation. Great Vessels Small plaque is seen in the descending thoracic aorta. Venous The inferior vena cava was not well visualized. Pericardium/Pleural There is no evidence of pericardial effusion. ? Airway Mallampati Class: III TM Dist: >3cm Neck ROM: Full Partial: Upper Heart: Irregularly irregular Lungs: CTAB Assessment and Plan Assessment Anesthesia Assessment: Anesthesia Plan Discussed Final Anesthetic Review NPO: Yes ASA Class: III Final Preanesthetic Review: No Changes in Pt Med Stat, Meds/Allgs Chart Reviewed, Consent Obtained/Reviewed and Anes Risks/Benef Reviewed Patient Risk: Intermediate Procedure Risk: Intermediate Assessment/Block/Sedation in SS: Assess/Block/Sedation- Anesthetic Plan Anesthetic Plan: GA Disposition: Standard PACU
[2021-06-25 13:08] VITALS: BMI 33.4
[2021-06-25 13:12] VITALS: BP 111/73; PULSE 95; RESP 16; TEMP 36.3; O2SAT 95
--- NOTE | 2021-06-25 13:26 | MHC.SHP ---
Pre-Procedural Eval Section A Date of Service: 06/25/21 The patient is an INPATIENT: No Changes since office visit: Yes Patient answered all questions; No Cold of Flu in the past 2 weeks, No New Medical Problems and No Changes in Medication The History & Physical has been completed within 30 days and I have reviewed it.: Yes Section B Chief Complaint: Other persistent atrial fibrillation Allergies: Allergies Allergy/AdvReac Type Severity Reaction Status Date / Time Sulfa (Sulfonamide Allergy Severe RASH, Verified 06/22/21 14:57 Antibiotics) Anaphylaxis [SULFA (SULFONAMIDE ANTIBIOTICS)] Plan I have reviewed the history and physical and performed a pertinent physical examination on my patient. No changes have occurred unless specified.
[2021-06-25] MEDS: Lactated Ringers 1,000 ML 50 ML IVCONT (13:37)
[2021-06-25 14:07] VITALS: BP 117/68; PULSE 55; RESP 16; TEMP 36.2; O2SAT 99
--- NOTE | 2021-06-25 14:14 | ECG_ITS ---
Test Reason : post cardioversion Blood Pressure : / mmHG Vent. Rate : 053 BPM Atrial Rate : 053 BPM P-R Int : 208 ms QRS Dur : 098 ms QT Int : 486 ms P-R-T Axes : 054 056 051 degrees QTc Int : 456 ms Sinus bradycardia Otherwise normal ECG When compared with ECG of 06-JUN-2021 13:32, Sinus rhythm has replaced Atrial flutter Vent. rate has decreased BY 51 BPM Referred By: Steven Castañeda Electronically Signed By:STEVEN CASTAÑEDA MD
--- NOTE | 2021-06-25 14:14 | HO.CARDIVERS ---
Cardioversion Procedure Note Cardioversion Date of Procedure: 06/25/2021 Ordering Provider: Suad Aguilera Performing Provider: Myself Indication for Procedure: Persistent symptomatic rate control atrial fibrillation Pre-Op Diagnosis: Same Post-Op Diagnosis: Sinus rhythm Performed with Transesophageal Echo: No History: See Suad is a note Consent: Verbal and Written consent was obtained from the patient before starting and confirming oral anticoagulation intakeThe patient was made aware of the risk of synchronized cardioversion including risk, benefits, alternatives 2nd open to procedure Procedure: After consent obtained, cardioversion pads were attached in AP configuration and the patient was sedated by the anesthesia team. Once adequate sedation achieved, patient was delivered 200 joules of biphasic synchronized energy in anteroposterior configuration. Complications: None Impression: Successful conversion to sinus rhythm Recommendations: 1. 12 lead EKG 2. Continue full oral anticoagulation 3. Continue amiodarone 4. Follow up in the clinic with EKG after Holter monitor.
[2021-06-25 14:22] VITALS: BP 102/53; PULSE 55; RESP 16; O2SAT 97
== END 2021-06-25 15:00 | disposition home or self-care (01) ==
PROVIDERS: PCP Nurse Practitioner Family; Visit Provider Internal Medicine Cardiovascular Disease
PROC: 5A2204Z Restoration of Cardiac Rhythm, Single (ICD-10-PCS; principal; 2021-06-25 14:20)
DX: I48.19 Other persistent atrial fibrillation (principal); R06.02 Shortness of breath; R53.83 Other fatigue; I05.0 Rheumatic mitral stenosis; I11.0 Hypertensive heart disease with heart failure; I50.9 Heart failure, unspecified; J44.9 Chronic obstructive pulmonary disease, unspecified; N17.9 Acute kidney failure, unspecified; Z79.899 Other long term (current) drug therapy; Z79.01 Long term (current) use of anticoagulants; Z88.2 Allergy status to sulfonamides; Z87.891 Personal history of nicotine dependence
CPT/HCPCS: 92960; 93005

== ENCOUNTER 2021-07-07 08:51 | Outpatient (REF) | payer MEDICARE, MEDICAID, SELFPAY ==
[2021-07-07 11:34] LABS: Appearance Urine CLOUDY; Color Urine YELLOW; Glucose Urine UA NEG (NEG); Leukocyte Esterase Urine 3+ (NEG); Nitrite Urine POS (NEG); Specific Gravity - Urine 1.015 (1.005-1.025); UACC Culture Trigger YES; Urine Blood TRACE (NEG); Urine Ketones NEG (NEG); Urine Protein NEG (NEG-TRACE)
[2021-07-07 11:54] LABS: Bacteria Urine 2+ /LPF; Mucus Urine TRACE /LPF; RBC Urine 0-2 /HPF (0); Squamous Epithelial Cell Urine TRACE /LPF
[2021-07-07 11:58] LABS: Anion Gap 12 (12-20); Blood Urea Nitrogen 20 mg/dL (9-16); Calcium 9.6 mg/dL (8.4-10.2); Carbon Dioxide 29 mmol/L (22-29); Chloride 106 mmol/L (96-108); Estimated Glomerular Filt Rate 24; Glucose Random 104 mg/dL (60-115); Potassium 4.2 mmol/L (3.3-5.1); Sodium 143 mmol/L (135-145)
[2021-07-07 12:15] LABS: B Type Natriuretic Peptide 481 pg/mL (<100)
== END 2021-07-07 08:52 | disposition home or self-care (01) ==
LOC: HO.HMGCLDS 08:51
PROVIDERS: Nurse Practitioner Family; Absent Provider Student in an Organized Health Care Education/Training Program; PCP Nurse Practitioner Family; Referring Provider Nurse Practitioner Family; Visit Provider Internal Medicine Cardiovascular Disease
DX: I50.9 Heart failure, unspecified (principal); I48.91 Unspecified atrial fibrillation; R53.81 Other malaise; N39.0 Urinary tract infection, site not specified; B96.1 Klebsiella pneumoniae [K. pneumoniae] as the cause of diseases classified elsewhere; Z16.11 Resistance to penicillins
CPT/HCPCS: 36415; 80048; 81001; 83880; 87086; 87088; 87186

== ENCOUNTER → 2021-07-13 07:49 | Outpatient (REF) | payer MEDICARE, MEDICAID, SELFPAY ==
--- NOTE | 2021-07-13 07:53 | HM_ITS ---
Conclusion: 1. Patient was monitored for total period of 3 days 2. Baseline was normal sinus rhythm with average heart of 59 beats per minute on the sinus bradycardia side with frequent sinus bradycardia 3. No significant pauses or marked sinus bradycardia noted 4. No episodes of atrial fibrillation noted 5. Very rare ectopy noted 6. No patient reported events MTDD
== END ==
LOC: HO.CARD 07:49
PROVIDERS: Visit Provider Internal Medicine Cardiovascular Disease
DX: I48.91 Unspecified atrial fibrillation (principal); I10 Essential (primary) hypertension; D86.9 Sarcoidosis, unspecified
CPT/HCPCS: 93242

== ENCOUNTER 2021-08-06 07:48 | Outpatient (REF) | payer MEDICARE, MEDICAID, SELFPAY ==
[2021-08-06 11:18] LABS: MANUAL DIFF FLAG NO
[2021-08-06 11:24] LABS: Basophils Absolute Auto 0.1 X10*3/uL (0.0-0.2); Basophils Percent Auto 0.7 % (0-2); Eosinophils Absolute Auto 0.4 X10*3/uL (0.0-0.4); Eosinophils Percent Auto 4.5 % (0-4); Hemoglobin 12.1 g/dl (12.0-16.0); Imm Gran Abs Auto 0.04 X10*3/uL (0.00-0.03); Imm Gran Pct Auto 0.4 % (0.0-0.4); Lymphocytes Absolute Auto 1.2 X10*3/uL (1.2-4.9); Lymphocytes Percent Auto 13.2 % (20-40); Mean Corpuscular Hemoglobin 29.1 pg (27.0-33.0); Mean Corpuscular Volume 93.8 fL (80.0-98.0); Mean Platelet Volume 11.5 fL (9.4-12.3); Monocytes Absolute Auto 0.7 X10*3/uL (0.1-1.2); Monocytes Percent Auto 7.7 % (2-11); Neutrophils Absolute Auto 6.7 x10*3/uL (2.0-8.3); Neutrophils Percent Auto 73.5 % (45-73); Platelet Count 217 X10*3/uL (160-400); Red Blood Count 4.16 X10*6/uL (4.20-5.50); Red Cell Distribution Width 13.2 % (11.0-16.0); White Blood Count 9.1 X10*3/uL (4.8-10.8)
[2021-08-06 11:51] LABS: Alanine Aminotransferase 11 U/L (0-31); Albumin Level 4.2 g/dL (3.5-5.0); Alkaline Phosphatase 64 U/L (39-117); Anion Gap 14 (12-20); Aspartate Amino Transferase 14 U/L (5-31); Bilirubin Total 0.8 mg/dL (0.0-1.0); Blood Urea Nitrogen 25 mg/dL (9-16); Calcium 9.5 mg/dL (8.4-10.2); Carbon Dioxide 26 mmol/L (22-29); Chloride 106 mmol/L (96-108); Estimated Glomerular Filt Rate 24; Glucose Random 102 mg/dL (60-115); Sodium 142 mmol/L (135-145); Total Protein 6.4 g/dL (6.5-8.0)
[2021-08-06 11:54] LABS: B Type Natriuretic Peptide 543 pg/mL (<100)
== END 2021-08-06 07:49 | disposition home or self-care (01) ==
LOC: HO.HMGCLDS 07:48
PROVIDERS: Nurse Practitioner Family; Visit Provider Nurse Practitioner Family
DX: I50.9 Heart failure, unspecified (principal); N39.0 Urinary tract infection, site not specified; N17.9 Acute kidney failure, unspecified
CPT/HCPCS: 36415; 80053; 83880; 85025

== ENCOUNTER 2021-08-10 08:22 | Outpatient (REF) | payer MEDICARE, MEDICAID, SELFPAY ==
[2021-08-10 11:35] LABS: Appearance Urine CLEAR; Color Urine YELLOW; Glucose Urine UA NEG (NEG); Leukocyte Esterase Urine 3+ (NEG); Nitrite Urine NEG (NEG); Urine Blood NEG (NEG); Urine Ketones NEG (NEG); Urine Protein NEG (NEG-TRACE)
[2021-08-10 12:03] LABS: Bacteria Urine TRACE /LPF; RBC Urine 0 /HPF (0); Squamous Epithelial Cell Urine TRACE /LPF
== END 2021-08-10 08:23 | disposition home or self-care (01) ==
LOC: HO.HMGCLNP 08:22
PROVIDERS: Visit Provider Nurse Practitioner Family
DX: N39.0 Urinary tract infection, site not specified (principal)
CPT/HCPCS: 81001; 87086; 87147

== ENCOUNTER → 2021-08-18 13:37 | Outpatient (BNVA) | payer MEDICARE, MEDICAID, SELFPAY | PROVIDERS: PCP Nurse Practitioner Family; Referring Provider Nurse Practitioner Family; Visit Provider Nurse Practitioner Family | DX: I50.9 Heart failure, unspecified (principal); I48.91 Unspecified atrial fibrillation; I05.0 Rheumatic mitral stenosis | CPT/HCPCS: 93005; Q3014 ==

== ENCOUNTER 2021-11-10 08:49 | Outpatient (REF) | payer MEDICARE, MEDICAID, SELFPAY ==
[2021-11-10 10:08] LABS: B Type Natriuretic Peptide 655 pg/mL (<100)
[2021-11-10 10:17] LABS: Alanine Aminotransferase 55 U/L (0-31); Albumin Level 4.3 g/dL (3.5-5.0); Alkaline Phosphatase 69 U/L (39-117); Anion Gap 16 (12-20); Aspartate Amino Transferase 34 U/L (5-31); Bilirubin Total 0.6 mg/dL (0.0-1.0); Blood Urea Nitrogen 33 mg/dL (9-16); Calcium 9.4 mg/dL (8.4-10.2); Carbon Dioxide 29 mmol/L (22-29); Chloride 104 mmol/L (96-108); Estimated Glomerular Filt Rate 21; Glucose Random 105 mg/dL (60-115); Potassium 4.6 mmol/L (3.3-5.1); Sodium 144 mmol/L (135-145); Total Protein 6.2 g/dL (6.5-8.0)
[2021-11-10 10:39] LABS: TSH reflex Free T4 1.05 uIU/mL (0.32-4.0)
== END 2021-11-10 08:50 | disposition home or self-care (01) ==
LOC: HO.LAB 08:49
PROVIDERS: PCP Nurse Practitioner Family; Visit Provider Nurse Practitioner Family
DX: I50.9 Heart failure, unspecified (principal); I48.91 Unspecified atrial fibrillation
CPT/HCPCS: 36415; 80053; 83880; 84443

== ENCOUNTER → 2021-11-15 09:15 | Outpatient (BNVA) | payer MEDICARE, MEDICAID, SELFPAY | PROVIDERS: PCP Nurse Practitioner Family; Referring Provider Nurse Practitioner Family; Visit Provider Internal Medicine Cardiovascular Disease | DX: I50.9 Heart failure, unspecified (principal); I48.0 Paroxysmal atrial fibrillation; I05.0 Rheumatic mitral stenosis | CPT/HCPCS: 93005; 99212 ==

== ENCOUNTER 2021-12-10 07:50 | Outpatient (REF) | payer MEDICARE, MEDICAID, SELFPAY ==
[2021-12-10 12:16] LABS: Anion Gap 15 (12-20); Blood Urea Nitrogen 28 mg/dL (9-16); Calcium 9.7 mg/dL (8.4-10.2); Carbon Dioxide 30 mmol/L (22-29); Chloride 101 mmol/L (96-108); Estimated Glomerular Filt Rate 20; Glucose Random 109 mg/dL (60-115); Potassium 4.3 mmol/L (3.3-5.1); Sodium 142 mmol/L (135-145)
== END 2021-12-10 07:51 | disposition home or self-care (01) ==
LOC: HO.HMGCLDS 07:50
PROVIDERS: PCP Nurse Practitioner Family; Visit Provider Internal Medicine Cardiovascular Disease
DX: I50.9 Heart failure, unspecified (principal)
CPT/HCPCS: 36415; 80048

== ENCOUNTER 2022-01-13 22:18 | Emergency (ER) | payer MEDICARE, MEDICAID, SELFPAY ==
--- NOTE | ~2022-01-13 | XR_ITS ---
EXAMINATION: XR KNEE, RIGHT CLINICAL INFORMATION: Status post fall COMPARISON: None TECHNIQUE: AP, lateral, and both oblique views of the right knee. FINDINGS: Chondrocalcinosis in the lateral compartment. No fracture or malalignment. Superficial infrapatellar soft tissue swelling is noted. No gas in the joint. Joint spaces are well-preserved. No osseous lesions. XR/XR knee RT 3V IMPRESSION: Infrapatellar soft tissue swelling. No acute osseous findings.
--- NOTE | ~2022-01-13 | XR_ITS ---
EXAMINATION: XR HAND/WRIST, RIGHT CLINICAL INFORMATION: Status post fall. COMPARISON: None TECHNIQUE: PA, lateral, oblique, and scaphoid views of the right hand and wrist. FINDINGS: Bones are osteopenic. Distal radius and scaphoid appear intact. Subtle cortical offset is evident at the ulnar styloid, raising the possibility of a nondisplaced fracture. Mild soft tissue swelling at the wrist. Alignment of the proximal carpal row is normal. Joint spaces appear relatively well-preserved XR/XR hand wrist RT IMPRESSION: Subtle cortical offset at the ulnar styloid, raising the possibility of a nondisplaced fracture. Recommend correlation for point tenderness in this region. No additional fractures are identified. Osteopenia.
--- NOTE | ~2022-01-13 | CT_ITS ---
EXAMINATION: CT HEAD WITHOUT CONTRAST CLINICAL INFORMATION: Fall. Pain. COMPARISON: 12/15/2018 TECHNIQUE: Contiguous axial imaging was performed from the skull base to vertex without intravenous contrast. This CT examination was performed using dose optimization techniques as appropriate, variously including the following: * Automated exposure control * Adjustment of mA and/or kV according to patient size (this includes techniques or standardized protocols for targeted exams where dose is matched to indication/reason for exam; i.e. extremities or head) Use of iterative reconstruction technique DLP: 704 mGy-cm. FINDINGS: There is no evidence of acute intracranial hemorrhage or territorial infarction. No abnormal mass effect or midline shift is seen. Jacome to white matter differentiation is well preserved. No extra-axial fluid collections are identified. No hydrocephalus. Proportional prominence of the ventricles and sulcal spaces is consistent with mild volume loss. Patchy periventricular and deep white matter hypoattenuation is consistent with mild small vessel ischemic changes. The osseous structures and soft tissues are normal. The mastoid air cells and visualized portions of the paranasal sinuses are well aerated. CT/CT head/brain wo IV con IMPRESSION: No acute intracranial pathology.
[2022-01-13 22:18] VITALS: BP 145/76; PULSE 62; RESP 18; TEMP 36.3; O2SAT 94; BMI 32.1
--- NOTE | 2022-01-13 23:21 | ED_ITS ---
HPI - Fall General Chief Complaint: Fall Stated Complaint: fall, tremors Time Seen by Provider: 01/13/22 22:28 Source: patient and family History of Present Illness HPI Narrative: 76-year-old female with a past medical history of atrial fibrillation on Eliquis who presents to the emergency department today after a fall. The patient was walking down stairs and lost her balance, falling forward onto her right knee, right wrist and right forehead. The patient states there was no loss of consciousness and only complains of pain in the wrist and knee. No exacerbating or relieving factors. This occurred approximately 30-60 minutes prior to arrival. MD complaint: fall Onset (ago): hour(s) (1) Fall from: down stairs (#) Fall witnessed: yes, by family Place fall occurred: home Loss of consciousness: none Prolonged down time: no Context: tripped/slipped Location of injury: head and face Location of injury - extremities: right: forearm and knee Severity: mild Quality: dull Related Data Home Medications Medication Instructions Recorded Confirmed albuterol sulfate 90 mcg/actuation 2 puff inhalation Q6H PRN Wheezing 09/23/20 11/15/21 aerosol inhaler (Ventolin HFA) cholecalciferol (vitamin D3) 50 50 mcg PO DAILY 09/23/20 11/15/21 mcg (2,000 unit) capsule lamotrigine 25 mg tablet 50 mg PO BEDTIME 09/23/20 11/15/21 melatonin 10 mg tablet 10 mg PO BEDTIME 03/31/21 11/15/21 olanzapine 7.5 mg tablet 1 tab PO BEDTIME 03/31/21 11/15/21 tiotropium 2.5 mcg-olodaterol 2.5 2 puff inhalation DAILY PRN 06/22/21 11/15/21 mcg/actuation mist for inhalation Shortness Of Breath (Stiolto Respimat) hydroxyzine HCl 10 mg tablet 10 mg PO ONCE 11/15/21 11/15/21 Previous Rx's Medication Instructions Recorded apixaban 5 mg tablet (Eliquis) 5 mg PO BID 30 days #60 tabs 07/27/21 cefixime 200 mg/5 mL oral 200 mg (5 mL) PO DAILY 7 days #35 08/10/21 suspension mL simvastatin 20 mg tablet 20 mg PO BEDTIME #90 tabs 09/26/21 amiodarone 200 mg tablet 200 mg PO DAILY #90 tabs 10/29/21 metoprolol succinate 25 mg 50 mg PO DAILY #180 tabs 10/29/21 tablet,extended release 24 hr furosemide 20 mg tablet 20 mg PO .COMPLEX 90 days #90 tabs 12/22/21 Allergies Allergy/AdvReac Type Severity Reaction Status Date / Time Sulfa (Sulfonamide Allergy Severe RASH, Verified 08/18/21 14:07 Antibiotics) Anaphylaxis [SULFA (SULFONAMIDE ANTIBIOTICS)] Review of Systems Constitutional: Constitutional: Denies chills, Denies fever(s) and Denies headache(s) Eyes: Eyes: Denies blurry vision and Denies diplopia ENT: Denies dizziness, Denies headache(s) and Denies neck pain Cardiovascular: Cardiovascular: Denies chest pain, Denies syncope, Denies rapid heart rate and Denies dyspnea Respiratory: Respiratory: Denies cough and Denies dyspnea Gastrointestinal: Gastrointestinal: Reports no additional gastrointestinal complaints Genitourinary: Genitourinary: Reports no additional female genitourinary complaints Musculoskeletal: Musculoskeletal: Denies neck pain Neurologic: Denies confusion, Denies dizziness, Denies syncope and Denies headache(s) Psychiatric: Psychiatric: Denies confusion PMFSH Past Medical History Attestation statement: The following information was validated with the patient. Medical History SHARON (acute kidney injury) Atrial fibrillation Bipolar 1 disorder COPD (chronic obstructive pulmonary disease) Dyslipidemia HTN (hypertension) Kidney disease Leukocytosis [place] nephropathy Mediastinal lymphadenopathy Necrotizing granulomatous inflammation of lung Sarcoidosis Vitamin D deficiency Surgical History History of bronchoscopy History of cardioversion Family History Family History Child No Financial Resp No problems noted. Family/Other Substance use disorder Social History Social History Household Members: Family Household Members Other:: daughter lives downstairs Housing: House Are you a primary respiratory care specialist to a significant other at home: No Do you presently have visiting nurse or other home services: No Alcohol intake: never Patient Tobacco Use Status: Former Tobacco user Quit Date: 2013 Tobacco use type: Cigarette Years Smoked: 50 +/- e-Cigarette/Vaping Use: Never Used Second Hand Smoke Exposure: No Advance Directives: Yes Advance Directives on File: Yes Advance Directives Date on File: 04/26/21 service: No Current occupational status: retired Current occupational exposures/hazards: No Cognitive needs: No Hearing needs: No Vision needs: Yes Physical Exam Vital Signs: Vital Signs: Last Vital Signs Temp 98.4 F 01/13/22 23:42 Pulse 59 01/13/22 23:42 Resp 16 01/13/22 23:42 BP 129/46 L 01/13/22 23:42 Pulse Ox 93 01/13/22 23:42 O2 Del Method 01/13/22 23:42 BMI result Body Mass Index 32.1 Vital signs are stable and normal Const: General: cooperative, alert and awake; No acute distress or confusion Nutritional Appearance: average body habitus Orientation/consciousness: patient oriented x3 and No confusion HEENT: Head: Yes normocephalic, Yes abrasion and No Castillo's sign Head images: 1. Abrasion Ears: hearing grossly normal bilaterally and external ears normal General nose exam: Normal external nose present Face and sinus: Yes normal facial exam Mouth: Normal oral and palatal mucosa present Eyes: Eyelids: Yes eyelids normal Conjunctivae: conjunctivae normal Sclerae: sclerae normal Pupils: Equal, round and reactive pupils present EOM: EOMs intact bilaterally Neck: Neck: Yes normal visual inspection, Yes full ROM and No tender Resp: Effort & Inspection: normal respiratory effort, no cough, not labored and no respiratory distress Neuro: General: patient oriented x3 and No confusion Cranial nerves: Yes Equal, round and reactive pupils present MDM - Fall MDM Narrative Medical decision making narrative: 76-year-old female who fell down some stairs earlier today. Patient presented with right knee and right wrist pain. X-rays were performed, which did not indicate any acute fracture, there was a question of an ulnar fracture, but there is no tenderness in that area. CT scan of the head was performed because the patient is on Eliquis, and that was also interpreted by the radiologist as unremarkable. We will attempt to see if the patient is able to ambulate at this time. 0211: The patient is ambulatory in the emergency department, and would like to go home at this time. The patient was given instructions for head injury, as was her daughter. They will follow up with the primary care doctor tomorrow. Medical Records Attestation: I reviewed the patient's medical records. Imaging Data CT scan - head: Radiologist's impression: FINDINGS: There is no evidence of acute intracranial hemorrhage or territorial infarction. No abnormal mass effect or midline shift is seen. Jacome to white matter differentiation is well preserved. No extra-axial fluid collections are identified. No hydrocephalus. Proportional prominence of the ventricles and sulcal spaces is consistent with mild volume loss. Patchy periventricular and deep white matter hypoattenuation is consistent with mild small vessel ischemic changes. The osseous structures and soft tissues are normal. The mastoid air cells and visualized portions of the paranasal sinuses are well aerated X-ray right knee: Radiologist's impression: FINDINGS: Chondrocalcinosis in the lateral compartment. No fracture or malalignment. Superficial infrapatellar soft tissue swelling is noted. No gas in the joint. Joint spaces are well-preserved. No osseous lesions. X-ray right wrist: Radiologist's impression: FINDINGS: Bones are osteopenic. Distal radius and scaphoid appear intact. Subtle cortical offset is evident at the ulnar styloid, raising the possibility of a nondisplaced fracture. Mild soft tissue swelling at the wrist. Alignment of the proximal carpal row is normal. Joint spaces appear relatively well-preserved Discharge Plan Discharge Clinical Impression: Contusion of right knee, initial encounter Fall Qualifiers: Encounter type: initial encounter Qualified Code(s): W19.XXXA - Unspecified fall, initial encounter Contusion of right wrist Qualifiers: Encounter type: initial encounter Qualified Code(s): S60.211A - Contusion of right wrist, initial encounter Forehead abrasion Qualifiers: Encounter type: initial encounter Qualified Code(s): S00.81XA - Abrasion of other part of head, initial encounter Closed head injury Qualifiers: Encounter type: initial encounter Qualified Code(s): S09.90XA - Unspecified injury of head, initial encounter Patient Disposition: Home, Self-Care Instructions: Head Injury (ED), Contusion in Adults (ED) Prescriptions: No Action Eliquis 5 mg tablet 5 mg PO BID 30 Days Qty: 60 5RF cefixime 200 mg/5 mL suspension for reconstitution 200 mg PO DAILY 7 Days Qty: 35 0RF simvastatin 20 mg tablet 20 mg PO BEDTIME Qty: 90 1RF metoprolol succinate 25 mg tablet extended release 24 hr 50 mg PO DAILY Qty: 180 3RF amiodarone 200 mg tablet 200 mg PO DAILY Qty: 90 3RF furosemide 20 mg tablet 20 mg PO .COMPLEX 90 Days Qty: 90 1RF Rx Instructions: 20 mg orally 3 times a week, Monday and Monday; 2 tabs daily ( 40mg) olanzapine 7.5 mg tablet 1 tab PO BEDTIME melatonin 10 mg Tablet 10 mg PO BEDTIME Stiolto Respimat 2.5-2.5 mcg/actuation mist 2 puff inhalation DAILY PRN (Reason: Shortness Of Breath) lamotrigine 25 mg tablet 50 mg PO BEDTIME cholecalciferol (vitamin D3) 50 mcg (2,000 unit) capsule 50 mcg PO DAILY albuterol sulfate [Ventolin HFA] 90 mcg/actuation HFA aerosol inhaler 2 puff inhalation Q6H PRN (Reason: Wheezing) hydroxyzine HCl 10 mg tablet 10 mg PO ONCE Referrals: Juan Jose Ellington, [employer] [Primary Care Provider] - 1 day
[2022-01-13 23:42] VITALS: BP 129/46; PULSE 59; RESP 16; TEMP 36.9; O2SAT 93
== END 2022-01-14 02:22 | disposition home or self-care (01) ==
PROVIDERS: Emergency Provider Emergency Medicine; PCP Nurse Practitioner Family
DX: S09.90XA Unspecified injury of head, initial encounter (principal); S80.01XA Contusion of right knee, initial encounter; S60.211A Contusion of right wrist, initial encounter; S00.81XA Abrasion of other part of head, initial encounter; W10.8XXA Fall (on) (from) other stairs and steps, initial encounter; Y93.89 Activity, other specified; Y92.018 Other place in single-family (private) house as the place of occurrence of the external cause; Y99.9 Unspecified external cause status; I10 Essential (primary) hypertension; I48.91 Unspecified atrial fibrillation; Z79.01 Long term (current) use of anticoagulants; Z79.02 Long term (current) use of antithrombotics/antiplatelets; Z79.899 Other long term (current) drug therapy
CPT/HCPCS: 70450; 73110; 73130; 73562; 99283; 99284

== ENCOUNTER 2022-02-23 08:59 | Outpatient (REF) | payer MEDICARE, MEDICAID, SELFPAY ==
--- NOTE | ~2022-02-23 | XR_ITS ---
EXAMINATION: XR TIBIA AND FIBULA, RIGHT CLINICAL INFORMATION: Fall, initial encounter. COMPARISON: Knee radiographs dated 01/13/2022 TECHNIQUE: AP and lateral views of the right tibia and fibula were obtained. FINDINGS: Bones are osteopenic. No fracture or malalignment. Right knee and right ankle are normal. Small enthesopathic spurs are present at the Achilles tendon insertion and plantar fascial origin on the calcaneus. XR/XR tibia fibula RT 2V IMPRESSION: No acute fracture identified at the right tibia and fibula. Bones are osteopenic.
--- NOTE | ~2022-02-23 | XR_ITS ---
EXAMINATION: XR HAND/WRIST, RIGHT CLINICAL INFORMATION: Fall. Pain. COMPARISON: 01/13/2022 TECHNIQUE: PA, lateral, oblique, and scaphoid views of the right hand and wrist. FINDINGS: Bones are osteopenic. There is a transverse distal radial fracture extending to both the dorsal and volar cortices. Intra-articular extension is suspected. There is subtle sclerosis along the fracture lines. This may correspond to a nondisplaced healing subacute fracture. It is not apparent retrospectively on the prior study. The previously suspected nondisplaced ulnar styloid fracture is again noted. Soft tissues are swollen at the wrist. Chondrocalcinosis is present at the TFCC. Joint spaces appear well-preserved. No carpal bone fractures are identified. Scaphoid appears intact. XR/XR hand wrist RT IMPRESSION: 1. Nondisplaced distal radial fracture with probable intra-articular extension, likely subacute. This was not evident radiographically on the prior study, though may be attributable to an injury at that time. 2. Nondisplaced ulnar styloid fracture, also likely subacute. 3. No new fractures are identified.
[2022-02-23 11:11] LABS: MANUAL DIFF FLAG NO
[2022-02-23 11:30] LABS: Basophils Percent Auto 0.3 % (0-2); Eosinophils Absolute Auto 0.1 X10*3/uL (0.0-0.4); Eosinophils Percent Auto 1.6 % (0-4); Hematocrit 38.4 % (37.0-47.0); Hemoglobin 12.2 g/dl (12.0-16.0); Imm Gran Abs Auto 0.11 X10*3/uL (0.00-0.03); Imm Gran Pct Auto 1.3 % (0.0-0.4); Lymphocytes Percent Auto 11.6 % (20-40); Mean Corpuscular HGB Conc 31.8 g/dl (31.0-35.0); Mean Corpuscular Hemoglobin 30.4 pg (27.0-33.0); Mean Corpuscular Volume 95.8 fL (80.0-98.0); Mean Platelet Volume 10.8 fL (9.4-12.3); Monocytes Absolute Auto 0.7 X10*3/uL (0.1-1.2); Monocytes Percent Auto 7.8 % (2-11); Neutrophils Absolute Auto 6.7 x10*3/uL (2.0-8.3); Neutrophils Percent Auto 77.4 % (45-73); Platelet Count 263 X10*3/uL (160-400); Red Blood Count 4.01 X10*6/uL (4.20-5.50); Red Cell Distribution Width 13.2 % (11.0-16.0); White Blood Count 8.7 X10*3/uL (4.8-10.8)
[2022-02-23 11:58] LABS: Alanine Aminotransferase 51 U/L (0-31); Albumin Level 4.2 g/dL (3.5-5.0); Alkaline Phosphatase 74 U/L (39-117); Anion Gap 11 (12-20); Aspartate Amino Transferase 16 U/L (5-31); Bilirubin Total 0.8 mg/dL (0.0-1.0); Blood Urea Nitrogen 26 mg/dL (9-16); Calcium 9.7 mg/dL (8.4-10.2); Carbon Dioxide 28 mmol/L (22-29); Chloride 105 mmol/L (96-108); Cholesterol 151 mg/dL; Estimated Glomerular Filt Rate 26; Glucose Fasting 116 mg/dL (60-99); HDL Cholesterol 35 mg/dL; LDL Cholesterol Calculated 84 mg/dl; Potassium 4.3 mmol/L (3.3-5.1); Sodium 140 mmol/L (135-145); TSH reflex Free T4 0.38 uIU/mL (0.32-4.0); Total Protein 6.5 g/dL (6.5-8.0); Triglycerides 160 mg/dL
== END 2022-02-23 09:00 | disposition home or self-care (01) ==
LOC: HO.HMGCX 08:59
PROVIDERS: PCP Nurse Practitioner Family; Visit Provider Nurse Practitioner Family
DX: M25.531 Pain in right wrist (principal); M79.661 Pain in right lower leg; W19.XXXA Unspecified fall, initial encounter
CPT/HCPCS: 36415; 73110; 73130; 73590; 80053; 80061; 84443; 85025

== ENCOUNTER 2022-02-24 10:15 | Outpatient (REF) | payer MEDICARE, MEDICAID, SELFPAY ==
[2022-02-24 11:19] LABS: Appearance Urine Cloudy; Color Urine Yellow; Glucose Urine UA Negative (Negative); Leukocyte Esterase Urine Moderate (2+) (Negative); Nitrite Urine Positive (Negative); UMIC TRIGGER UA YES; UMIC TRIGGER UACC YES; Urine Blood Negative (Negative); Urine Ketones Negative (Negative); Urine Protein Negative (Neg-Trace)
[2022-02-24 11:27] LABS: Bacteria Urine 4+ (None Seen); Hyaline Casts Urine 0-2 /LPF (0-2); RBC Urine 0-2 /HPF (0-2); Squamous Epithelial Cell Urine 0-2 /HPF (0-2); UACC Culture Trigger YES; WBC Urine 21-50 /HPF (0-5)
== END 2022-02-24 10:16 | disposition home or self-care (01) ==
LOC: HO.HMGCLDS 10:15
PROVIDERS: PCP Nurse Practitioner Family; Visit Provider Nurse Practitioner Family
DX: N39.0 Urinary tract infection, site not specified (principal); I50.9 Heart failure, unspecified; I48.91 Unspecified atrial fibrillation; R53.81 Other malaise
CPT/HCPCS: 81001; 87086; 87088; 87186

== ENCOUNTER 2022-02-28 14:22 | Outpatient (REF) | payer MEDICARE, MEDICAID, SELFPAY | END 2022-02-28 14:23 | disposition home or self-care (01) | LOC: HO.HOSX 14:22 | PROVIDERS: Visit Provider Orthopaedic Surgery | DX: Z13.89 Encounter for screening for other disorder (principal) ==

== ENCOUNTER 2022-03-01 08:21 | Outpatient (REF) | payer MEDICARE, MEDICAID, SELFPAY ==
--- NOTE | ~2022-03-01 | XR_ITS ---
EXAMINATION: XR WRIST, RIGHT CLINICAL INFORMATION: Right wrist pain. COMPARISON: None TECHNIQUE: PA, lateral, and oblique views of the right wrist. FINDINGS: Oblique sclerosis and lucency is seen in the distal radius extending from the metastasis distally to the radiocarpal joint space. The distal ulna is intact. Mild calcification is seen in the triangular fibrocartilage. The carpal bones are normally aligned. The soft tissues are unremarkable. XR/XR wrist RT min 3V IMPRESSION: 1. Distal radial findings suggest possible subacute/chronic distal radial fracture. Correlation with physical exam and trauma history is recommended.
== END 2022-03-01 08:22 | disposition home or self-care (01) ==
LOC: HO.HOSX 08:21
PROVIDERS: Visit Provider Physician Assistant
DX: S52.501A Unspecified fracture of the lower end of right radius, initial encounter for closed fracture (principal)
CPT/HCPCS: 73110; 99202

== ENCOUNTER 2022-03-11 07:49 | Outpatient (REF) | payer MEDICARE, MEDICAID, SELFPAY ==
[2022-03-11 11:20] LABS: Appearance Urine Clear; Color Urine Yellow; Glucose Urine UA Negative (Negative); Leukocyte Esterase Urine Large (3+) (Negative); Nitrite Urine Negative (Negative); PH 6.5 (5.0-9.0); Specific Gravity - Urine <= 1.005 (1.005-1.025); UMIC TRIGGER UACC YES; Urine Blood Negative (Negative); Urine Ketones Negative (Negative); Urine Protein Negative (Neg-Trace)
[2022-03-11 11:30] LABS: Bacteria Urine None Seen (None Seen); Hyaline Casts Urine 0-2 /LPF (0-2); RBC Urine 0-2 /HPF (0-2); UACC Culture Trigger YES; WBC Urine 21-50 /HPF (0-5)
== END 2022-03-11 07:50 | disposition home or self-care (01) ==
LOC: HO.HMGCLDS 07:49
PROVIDERS: PCP Nurse Practitioner Family; Visit Provider Nurse Practitioner Family
DX: R30.0 Dysuria (principal)
CPT/HCPCS: 81001; 87086

== ENCOUNTER → 2022-03-22 08:44 | Outpatient (BNVA) | payer MEDICARE, MEDICAID, SELFPAY | PROVIDERS: PCP Nurse Practitioner Family; Referring Provider Nurse Practitioner Family; Visit Provider Internal Medicine Cardiovascular Disease | DX: I48.0 Paroxysmal atrial fibrillation (principal); I05.0 Rheumatic mitral stenosis; I50.9 Heart failure, unspecified | CPT/HCPCS: 93005; 99212 ==

== ENCOUNTER 2022-06-16 08:10 | Outpatient (REF) | payer MEDICARE, MEDICAID, SELFPAY ==
[2022-06-16 11:19] LABS: MANUAL DIFF FLAG NO
[2022-06-16 11:38] LABS: Appearance Urine Clear; Color Urine Yellow; Glucose Urine UA Negative (Negative); Leukocyte Esterase Urine Negative (Negative); Nitrite Urine Negative (Negative); PH 5.5 (5.0-9.0); Urine Blood Negative (Negative); Urine Ketones Negative (Negative); Urine Protein Negative (Neg-Trace)
[2022-06-16 11:48] LABS: Basophils Absolute Auto 0.1 X10*3/uL (0.0-0.2); Basophils Percent Auto 0.9 % (0-2); Eosinophils Absolute Auto 0.3 X10*3/uL (0.0-0.4); Eosinophils Percent Auto 4.5 % (0-4); Hematocrit 39.8 % (37.0-47.0); Hemoglobin 12.5 g/dl (12.0-16.0); Imm Gran Abs Auto 0.03 X10*3/uL (0.00-0.03); Imm Gran Pct Auto 0.4 % (0.0-0.4); Lymphocytes Absolute Auto 1.1 X10*3/uL (1.2-4.9); Lymphocytes Percent Auto 14.5 % (20-40); Mean Corpuscular HGB Conc 31.4 g/dl (31.0-35.0); Mean Corpuscular Hemoglobin 29.8 pg (27.0-33.0); Mean Platelet Volume 11.1 fL (9.4-12.3); Monocytes Absolute Auto 0.6 X10*3/uL (0.1-1.2); Monocytes Percent Auto 7.9 % (2-11); Neutrophils Absolute Auto 5.5 x10*3/uL (2.0-8.3); Neutrophils Percent Auto 71.8 % (45-73); Platelet Count 234 X10*3/uL (160-400); Red Blood Count 4.19 X10*6/uL (4.20-5.50); Red Cell Distribution Width 13.5 % (11.0-16.0); White Blood Count 7.6 X10*3/uL (4.8-10.8)
[2022-06-16 12:01] LABS: Alanine Aminotransferase 18 U/L (0-31); Albumin Level 4.3 g/dL (3.5-5.0); Alkaline Phosphatase 64 U/L (39-117); Anion Gap 13 (12-20); Aspartate Amino Transferase 17 U/L (5-31); Bilirubin Total 0.8 mg/dL (0.0-1.0); Blood Urea Nitrogen 43 mg/dL (9-16); Calcium 9.7 mg/dL (8.4-10.2); Carbon Dioxide 28 mmol/L (22-29); Chloride 106 mmol/L (96-108); Cholesterol 159 mg/dL; Estimated Glomerular Filt Rate 20; Glucose Fasting 108 mg/dL (60-99); HDL Cholesterol 40 mg/dL; LDL Cholesterol Calculated 99 mg/dl; Potassium 3.9 mmol/L (3.3-5.1); Sodium 143 mmol/L (135-145); Total Protein 6.9 g/dL (6.5-8.0); Triglycerides 100 mg/dL
[2022-06-16 12:36] LABS: TSH reflex Free T4 1.24 uIU/mL (0.32-4.0)
== END 2022-06-16 08:11 | disposition home or self-care (01) ==
LOC: HO.HMGCLDS 08:10
PROVIDERS: PCP Nurse Practitioner Family; Visit Provider Nurse Practitioner Family
DX: Z00.00 Encounter for general adult medical examination without abnormal findings (principal); R82.90 Unspecified abnormal findings in urine; E78.5 Hyperlipidemia, unspecified; R25.1 Tremor, unspecified
CPT/HCPCS: 36415; 80053; 80061; 81003; 84443; 85025; 87086

== ENCOUNTER → 2022-06-22 08:28 | Outpatient (BNVA) | payer MEDICARE, MEDICAID, SELFPAY | PROVIDERS: PCP Nurse Practitioner Family; Visit Provider Psychiatry & Neurology Neurology | DX: G25.2 Other specified forms of tremor (principal); G24.01 Drug induced subacute dyskinesia; T50.905D Adverse effect of unspecified drugs, medicaments and biological substances, subsequent encounter; R06.83 Snoring | CPT/HCPCS: 99202 ==

== ENCOUNTER → 2022-07-05 08:58 | Outpatient (REF) | payer MEDICARE, MEDICAID, SELFPAY | LOC: HO.SL 08:58 | PROVIDERS: PCP Nurse Practitioner Family; Visit Provider Psychiatry & Neurology Neurology | DX: G47.10 Hypersomnia, unspecified (principal); R06.83 Snoring | CPT/HCPCS: 95806 ==

== ENCOUNTER 2022-07-24 16:51 | Emergency (ER) | payer MEDICARE, MEDICAID, SELFPAY ==
--- NOTE | ~2022-07-24 | XR_ITS ---
Examination: XR ankle RT 2V, XR foot RT 2V Indication: Pain. Fall. Comparison: No pertinent prior studies are currently available for comparison. Technique: 3 views the ankle with 3 views the foot including a lateral view of the ankle and foot Findings: Left ankle: Mild soft tissue swelling laterally. Bones are normal anatomic alignment with no acute fracture or dislocation seen. Ankle mortise appears intact. No significant ankle joint effusion Left foot: There is a subtle ossific density with associated soft tissue swelling along the anterior dorsal aspect of the talus bone suggesting a small avulsion injury in this location. This is seen only on the lateral view. I do not appreciate any other acute fracture or dislocation within the foot. Calcaneal heel spur at the attachment point of the plantar aponeurosis noted XR/XR ankle RT 2V Impression: Soft tissue swelling about the lateral ankle with a subtle ossific density along the anterior dorsal aspect of the talus bone suggesting a small avulsion injury in this location.
--- NOTE | ~2022-07-24 | XR_ITS ---
Examination: XR ankle RT 2V, XR foot RT 2V Indication: Pain. Fall. Comparison: No pertinent prior studies are currently available for comparison. Technique: 3 views the ankle with 3 views the foot including a lateral view of the ankle and foot Findings: Left ankle: Mild soft tissue swelling laterally. Bones are normal anatomic alignment with no acute fracture or dislocation seen. Ankle mortise appears intact. No significant ankle joint effusion Left foot: There is a subtle ossific density with associated soft tissue swelling along the anterior dorsal aspect of the talus bone suggesting a small avulsion injury in this location. This is seen only on the lateral view. I do not appreciate any other acute fracture or dislocation within the foot. Calcaneal heel spur at the attachment point of the plantar aponeurosis noted XR/XR foot RT 2V Impression: Soft tissue swelling about the lateral ankle with a subtle ossific density along the anterior dorsal aspect of the talus bone suggesting a small avulsion injury in this location.
--- NOTE | ~2022-07-24 | CT_ITS ---
EXAMINATION: CT OF THE HEAD WITHOUT CONTRAST CT CERVICAL SPINE WITHOUT CONTRAST CLINICAL INFORMATION: Fall and hit door. COMPARISON: CT head 01/13/2022. CT chest 06/01/2021. TECHNIQUE: Contiguous axial imaging was performed from the skullbase to vertex without intravenous administration of contrast. Multidetector helical imaging was performed through the cervical spine. DOSE LOWERING TECHNIQUES: This CT examination was performed using dose optimization techniques as appropriate, variously including the following: - Automated exposure control - Adjustment of mA and/or kV according to patient size (this includes techniques or standardized protocols for targeted exams where dose is matched to indication/reason for exam; i.e. extremities or head) - Use of iterative reconstruction technique Dose-Length Product in mGycm: 896 FINDINGS: Head: There is no evidence of acute intracranial hemorrhage or territorial infarction. No abnormal mass-effect or midline shift is seen. [place] to white matter differentiation is well preserved. No extra-axial fluid collections are identified. The ventricles are normal in size. Brain parenchymal attenuation is normal. The osseous structures and soft tissues are normal. The mastoid air cells and visualized portions of the paranasal sinuses are well-aerated. Cervical spine: Straightening of normal lordosis. The prevertebral soft tissues appear normal. No fracture. Moderate degenerative disc disease at C5-C6. Small well-circumscribed fat density lucent lesions throughout the cervical spine and the upper thoracic spine (the upper thoracic spine lesions are similar to the prior study from 06/01/2021). This is consistent with yellow marrow deposits (reviewed with Dr. Salvador who concurs). CT/CT cervical spine wo IV con IMPRESSION: No acute intracranial pathology. No evidence of acute cervical spine traumatic injury.
[2022-07-24 16:59] VITALS: BP 151/61; PULSE 57; RESP 18; TEMP 36.4; O2SAT 97; BMI 33.3
--- NOTE | 2022-07-24 17:00 | ED.GENADULT ---
HPI - General Adult General Chief complaint: Fall Stated complaint: fall on head/ on blood thinners Time Seen by Provider: 07/24/22 19:11 Source: patient Mode of arrival: ambulatory Limitations: no limitations History of Present Illness HPI narrative: 76 yold female who is on blood thinners presents to the ED for falling. patient was walking fast without her walker and she tripped hit her head on the door. patient and daughter denies any loss of consciounsess. Patient states also some ankle pain. patient deenis any chest pain, shrotness of breath, abdominal pain, rectal bleeding, blood in urine, vomitting blood, or altered mental status. Patient should ambulate with walker, but patient refuses to do so as per daughter. patient denies any dizziness, abdominal pain,chest pain, or headache before falling. Related Data Home Medications Medication Instructions Recorded Confirmed albuterol sulfate 90 mcg/actuation 2 puff inhalation Q6H PRN Wheezing 09/23/20 06/16/22 aerosol inhaler (Ventolin HFA) cholecalciferol (vitamin D3) 50 50 mcg PO DAILY 09/23/20 06/16/22 mcg (2,000 unit) capsule lamotrigine 25 mg tablet 50 mg PO BEDTIME 09/23/20 06/16/22 melatonin 10 mg tablet 10 mg PO BEDTIME 03/31/21 06/16/22 olanzapine 7.5 mg tablet 1 tab PO BEDTIME 03/31/21 06/16/22 tiotropium 2.5 mcg-olodaterol 2.5 2 puff inhalation DAILY PRN 06/22/21 06/16/22 mcg/actuation mist for inhalation Shortness Of Breath (Stiolto Respimat) hydroxyzine HCl 10 mg tablet 10 mg PO ONCE 03/22/22 06/16/22 cranberry 500 mg capsule 1,000 mg PO DAILY 06/16/22 06/16/22 Previous Rx's Medication Instructions Recorded metoprolol succinate 25 mg 50 mg PO DAILY #180 tabs 10/29/21 tablet,extended release 24 hr simvastatin 20 mg tablet 20 mg PO BEDTIME #90 tabs 03/19/22 amiodarone 200 mg tablet 100 mg PO DAILY #90 tabs 03/22/22 furosemide 20 mg tablet 20 mg PO DAILY #30 tabs 04/25/22 apixaban 5 mg tablet (Eliquis) 5 mg PO BID #60 tabs 06/20/22 carbidopa 25 mg-levodopa 100 mg 0.5 tab PO BID #30 tabs 07/19/22 tablet (Sinemet) acetaminophen 325 mg capsule 325 mg PO QID PRN pain 7 days #28 07/24/22 caps Allergies Allergy/AdvReac Type Severity Reaction Status Date / Time Sulfa (Sulfonamide Allergy Severe RASH, Verified 07/24/22 16:59 Antibiotics) Anaphylaxis [SULFA (SULFONAMIDE ANTIBIOTICS)] Review of Systems Review of Systems: headache, and right ankle pain Yes all other systems are reviewed and are negative [facility] Past Medical History Medical History (Updated 07/25/22 @ 00:02 by Background Ladonna) SHARON (acute kidney injury) Atrial fibrillation Bipolar 1 disorder Coarse tremors COPD (chronic obstructive pulmonary disease) Dyslipidemia HTN (hypertension) Hypersomnia Kidney disease Leukocytosis [place] nephropathy Mediastinal lymphadenopathy Necrotizing granulomatous inflammation of lung Sarcoidosis Snoring Tardive dyskinesia Vitamin D deficiency Surgical History History of bronchoscopy History of cardioversion Family History Family History Child No Financial Resp No problems noted. Family/Other Substance use disorder Social History Social History Household Members: Family Household Members Other:: daughter lives downstairs Housing: House Are you a primary clinical care leader to a significant other at home: No Do you presently have visiting nurse or other home services: No Alcohol intake: never Patient Tobacco Use Status: Former Tobacco user Quit Date: 2013 Tobacco use type: Cigarette Years Smoked: 50 +/- e-Cigarette/Vaping Use: Never Used Second Hand Smoke Exposure: No Advance Directives: Yes Advance Directives on File: Yes Advance Directives Date on File: 04/26/21 service: No Current occupational status: retired 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 Current occupational exposures/hazards: No Cognitive needs: No Hearing needs: No Vision needs: Yes Physical Exam ED Vital Signs: Vital Signs - 24 hr 07/24/22 16:59 Temperature 97.6 F Pulse Rate 57 Respiratory Rate 18 Blood Pressure 151/61 H Pulse Oximetry 97 Oxygen Delivery Method Room Air BMI result Body Mass Index 33.3 Const General: cooperative, healthy appearing, comfortable, no acute distress, well developed, alert, awake and Physically active Orientation/consciousness: oriented to person, oriented to place, oriented to time and patient oriented x3 [facility] Head: Yes normal to inspection, Yes No palpable skull fracture present, Yes normocephalic, Yes atraumatic and No abrasion Eyes General: appearance normal, both eyes and all related structures Neck Neck: Yes normal visual inspection, Yes full ROM, Yes no lymphadenopathy, Yes no meningeal signs, Yes trachea midline, Yes supple, No anterior neck swelling and No tender Chest Chest palpation & inspection: normal inspection of the chest and normal palpation of entire chest wall Resp Effort & Inspection: normal respiratory effort and able to speak in complete sentences Auscultation: clear to auscultation bilaterally Cardio Jugular venous distension: no JVD Heart sounds: S1 normal heart sound present and S2 normal heart sound present GI Inspection: Yes normal to inspection and No abdominal wall ecchymosis Palpation (GI): Soft to palpation, not firm, nontender, no guarding and not rigid General: No CVA tenderness and Yes no CVA tenderness Back/Spine/Pelvis Back: no CVA tenderness, No CVA tenderness and No back tenderness Skin General skin exam: no rashes or lesions noted and elasticity normal Neuro General: oriented to person, oriented to place, oriented to time, patient oriented x3, tone normal, moves all extremities, Normal light touch and pain sensation, no meningeal signs, no focal motor deficits, CN's II-XI intact bilaterally and normal sensation to monofilament Extrem Ankle/foot/toe images: 1. tenderness on palpation. negative for ecchymsis, deformities, swelling, or redness. Motor, neuro, and vascular exam is intact. Psych Appearance: grossly normal, well kempt and not disheveled Course Course Course Narrative: RME: 76 yold female presents to the ED for head injury after falling and hitting head. patient tremors causes her to fall. patient was rushing into the house. patient refuses to use a walker to ambulate as per daughter. images ordered. There is no loss of conciousness. patient is on blood thinner/eliquis. Medical Decision Making Medical Decision Making MDM Narrative: 76 yold femael presents to the ED for hitting head. patient tripped and fell and hit head on door. Patient refuses to use walker as per daughter which leads to her falling. Patient and daughter denies any loss of concsciousness or any other trauma. images negative for fractures or brain bleed. Differential Diagnosis Differential Diagnoses: The differential diagnosis associated with the presentation includes (Skull fracture, brain bleed, ankle fracutre, ankle discolocation) Admission/Observation Consideration of admission/observation: Escalation of care including admission/observation considered Independent Interpretation I performed an independent interpretation of an: Plain X-Ray and CT Scan Radiology Impression Discussion of test interpretation with radiology: I have reviewed the radiologist's reading. Prescription Management I considered prescription management with: Pain Medication (tylenol) Discharge Plan Discharge Clinical Impression: Head injury, Avulsion fracture of talus Patient Disposition: Home, Self-Care Instructions: Talar Fracture in Adults (ED), Head Injury (ED) Additional Instructions: Return to the ED immediately for any nausea, vomiting, headache, rectal bleeding, vomiting blood, chest pain, shortness of breath, bloody urine, abdominal pain, lower extremity swelling, foot pain, calf pain, bluish black discoloration, or any other concerning symptoms. Please follow up with PCP and orthopedic Prescriptions: New acetaminophen 325 mg capsule 325 mg PO QID PRN (Reason: pain) 7 Days Qty: 28 0RF No Action metoprolol succinate 25 mg tablet extended release 24 hr 50 mg PO DAILY Qty: 180 3RF simvastatin 20 mg tablet 20 mg PO BEDTIME Qty: 90 1RF furosemide 20 mg tablet 20 mg PO DAILY Qty: 30 2RF Rx Instructions: only mon/wed/fri Eliquis 5 mg tablet 5 mg PO BID Qty: 60 5RF carbidopa-levodopa [Sinemet] 25-100 mg tablet 0.5 tab PO BID Qty: 30 0RF olanzapine 7.5 mg tablet 1 tab PO BEDTIME melatonin 10 mg Tablet 10 mg PO BEDTIME Stiolto Respimat 2.5-2.5 mcg/actuation mist 2 puff inhalation DAILY PRN (Reason: Shortness Of Breath) lamotrigine 25 mg tablet 50 mg PO BEDTIME cholecalciferol (vitamin D3) 50 mcg (2,000 unit) capsule 50 mcg PO DAILY albuterol sulfate [Ventolin HFA] 90 mcg/actuation HFA aerosol inhaler 2 puff inhalation Q6H PRN (Reason: Wheezing) cranberry 500 mg capsule 1,000 mg PO DAILY Rx Instructions: administer with meals hydroxyzine HCl 10 mg tablet 10 mg PO ONCE amiodarone 200 mg tablet 100 mg PO DAILY Qty: 90 3RF Referrals: [facility] [place] Orthopedic Surgeons [Provider Group] (Talus avulsion fracture) Interventions: ED Discharge Assessment Last Done: 07/24/22 19:31 Discharge Date/Time: 07/24/22 19:32
== END 2022-07-24 19:32 | disposition home or self-care (01) ==
PROVIDERS: Emergency Provider Emergency Medicine; PCP Nurse Practitioner Family
DX: S92.151A Displaced avulsion fracture (chip fracture) of right talus, initial encounter for closed fracture (principal); S09.90XA Unspecified injury of head, initial encounter; R51.9 Headache, unspecified; M54.2 Cervicalgia; W01.0XXA Fall on same level from slipping, tripping and stumbling without subsequent striking against object, initial encounter; Y93.9 Activity, unspecified; Y92.9 Unspecified place or not applicable; Y99.9 Unspecified external cause status; Z87.891 Personal history of nicotine dependence; Z79.899 Other long term (current) drug therapy
CPT/HCPCS: 70450; 72125; 73600; 73620; 99282; 99284

== ENCOUNTER 2022-09-01 08:47 | Outpatient (AMB) | payer MEDICARE, MEDICAID, SELFPAY ==
[2022-09-01 08:51] VITALS: BMI 33.3
--- NOTE | 2022-09-01 08:51 | A.OFFVIS_ITS ---
Intake Vital Signs 09/01/22 08:51 Height 5 ft 1 in Weight 176 lb BMI 33.3 Intake Visit Reasons: FC - right Avulsion talus fx, DOI 07/24/22 Intake Note: Nikki is a 76 year old female who presents today with her daughter for a fracture care appointment for her right ankle fx, DOI 07/24/22. Patient reports that she was walking fast without her walker and she tripped hit her head on the door. She states not pain at the moment. Denies numbness and tingling. Allergies Sulfa (Sulfonamide Antibiotics) [SULFA (SULFONAMIDE ANTIBIOTICS)] Allergy (Severe, Verified 09/01/22 08:54) RASH, Anaphylaxis HPI FC - right Avulsion talus fx, DOI 07/24/22 HPI Details 76-year-old female who presents in the office today, as a new patient, for an evaluation of right ankle pain. The patient presented to the ED on 07/24/2022 status post a fall that occurred after she was ambulating to fast without her walker and tripped. X-rays of the right ankle were obtained. She reports having no pain while in the office today. She denies numbness or tingling. She states she has tried to walk out of the boot and states she had no pain. Patient is accompanied in the office today by her daughter. [facility] Medical History SHARON (acute kidney injury) Atrial fibrillation Bipolar 1 disorder Coarse tremors COPD (chronic obstructive pulmonary disease) Dyslipidemia HTN (hypertension) Hypersomnia Kidney disease Leukocytosis [place] nephropathy Mediastinal lymphadenopathy Necrotizing granulomatous inflammation of lung Sarcoidosis Snoring Tardive dyskinesia Vitamin D deficiency Surgical History History of bronchoscopy History of cardioversion Family History Child No Financial Resp No problems noted. 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 Current occupational exposures/hazards: No Cognitive needs: No Hearing needs: No Vision needs: Yes Review of Systems Const All systems reviewed & are unremarkable except as noted in HPI and below Physical Exam Vital Signs: BMI result Body Mass Index 33.3 Const General: cooperative and no acute distress Orientation/consciousness: patient oriented x3 Resp Effort & Inspection: normal respiratory effort and able to speak in complete sentences Cardio Rate: regular rate Peripheral pulses: Peripheral pulses 2+ throughout GI Palpation (GI): Soft to palpation Skin Lesions: no lesions Rashes: no rashes Neuro General: patient oriented x3 Extrem Other: Right ankle: Normal to inspection. No ecchymosis, erythema, or edema. Patient is able to demonstrate dorsiflexion, plantar flexion, pronation and supination. No tenderness to palpation on the dorsal aspect of the right foot. Negative anterior drawer. Sensation intact. Pedal Pulse intact. Psych Mental Status: mental status grossly normal Office Procedures Fracture Care Fracture Billing Code: Fracture Billing Code Assessment & Plan Assessment & Plan (1) Avulsion fracture of right talus: Code(s): S92.151A - Displaced avulsion fracture (chip fracture) of right talus, initial encounter for closed fracture Plan Ms. Borjas is a 76-year-old female who presents in the office today, as a new patient, for an evaluation of right ankle pain. The patient presented to the ED on 07/24/2022 status post a fall that occurred after she was ambulating to fast without her walker and tripped. X-rays of the right ankle were obtained. She reports having no pain while in the office today. She denies numbness or tingling. She states she has tried to walk out of the boot and states she had no pain. Patient is accompanied in the office today by her daughter. The patient may begin to wean out of the boot into a supportive shoe. I educated the patient if she begins to have edema to elevate the foot and apply ice. Follow up will be PRN, or sooner if needed. X-rays of the right ankle, obtained on 07/24/2022, revealed: Soft tissue swelling about the lateral ankle with a subtle ossific density along the anterior dorsal aspect of the talus bone suggesting a small avulsion injury in this location. Patient Instructions: Scribed for Yareli Wang PA-C by María Styles chief medical officer, on 09/01/2022 at 8:48 am, EST. Your attestation Coding Level of Care Code New Pt Level 4 (95653) Diagnoses Avulsion fracture of right talus S92.151A CPT Codes Fracture Care - Fracture Billing Code: Fracture Billing Code ([id number])
== END 2022-09-01 09:07 | disposition home or self-care (01) ==
PROVIDERS: PCP Nurse Practitioner Family; Visit Provider Physician Assistant
DX: S92.151A Displaced avulsion fracture (chip fracture) of right talus, initial encounter for closed fracture (principal); W01.0XXA Fall on same level from slipping, tripping and stumbling without subsequent striking against object, initial encounter
CPT/HCPCS: 99214

== ENCOUNTER → 2022-09-01 08:47 | Outpatient (BNVA) | payer MEDICARE, MEDICAID, SELFPAY | PROVIDERS: PCP Nurse Practitioner Family; Visit Provider Physician Assistant | DX: S92.151A Displaced avulsion fracture (chip fracture) of right talus, initial encounter for closed fracture (principal) | CPT/HCPCS: 99212 ==

== ENCOUNTER 2022-09-01 10:03 | Emergency (ER) | payer OTHER, SELFPAY ==
[2022-09-01 10:08] VITALS: BP 125/68; BP 157/79; PULSE 57; PULSE 64; RESP 16; TEMP 37.2; O2SAT 94; BMI 32.2
[2022-09-01 10:09] VITALS: BP 125/68; PULSE 58; RESP 18; O2SAT 93
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
[2022-09-01] MEDS: hydrOXYzine HCL 25 MG TABLET PO (10:42)
== END 2022-09-01 11:16 | disposition home or self-care (01) ==
PROVIDERS: Emergency Provider Emergency Medicine Emergency Medical Services; PCP Nurse Practitioner Family
DX: M54.50 Low back pain, unspecified (principal); F41.1 Generalized anxiety disorder; F43.0 Acute stress reaction; I48.91 Unspecified atrial fibrillation; I10 Essential (primary) hypertension; Z87.891 Personal history of nicotine dependence; Z79.01 Long term (current) use of anticoagulants; Z79.899 Other long term (current) drug therapy
CPT/HCPCS: 99283; 99284

== ENCOUNTER → 2022-09-12 19:30 | Outpatient (REF) | payer MEDICARE, MEDICAID, SELFPAY | LOC: HO.SL 19:30 | PROVIDERS: PCP Nurse Practitioner Family; Visit Provider Nurse Practitioner Family | DX: G47.10 Hypersomnia, unspecified (principal); G47.19 Other hypersomnia; R06.83 Snoring | CPT/HCPCS: 95810 ==

== ENCOUNTER → 2022-09-12 19:30 | Outpatient (BNV) | payer MEDICARE, MEDICAID, SELFPAY | PROVIDERS: PCP Nurse Practitioner Family; Visit Provider Psychiatry & Neurology Neurology | DX: R06.83 Snoring (principal); R09.02 Hypoxemia | CPT/HCPCS: 95810 ==

== ENCOUNTER → 2022-10-06 12:44 | Outpatient (REF) | payer MEDICARE, MEDICAID, SELFPAY ==
--- NOTE | 2022-10-06 12:51 | CA_ITS ---
Transthoracic Echocardiogram Amended Patient (Last, First, Middle): Nikki Borjas J Gender: Female Date of : 1945 Age: 76 Procedure Date: 10/06/2022 Procedure Type: Transthoracic Echocardiogram Location: OP Height: 154.94 cm Weight: 77.11 kg BSA: 1.76 m2 Heart Rate: 62 bpm BP: 128 / 80 mmHg Hotel [employer] Facilities Manager: CHAITANYA Referring MD: Steven Castañeda MD Director Consumer: Steven Castañeda MD Symptoms: I50.9 - Heart failure, unspecified Study Quality: Adequate/pt term exam due to anxiety ECG Rhythm: Sinus Conclusions: - 1. Normal LV ejection fraction of 65-70% 2. Severely dilated left atrium 3. Calcific mitral valve disease with moderately severe to possibly severe mitral regurgitation and [id number] mitral stenosis 4. Severely elevated right ventricular systolic pressure 5. No gross pericardial effusion Findings Procedure Information The quality of the study was technically difficult. The study quality is limited by the patients inability to tolerate the test. Left Ventricle Normal left ventricular size, thickness, and systolic function. The visually estimated ejection fraction is between 65-70%. Right Ventricle Normal right ventricular cavity size and systolic function. Atria The left atrium is severely dilated. Interatrial shunt cannot be excluded. The right atrium is mildly dilated. Aortic Valve There is mild calcification of the aortic valve. There is no aortic valve stenosis. There is no aortic valve regurgitation. Mitral Valve There is moderate anterior and severe posterior mitral leaflet thickening. There is moderate mitral annular calcification. There is moderate to severe mitral valve regurgitation. There is mild to moderate mitral valve stenosis. Pulmonic Valve The pulmonic valve is likely normal. Tricuspid Valve There is mild to moderate tricuspid valve regurgitation. Normal right atrial pressure. Severe pulmonary hypertension is present. Great Vessels All visible segments of the aorta are normal in size. The pulmonary artery was not well visualized. Venous The inferior vena cava is normal in size and collapses greater than 50% with inspiration. Pericardium/Pleural There is no evidence of pericardial effusion. Prior Study Comparison Changes noted compared to prior study dated: 05/31/2021. Mitral regurgitation appears worse. RV systolic pressure is significantly elevated Measurements 2D Linear Measurements IVSd: 1.11 0.6-0.9/0.6-1.0 cm LVIDd: 4.91 3.9-5.3/4.2-5.9 cm LVIDd Index: 2.79 2.4-3.2/2.2-3.1 cm/m2 LVIDs: 2.75 2.0-3.6 cm LVPWd: 1.07 0.7-1.1 cm LA Diam: 5.10 2.7-3.8/3.0-4.0 cm LAIDs Index: 2.90 1.5-2.3 cm/m2 LV Mass: 247.55 67-162/88-224 g LV Mass Index: 140.65 43-95/49-115 g/m2 LVOT Diam: 2.00 3.0+(-)1.3 cm 2D Volumes LA Vol: 61.40 2D Systolic Function EF 4C: 71.10 >55% EF 2C: 71.00 >55% EF BiP: 69.80 >55% Mitral Valve MV VTI: 0.97 MV Pk Abel: 3.43 MV Mn Abel: 2.00 MV Pk Grad: 47.00 MV Mn Grad: 18.00 MV Pk E: 2.68 MV PK A: 1.88 MV Decel Time: 308.00 E/A: 1.40 E'Lateral: 5.51 E'Medial: 5.76 E/E' Med: 46.50 E/E' Lat: 48.60 PHT: 90.00 MVA PHT: 2.44 MVA Continuity: 0.67 Decel [place]: 8.71 MR Vol - PW Dopp: 64.05 MR VTI: 1.83 MR ERO: 35.00 MR Alias Abel: 0.39 MR RAD: 0.90 Aortic Valve AoV Pk Abel: 1.50 AoV Mn Abel: 1.01 AoV VTI: 0.34 AoV Pk Grad: 9.00 Aov Mn Grad: 5.00 KRISTOFER Cont.VTI: 1.95 LVOT LVOT Pk Abel: 0.92 LVOT Mn Abel: 0.59 LVOT VTI: 0.21 LVOT Pk Grad: 3.00 LVOT Mn Grad: 2.00 LVOT Diam: 2.00 LVOT Area: 3.14 Diastolic Function MV Pk E: 2.68 MV Pk A: 1.88 E/A: 1.40 E'Medial: 5.76 E/E' Med: 46.50 E' Laterial: 5.51 E/E' Lat: 48.60 Right Ventricle TAPSE (mm): 23.80 TVS' Abel: 10.90 Tricuspid Valve TR Pk Abel: 3.99 TR Pk Grad: 64.00 RA Press: 3.00 RVSP: 67.00 Great Vessels Aorta Sinus of Valsalva: 2.70 2.0-3.5 cm Ao Asc: 2.90 2.1-3.4 cm Pulmonary Veins Pulm Vein S/D 1.20 Pulmonary Valve PV Pk Abel: 0.74 Peak PV Grad: 2.00 Updated in Other Vendor System with Status of Final Steven Castañeda MD electronically signed on 10/07/2022 11:51:56 AM with status of Final
== END ==
LOC: HO.CARD 12:44
PROVIDERS: PCP Nurse Practitioner Family; Visit Provider Internal Medicine Cardiovascular Disease
DX: I50.9 Heart failure, unspecified (principal)
CPT/HCPCS: 93306

== ENCOUNTER → 2022-10-06 12:51 | Outpatient (BNV) | payer MEDICARE, MEDICAID, SELFPAY | PROVIDERS: PCP Nurse Practitioner Family; Visit Provider Internal Medicine Cardiovascular Disease | DX: I34.2 Nonrheumatic mitral (valve) stenosis (principal); I34.1 Nonrheumatic mitral (valve) prolapse | CPT/HCPCS: 93306 ==

== ENCOUNTER 2022-10-11 09:11 | Outpatient (AMB) | payer MEDICARE, MEDICAID, SELFPAY ==
[2022-10-11 09:13] VITALS: BP 124/60; PULSE 57; BMI 32.1
--- NOTE | 2022-10-11 09:13 | A.OFFVIS_ITS ---
Intake Vital Signs 10/11/22 09:13 Height 5 ft 1 in Weight 169 lb 12.095 oz BMI 32.1 BP 124/60 Blood Pressure Location Lt brachial Position Sitting Pulse 57 Intake Visit Reasons: f/up after testing Intake Note: f/up after testing pt felling more tired then usual Dental Chair Assembler Required: No Surgeon'S Assistant: Surgeon'S Assistant Present Accompanied by: Daughter Allergies Sulfa (Sulfonamide Antibiotics) [SULFA (SULFONAMIDE ANTIBIOTICS)] Allergy (Severe, Verified 10/11/22 09:22) RASH, Anaphylaxis Medication List - Last Reconciled 10/11/22 by PATEL Woodruff acetaminophen 325 mg PO QID PRN 7 days albuterol sulfate 90 mcg/actuation (Ventolin HFA) 2 puffs inhalation Q6H PRN amiodarone 100 mg (1/2 x 200 mg) PO DAILY apixaban (Eliquis) 5 mg PO BID cholecalciferol (vitamin D3) 50 mcg PO DAILY cranberry 1,000 mg PO DAILY furosemide 20 mg PO DAILY hydroxyzine HCl 10 mg PO ONCE lamotrigine 50 mg PO BEDTIME melatonin 10 mg PO BEDTIME metoprolol succinate ER 50 mg (2 x 25 mg) PO DAILY olanzapine 1 tab PO BEDTIME simvastatin 20 mg PO BEDTIME tiotropium-olodaterol 2.5-2.5 mcg/actuation (Stiolto Respimat) 2 puffs inhalation DAILY PRN HPI f/up after testing HPI Details Nikki is a 76-year-old female with past medical history of hypertension, hyperlipidemia, heart failure with preserved EF, paroxysmal AFib, mitral regurgitation and stenosis who presents for follow-up after recent echocardiogram. Today she reports that she is having unsteadiness with ambulation. She does not always use her cane and walker as she is supposed to. She has tremors but has no diagnosis of Parkinson's as of yet. She follows with Neurology and has tried carbidopa- levodopa without improvement. Daughter is present and confirms that she now has a [employer] GRADER TENDER who was with her most of the time. She did have a fall with a foot fracture this past spring. She reports some mild shortness of breath with activity but admits to being mostly sedentary. Daughter states she sleeps all the time. Patient denies chest discomfort at rest or with activity, presyncope, syncope, PND, orthopnea or edema. No weight gain recorded. [facility] Medical History SHARON (acute kidney injury) Atrial fibrillation Bipolar 1 disorder Coarse tremors COPD (chronic obstructive pulmonary disease) Dyslipidemia HTN (hypertension) Hypersomnia Kidney disease Leukocytosis [place] nephropathy Mediastinal lymphadenopathy Necrotizing granulomatous inflammation of lung Sarcoidosis Snoring Tardive dyskinesia Vitamin D deficiency Surgical History History of bronchoscopy History of cardioversion Family History Child No Financial Resp No problems noted. 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 Current occupational exposures/hazards: No Cognitive needs: No Hearing needs: No Vision needs: Yes Review of Systems Const Details: Sleepy, unsteady on feet All systems reviewed & are unremarkable except as noted in HPI and below Physical Exam Vital Signs: Last Vital Signs Pulse 57 10/11/22 09:13 BP 124/60 10/11/22 09:13 BMI result Body Mass Index 32.1 Const Other: Flat affect General: cooperative, comfortable and no acute distress Orientation/consciousness: patient oriented x3 Neck Neck: Yes normal visual inspection Resp Effort & Inspection: normal respiratory effort Auscultation: clear to auscultation bilaterally, no crackles, no rales, no rhonchi and no wheezes Cardio Jugular venous distension: no JVD Rate: regular rate Rhythm: regular rhythm Heart sounds: S1 normal heart sound present, S2 normal heart sound present, no gallops, no murmurs and no rubs Peripheral pulses: Peripheral pulses 2+ throughout Neuro General: patient oriented x3 Extrem Other: Upper extremity tremors noted. General: Yes normal to inspection Psych Appearance: grossly normal Mental Status: mental status grossly normal Speech and movement: Normal speech and movement present Office Procedures EKG Details: Today, read by me, sinus bradycardia, rate 57, QTC 457 milliseconds, no acute findings [id number], Complete Assessment & Plan Assessment & Plan (1) Mitral regurgitation: Code(s): I34.0 - Nonrheumatic mitral (valve) insufficiency Plan: History of mitral valve disease. Transesophageal echocardiogram done on 05/31/2021 shows EF 55-60%, severe mitral annular calcification, moderate mitral valve regurgitation, moderate mitral valve stenosis. Echocardiogram done 10/06/2022 shows EF 65-70%, severe dilated left atrium, moderately severe to possibly severe mitral regurgitation and [id number] mitral stenosis, severely elevated RVSP. Compared to last echo there appears to be progression of valve disease. Test results reviewed with her and daughter. She has history of heart failure with preserved EF. Today she reports no concerning symptoms. She denies PND, orthopnea, edema or weight gain. Currently on Lasix 20 mg daily. Instructed to monitor weight at home. If she notes notices weight gain greater than 3 lb or increasing shortness of breath she is to increase her Lasix to 40 mg daily for 3 days then go back to 20 mg. She has a known history of chronic kidney disease with last creatinine 2.41 on 06/16/2022. If she rate is requiring higher dose diuretics then will need closer monitoring of electrolytes and kidney function. At present will continue with medical management including good heart rate and blood pressure control. Discussed plan of care with patient and daughter. Cardiology follow-up 6 months, sooner if needed. Emergency care if ever needed for symptoms. (2) Mitral stenosis: Code(s): I05.0 - Rheumatic mitral stenosis Plan: As above (3) Congestive heart failure: Code(s): I50.9 - Heart failure, unspecified Plan: Stable at present. RV systolic pressure elevated on last echo. Patient denies any clinical changes in how she feels. Temporary Lasix increase if symptoms do occur. Low-salt diet reviewed. (4) Paroxysmal atrial fibrillation: Code(s): I48.0 - Paroxysmal atrial fibrillation Plan: History of paroxysmal atrial fibrillation. Currently suppressed with amiodarone 100 mg daily and metoprolol XL 50 mg daily. Pulse is regular on examination today and EKG confirms sinus bradycardia, rate 57. No reports of heart pa lpitations at home. She is on Eliquis for anticoagulation. The current dose is appropriate for her weight and age. She has unsteadiness with ambulation and should be using her assistive devices. This was reviewed with her. Daughter tells me that her granddaughter now lives with her and is her full-time SIEVE GRADER TENDER. Coding Level of Care Code Est Pt Level 4 (76126) Diagnoses Mitral regurgitation I34.0 Mitral stenosis I05.0 Congestive heart failure I50.9 Paroxysmal atrial fibrillation I48.0 CPT Codes EKG - CPT: 93874-[id number], Complete ([id number]) Time Spent (min) 28 Comment Chart review, documentation, interview, assessment, MD discussion
== END 2022-10-11 09:57 | disposition home or self-care (01) ==
PROVIDERS: PCP Nurse Practitioner Family; Visit Provider Nurse Practitioner Family
DX: I34.0 Nonrheumatic mitral (valve) insufficiency (principal); I50.9 Heart failure, unspecified; I48.0 Paroxysmal atrial fibrillation
CPT/HCPCS: 93010; 99214

== ENCOUNTER → 2022-10-11 09:11 | Outpatient (BNVA) | payer MEDICARE, MEDICAID, SELFPAY | PROVIDERS: PCP Nurse Practitioner Family; Visit Provider Nurse Practitioner Family | DX: I34.0 Nonrheumatic mitral (valve) insufficiency (principal); I05.0 Rheumatic mitral stenosis; I50.9 Heart failure, unspecified; I48.0 Paroxysmal atrial fibrillation | CPT/HCPCS: 93005; 99212 ==

== ENCOUNTER 2022-11-18 07:58 | Outpatient (REF) | payer MEDICARE, MEDICAID, SELFPAY ==
--- NOTE | ~2022-11-18 | MM_ITS ---
EXAMINATION: MM SCREENING DIGITAL BREAST TOMOSYNTHESIS, BILATERAL CLINICAL INFORMATION: Screening. Asymptomatic. COMPARISON: Mammography: This study is compared with prior exams dating back to 2016. TECHNIQUE: Digital breast tomosynthesis is performed in both the craniocaudal and mediolateral oblique views along with computer-aided detection (CAD). Synthesized 2D images are generated from the tomosynthesis. FINDINGS: The breasts are almost entirely fatty (ACR BI-RADS breast composition Category a). There are no significant masses, abnormal calcifications, or other abnormalities. There is a tissue marker present in the left breast from prior benign percutaneous biopsy. MM/MM tomosynthesis screening BI IMPRESSION: No mammographic evidence of malignancy. ASSESSMENT: BI-RADS BI-RADS 2 - Benign Findings RECOMMENDATION: Routine annual mammography screening. 1 year F/U This examination should not preclude the clinical evaluation of a suspicious palpable abnormality. This patient's information was entered into a reminder system with a target due date for their next mammogram.
== END 2022-11-18 07:59 | disposition home or self-care (01) ==
LOC: HO.MAMMO 07:58
PROVIDERS: PCP Nurse Practitioner Family; Visit Provider Nurse Practitioner Family
DX: Z12.31 Encounter for screening mammogram for malignant neoplasm of breast (principal); Z13.820 Encounter for screening for osteoporosis; Z78.0 Asymptomatic menopausal state
CPT/HCPCS: 77063; 77067; 77080

== ENCOUNTER → 2022-11-18 08:15 | Outpatient (BNV) | payer MEDICARE, MEDICAID, SELFPAY | PROVIDERS: PCP Nurse Practitioner Family; Visit Provider Radiology Diagnostic Radiology | DX: Z12.31 Encounter for screening mammogram for malignant neoplasm of breast (principal) | CPT/HCPCS: 77063; 77067 ==

== ENCOUNTER 2022-12-19 08:26 | Outpatient (AMB) | payer MEDICARE, MEDICAID, SELFPAY ==
--- NOTE | 2022-12-19 08:31 | A.OFFPC_ITS ---
Vital Signs 12/19/22 08:33 Height 5 ft 1 in Weight 198 lb BMI 37.4 BP 106/68 Blood Pressure Location Lt brachial Position Sitting Pulse 56 Pulse Source Pulse Oximeter Pulse Oximetry (%) 96 Oxygen Delivery Method Room Air Intake Visit Reasons: 6 Month follow up Allergies Sulfa (Sulfonamide Antibiotics) [SULFA (SULFONAMIDE ANTIBIOTICS)] Allergy (Severe, Verified 12/19/22 09:05) RASH, Anaphylaxis Medication List - Last Reconciled 12/19/22 by TRINIDAD Guo acetaminophen 325 mg PO QID PRN 7 days albuterol sulfate 90 mcg/actuation (Ventolin HFA) 2 puffs inhalation Q6H PRN amiodarone 100 mg (1/2 x 200 mg) PO DAILY apixaban (Eliquis) 5 mg PO BID cholecalciferol (vitamin D3) 50 mcg PO DAILY cranberry 1,000 mg PO DAILY furosemide 20 mg PO DAILY 60 days hydroxyzine HCl 10 mg PO ONCE lamotrigine 50 mg PO BEDTIME melatonin 10 mg PO BEDTIME metoprolol succinate ER 50 mg (2 x 25 mg) PO DAILY olanzapine 1 tab PO BEDTIME simvastatin 20 mg PO BEDTIME tiotropium-olodaterol 2.5-2.5 mcg/actuation (Stiolto Respimat) 2 puffs inhalation DAILY PRN Tobacco use date assessed: 06/16/22 Fall risk assessment: 1 Fall in past year Last assessed Fall Risk: 12/19/22 Dental Screening Dental Screen Date: 12/19/22 Did you have a dental visit in the last 12 months?: Yes Did you have a dental problem in the last 6 months where you did not have access to dental care?: No Was dental information given to patient?: Patient has dentist HPI 6 Month follow up HPI Details Pt's daughter reports that pt has ongoing tremors. She reports that these were worsened on carbidopa-levodopa so she stopped this. Pt has been tripping more and has weakness of her lower extremities. She is supposed to use a walker at home but does not. There is ? of tardive dyskinesia vs parkinsons. Pt is on multiple psych meds. Pt is following up with neurology, will reach out to them. Will order labs and EMG/nerve conduction testing (last testing was years ago). Pt follows up with nephrology and cardiology. Denies fever, chills, and dizziness. [facility] Medical History SHARON (acute kidney injury) Atrial fibrillation Bipolar 1 disorder Coarse tremors COPD (chronic obstructive pulmonary disease) Dyslipidemia HTN (hypertension) Hypersomnia Kidney disease Leukocytosis [place] nephropathy Mediastinal lymphadenopathy Necrotizing granulomatous inflammation of lung Sarcoidosis Snoring Tardive dyskinesia Vitamin D deficiency Surgical History History of cardioversion History of bronchoscopy Family History Child No Financial Resp No problems noted. 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 How often do you have a drink containing alcohol?: Never 2. How many drinks containing alcohol do you have on a typical day when you are drinking?: 1 or 2 3. How often do you have six or more drinks on one occasion?: Never Total Score: 0 CANDY-7 AMB Questionnaire CANDY-7 Date CANDY - 7 assessed: 06/16/22 Feeling nervous, anxious, or on edge: 1 = Several days Not being able to stop or control worryin = Several days Worrying too much about different things: 1 = Several days Trouble relaxin = Several days Being so restless that it is hard to sit still: 0 = Not at all Becoming easily annoyed or irritable: 0 = Not at all Feeling afraid as if something awful might happen: 0 = Not at all Total CANDY-7 score (0-4 normal; 5-9 mild; 10-14 moderate; 15-21 severe): 4 Source: Developed by Drs. Torrey Prater, Rylee De Leon, Winston Gutierrez and colleagues, with an educational eli from [employer] (acquired by [employer] in 2014). Review of Systems Const Reports as per HPI Physical exam (Primary Care) Vital Signs: Last Vital Signs Pulse 56 12/19/22 08:33 BP 106/68 12/19/22 08:33 Pulse Ox 96 12/19/22 08:33 Oxygen Delivery Method Room Air 12/19/22 08:33 BMI result Body Mass Index 37.4 Tobacco/Smoking Status: Tobacco use Status Tobacco use date assessed 06/16/22 12/19/22 08:31 Patient Tobacco Use Status Former Tobacco user 12/19/22 08:31 Tobacco use type Cigarette 12/19/22 08:31 e-Cigarette/Vaping Use Never Used 12/19/22 08:31 Thrive Assessment: Date of Thrive Assessment Date Thrive assessed 06/16/22 12/19/22 08:31 Const General: cooperative Nutritional Appearance: obese Orientation/consciousness: patient oriented x3 Resp Other: lungs diminished though moving air bilat Effort & Inspection: normal respiratory effort Cardio Rate: regular rate Rhythm: regular rhythm Heart sounds: S1 normal heart sound present, S2 normal heart sound present and Murmur heart sound present systolic Neuro General: patient oriented x3 Extrem Other: + DTRs, good sensation, + dorsalis pedis pulses, weakness to LLE with extension against resistance, hand tremors noted Right lower extremity: no edema Left lower extremity: no edema Psych Appearance: grossly normal Mental Status: mental status grossly normal Speech and movement: Normal speech and movement present Affect: normal affect Attitude: cooperative Thought process: Normal thought process present Thought content: Normal thought content present Insight: Good insight present (Psych) Judgement: Good judgement present (Psych) Assessment and Plan Assessment & Plan (1) Physical deconditioning: Code(s): R53.81 - Other malaise Plan: Labs ordered (2) Weakness of both lower extremities: Code(s): R29.898 - Other symptoms and signs involving the musculoskeletal system Plan: EMG/nerve conduction testing ordered Plan The patient agreed to the use of a emergency medicine medical director for this encounter. Scribed for BRENTON Marte-BC by Maria Luisa Kenyon emergency medicine medical director, on 12/19/2022 at 08:40 EST. Orders: Orders Complete Blood Count Auto Diff Today R53.81 - Other malaise Comprehensive Met. Panel Today R53.81 - Other malaise Lipid Panel Today R53.81 - Other malaise TSH reflex Free T4 Today R53.81 - Other malaise UA CC w/rflx Micro + Cult Today R53.81 - Other malaise NE nerve conduction velocity Today R29.898 - Other symptoms and signs involving the musculoskeletal system NE electromyogram (EMG) Today R29.898 - Other symptoms and signs involving the musculoskeletal system Vitamin B12 and Folate Today R29.898 - Other symptoms and signs involving the musculoskeletal system Coding Level of Care Code Est Pt Level 3 (09233) Diagnoses Physical deconditioning R53.81 Weakness of both lower extremities R29.898
[2022-12-19 08:33] VITALS: BP 106/68; PULSE 56; O2SAT 96; BMI 37.4
== END 2022-12-19 09:52 | disposition home or self-care (01) ==
PROVIDERS: Visit Provider Nurse Practitioner Family
DX: R53.81 Other malaise (principal); R29.898 Other symptoms and signs involving the musculoskeletal system
CPT/HCPCS: 99213

== ENCOUNTER 2022-12-19 08:58 | Outpatient (REF) | payer MEDICARE, MEDICAID, SELFPAY ==
[2022-12-19 12:03] LABS: MANUAL DIFF FLAG NO
[2022-12-19 12:05] LABS: Basophils Absolute Auto 0.1 X10*3/uL (0.0-0.2); Basophils Percent Auto 0.6 % (0-2); Eosinophils Absolute Auto 0.4 X10*3/uL (0.0-0.4); Eosinophils Percent Auto 3.9 % (0-4); Hematocrit 38.7 % (37.0-47.0); Hemoglobin 12.2 g/dl (12.0-16.0); Imm Gran Abs Auto 0.04 X10*3/uL (0.00-0.03); Imm Gran Pct Auto 0.4 % (0.0-0.4); Lymphocytes Absolute Auto 0.9 X10*3/uL (1.2-4.9); Lymphocytes Percent Auto 9.1 % (20-40); Mean Corpuscular HGB Conc 31.5 g/dl (31.0-35.0); Mean Corpuscular Hemoglobin 30.3 pg (27.0-33.0); Mean Platelet Volume 10.8 fL (9.4-12.3); Monocytes Absolute Auto 0.7 X10*3/uL (0.1-1.2); Monocytes Percent Auto 7.3 % (2-11); Neutrophils Absolute Auto 7.5 x10*3/uL (2.0-8.3); Neutrophils Percent Auto 78.7 % (45-73); Platelet Count 212 X10*3/uL (160-400); Red Blood Count 4.03 X10*6/uL (4.20-5.50); White Blood Count 9.6 X10*3/uL (4.8-10.8)
[2022-12-19 12:58] LABS: Alanine Aminotransferase 9 U/L (0-31); Albumin Level 4.2 g/dL (3.5-5.0); Alkaline Phosphatase 56 U/L (39-117); Anion Gap 14 (12-20); Aspartate Amino Transferase 15 U/L (5-31); Bilirubin Total 0.8 mg/dL (0.0-1.0); Blood Urea Nitrogen 22 mg/dL (9-16); Calcium 9.8 mg/dL (8.4-10.2); Carbon Dioxide 27 mmol/L (22-29); Chloride 103 mmol/L (96-108); Cholesterol 170 mg/dL (<200); Estimated Glomerular Filt Rate 23; Glucose Random 97 mg/dL (60-115); HDL Cholesterol 46 mg/dL (>40); LDL Cholesterol Calculated 99 mg/dL (<100); Potassium 4.6 mmol/L (3.3-5.1); Sodium 139 mmol/L (135-145); TSH reflex Free T4 1.85 uIU/mL (0.32-4.0); Total Protein 6.8 g/dL (6.5-8.0); Triglycerides 126 mg/dL (<150)
[2022-12-19 13:03] LABS: Folate 15.9 ng/mL (> or = 4.0); Vitamin B12 507 pg/mL (200-900)
== END 2022-12-19 08:59 | disposition home or self-care (01) ==
LOC: HO.HMGCLDS 08:58
PROVIDERS: PCP Nurse Practitioner Family; Visit Provider Nurse Practitioner Family
DX: Z13.89 Encounter for screening for other disorder (principal)
CPT/HCPCS: 36415; 80053; 80061; 82607; 82746; 84443; 85025

== ENCOUNTER 2022-12-19 12:00 | Outpatient (REF) | payer MEDICARE, MEDICAID, SELFPAY ==
[2022-12-20 13:34] LABS: Appearance Urine Clear; Color Urine Yellow; Glucose Urine UA Negative (Negative); Leukocyte Esterase Urine Negative (Negative); Nitrite Urine Negative (Negative); Specific Gravity - Urine <= 1.005 (1.005-1.025); Urine Blood Negative (Negative); Urine Ketones Negative (Negative); Urine Protein Negative (Neg-Trace)
== END 2022-12-19 12:01 | disposition home or self-care (01) ==
LOC: HO.HMGCLNP 12:00
PROVIDERS: PCP Nurse Practitioner Family; Visit Provider Nurse Practitioner Family
DX: R53.81 Other malaise (principal); I50.9 Heart failure, unspecified
CPT/HCPCS: 36415; 80053; 80061; 81003; 82607; 82746; 84443; 85025

== ENCOUNTER 2023-01-03 11:27 | Outpatient (AMB) | payer MEDICARE, MEDICAID, SELFPAY ==
--- NOTE | 2023-01-03 11:30 | MHC.OFFVIS ---
Intake Vital Signs 01/03/23 11:37 Weight 181 lb 6 oz BP 120/66 Blood Pressure Location Rt brachial Position Sitting Pulse 54 Pulse Source Pulse Oximeter Pulse Oximetry (%) 96 Oxygen Delivery Method Room Air Intake Visit Reasons: f/u for tremors/weakness - Per MD see workload Intake Note: F/U tremors and weakness, daughter states patient is stumbling more and mom does not lift her legs as well anymore Electrical Accessories Ii Assembler Required: No Allergies Sulfa (Sulfonamide Antibiotics) [SULFA (SULFONAMIDE ANTIBIOTICS)] Allergy (Severe, Verified 01/03/23 11:31) RASH, Anaphylaxis HPI HPI Comments History of Present Illness Details 77 y/o right handed female comes for evaluation of tremors. Pt reports her hands tremor has been worsened with Sinemet 0.5 mg BID. She stopped taking Sinemet and the hands tremor decreased. The tremors are mostly with action and posture, and can be worse with anxiety. Pt has some trouble for eating, dressing and writing, has LICENSED PSYCHOLOGIST DIRECTOR for help. Pt's daughter reports patient dragging her legs, and can't lift up. She did not do physical therapy yet. Her right eye a little dropping. The tremors are in her bilateral hands started about 10 years ago and has recently worsened. 10 years ago she was on Glenn for about 30 years . Glenn was stopped due to renal toxicity and failure more than 5 years ago.she did not notice improvement in her tremors. The PSG sleep study result was no evidence of sleep apnea or sleep related movement disorder. [facility] Medical History Tardive dyskinesia Coarse tremors Hypersomnia Snoring SHARON (acute kidney injury) Mediastinal lymphadenopathy Atrial fibrillation Dyslipidemia Kidney disease Leukocytosis Necrotizing granulomatous inflammation of lung Bipolar 1 disorder Vitamin D deficiency COPD (chronic obstructive pulmonary disease) Sarcoidosis HTN (hypertension) [place] nephropathy Surgical History History of cardioversion History of bronchoscopy Family History Child No Financial Resp No problems noted. Family/Other Substance use disorder Social History (Updated 01/03/23 @ 11:37 by Stefanie Dean CMA) Household Members: Family Household Members Other:: daughter lives downstairs Housing: House Are you a primary interior plant caretaker to a significant other at home: No Do you presently have visiting nurse or other home services: No Alcohol intake: never Patient Tobacco Use Status: Former Tobacco user Quit Date: 2013 Tobacco use type: Cigarette Years Smoked: 50 +/- e-Cigarette/Vaping Use: Never Used Second Hand Smoke Exposure: No Advance Directives Date on File: 04/26/21 service: No Current occupational status: retired 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 Current occupational exposures/hazards: No Cognitive needs: No Hearing needs: No Vision needs: Yes Review of Systems Const All systems reviewed & are unremarkable except as noted in HPI and below Physical Exam Vital Signs: Last Vital Signs Pulse 54 01/03/23 11:37 BP 120/66 01/03/23 11:37 Pulse Ox 96 01/03/23 11:37 Oxygen Delivery Method Room Air 01/03/23 11:37 Const Other: Flat affect General: cooperative, comfortable and no acute distress Orientation/consciousness: patient oriented x3 Neck Neck: Yes normal visual inspection Resp Effort & Inspection: normal respiratory effort Auscultation: clear to auscultation bilaterally, no crackles, no rales, no rhonchi and no wheezes Cardio Jugular venous distension: no JVD Rate: regular rate Rhythm: regular rhythm Heart sounds: S1 normal heart sound present, S2 normal heart sound present, no gallops, no murmurs and no rubs Peripheral pulses: Peripheral pulses 2+ throughout Neuro General: patient oriented x3 Extrem Other: Upper extremity tremors noted. General: Yes normal to inspection Psych Appearance: grossly normal Mental Status: mental status grossly normal Speech and movement: Normal speech and movement present Assessment & Plan Assessment & Plan (1) Coarse tremors: Comment: tremors are likely related to exposure to lithium, amiodarone and olanzapine? tardive tremors, tardive parkinsonism. she does have some extrapyramidal features. But unlikely to be idiopathic Parkinsons disease. Code(s): G25.2 - Other specified forms of tremor (2) Tardive dyskinesia: Comment: mild Code(s): G24.01 - Drug induced subacute dyskinesia (3) Weakness of both lower extremities: Code(s): R29.898 - Other symptoms and signs involving the musculoskeletal system Plan Advised patient to try occupational therapy for hands tremor and strength. Refer patient to physical therapy for gait training and lower extremities strength. I will consider LEANDRA scan in future. Orders: Orders PT Evaluation and Treatment 12 Weeks R29.898 - Other symptoms and signs involving the musculoskeletal system OT Evaluation and Treatment 12 Weeks G24.01 - Drug induced subacute dyskinesia, G25.2 - Other specified forms of tremor, R25.1 - Tremor, unspecified Coding Level of Care Code Est Pt Level 4 (43052) Diagnoses Coarse tremors G25.2 Tardive dyskinesia G24.01 Weakness of both lower extremities R29.898
[2023-01-03 11:37] VITALS: BP 120/66; PULSE 54; O2SAT 96
== END 2023-01-03 12:15 | disposition home or self-care (01) ==
PROVIDERS: PCP Nurse Practitioner Family; Visit Provider Nurse Practitioner Family
DX: G25.2 Other specified forms of tremor (principal); G24.01 Drug induced subacute dyskinesia; R29.898 Other symptoms and signs involving the musculoskeletal system
CPT/HCPCS: 99214

== ENCOUNTER → 2023-01-03 11:27 | Outpatient (BNVA) | payer MEDICARE, MEDICAID, SELFPAY | PROVIDERS: PCP Nurse Practitioner Family; Visit Provider Nurse Practitioner Family | DX: G25.2 Other specified forms of tremor (principal); G24.01 Drug induced subacute dyskinesia; R29.898 Other symptoms and signs involving the musculoskeletal system | CPT/HCPCS: 99212 ==

== ENCOUNTER 2023-01-04 10:01 | Outpatient (REF) | payer MEDICARE, MEDICAID, SELFPAY | END 2023-01-04 10:02 | disposition home or self-care (01) | LOC: HO.NEURO 10:01 | PROVIDERS: PCP Nurse Practitioner Family; Visit Provider Nurse Practitioner Family | DX: R29.898 Other symptoms and signs involving the musculoskeletal system (principal) | CPT/HCPCS: 95885; 95911 ==

== ENCOUNTER 2023-04-18 08:56 | Outpatient (REF) | payer MEDICARE, MEDICAID, SELFPAY ==
[2023-04-18 10:34] LABS: B Type Natriuretic Peptide 421 pg/mL (<100)
[2023-04-18 10:53] LABS: Anion Gap 14 (12-20); Blood Urea Nitrogen 30 mg/dL (9-16); Calcium 9.9 mg/dL (8.4-10.2); Carbon Dioxide 26 mmol/L (22-29); Chloride 105 mmol/L (96-108); Estimated Glomerular Filt Rate 23; Glucose Random 91 mg/dL (60-115); Potassium 3.9 mmol/L (3.3-5.1); Sodium 141 mmol/L (135-145)
== END 2023-04-18 08:57 | disposition home or self-care (01) ==
LOC: HO.LAB 08:56
PROVIDERS: PCP Nurse Practitioner Family; Visit Provider Internal Medicine Cardiovascular Disease
DX: I50.9 Heart failure, unspecified (principal); I48.0 Paroxysmal atrial fibrillation; I05.0 Rheumatic mitral stenosis; Z79.01 Long term (current) use of anticoagulants; Z79.899 Other long term (current) drug therapy
CPT/HCPCS: 36415; 80048; 83880; 93005; 99212

== ENCOUNTER 2023-04-18 08:56 | Outpatient (AMB) | payer MEDICARE, MEDICAID, SELFPAY ==
[2023-04-18 08:59] VITALS: BP 124/70; PULSE 63; BMI 28.7
--- NOTE | 2023-04-18 08:59 | A.OFFVIS_ITS ---
Intake Vital Signs 04/18/23 08:59 Height 5 ft 1 in Weight 151 lb 10.848 oz BMI 28.7 BP 124/70 Blood Pressure Location Lt brachial Position Sitting Pulse 63 Pulse Source Pulse Oximeter Intake Visit Reasons: 6 mth f/up Intake Note: PT is here for 6 month with EKG Bootmaker Required: No Accompanied by: Daughter Allergies Sulfa (Sulfonamide Antibiotics) [SULFA (SULFONAMIDE ANTIBIOTICS)] Allergy (Severe, Verified 01/03/23 11:31) RASH, Anaphylaxis Medication List - Last Reconciled 04/18/23 by Steven Castañeda MD acetaminophen 325 mg PO QID PRN 7 days albuterol sulfate 90 mcg/actuation (Ventolin HFA) 2 puffs inhalation Q6H PRN amiodarone 100 mg (1/2 x 200 mg) PO DAILY apixaban (Eliquis) 5 mg PO BID azithromycin mg PO cholecalciferol (vitamin D3) 50 mcg PO DAILY cranberry 1,000 mg PO DAILY xilquztkthu-mwrzqyvfn-ztfhshro 100-62.5-25 mcg (Trelegy Ellipta) 1 inh inhalation DAILY furosemide 20 mg PO DAILY hydroxyzine HCl 10 mg PO ONCE lamotrigine 50 mg PO BEDTIME melatonin 10 mg PO BEDTIME metoprolol succinate ER 50 mg (2 x 25 mg) PO DAILY olanzapine 1 tab PO BEDTIME simvastatin 20 mg PO BEDTIME HPI HPI Comments History of Present Illness Details Nikki comes for follow-up, accompanied by her daughter. Last week she had some buildup of fluid with increased shortness of breath and congestion along with some leg swelling. Daughter gave her extra Lasix for couple of days and symptoms resolved. She takes Lasix every other day. With this regimen she is doing well. No major bleeding issues or neurologic events. Continues to have issue with tremors and myoclonic jerks. Is at risk for fall but does not use a walker. Denies any orthopnea, PND, leg edema. Denies any prolonged palpitation irregular heartbeat. Takes all her medications regularly. [facility] Medical History Tardive dyskinesia Coarse tremors Hypersomnia Snoring SHARON (acute kidney injury) Mediastinal lymphadenopathy Atrial fibrillation Dyslipidemia Kidney disease Leukocytosis Necrotizing granulomatous inflammation of lung Bipolar 1 disorder Vitamin D deficiency COPD (chronic obstructive pulmonary disease) Sarcoidosis HTN (hypertension) [place] nephropathy Surgical History History of cardioversion History of bronchoscopy Family History Child No Financial Resp No problems noted. 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 Current occupational exposures/hazards: No Cognitive needs: No Hearing needs: No Vision needs: Yes Review of Systems Const Denies chills, Denies fatigue, Denies fever(s), Denies frequent falls, Denies weakness, Denies weight gain and Denies weight loss ENT Denies dizziness Card Denies chest pain, Denies leg edema, Denies lightheadedness, Denies palpitations, Denies dyspnea, Denies dyspnea on exertion, Denies orthopnea and Denies other (loss of consciousness) Resp Denies cough, Denies dyspnea and Denies dyspnea on exertion GI Denies hematochezia and Denies change in stool character Musc Denies abnormal gait, Denies muscle weakness, Denies numbness, Denies radiating pain into limb and Denies tingling Neuro Denies abnormal gait, Denies dizziness, Denies frequent falls, Denies numbness, Denies tingling and Denies weakness Endo Denies fatigue and Denies palpitations Physical Exam Vital Signs: Last Vital Signs Pulse 63 04/18/23 08:59 BP 124/70 04/18/23 08:59 BMI result Body Mass Index 28.7 Const General: cooperative, comfortable and no acute distress Neck Neck: Yes normal visual inspection and Yes no JVD Resp Effort & Inspection: normal respiratory effort Auscultation: clear to auscultation bilaterally, no crackles, no rales, no rhonchi and no wheezes Cardio Jugular venous distension: no JVD Rate: regular rate Rhythm: regular rhythm Heart sounds: S1 normal heart sound present, S2 normal heart sound present, no gallops, no murmurs and no rubs GI Inspection: Yes normal to inspection Extrem General: Yes normal to inspection and No no pedal edema Psych Appearance: grossly normal Mental Status: mental status grossly normal Office Procedures EKG Details: EKG shows normal sinus rhythm with normal EKG at 63 beats per minute with normal intervals [id number], Complete Assessment & Plan Assessment & Plan (1) Paroxysmal atrial fibrillation: Code(s): I48.0 - Paroxysmal atrial fibrillation Plan: Paroxysmal atrial fibrillation has done well well with rhythm control approach with no worsening heart failure syndrome. Atrial fibrillation multifactorial related to calcific mitral valve disease as well as hypertension. Clinically doing well with rhythm control on low-dose amiodarone. Continue the same. Annual check for amiodarone toxicity. Continue concomitant metoprolol therapy. Advised to call me with worsening symptoms. Continue full oral anticoagulation, currently on Eliquis 5 mg b.i.d.. Quarterly renal function test should be pursued. We discussed about fall prevention technique. (2) Congestive heart failure: Code(s): I50.9 - Heart failure, unspecified Plan: Congestive heart failure with multiple comorbidities including atrial fibrillation, frailty, chronic kidney disease, calcific mitral valve disease. Clinically doing well on every other day Lasix. Patient's daughter identifies symptoms preceding development of fluid overload and takes extra Lasix with resolution for symptoms. She is doing well with this regimen. Continue the same. Continue monitor renal function closely. Will follow-up echocardiogram 6 months time. Continue aggressive blood pressure control. Avoidance of salt loading and daily weight monitoring was discussed. Goals of therapy were discussed. Will follow up in the clinic in 6 months time, sooner p.r.n.. Thank you for allowing me to partake in her care Orders: Orders B Type Natriuretic Peptide Today I50.9 - Heart failure, unspecified CA echo transthoracic complete 6 Months I05.0 - Rheumatic mitral stenosis, I34.0 - Nonrheumatic mitral (valve) insufficiency, I50.9 - Heart failure, unspecified Basic Metabolic Panel Today I50.9 - Heart failure, unspecified Medications: Changed From furosemide 20 mg PO DAILY 90 tabs 1RF I50.9 - Heart failure, unspecified To furosemide 20 mg PO Q OTHER DAY 90 tabs 3RF I50.9 - Heart failure, unspecified Coding Level of Care Code Est Pt Level 4 (74766) Diagnoses Paroxysmal atrial fibrillation I48.0 Congestive heart failure I50.9 CPT Codes EKG - CPT: 73798-[id number], Complete ([id number])
== END 2023-04-18 09:20 | disposition home or self-care (01) ==
PROVIDERS: PCP Nurse Practitioner Family; Visit Provider Internal Medicine Cardiovascular Disease
DX: I48.0 Paroxysmal atrial fibrillation (principal); I50.9 Heart failure, unspecified
CPT/HCPCS: 93010; 99214

== ENCOUNTER 2023-05-26 09:19 | Outpatient (AMB) | payer MEDICARE, MEDICAID, SELFPAY ==
--- NOTE | 2023-05-26 09:25 | A.OFFVIS_ITS ---
Intake Vital Signs 05/26/23 09:34 Height 5 ft 1 in Weight 184 lb 8 oz BMI 34.9 BP 115/70 Blood Pressure Location Lt brachial Position Sitting Pulse 55 Pulse Source Pulse Oximeter Pulse Oximetry (%) 95 Oxygen Delivery Method Room Air Intake Visit Reasons: 4 mnts f/u appt Intake Note: Patient presents for 4 months F/U. Pt. went [facility] [place] and had a nerve conduction test on 01/04/23. They suggested a Parkinson's test. Allergies Sulfa (Sulfonamide Antibiotics) [SULFA (SULFONAMIDE ANTIBIOTICS)] Allergy (Severe, Verified 05/26/23 09:33) RASH, Anaphylaxis HPI HPI Comments History of Present Illness Details 77 y/o right handed female comes for [facility] up of tremors and TD. Pt's daughter reports that her hands movement and mouth movement can be worse with anxiety. The tremors are in her bilateral hands started about 10 years ago and has recently worsened. She was taking Corley for about 30 years. Corley was stopped due to renal toxicity and failure more than 5 years ago, she did not notice improvement in her tremors. Pt has some trouble for eating, dressing and writing, has COMMERCIAL KITCHEN SERVICE TECHNICIAN for help. Pt's daughter reports that patient started to have upper body movement about 2 months ago and patient also makes noise, Hm unintentionally. She still on olanzapine 7.5 mg qHS and can't off it. Pt reports her hands tremor has been worsened with Sinemet 0.5 tab BID. She stopped taking Sinemet and the hands tremor decreased. Pt uses walker, no falls but very unsteady and couln't do physical therapy. Pt has hx of Afib, HF, and valve regurgitation, and is on amiodarone. [facility] Medical History (Updated 05/27/23 @ 15:13 by Mabel Hernandez CNP) Emphysema of lung Tardive dyskinesia Coarse tremors Hypersomnia Snoring SHARON (acute kidney injury) Mediastinal lymphadenopathy Atrial fibrillation Dyslipidemia Kidney disease Leukocytosis Necrotizing granulomatous inflammation of lung Bipolar 1 disorder Vitamin D deficiency COPD (chronic obstructive pulmonary disease) Sarcoidosis HTN (hypertension) [place] nephropathy Surgical History History of cardioversion History of bronchoscopy Family History Child No Financial Resp No problems noted. 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 Current occupational exposures/hazards: No Cognitive needs: No Hearing needs: No Vision needs: Yes Review of Systems Const All systems reviewed & are unremarkable except as noted in HPI and below Physical Exam Vital Signs: Last Vital Signs Pulse 55 05/26/23 09:34 BP 115/70 05/26/23 09:34 Pulse Ox 95 05/26/23 09:34 Oxygen Delivery Method Room Air 05/26/23 09:34 BMI result Body Mass Index 34.9 Const Other: Flat affect General: cooperative, comfortable and no acute distress Orientation/consciousness: patient oriented x3 Neck Neck: Yes normal visual inspection Resp Effort & Inspection: normal respiratory effort Auscultation: clear to auscultation bilaterally, no crackles, no rales, no rhonchi and no wheezes Cardio Jugular venous distension: no JVD Rate: regular rate Rhythm: regular rhythm Heart sounds: S1 normal heart sound present, S2 normal heart sound present, no gallops, no murmurs and no rubs Peripheral pulses: Peripheral pulses 2+ throughout Neuro Other: Mild mouth and hands movement. General: patient oriented x3 Gait exam (Neuro): Assisted gait required Motor exam (neuro): 5/5 motor strength present throughout Extrem Other: Upper extremity tremors noted. General: Yes normal to inspection Psych Appearance: grossly normal Mental Status: mental status grossly normal Speech and movement: Normal speech and movement present Assessment & Plan Assessment & Plan (1) Tardive dyskinesia: Comment: Mild Code(s): G24.01 - Drug induced subacute dyskinesia (2) Weakness of both lower extremities: Code(s): R29.898 - Other symptoms and signs involving the musculoskeletal system Plan Discussed the treatment option including Ingrezza, but patient had Afib and had ablation done recently, still having hard time to control her HR. Pt's daughter does not want to start Ingrezza, will keep monitor the tremor and movement. Advised patient to do home PT for lower extremities strength. Coding Level of Care Code Est Pt Level 3 (62018) Diagnoses Tardive dyskinesia G24.01 Weakness of both lower extremities R29.898
[2023-05-26 09:34] VITALS: BP 115/70; PULSE 55; O2SAT 95; BMI 34.9
== END 2023-05-26 10:02 | disposition home or self-care (01) ==
PROVIDERS: PCP Nurse Practitioner Family; Visit Provider Nurse Practitioner Family
DX: G24.01 Drug induced subacute dyskinesia (principal); R29.898 Other symptoms and signs involving the musculoskeletal system
CPT/HCPCS: 99213

== ENCOUNTER → 2023-05-26 09:19 | Outpatient (BNVA) | payer MEDICARE, MEDICAID, SELFPAY | PROVIDERS: PCP Nurse Practitioner Family; Visit Provider Nurse Practitioner Family | DX: G24.01 Drug induced subacute dyskinesia (principal); R29.898 Other symptoms and signs involving the musculoskeletal system | CPT/HCPCS: 99212 ==

== ENCOUNTER 2023-06-22 10:52 | Outpatient (AMB) | payer MEDICARE, MEDICAID, SELFPAY ==
--- NOTE | 2023-06-22 11:08 | MHC.PC.OV ---
Vital Signs 06/22/23 11:11 Height 5 ft 1 in Weight 186 lb BMI 35.1 BP 122/70 Blood Pressure Location Rt brachial Position Sitting Pulse 70 Pulse Source Pulse Oximeter Pulse Oximetry (%) 94 Oxygen Delivery Method Room Air Intake Visit Reasons: Annual PE/Secondary covers PE Intake Note: Patient here for physical exam. no new issues or concerns. Allergies Sulfa (Sulfonamide Antibiotics) [SULFA (SULFONAMIDE ANTIBIOTICS)] Allergy (Severe, Verified 06/22/23 11:34) RASH, Anaphylaxis Medication List - Last Reconciled 06/22/23 by TRINIDAD Guo acetaminophen 325 mg PO QID PRN 7 days albuterol sulfate 90 mcg/actuation (Ventolin HFA) 2 puffs inhalation Q6H PRN amiodarone 100 mg (1/2 x 200 mg) PO DAILY apixaban (Eliquis) 5 mg PO BID azithromycin mg PO cholecalciferol (vitamin D3) 50 mcg PO DAILY cranberry 1,000 mg PO DAILY hoiphmjzghq-vuhhynipb-ezhlcjer 100-62.5-25 mcg (Trelegy Ellipta) 1 inh inhalation DAILY furosemide 20 mg PO Q OTHER DAY hydroxyzine HCl 10 mg PO ONCE lamotrigine 50 mg PO BEDTIME melatonin 10 mg PO BEDTIME metoprolol succinate ER 50 mg (2 x 25 mg) PO DAILY olanzapine 1 tab PO BEDTIME simvastatin 20 mg PO BEDTIME Tobacco use date assessed: 06/22/23 Fall risk assessment: 1 Fall in past year Last assessed Fall Risk: 06/22/23 Dental Screening Dental Screen Date: 06/22/23 Did you have a dental visit in the last 12 months?: Yes Did you have a dental problem in the last 6 months where you did not have access to dental care?: No Was dental information given to patient?: Patient has dentist HPI Annual PE/Secondary covers PE HPI Details Pt is here for a PE. Will order labs. Due for cologuard in the near future, will order. Mammo is up to date. Bone density is up to date. Pt sees a therapist and a psychiatrist. Pt also sees cardiology, neurology, nephrology, and pulmonology. [facility] Medical History Emphysema of lung Tardive dyskinesia Coarse tremors Hypersomnia Snoring SHARON (acute kidney injury) Mediastinal lymphadenopathy Atrial fibrillation Dyslipidemia Kidney disease Leukocytosis Necrotizing granulomatous inflammation of lung Bipolar 1 disorder Vitamin D deficiency COPD (chronic obstructive pulmonary disease) Sarcoidosis HTN (hypertension) [place] nephropathy Surgical History History of cardioversion History of bronchoscopy Family History Child No Financial Resp No problems noted. 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 1. Little interest or pleasure in doing things: more than half the days 2. Feeling down, depressed, or hopeless: more than half the days 3. Trouble falling or staying asleep, or sleeping too much: nearly every day 4. Feeling tired or having little energy: nearly every day 5. Poor appetite or overeating: nearly every day 6. Feeling bad about yourself - or that you are a failure or have let yourself or your family down: not at all 7. Trouble concentrating on things, such as reading the newspaper or watching television: not at all 8. Moving or speaking so slowly that other people could have noticed. Or the opposite - being so fidgety or restless that you have been moving around a lot more than usual: not at all 9. Thoughts that you would be better off or of hurting yourself in some way: not at all Total score: 13 Depression Screening Interpretation: Positive (has a psychiatrist and therapist) Depression Screening Follow-up: Existing condition and In treatment Depression Screening Done: Yes 84595 - PHQ-9 Billing: Yes Source: Developed by Drs. Torrey Prater, Rylee De Leon, Winston Gutierrez and colleagues, with an educational eli from [employer] Thrive Questionnaire Date Thrive assessed: 06/22/23 I am a: Patient What is your living situation today?: I have a steady place to live Within the past 12 months, did the food you bought not last and you didn't have the money to get more?: Never true Within the past 12 months, did you worry whether your food would run out before you got money to buy more?: Never true Do you have trouble paying for medicines?: No Do you have trouble getting transportation to medical appointments?: No Do you have trouble paying your heating and electricity bill?: No Do you have trouble taking care of your child, family member or friend?: No Do you have trouble with day-to-day activities such as bathing, preparing meals, shopping, managing finances, etc.?: No Are you currently unemployed and looking for a job?: No Are you interested in more education?: No Currently or been in a relationship where the following occur: I choose not to answer this question THRIVE Score: 0 AUDIT C Alcohol Use Questionnaire (AUDIT-C) 1. How often do you have a drink containing alcohol?: Never 3. How often do you have six or more drinks on one occasion?: Never Total Score: 0 Score Reviewed/Action Taken: No CANDY-7 AMB Questionnaire CANDY-7 Date CANDY - 7 assessed: 06/22/23 Feeling nervous, anxious, or on edge: 1 = Several days Not being able to stop or control worryin = Not at all Worrying too much about different things: 0 = Not at all Trouble relaxin = Nearly every day Being so restless that it is hard to sit still: 0 = Not at all Becoming easily annoyed or irritable: 1 = Several days Feeling afraid as if something awful might happen: 0 = Not at all Total CANDY-7 score (0-4 normal; 5-9 mild; 10-14 moderate; 15-21 severe): 5 Source: Developed by Drs. Torrey Prater, Rylee De Leon, Winston Gutierrez and colleagues, with an educational eli from [employer] CANDY-7 Assessment Billing CANDY-7 Assessment Tool: CANDY-7 Assessment 30146 Review of Systems Const Denies chills and Denies fever(s) Eyes Denies blurry vision ENT Denies vertigo, Denies dizziness and Denies sore throat Card Denies chest pain at rest, Denies chest pain with activity, Denies diaphoresis, Denies dyspnea and Denies dyspnea on exertion Resp Denies cough, Denies dyspnea, Denies dyspnea on exertion and Denies wheezing GI Denies abdominal pain, Denies melena, Denies hematochezia, Denies constipation, Denies diarrhea and Denies loose stools Denies hematuria Musc Denies numbness and Denies tingling Skin/Breast Denies lesions Neuro Denies vertigo, Denies dizziness, Denies numbness and Denies tingling Psych Denies anxiety, Denies depression, Denies homicidal ideation, Denies suicidal ideation and Denies other (substance abuse) Aller/Immun Denies wheezing Physical exam (Primary Care) Vital Signs: Last Vital Signs Pulse 70 06/22/23 11:11 BP 122/70 06/22/23 11:11 Pulse Ox 94 06/22/23 11:11 Oxygen Delivery Method Room Air 06/22/23 11:11 BMI result Body Mass Index 35.1 Tobacco/Smoking Status: Tobacco use Status Tobacco use date assessed 06/22/23 06/22/23 11:18 Patient Tobacco Use Status Former Tobacco user 06/22/23 11:10 Tobacco use type Cigarette 06/22/23 11:10 e-Cigarette/Vaping Use Never Used 06/22/23 11:10 PHQ-9: PHQ-9 Score PHQ-9: Total score 13 06/22/23 11:18 Depression Screening Interpretation: Positive (has a psychiatrist and therapist) Depression Screening Follow-up: Existing condition and In treatment Thrive Assessment: Date of Thrive Assessment Date Thrive assessed 06/22/23 06/22/23 11:18 Currently or been in a relationship where the following occur: I choose not to answer this question Const General: cooperative Nutritional Appearance: well nourished Orientation/consciousness: patient oriented x3 HENMT Head: Yes normal to inspection, Yes normocephalic and Yes atraumatic Ears: TM's normal bilaterally Eyes General: appearance normal, both eyes and all related structures Alignment and Position: alignment normal and position normal Neck Neck: Yes normal visual inspection and Yes no lymphadenopathy Thyroid: Thyroid normal Resp Effort & Inspection: normal respiratory effort Auscultation: clear to auscultation bilaterally and diminished lung sounds Cardio Rate: regular rate Rhythm: regular rhythm Heart sounds: S1 normal heart sound present, S2 normal heart sound present and Murmur heart sound present systolic GI Palpation (GI): Soft to palpation and nontender Auscultation: normal bowel sounds Skin Rashes: no rashes Neuro Other: BUE tremors noted General: patient oriented x3, moves all extremities and deep tendon reflexes 2+ bilaterally Romberg Test: Negative Extrem Other: elongated toenails bilat Psych Appearance: grossly normal Mental Status: mental status grossly normal Speech and movement: Normal speech and movement present Affect: normal affect Attitude: cooperative Thought process: Normal thought process present Thought content: Normal thought content present Insight: Good insight present (Psych) Judgement: Good judgement present (Psych) Assessment and Plan Assessment & Plan (1) Physical exam: Code(s): Z00.00 - Encounter for general adult medical examination without abnormal findings Plan: Labs ordered Plan The patient agreed to the use of a emergency medical technician basic for this encounter. Scribed for TRINIDAD Marte by Maria Luisa Kenyon emergency medical technician basic, on 06/22/2023 at 11:20 EST. Orders: Orders Vitamin D 25-OH Total Today Z00.00 - Encounter for general adult medical examination without abnormal findings Complete Blood Count Auto Diff Today Z00.00 - Encounter for general adult medical examination without abnormal findings Comprehensive Tamiment. Panel Fast Today Z00.00 - Encounter for general adult medical examination without abnormal findings TSH reflex Free T4 Today Z00.00 - Encounter for general adult medical examination without abnormal findings UA CC w/rflx Micro + Cult Today Z00.00 - Encounter for general adult medical examination without abnormal findings Lipid Panel Today Z00.00 - Encounter for general adult medical examination without abnormal findings Referrals Cologuard Test Z12.11 - Encounter for screening for malignant neoplasm of colon, Z12.12 - Encounter for screening for malignant neoplasm of rectum Coding Level of Care Code Est Pt Prev Care >65y(75573) Diagnoses Physical exam Z00.00 Additional Codes CANDY-7 Assessment Billing - CANDY-7 Assessment Tool: CANDY-7 Assessment 91525 ([id number])
[2023-06-22 11:11] VITALS: BP 122/70; PULSE 70; O2SAT 94; BMI 35.1
== END 2023-06-22 11:41 | disposition home or self-care (01) ==
PROVIDERS: Visit Provider Nurse Practitioner Family
DX: Z00.00 Encounter for general adult medical examination without abnormal findings (principal)
CPT/HCPCS: 99397

== ENCOUNTER 2023-06-22 11:43 | Outpatient (REF) | payer MEDICARE, MEDICAID, SELFPAY ==
[2023-06-22 13:05] LABS: MANUAL DIFF FLAG NO
[2023-06-22 13:19] LABS: Basophils Absolute Auto 0.1 X10*3/uL (0.0-0.2); Basophils Percent Auto 0.7 % (0-2); Eosinophils Absolute Auto 0.2 X10*3/uL (0.0-0.4); Eosinophils Percent Auto 2.2 % (0-4); Hematocrit 37.8 % (37.0-47.0); Hemoglobin 11.9 g/dl (12.0-16.0); Imm Gran Abs Auto 0.03 X10*3/uL (0.00-0.03); Imm Gran Pct Auto 0.3 % (0.0-0.4); Lymphocytes Absolute Auto 0.7 X10*3/uL (1.2-4.9); Lymphocytes Percent Auto 7.1 % (20-40); Mean Corpuscular HGB Conc 31.5 g/dl (31.0-35.0); Mean Corpuscular Hemoglobin 30.4 pg (27.0-33.0); Mean Corpuscular Volume 96.7 fL (80.0-98.0); Mean Platelet Volume 10.8 fL (9.4-12.3); Monocytes Absolute Auto 0.5 X10*3/uL (0.1-1.2); Monocytes Percent Auto 5.8 % (2-11); Neutrophils Absolute Auto 7.8 x10*3/uL (2.0-8.3); Neutrophils Percent Auto 83.9 % (45-73); Platelet Count 235 X10*3/uL (160-400); Red Blood Count 3.91 X10*6/uL (4.20-5.50); Red Cell Distribution Width 14.1 % (11.0-16.0); White Blood Count 9.4 X10*3/uL (4.8-10.8)
[2023-06-22 13:54] LABS: Alanine Aminotransferase 19 U/L (0-31); Albumin Level 4.4 g/dL (3.5-5.0); Alkaline Phosphatase 57 U/L (39-117); Anion Gap 15 (12-20); Aspartate Amino Transferase 20 U/L (5-31); Bilirubin Total 0.8 mg/dL (0.0-1.0); Blood Urea Nitrogen 30 mg/dL (9-16); Carbon Dioxide 22 mmol/L (22-29); Chloride 107 mmol/L (96-108); Cholesterol 148 mg/dL (<200); Estimated Glomerular Filt Rate 25; Glucose Fasting 100 mg/dL (60-99); HDL Cholesterol 42 mg/dL (>40); LDL Cholesterol Calculated 87 mg/dL (<100); Potassium 4.4 mmol/L (3.3-5.1); Sodium 140 mmol/L (135-145); Total Protein 7.3 g/dL (6.5-8.0); Triglycerides 96 mg/dL (<150)
[2023-06-22 14:11] LABS: TSH reflex Free T4 0.54 uIU/mL (0.32-4.0); Vitamin D 25-OH Total 47.5 ng/mL (>30)
[2023-06-22 16:57] LABS: Appearance Urine Clear; Color Urine Yellow; Glucose Urine UA Negative (Negative); Leukocyte Esterase Urine Trace (Negative); Nitrite Urine Negative (Negative); UMIC TRIGGER UACC YES; Urine Blood Negative (Negative); Urine Ketones Negative (Negative); Urine Protein Negative (Neg-Trace)
[2023-06-22 17:04] LABS: Bacteria Urine None Seen (None Seen); Hyaline Casts Urine 0-2 /LPF (0-2); RBC Urine 0-2 /HPF (0-2); Squamous Epithelial Cell Urine 0-2 /HPF (0-2); WBC Urine 0-5 /HPF (0-5)
== END 2023-06-22 11:44 | disposition home or self-care (01) ==
LOC: HO.HMGCLDS 11:43
PROVIDERS: PCP Nurse Practitioner Family; Visit Provider Nurse Practitioner Family
DX: Z00.00 Encounter for general adult medical examination without abnormal findings (principal); Z13.6 Encounter for screening for cardiovascular disorders
CPT/HCPCS: 36415; 80053; 80061; 81001; 82306; 84443; 85025

== ENCOUNTER 2023-08-18 12:22 | Outpatient (REF) | payer MEDICARE, MEDICAID, SELFPAY | END 2023-08-18 12:23 | disposition home or self-care (01) | LOC: HO.SH 12:22 | PROVIDERS: Visit Provider Nurse Practitioner Family | DX: Z01.118 Encounter for examination of ears and hearing with other abnormal findings (principal); H90.3 Sensorineural hearing loss, bilateral | CPT/HCPCS: 92557 ==

== ENCOUNTER 2023-09-05 15:39 | Outpatient (REF) | payer MEDICARE, MEDICAID, SELFPAY ==
--- NOTE | 2023-09-05 16:15 | MHC.AU.HA1 ---
Hearing Aid Evaluation Date of Visit: 09/05/23 Historical Information: Description of Hearing: Mild to borderline normal through 2kHz sloping to moderately severe sensorineural hearing loss Au. Summary: Here with daughter. Recently seen for hearing evaluation on 08/18/23. Ready to proceed with amplification. Reviewed options. Selected rechargeable, silver. No smartphone. Encouraged them to bring granddaughter/ MAGNETIC RESONANCE IMAGING DIRECTOR to fitting so she can learn about insertion/ removal and maintenance. Hearing Aid Prescription: Based on the individual?s shared listening needs, communication environments, dexterity, desire for connectivity, and personal preferences, the following prescription for amplification has been made: Right ear: Make, Model, Color: Oticon Real 2 miniRITE R, silver Battery Size: Rechargeable Incident Commander/Slim Tube: 3/85 Type of Earmold/Dome/CShell/SlimTip: 8mm dbl fuentes Left ear: Make, Model, Color: Oticon Real 2 miniRITE R, silver Battery Size: Rechargeable Incident Commander/Slim Tube: 3/85 Type of Earmold/Dome/CShell/SlimTip: 8mm dbl alfredo Plan of Care: Patient wishes to purchase hearing aids as prescribed Action Taken/Action Needed: Medical Clearance to be requested from PCP/ENT Hearing Instrument Fitting to be scheduled when materials arrive Primary Diagnosis: H90.3 Bilateral Sensorineural Hearing Loss Signature: Provider: Rodo Nina, [facility]
== END 2023-09-05 15:40 | disposition home or self-care (01) ==
LOC: HO.SH 15:39
PROVIDERS: Visit Provider Nurse Practitioner Family
DX: Z01.118 Encounter for examination of ears and hearing with other abnormal findings (principal); H90.3 Sensorineural hearing loss, bilateral
CPT/HCPCS: 92591

== ENCOUNTER → 2023-10-05 09:58 | Outpatient (REF) | payer MEDICARE, MEDICAID, SELFPAY ==
--- NOTE | 2023-10-05 10:01 | CA_ITS ---
Transthoracic Echocardiogram Patient (Last, First, Middle): Nikik Borjas J Gender: Female Date of : 1945 Age: 77 Procedure Date: 10/05/2023 Procedure Type: Transthoracic Echocardiogram Location: OP Height: 154.94 cm Weight: 81.65 kg BSA: 1.81 m2 Heart Rate: bpm BP: 106 / 56 mmHg Oil Exploration Engineer: CATRINA Referring MD: Steven Castañeda MD Symptoms: I50.9 - Heart failure, unspecified Study Quality: Adequate Conclusions: - The left ventricular systolic function is normal. The calculated ejection fraction is 67% by biplane method. - Evidence suggests grade II (moderate) diastolic dysfunction. - The left atrium is severely dilated. - There is severe mitral annular calcification. There is moderate mitral valve regurgitation. At least moderate mitral stenosis. - Moderate to severe pulmonary hypertension is present. Findings Left Ventricle Normal left ventricular cavity size. There is normal left ventricular wall thickness. The left ventricular systolic function is normal. The calculated ejection fraction is 67% by biplane method. There is no evidence of regional wall motion abnormalities. Evidence suggests grade II (moderate) diastolic dysfunction. Right Ventricle Normal right ventricular cavity size and systolic function. Atria The left atrium is severely dilated. The right atrium is normal in size. Aortic Valve There is a normal trileaflet aortic valve. There is mild calcification of the aortic valve. There is no aortic valve stenosis. There is no aortic valve regurgitation. Mitral Valve There is severe mitral annular calcification. There is moderate mitral valve regurgitation. At least moderate mitral stenosis. Pulmonic Valve There is trace pulmonic valve regurgitation. Tricuspid Valve There is mild to moderate tricuspid valve regurgitation. The right ventricular systolic pressure is 68 mmHg. Moderate to severe pulmonary hypertension is present. Great Vessels The asc aorta is normal in size. Venous The inferior vena cava is normal in size and collapses greater than 50% with inspiration. Pericardium/Pleural There is no evidence of pericardial effusion. Prior Study Comparison No significant change compared to prior study dated: 10/06/2022. Measurements 2D Linear Measurements IVSd: 1.00 0.6-0.9/0.6-1.0 cm LVIDd: 3.94 3.9-5.3/4.2-5.9 cm LVIDd Index: 2.18 2.4-3.2/2.2-3.1 cm/m2 LVIDs: 2.50 2.0-3.6 cm LVPWd: 1.02 0.7-1.1 cm LA Diam: 3.40 2.7-3.8/3.0-4.0 cm LAIDs Index: 1.88 1.5-2.3 cm/m2 LV Mass: 156.57 67-162/88-224 g LV Mass Index: 86.50 43-95/49-115 g/m2 LVOT Diam: 1.90 3.0+(-)1.3 cm 2D Systolic Function EF 4C: 66.90 >55% EF 2C: 67.90 >55% EF BiP: 67.40 >55% Mitral Valve MV VTI: 1.14 MV Pk Abel: 2.60 MV Mn Abel: 1.40 MV Pk Grad: 27.00 MV Mn Grad: 9.00 MV Pk E: 2.22 MV PK A: 1.47 MV Decel Time: 534.00 E/A: 1.50 E'Lateral: 6.09 E'Medial: 5.55 E/E' Med: 40.00 E/E' Lat: 36.50 PHT: 156.00 MVA PHT: 1.41 MVA Continuity: 0.77 Decel [place]: 4.17 Aortic Valve AoV Pk Abel: 1.39 AoV Mn Abel: 0.95 AoV VTI: 0.38 AoV Pk Grad: 8.00 Aov Mn Grad: 4.00 KRISTOFER Cont.VTI: 2.29 LVOT LVOT Pk Abel: 1.07 LVOT Mn Abel: 0.75 LVOT VTI: 0.31 LVOT Pk Grad: 5.00 LVOT Mn Grad: 2.00 LVOT Diam: 1.90 LVOT Area: 2.84 Diastolic Function MV Pk E: 2.22 MV Pk A: 1.47 E/A: 1.50 E'Medial: 5.55 E/E' Med: 40.00 E' Laterial: 6.09 E/E' Lat: 36.50 Right Ventricle TAPSE (mm): 26.70 TVS' Abel: 10.80 Tricuspid Valve TR Pk Abel: 4.03 TR Pk Grad: 65.00 RA Press: 3.00 RVSP: 68.00 Great Vessels Aorta Sinus of Valsalva: 2.73 2.0-3.[address] [place]: 1.90 1.7-3.4 cm Ao Asc: 3.00 2.1-3.4 cm Updated in Other Vendor System with Status of Final Darci Mckinney MD electronically signed on 10/07/2023 2:59:51 PM with status of Final
== END ==
LOC: HO.CARD 09:58
PROVIDERS: PCP Nurse Practitioner Family; Visit Provider Internal Medicine Cardiovascular Disease
DX: I50.9 Heart failure, unspecified (principal); I34.0 Nonrheumatic mitral (valve) insufficiency
CPT/HCPCS: 93306

== ENCOUNTER → 2023-10-05 10:01 | Outpatient (BNV) | payer MEDICARE, MEDICAID, SELFPAY | PROVIDERS: PCP Nurse Practitioner Family; Visit Provider Internal Medicine | DX: I34.2 Nonrheumatic mitral (valve) stenosis (principal); I34.0 Nonrheumatic mitral (valve) insufficiency; I34.81 Nonrheumatic mitral (valve) annulus calcification | CPT/HCPCS: 93306 ==

== ENCOUNTER 2023-10-12 07:47 | Outpatient (REF) | payer MEDICARE, MEDICAID, SELFPAY ==
[2023-10-12 10:06] LABS: MANUAL DIFF FLAG NO
[2023-10-12 10:12] LABS: Baso%MD 0.9 %; Eos%MD 7.5 %; Hematocrit 40.2 % (37.0-47.0); IG%MD 0.7 %; Lymph%MD 17.5 %; Mean Corpuscular HGB Conc 32.3 g/dl (31.0-35.0); Mean Corpuscular Hemoglobin 30.1 pg (27.0-33.0); Mean Corpuscular Volume 93.1 fL (80.0-98.0); Mean Platelet Volume 10.8 fL (9.4-12.3); Mono%MD 6.3 %; Neut%MD 67.1 %; Platelet Count 208 X10*3/uL (160-400); Red Blood Count 4.32 X10*6/uL (4.20-5.50); Red Cell Distribution Width 13.3 % (11.0-16.0); White Blood Count 5.9 X10*3/uL (4.8-10.8)
[2023-10-12 10:14] LABS: Basophils Absolute Auto 0.1 X10*3/uL (0.0-0.2); Eosinophils Absolute Auto 0.4 X10*3/uL (0.0-0.4); Eosinophils Percent Auto 7.3 % (0-4); Hematocrit 42.1 % (37.0-47.0); Hemoglobin 13.5 g/dl (12.0-16.0); Imm Gran Abs Auto 0.04 X10*3/uL (0.00-0.03); Imm Gran Pct Auto 0.7 % (0.0-0.4); Lymphocytes Absolute Auto 0.9 X10*3/uL (1.2-4.9); Lymphocytes Percent Auto 15.7 % (20-40); Mean Corpuscular HGB Conc 32.1 g/dl (31.0-35.0); Mean Corpuscular Hemoglobin 30.4 pg (27.0-33.0); Mean Corpuscular Volume 94.8 fL (80.0-98.0); Mean Platelet Volume 10.9 fL (9.4-12.3); Monocytes Absolute Auto 0.4 X10*3/uL (0.1-1.2); Monocytes Percent Auto 6.3 % (2-11); Neutrophils Absolute Auto 4.1 x10*3/uL (2.0-8.3); Platelet Count 206 X10*3/uL (160-400); Red Blood Count 4.44 X10*6/uL (4.20-5.50); Red Cell Distribution Width 13.4 % (11.0-16.0); White Blood Count 5.9 X10*3/uL (4.8-10.8)
[2023-10-12 10:35] LABS: Anion Gap 13 (12-20); Blood Urea Nitrogen 43 mg/dL (9-16); Calcium 9.6 mg/dL (8.4-10.2); Carbon Dioxide 25 mmol/L (22-29); Chloride 107 mmol/L (96-108); Estimated Glomerular Filt Rate 20; Iron 84 mcg/dL (30-160); Percent Iron Saturation 28 % (15-50); Phosphorus 4.2 mg/dL (2.7-4.5); Potassium 3.7 mmol/L (3.3-5.1); Sodium 141 mmol/L (135-145); Total Iron Binding Capacity 304 mcg/dL (228-428); Unsaturated Iron Binding 220 ug/dL
[2023-10-12 10:42] LABS: Ferritin 174 ng/mL (10-250); Vitamin D 25-OH Total 46.3 ng/mL (>30)
[2023-10-12 11:05] LABS: Parathyroid Hormone Intact 124.5 pg/mL (8.7-77.1)
[2023-10-12 11:08] LABS: Band Neutrophils Percent 0 % (3-5); Eosinophils Absolute Manual 0.4 X10*3/uL (0.0-0.4); Eosinophils Percent Manual 6 % (0-4); Lymphocytes Absolute Manual 0.9 X10*3/uL (1.2-4.9); Lymphocytes Percent Manual 16 % (20-40); Monocytes Absolute Manual 0.6 X10*3/uL (0.1-1.2); Monocytes Percent Manual 10 % (2-11); Neutrophils Percent Manual 68 % (45-73)
[2023-10-12 11:09] LABS: Platelet Estimate NORMAL (NORMAL); Platelet Morphology Comment NORMAL; RBC Morphology NORMAL
[2023-10-16 11:10] LABS: Cystatin C 2.71 (H)
== END 2023-10-12 07:48 | disposition home or self-care (01) ==
LOC: HO.HMGCLDS 07:47
PROVIDERS: PCP Nurse Practitioner Family; Visit Provider Internal Medicine Nephrology
DX: I10 Essential (primary) hypertension (principal)
CPT/HCPCS: 36415; 80051; 82306; 82310; 82565; 82610; 82728; 83540; 83970; 84100; 84520; 85007; 85025; 85027; 93005; 99212

== ENCOUNTER 2023-10-12 08:35 | Outpatient (AMB) | payer MEDICARE, MEDICAID, SELFPAY ==
--- NOTE | 2023-10-12 08:38 | MHC.OFFVIS ---
Vital Signs 10/12/23 08:39 Height 5 ft 1 in Weight 182 lb 15.739 oz BMI 34.6 BP 118/60 Blood Pressure Location Lt brachial Position Sitting Pulse 55 Pulse Source Monitor Intake Visit Reasons: 6 mth f/up Allergies Sulfa (Sulfonamide Antibiotics) [SULFA (SULFONAMIDE ANTIBIOTICS)] Allergy (Severe, Verified 06/22/23 11:34) RASH, Anaphylaxis Medication List - Last Reconciled 10/12/23 by Steven Castañeda MD acetaminophen 325 mg PO QID PRN 7 days albuterol sulfate 90 mcg/actuation (Ventolin HFA) 2 puffs inhalation Q6H PRN amiodarone 100 mg (1/2 x 200 mg) PO DAILY apixaban (Eliquis) 5 mg PO BID cholecalciferol (vitamin D3) 50 mcg PO DAILY cranberry 1,000 mg PO DAILY gvwnqpdxjba-sbgkqtcgz-dfasmgqv 100-62.5-25 mcg (Trelegy Ellipta) 1 inh inhalation DAILY furosemide 20 mg PO Q OTHER DAY hydroxyzine HCl 10 mg PO ONCE lamotrigine 50 mg PO BEDTIME melatonin 10 mg PO BEDTIME metoprolol succinate ER 50 mg (2 x 25 mg) PO DAILY olanzapine 7.5 mg PO BEDTIME simvastatin 20 mg PO BEDTIME HPI Comments Details: Nikki comes for follow-up. She has been doing well in the last 6 months. No hospitalization. As per the daughter last week she had some fluid gain and took Lasix for a week straight and did well. No orthopnea, PND or worsening shortness of breath. As per the daughter she has been slightly congested recently. She has been using her inhalers regularly. No prolonged palpitation irregular heartbeat. No lightheadedness, syncope. No bleeding issues. Renal functions have remained stable. Recent echocardiogram shows normal LV ejection fraction with at least grade 2 diastolic dysfunction with severe left atrial enlargement with calcific mitral valve disease with moderate mitral regurgitation and moderate mitral stenosis. She also has moderate to severe pulmonary hypertension. Has frequent falls but does not like to use support devices. She as a result does not exercise much. [facility] Medical History Emphysema of lung Tardive dyskinesia Coarse tremors Hypersomnia Snoring SHARON (acute kidney injury) Mediastinal lymphadenopathy Atrial fibrillation Dyslipidemia Kidney disease Leukocytosis Necrotizing granulomatous inflammation of lung Bipolar 1 disorder Vitamin D deficiency COPD (chronic obstructive pulmonary disease) Sarcoidosis HTN (hypertension) [place] nephropathy Surgical History History of cardioversion History of bronchoscopy Family History Child No Financial Resp No problems noted. 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 Current occupational exposures/hazards: No Cognitive needs: No Hearing needs: No Vision needs: Yes Review of Systems Const Denies weakness ENT Denies dizziness Card Denies chest pain, Denies chest pain with activity, Denies syncope, Denies rapid heart rate, Denies pedal edema, Denies edema, Denies leg edema, Denies lightheadedness, Denies palpitations, Denies dyspnea, Denies dyspnea on exertion and Denies orthopnea Resp Denies cough, Denies dyspnea and Denies dyspnea on exertion GI Denies hematochezia and Denies change in stool character Musc Denies abnormal gait, Denies muscle cramps, Denies muscle weakness, Denies numbness, Denies radiating pain into limb and Denies tingling Neuro Denies abnormal gait, Denies dizziness, Denies syncope, Denies numbness, Denies tingling and Denies weakness Endo Denies palpitations Physical Exam Vital Signs: Last Vital Signs Pulse 55 10/12/23 08:39 BP 118/60 10/12/23 08:39 BMI result Body Mass Index 34.6 Const General: cooperative, comfortable and no acute distress Neck Neck: Yes normal visual inspection and Yes no JVD Resp Effort & Inspection: normal respiratory effort Auscultation: clear to auscultation bilaterally, no crackles, no rales, no rhonchi and no wheezes Cardio Jugular venous distension: no JVD Rate: regular rate Rhythm: regular rhythm Heart sounds: S1 normal heart sound present, S2 normal heart sound present, no gallops, no murmurs and no rubs GI Inspection: Yes normal to inspection Extrem General: Yes normal to inspection and No no pedal edema Psych Appearance: grossly normal Mental Status: mental status grossly normal Office Procedures EKG Details: EKG shows sinus bradycardia 55 beats per minute with normal axis had mild QT prolongation at 476 milliseconds [id number], Complete Assessment & Plan Assessment & Plan (1) Paroxysmal atrial fibrillation: Code(s): I48.0 - Paroxysmal atrial fibrillation Category: Medical Plan: Paroxysmal atrial fibrillation has done very well with rhythm control approach with no recurrent or controlled heart failure syndrome and no recurrent hospitalization. Continue rhythm control approach. 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 Check annually for amiodarone toxicity. She had recent liver and thyroid profile which were within normal limits. Continue full oral anticoagulation, currently on Eliquis 5 mg b.i.d.. Continue monitor renal function closely, being closely followed by Nephrology as well. (2) Congestive heart failure: Code(s): I50.9 - Heart failure, unspecified Category: Medical Plan: Congestive heart failure with diastolic dysfunction as well as calcific mitral valve disease in the setting of atrial fibrillation. Has done well with rhythm control approach will continue pursue the same. Continue current diuretic dose. Additional diuretics as need be. Daily weight monitoring avoidance of salt loading was discussed advised to call me with worsening symptoms. Continue to optimize pulmonary function. Encouraged to increase activity level and use assist device to pursue more walking. (3) Calcification of mitral valve: Code(s): I34.81 - Nonrheumatic mitral (valve) annulus calcification Category: Medical Plan: Calcific mitral valve disease with moderate mitral regurgitation moderate mitral stenosis. Does not require any surgical intervention at this point time. Will continue monitor by echocardiogram on annual basis. Continue oral anticoagulation above. Continue aggressive blood pressure control which is well optimized. Continue statin therapy. Will follow up in the clinic in 6 months time, sooner p.r.n.. Thank you for allowing me to partake in her care Orders: Orders XR chest 2V Today I48.0 - Paroxysmal atrial fibrillation Coding Level of Care Code Est Pt Level 4 (79739) Diagnoses Paroxysmal atrial fibrillation I48.0 Congestive heart failure I50.9 Calcification of mitral valve I34.81 CPT Codes EKG - CPT: 65856-[id number], Complete ([id number])
[2023-10-12 08:39] VITALS: BP 118/60; PULSE 55; BMI 34.6
== END 2023-10-12 08:59 | disposition home or self-care (01) ==
PROVIDERS: PCP Nurse Practitioner Family; Visit Provider Internal Medicine Cardiovascular Disease
DX: I48.0 Paroxysmal atrial fibrillation (principal); I50.9 Heart failure, unspecified; I34.81 Nonrheumatic mitral (valve) annulus calcification
CPT/HCPCS: 93010; 99214

== ENCOUNTER 2023-10-12 09:01 | Outpatient (REF) | payer MEDICARE, MEDICAID, SELFPAY ==
--- NOTE | ~2023-10-12 | XR_ITS ---
EXAMINATION: XR CHEST, 2 VIEWS CLINICAL INFORMATION: Paroxysmal atrial fibrillation. COMPARISON: 06/04/2021 TECHNIQUE: PA and lateral views of the chest were obtained. FINDINGS: Cardiac silhouette is enlarged. Mild pulmonary venous congestion. No focal airspace consolidation. Linear pleural parenchymal scarring in the right midlung. Lungs are hyperexpanded. No pneumothorax or pleural effusion. Mild pleural parenchymal scarring at the right lung apex. No acute osseous findings. XR/XR chest 2V IMPRESSION: 1. Cardiomegaly with mild pulmonary venous congestion. No overt edema. 2. Hyperexpanded lungs. Electronically signed by: Jesse Hamilton MD 11/05/2023 10:38 AM EDT
== END 2023-10-12 09:02 | disposition home or self-care (01) ==
LOC: HO.XRAY 09:01
PROVIDERS: PCP Nurse Practitioner Family; Visit Provider Internal Medicine Cardiovascular Disease
DX: I48.0 Paroxysmal atrial fibrillation (principal)
CPT/HCPCS: 36415; 71046; 80051; 82306; 82310; 82565; 82610; 82728; 83540; 83970; 84100; 84520; 85007; 85025; 85027; 93005; 99212

== ENCOUNTER 2023-10-12 09:51 | Outpatient (REF) | payer MEDICARE, MEDICAID, SELFPAY ==
--- NOTE | 2023-10-12 10:48 | MHC.AU.HA2 ---
Hearing Instrument Fitting- Adult- Binaural Date of Visit: 10/12/23 Hearing Instruments Dispensed: Right Ear: Spike, Model, Color, Serial Number: Oticon Real 2 miniRITE dedra Ayers [id number] Ambulance Officer Repair Warranty: 10/24/2026 Ambulance Officer Loss and Damage Warranty: 10/24/2026 [facility] Service Plan: 10/11/2024 Battery Size: Rechargeable Automotive Hardware Engineer/Slim Tube: 3/85 Earmold/Dome/CShell/SlimTip: 8mm dbl fuentes Type of Wax Guard: Minifit pro wax Left Ear: Make, Model, Color, Serial Number: Oticon Real 2 miniRITE Rdedra [id number] Ambulance Officer Repair Warranty: 10/24/2026 Ambulance Officer Loss and Damage Warranty: 10/24/2026 [facility] Service Plan: 10/11/2024 Battery Size: Rechargeable Automotive Hardware Engineer/Slim Tube: 3/85 Earmold/Dome/CShell/SlimTip: 8mm dbl alfredo Type of Wax Guard: Minifit Pro Wax Accessories/Assistive Technology: Oticon tailoring teacher minirite S#[id number] Warranty 10/24/2026 Summary of Fitting: Here with daughter. Fit with and oriented to binaural Oticon Intent 2 R HAs. Verified to DSL 5 Adult targets. Ran feedback management. VC disabled. Demonstrated charging. Reviewed maintenance procedures and precautions. Practiced insertion and removal. Good subjective comfort and benefit reported. Counseled on adjustment to amplification. Recommendations: Recommendations: Hearing instrument care and maintenance were discussed and practiced. A hearing instrument follow-up was scheduled. Diagnosis Code(s): Primary Diagnosis: H90.3 Bilateral Sensorineural Hearing Loss Signature: Provider: Rodo Nina, CCC-A
== END 2023-10-12 09:52 | disposition home or self-care (01) ==
LOC: HO.HAP 09:51
PROVIDERS: Visit Provider Nurse Practitioner Family
DX: Z46.1 Encounter for fitting and adjustment of hearing aid (principal); H90.3 Sensorineural hearing loss, bilateral
CPT/HCPCS: V5011; V5020; V5160; V5261

== ENCOUNTER 2023-10-16 06:00 | Outpatient (REF) | payer MEDICARE, MEDICAID, SELFPAY ==
[2023-10-16 13:32] LABS: Appearance Urine Clear; Color Urine Yellow; Glucose Urine UA Negative (Negative); Leukocyte Esterase Urine Negative (Negative); Nitrite Urine Negative (Negative); Urine Blood Negative (Negative); Urine Ketones Negative (Negative); Urine Protein Trace mg/dL (Neg-Trace)
[2023-10-16 13:42] LABS: Bacteria Urine None Seen (None Seen); Hyaline Casts Urine 0-2 /LPF (0-2); RBC Urine 0-2 /HPF (0-2); Squamous Epithelial Cell Urine 0-2 /HPF (0-2); WBC Urine 0-5 /HPF (0-5)
[2023-10-16 14:12] LABS: Creatinine Urine 47.22 mg/dL; Microalbumin Urine < 5.0 mg/L
== END 2023-10-16 06:01 | disposition home or self-care (01) ==
LOC: HO.HMGCLNP 06:00
PROVIDERS: Visit Provider Internal Medicine Nephrology
DX: N18.32 Chronic kidney disease, stage 3b (principal)
CPT/HCPCS: 81001; 82043; 82570

== ENCOUNTER 2023-11-06 14:28 | Outpatient (REF) | payer MEDICARE, OTHER, SELFPAY ==
--- NOTE | 2023-11-06 15:57 | MHC.AU.HA3 ---
Hearing Instrument Follow-Up- Binaural Date of Visit: 11/06/23 Right Ear: Spike, Model, Color, Serial Number: Oticon Real 2 miniRITE Rdedra [id number] Porcelain Enameler Repair Warranty: 10/24/2026 Porcelain Enameler Loss and Damage Warranty: 10/24/2026 [facility] Service Plan: 10/11/2024 Battery Size: Rechargeable Freight Team Associate/Slim Tube: 3/85 Earmold/Dome/CShell/SlimTip:8mm dbl fuentes Type of Wax Guard: Minifit pro wax Dispensed By: [facility] Date of Fittin10/12/23 Left Ear: Spike, Model, Color, Serial Number: Oticon Real 2 miniRITE Rdedra [id number] Porcelain Enameler Repair Warranty: 10/24/2026 Porcelain Enameler Loss and Damage Warranty: 10/24/2026 [facility] Service Plan: 10/11/2024 Battery Size: Rechargeable Freight Team Associate/Slim Tube: 3/85 Earmold/Dome/CShell/SlimTip: 8mm dbl fuentes Type of Wax Guard: Minifit Pro Wax Dispensed By: [facility] Date of Fittin10/12/23 Follow-Up Summary: Here for follow up. Accompanied by daughter. Reports good satisfaction with hearing aids. Notes they are really making a difference. Cleaned and checked aids, listening check positive. Firmware updated done. Recommendations: Recommendations: Hearing instrument maintenance in 6 months, or sooner if needed. Diagnosis Code(s): Primary Diagnosis: H90.3 Bilateral Sensorineural Hearing Loss Signature: Provider: Rodo Nina, [facility]
== END 2023-11-06 14:29 | disposition home or self-care (01) ==
LOC: HO.HAP 14:28
PROVIDERS: Visit Provider Nurse Practitioner Family
DX: Z13.89 Encounter for screening for other disorder (principal)

== ENCOUNTER 2023-11-13 08:00 | Outpatient (AMB) | payer OTHER, MEDICAID, SELFPAY ==
[2023-11-13 08:10] VITALS: BP 118/64; BMI 35.1
--- NOTE | 2023-11-13 08:10 | A.OFFVIS_ITS ---
Vital Signs 11/13/23 08:10 Height 5 ft 1 in Weight 186 lb BMI 35.1 BP 118/64 Blood Pressure Location Rt brachial Position Sitting Intake Visit Reasons: Follow up Intake Note: Patient presents for follow up. Allergies Sulfa (Sulfonamide Antibiotics) [SULFA (SULFONAMIDE ANTIBIOTICS)] Allergy (Severe, Verified 11/13/23 08:15) RASH, Anaphylaxis HPI Comments Details: 78-yr-old female presents for f/u visit. Pt is accompanied by her dtr. Pt denies any significant interval medical history changes. Pt now has hearing aides. She continues to have BUE symmetric tremor.- somedays worse than others. Some days her voice is worse- not a/w tremor- states is d/t increased phlegm r/t her COPD. Has oral movements- pt may not notice this. She still may make a vocal noise- pt is unaware of this. Sometimes dtr notice right eye closing. She has frequent falls- her last fall was a few weeks ago. Dtr thinks she may be trying to go faster than her legs can go. Dtr feels her feet are shuffling more. She does not use her lifeline or walker. Pt is not sure why she does not use her walker. She denies hyposmia. Dtr endorses sleep talking. Previously tried CD-LD 25-100mg- 1/2 tab caused dyskinesias. [facility] Medical History Emphysema of lung Tardive dyskinesia Coarse tremors Hypersomnia Snoring SHARON (acute kidney injury) Mediastinal lymphadenopathy Atrial fibrillation Dyslipidemia Kidney disease Leukocytosis Necrotizing granulomatous inflammation of lung Bipolar 1 disorder Vitamin D deficiency COPD (chronic obstructive pulmonary disease) Sarcoidosis HTN (hypertension) [place] nephropathy Surgical History History of cardioversion History of bronchoscopy Family History Child No Financial Resp No problems noted. 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 Current occupational exposures/hazards: No Cognitive needs: No Hearing needs: No Vision needs: Yes Review of Systems Const All systems reviewed & are unremarkable except as noted in HPI and below Physical Exam Vital Signs: Last Vital Signs BP 118/64 11/13/23 08:10 BMI result Body Mass Index 35.1 Const General: cooperative and no acute distress Resp Effort & Inspection: normal respiratory effort and able to speak in complete sentences Neuro Other: General: A&O x's 3 Expression: Decreased expression and blink Voice: Soft/hoarse Tremor: No visible tremor Tone: Mild BUE tone in elbows Dyskinesia: Mild lingual-buccal movements. FFM: Mildly decreased Foot taps: Mildly decreased Gait: Able to stand easily w/ using arms to support, no arm swing, knees bent, short shuffled steps. Psych: Pleasant affect Assessment & Plan Assessment & Plan (1) Tardive dyskinesia: Comment: Mild Code(s): G24.01 - Drug induced subacute dyskinesia Category: Medical (2) Coarse tremors: Comment: tremors are likely related to exposure to lithium, amiodarone and olanzapine? tardive tremors, tardive parkinsonism. she does have some extrapyramidal features. But unlikely to be idiopathic Parkinsons disease. Code(s): G25.2 - Other specified forms of tremor Category: Medical (3) Gait disorder: Comment: ? neuroleptic PDism Code(s): R26.9 - Unspecified abnormalities of gait and mobility Category: Medical Plan Pt is not interested in trying new medications at this point. Monitor TD and PDism s/s. Advsied pt to use walker. Reviewed simple strategies to improve gait. Offered PT- pt will consider. Metoprolol may be helping tremor- continue per cardiology. Previous trials- CD-LD 25-100mg 1/2 tab bid- caused dyskinesias. Contrandications- would avoid Ingreza/Austedo d/t a-fib dx. f/u in 6 months or sooner prn. Coding Level of Care Code Est Pt Level 4 (46935) Diagnoses Tardive dyskinesia G24.01 Coarse tremors G25.2 Gait disorder R26.9
== END 2023-11-13 09:43 | disposition home or self-care (01) ==
PROVIDERS: PCP Nurse Practitioner Family; Visit Provider Nurse Practitioner Family
DX: G24.01 Drug induced subacute dyskinesia (principal); G25.2 Other specified forms of tremor; R26.9 Unspecified abnormalities of gait and mobility
CPT/HCPCS: 99214

== ENCOUNTER → 2023-11-13 08:00 | Outpatient (BNVA) | payer MEDICARE, SELFPAY | PROVIDERS: PCP Nurse Practitioner Family; Visit Provider Nurse Practitioner Family | DX: G24.01 Drug induced subacute dyskinesia (principal); G25.2 Other specified forms of tremor; R26.9 Unspecified abnormalities of gait and mobility; Z79.899 Other long term (current) drug therapy | CPT/HCPCS: 99212 ==

== ENCOUNTER 2024-03-25 14:11 | Outpatient (REF) | payer MEDICARE, MEDICAID, SELFPAY ==
--- OUTSIDE RECORDS SUMMARY | 2024-03-25 15:50 | XMS_ITS ---
Author Organization [facility] Address Unknown Allergies, Adverse Reactions, Alerts Substance Reaction Status Noted Date Resolved Date Sulfa Antibiotics active 04/05/2021 Problems Problem Status Start Date End Date MUSCLE WASTING AND ATROPHY, NOT ELSEWHERE CLASSIFIED, RIGHT SHOULDER (Primary) (M62.511 - ICD-10-CM) ACTIVE 04/23/2021 MUSCLE WASTING AND ATROPHY, NOT ELSEWHERE CLASSIFIED, RIGHT SHOULDER (Primary) (M62.511 - ICD-10-CM) RESOLVED 04/05/2021 04/23/2021 CHRONIC OBSTRUCTIVE PULMONAR Y DISEASE WITH (ACUTE) EXACERBATION (J44.1 - ICD-10-CM) ACTIVE 04/23/2021 PULMONARY FIBROSIS, UNSPECIFIED (J84.10 - ICD-10-CM) A CTIVE 04/06/2021 SEPSIS DUE TO ESCHERICHIA CO LI [E. COLI] (A41.51 - ICD-10-CM) ACTIVE 04/05/2021 URINARY TRACT INFECTION, SIT E NOT SPECIFIED (N39.0 - ICD-10-CM) ACTIVE 04/05/2021 ACUTE ON CHRONIC SYSTOLIC (C ONGESTIVE) HEART FAILURE (I50.23 - ICD-10-CM) ACTIVE 04/23/2021 CHRONIC OBSTRUCTIVE PULMONAR Y DISEASE, UNSPECIFIED (J44.9 - ICD-10-CM) RESOLVED 04/06/2021 04/23/2021 ENCOUNTER FOR OBSERVATION FO R SUSPECTED EXPOSURE TO OTHER BIOLOGICAL AGENTS RULED OUT (Z03.818 - ICD-10-CM) ACTIVE 04/05/2021 SCHIZOAFFECTIVE DISORDER, BI POLAR TYPE (F25.0 - ICD-10-CM) ACTIVE 04/08/2021 MORBID (SEVERE) OBESITY DUE TO EXCESS CALORIES (E66.01 - ICD-10-CM) ACTIVE 04/23/2021 BIPOLAR DISORDER, CURRENT EP ISODE MANIC SEVERE WITH PSYCHOTIC FEATURES (F31.2 - ICD-10-CM) ACTIVE 04/05/2021 ACUTE KIDNEY FAILURE, UNSPECIFIED (N17.9 - ICD-10-CM) RESOLVED 04/05/2021 04/23/2021 VITAMIN D DEFICIENCY, UNSPECIFIED (E55.9 - ICD-10-CM) ACTIVE 04/05/2021 PAROXYSMAL ATRIAL FIBRILLATION (I48.0 - ICD-10-CM) ACT CESAR 04/05/2021 NEPHROPATHY INDUCED BY UNSPE CIFIED DRUG, MEDICAMENT OR BIOLOGICAL SUBSTANCE (N14.2 - ICD-10-CM) ACTIVE 04/05/2021 HYPERLIPIDEMIA, UNSPECIFIED (E78.5 - ICD-10-CM) ACTIVE 04/05/2021 CHRONIC KIDNEY DISEASE, STAG E 3 UNSPECIFIED (N18.30 - ICD-10-CM) ACTIVE 04/05/2021 ESSENTIAL (PRIMARY) HYPERTENSION (I10 - ICD-10-CM) ACT CESAR 04/05/2021 Results * XRAY CHEST 2 VIEW Performed by: [employer] [facility] [place] Component Value Range Date XRAY CHEST 2 VIEW XRAY CHEST 2 VIEW Co mparison: Comparison to the prior study 04/06/2021ee NoteFINDINGS: AP and lateral examination compared to prior study now demonstrates a 9 cm ovoid density laterally in the right upper lobe and the diffuse infiltrate in the right lower lobe. Left lung is clear. Increased pulmonary vascularity. Mild cardiomegaly.See NoteCONCLUSION: Mild cardiomegaly with mild pulmonary venous congestion. A right upper lobe density is suspicious for loculated pleural effusion. The right lower lobe density can also be pleural fluid and possibly infiltrate. Clinical correlation and follow-up examination is recommended.ELECTRONICALLY SIGNED BY GLORIA BUSTAMANTE M.D. 04/19/2021 5:24:26 PM EST.Reason for Study: R06.02 SHORTNESS OF BREATHPrincipal Result Web Assistant: GLORIA BUSTAMANTE ([phone])Chartered Accountant: PABLITO CHAVIRA (BBIRKS)Recreation Establishment Manager Chartered Accountant: FLACA 04/19/2021 05:24 pm EST * XRAY CHEST 2 VIEW Performed by: [employer] Component Value Range Date XRAY CHEST 2 VIEW XRAY CHEST 2 VIEWFIN DINGS: The heart and mediastinum are normal. There is no mass, infiltrate, or effusion. There is right upper lobe atelectasis. The osseous structures are unremarkable.CONCLUSION: Right upper lobe atelectasis, no infiltrate or congestion.ELECTRONICALLY SIGNED BY DANUTA PERALTA M.D. 04/06/2021 2:29:20 PM EST.Reason for Study: A41.9 SEPSIS, UNSPECIFIED ORGANISMPrincipal Result Web Assistant: DANUTA PERALTA ([id number])Chartered Accountant: PABLITO CHAVIRA (BBIRKS)Recreation Establishment Manager Chartered Accountant: FLACA 04/06/2021 02:29 pm EST Encounters Encounter Performer Performer Role Encounter Diagnoses Location Date Discharge - Discharged / Transferred to another hospital - [facility] - [facility] 2 05:00 pm EST - 2 02:07 pm EST Discharge - Discharged to home or self care - [facility] - Private home/apt. with home health services [facility] 2 12:28 pm EST - 2 06:33 pm EDT Immunizations Vaccine Date Influenza 02/20/2021 12:00 am EST TB 2 Step Mantoux Skin Test PCV13 (Pneumococcal Conjugate)Vaccine 12:00 am EST SARS-COV-2 (COVID-19) 01/21/2021 12:00 a m EST SARS-COV-2 (COVID-19) 05/30/2020 12:00 a m EDT SARS-COV-2 (COVID-19) 05/02/2020 12:00 a m EST Social History
== END 2024-03-25 14:12 | disposition home or self-care (01) ==
LOC: HO.MAMMO 14:11
PROVIDERS: PCP Nurse Practitioner Family; Visit Provider Nurse Practitioner Family
DX: Z12.31 Encounter for screening mammogram for malignant neoplasm of breast (principal)
CPT/HCPCS: 77063; 77067

== ENCOUNTER → 2024-03-25 14:15 | Outpatient (BNV) | payer MEDICARE, MEDICAID, SELFPAY | PROVIDERS: PCP Nurse Practitioner Family; Visit Provider Internal Medicine | DX: Z12.31 Encounter for screening mammogram for malignant neoplasm of breast (principal) | CPT/HCPCS: 77063; 77067 ==

== ENCOUNTER 2024-04-11 17:23 | Inpatient (IN) | payer MEDICARE, MEDICAID, SELFPAY ==
--- NOTE | ~2024-04-11 | XR_ITS ---
CLINICAL HISTORY: productive cough 2 view chest x-ray Comparison: CR/WA/SR - XR CHEST 2V - 10/12/23 09:35 EDT CR/SR - XR CHEST 1V - 06/04/21 14:36 EDT Findings: Moderate right and mild left bibasilar patchy airspace opacity. Normal size heart. No acute fracture. IMPRESSION: Bibasilar pneumonia. This document has been electronically signed by: Margaret Lugo MD on 04/11/2024 18:31:44
--- NOTE | ~2024-04-11 | US_ITS ---
CLINICAL HISTORY: elevated lfts US abdomen complete Comparison: CT/SR - CT ABDOMEN PELVIS WO CON - 03/31/21 20:06 EST Findings: The visualized pancreas is normal. The main pancreatic duct measures 3 mm within the body. The aorta and inferior vena cava are normal caliber. The liver is normal in size and echotexture. Right hepatic lobe length measures 15.2 cm. There is no intrahepatic bile duct dilatation. The common duct is 3 mm in diameter. The gallbladder is normal. There is no sonographic Walls sign. The main portal vein is antegrade. The right kidney is 9.6 cm in length and is echogenic. The renal cortex is thinned. Right renal cysts measure up to 5.4 x 5.0 x 5.1 cm at the midpole. No suspicious features. The left kidney is 10.0 cm in length and is echogenic. The renal cortex is thinned. The spleen is normal. No ascites. IMPRESSION: 1. Normal appearing liver. 2. Bilateral renal parenchymal echogenicity and cortical thinning, which can be seen with medical renal disease. Benign-appearing right renal cysts measuring up to 5.4 cm. This document has been electronically signed by: Vern Martin DO on 04/12/2024 09:51:05
[2024-04-11 17:51] VITALS: BP 106/52; PULSE 71; RESP 22; TEMP 35.9; O2SAT 85; BMI 34.0
--- NOTE | 2024-04-11 17:51 | ED_ITS ---
HPI - General Adult General Chief complaint: Dyspnea Stated complaint: sob,hx of copd Time Seen by Provider: 04/11/24 18:22 Source: patient Mode of arrival: wheelchair Limitations: no limitations History of Present Illness ED Provider: Dr Ruff HPI narrative: Patient's 78 years old with history of CHF mitral stenosis AFib CKD stage 3 COPD comes here for increased shortness a breath for last 2 days with cough with mucopurulent phlegm no fever but had chills was saturating 85% at room air on arrival per family and patient was doing much better for last 3 years last hospitalization was in 2021 Related Data Home Medications ?Medication ?Instructions ?Recorded ?Confirmed albuterol sulfate 90 mcg/actuation 2 puff inhalation Q6H PRN Wheezing 09/23/20 04/11/24 aerosol inhaler (Ventolin HFA) cholecalciferol (vitamin D3) 50 50 mcg PO DAILY 09/23/20 04/11/24 mcg (2,000 unit) capsule lamotrigine 25 mg tablet 50 mg PO BEDTIME 09/23/20 04/11/24 melatonin 10 mg tablet 10 mg PO BEDTIME 03/31/21 04/11/24 cranberry 500 mg capsule 1,000 mg PO DAILY 06/16/22 04/11/24 olanzapine 7.5 mg tablet 7.5 mg PO BEDTIME 10/12/23 04/11/24 fluticasone fur. 100 mcg-umeclid 1 ea inhalation DAILY 04/11/24 04/11/24 62.5 mcg-vilant 25 mcg inhalat.powder (Trelegy Ellipta) furosemide 20 mg tablet 20 mg PO MOWEFR 04/11/24 04/11/24 hydroxyzine HCl 10 mg tablet 10 mg PO DAILY PRN anxiety 04/11/24 04/11/24 ofloxacin 0.3 % eye drops 1 - 2 drp ophthalmic (eye) QID 04/11/24 04/11/24 Previous Rx's ?Medication ?Instructions ?Recorded acetaminophen 325 mg capsule 325 mg PO QID PRN pain 7 days #28 07/24/22 caps simvastatin 20 mg tablet 20 mg PO BEDTIME #90 tabs 10/04/23 amiodarone 200 mg tablet 100 mg (1/2 x 200 mg) PO DAILY 90 12/07/23 days #45 tabs metoprolol succinate 25 mg 50 mg (2 x 25 mg) PO DAILY #180 12/21/23 tablet,extended release 24 hr tabs apixaban 5 mg tablet (Eliquis) 5 mg PO BID #60 tabs 02/26/24 Allergies Allergy/AdvReac Type Severity Reaction Status Date / Time Sulfa (Sulfonamide Allergy Severe RASH, Verified 04/11/24 17:55 Antibiotics) Anaphylaxis [SULFA (SULFONAMIDE ANTIBIOTICS)] Review of Systems 2 Review of Systems: Yes all other systems are reviewed and are negative [facility] Past Medical History Medical History Emphysema of lung Tardive dyskinesia Coarse tremors Hypersomnia Snoring SHARON (acute kidney injury) Mediastinal lymphadenopathy Atrial fibrillation Dyslipidemia Kidney disease Leukocytosis Necrotizing granulomatous inflammation of lung Bipolar 1 disorder Vitamin D deficiency COPD (chronic obstructive pulmonary disease) Sarcoidosis HTN (hypertension) [place] nephropathy Surgical History History of cardioversion History of bronchoscopy Family History Family History Child No Financial Resp No problems noted. Family/Other Substance use disorder Social History Social History Household Members: Family Household Members Other:: daughter lives downstairs Housing: House Are you a primary manager care management to a significant other at home: No Do you presently have visiting nurse or other home services: No Alcohol intake: never Patient Tobacco Use Status: Former Tobacco user Tobacco use type: Cigarette Years Smoked: 50 +/- Smoked in Last 30 Days: No e-Cigarette/Vaping Use: Never Used Second Hand Smoke Exposure: No Use of substances other than those prescribed or required for medical reasons: No Advance Directives: Yes Advance Directives on File: Yes Advance Directives Date on File: 04/26/21 Do you have a plan to hurt others: No Plan service: No Current occupational status: retired 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 Current occupational exposures/hazards: No Cognitive needs: No Hearing needs: No Vision needs: Yes Physical Exam ED Vital Signs: Vital Signs - 24 hr 04/11/24 17:51 04/11/24 18:50 04/11/24 19:46 Temperature 96.6 F L 98.3 F Pulse Rate 71 72 72 Respiratory Rate 22 H 21 H 21 H Blood Pressure 106/52 L 120/45 L Pulse Oximetry 85 L 96 Oxygen Delivery Method Room Air Nasal Cannula Oxygen Flow Rate 3 04/11/24 22:53 Temperature 98.5 F Pulse Rate 64 Respiratory Rate 20 Blood Pressure 128/64 Pulse Oximetry 99 Oxygen Delivery Method Nasal Cannula Oxygen Flow Rate 2 BMI result Body Mass Index 34.0 Appearance: Alert. Oriented X3. No acute distress. Eyes: No pallor or icterus ENT: Pharynx normal. Oral Mucosa moist Neck: Normal inspection. Neck supple. CVS: Normal heart rate and rhythm. Pulses normal. Holosystolic murmur at base Respiratory: No respiratory distress. Equal air entry bilateral, bilateral wheezing with decreased air entry bilaterally with rales at bases bilateral Abdomen: Soft and nontender. Bowel sounds are present, no mass palpable, no CVA tenderness Skin: Skin warm and dry. Normal skin color. Normal skin turgor. Extremities: No lower extremity edema. No calf tenderness Neuro: Oriented X 3. No motor deficit. No sensory deficit.No cerebellar signs , cranial nerves II-XII intact Course Course Course Narrative: This is a rapid medical exam performed by Leona Kuhn NP: Additional HPI, ROS, PE not included below will be deferred to primary provider. Patient is a 78-year-old female with pmhx of COPD, mitral stenosis, paroxysmal afib on eliquis, HTN presenting with complaint of productive cough and shortness of breath for the past few days. Daughter states she has been sweating, but has been checking her temps but patient has been afebrile. Using inhalers with little relief. O2 86% on room air in triage. Plan: park landscape architect notified, viral panel, CXR, labs Medications Administered Generic Name Dose Route Start Last Admin Trade Name Freq PRN Reason Stop Dose Admin Apixaban 5 mg 04/11/24 22:25 04/11/24 22:56 Apixaban 5 Mg Tablet PO 5 mg BID KENNEY Administration Lamotrigine 50 mg 04/11/24 22:30 04/11/24 22:56 Lamotrigine 25 Mg Tablet PO 50 mg BEDTIME KENNEY Administration Pt Own (Ofloxacin [ 2 drop 04/11/24 23:00 04/11/24 23:59 Ocuflox] 0.3 % Drops EYE-BOTH 2 drop ) QID KENNEY Administration Olanzapine 7.5 mg 04/11/24 22:30 04/11/24 22:56 Olanzapine 7.5 Mg Tablet PO 7.5 mg BEDTIME KENNEY Administration Sodium Chloride 3 ml 04/12/24 00:00 04/12/24 00:35 0.9 % Sodium Chloride Flush 3 Ml Syringe IVFLUSH Not Given QSHIFT KENNEY Discontinued Medications Generic Name Dose Route Start Last Admin Trade Name Ramiro PRN Reason Stop Dose Admin Albuterol Sulfate 2.5 mg/ 0 mg 04/11/24 18:50 04/11/24 19:21 Albuterol/Ipratropium 3 ml INHALE 04/11/24 18:51 1 dose ONCE ONE Administration Furosemide 20 mg 04/11/24 21:53 04/11/24 22:56 Furosemide 20 Mg/2 Ml Vial IVPUSH 04/11/24 21:54 20 mg ONCE ONE Administration Protocol Cefepime HCl 2 gm in 50 mls @ 100 mls/hr 04/11/24 18:39 04/11/24 20:02 Maxipime IV 04/11/24 19:08 Infused ONCE ONE Infusion Medical Decision Making Medical Decision Making [facility] Narrative: Patient's 78 years old with history of CHF mitral stenosis AFib CKD stage 3 COPD comes here for increased shortness a breath for last 2 days with cough with mucopurulent phlegm no fever but had chills was saturating 85% at room air on arrival workup showed bilateral basal pneumonia with CHF will admit patient for diuresis and antibiotics treatment Differential Diagnosis Differential Diagnoses: The differential diagnosis associated with the presentation includes CHF/pneumonia/bronchitis Admission/Observation Consideration of admission/observation: Escalation of care including admission/observation considered Consult Healthcare Provider Management of the patient was discussed with: Hospitalist Lab Data [facility] Lab Attestation statement: I reviewed the patient's lab results. 04/11/24 18:08 04/11/24 18:08 Labs: Lab Results 04/11/24 04/11/24 04/11/24 Range/Units 18:08 19:04 21:09 WBC 15.9 H (4.8-10.8) X10*3/uL RBC 4.26 (4.20-5.50) X10*6/uL Hgb 13.0 (12.0-16.0) g/dl Hct 39.2 (37.0-47.0) % MCV 92.0 (80.0-98.0) fL MCH 30.5 (27.0-33.0) pg MCHC 33.2 (31.0-35.0) g/dl RDW 13.8 (11.0-16.0) % Plt Count 366 D (160-400) X10*3/uL MPV 10.4 (9.4-12.3) fL Immature Gran % (Auto) 2.6 H (0.0-0.4) % Neut % (Auto) 85.2 H (45-73) % Lymph % (Auto) 5.3 L (20-40) % Treasure % (Auto) 6.1 (2-11) % Eos % (Auto) 0.4 (0-4) % Baso % (Auto) 0.4 (0-2) % Lymph # (Auto) 0.8 L (1.2-4.9) X10*3/uL Treasure # (Auto) 1.0 (0.1-1.2) X10*3/uL Eos # (Auto) 0.1 (0.0-0.4) X10*3/uL Baso # (Auto) 0.1 (0.0-0.2) X10*3/uL Abs Immat Gran (auto) 0.42 H (0.00-0.03) X10*3/uL Absolute Neuts (auto) 13.6 H (2.0-8.3) x10*3/uL Absolute Nucleated RBC 0.040 H (0.0-0.012) X10*3/uL Nucleated RBC % (auto) 0.3 H (0.0-0.2) /100WBC PT 23.1 H (10.9-12.4) SEC INR 2.0 H (0.9-1.1) VBG pH 7.43 (7.32-7.43) VBG pCO2 41 mmHg VBG pO2 56 mmHg VBG HCO3 27 H (22-26) mmol/L VBG O2 Saturation 83.0 % VBG Base Excess 3.1 mmol/L Sodium 141 (135-145) mmol/L Potassium 3.5 (3.3-5.1) mmol/L Chloride 103 (96-108) mmol/L Carbon Dioxide 24 (22-29) mmol/L Anion Gap 18 (12-20) BUN 63 H (9-16) mg/dL Creatinine 2.84 H (0.5-1.4) mg/dL Estim Creat Clear Calc 15.7 Estimated GFR 16 Random Glucose 237 H (60-115) mg/dL Lactic Acid 1.5 (0.5-2.0) mmol/L Calcium 10.4 H D (8.4-10.2) mg/dL Magnesium 2.4 (1.6-2.6) mg/dL Total Bilirubin 0.5 (0.0-1.0) mg/dL AST 50 H (5-31) U/L ALT 47 H (0-31) U/L Alkaline Phosphatase 102 (39-117) U/L Troponin I High Sens 249.6 H* 201.2 H* (<3.5-17.0) ng/L B-Natriuretic Peptide 1333 H (<100) pg/mL Total Protein 8.0 (6.5-8.0) g/dL Albumin 3.8 (3.5-5.0) g/dL Influenza Type A (PCR) NEGATIVE (Negative) Influenza Type B (PCR) NEGATIVE (Negative) RSV RNA Qual (PCR) NEGATIVE (Negative) SARS-CoV-2 RNA (RT-PCR) NEGATIVE (Negative) Independent Interpretation I performed an independent interpretation of an: EKG Interpretation: Normal sinus rhythm heart rate 72 beats per minute T inversion anterior leads prolonged QTC [address] elevation no acute ischemia Radiology Impression Discussion of test interpretation with radiology: I have reviewed the radiologist's reading. Radiologist Impression: [place] [id number] XRay Report Signed Patient: Nikki Borjas MR#: [id number] : 1945 Acct:[id number] Age/Sex: 78 / F ADM Date: 04/11/24 Loc: .ED Attending Dr: Ordering Physician: Kerry Kuhn NP Date of Service: 04/11/24 Procedure(s): XR chest 2V Accession Number(s): [id number] cc: Juan Jose Ellington [facility]-; Bam,Kerry RN NIGHT~ CLINICAL HISTORY: productive cough 2 view chest x-ray Comparison: CR/AK/SR - XR CHEST 2V - 10/12/23 09:35 EDT CR/SR - XR CHEST 1V - 06/04/21 14:36 EDT Findings: Moderate right and mild left bibasilar patchy airspace opacity. Normal size heart. No acute fracture. IMPRESSION: Bibasilar pneumonia. This document has been electronically signed by: Margaret Lugo MD on 04/11/2024 18:31:44 Discharge Plan Discharge Clinical Impression: Pneumonia, Congestive heart failure, Acute hypoxemic respiratory failure Patient Disposition: Admitted As Inpatient
--- NOTE | 2024-04-11 17:53 | ECG_ITS ---
Test Reason : DYSPNEA Blood Pressure : */* mmHG Vent. Rate : 72 BPM Atrial Rate : 72 BPM P-R Int : 178 ms QRS Dur : 86 ms QT Int : 470 ms P-R-T Axes : 61 43 4 degrees QTcB Int : 515 ms Normal sinus rhythm T wave abnormality, consider anterolateral ischemia Prolonged QT Abnormal ECG When compared with ECG of 25-Jun-2021 14:12, T wave inversion now evident in Anterolateral leads QT has lengthened Referred By: Kerry Kuhn Electronically Signed By: MAITE MACHADO
[2024-04-11 18:16] LABS: MANUAL DIFF FLAG NO
[2024-04-11 18:23] LABS: Basophils Absolute Auto 0.1 X10*3/uL (0.0-0.2); Basophils Percent Auto 0.4 % (0-2); Eosinophils Absolute Auto 0.1 X10*3/uL (0.0-0.4); Eosinophils Percent Auto 0.4 % (0-4); Hematocrit 39.2 % (37.0-47.0); Imm Gran Abs Auto 0.42 X10*3/uL (0.00-0.03); Imm Gran Pct Auto 2.6 % (0.0-0.4); Lymphocytes Absolute Auto 0.8 X10*3/uL (1.2-4.9); Lymphocytes Percent Auto 5.3 % (20-40); Mean Corpuscular HGB Conc 33.2 g/dl (31.0-35.0); Mean Corpuscular Hemoglobin 30.5 pg (27.0-33.0); Mean Platelet Volume 10.4 fL (9.4-12.3); Monocytes Percent Auto 6.1 % (2-11); NRBC Pct Auto 0.3 /100WBC (0.0-0.2); Neutrophils Absolute Auto 13.6 x10*3/uL (2.0-8.3); Neutrophils Percent Auto 85.2 % (45-73); Platelet Count 366 X10*3/uL (160-400); Red Blood Count 4.26 X10*6/uL (4.20-5.50); Red Cell Distribution Width 13.8 % (11.0-16.0); White Blood Count 15.9 X10*3/uL (4.8-10.8)
[2024-04-11 18:38] LABS: Prothrombin Time 23.1 SEC (10.9-12.4)
[2024-04-11 18:39] LABS: Alanine Aminotransferase 47 U/L (0-31); Albumin Level 3.8 g/dL (3.5-5.0); Alkaline Phosphatase 102 U/L (39-117); Anion Gap 18 (12-20); Aspartate Amino Transferase 50 U/L (5-31); Bilirubin Total 0.5 mg/dL (0.0-1.0); Blood Urea Nitrogen 63 mg/dL (9-16); Calcium 10.4 mg/dL (8.4-10.2); Carbon Dioxide 24 mmol/L (22-29); Chloride 103 mmol/L (96-108); Creatinine Clr Calc Pharmacy 15.7; Estimated Glomerular Filt Rate 16; Glucose Random 237 mg/dL (60-115); Potassium 3.5 mmol/L (3.3-5.1); Sodium 141 mmol/L (135-145)
[2024-04-11 18:40] LABS: B Type Natriuretic Peptide 1333 pg/mL (<100); Lactic Acid 1.5 mmol/L (0.5-2.0)
[2024-04-11 18:50] VITALS: BP 120/45; PULSE 72; RESP 21; TEMP 36.8; O2SAT 96
[2024-04-11 18:50] LABS: Troponin-I High Sensitivity 249.6 ng/L (<3.5-17.0)
[2024-04-11 18:56] LABS: Influenza A PCR NEGATIVE (Negative); Influenza B PCR NEGATIVE (Negative); Resp Syncy Virus RNA Qual PCR NEGATIVE (Negative); SARS COV2 PCR INHOUSE NEGATIVE (Negative)
[2024-04-11 19:08] LABS: VBG Base Excess 3.1 mmol/L; VBG HCO3 27 mmol/L (22-26); VBG pCO2 41 mmHg; VBG pH 7.43 (7.32-7.43); VBG pO2 56 mmHg
[2024-04-11 19:09] LABS: Venous Blood Gas Refer to POC result
[2024-04-11] MEDS: Albuterol Sulfate 2.5 MG, Albuterol/Iprat 2.5/0.5MG 3 ML 3 ML INHALE (19:21)
[2024-04-11] MEDS: cefEPime HCl/D5W 2 GM/50 ML PIGGYBACK IV (19:32)
[2024-04-11 19:46] VITALS: PULSE 72; RESP 21; O2SAT 94
--- OUTSIDE RECORDS SUMMARY | 2024-04-11 19:58 | XMS_ITS | Encounter Summary ---
Author Organization [facility] Address [address] [place] [address] Phone Care Team Providers Care Translator Interpreter Name Role Phone Juan Jose Ellington SALES PROJECT MANAGER Primary Care Provider [phone] Encounter Details Date Type Department Care Team (Late Contact Info) Description 03/19/2024 Documentation Only [facility] [address] [place] [address] Tatyana Ritchie [address] [place] [address] Social History Tobacco Use Types Packs/Day Years Used Date Smoking Tobacco: Former Cigarettes Q uit: 02/19/2015 Comments Unknown Sex and Gender Information Value Date Recorded Sex Assigned at Not on file Legal Sex Female 4:34 PM EST Gender Identity Not on file Sexual Orientation Not on file documented as of this encounter Plan of Treatment Upcoming Encounters Date Type Department Care Team (Late st Contact Info) Description 09/19/2024 3:00 PM EDT Office Visit [facility] [address] [place] [address] Cortes Rowe MD [address] [place] [address] [place] [address] documented as of this encounter Visit Diagnoses Not on filedocumented in this encounter Care Teams Translator Interpreter Relationship Specialty Start Date End Date Juan Jose Ellington NP [address] [place] [address] PCP - General 12/25/18 documented as of this encounter
--- OUTSIDE RECORDS SUMMARY | 2024-04-11 19:58 | XMS_ITS | Encounter Summary ---
Author Organization [facility] Address [address] [place] [address] Phone Care Team Providers Care Elocution Teacher Name Role Phone Juan Jose Ellington CORK PAINTER AND GRADER Primary Care Provider [phone] Encounter Details Date Type Department Care Team (Late Contact Info) Description 03/19/2024 Documentation Only [facility] [address] [place] [address] Tatyana Ritchie [address] [place] [address] Social History Tobacco Use Types [...] Visit [facility] [address] [place] [address] Cortes Rowe MD [address] [place] [address] [place] [address] documented as of this encounter Visit Diagnoses Not on filedocumented in this encounter Care Teams Elocution Teacher Relationship Specialty Start Date End Date Juan Jose Ellington NP [address] [place] [address] PCP - General 12/25/18 documented as of this encounter
--- OUTSIDE RECORDS SUMMARY | 2024-04-11 19:59 | XMS_ITS | Encounter Summary ---
Author Organization [facility] Address [address] [place] [address] Phone Care Team Providers Care Pt Escort Name Role Phone Juan Jose Ellington BASTING MARKER Primary Care Provider [phone] Encounter Details Date Type Department Care Team (Late Contact Info) Description 10/25/2023 Documentation Only [facility] [address] [place] [address] Tatyana Ritchie [address] [place] [address] Social History Tobacco Use Types [...] Visit [facility] [address] [place] [address] Cortes Rowe MD [address] [place] [address] [place] [address] documented as of this encounter Visit Diagnoses Not on filedocumented in this encounter Care Teams Pt Escort Relationship Specialty Start Date End Date Juan Jose Ellington NP [address] [place] [address] PCP - General 12/25/18 documented as of this encounter
--- OUTSIDE RECORDS SUMMARY | 2024-04-11 19:59 | XMS_ITS | Encounter Summary ---
Author Organization [facility] Address [address] [place] [address] Phone Care Team Providers Care Muskrat Trapper Name Role Phone Juan Jose Ellington WINE MASTER Primary Care Provider [phone] Encounter Details Date Type Department Care Team (Late Contact Info) Description 03/26/2024 Documentation Only [facility] [address] [address] Tatyana Ritchie [address] [place] [address] Social History Tobacco Use Types [...] Visit [facility] [address] [place] [place] [address] Cortes Rowe MD [address] [place] [address] [place] [address] documented as of this encounter Visit Diagnoses Not on filedocumented in this encounter Care Teams Muskrat Trapper Relationship Specialty Start Date End Date Juan Jose Ellington NP [address] [place] [address] PCP - General 12/25/18 documented as of this encounter
--- OUTSIDE RECORDS SUMMARY | 2024-04-11 19:59 | XMS_ITS | Encounter Summary ---
Author Organization [facility] Address [address] [place] [address] Phone Care Team Providers Care Laboratory Technologist Name Role Phone Juan Jose Ellington JOSIAH Primary Care Provider [phone] Encounter Details Date Type Department Care Team (Late st Contact Info) Description 03/21/2024 1:30 PM EST Office Visit [facility] [address] [place] [address] Cortes Rowe MD [address] [place] [address] Stage 3b chronic kidney disease (HCC) (Primary Dx) Social History Tobacco Use Types Packs/Day Years Used Date Smoking Tobacco: Former Cigarettes Q uit: 02/19/2015 Comments Unknown Sex and Gender Information Value Date Recorded Sex Assigned at Not on file Legal Sex Female 4:34 PM EST Gender Identity Not on file Sexual Orientation Not on file documented as of this encounter Last Filed Vital Signs Vital Sign Reading Time Taken Comments Blood Pressure 120/68 03/21/2024 1:47 PM EST Pulse 56 03/21/2024 1:47 PM EST Temperature - - Respiratory Rate - - Oxygen Saturation - - Inhaled Oxygen Concentration - - Weight - - Height - - Body Mass Index - - documented in this encounter Plan of Treatment Upcoming Encounters Date Type Department Care Team (Late st Contact Info) Description 09/19/2024 3:00 PM EDT [facility] [address] [place] [address] Cortes Rowe MD [address] [place] [address] Scheduled Orders Name Type Priority Associated Diagnoses Orde r Schedule Phosphorus Lab Routine Stage 3b chronic kidney disease (HCC) Expected: 03/21/2024, Expires: 04/19/2025 documented as of this encounter Procedures Procedure Name Priority Date/Time Associated Diagnosis Comments IRON PANEL (FE, TIBC, TSAT) Routine 03/21/2024 2:21 PM EST Stage 3b chronic kidney disease (HCC) VITAMIN D 25 HYDROXY Routine 03/21/2024 2:21 PM EST Stage 3b chronic kidney disease (HCC) CBC AND DIFFERENTIAL Routine 03/21/2024 2:21 PM EST Stage 3b chronic kidney disease (HCC) PTH, INTACT Routine 03/21/2024 2:21 PM EST Stage 3b chronic kidney disease (HCC) FERRITIN Routine 03/21/2024 2:21 PM EST Stage 3b chronic kidney disease (HCC) RENAL FUNCTION PANEL Routine 03/21/2024 2:21 PM EST Stage 3b chronic kidney disease (HCC) documented in this encounter Results * (ABNORMAL) Vitamin D 25 Hydroxy (03/21/2024 2:21 PM EST) Vitamin D, 25-OH, Total 29.6(L) 30.0 - 100.0 ng/mL [facility] Comment: Vitamin D deficiency has been defined by the [employer] of Medicine and an Endocrine Society practice guideline as a level of serum 25-OH vitamin D less than 20 ng/mL (1,2). The Endocrine Society went on to further define vitamin D insufficiency as a level between 21 and 29 ng/mL (2). 1. IOM ([employer] of Medicine). 2010. Dietary reference ?? intakes for calcium and D. Dias [place]: The ?? National AcademCancer Therapy and Research Center Press. 2. Ubaldo MF, Janice NC, Arturo REDDY, et al. ?? Evaluation, treatment, and prevention of vitamin D ?? deficiency: an Endocrine Society clinical practice ?? guideline. JCEM. 2010; 96(7):1911-30. Blood (Blood, Venous) 03/21/2024 2:21 PM EST 03/21/2024 us Cortes Rowe MD LAB BLOOD ORDERABLES Final Re sult [facility] [address] [place] [address] * (ABNORMAL) Renal Function Panel (03/21/2024 2:21 PM EST) Glucose 82 70 - 99 mg/dL [facility] BUN 39(H) 8 - 27 mg/dL [facility] Creatinine 2.06(H) 0.57 - 1.00 mg/dL [facility] eGFR CKD-EPI CR 2020 24(L) >59 mL/min/1.7 3 [facility] BUN/Creatinine Ratio 19 12 - 28 [facility] Sodium 141 134 - 144 mmol/L [facility] Potassium 4.3 3.5 - 5.2 mmol/L [facility] Chloride 102 96 - 106 mmol/L [facility] Bicarbonate (CO2) 23 20 - 29 mmol/L [facility] Calcium 9.8 8.7 - 10.3 mg/dL [facility] Albumin 4.6 3.8 - 4.8 g/dL [facility] Phosphorus 3.6 3.0 - 4.3 mg/dL [facility] Blood (Blood, Venous) 03/21/2024 2:21 PM EST 03/21/2024 Cortes Rowe MD LAB BLOOD ORDERABLES Final Re sult Performing Organization Address City/[facility]/ZIP Co de Phone Number [facility] [address] [place] [address] * (ABNORMAL) PTH, Intact (03/21/2024 2:21 PM EST) PTH 87(H) 15 - 65 pg/mL [facility] Blood (Blood, Venous) 03/21/2024 2:21 PM EST 03/21/2024 Cortes Rowe MD LAB BLOOD ORDERABLES Final Re sult Performing Organization Address [facility] Co de Phone Number [facility] [address] [place] [address] * (ABNORMAL) Ferritin (03/21/2024 2:21 PM EST) Ferritin 181(H) 15 - 150 ng/mL [facility] Blood (Blood, Venous) 03/21/2024 2:21 PM EST 03/21/2024 Cortes Rowe MD LAB BLOOD ORDERABLES Final Re sult Performing Organization Address [facility]/ZIP Co de Phone Number [facility] [address] [place] [address] * Iron Panel (Fe, TIBC, TSAT) (03/21/2024 2:21 PM EST) TIBC 374 250 - 450 ug/dL [facility] UIBC 281 118 - 369 ug/dL [facility] Iron 93 27 - 139 ug/dL [facility] Iron Saturation (TSat) 25 15 - 55 % [facility] Blood (Blood, Venous) 03/21/2024 2:21 PM EST 03/21/2024 us Cortes Rowe MD LAB BLOOD ORDERABLES Final Re sult [facility] [address] [place] [address] * CBC and Differential (03/21/2024 2:21 PM EST) WBC 8.2 3.4 - 10.8 x10E3/uL [facility] RBC 4.28 3.77 - 5.28 x10E6/uL [facility] Hemoglobin 13.5 11.1 - 15.9 g/dL [facility] Hematocrit 40.5 34.0 - 46.6 % [facility] MCV 95 79 - 97 fL [facility] MCH 31.5 26.6 - 33.0 pg [facility] MCHC 33.3 31.5 - 35.7 g/dL [facility] RDW 12.9 11.7 - 15.4 % [facility] Platelets 246 150 - 450 x10E3/uL [facility] Neutrophils Relative 70 Not Estab. % [facility] Lymphocytes Relative 13 Not Estab. % [facility] Monocytes 10 Not Estab. % [facility] Eosinophils Relative 5 Not Estab. % [facility] Basophils Relative 1 Not Estab. % [facility] Neutrophils Absolute 5.8 1.4 - 7.0 x10E3/uL [facility] Lymphocytes Absolute 1.1 0.7 - 3.1 x10E3/uL [facility] Monocytes Absolute 0.8 0.1 - 0.9 x10E3/uL [facility] Eosinophils Absolute 0.4 0.0 - 0.4 x10E3/uL [facility] Basophils Absolute 0.1 0.0 - 0.2 x10E3/uL [facility] Immature Granulocytes 1 Not Estab. % [facility] Immature Grans (Absolute) 0.1 0.0 - 0.1 x10E3/uL [facility] Blood (Blood, Venous) 03/21/2024 2:21 PM EST 03/21/2024 us Cortes Rowe MD LAB BLOOD ORDERABLES Final Re sult [facility] Organization Address City/State/ZIP Co de Phone Number [facility] [address] [place] [address] documented in this encounter Visit Diagnoses Diagnosis Stage 3b chronic kidney disease (HCC)- Primary documented in this encounter Care Teams Laboratory Technologist Relationship Specialty Start Date End Date Juan Jose Ellington NP [address] [place] [address] PCP - General 12/25/18 documented as of this encounter
--- OUTSIDE RECORDS SUMMARY | 2024-04-11 19:59 | XMS_ITS | Encounter Summary ---
Author Organization [facility] Address [address] [place] [address] Phone Care Team Providers Care Reel Cutter Name Role Phone Juan Jose Ellington ROBOTIC TECHNICIAN Primary Care Provider [phone] Encounter Details Date Type Department Care Team (Late Contact Info) Description 10/25/2023 Documentation Only [facility] [address] [place] [address] Tatyana Ritchie [address] [place] [address] Social History Tobacco Use Types [...] Visit [facility] [address] [place] [address] Cortes Rowe MD [address] [place] [address] [place] [address] documented as of this encounter Visit Diagnoses Not on filedocumented in this encounter Care Teams Reel Cutter Relationship Specialty Start Date End Date Juan Jose Ellington NP [address] [place] [address] PCP - General 12/25/18 documented as of this encounter
--- OUTSIDE RECORDS SUMMARY | 2024-04-11 19:59 | XMS_ITS | Clinical Summary ---
Author Organization [facility], Address [address] [place] [address] [place] [address] Phone Care Team Providers Care Manager People Name Role Phone Juan Jose Ellington NP Primary Care Provider [phone] Allergies No known active allergies Medications albuterol HFA (Ventolin HFA) 108 (90 Base) MCG/ACT inhaler Inhale 2 puffs 09/11/2018 Active divalproex (DEPAKOTE) 250 MG EC tablet Take 250 mg by mouth Active lamoTRIgine (LaMICtal) 50 MG dispersible tablet Take by mouth Active OLANZapine (ZyPREXA) 2.5 MG tablet Take 1 tablet by mouth at bed time Active simvastatin (ZOCOR) 5 MG tablet Take 1 tablet by mouth at bed time Active simvastatin (ZOCOR) 20 MG tablet Take 20 mg by mouth Active umeclidinium-tia anterol (Anoro Ellipta) 62.5-25 MCG/INH aerosol powder Inhale 62.5 mcg 07/23/2019 Active Active Problems Problem Noted Date Diagnosed Date Chronic kidney disease stage 3 08/27/2019 Microcystic renal disease 08/27/2019 Serum creatinine above reference range 0 Hyperlipidemia 10/11/2018 Hypertension 10/11/2018 Resolved Problems Problem Noted Date Diagnosed Date Resolved Date Metastatic malignant neoplasm to unknown site 08/27/19 20 08/27/2019 Bipolar disorder 10/11/2018 08/27/2019 Chronic obstructive pulmonary disease 10/11/2018 08/27/2019 Lung mass 10/11/2018 08/27/2019 Overview (08/27/2019): RUL-05/30/18 S/p VATS & wedge resection-no malignancy Sarcoidosis of lung 10/11/2018 08/27/19 20 Encounters Date Type Department Care Team Description 03/26/2024 Orders Only [facility] [address] [place] [phone] Cortes Rowe MD 03/26/2024 Documentation Only [facility] [address] [place] [phone] Tatyana Ritchie 03/21/2024 1:30 PM EST Office Visit [facility] [address] [place] [phone] Cortes Rowe MD Stage 3b chronic kidney disease (HCC) (Primary Dx) 03/19/2024 Documentation Only [facility] [address] [place] [phone] Tatyana Ritchie 03/19/2024 Documentation Only [facility] [address] [place] [address] Tatyana Ritchie from Last 3 Months Family History Relation Status Comments Father Social History Tobacco Use Types Packs/Day Years Used Date Smoking Tobacco: Former Cigarettes Q uit: 02/19/2015 Comments Unknown Sex and Gender Information Value Date Recorded Sex Assigned at Not on file Legal Sex Female 4:34 PM EST Gender Identity Not on file Sexual Orientation Not on file Last Filed Vital Signs Vital Sign Reading Time Taken Comments Blood Pressure 120/68 03/21/2024 1:47 PM EST Pulse 56 03/21/2024 1:47 PM EST Temperature - - Respiratory Rate - - Oxygen Saturation - - Inhaled Oxygen Concentration - - Weight 68 kg (150 lb) 10/23/2018 12:00 PM EDT Height 154.9 cm (5' 1 ) 10/23/2018 12:00 PM EDT Body Mass Index 28.34 10/23/2018 12:00 PM EDT Plan of Treatment Upcoming Encounters Date Type Department Care Team (Late st Contact Info) Description 09/19/2024 3:00 PM EDT Office Visit [facility] [address] [place] [phone] Cortes Rowe MD [address] [place] [address] Health Maintenance Due Date Last Done Comments Pneumococcal Vaccine: 65+ Ye ars (2 of 2 - PPSV23 or PCV20) 04/17/2021 02/20/2021 Influenza Vaccine (#1) 2023 Hepatitis B Vaccine Aged Out No longe r eligible based on patient's age to complete this topic Procedures Procedure Name Priority Date/Time Associated Diagnosis Comments URINE ALBUMIN / CREATININE RATIO Routine 03/26/2024 9:00 AM EST PROTEIN / CREATININE RATIO, URINE Routine 03/26/2024 9:00 AM EST URINALYSIS WITH MICROSCOPIC Routine 03/26/2024 9:00 AM EST MICROSCOPIC EXAMINATION - DO NOT USE Routine 03/26/2024 9:00 AM EST VITAMIN D 25 HYDROXY Routine 03/21/2024 2:21 PM EST Stage 3b chronic kidney disease (HCC) RENAL FUNCTION PANEL Routine 03/21/2024 2:21 PM EST Stage 3b chronic kidney disease (HCC) PTH, INTACT Routine 03/21/2024 2:21 PM EST Stage 3b chronic kidney disease (HCC) FERRITIN Routine 03/21/2024 2:21 PM EST Stage 3b chronic kidney disease (HCC) IRON PANEL (FE, TIBC, TSAT) Routine 03/21/2024 2:21 PM EST Stage 3b chronic kidney disease (HCC) CBC AND DIFFERENTIAL Routine 03/21/2024 2:21 PM EST Stage 3b chronic kidney disease (HCC) from Last 3 Months Results * Microscopic Examination (03/26/2024 9:00 AM EST) WBC, Urine 0-5 0 - 5 /hpf [facility] RBC, Urine None seen 0 - 2 /hpf [facility] Squamous Epithelial, Urine 0-10 0 - 10 /hpf [facility] Casts None seen None seen /lpf [facility] Bacteria, Urine None seen None seen/Few [facility] 03/26/2024 9:00 AM EST 03/26/2024 Cortes Rowe MD LAB MICROBIOLOGY - GENERAL OR DERABLES Final Result Performing Organization Address City/[facility] [address]/ZIP Co de Phone Number [facility] [address] [place] [address] * Protein, Total, Random Urine w/Creatinine (Protein/Creat Ratio) (03/26/2024 9:00 AM EST) Creatinine, Ur 85.8 Not Estab. mg/dL [facility] Protein, Ur 7.3 Not Estab. mg/dL [facility] Urine Protein/Creatin ine Ratio 85 0 - 200 mg/g creat [facility] 03/26/2024 9:00 AM EST 03/26/2024 Cortes Rowe MD LAB URINE ORDERABLES Final Re sult Performing Organization Address City/[facility] [address]/ZIP Co de Phone Number [facility] [address] [place] [address] * Urine Albumin / Creatinine Ratio (03/26/2024 9:00 AM EST) Albumin, Urine <3.0 Not Estab. ug/mL [facility] Albumin/Creatin ine Ratio <3 0 - 29 mg/g creat [facility] Comment: ? Normal: ?0 - ??29 ? Moderately increased: 30 - 300 ? Severely increased: ? >300 03/26/2024 9:0 0 AM EST 03/26/2024 us Cortes Rowe MD LAB URINE ORDERABLES Final Lashon thapa [facility] [address] [place] [address] * (ABNORMAL) Urinalysis with microscopic (03/26/2024 9:00 AM EST) Specific [place], Urine 1.012 1.005 - 1.030 [facility] pH Urine 6.0 5.0 - 7.5 [facility] Color, Urine Yellow Yellow [facility] [phone] Appearance Urine Clear Clear [facility] WBC Esterase Urine Trace(A) Negative [facility] Protein, Ur Negative Negative/Tra ce [facility] Glucose, Ur Negative Negative [facility] Ketones, Urine Negative Negative [facility] Blood Urine Negative Negative [facility] Bilirubin Urine Negative Negative [facility] Urobilinogen Urine 0.2 0.2 - 1.0 mg/dL [facility] Nitrite, Urine Negative Negative [facility] Microscopic Examination See below: [facility] Comment:Microscopic was isidro cated and was performed. 03/26/2024 9:00 AM EST 03/26/2024 Cortes Rowe MD LAB URINE ORDERABLES Final Re sult Performing Organization Address [facility] [address] [facility] Co de Phone Number [facility] [address] [place] [address] * Iron Panel (Fe, TIBC, TSAT) (03/21/2024 2:21 PM EST) TIBC 374 250 - 450 ug/dL [facility] UIBC 281 118 - 369 ug/dL [facility] Iron 93 27 - 139 ug/dL [facility] Iron Saturation (TSat) 25 15 - 55 % [facility] Blood (Blood, Venous) 03/21/2024 2:21 PM EST 03/21/2024 Cortes Rowe MD LAB BLOOD ORDERABLES Final Re sult Performing Organization Address [facility] [address] [facility] de Phone Number [facility] [address] [place] [address] * (ABNORMAL) Vitamin D 25 Hydroxy (03/21/2024 2:21 PM EST) Vitamin D, 25-OH, Total 29.6(L) 30.0 - 100.0 ng/mL [facility] Comment: Vitamin D deficiency has been defined by the [place] of [employer] and an Endocrine Society practice guideline as a level of serum 25-OH vitamin D less than 20 ng/mL (1,2). The Endocrine Society went on to further define vitamin D insufficiency as a level between 21 and 29 ng/mL (2). 1. IOM ([place] of [employer]). 2010. Dietary reference ?? intakes for calcium and D. Dias [place]: The ?? National Academies Press. 2. Ubaldo MF, Janice NC, Arturo REDDY, et al. ?? Evaluation, treatment, and prevention of vitamin D ?? deficiency: an Endocrine Society clinical practice ?? guideline. JCEM. 2010; 96(7):1911-30. Blood (Blood, Venous) 03/21/2024 2:21 PM EST 03/21/2024 us Cortes Rowe MD LAB BLOOD ORDERABLES Final [facility] [address] [place] [address] * CBC and Differential (03/21/2024 2:21 PM EST) WBC 8.2 3.4 - 10.8 x10E3/uL [facility] RBC 4.28 3.77 - 5.28 x10E6/uL [facility] Hemoglobin 13.5 11.1 - 15.9 g/dL [facility] Hematocrit 40.5 34.0 - 46.6 % [facility] MCV 95 79 - 97 fL [facility] MCH 31.5 26.6 - 33.0 pg [facility] MCHC 33.3 31.5 - 35.7 g/dL [facility] RDW 12.9 11.7 - 15.4 % [facility] Platelets 246 150 - 450 x10E3/uL [facility] Neutrophils Relative 70 Not Estab. % [facility] Lymphocytes Relative 13 Not Estab. % [facility] Monocytes 10 Not Estab. % [facility] Eosinophils Relative 5 Not Estab. % [facility] Basophils Relative 1 Not Estab. % [facility] Neutrophils Absolute 5.8 1.4 - 7.0 x10E3/uL [facility] Lymphocytes Absolute 1.1 0.7 - 3.1 x10E3/uL [facility] Monocytes Absolute 0.8 0.1 - 0.9 x10E3/uL [facility] Eosinophils Absolute 0.4 0.0 - 0.4 x10E3/uL [facility] Basophils Absolute 0.1 0.0 - 0.2 x10E3/uL [facility] Immature Granulocytes 1 Not Estab. % [facility] Immature Grans (Absolute) 0.1 0.0 - 0.1 x10E3/uL [facility] Blood (Blood, Venous) 03/21/2024 2:21 PM EST 03/21/2024 Cortes Rowe MD LAB BLOOD ORDERABLES Final Re sult [facility] [address] [place] [address] * (ABNORMAL) PTH, Intact (03/21/2024 2:21 PM EST) PTH 87(H) 15 - 65 pg/mL [facility] Blood (Blood, Venous) 03/21/2024 2:21 PM EST 03/21/2024 Cortes Rowe MD LAB BLOOD ORDERABLES Final Re sult [facility] [address] [place] [address] * (ABNORMAL) Ferritin (03/21/2024 2:21 PM EST) Ferritin 181(H) 15 - 150 ng/mL [facility] Blood (Blood, Venous) 03/21/2024 2:21 PM EST 03/21/2024 Cortes Rowe MD LAB BLOOD ORDERABLES Final Re sult [facility] [address] [place] [address] * (ABNORMAL) Renal Function Panel (03/21/2024 2:21 PM EST) Pathologist [facility] Glucose 82 70 - 99 mg/dL [facility] BUN 39(H) 8 - 27 mg/dL [facility] Creatinine 2.06(H) 0.57 - 1.00 mg/dL [facility] eGFR CKD-EPI CR 2020 24(L) >59 mL/min/1.7 3 [facility] BUN/Creatinine Ratio 19 12 - 28 [facility] Sodium 141 134 - 144 mmol/L [facility] Potassium 4.3 3.5 - 5.2 mmol/L [facility] Chloride 102 96 - 106 mmol/L [facility] Bicarbonate (CO2) 23 20 - 29 mmol/L [facility] Calcium 9.8 8.7 - 10.3 mg/dL [facility] Albumin 4.6 3.8 - 4.8 g/dL [facility] Phosphorus 3.6 3.0 - 4.3 mg/dL [facility] Blood (Blood, Venous) 03/21/2024 2:21 PM EST 03/21/2024 us Cortes Rowe MD LAB BLOOD ORDERABLES Final Re sult [facility] [address] [place] [phone] from Last 3 Months Insurance [place]ID [place] Care Teams Manager People Relationship Specialty Start Date End Date Juan Jose Ellington NP [address] [place] [address] PCP - General 12/25/18
--- OUTSIDE RECORDS SUMMARY | 2024-04-11 19:59 | XMS_ITS | Encounter Summary ---
Author Organization [facility] Address [address] [place] [address] Phone Care Team Providers Care Dresser Tender Name Role Phone Juan Jose Ellington POTTERY DECORATOR Primary Care Provider [phone] Encounter Details Date Type Department Care Team (Late Contact Info) Description 10/12/2023 Documentation Only [facility] [address] [place] [address] Tatyana Ritchie [address] [place] [address] Social History Tobacco Use Types [...] Visit [facility] [address] [place] [address] Cortes Rowe MD [address] [place] [address] [place] [address] documented as of this encounter Visit Diagnoses Not on filedocumented in this encounter Care Teams Dresser Tender Relationship Specialty Start Date End Date Juan Jose Ellington NP [address] [facility] [place] [address] PCP - General 12/25/18 documented as of this encounter
--- OUTSIDE RECORDS SUMMARY | 2024-04-11 19:59 | XMS_ITS | Encounter Summary ---
Author Organization [facility] Address [address] [place] [address] Phone Care Team Providers Care Transportation Modeler Name Role Phone Juan Jose Ellington TRAVELING OPERATOR Primary Care Provider [phone] Encounter Details Date Type Department Care Team (Late Contact Info) Description 10/25/2023 Documentation Only [facility] [address] [place] [address] Tatyana Ritchie [address] [place] [address] Social History Tobacco Use Types [...] Visit [facility] [address] [place] [address] Cortes Rowe MD [address] [place] [address] [place] [address] documented as of this encounter Visit Diagnoses Not on filedocumented in this encounter Care Teams Transportation Modeler Relationship Specialty Start Date End Date Juan Jose Ellington NP [address] [facility] [place] [address] PCP - General 12/25/18 documented as of this encounter
--- OUTSIDE RECORDS SUMMARY | 2024-04-11 19:59 | XMS_ITS | Encounter Summary ---
Author Organization [facility] Address [address] [place] [address] Phone Care Team Providers Care Systems Software Manager Name Role Phone Juan Jose Ellington JOSIAH Primary Care Provider [phone] Encounter Details Date Type Department Care Team (Late Contact Info) Description 03/26/2024 Orders Only [facility] [address] [place] [address] Cortes Rowe MD [address] [facility] [place] [address] Social History Tobacco Use Types Packs/Day Years Used Date Smoking Tobacco: Former Cigarettes Q uit: 02/19/2015 Comments Unknown Sex and Gender Information Value Date Recorded Sex Assigned at Not on file Legal Sex Female 4:34 PM EST Gender Identity Not on file Sexual Orientation Not on file documented as of this encounter Plan of Treatment Upcoming Encounters Date Type Department Care Team (Late Contact Info) Description 09/19/2024 3:00 PM EDT Office Visit [facility] [place], [address] [facility] [place] [address] Cortes Rowe MD [address] [facility] [place] [address] documented as of this encounter Procedures Procedure Name Priority Date/Time Associated Diagnosis Comments MICROSCOPIC EXAMINATION - DO NOT USE Routine 03/26/2024 9:00 AM EST PROTEIN / CREATININE RATIO, URINE Routine 03/26/2024 9:00 AM EST URINE ALBUMIN / CREATININE RATIO Routine 03/26/2024 9:00 AM EST URINALYSIS WITH MICROSCOPIC Routine 03/26/2024 9:00 AM EST documented in this encounter Results * Urine Albumin / Creatinine Ratio (03/26/2024 9:00 AM EST) Albumin, Urine <3.0 Not Estab. ug/mL [facility] Albumin/Creatin ine Ratio <3 0 - 29 mg/g creat [facility] Comment: ? Normal: ?0 - ??29 ? Moderately increased: 30 - 300 ? Severely increased: ? >300 03/26/2024 9:00 AM EST 03/26/2024 us Cortes Rowe MD LAB URINE ORDERABLES Final [facility] [address] [place] [phone] * Protein, Total, Random Urine w/Creatinine (Protein/Creat Ratio) (03/26/2024 9:00 AM EST) Creatinine, Ur 85.8 Not Estab. mg/dL [facility] Protein, Ur 7.3 Not Estab. mg/dL [facility] Urine Protein/Creatin ine Ratio 85 0 - 200 mg/g creat [facility] 03/26/2024 9:00 AM EST 03/26/2024 Cortes Rowe MD LAB URINE ORDERABLES Final Re sult [facility] [address] [place] [phone] * Microscopic Examination (03/26/2024 9:00 AM EST) WBC, Urine 0-5 0 - 5 /hpf [facility] RBC, Urine None seen 0 - 2 /hpf [facility] Squamous Epithelial, Urine 0-10 0 - 10 /hpf [facility] Casts None seen None seen /lpf [facility] Bacteria, Urine None seen None seen/Few [facility] 03/26/2024 9:00 AM EST 03/26/2024 Cortes Rowe MD LAB MICROBIOLOGY - GENERAL OR DERABLES Final Result Performing Organization Address City/[facility]/ZIP Co de Phone Number [facility] [address] [place] [phone] * (ABNORMAL) Urinalysis with microscopic (03/26/2024 9:00 AM EST) Specific [place], Urine 1.012 1.005 - 1.030 [facility] pH Urine 6.0 5.0 - 7.5 [facility] Color, Urine Yellow Yellow [facility] Appearance Urine Clear Clear [facility] WBC Esterase Urine Trace(A) Negative [facility] [phone] Protein, Ur Negative Negative/Tra ce [facility] [phone] Glucose, Ur Negative Negative [facility] Ketones, Urine Negative Negative [facility] Blood Urine Negative Negative [facility] Bilirubin Urine Negative Negative [facility] [phone] Urobilinogen Urine 0.2 0.2 - 1.0 mg/dL [facility] Nitrite, Urine Negative Negative [facility] Microscopic Examination See below: [facility] [phone] Comment:Microscopic was isidro cated and was performed. 03/26/2024 9:00 AM EST 03/26/2024 us Cortes Rowe MD LAB URINE ORDERABLES Final Re sult [facility] [address] [place] [address] documented in this encounter Visit Diagnoses Not on filedocumented in this encounter Care Teams Systems Software Manager Relationship Specialty Start Date End Date Juan Jose Ellington NP [facility] [place] [address] PCP - General 12/25/18 documented as of this encounter
--- NOTE | 2024-04-11 21:23 | PC.NURSE ---
late entry- assumed care of pt at 1900. pt resting in stretcher, no acute distress noted. vss. pt medicated per mar at this time. pt offers no complaints.
[2024-04-11 21:42] LABS: Troponin-I High Sensitivity 201.2 ng/L (<3.5-17.0)
--- NOTE | 2024-04-11 22:14 | PHA.MEDREC ---
Addendum entered by Taylor Concepcion RPh 04/11/24 22:25: reviewed by [facility]. Original Note: Pharmacy Consult ? Medication Reconciliation Pharmacy has completed the medication reconciliation. Spoke to patients daughter Tatyana at bedside to confirm med list. Daughter had a list of patient medications on her phone. Daughter confirmed Ofloxacin 0.3% eye drops are in both eyes and she is will be on day 3 of treatment tomorrow (put 1-2 drps into affected eye(s) every 2-4 h x 2 days, then 1-2 drps 4 times/day days 3-7 ophthalmic), Furosemide 20 is every Monday, Monday and Monday, last does was 04/10/24. patient had all her morning medications today.
--- NOTE | 2024-04-11 22:35 | P.HPHOSP_ITS ---
History of Present Illness Date of Service: 04/11/24 Chief Complaint: Shortness of breath A 78 years old lady with PMH of HFpE on lasix 20 mg MWF, mitral stenosis, CKD 4, chronic AFib, COPD not on home O2, HTN, HLD who presents with shortness of breath that has been ongoing for at least 3 weeks and worse the last several days. She is having cough with yellow/green phlgem production, no fever but having chills. She has been using inhalers more frequently without relief. Additionally, she bee feeling weak, exhausted and having hard time getting out of bed. Work up in ED: WBC 15.9, VBG reassuring, troponin I 249 repeat 201, BNP level 1333 (above baseline) , random glucose 237. Flu/RSV/covid negative. CXR bibasilar pneumonia, ECG Prolonged Qtc, no acute ischemic changes. Review of Systems 2 Review of Systems: Gen: no fever but chills Resp: + sob, + cough CV: no chest pain, no SORIANO, no leg edema GI: No n/v, no abd pain Neuro: No confusion Yes all other systems are reviewed and are negative [facility] Medical History Emphysema of lung Tardive dyskinesia Coarse tremors Hypersomnia Snoring SHARON (acute kidney injury) Mediastinal lymphadenopathy Atrial fibrillation Dyslipidemia Kidney disease Leukocytosis Necrotizing granulomatous inflammation of lung Bipolar 1 disorder Vitamin D deficiency COPD (chronic obstructive pulmonary disease) Sarcoidosis HTN (hypertension) [place] nephropathy Family History Child No Financial Resp No problems noted. Family/Other Substance use disorder Surgical History History of cardioversion History of bronchoscopy Social History Household Members: Family Household Members Other:: daughter lives downstairs Housing: House Are you a primary manager medicare marketing to a significant other at home: No Do you presently have visiting nurse or other home services: No Alcohol intake: never Patient Tobacco Use Status: Former Tobacco user Tobacco use type: Cigarette Years Smoked: 50 +/- Smoked in Last 30 Days: No e-Cigarette/Vaping Use: Never Used Second Hand Smoke Exposure: No Use of substances other than those prescribed or required for medical reasons: No Advance Directives: Yes Advance Directives on File: Yes Advance Directives Date on File: 04/26/21 Do you have a plan to hurt others: No Plan service: No Current occupational status: retired 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 Current occupational exposures/hazards: No Cognitive needs: No Hearing needs: No Vision needs: Yes Meds Allergies Allergy/AdvReac Type Severity Reaction Status Date / Time Sulfa (Sulfonamide Allergy Severe RASH, Verified 04/11/24 17:55 Antibiotics) Anaphylaxis [SULFA (SULFONAMIDE ANTIBIOTICS)] Active Medications: Current Medications Albuterol Sulfate (Albuterol Sulfate 90 Mcg 8 Gm Inhaler) 2 puff INHALE Q6H PRN PRN Reason: Wheezing Amiodarone HCl (Amiodarone Hcl 200 Mg Tablet) 100 mg PO DAILY [facility] Apixaban (Apixaban 5 Mg Tablet) 5 mg PO BID [place] Fluticasone/Umeclidinium/Vilanterol (Fluticasone/Umeclidinium/Vilanterol 100/62.5/25 Blst.W.Dev) 1 puff INHALE RDAILY [facility] Furosemide (Furosemide 20 Mg Tablet) 20 mg PO MoWeFr@0900 [place]; Protocol Hydroxyzine HCl (Hydroxyzine Hcl 10 Mg Tablet) 10 mg PO DAILY PRN PRN Reason: anxiety Lamotrigine (Lamotrigine 25 Mg Tablet) 50 mg PO BEDTIME [facility] Melatonin (Melatonin 3 Mg Tablet) 9 mg PO BEDTIME PRN PRN Reason: Insomnia Metoprolol Succinate (Metoprolol Succinate Er 50 Mg Tab.Er.24h) 50 mg PO DAILY [facility]; Protocol Non-Formulary Medication (Ofloxacin [Ocuflox]) 2 drop EYE-BOTH QID [facility] Olanzapine (Olanzapine 7.5 Mg Tablet) 7.5 mg PO BEDTIME [facility] Vitamin D (Cholecalciferol (Vitamin D3) 25 Mcg Tablet) 50 mcg PO DAILY [facility] Home Medications ?Medication ?Instructions ?Recorded ?Confirmed ?Last Taken ?Type albuterol sulfate 90 mcg/actuation 2 puff inhalation Q6H PRN Wheezing 09/23/20 04/11/24 06/25/21 History aerosol inhaler (Ventolin HFA) cholecalciferol (vitamin D3) 50 50 mcg PO DAILY 09/23/20 04/11/24 04/11/24 History mcg (2,000 unit) capsule lamotrigine 25 mg tablet 50 mg PO BEDTIME 09/23/20 04/11/24 04/11/24 History melatonin 10 mg tablet 10 mg PO BEDTIME 03/31/21 04/11/24 04/11/24 History cranberry 500 mg capsule 1,000 mg PO DAILY 06/16/22 04/11/24 04/11/24 History olanzapine 7.5 mg tablet 7.5 mg PO BEDTIME 10/12/23 04/11/24 04/11/24 History fluticasone fur. 100 mcg-umeclid 1 ea inhalation DAILY 04/11/24 04/11/24 04/11/24 History 62.5 mcg-vilant 25 mcg inhalat.powder (Trelegy Ellipta) furosemide 20 mg tablet 20 mg PO MOWEFR 04/11/24 04/11/24 04/10/24 History hydroxyzine HCl 10 mg tablet 10 mg PO DAILY PRN anxiety 04/11/24 04/11/24 Unknown History ofloxacin 0.3 % eye drops 1 - 2 drp ophthalmic (eye) QID 04/11/24 04/11/24 04/11/24 History Physical Exam 2 Vital Signs and Narrative: Vital Signs: Last Vital Signs Temp 98.3 F 04/11/24 18:50 Pulse 72 04/11/24 19:46 Resp 21 H 04/11/24 19:46 BP 120/45 L 04/11/24 18:50 Pulse Ox 96 04/11/24 18:50 O2 Del Method Nasal Cannula 04/11/24 18:50 O2 Flow Rate 3 04/11/24 18:50 BMI result Body Mass Index 34.0 Const: Other: General: AO X 3, no acute distress HEENT: bilateral redness of the eyes Resp: CTA bilateral CVS: S1,S2,RRR GI: +BS, NT, no distention Skin: No rash Neuro: motor grossly intact, CN 2 to 12 intact Psych: appropriate affect Results Labs 04/11/24 18:08 04/11/24 18:08 Labs: Laboratory Results - last 24 hr 04/11/24 04/11/24 18:08 19:04 MCV 92.0 MCH 30.5 MCHC 33.2 RDW 13.8 Plt Count 366 D MPV 10.4 Immature Gran % (Auto) 2.6 H Neut % (Auto) 85.2 H Lymph % (Auto) 5.3 L [place] % (Auto) 6.1 Eos % (Auto) 0.4 Baso % (Auto) 0.4 Lymph # (Auto) 0.8 L [place] # (Auto) 1.0 Eos # (Auto) 0.1 Baso # (Auto) 0.1 Abs Immat Gran (auto) 0.42 H Absolute Neuts (auto) 13.6 H Absolute Nucleated RBC 0.040 H Nucleated RBC % (auto) 0.3 H PT 23.1 H INR 2.0 H VBG pH 7.43 VBG pCO2 41 VBG pO2 56 VBG HCO3 27 H VBG O2 Saturation 83.0 VBG Base Excess 3.1 Anion Gap 18 Estim Creat Clear Calc 15.7 Estimated GFR 16 Random Glucose 237 H Lactic Acid 1.5 Calcium 10.4 H D Total Bilirubin 0.5 AST 50 H ALT 47 H Alkaline Phosphatase 102 B-Natriuretic Peptide 1333 H Total Protein 8.0 Albumin 3.8 Influenza Type A (PCR) NEGATIVE Influenza Type B (PCR) NEGATIVE RSV RNA Qual (PCR) NEGATIVE SARS-CoV-2 RNA (RT-PCR) NEGATIVE Assessment and Plan (1) Pneumonia: Status: Acute Plan A 78 years old lady with PMH of HFpE on lasix 20 mg MWF, mitral stenosis, CKD 4, chronic AFib, COPD not on home O2, HTN, HLD who presents with shortness of breath and found to have hypoxia, pnumonia, chf. Acute hyoxic respriatory failure due to pneumonia and chf Treat underlying Pneumonia and chf Pneumonia Ceftriaxone and Azithro started 2/20 O2 goal of 92% HFpEF exabaerbation IV Lasix 20 daily, monitor bpm CKD 4 with mild Sharon, likely related to cardiorenal syndrome Monitor while in diuretics Elevated troponin, likely type 2 AL from above, ecg no acute ischemic changes and trending apolinar Chronic afib continue metoprolo, continue eliquis. Hold amio d/t qt prolongation, discuss with cardiology Elevated LFTs, new hold statin, US of liver, hep profiel Qtc prolongation, likely multifactorial including amio, repeat ECG in morning, check mag, avoid qtc prolonging meds COPD, no acute exacerbtion, continue inhalers elevated blood sugar, no history of diabetes check A1C DVT prophylaxis: eliquis admission for at least 2 midnights for management of pneumonia, hypox, chf, Quality Stroke Does the patient have a stroke diagnosis?: No VTE Prior VTE?: No VTE Risk Level:: Medical - moderate - high VTE Device Contraindication: Treatment Not Indicated VTE Drug Contraindication: N/A - Med Ordered
[2024-04-11 22:53] VITALS: BP 128/64; PULSE 64; RESP 20; TEMP 36.9; O2SAT 99
[2024-04-11] MEDS: Apixaban 5 MG TABLET PO (22:56)
[2024-04-11] MEDS: OLANZapine 7.5 MG TABLET PO (22:56)
[2024-04-11] MEDS: Furosemide 20 MG/2 ML VIAL IVPUSH (22:56)
[2024-04-11] MEDS: lamoTRIgine 25 MG TABLET 50 MG PO (22:56)
--- NOTE | 2024-04-11 23:05 | PC.NURSE ---
pt medicated per mar, tolerated well with water. purewick placed at this time for comfort, pt unsteady on feet.
[2024-04-11 23:46] LABS: Magnesium 2.4 mg/dL (1.6-2.6)
[2024-04-11] MEDS: OFLOXACIN 0.3% 2 EACH EYE-BOTH (23:59)
[2024-04-12] VITALS (13 sets, daily range): BP systolic 115–144; BP diastolic 48–70; PULSE 57–86; RESP 14–23; TEMP 35.9–37; O2SAT 93–100; BMI 34.8
--- NOTE | 2024-04-12 | ECG_ITS ---
Test Reason : QTC Blood Pressure : */* mmHG Vent. Rate : 63 BPM Atrial Rate : 63 BPM P-R Int : 152 ms QRS Dur : 94 ms QT Int : 482 ms P-R-T Axes : 2 49 11 degrees QTcB Int : 494 ms Normal sinus rhythm T wave abnormality, consider anterior ischemia Prolonged QT Abnormal ECG When compared with ECG of 12-Apr-2024 05:48, No significant change was found Referred By: Jud Christiansen Electronically Signed By: MAITE MACHADO
[2024-04-12 03:02] LABS: Glucose, Whole Blood 111 mg/dL (60-115)
[2024-04-12 05:19] LABS: Alanine Aminotransferase 44 U/L (0-31); Albumin Level 3.6 g/dL (3.5-5.0); Alkaline Phosphatase 90 U/L (39-117); Aspartate Amino Transferase 39 U/L (5-31); Bilirubin Direct 0.2 mg/dL (0.0-0.5); Bilirubin Total 0.5 mg/dL (0.0-1.0); Total Protein 7.5 g/dL (6.5-8.0)
--- NOTE | 2024-04-12 06:00 | ECG_ITS ---
Test Reason : PROLONGED QTC Blood Pressure : */* mmHG Vent. Rate : 60 BPM Atrial Rate : 60 BPM P-R Int : 184 ms QRS Dur : 92 ms QT Int : 484 ms P-R-T Axes : 76 60 10 degrees QTcB Int : 484 ms Normal sinus rhythm T wave abnormality, consider anterior ischemia Prolonged QT Abnormal ECG When compared with ECG of 11-Apr-2024 18:02, No significant change was found Referred By: Jonathan Kramer Electronically Signed By: MAITE MACHADO
[2024-04-12 07:23] LABS: Estimated Average Glucose 105 mg/dL; Hemoglobin A1C 117.0378 umol/L; Hemoglobin A1c % 5.3 % (<6.0); Total Hemoglobin (HGBA1C) 3436.3992 umol/L
[2024-04-12 08:20] LABS: Anion Gap 18 (12-20); Blood Urea Nitrogen 63 mg/dL (9-16); Calcium 9.9 mg/dL (8.4-10.2); Carbon Dioxide 24 mmol/L (22-29); Chloride 104 mmol/L (96-108); Creatinine Clr Calc Pharmacy 15.9; Estimated Glomerular Filt Rate 16; Glucose Random 119 mg/dL (60-115); Potassium 3.4 mmol/L (3.3-5.1); Sodium 143 mmol/L (135-145)
[2024-04-12 08:34] LABS: HBS Num1 1.08 mIU/mL (0-7.99); HBc Num1 0.15 S/CO (0.00-0.79); HBsAGNum1 0.43 S/CO (0.00-0.99); Hepatitis A Antibody IgM 0.11 Index (0-0.79); Hepatitis B Core Antibody Nonreactive (Nonreactive); Hepatitis B Surface Antigen Negative (Negative); ~HepC Num1 0.06 S/CO (0.00-0.79); ~Hepatitis A Antibody IgM Nonreactive (Nonreactive); ~Hepatitis B Surface Antibody NONREACTIVE (Nonreactive); ~Hepatitis C Antibody Nonreactive (Nonreactive)
[2024-04-12] MEDS: Doxycycline Hyclate 100 MG in 0.9 % Sodium Chloride 250 ML 166.67 MG IV ×2 (08:39→20:37)
[2024-04-12] MEDS: Furosemide 20 MG/2 ML VIAL IVPUSH (08:40)
[2024-04-12] MEDS: cefTRIAXone sodium 1 GM VIAL IVPUSH (08:40)
[2024-04-12] MEDS: Cholecalciferol (Vitamin D3) 25 MCG TABLET 50 MCG PO (08:40)
[2024-04-12] MEDS: Apixaban 5 MG TABLET PO ×2 (08:41→20:37)
[2024-04-12] MEDS: Metoprolol Succinate ER 50 MG TAB.ER.24H PO (08:41)
[2024-04-12] MEDS: OFLOXACIN 0.3% 2 EACH EYE-BOTH ×3 (08:42→20:40)
[2024-04-12] MEDS: Fluticasone/Umeclidinium/Vilanterol 100/62.5/25 BLST.W.DEV 1 PUFF INHALE (08:51)
--- NOTE | 2024-04-12 10:07 | P.CONCA_ITS ---
History of Present Illness History of Present Illness Date of Service: 04/12/24 Chief complaint: acute hypoxia, resp failure, pneumonia, prolonged Narrative: This is a cardiology consultation regarding elevated troponins. Patient is generally seen by Dr. Castañeda. Last seen in 2023. According to that note, patient has a history of congestive heart failure with diastolic dysfunction. She also has paroxysmal atrial fibrillation. Calcific mitral valve disease with moderate mitral regurgitation/stenosis. Current admission is for shortness of breath. It seems that for the last few weeks, she has been having increasing shortness of breath. She is also having LAD/green expectoration. No fevers or chills. Then seen in the ER where she was thought to have possible pneumonia. In this context, troponins were checked and they were also on the higher side. Hence we are consulted. Patient does not have any ischaemic/anginal sounding chest pains. Main complaint is cough/shortness of breath. No significant leg swelling. Review of Systems 2 Review of Systems: Yes all other systems are reviewed and are negative Constitutional: Constitutional: Reports as per HPI and Reports no additional constitutional complaints Eyes: Eyes: Reports as per HPI and Denies no additional eye complaints ENT: Denies system reviewed and no additional complaints, except as documented and Reports as per HPI Cardiovascular: Cardiovascular: Reports as per HPI, Reports no additional cardiovascular complaints, Denies acrocyanosis, Denies cool extremities, Denies chest pain, Denies leg edema, Denies lightheadedness, Denies palpitations and Reports dyspnea Respiratory: Respiratory: Reports as per HPI, Denies no additional respiratory complaints, Reports cough and Reports dyspnea Gastrointestinal: Gastrointestinal: Reports as per HPI and Denies no additional gastrointestinal complaints Genitourinary: Genitourinary: Reports as per HPI Musculoskeletal: Musculoskeletal: Reports no additional musculoskeletal complaints and Reports as per HPI Integumentary/Breasts: Skin/Breast: Reports system reviewed and no additional complaints, except as docu Neurologic: Reports system reviewed and no additional complaints, except as documented and Reports as per HPI Psychiatric: Psychiatric: Reports no additional psychiatric complaints and Reports as per HPI Endocrine: Endocrine: Reports no additional endocrine complaints, Reports as per HPI and Denies palpitations Hematologic/Lymphatic: Hematologic/Lymphatic: Reports no additional hematologic/lymphatic complaints and Reports as per HPI Allergic/Immunologic: Allergic/Immunologic: Reports no additional allergic/immunologic complaints and Reports as per HPI [facility] Past Medical History Medical History Emphysema of lung Tardive dyskinesia Coarse tremors Hypersomnia Snoring SHARON (acute kidney injury) Mediastinal lymphadenopathy Atrial fibrillation Dyslipidemia Kidney disease Leukocytosis Necrotizing granulomatous inflammation of lung Bipolar 1 disorder Vitamin D deficiency COPD (chronic obstructive pulmonary disease) Sarcoidosis HTN (hypertension) [place] nephropathy Family History Family History Child No Financial Resp No problems noted. Family/Other Substance use disorder Surgical History Surgical History History of cardioversion History of bronchoscopy Social History Social History Household Members: Family Household Members Other:: daughter lives downstairs Housing: House Are you a primary critical care clinical nurse specialist to a significant other at home: No Do you presently have visiting nurse or other home services: No Alcohol intake: never Patient Tobacco Use Status: Former Tobacco user Tobacco use type: Cigarette Years Smoked: 50 +/- Smoked in Last 30 Days: No e-Cigarette/Vaping Use: Never Used Second Hand Smoke Exposure: No Use of substances other than those prescribed or required for medical reasons: No Advance Directives: Yes Advance Directives on File: Yes Advance Directives Date on File: 04/26/21 Do you have a plan to hurt others: No Plan Nutrition Risks: No Nutritional Risk service: No Current occupational status: retired 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 Current occupational exposures/hazards: No Cognitive needs: No Hearing needs: No Vision needs: Yes Meds Allergies Allergy/AdvReac Type Severity Reaction Status Date / Time Sulfa (Sulfonamide Allergy Severe RASH, Verified 04/11/24 17:55 Antibiotics) Anaphylaxis [SULFA (SULFONAMIDE ANTIBIOTICS)] Active Medications: Current Medications Acetaminophen (Acetaminophen 325 Mg Tablet) 650 mg PO Q6H PRN PRN Reason: Pain, Mild 1-3,fever,headache Al Hydroxide/Mg Hydroxide (Magnesium Hydrox/Alum Hydrox 30 Ml Oral.Susp) 30 ml PO Q4H PRN PRN Reason: Heartburn Albuterol Sulfate (Albuterol Sulfate 90 Mcg 8 Gm Inhaler) 2 puff INHALE Q6H PRN PRN Reason: Wheezing Apixaban (Apixaban 5 Mg Tablet) 5 mg PO BID [facility] Last Admin: 04/12/24 08:41 Dose: 5 mg Calcium Carbonate (Calcium Carbonate 750 Mg Tab.Chew) 750 mg PO Q4H PRN PRN Reason: Heartburn Ceftriaxone Sodium (Ceftriaxone Sodium 1 Gm Vial) 1 gm IVPUSH Q24H [facility] Last Admin: 04/12/24 08:40 Dose: 1 gm Fluticasone/Umeclidinium/Vilanterol (Fluticasone/Umeclidinium/Vilanterol 100/62.5/25 Blst.W.Dev) 1 puff INHALE RDAILY [facility] Last Admin: 04/12/24 08:51 Dose: 1 puff Furosemide (Furosemide 20 Mg/2 Ml Vial) 20 mg IVPUSH DAILY [facility]; Protocol Last Admin: 04/12/24 08:40 Dose: 20 mg Doxycycline Hyclate 100 mg/ (Sodium Chloride) 250 mls @ 166.67 mls/hr IV Q12H [facility] Last Admin: 04/12/24 08:39 Dose: 166.67 mls/hr Lamotrigine (Lamotrigine 25 Mg Tablet) 50 mg PO BEDTIME [facility] Last Admin: 04/11/24 22:56 Dose: 50 mg Magnesium Hydroxide (Milk Of Magnesia 30 Ml Oral.Susp) 30 ml PO DAILY PRN PRN Reason: Constipation Melatonin (Melatonin 3 Mg Tablet) 9 mg PO BEDTIME PRN PRN Reason: Insomnia Melatonin (Melatonin 3 Mg Tablet) 6 mg PO BEDTIME PRN PRN Reason: Insomnia Metoprolol Succinate (Metoprolol Succinate Er 50 Mg Tab.Er.24h) 50 mg PO DAILY [facility]; Protocol Last Admin: 04/12/24 08:41 Dose: 50 mg Pt Own (Ofloxacin [ Ocuflox] 0.3 % Drops ) 2 drop EYE-BOTH QID [facility] Last Admin: 04/12/24 08:42 Dose: 2 drop Olanzapine (Olanzapine 7.5 Mg Tablet) 7.5 mg PO BEDTIME [facility] Last Admin: 04/11/24 22:56 Dose: 7.5 mg Sodium Chloride (0.9 % Sodium Chloride Flush 3 Ml Syringe) 3 ml IVFLUSH QSHIFT [facility] Last Admin: 04/12/24 07:06 Dose: Not Given Vitamin D (Cholecalciferol (Vitamin D3) 25 Mcg Tablet) 50 mcg PO DAILY [facility] Last Admin: 04/12/24 08:40 Dose: 50 mcg Home Medications ?Medication ?Instructions ?Recorded ?Confirmed ?Last Taken ?Type albuterol sulfate 90 mcg/actuation 2 puff inhalation Q6H PRN Wheezing 09/23/20 04/11/24 06/25/21 History aerosol inhaler (Ventolin HFA) cholecalciferol (vitamin D3) 50 50 mcg PO DAILY 09/23/20 04/11/24 04/11/24 History mcg (2,000 unit) capsule lamotrigine 25 mg tablet 50 mg PO BEDTIME 09/23/20 04/11/24 04/11/24 History melatonin 10 mg tablet 10 mg PO BEDTIME 03/31/21 04/11/24 04/11/24 History cranberry 500 mg capsule 1,000 mg PO DAILY 06/16/22 04/11/24 04/11/24 History olanzapine 7.5 mg tablet 7.5 mg PO BEDTIME 10/12/23 04/11/24 04/11/24 History fluticasone fur. 100 mcg-umeclid 1 ea inhalation DAILY 04/11/24 04/11/24 04/11/24 History 62.5 mcg-vilant 25 mcg inhalat.powder (Trelegy Ellipta) furosemide 20 mg tablet 20 mg PO MOWEFR 04/11/24 04/11/24 04/10/24 History hydroxyzine HCl 10 mg tablet 10 mg PO DAILY PRN anxiety 04/11/24 04/11/24 Unknown History ofloxacin 0.3 % eye drops 1 - 2 drp ophthalmic (eye) QID 04/11/24 04/11/24 04/11/24 History Physical Exam 2 Vital Signs: Vital Signs: Last Vital Signs Temp 98.1 F 04/12/24 07:15 Pulse 63 04/12/24 08:54 Resp 21 H 04/12/24 08:54 BP 144/60 H 04/12/24 08:41 Pulse Ox 93 04/12/24 08:22 O2 Del Method Room Air 04/12/24 08:22 O2 Flow Rate 2 04/12/24 08:22 BMI result Body Mass Index 34.0 Const: General: comfortable and no acute distress O rientation/consciousness: patient oriented x3 HEENT: Other: Unremarkable Head: Yes normal to inspection Neck: Neck: Yes normal visual inspection Chest: Chest palpation & inspection: normal inspection of the chest Resp: Auscultation: wheezes and diminished lung sounds Cardio: Palpation: normal PMI Heart sounds: S1 normal heart sound present, S2 normal heart sound present, no gallops, no murmurs and no rubs GI: Palpation (GI): Soft to palpation Back/Spine/Pelvis: Other: unremarkable Skin: General skin exam: no rashes or lesions noted Neuro: General: patient oriented x3 Extrem: General: Yes normal to inspection Psych: Mental Status: mental status grossly normal Objective Labs and Meds 04/11/24 18:08 04/12/24 04:50 Lab results: Laboratory Results - last 24 hr 04/11/24 04/11/24 04/11/24 18:08 19:04 21:09 WBC 15.9 H RBC 4.26 Hgb 13.0 Hct 39.2 MCV 92.0 MCH 30.5 MCHC 33.2 RDW 13.8 Plt Count 366 D MPV 10.4 Immature Gran % (Auto) 2.6 H Neut % (Auto) 85.2 H Lymph % (Auto) 5.3 L [place] % (Auto) 6.1 Eos % (Auto) 0.4 Baso % (Auto) 0.4 Lymph # (Auto) 0.8 L [place] # (Auto) 1.0 Eos # (Auto) 0.1 Baso # (Auto) 0.1 Abs Immat Gran (auto) 0.42 H Absolute Neuts (auto) 13.6 H Absolute Nucleated RBC 0.040 H Nucleated RBC % (auto) 0.3 H PT 23.1 H INR 2.0 H VBG pH 7.43 VBG pCO2 41 VBG pO2 56 VBG HCO3 27 H VBG O2 Saturation 83.0 VBG Base Excess 3.1 Sodium 141 Potassium 3.5 Chloride 103 Carbon Dioxide 24 Anion Gap 18 BUN 63 H Creatinine 2.84 H Estim Creat Clear Calc 15.7 Estimated GFR 16 POC Glucose Random Glucose 237 H Estimat Average Glucose 105 Hemoglobin A1c % 5.3 Lactic Acid 1.5 Calcium 10.4 H D Magnesium 2.4 Total Bilirubin 0.5 Direct Bilirubin AST 50 H ALT 47 H Alkaline Phosphatase 102 Troponin I High Sens 249.6 H* 201.2 H* B-Natriuretic Peptide 1333 H Total Protein 8.0 Albumin 3.8 Hepatitis A IgM Ab Hep Bs Antigen Hep Bs Antibody Hep B Core Total Ab Hepatitis C Ab (EIA) Influenza Type A (PCR) NEGATIVE Influenza Type B (PCR) NEGATIVE RSV RNA Qual (PCR) NEGATIVE SARS-CoV-2 RNA (RT-PCR) NEGATIVE 04/12/24 04/12/24 02:58 04:50 WBC RBC Hgb Hct MCV MCH MCHC RDW Plt Count MPV Immature Gran % (Auto) Neut % (Auto) Lymph % (Auto) [place] % (Auto) Eos % (Auto) Baso % (Auto) Lymph # (Auto) [place] # (Auto) Eos # (Auto) Baso # (Auto) Abs Immat Gran (auto) Absolute Neuts (auto) Absolute Nucleated RBC Nucleated RBC % (auto) PT INR VBG pH VBG pCO2 VBG pO2 VBG HCO3 VBG O2 Saturation VBG Base Excess Sodium 143 Potassium 3.4 Chloride 104 Carbon Dioxide 24 Anion Gap 18 BUN 63 H Creatinine 2.81 H Estim Creat Clear Calc 15.9 Estimated GFR 16 POC Glucose 111 Random Glucose 119 H Estimat Average Glucose Hemoglobin A1c % Lactic Acid Calcium 9.9 Magnesium Total Bilirubin 0.5 Direct Bilirubin 0.2 AST 39 H ALT 44 H Alkaline Phosphatase 90 Troponin I High Sens B-Natriuretic Peptide Total Protein 7.5 Albumin 3.6 Hepatitis A IgM Ab Nonreactive Hep Bs Antigen Negative Hep Bs Antibody NONREACTIVE Hep B Core Total Ab Nonreactive Hepatitis C Ab (EIA) Nonreactive Influenza Type A (PCR) Influenza Type B (PCR) RSV RNA Qual (PCR) SARS-CoV-2 RNA (RT-PCR) ECG Interpretation: EKG shows underlying sinus rhythm, 72/Min; T inversions in anterior leads and suggestion of QT prolongation with corrected QT of 515 milliseconds. Assessment and Plan (1) Acute hypoxemic respiratory failure: Status: Acute (2) Paroxysmal atrial fibrillation: Status: Acute (3) Acute on chronic diastolic (congestive) heart failure: Status: Acute (4) Elevated troponin: Status: Acute (5) Acute kidney injury superimposed on CKD: Status: Acute Plan Pertinent data reviewed. Elevated kidney function compared to prior. High sensitivity troponin in the 200s. Cardiac BNP 13 33. Higher than before. Last echocardiogram from September with LVEF of 67%. Moderate diastolic dysfunction. Severe mitral annular calcification with moderate regurgitation/at least moderate stenosis. Moderate to severe pulmonary hypertension. Chest x-ray reported to have bibasilar pneumonia. EKG as discussed above. Overall, possibly some combination of pneumonia/congestive heart failure. More so towards pneumonia. Cautious with diuretics at the kidney function is abnormal. She is also on empiric antibiotics. With regard to elevated troponins, suspect demand related rise. Ideally, we will need ischemic workup but with her kidney issues, we will need to decide. We will get an echocardiogram today and follow up with you. Otherwise, QT slightly prolonged but still okay to continue amiodarone as there is high chance of going back into atrial fibrillation. Continue with anticoagulation. We will follow up with you. Procedures Date of Service Date of Service: 04/12/24
--- NOTE | 2024-04-12 11:23 | MHC.CM.PN ---
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 Pt. was vague in her answers, her dtr was present and answered some questions. HCP on file and confirmed: Herminia (her dtr.) PCP confirmed: Juan Jose Ellington. For DME, she has a cane and a walker. Family can transport home at DC. CM to follow for DC needs.
--- NOTE | 2024-04-12 11:31 | HO.PM.IMPN ---
Subjective Subjective Date of Service: 04/12/24 Interval History: seen and examined this morning follow up for pneumonia pt reports cough with sob Review of Systems Review of Systems: Yes all other systems are reviewed and are negative Constitutional Constitutional: Denies chills and Denies fever(s) Cardiovascular Cardiovascular: Denies chest pain, Denies palpitations and Reports dyspnea Respiratory Respiratory: Reports cough and Reports dyspnea Endocrine Endocrine: Denies palpitations Physical Exam Vital Signs: Vital Signs: Last Vital Signs Temp 98.1 F 04/12/24 07:15 Pulse 63 04/12/24 08:54 Resp 21 H 04/12/24 08:54 BP 144/60 H 04/12/24 08:41 Pulse Ox 93 04/12/24 08:22 O2 Del Method Room Air 04/12/24 08:22 O2 Flow Rate 2 04/12/24 08:22 BMI result Body Mass Index 34.0 Const: General: alert and awake Nutritional Appearance: overweight Orientation/consciousness: patient oriented x3 Resp: Other: mild tachypnea; b/l wheeze Cardio: Rate: regular rate GI: Inspection: No distended Palpation (GI): Soft to palpation and nontender Neuro: General: patient oriented x3, moves all extremities and CN's II-XI intact bilaterally Extrem: General: Yes no pedal edema Objective Data Active Medications Acetaminophen (Acetaminophen 325 Mg Tablet) 650 mg PO Q6H PRN PRN Reason: Pain, Mild 1-3,fever,headache Al Hydroxide/Mg Hydroxide (Magnesium Hydrox/Alum Hydrox 30 Ml Oral.Susp) 30 ml PO Q4H PRN PRN Reason: Heartburn Albuterol Sulfate (Albuterol Sulfate 90 Mcg 8 Gm Inhaler) 2 puff INHALE Q6H PRN PRN Reason: Wheezing Apixaban (Apixaban 5 Mg Tablet) 5 mg PO BID [facility] Last Admin: 04/12/24 08:41 Dose: 5 mg Documented By: JUDIT Calcium Carbonate (Calcium Carbonate 750 Mg Tab.Chew) 750 mg PO Q4H PRN PRN Reason: Heartburn Ceftriaxone Sodium (Ceftriaxone Sodium 1 Gm Vial) 1 gm IVPUSH Q24H [facility] Last Admin: 04/12/24 08:40 Dose: 1 gm Documented By: JUDIT Fluticasone/Umeclidinium/Vilanterol (Fluticasone/Umeclidinium/Vilanterol 100/62.5/25 Blst.W.Dev) 1 puff INHALE RDAILY [facility] Last Admin: 04/12/24 08:51 Dose: 1 puff Documented By: YRIS Furosemide (Furosemide 20 Mg/2 Ml Vial) 20 mg IVPUSH DAILY [facility]; Protocol Last Admin: 04/12/24 08:40 Dose: 20 mg Documented By: JUDIT Doxycycline Hyclate 100 mg/ (Sodium Chloride) 250 mls @ 166.67 mls/hr IV Q12H [facility] Last Infusion: 04/12/24 10:28 Dose: Infused Documented By: JUDIT Lamotrigine (Lamotrigine 25 Mg Tablet) 50 mg PO BEDTIME [facility] Last Admin: 04/11/24 22:56 Dose: 50 mg Documented By: ISIAH Magnesium Hydroxide (Milk Of Magnesia 30 Ml Oral.Susp) 30 ml PO DAILY PRN PRN Reason: Constipation Melatonin (Melatonin 3 Mg Tablet) 9 mg PO BEDTIME PRN PRN Reason: Insomnia Melatonin (Melatonin 3 Mg Tablet) 6 mg PO BEDTIME PRN PRN Reason: Insomnia Metoprolol Succinate (Metoprolol Succinate Er 50 Mg Tab.Er.24h) 50 mg PO DAILY [facility]; Protocol Last Admin: 04/12/24 08:41 Dose: 50 mg Documented By: JUDIT Pt Own (Ofloxacin [ Ocuflox] 0.3 % Drops ) 2 drop EYE-BOTH QID [facility] Last Admin: 04/12/24 08:42 Dose: 2 drop Documented By: JUDIT Olanzapine (Olanzapine 7.5 Mg Tablet) 7.5 mg PO BEDTIME [facility] Last Admin: 04/11/24 22:56 Dose: 7.5 mg Documented By: ISIAH Sodium Chloride (0.9 % Sodium Chloride Flush 3 Ml Syringe) 3 ml IVFLUSH QSHIFT [facility] Last Admin: 04/12/24 07:06 Dose: Not Given Documented By: JUDIT Non-Admin Reason: Previously Administered Vitamin D (Cholecalciferol (Vitamin D3) 25 Mcg Tablet) 50 mcg PO DAILY [facility] Last Admin: 04/12/24 08:40 Dose: 50 mcg Documented By: JUDIT Labs 04/11/24 18:08 04/12/24 04:50 Labs: Laboratory Results - last 24 hr 04/11/24 04/11/24 04/12/24 18:08 19:04 02:58 MCV 92.0 MCH 30.5 MCHC 33.2 RDW 13.8 Plt Count 366 D MPV 10.4 Immature Gran % (Auto) 2.6 H Neut % (Auto) 85.2 H Lymph % (Auto) 5.3 L [place] % (Auto) 6.1 Eos % (Auto) 0.4 Baso % (Auto) 0.4 Lymph # (Auto) 0.8 L [place] # (Auto) 1.0 Eos # (Auto) 0.1 Baso # (Auto) 0.1 Abs Immat Gran (auto) 0.42 H Absolute Neuts (auto) 13.6 H Absolute Nucleated RBC 0.040 H Nucleated RBC % (auto) 0.3 H PT 23.1 H INR 2.0 H VBG pH 7.43 VBG pCO2 41 VBG pO2 56 VBG HCO3 27 H VBG O2 Saturation 83.0 VBG Base Excess 3.1 Anion Gap 18 Estim Creat Clear Calc 15.7 Estimated GFR 16 POC Glucose 111 Random Glucose 237 H Estimat Average Glucose 105 Hemoglobin A1c % 5.3 Lactic Acid 1.5 Calcium 10.4 H D Magnesium 2.4 Total Bilirubin 0.5 Direct Bilirubin AST 50 H ALT 47 H Alkaline Phosphatase 102 B-Natriuretic Peptide 1333 H Total Protein 8.0 Albumin 3.8 Hepatitis A IgM Ab Hep Bs Antigen Hep Bs Antibody Hep B Core Total Ab Hepatitis C Ab (EIA) Influenza Type A (PCR) NEGATIVE Influenza Type B (PCR) NEGATIVE RSV RNA Qual (PCR) NEGATIVE SARS-CoV-2 RNA (RT-PCR) NEGATIVE 04/12/24 04:50 MCV MCH MCHC RDW Plt Count MPV Immature Gran % (Auto) Neut % (Auto) Lymph % (Auto) [place] % (Auto) Eos % (Auto) Baso % (Auto) Lymph # (Auto) [place] # (Auto) Eos # (Auto) Baso # (Auto) Abs Immat Gran (auto) Absolute Neuts (auto) Absolute Nucleated RBC Nucleated RBC % (auto) PT INR VBG pH VBG pCO2 VBG pO2 VBG HCO3 VBG O2 Saturation VBG Base Excess Anion Gap 18 Estim Creat Clear Calc 15.9 Estimated GFR 16 POC Glucose Random Glucose 119 H Estimat Average Glucose Hemoglobin A1c % Lactic Acid Calcium 9.9 Magnesium Total Bilirubin 0.5 Direct Bilirubin 0.2 AST 39 H ALT 44 H Alkaline Phosphatase 90 B-Natriuretic Peptide Total Protein 7.5 Albumin 3.6 Hepatitis A IgM Ab Nonreactive Hep Bs Antigen Negative Hep Bs Antibody NONREACTIVE Hep B Core Total Ab Nonreactive Hepatitis C Ab (EIA) Nonreactive Influenza Type A (PCR) Influenza Type B (PCR) RSV RNA Qual (PCR) SARS-CoV-2 RNA (RT-PCR) Assessment and Plan (1) Acute kidney injury superimposed on CKD: Status: Acute (2) Elevated troponin: Status: Acute (3) Pneumonia: Status: Acute Plan This is a 78 years old lady with PMH of HFpE on lasix 20 mg MWF, mitral stenosis, CKD 4, chronic AFib, COPD not on home O2, HTN, HLD who presents with shortness of breath and found to have hypoxia, pnumonia, chf. Acute hyoxic respiratory failure multifactorial due to pneumonia and possible component of chf and copd exacerbation currently requiring 2L NC, not on baseline at home sepsis due to bibasilar pneumonia met criteria with leukocytosis and tachypnea, no severe features, lactic wnl. will continue IV Ceftriaxone and start doxycycline rather then azithromycin given prolonged qt O2 goal of 92% Follow results of blood cultures HFpEF with possible mild exacerbation Received 1 dose of IV Lasix in the ED, additional dose of IV Lasix this morning BNP significantly elevated will hold further diuresis for now given elevated renal function Seen by cardiology Follow ins and outs COPD exacerbation start steroids and scheduled breathing treatments CKD 4 with mild Sharon, likely related to cardiorenal syndrome nephrology consult pending follow renal function closely Elevated troponin, likely type 2 MT from above, ekg no acute ischemic changes and trending down seen by cardiology -ideally would need ischemic workup but due to underlying CKD may be difficult, TBD Chronic afib continue metoprolol, continue eliquis d/w cardiology ok to resume amio repeat EKG on monday Elevated LFTs, new hold statin US of liver unremarkable hep profile negative ?due to CHF trending down Qtc prolongation likely multifactorial including amio mag ok d/w cardiology - ok to resume amio as above; will repeat ekg monday pink eye diagnosed as outpatient resume home eye drops elevated blood sugar, no history of diabetes A1C 5.3 morbid obesity BMI 34.0 weight loss encouraged DVT prophylaxis: nasirquis Patient requires ongoing inpatient stay for management of pneumonia, CHF, SHARON requiring specialist evaluation Quality Stroke Does the patient have a stroke diagnosis?: No VTE Prior VTE?: No VTE Risk Level:: Medical - moderate - high VTE Device Contraindication: Treatment Not Indicated VTE Drug Contraindication: N/A - Med Ordered
[2024-04-12] MEDS: Amiodarone HCL 200 MG TABLET 100 MG PO (11:50)
[2024-04-12] MEDS: methylPREDNISolone Sod Succ 40 MG/ML VIAL IVPUSH (13:47)
[2024-04-12] MEDS: Albuterol/Iprat 2.5/0.5MG 3 ML AMPUL.NEB INHALE ×2 (14:25→20:00)
--- NOTE | 2024-04-12 19:58 | PM.CNNEP ---
History of Present Illness Reason for Consult Consult date: 04/12/24 Reason for consult: SHARON Chief Complaint Chief complaint: acute hypoxia, resp failure, pneumonia, prolonged History of Present Illness Narrative: 78 years old lady with HFpE , mitral stenosis, CKD 4, HTN who presented to hospital with shortness of breath that has been ongoing for at least 3 weeks which has been getting worse for the last several days. She is having cough with yellow/green phlgem production, no fever but having chills. She has been using inhalers more frequently without relief. Additionally, she bee feeling weak, exhausted and having hard time getting out of bed. Work up in ED: WBC 15.9, VBG reassuring, troponin I 249 repeat 201, BNP level 1333 (above baseline) , random glucose 237. Flu/RSV/covid negative. CXR bibasilar pneumonia, ECG Prolonged Qtc, no acute ischemic changes. Her current serum creatinine is 2.81. She has been admitted for further management. Nephrology has been consulted to assist in her clinical care during her current hospital stay Review of Systems Review of Systems Yes all other systems are reviewed and are negative PMFSH Past Medical History Medical History Emphysema of lung Tardive dyskinesia Coarse tremors Hypersomnia Snoring SHARON (acute kidney injury) Mediastinal lymphadenopathy Atrial fibrillation Dyslipidemia Kidney disease Leukocytosis Necrotizing granulomatous inflammation of lung Bipolar 1 disorder Vitamin D deficiency COPD (chronic obstructive pulmonary disease) Sarcoidosis HTN (hypertension) Melfa nephropathy Family History Family History Child No Financial Resp No problems noted. Family/Other Substance use disorder Surgical History Surgical History History of cardioversion History of bronchoscopy Social History Social History Household Members: Family Household Members Other:: 3 Housing: House Are you a primary career representative to a significant other at home: No Do you presently have visiting nurse or other home services: Yes Alcohol intake: never Patient Tobacco Use Status: Former Tobacco user Tobacco use type: Cigarette Years Smoked: 50 +/- e-Cigarette/Vaping Use: Never Used Second Hand Smoke Exposure: No Advance Directives Date on File: 04/26/21 service: No Current occupational status: retired 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 Current occupational exposures/hazards: No Cognitive needs: No Hearing needs: No Vision needs: Yes Meds Allergies Allergy/AdvReac Type Severity Reaction Status Date / Time Sulfa (Sulfonamide Allergy Severe RASH, Verified 04/11/24 17:55 Antibiotics) Anaphylaxis [SULFA (SULFONAMIDE ANTIBIOTICS)] Active Medications: Current Medications Acetaminophen (Acetaminophen 325 Mg Tablet) 650 mg PO Q6H PRN PRN Reason: Pain, Mild 1-3,fever,headache Al Hydroxide/Mg Hydroxide (Magnesium Hydrox/Alum Hydrox 30 Ml Oral.Susp) 30 ml PO Q4H PRN PRN Reason: Heartburn Albuterol Sulfate (Albuterol Sulfate 90 Mcg 8 Gm Inhaler) 2 puff INHALE Q6H PRN PRN Reason: Wheezing Albuterol/Ipratropium (Albuterol/Iprat 2.5/0.5mg 3 Ml Ampul.Neb) 3 ml INHALE RQ6H WHILE AWAKE [facility] Last Admin: 04/12/24 14:25 Dose: 3 ml Amiodarone HCl (Amiodarone Hcl 200 Mg Tablet) 100 mg PO DAILY [facility] Last Admin: 04/12/24 11:50 Dose: 100 mg Apixaban (Apixaban 5 Mg Tablet) 5 mg PO BID [facility] Last Admin: 04/12/24 08:41 Dose: 5 mg Calcium Carbonate (Calcium Carbonate 750 Mg Tab.Chew) 750 mg PO Q4H PRN PRN Reason: Heartburn Ceftriaxone Sodium (Ceftriaxone Sodium 1 Gm Vial) 1 gm IVPUSH Q24H [facility] Last Admin: 04/12/24 08:40 Dose: 1 gm Fluticasone/Umeclidinium/Vilanterol (Fluticasone/Umeclidinium/Vilanterol 100/62.5/25 Blst.W.Dev) 1 puff INHALE RDAILY [facility] Last Admin: 04/12/24 08:51 Dose: 1 puff Guaifenesin/Dextromethorphan (Guaifenesin Dm 100/10/5 Ml 5 Ml Syrup) 5 ml PO Q4H PRN PRN Reason: Cough Doxycycline Hyclate 100 mg/ (Sodium Chloride) 250 mls @ 166.67 mls/hr IV Q12H [facility] Last Infusion: 04/12/24 10:28 Dose: Infused Lamotrigine (Lamotrigine 25 Mg Tablet) 50 mg PO BEDTIME [facility] Last Admin: 04/11/24 22:56 Dose: 50 mg Magnesium Hydroxide (Milk Of Magnesia 30 Ml Oral.Susp) 30 ml PO DAILY PRN PRN Reason: Constipation Melatonin (Melatonin 3 Mg Tablet) 9 mg PO BEDTIME PRN PRN Reason: Insomnia Melatonin (Melatonin 3 Mg Tablet) 6 mg PO BEDTIME PRN PRN Reason: Insomnia Methylprednisolone Sodium Succinate (Methylprednisolone Sod Succ 40 Mg/Ml Vial) 40 mg IVPUSH Q12H [facility] Last Admin: 04/12/24 13:47 Dose: 40 mg Metoprolol Succinate (Metoprolol Succinate Er 50 Mg Tab.Er.24h) 50 mg PO DAILY [facility]; Protocol Last Admin: 04/12/24 08:41 Dose: 50 mg Pt Own (Ofloxacin [ Ocuflox] 0.3 % Drops ) 2 drop EYE-BOTH QID [facility] Last Admin: 04/12/24 17:38 Dose: Not Given Non-Formulary Medication (Ofloxacin) 1 drop EYE-BOTH QID [facility] Olanzapine (Olanzapine 7.5 Mg Tablet) 7.5 mg PO BEDTIME [facility] Last Admin: 04/11/24 22:56 Dose: 7.5 mg Sodium Chloride (0.9 % Sodium Chloride Flush 3 Ml Syringe) 3 ml IVFLUSH QSHIFT [facility] Last Admin: 04/12/24 15:26 Dose: Not Given Vitamin D (Cholecalciferol (Vitamin D3) 25 Mcg Tablet) 50 mcg PO DAILY [facility] Last Admin: 04/12/24 08:40 Dose: 50 mcg Home Medications ?Medication ?Instructions ?Recorded ?Confirmed ?Last Taken ?Type albuterol sulfate 90 mcg/actuation 2 puff inhalation Q6H PRN Wheezing 09/23/20 04/11/24 06/25/21 History aerosol inhaler (Ventolin HFA) cholecalciferol (vitamin D3) 50 50 mcg PO DAILY 09/23/20 04/11/24 04/11/24 History mcg (2,000 unit) capsule lamotrigine 25 mg tablet 50 mg PO BEDTIME 09/23/20 04/11/24 04/11/24 History melatonin 10 mg tablet 10 mg PO BEDTIME 03/31/21 04/11/24 04/11/24 History cranberry 500 mg capsule 1,000 mg PO DAILY 06/16/22 04/11/24 04/11/24 History olanzapine 7.5 mg tablet 7.5 mg PO BEDTIME 10/12/23 04/11/24 04/11/24 History fluticasone fur. 100 mcg-umeclid 1 ea inhalation DAILY 04/11/24 04/11/24 04/11/24 History 62.5 mcg-vilant 25 mcg inhalat.powder (Trelegy Ellipta) furosemide 20 mg tablet 20 mg PO MOWEFR 04/11/24 04/11/24 04/10/24 History hydroxyzine HCl 10 mg tablet 10 mg PO DAILY PRN anxiety 04/11/24 04/11/24 Unknown History ofloxacin 0.3 % eye drops 1 - 2 drp ophthalmic (eye) QID 04/11/24 04/11/24 04/11/24 History Physical Exam Vital Signs: Last Vital Signs Temp 97.5 F 04/12/24 18:00 Pulse 69 04/12/24 18:00 Resp 14 04/12/24 18:00 BP 133/58 L 04/12/24 18:00 Pulse Ox 94 04/12/24 18:00 O2 Del Method Nasal Cannula 04/12/24 18:00 O2 Flow Rate 2 04/12/24 18:00 BMI result Body Mass Index 34.8 Const General: no acute distress Orientation/consciousness: patient oriented x3 Eyes EOM: EOMs intact bilaterally Neck Neck: Yes supple Resp Auscultation: diminished lung sounds Cardio Rate: regular rate GI Palpation (GI): Soft to palpation Skin General skin exam: no rashes or lesions noted Neuro General: patient oriented x3 Results Lab Results 04/11/24 18:08 04/12/24 04:50 Lab results: Chemistry 04/11/24 04/12/24 18:08 04:50 Sodium 141 143 Potassium 3.5 3.4 Carbon Dioxide 24 24 BUN 63 H 63 H Creatinine 2.84 H 2.81 H Calcium 10.4 H D 9.9 Hematology 04/11/24 18:08 WBC 15.9 H Hgb 13.0 Plt Count 366 D Assessment and Plan (1) Acute kidney injury superimposed on CKD: Status: Acute Plan SHARON on CKD 4 due to compromise in renal perfusion with resultant tubular injury Urine output good. No reason to suspect lola infectious GN or AIN If serum creatinine goes up, shall check C3/C4; Hold diuresis for now No indication for renal replacement. C/W rest of current management for now Procedures Date of Service Date of Service: 04/12/24
[2024-04-12] MEDS: lamoTRIgine 25 MG TABLET 50 MG PO (20:37)
[2024-04-12] MEDS: OLANZapine 7.5 MG TABLET PO (20:37)
[2024-04-12] MEDS: 0.9 % Sodium Chloride Flush 3 ML SYRINGE IVFLUSH (20:37)
[2024-04-12] MEDS: guaiFENesin DM 100/10/5 ML 5 ML SYRUP PO (20:51)
[2024-04-13] VITALS (9 sets, daily range): BP systolic 123–156; BP diastolic 60–74; PULSE 63–86; RESP 16–18; TEMP 36.1–36.5; O2SAT 92–98
[2024-04-13] MEDS: methylPREDNISolone Sod Succ 40 MG/ML VIAL IVPUSH ×3 (01:21→23:15)
[2024-04-13 06:25] LABS: Hematocrit 40.2 % (37.0-47.0); Mean Corpuscular HGB Conc 32.3 g/dl (31.0-35.0); Mean Corpuscular Hemoglobin 30.2 pg (27.0-33.0); Mean Corpuscular Volume 93.3 fL (80.0-98.0); Mean Platelet Volume 10.3 fL (9.4-12.3); NRBC Pct Auto 0.1 /100WBC (0.0-0.2); Platelet Count 375 X10*3/uL (160-400); Red Blood Count 4.31 X10*6/uL (4.20-5.50); Red Cell Distribution Width 14.1 % (11.0-16.0); White Blood Count 16.9 X10*3/uL (4.8-10.8)
[2024-04-13 06:34] LABS: Anion Gap 19 (12-20); Blood Urea Nitrogen 72 mg/dL (9-16); Carbon Dioxide 23 mmol/L (22-29); Chloride 102 mmol/L (96-108); Creatinine Clr Calc Pharmacy 15.1; Estimated Glomerular Filt Rate 15; Glucose Random 166 mg/dL (60-115); Potassium 3.9 mmol/L (3.3-5.1); Sodium 140 mmol/L (135-145)
[2024-04-13] MEDS: guaiFENesin DM 100/10/5 ML 5 ML SYRUP PO ×4 (07:40→23:41)
[2024-04-13] MEDS: Apixaban 5 MG TABLET PO ×2 (07:40→20:08)
[2024-04-13] MEDS: Amiodarone HCL 200 MG TABLET 100 MG PO (07:40)
[2024-04-13] MEDS: Metoprolol Succinate ER 50 MG TAB.ER.24H PO (07:40)
[2024-04-13] MEDS: Doxycycline Hyclate 100 MG in 0.9 % Sodium Chloride 250 ML 166.67 MG IV ×2 (07:40→19:35)
[2024-04-13] MEDS: Cholecalciferol (Vitamin D3) 25 MCG TABLET 50 MCG PO (07:40)
[2024-04-13] MEDS: cefTRIAXone sodium 1 GM VIAL IVPUSH (07:40)
[2024-04-13] MEDS: 0.9 % Sodium Chloride Flush 3 ML SYRINGE IVFLUSH ×4 (07:45→20:18)
[2024-04-13] MEDS: OFLOXACIN 0.3% 2 EACH EYE-BOTH ×4 (07:46→20:10)
[2024-04-13] MEDS: Fluticasone/Umeclidinium/Vilanterol 100/62.5/25 BLST.W.DEV 1 PUFF INHALE (08:11)
[2024-04-13] MEDS: Albuterol/Iprat 2.5/0.5MG 3 ML AMPUL.NEB INHALE ×3 (08:13→20:29)
--- NOTE | 2024-04-13 09:07 | CA_ITS ---
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 The calculated ejection fraction is 68% by biplane method. - There is moderate mitral annular calcification. There is moderate mitral valve regurgitation. There is severe mitral valve stenosis. - There is mild to moderate tricuspid valve regurgitation. - Moderate pulmonary hypertension is present. Findings Left Ventricle Normal left ventricular cavity size. The left ventricular systolic function is normal. The calculated ejection fraction is 68% by biplane method. There is no evidence of regional wall motion abnormalities. Evidence suggests grade II (moderate) diastolic dysfunction. There is mild septal asymmetric hypertrophy. Right Ventricle Normal right ventricular cavity size and systolic function. Atria The left atrium is severely dilated. The right atrium is normal in size. Aortic Valve There is a normal trileaflet aortic valve. There is mild calcification of the aortic valve. There is no aortic valve stenosis. There is no aortic valve regurgitation. Mitral Valve There is mild anterior mitral leaflet thickening. There is moderate mitral annular calcification. There is moderate mitral valve regurgitation. There is severe mitral valve stenosis. Pulmonic Valve The pulmonic valve is likely normal. Tricuspid Valve There is mild to moderate tricuspid valve regurgitation. The right ventricular systolic pressure is 64 mmHg. Moderate pulmonary hypertension is present. Great Vessels The asc aorta is normal in size. Venous The inferior vena cava is normal in size and collapses less than 50% with inspiration. Pericardium/Pleural There is no evidence of pericardial effusion. Prior Study Comparison No significant change compared to prior study dated: 10/05/2023. Measurements 2D Linear Measurements IVSd: 1.08 0.6-0.9/0.6-1.0 cm LVIDd: 4.39 3.9-5.3/4.2-5.9 cm LVIDd Index: 2.41 2.4-3.2/2.2-3.1 cm/m2 LVIDs: 3.18 2.0-3.6 cm LVPWd: 0.81 0.7-1.1 cm LA Diam: 4.10 2.7-3.8/3.0-4.0 cm LAIDs Index: 2.25 1.5-2.3 cm/m2 LV Mass: 170.08 67-162/88-224 g LV Mass Index: 93.45 43-95/49-115 g/m2 LVOT Diam: 2.00 3.0+(-)1.3 cm 2D Systolic Function EF 4C: 65.40 >55% EF 2C: 72.10 >55% EF BiP: 68.30 >55% Mitral Valve MV VTI: 0.99 MV Pk Abel: 2.27 MV Mn Abel: 1.58 MV Pk Grad: 21.00 MV Mn Grad: 11.00 MV Pk E: 1.96 MV PK A: 1.74 MV Decel Time: 476.00 E/A: 1.10 E'Lateral: 5.66 E'Medial: 5.11 E/E' Med: 38.40 E/E' Lat: 34.60 PHT: 139.00 MVA PHT: 1.58 MVA Continuity: 0.87 Decel Blair: 4.12 MR Vol - PW Dopp: 18.70 MR VTI: 1.70 MR ERO: 11.00 MR Alias Abel: 0.38 MR RAD: 0.50 Aortic Valve AoV Pk Abel: 1.70 AoV Mn Abel: 1.12 AoV VTI: 0.39 AoV Pk Grad: 12.00 Aov Mn Grad: 6.00 KRISTOFER Cont.VTI: 2.22 LVOT LVOT Pk Abel: 1.16 LVOT Mn Abel: 0.83 LVOT VTI: 0.28 LVOT Pk Grad: 5.00 LVOT Mn Grad: 3.00 LVOT Diam: 2.00 LVOT Area: 3.14 Diastolic Function MV Pk E: 1.96 MV Pk A: 1.74 E/A: 1.10 E'Medial: 5.11 E/E' Med: 38.40 E' Laterial: 5.66 E/E' Lat: 34.60 Right Ventricle TAPSE (mm): 22.60 TVS' Abel: 13.20 Tricuspid Valve TR Pk Abel: 3.74 TR Pk Grad: 56.00 RA Press: 8.00 RVSP: 64.00 Great Vessels Aorta Sinus of Valsalva: 2.96 2.0-3.5 cm Ao Asc: 2.80 2.1-3.4 cm Updated in Other Vendor System with Status of Final Darci Mckinney MD electronically signed on 04/14/2024 1:54:30 PM with status of Final
--- NOTE | 2024-04-13 11:35 | HO.PM.IMPN ---
Subjective Subjective Date of Service: 04/13/24 Interval History: Seen and examined this morning Follow-up for pneumonia, SHARON Breathing improved somewhat, persistent cough productive of clear/white phlegm Review of Systems Review of Systems: Yes all other systems are reviewed and are negative Constitutional Constitutional: Denies chills and Denies fever(s) Cardiovascular Cardiovascular: Denies chest pain and Denies palpitations Respiratory Respiratory: Reports cough Endocrine Endocrine: Denies palpitations Physical Exam Vital Signs: Vital Signs: Last Vital Signs Temp 97.7 F 04/13/24 10:57 Pulse 80 04/13/24 10:57 Resp 18 04/13/24 10:57 BP 123/60 04/13/24 10:57 Pulse Ox 92 04/13/24 10:57 O2 Del Method Room Air 04/13/24 10:57 O2 Flow Rate 2 04/13/24 07:31 BMI result Body Mass Index 34.8 Const: General: alert and awake Nutritional Appearance: overweight Orientation/consciousness: patient oriented x3 Resp: Other: Breathing easier, bilateral wheezing improved significantly Cardio: Rate: regular rate GI: Inspection: No distended Palpation (GI): Soft to palpation and nontender Neuro: General: patient oriented x3, moves all extremities and CN's II-XI intact bilaterally Extrem: General: Yes no pedal edema Objective Data Active Medications Acetaminophen (Acetaminophen 325 Mg Tablet) 650 mg PO Q6H PRN PRN Reason: Pain, Mild 1-3,fever,headache Al Hydroxide/Mg Hydroxide (Magnesium Hydrox/Alum Hydrox 30 Ml Oral.Susp) 30 ml PO Q4H PRN PRN Reason: Heartburn Albuterol Sulfate (Albuterol Sulfate 90 Mcg 8 Gm Inhaler) 2 puff INHALE Q6H PRN PRN Reason: Wheezing Albuterol/Ipratropium (Albuterol/Iprat 2.5/0.5mg 3 Ml Ampul.Neb) 3 ml INHALE RQ6H WHILE AWAKE [facility] Last Admin: 04/13/24 08:13 Dose: 3 ml Documented By: YOSEPH Amiodarone HCl (Amiodarone Hcl 200 Mg Tablet) 100 mg PO DAILY [facility] Last Admin: 04/13/24 07:40 Dose: 100 mg Documented By: MARIA ELENA-PATTIE Apixaban (Apixaban 5 Mg Tablet) 5 mg PO BID [facility] Last Admin: 04/13/24 07:40 Dose: 5 mg Documented By: CHICO Calcium Carbonate (Calcium Carbonate 750 Mg Tab.Chew) 750 mg PO Q4H PRN PRN Reason: Heartburn Ceftriaxone Sodium (Ceftriaxone Sodium 1 Gm Vial) 1 gm IVPUSH Q24H [facility] Last Admin: 04/13/24 07:40 Dose: 1 gm Documented By: CHICO Fluticasone/Umeclidinium/Vilanterol (Fluticasone/Umeclidinium/Vilanterol 100/62.5/25 Blst.W.Dev) 1 puff INHALE RDAILY [facility] Last Admin: 04/13/24 08:11 Dose: 1 puff Documented By: YOSEPH Guaifenesin/Dextromethorphan (Guaifenesin Dm 100/10/5 Ml 5 Ml Syrup) 5 ml PO Q4H PRN PRN Reason: Cough Last Admin: 04/13/24 07:40 Dose: 5 ml Documented By: CHICO Doxycycline Hyclate 100 mg/ (Sodium Chloride) 250 mls @ 166.67 mls/hr IV Q12H [facility] Last Infusion: 04/13/24 10:05 Dose: Infused Documented By: CHICO Lamotrigine (Lamotrigine 25 Mg Tablet) 50 mg PO BEDTIME [facility] Last Admin: 04/12/24 20:37 Dose: 50 mg Documented By: LATA Magnesium Hydroxide (Milk Of Magnesia 30 Ml Oral.Susp) 30 ml PO DAILY PRN PRN Reason: Constipation Melatonin (Melatonin 3 Mg Tablet) 9 mg PO BEDTIME PRN PRN Reason: Insomnia Melatonin (Melatonin 3 Mg Tablet) 6 mg PO BEDTIME PRN PRN Reason: Insomnia Methylprednisolone Sodium Succinate (Methylprednisolone Sod Succ 40 Mg/Ml Vial) 40 mg IVPUSH Q12H [facility] Last Admin: 04/13/24 01:21 Dose: 40 mg Documented By: LATA Metoprolol Succinate (Metoprolol Succinate Er 50 Mg Tab.Er.24h) 50 mg PO DAILY [facility]; Protocol Last Admin: 04/13/24 07:40 Dose: 50 mg Documented By: CHICO Pt Own (Ofloxacin [ Ocuflox] 0.3 % Drops ) 2 drop EYE-BOTH QID [facility] Last Admin: 04/13/24 07:46 Dose: 2 drop Documented By: CHICO Non-Formulary Medication (Ofloxacin) 1 drop EYE-BOTH QID [facility] Olanzapine (Olanzapine 7.5 Mg Tablet) 7.5 mg PO BEDTIME [facility] Last Admin: 04/12/24 20:37 Dose: 7.5 mg Documented By: LATA Sodium Chloride (0.9 % Sodium Chloride Flush 3 Ml Syringe) 3 ml IVFLUSH QSHIFT [facility] Last Admin: 04/13/24 07:45 Dose: 3 ml Documented By: CHICO Vitamin D (Cholecalciferol (Vitamin D3) 25 Mcg Tablet) 50 mcg PO DAILY [facility] Last Admin: 04/13/24 07:40 Dose: 50 mcg Documented By: CHICO Labs 04/13/24 06:00 04/13/24 06:00 Labs: Laboratory Results - last 24 hr 04/13/24 06:00 MCV 93.3 MCH 30.2 MCHC 32.3 RDW 14.1 Plt Count 375 MPV 10.3 Absolute Nucleated RBC 0.020 H Nucleated RBC % (auto) 0.1 Anion Gap 19 Estim Creat Clear Calc 15.1 Estimated GFR 15 Random Glucose 166 H Calcium 10.0 Microbiology Microbiology Results: Microbiology 04/11/24 18:58 Blood Culture - Preliminary Blood - Venous No growth after 24 hours. 04/11/24 18:08 Blood Culture - Preliminary Blood - Venous No growth after 24 hours. Assessment and Plan (1) Acute kidney injury superimposed on CKD: Status: Acute (2) Elevated troponin: Status: Acute (3) Acute hypoxemic respiratory failure: Status: Acute (4) Pneumonia: Status: Acute Plan This is a 78 years old lady with PMH of HFpE on lasix 20 mg MWF, mitral stenosis, CKD 4, chronic AFib, COPD not on home O2, HTN, HLD who presents with shortness of breath and found to have hypoxia, pnumonia, chf. Acute hyoxic respiratory failure multifactorial due to pneumonia and possible component of chf and copd exacerbation Weaned off of supplemental oxygen sepsis due to bibasilar pneumonia met criteria with leukocytosis and tachypnea, no severe features, lactic wnl. will continue IV Ceftriaxone and start doxycycline rather then azithromycin given prolonged qt O2 goal of 92% Blood cultures negative to date Leukocytosis trending up due to steroid use HFpEF with possible mild exacerbation Received 1 dose of IV Lasix in the ED, additional dose of IV Lasix this morning BNP significantly elevated will hold further diuresis for now given elevated renal function Seen by cardiology and nephrology who agree to hold diuresis for now Follow ins and outs COPD exacerbation Continue systemic steroids and scheduled breathing treatments CKD 4 with mild Sharon nephrology following follow renal function closely Elevated troponin, likely type 2 [place] from above, new twave inversions on EKG seen by cardiology -ideally would need ischemic workup but due to underlying CKD may be difficult, TBD Chronic afib continue metoprolol, continue eliquis d/w cardiology ok to resume amio repeat EKG on monday Elevated LFTs, new hold statin US of liver unremarkable hep profile negative ?due to CHF trending down Qtc prolongation likely multifactorial including amio mag ok still reported as long on EKG but based on ekg review not accurate corrected qt closer to 500 or less per cardiology d/w cardiology - ok to resume amio as above; will repeat ekg monday pink eye diagnosed as outpatient resume home eye drops elevated blood sugar, no history of diabetes A1C 5.3 morbid obesity BMI 34.0 weight loss encouraged DVT prophylaxis: eliquis Patient requires ongoing inpatient stay for management of pneumonia, CHF, SHARON requiring specialist evaluation and close monitoring of renal function Quality Stroke Does the patient have a stroke diagnosis?: No VTE Prior VTE?: No VTE Risk Level:: Medical - moderate - high VTE Device Contraindication: Treatment Not Indicated VTE Drug Contraindication: N/A - Med Ordered
--- NOTE | 2024-04-13 12:18 | PM.PNCARD ---
Subjective Subjective Date of Service: 04/13/24 Interval history: She states that she is feeling okay. Denies any anginal chest pains. Having cough. Review of Systems Review of Systems Yes all other systems are reviewed and are negative Constitutional: Reports as per HPI and Reports no additional constitutional complaints Eyes: Reports as per HPI and Denies no additional eye complaints Denies system reviewed and no additional complaints, except as documented and Reports as per HPI Cardiovascular: Reports as per HPI, Reports no additional cardiovascular complaints, Denies acrocyanosis, Denies cool extremities, Denies chest pain, Denies leg edema, Denies lightheadedness, Denies palpitations and Reports dyspnea Respiratory: Reports as per HPI, Denies no additional respiratory complaints, Reports cough and Reports dyspnea Gastrointestinal: Reports as per HPI and Denies no additional gastrointestinal complaints Genitourinary: Reports as per HPI Musculoskeletal: Reports no additional musculoskeletal complaints and Reports as per HPI Skin/Breast: Reports system reviewed and no additional complaints, except as docu Reports system reviewed and no additional complaints, except as documented and Reports as per HPI Psychiatric: Reports no additional psychiatric complaints and Reports as per HPI Endocrine: Reports no additional endocrine complaints, Reports as per HPI and Denies palpitations Hematologic/Lymphatic: Reports no additional hematologic/lymphatic complaints and Reports as per HPI Allergic/Immunologic: Reports no additional allergic/immunologic complaints and Reports as per HPI Physical Exam Vital Signs: Last Vital Signs Temp 97.7 F 04/13/24 10:57 Pulse 80 04/13/24 10:57 Resp 18 04/13/24 10:57 BP 123/60 04/13/24 10:57 Pulse Ox 92 04/13/24 10:57 O2 Del Method Room Air 04/13/24 10:57 O2 Flow Rate 2 04/13/24 07:31 BMI result Body Mass Index 34.8 Const General: comfortable and no acute distress Orientation/consciousness: patient oriented x3 HEENT Other: Unremarkable Head: Yes normal to inspection Neck Neck: Yes normal visual inspection Chest Chest palpation & inspection: normal inspection of the chest Resp Auscultation: wheezes and diminished lung sounds Cardio Palpation: normal PMI Heart sounds: S1 normal heart sound present, S2 normal heart sound present, no gallops, no murmurs and no rubs GI Palpation (GI): Soft to palpation Back/Spine/Pelvis Other: unremarkable Skin General skin exam: no rashes or lesions noted Neuro General: patient oriented x3 Extrem General: Yes normal to inspection Psych Mental Status: mental status grossly normal Objective Labs and Meds 04/13/24 06:00 04/13/24 06:00 Lab results: Laboratory Results - last 24 hr 04/13/24 06:00 WBC 16.9 H RBC 4.31 Hgb 13.0 Hct 40.2 MCV 93.3 MCH 30.2 MCHC 32.3 RDW 14.1 Plt Count 375 MPV 10.3 Absolute Nucleated RBC 0.020 H Nucleated RBC % (auto) 0.1 Sodium 140 Potassium 3.9 Chloride 102 Carbon Dioxide 23 Anion Gap 19 BUN 72 H Creatinine 3.00 H Estim Creat Clear Calc 15.1 Estimated GFR 15 Random Glucose 166 H Calcium 10.0 Progress Note: A&P Assessment and plan (1) Acute hypoxemic respiratory failure: Status: Acute (2) Acute on chronic diastolic (congestive) heart failure: Status: Acute (3) Paroxysmal atrial fibrillation: Status: Acute (4) Elevated troponin: Status: Acute (5) Acute kidney injury superimposed on CKD: Status: Acute Plan Pertinent data reviewed. Elevated kidney function compared to prior. High sensitivity troponin in the 200s. Cardiac BNP 1333. Higher than before. Last echocardiogram from September with LVEF of 67%. Moderate diastolic dysfunction. Severe mitral annular calcification with moderate regurgitation/at least moderate stenosis. Moderate to severe pulmonary hypertension. To repeat. Chest x-ray reported to have bibasilar pneumonia. EKG shows anterior T inversions which is a new finding. Overall, possibly some combination of pneumonia/congestive heart failure. More so towards pneumonia to the cough symptom. Cautious with diuretics as the kidney function is abnormal. She is also on empiric antibiotics. With regard to elevated troponins, suspect demand related rise. Ideally, we will need ischemic workup, but with her kidney issues, we will need to decide timing. As above, EKG is also abnormal. Otherwise, QT slightly prolonged but still okay to continue amiodarone as there is high chance of going back into atrial fibrillation. Continue with anticoagulation. We will closely follow with you. Discussed with Jud Christiansen. Time Spent With Patient Time: Total time managing care of this patient today ____ minutes. Progress Note: Quality Stroke Does the patient have a stroke diagnosis?: No Procedures Date of Service Date of Service: 04/13/24
[2024-04-13] MEDS: lamoTRIgine 25 MG TABLET 50 MG PO (20:08)
[2024-04-13] MEDS: OLANZapine 7.5 MG TABLET PO (20:08)
[2024-04-14] VITALS (10 sets, daily range): BP systolic 115–156; BP diastolic 58–89; PULSE 61–102; RESP 16–20; TEMP 35.8–36.7; O2SAT 88–99
[2024-04-14] MEDS: guaiFENesin DM 100/10/5 ML 5 ML SYRUP PO ×3 (06:21→16:49)
--- NOTE | 2024-04-14 07:00 | ECG_ITS ---
Test Reason : follow qtc Blood Pressure : */* mmHG Vent. Rate : 64 BPM Atrial Rate : 64 BPM P-R Int : 200 ms QRS Dur : 108 ms QT Int : 472 ms P-R-T Axes : 62 57 48 degrees QTcB Int : 486 ms Normal sinus rhythm Normal EKG When compared with ECG of 12-Apr-2024 12:29, T wave inversion no longer evident in Inferior leads T wave inversion no longer evident in Anterior leads QT has shortened Referred By: Jud Christiansen Electronically Signed By: MAITE MACHADO
[2024-04-14 07:38] LABS: Anion Gap 14 (12-20); Blood Urea Nitrogen 76 mg/dL (9-16); Calcium 9.9 mg/dL (8.4-10.2); Carbon Dioxide 22 mmol/L (22-29); Chloride 105 mmol/L (96-108); Creatinine Clr Calc Pharmacy 16.7; Estimated Glomerular Filt Rate 17; Glucose Random 150 mg/dL (60-115); Sodium 137 mmol/L (135-145)
[2024-04-14] MEDS: cefTRIAXone sodium 1 GM VIAL IVPUSH (07:55)
[2024-04-14] MEDS: Doxycycline Hyclate 100 MG in 0.9 % Sodium Chloride 250 ML 166.67 MG IV ×2 (07:56→20:21)
[2024-04-14] MEDS: Apixaban 5 MG TABLET PO ×2 (07:59→20:21)
[2024-04-14] MEDS: Cholecalciferol (Vitamin D3) 25 MCG TABLET 50 MCG PO (07:59)
[2024-04-14] MEDS: Metoprolol Succinate ER 50 MG TAB.ER.24H PO (08:00)
[2024-04-14] MEDS: Amiodarone HCL 200 MG TABLET 100 MG PO (08:01)
[2024-04-14] MEDS: Acetaminophen 325 MG TABLET 650 MG PO (08:02)
[2024-04-14] MEDS: OFLOXACIN 0.3% 2 EACH EYE-BOTH ×4 (08:05→20:22)
[2024-04-14] MEDS: Fluticasone/Umeclidinium/Vilanterol 100/62.5/25 BLST.W.DEV 1 PUFF INHALE (08:19)
[2024-04-14] MEDS: Albuterol/Iprat 2.5/0.5MG 3 ML AMPUL.NEB INHALE ×3 (08:19→20:02)
[2024-04-14] MEDS: guaiFENesin LA 600 MG TAB.ER.12H PO ×2 (11:16→20:21)
[2024-04-14] MEDS: methylPREDNISolone Sod Succ 40 MG/ML VIAL IVPUSH ×2 (11:16→23:27)
[2024-04-14] MEDS: 0.9 % Sodium Chloride Flush 3 ML SYRINGE IVFLUSH ×2 (11:17→20:22)
[2024-04-14] MEDS: polyethylene glycoL 3350 17 GM POWD.PACK PO (11:17)
--- NOTE | 2024-04-14 11:50 | HO.PM.IMPN ---
Subjective Subjective Date of Service: 04/14/24 Interval History: seen and examined this morning follow up for pneumonia reporting productive cough, no sob Review of Systems Review of Systems: Yes all other systems are reviewed and are negative Constitutional Constitutional: Denies chills and Denies fever(s) Cardiovascular Cardiovascular: Denies chest pain, Denies palpitations and Denies dyspnea Respiratory Respiratory: Reports cough and Denies dyspnea Endocrine Endocrine: Denies palpitations Physical Exam Vital Signs: Vital Signs: Last Vital Signs Temp 97.8 F 04/14/24 11:28 Pulse 65 04/14/24 11:28 Resp 18 04/14/24 11:28 BP 118/58 L 04/14/24 11:28 Pulse Ox 88 L 04/14/24 11:28 O2 Del Method Nasal Cannula 04/14/24 11:28 O2 Flow Rate 1 04/14/24 11:28 BMI result Body Mass Index 34.8 Const: General: cooperative, alert and awake Nutritional Appearance: overweight Orientation/consciousness: patient oriented x3 Resp: Other: Breathing easier, bilateral wheezing improved significantly Cardio: Rate: regular rate GI: Inspection: No distended Palpation (GI): Soft to palpation and nontender Neuro: Other: UE tremor General: patient oriented x3, moves all extremities and CN's II-XI intact bilaterally Extrem: General: Yes no pedal edema Objective Data Active Medications Acetaminophen (Acetaminophen 325 Mg Tablet) 650 mg PO Q6H PRN PRN Reason: Pain, Mild 1-3,fever,headache Last Admin: 04/14/24 08:02 Dose: 650 mg Documented By: CHICO Al Hydroxide/Mg Hydroxide (Magnesium Hydrox/Alum Hydrox 30 Ml Oral.Susp) 30 ml PO Q4H PRN PRN Reason: Heartburn Albuterol Sulfate (Albuterol Sulfate 90 Mcg 8 Gm Inhaler) 2 puff INHALE Q6H PRN PRN Reason: Wheezing Albuterol/Ipratropium (Albuterol/Iprat 2.5/0.5mg 3 Ml Ampul.Neb) 3 ml INHALE RQ6H WHILE AWAKE [facility] Last Admin: 04/14/24 08:19 Dose: 3 ml Documented By: YOSEPH Amiodarone HCl (Amiodarone Hcl 200 Mg Tablet) 100 mg PO DAILY [facility] Last Admin: 04/14/24 08:01 Dose: 100 mg Documented By: CHICO Apixaban (Apixaban 5 Mg Tablet) 5 mg PO BID [facility] Last Admin: 04/14/24 07:59 Dose: 5 mg Documented By: CHICO Calcium Carbonate (Calcium Carbonate 750 Mg Tab.Chew) 750 mg PO Q4H PRN PRN Reason: Heartburn Ceftriaxone Sodium (Ceftriaxone Sodium 1 Gm Vial) 1 gm IVPUSH Q24H [facility] Last Admin: 04/14/24 07:55 Dose: 1 gm Documented By: CHICO Fluticasone/Umeclidinium/Vilanterol (Fluticasone/Umeclidinium/Vilanterol 100/62.5/25 Blst.W.Dev) 1 puff INHALE RDAILY [facility] Last Admin: 04/14/24 08:19 Dose: 1 puff Documented By: YOSEPH Guaifenesin (Guaifenesin La 600 Mg Tab.Er.12h) 600 mg PO BID [facility] Last Admin: 04/14/24 11:16 Dose: 600 mg Documented By: CHICO Guaifenesin/Dextromethorphan (Guaifenesin Dm 100/10/5 Ml 5 Ml Syrup) 5 ml PO Q4H PRN PRN Reason: Cough Last Admin: 04/14/24 11:16 Dose: 5 ml Documented By: CHICO Doxycycline Hyclate 100 mg/ (Sodium Chloride) 250 mls @ 166.67 mls/hr IV Q12H [facility] Last Infusion: 04/14/24 10:36 Dose: Infused Documented By: CHICO Lamotrigine (Lamotrigine 25 Mg Tablet) 50 mg PO BEDTIME [facility] Last Admin: 04/13/24 20:08 Dose: 50 mg Documented By: LATA Magnesium Hydroxide (Milk Of Magnesia 30 Ml Oral.Susp) 30 ml PO DAILY PRN PRN Reason: Constipation Melatonin (Melatonin 3 Mg Tablet) 6 mg PO BEDTIME PRN PRN Reason: Insomnia Methylprednisolone Sodium Succinate (Methylprednisolone Sod Succ 40 Mg/Ml Vial) 40 mg IVPUSH Q12H [facility] Last Admin: 04/14/24 11:16 Dose: 40 mg Documented By: CHICO Metoprolol Succinate (Metoprolol Succinate Er 50 Mg Tab.Er.24h) 50 mg PO DAILY [facility]; Protocol Last Admin: 04/14/24 08:00 Dose: 50 mg Documented By: CHICO Pt Own (Ofloxacin [ Ocuflox] 0.3 % Drops ) 2 drop EYE-BOTH QID [facility] Last Admin: 04/14/24 11:19 Dose: 2 drop Documented By: CHICO Olanzapine (Olanzapine 7.5 Mg Tablet) 7.5 mg PO BEDTIME [facility] Last Admin: 04/13/24 20:08 Dose: 7.5 mg Documented By: LATA Polyethylene Glycol (Polyethylene Glycol 3350 17 Gm Powd.Pack) 17 gm PO DAILY [facility] Last Admin: 04/14/24 11:17 Dose: 17 gm Documented By: CHICO Sodium Chloride (0.9 % Sodium Chloride Flush 3 Ml Syringe) 3 ml IVFLUSH QSHIFT [facility] Last Admin: 04/14/24 11:17 Dose: 3 ml Documented By: CHICO Vitamin D (Cholecalciferol (Vitamin D3) 25 Mcg Tablet) 50 mcg PO DAILY [facility] Last Admin: 04/14/24 07:59 Dose: 50 mcg Documented By: CHICO Labs 04/13/24 06:00 04/14/24 07:01 Labs: Laboratory Results - last 24 hr 04/14/24 07:01 Anion Gap 14 Estim Creat Clear Calc 16.7 Estimated GFR 17 Random Glucose 150 H Calcium 9.9 Microbiology Microbiology Results: Microbiology 04/11/24 18:58 Blood Culture - Preliminary Blood - Venous No growth after 48 hours. 04/11/24 18:08 Blood Culture - Preliminary Blood - Venous No growth after 48 hours. Assessment and Plan (1) Acute kidney injury superimposed on CKD: Status: Acute (2) Elevated troponin: Status: Acute (3) Pneumonia: Status: Acute Plan This is a 78 year old lady with PMH of HFpEF on lasix 20 mg MWF, mitral stenosis, CKD 4, chronic AFib, COPD not on home O2, HTN, HLD who presents with shortness of breath and found to have hypoxia, pnumonia, chf. Acute hyoxic respiratory failure multifactorial due to pneumonia and possible component of chf and copd exacerbation back on 1L NC sepsis due to bibasilar pneumonia met criteria with leukocytosis and tachypnea, no severe features, lactic wnl. will continue IV Ceftriaxone and continue doxycycline rather then azithromycin given prolonged qt O2 goal of > 90% Blood cultures negative to date Leukocytosis trending up due to steroid use HFpEF with possible mild exacerbation Received 1 dose of IV Lasix in the ED, additional dose of IV Lasix this morning BNP significantly elevated will hold further diuresis for now given elevated renal function Seen by cardiology and nephrology who agree to hold diuresis for now Follow ins and outs COPD exacerbation Continue systemic steroids and scheduled breathing treatments CKD 4 with mild Charles creatinine trending down to 2.72 nephrology following follow renal function closely Elevated troponin, likely type 2 PR from above, new twave inversions on EKG seen by cardiology -ideally would need ischemic workup but due to underlying CKD may be difficult, TBD Chronic afib continue metoprolol, continue eliquis d/w cardiology ok to resume amio repeat EKG qt better Elevated LFTs, new hold statin US of liver unremarkable hep profile negative ?due to CHF trending down Qtc prolongation likely multifactorial including amio mag ok still reported as long on EKG but based on ekg review not accurate corrected qt closer to 500 or less per cardiology d/w cardiology - ok to resume amio as above improved on repeat EKG pink eye diagnosed as outpatient resume home eye drops elevated blood sugar, no history of diabetes A1C 5.3 morbid obesity BMI 34.0 weight loss encouraged DVT prophylaxis: shorty Patient requires ongoing inpatient stay for management of pneumonia, CHF, CHARLES requiring specialist evaluation and close monitoring of renal function Quality Stroke Does the patient have a stroke diagnosis?: No VTE Prior VTE?: No VTE Risk Level:: Medical - moderate - high VTE Device Contraindication: Treatment Not Indicated VTE Drug Contraindication: N/A - Med Ordered
[2024-04-14] MEDS: lamoTRIgine 25 MG TABLET 50 MG PO (20:21)
[2024-04-14] MEDS: OLANZapine 7.5 MG TABLET PO (20:22)
[2024-04-15 03:44] VITALS: BP 140/66; PULSE 65; RESP 18; TEMP 37.1; O2SAT 94
[2024-04-15] MEDS: Fluticasone/Umeclidinium/Vilanterol 100/62.5/25 BLST.W.DEV 1 PUFF INHALE (07:38)
[2024-04-15] MEDS: Albuterol/Iprat 2.5/0.5MG 3 ML AMPUL.NEB INHALE (07:39)
[2024-04-15 07:40] VITALS: PULSE 65; RESP 18; O2SAT 90
[2024-04-15 08:00] VITALS: BP 138/67; PULSE 64; RESP 17; TEMP 36.4; O2SAT 92
[2024-04-15] MEDS: Doxycycline Hyclate 100 MG in 0.9 % Sodium Chloride 250 ML 166.67 MG IV (08:30)
[2024-04-15] MEDS: Metoprolol Succinate ER 50 MG TAB.ER.24H PO (08:30)
[2024-04-15] MEDS: Acetaminophen 325 MG TABLET 650 MG PO (08:30)
[2024-04-15] MEDS: Cholecalciferol (Vitamin D3) 25 MCG TABLET 50 MCG PO (08:30)
[2024-04-15] MEDS: polyethylene glycoL 3350 17 GM POWD.PACK PO (08:30)
[2024-04-15] MEDS: Apixaban 5 MG TABLET PO (08:30)
[2024-04-15] MEDS: Amiodarone HCL 200 MG TABLET 100 MG PO (08:30)
[2024-04-15] MEDS: guaiFENesin DM 100/10/5 ML 5 ML SYRUP PO (08:30)
[2024-04-15] MEDS: guaiFENesin LA 600 MG TAB.ER.12H PO (08:30)
[2024-04-15] MEDS: 0.9 % Sodium Chloride Flush 3 ML SYRINGE IVFLUSH (08:32)
[2024-04-15] MEDS: OFLOXACIN 0.3% 2 EACH EYE-BOTH ×2 (08:38→11:19)
[2024-04-15] MEDS: cefTRIAXone sodium 1 GM VIAL IVPUSH (08:44)
--- NOTE | 2024-04-15 09:18 | PM.PNCARD ---
Subjective Subjective Date of Service: 04/15/24 Interval history: She states she feels better. Still having cough but otherwise feeling okay. Not having any active chest pain. Had an echocardiogram over the weekend. Review of Systems Review of Systems Yes all other systems are reviewed and are negative Constitutional: Reports as per HPI and Reports no additional constitutional complaints Eyes: Reports as per HPI and Denies no additional eye complaints Denies system reviewed and no additional complaints, except as documented and Reports as per HPI Cardiovascular: Reports as per HPI, Reports no additional cardiovascular complaints, Denies acrocyanosis, Denies cool extremities, Denies chest pain, Denies leg edema, Denies lightheadedness, Denies palpitations and Reports dyspnea Respiratory: Reports as per HPI, Denies no additional respiratory complaints, Reports cough and Reports dyspnea Gastrointestinal: Reports as per HPI and Denies no additional gastrointestinal complaints Musculoskeletal: Reports no additional musculoskeletal complaints and Reports as per HPI Skin/Breast: Reports system reviewed and no additional complaints, except as docu Reports system reviewed and no additional complaints, except as documented and Reports as per HPI Psychiatric: Reports no additional psychiatric complaints and Reports as per HPI Endocrine: Reports no additional endocrine complaints, Reports as per HPI and Denies palpitations Hematologic/Lymphatic: Reports no additional hematologic/lymphatic complaints and Reports as per HPI Allergic/Immunologic: Reports no additional allergic/immunologic complaints and Reports as per HPI Physical Exam Vital Signs: Last Vital Signs Temp 97.6 F 04/15/24 08:00 Pulse 64 04/15/24 08:00 Resp 17 04/15/24 08:00 BP 138/67 04/15/24 08:00 Pulse Ox 92 04/15/24 08:00 O2 Del Method Nasal Cannula 04/15/24 08:00 O2 Flow Rate 1 04/15/24 08:00 BMI result Body Mass Index 34.8 Const General: comfortable and no acute distress Orientation/consciousness: patient oriented x3 HEENT Other: Unremarkable Head: Yes normal to inspection Neck Neck: Yes normal visual inspection Chest Chest palpation & inspection: normal inspection of the chest Resp Auscultation: wheezes and diminished lung sounds Cardio Palpation: normal PMI Heart sounds: S1 normal heart sound present, S2 normal heart sound present, no gallops, no murmurs and no rubs GI Palpation (GI): Soft to palpation Back/Spine/Pelvis Other: unremarkable Skin General skin exam: no rashes or lesions noted Neuro General: patient oriented x3 Extrem General: Yes normal to inspection Psych Mental Status: mental status grossly normal Objective Labs and Meds 04/13/24 06:00 04/14/24 07:01 Progress Note: A&P Assessment and plan (1) Acute hypoxemic respiratory failure: Status: Acute (2) Acute on chronic diastolic (congestive) heart failure: Status: Acute (3) Paroxysmal atrial fibrillation: Status: Acute (4) Elevated troponin: Status: Acute (5) Acute kidney injury superimposed on CKD: Status: Acute Plan Pertinent data reviewed. Elevated kidney function compared to prior. High sensitivity troponin in the 200s. Cardiac BNP 1333. Higher than before. In the echocardiogram from this admission, LVEF 68%. Moderate mitral annular calcification; moderate mitral regurgitation; severe mitral valve stenosis; [id number] tricuspid regurgitation with pulmonary hypertension. In the previous echocardiogram from last year, LVEF of 67%. Moderate diastolic dysfunction. Severe mitral annular calcification with moderate regurgitation/at least moderate stenosis. Moderate to severe pulmonary hypertension. Chest x-ray reported to have bibasilar pneumonia. EKG shows anterior T inversions which is a new finding-now resolved. Overall, possibly some combination of pneumonia/congestive heart failure. Cautious with diuretics as the kidney function is abnormal. She is also on empiric antibiotics. With regard to elevated troponins, suspect demand related rise. Consider eventual ischemic workup but she also has abnormal kidney function and currently has no chest pain. EKG changes of normalized. There is no overt wall motion abnormality on echocardiogram. With regard to atrial fibrillation history, continue amiodarone/Eliquis. Follow up in clinic after discharge. Time Spent With Patient Time: Total time managing care of this patient today ____ minutes. Progress Note: Quality Stroke Does the patient have a stroke diagnosis?: No Procedures Date of Service Date of Service: 04/15/24
[2024-04-15 10:42] VITALS: O2SAT 84; O2SAT 87; O2SAT 90; O2SAT 91
[2024-04-15 11:11] LABS: Anion Gap 17 (12-20); Blood Urea Nitrogen 83 mg/dL (9-16); Calcium 9.8 mg/dL (8.4-10.2); Carbon Dioxide 20 mmol/L (22-29); Chloride 105 mmol/L (96-108); Creatinine Clr Calc Pharmacy 19.2; Estimated Glomerular Filt Rate 20; Glucose Random 256 mg/dL (60-115); Potassium 4.1 mmol/L (3.3-5.1); Sodium 138 mmol/L (135-145)
[2024-04-15] MEDS: methylPREDNISolone Sod Succ 40 MG/ML VIAL IVPUSH (11:16)
[2024-04-15 11:18] LABS: B Type Natriuretic Peptide 358 pg/mL (<100)
--- NOTE | 2024-04-15 11:45 | P.DS_ITS ---
DS: Providers Provider Date of Service: 04/15/24 Date of admission: 04/11/24 23:52 Date of discharge: 04/15/24 Primary care physician: ROSA UribeP- Consults: 04/12/24 07:56 Consult to Cardiology Routine Consulting [place] [facility] Reason for consultation: chf, prolonged qt on amio, elevated troponin Has provider been notified: No 04/12/24 10:33 Consult to Nephrology Routine Consulting Provider[place] [facility] Reason for consultation: sharon on ckd ?cardiorenal Has provider been notified: No DS: Diagnosis Discharge Diagnosis (1) Acute hypoxemic respiratory failure: Status: Acute (2) Acute on chronic diastolic (congestive) heart failure: Status: Acute (3) Paroxysmal atrial fibrillation: Status: Acute (4) Elevated troponin: Status: Acute (5) Acute kidney injury superimposed on CKD: Status: Acute DS: Summary Hospital Course Hospital Course: History and physical as per admitting provider. A 78 years old lady with PMH of HFpE on lasix 20 mg MWF, mitral stenosis, CKD 4, chronic AFib, COPD not on home O2, HTN, HLD who presents with shortness of breath that has been ongoing for at least 3 weeks and worse the last several days. She is having cough with yellow/green phlgem production, no fever but having chills. She has been using inhalers more frequently without relief. Additionally, she bee feeling weak, exhausted and having hard time getting out of bed. Work up in ED: WBC 15.9, VBG reassuring, troponin I 249 repeat 201, BNP level 1333 (above baseline) , random glucose 237. Flu/RSV/covid negative. CXR bibasilar pneumonia, ECG Prolonged Qtc, no acute ischemic changes. 78-year-old woman treated for acute hypoxic respiratory failure with sepsis secondary to bibasilar pneumonia, COPD exacerbation and heart failure with preserved ejection fraction. She was started on oxygen, ceftriaxone and doxycycline as well as Solu-Medrol and breathing treatments. For the heart failure she was treated with IV Lasix but diuresis was held when she developed SHARON. She was seen by Cardiology who agreed to hold diuresis. Her creatinine has trended down to 2.36 which is likely to be the patient's new baseline. Patient can continue her home dose of oral Lasix Monday, Monday and Monday. Her BNP has decreased significantly as well. She had a mild COPD exacerbation and had a home oxygen evaluation and she will be sent home with 2 L of oxygen with activity. She was noted to have transaminitis likely secondary to heart failure. Resolved She was noted to have elevated troponin likely type 2 from all of the respiratory issues. Patient can follow up with Cardiology outpatient for possible ischemic workup. Chronic atrial fibrillation. Continue metoprolol, amiodarone and Eliquis Elevated blood sugar readings. No history of diabetes. A1c 5.3. Likely secondary to steroids. Morbid obesity. BMI 34.8. Discussed importance of weight management as this may be contributing to worsening of other comorbidities Conjunctivitis. Diagnosis outpatient, may continue medications that were given to her previously Qtc prolongation. Likely multifactorial due to amiodarone, magnesium has been okay. Okay to resume amiodarone with improvement on repeat EKG Time Attestation Discharge Coordination Time (in mins): 45 Quality: Safe Use of Opioids Does Pt have an Active Cancer Diagnosis on the Problem List?: No Quality: Stroke Does the patient have a stroke diagnosis?: No Physical Exam Vital Signs: Vital Signs: Last Vital Signs Temp 97.6 F 04/15/24 08:00 Pulse 64 04/15/24 08:00 Resp 17 04/15/24 08:00 BP 138/67 04/15/24 08:00 Pulse Ox 92 04/15/24 08:00 O2 Del Method Nasal Cannula 04/15/24 08:00 O2 Flow Rate 1 04/15/24 08:00 BMI result Body Mass Index 34.8 Appearing in no acute distress head is normocephalic atraumatic eyes pupils are PERRLA sclera is anicteric mouth throat mucous membranes are intact and moist neck is supple no lymphadenopathy, no JVD noted lung sounds are clear to auscultation heart regular rate rhythm, clear S1, S2 positive bowel sounds, abdomen is soft, nontender neuro patient is alert x3, no focal deficits DS: Data Data Completed and Pending Labs on day of discharge: Laboratory Results - last 24 hr 04/15/24 10:53 Sodium 138 Potassium 4.1 Chloride 105 Carbon Dioxide 20 L Anion Gap 17 BUN 83 H Creatinine 2.36 H Estim Creat Clear Calc 19.2 Estimated GFR 20 Random Glucose 256 H Calcium 9.8 B-Natriuretic Peptide 358 H Preliminary micro results at discharge 04/11/24 18:58 Blood Culture - Preliminary Blood - Venous No growth after 48 hours. 04/11/24 18:08 Blood Culture - Preliminary Blood - Venous No growth after 48 hours. Discharge Plan Discharge Anticipated Discharge Date/Time: 04/15/24 11:31 Patient Disposition: Home Health Service Discharge Diagnosis: Acute hypoxic respiratory failure Sepsis Bibasilar pneumonia Heart failure with preserved ejection fraction COPD exacerbation SHARON on CKD stage 4 Elevated troponin Referrals: Juan Jose Ellington FNP- [Primary Care Provider] - 1 Week Discharge Medications: New dextromethorphan-guaifenesin 10-100 mg/5 mL Syrup 5 ml PO Q4H PRN (Reason: Cough) Qty: 237 0RF cefuroxime axetil 500 mg tablet 500 mg PO BID Qty: 2 0RF doxycycline hyclate 100 mg tablet 100 mg PO BID Qty: 4 0RF prednisone 10 mg tablet 40 mg PO DIRECTED Qty: 20 0RF Rx Instructions: Take 40 mg of prednisone daily for 5 days Continued simvastatin 20 mg tablet 20 mg PO BEDTIME Qty: 90 1RF amiodarone 200 mg tablet 100 mg PO DAILY 90 Days Qty: 45 3RF metoprolol succinate 25 mg tablet extended release 24 hr 50 mg PO DAILY Qty: 180 3RF Eliquis 5 mg tablet 5 mg PO BID Qty: 60 6RF melatonin 10 mg Tablet 10 mg PO BEDTIME olanzapine 7.5 mg tablet 7.5 mg PO BEDTIME hydroxyzine HCl 10 mg tablet 10 mg PO DAILY PRN (Reason: anxiety) Trelegy Ellipta 100-62.5-25 mcg blister with device 1 ea inhalation DAILY furosemide 20 mg tablet 20 mg PO MOWEFR ofloxacin 0.3 % drops 1 - 2 drp ophthalmic (eye) QID acetaminophen 325 mg capsule 325 mg PO QID PRN (Reason: pain) 7 Days Qty: 28 0RF lamotrigine 25 mg tablet 50 mg PO BEDTIME cholecalciferol (vitamin D3) 50 mcg (2,000 unit) capsule 50 mcg PO DAILY albuterol sulfate [Ventolin HFA] 90 mcg/actuation HFA aerosol inhaler 2 puff inhalation Q6H PRN (Reason: Wheezing) cranberry 500 mg capsule 1,000 mg PO DAILY Rx Instructions: administer with meals Discharge Orders: Discharge Order (Routine); Ordered 04/15/24 Ordered By: Martha Mao Diet: Advance to usual diet Activity on Discharge: As tolerated Stand Alone Forms: Patient Portal Discharge page Print Language: Frisian Care Plan Goals: He will be going home with Oxygen therapy, 2 L with activity Health Concerns: Acute hypoxic respiratory failure Sepsis Bibasilar pneumonia Heart failure with preserved ejection fraction COPD exacerbation SHARON on CKD stage 4 Elevated troponin Plan of Treatment: Follow-up with primary care provider as needed Take all medications as prescribed Assessment: See discharge summary
--- NOTE | 2024-04-15 11:50 | W.MHC.F2F ---
Service Date Service Date: 04/15/24 Encounter Date of encounter: 04/15/24 Reasons for Services Signs and symptoms assessed: Acute hypoxic respiratory failure Pneumonia Heart failure with preserved ejection fraction Reason for prison: CV/CP assess and/or care and other (New to oxygen) Homebound: Leaving the home is medically contraindicated at this time without the asist of a device and/or another person due th the listed conditions above and below. Reason homebound: unsteady gait / fall risk Certification: Based on the above findings, I certify that this patient is confined to the home and needs intermittent prison care, physical therapy and/or speech therapy, or continues to need occupational therapy. The patient is under my care, and I have initiated the establishment of the plan of care. The patient will be followed by a physician who will periodically review the plan of care. Time Spent With Patient Time: Total time managing care of this patient today ____ minutes.
[2024-04-15 12:00] VITALS: BP 136/63; PULSE 62; RESP 18; TEMP 36.3; O2SAT 92
--- NOTE | 2024-04-15 12:53 | MHC.CM.PN ---
PT CLEARED TO DC HOME TODAY WITH [facility]
--- NOTE | 2024-04-30 08:51 | P.CDIM_ITS ---
PROVIDER RESPONSE TEXT: To clarify, the appropriate diagnosis supported by the clinical indicators: Sepsis is/was present on admission QUERY TEXT: PHYSICIAN'S DOCUMENTATION REQUEST Date of Query: 04/30/2024 07:23 AM EDT Patient Name: Nikki Borjas Admit Date: 04/12/2024 Dear Martha Mao BELL STAFF, A review of the medical record indicates additional documentation may be needed. Please review below and update the documentation accordingly. Documentation on progress note dated 04/15/24 included the diagnosis of sepsis. The patient's infectious clinical indicators include: WBC 15.9 respiratory rate 22 lactic acid WNL treated with IV antibiotic for bibasilar pneumonia Recognized standard criteria for this condition and other infectious definitions includes: Bacteremia Abnormal laboratory test - does not indicate a clinically ill patient Sepsis Systemic manifestations of infection, with 2 or more SIRS criteria which include: Fever > 100.4?F or hypothermia < 96.8?F Leukocytosis - WBC > 12,000 or leukopenia, WBC < 4,000, or > 10% bands Tachycardia- > 90 beats/minute Tachypnea- RR > 20 breaths/minute or PaCO2 < 32mmHg Source: Merck Manual 2013 Documentation should include the known or suspected organism, and the underlying infection, such as U TI or pneumonia Based on the above information and the recognized standard for sepsis, could you please clarify if Se psis was present on admission Sepsis is/was present on admission After study, Sepsis has been ruled out Other (explain) Clinically unable to determine (explain) Thank you, Ava Rowe RN Use of terms such as suspected, likely, concern for, or probable (associated with a specific diagnosi s that is being evaluated, monitored, or treated as if it exists) are acceptable and can be coded in the inpatient se tting, when documented at the time of discharge. Please use your independent medical judgment in providing your response. THIS QUERY IS PART OF THE PERMANENT MEDICAL RECORD
== END 2024-04-15 15:30 | disposition home health service (06) | DRG 871 ==
LOC: HO.ED 19:58 → HO.EDOVER 04-12 00:02 → HO.IMC 04-12 16:46
PROVIDERS: Physician Assistant Medical; Registered Nurse Emergency; Admitting Provider Internal Medicine; Emergency Provider Internal Medicine; PCP Nurse Practitioner Family; Visit Provider Nurse Practitioner Acute Care
DX: A41.9 Sepsis, unspecified organism (principal); I21.A1 Myocardial infarction type 2; I50.33 Acute on chronic diastolic (congestive) heart failure; J18.9 Pneumonia, unspecified organism; J96.01 Acute respiratory failure with hypoxia; I13.0 Hypertensive heart and chronic kidney disease with heart failure and stage 1 through stage 4 chronic kidney disease, or unspecified chronic kidney disease; N18.4 Chronic kidney disease, stage 4 (severe); J44.0 Chronic obstructive pulmonary disease with (acute) lower respiratory infection; J44.1 Chronic obstructive pulmonary disease with (acute) exacerbation; E66.01 Morbid (severe) obesity due to excess calories; Z68.34 Body mass index [BMI] 34.0-34.9, adult; Z71.3 Dietary counseling and surveillance; I05.2 Rheumatic mitral stenosis with insufficiency; I27.20 Pulmonary hypertension, unspecified; Z20.822 Contact with and (suspected) exposure to COVID-19; Z87.891 Personal history of nicotine dependence; Z79.01 Long term (current) use of anticoagulants; Z79.899 Other long term (current) drug therapy
CPT/HCPCS: 0241U; 36415; 71046; 76700; 80048; 80053; 80076; 82803; 82947; 83036; 83605; 83735; 83880; 84484; 85025; 85027; 85610; 86704; 86706; 86709; 86803; 87040; 87340; 93005; 93306; 94640; 97161; 99285; J0692; J0696; J1940; J2919; Q9957

== ENCOUNTER → 2024-04-11 17:53 | Outpatient (BNV) | payer MEDICARE, MEDICAID, SELFPAY | PROVIDERS: Emergency Provider Internal Medicine; PCP Nurse Practitioner Family; Visit Provider Radiology Diagnostic Radiology | DX: J18.9 Pneumonia, unspecified organism (principal); J69.0 Pneumonitis due to inhalation of food and vomit | CPT/HCPCS: 71046 ==

== ENCOUNTER 2024-04-11 23:52 | Outpatient (BNV) | payer MEDICARE, MEDICAID, SELFPAY | END 2024-04-12 07:00 | PROVIDERS: Admitting Provider Internal Medicine; Emergency Provider Internal Medicine; PCP Nurse Practitioner Family; Visit Provider Radiology Diagnostic Radiology | DX: N28.1 Cyst of kidney, acquired (principal) | CPT/HCPCS: 76700 ==

== ENCOUNTER 2024-04-11 23:52 | Outpatient (BNV) | payer MEDICARE, MEDICAID, SELFPAY | END 2024-04-12 06:00 | PROVIDERS: Admitting Provider Internal Medicine; Emergency Provider Internal Medicine; PCP Nurse Practitioner Family; Visit Provider Internal Medicine | DX: R94.31 Abnormal electrocardiogram [ECG] [EKG] (principal) | CPT/HCPCS: 93010 ==

== ENCOUNTER 2024-04-11 23:52 | Outpatient (BNV) | payer MEDICARE, MEDICAID, SELFPAY | END 2024-04-13 09:07 | PROVIDERS: Admitting Provider Internal Medicine; Emergency Provider Internal Medicine; PCP Nurse Practitioner Family; Visit Provider Internal Medicine | DX: I35.1 Nonrheumatic aortic (valve) insufficiency (principal); I34.81 Nonrheumatic mitral (valve) annulus calcification; I34.0 Nonrheumatic mitral (valve) insufficiency | CPT/HCPCS: 93306 ==

== ENCOUNTER 2024-04-11 23:52 | Outpatient (BNV) | payer MEDICARE, MEDICAID, SELFPAY | END 2024-04-14 07:00 | PROVIDERS: Admitting Provider Internal Medicine; Emergency Provider Internal Medicine; PCP Nurse Practitioner Family; Visit Provider Internal Medicine | DX: Z13.6 Encounter for screening for cardiovascular disorders (principal) | CPT/HCPCS: 93010 ==

== ENCOUNTER → 2024-04-11 23:52 | Outpatient (BNV) | payer MEDICARE, MEDICAID, SELFPAY | PROVIDERS: Admitting Provider Internal Medicine; Emergency Provider Internal Medicine; PCP Nurse Practitioner Family; Visit Provider Internal Medicine Nephrology | DX: N17.9 Acute kidney failure, unspecified (principal); N18.9 Chronic kidney disease, unspecified | CPT/HCPCS: 99223 ==

== ENCOUNTER → 2024-04-11 23:52 | Outpatient (BNV) | payer MEDICARE, MEDICAID, SELFPAY | PROVIDERS: Admitting Provider Internal Medicine; Emergency Provider Internal Medicine; PCP Nurse Practitioner Family; Visit Provider Physician Assistant Medical | DX: N17.9 Acute kidney failure, unspecified (principal); N18.9 Chronic kidney disease, unspecified; R79.89 Other specified abnormal findings of blood chemistry; J18.9 Pneumonia, unspecified organism | CPT/HCPCS: 99233; 99239; G0180 ==

== ENCOUNTER → 2024-04-11 23:52 | Outpatient (BNV) | payer MEDICARE, MEDICAID, SELFPAY | PROVIDERS: Admitting Provider Internal Medicine; Emergency Provider Internal Medicine; PCP Nurse Practitioner Family; Visit Provider Internal Medicine | DX: J96.01 Acute respiratory failure with hypoxia (principal); I50.33 Acute on chronic diastolic (congestive) heart failure; I48.0 Paroxysmal atrial fibrillation; R79.89 Other specified abnormal findings of blood chemistry; N17.9 Acute kidney failure, unspecified; N18.9 Chronic kidney disease, unspecified | CPT/HCPCS: 93010; 99223; 99233 ==

== ENCOUNTER 2024-04-24 17:02 | Emergency (ER) | payer MEDICARE, MEDICAID, SELFPAY ==
--- NOTE | ~2024-04-24 | XR_ITS ---
CLINICAL HISTORY: hematoma 3 view right hand 3 view right wrist Comparison: DX/SR - XR WRIST RT MIN 3V - 03/01/22 08:41 EST Findings: No fractures or dislocations. No significant loss of joint space or osteophytes. No erosions. No radiopaque foreign body. IMPRESSION: Masslike soft tissue fullness within the wrist. No acute bony abnormality. This document has been electronically signed by: Melly Rivera MD on 04/24/2024 18:13:53
--- NOTE | 2024-04-24 17:29 | ED_ITS ---
HPI - Extremity Injury (Upper) General Chief Complaint: Extremity Injury, Upper Stated Complaint: ? HEMATOMA RIGHT HAND Time Seen by Provider: 04/24/24 23:05 Source: patient, RN notes reviewed and old records reviewed Mode of arrival: ambulatory Limitations: no limitations History of Present Illness ED Provider: Fred HPI narrative: 78-year-old female past medical history significant for atrial fibrillation on Eliquis, mitral regurg, congestive heart failure, recent admission for pneumonia presents for evaluation of swelling and bruising to her right arm. Patient reports she just noticed swelling to right upper arm this morning. Family reports that it started around 3:00 p.m.. The patient's grandson states that he help the patient apply ice the area and the swelling seemed to improve The patient denies any significant trauma, she would not fall, denies bumping her arm against anything. She has no pain to the area. Denies any fevers, chills no weakness Related Data Home Medications ?Medication ?Instructions ?Recorded ?Confirmed albuterol sulfate 90 mcg/actuation 2 puff inhalation Q6H PRN Wheezing 09/23/20 04/18/24 aerosol inhaler (Ventolin HFA) cholecalciferol (vitamin D3) 50 50 mcg PO DAILY 09/23/20 04/18/24 mcg (2,000 unit) capsule lamotrigine 25 mg tablet 50 mg PO BEDTIME 09/23/20 04/18/24 melatonin 10 mg tablet 10 mg PO BEDTIME 03/31/21 04/18/24 cranberry 500 mg capsule 1,000 mg PO DAILY 06/16/22 04/18/24 olanzapine 7.5 mg tablet 7.5 mg PO BEDTIME 10/12/23 04/18/24 fluticasone fur. 100 mcg-umeclid 1 ea inhalation DAILY 04/11/24 04/18/24 62.5 mcg-vilant 25 mcg inhalat.powder (Trelegy Ellipta) furosemide 20 mg tablet 20 mg PO MOWEFR 04/11/24 04/18/24 hydroxyzine HCl 10 mg tablet 10 mg PO DAILY PRN anxiety 04/11/24 04/18/24 ofloxacin 0.3 % eye drops 1 - 2 drp ophthalmic (eye) QID 04/11/24 04/18/24 Previous Rx's ?Medication ?Instructions ?Recorded acetaminophen 325 mg capsule 325 mg PO QID PRN pain 7 days #28 07/24/22 caps simvastatin 20 mg tablet 20 mg PO BEDTIME #90 tabs 10/04/23 amiodarone 200 mg tablet 100 mg (1/2 x 200 mg) PO DAILY 90 12/07/23 days #45 tabs metoprolol succinate 25 mg 50 mg (2 x 25 mg) PO DAILY #180 12/21/23 tablet,extended release 24 hr tabs apixaban 5 mg tablet (Eliquis) 5 mg PO BID #60 tabs 02/26/24 cefuroxime axetil 500 mg tablet 500 mg PO BID #2 tabs 04/15/24 dextromethorphan-guaifenesin 10 5 ml PO Q4H PRN Cough #237 mL 04/15/24 mg-100 mg/5 mL oral syrup doxycycline hyclate 100 mg tablet 100 mg PO BID #4 tabs 04/15/24 prednisone 10 mg tablet 40 mg (4 x 10 mg) PO DIRECTED 04/15/24 #20 tabs walker #1 ea 04/22/24 Allergies Allergy/AdvReac Type Severity Reaction Status Date / Time Sulfa (Sulfonamide Allergy Severe RASH, Verified 04/24/24 17:34 Antibiotics) Anaphylaxis [SULFA (SULFONAMIDE ANTIBIOTICS)] Review of Systems 2 Constitutional: Constitutional: Denies body ache(s), Denies chills and Denies fever(s) Eyes: Eyes: Denies blurry vision ENT: Denies vertigo Musculoskeletal: Musculoskeletal: Denies arthralgias, Reports joint swelling and Denies limited range of motion Integumentary/Breasts: Skin/Breast: Reports unusual bruising Neurologic: Denies vertigo [facility] Past Medical History Medical History Emphysema of lung Tardive dyskinesia Coarse tremors Hypersomnia Snoring SHARON (acute kidney injury) Mediastinal lymphadenopathy Atrial fibrillation Dyslipidemia Kidney disease Leukocytosis Necrotizing granulomatous inflammation of lung Bipolar 1 disorder Vitamin D deficiency COPD (chronic obstructive pulmonary disease) Sarcoidosis HTN (hypertension) [place] nephropathy Surgical History History of cardioversion History of bronchoscopy Family History Family History Child No Financial Resp No problems noted. Family/Other Substance use disorder Social History Social History Household Members: Family Household Members Other:: 3 Housing: House Are you a primary career developer to a significant other at home: No Do you presently have visiting nurse or other home services: Yes Alcohol intake: never Patient Tobacco Use Status: Former Tobacco user Tobacco use type: Cigarette Years Smoked: 50 +/- e-Cigarette/Vaping Use: Never Used Second Hand Smoke Exposure: No Advance Directives: Yes Advance Directives on File: Yes Advance Directives Date on File: 04/26/21 Do you have a plan to hurt others: No Plan service: No Current occupational status: retired 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 Current occupational exposures/hazards: No Cognitive needs: No Hearing needs: No Vision needs: Yes Physical Exam 2 Vital Signs: Vital Signs: Last Vital Signs Temp 98.8 F 04/24/24 21:30 Pulse 62 04/24/24 21:30 Resp 12 04/24/24 21:30 BP 122/59 L 04/24/24 21:30 Pulse Ox 99 04/24/24 21:30 O2 Del Method Room Air 04/24/24 21:30 BMI result Body Mass Index 34.4 Const: General: healthy appearing, comfortable, no acute distress, alert and awake Nutritional Appearance: well nourished Orientation/consciousness: p atient oriented x3 HEENT: Head: Yes normocephalic and Yes atraumatic Eyes: Eyelids: Yes eyelids normal Conjunctivae: conjunctivae normal S clerae: sclerae normal Corneas: corneas normal Pupils: Equal, round and reactive pupils present EOM: EOMs intact bilaterally Neck: Neck: Yes full ROM Resp: Effort & Inspection: normal respiratory effort, able to speak in complete sentences and not labored Skin: General skin exam: elasticity normal Neuro: General: patient oriented x3 Cranial nerves: Yes Equal, round and reactive pupils present and Yes Bilaterally intact EOM present Cognition (Neuro): normal cognition Extrem: Other: The patient has marked edema with the ecchymosis to the right upper extremity and dorsal surface of the proximal hand extending to the wrist and distal forearm. Approximately 4 x 8 cm area of edema, ecchymosis. There was no tenderness to palpation. No open wounds. The patient retains full range of motion with flexion-extension of the right wrist. She was able to flex No fingers of the right hand. Radial pulses are 2+ and equal Course Course Course Narrative: This is a Rapid Medical Exam performed in triage by Anju Chandra PA-C. Full HPI, ROS and PE to be performed by primary ED provider. 78 years old lady with PMH of HFpE on lasix 20 mg MWF, mitral stenosis, CKD 4, chronic AFib on Eliquis, COPD on 2L home O2, HTN, HLD who presents to the ED w/atraumatic right wrist hematoma x today PE: +large hematoma noted to R wrist. NV intact. Fingers cold Plan: Labs, XR Medical Decision Making Medical Decision Making [facility] Narrative: 78-year-old female presents for evaluation of swelling and bruising to her right wrist in the dorsal surface. The exam is most consistent with a hematoma. This is not consistent with an abscess or ganglion cyst. There is no erythema. No reported trauma to the area x-ray is negative for fracture. Radial pulses 2+ and equal, she retains full range of motion of the right wrist. We will treat with rest, ice, compression, elevation. Per the patient's grandson, the swelling already seems to be improving Differential Diagnosis Differential Diagnoses: The differential diagnosis associated with the presentation includes Hematoma Contusion Ganglion cyst Abscess Lab Data [facility] Lab Attestation statement: I reviewed the patient's lab results. Mild leukocytosis to 14.7, the patient was recently recovering from a pneumonia. There is no significant anemia, the patient's hemoglobin 13.3 and a hematocrit of 40.4 is consistent with her baseline. Slight elevation of the PT/INR. The patient is on Eliquis for AFib. No significant chemistry abnormalities outside of the patient's baseline. The patient has chronic kidney disease, her BUN and creatinine of 54 and 1.94 respectively are actually improved compared to her recent baseline. 04/24/24 18:27 04/24/24 18:26 Labs: Lab Results 04/24/24 04/24/24 Range/Units 18:26 18:27 WBC 14.7 H (4.8-10.8) X10*3/uL RBC 4.27 (4.20-5.50) X10*6/uL Hgb 13.3 (12.0-16.0) g/dl Hct 40.4 (37.0-47.0) % MCV 94.6 (80.0-98.0) fL MCH 31.1 (27.0-33.0) pg MCHC 32.9 (31.0-35.0) g/dl RDW 15.0 (11.0-16.0) % Plt Count 243 D (160-400) X10*3/uL MPV 11.0 (9.4-12.3) fL Immature Gran % (Auto) 1.0 H (0.0-0.4) % Neut % (Auto) 81.0 H (45-73) % Lymph % (Auto) 8.6 L (20-40) % Hudspeth % (Auto) 7.1 (2-11) % Eos % (Auto) 2.2 (0-4) % Baso % (Auto) 0.1 (0-2) % Lymph # (Auto) 1.3 (1.2-4.9) X10*3/uL [place]speth # (Auto) 1.1 (0.1-1.2) X10*3/uL Eos # (Auto) 0.3 (0.0-0.4) X10*3/uL Baso # (Auto) 0.0 (0.0-0.2) X10*3/uL Abs Immat Gran (auto) 0.14 H (0.00-0.03) X10*3/uL Absolute Neuts (auto) 11.9 H (2.0-8.3) x10*3/uL Absolute Nucleated RBC 0.000 (0.0-0.012) X10*3/uL Nucleated RBC % (auto) 0.0 (0.0-0.2) /100WBC PT 14.4 H D (10.9-12.4) SEC INR 1.2 H (0.9-1.1) APTT 35.1 (26.0-36.8) SEC Sodium 140 (135-145) mmol/L Potassium 4.1 (3.3-5.1) mmol/L Chloride 109 H (96-108) mmol/L Carbon Dioxide 24 (22-29) mmol/L Anion Gap 11 L (12-20) BUN 54 H (9-16) mg/dL Creatinine 1.94 H (0.5-1.4) mg/dL Estim Creat Clear Calc 23.2 Estimated GFR 25 Random Glucose 144 H (60-115) mg/dL Calcium 8.9 D (8.4-10.2) mg/dL Total Bilirubin 0.6 (0.0-1.0) mg/dL Direct Bilirubin 0.2 (0.0-0.5) mg/dL AST 31 (5-31) U/L ALT 43 H (0-31) U/L Alkaline Phosphatase 69 (39-117) U/L Total Protein 5.8 L (6.5-8.0) g/dL Albumin 3.3 L (3.5-5.0) g/dL Radiology Impression Discussion of test interpretation with radiology: I have reviewed the radiologist's reading. Radiologist Impression: Findings: No fractures or dislocations. No significant loss of joint space or osteophytes. No erosions. No radiopaque foreign body. IMPRESSION: Masslike soft tissue fullness within the wrist. No acute bony abnormality. This document has been electronically signed by: Melly Rivera MD on 04/24/2024 18:13:53 Discharge Plan Discharge Clinical Impression: Hematoma of right upper extremity Patient Disposition: Home, Self-Care Instructions: Hematoma (ED) Additional Instructions: Your exam is consistent with a large hematoma. Your x-ray does not show any fracture. Your blood work is reassuring. I recommend elevating the arm above your heart while resting. Applying ice every 4 hours for 10-15 minutes. Light compression with an Tony wrap that was applied can help reduce swelling Follow-up with your primary doctor, return for new or worsening symptoms Prescriptions: No Action simvastatin 20 mg tablet 20 mg PO BEDTIME Qty: 90 1RF amiodarone 200 mg tablet 100 mg PO DAILY 90 Days Qty: 45 3RF metoprolol succinate 25 mg tablet extended release 24 hr 50 mg PO DAILY Qty: 180 3RF Eliquis 5 mg tablet 5 mg PO BID Qty: 60 6RF (DME) walker Misc See Rx Instructions .Route Qty: 1 0RF Rx Instructions: Standard walker, no wheels melatonin 10 mg Tablet 10 mg PO BEDTIME olanzapine 7.5 mg tablet 7.5 mg PO BEDTIME hydroxyzine HCl 10 mg tablet 10 mg PO DAILY PRN (Reason: anxiety) Trelegy Ellipta 100-62.5-25 mcg blister with device 1 ea inhalation DAILY furosemide 20 mg tablet 20 mg PO MOWEFR ofloxacin 0.3 % drops 1 - 2 drp ophthalmic (eye) QID dextromethorphan-guaifenesin 10-100 mg/5 mL Syrup 5 ml PO Q4H PRN (Reason: Cough) Qty: 237 0RF cefuroxime axetil 500 mg tablet 500 mg PO BID Qty: 2 0RF doxycycline hyclate 100 mg tablet 100 mg PO BID Qty: 4 0RF prednisone 10 mg tablet 40 mg PO DIRECTED Qty: 20 0RF Rx Instructions: Take 40 mg of prednisone daily for 5 days acetaminophen 325 mg capsule 325 mg PO QID PRN (Reason: pain) 7 Days Qty: 28 0RF lamotrigine 25 mg tablet 50 mg PO BEDTIME cholecalciferol (vitamin D3) 50 mcg (2,000 unit) capsule 50 mcg PO DAILY albuterol sulfate [Ventolin HFA] 90 mcg/actuation HFA aerosol inhaler 2 puff inhalation Q6H PRN (Reason: Wheezing) cranberry 500 mg capsule 1,000 mg PO DAILY Rx Instructions: administer with meals Print Language: Emirati
[2024-04-24 17:30] VITALS: BP 118/58; PULSE 61; RESP 18; TEMP 36.3; O2SAT 94; BMI 34.4
[2024-04-24 18:32] LABS: MANUAL DIFF FLAG NO
[2024-04-24 18:44] LABS: Basophils Percent Auto 0.1 % (0-2); Eosinophils Absolute Auto 0.3 X10*3/uL (0.0-0.4); Eosinophils Percent Auto 2.2 % (0-4); Hematocrit 40.4 % (37.0-47.0); Hemoglobin 13.3 g/dl (12.0-16.0); Imm Gran Abs Auto 0.14 X10*3/uL (0.00-0.03); Lymphocytes Absolute Auto 1.3 X10*3/uL (1.2-4.9); Lymphocytes Percent Auto 8.6 % (20-40); Mean Corpuscular HGB Conc 32.9 g/dl (31.0-35.0); Mean Corpuscular Hemoglobin 31.1 pg (27.0-33.0); Mean Corpuscular Volume 94.6 fL (80.0-98.0); Monocytes Absolute Auto 1.1 X10*3/uL (0.1-1.2); Monocytes Percent Auto 7.1 % (2-11); Neutrophils Absolute Auto 11.9 x10*3/uL (2.0-8.3); Platelet Count 243 X10*3/uL (160-400); Red Blood Count 4.27 X10*6/uL (4.20-5.50); White Blood Count 14.7 X10*3/uL (4.8-10.8)
[2024-04-24 18:46] LABS: INTERNATIONAL NORM RATIO 1.2 (0.9-1.1); Prothrombin Time 14.4 SEC (10.9-12.4)
[2024-04-24 18:48] LABS: Alanine Aminotransferase 43 U/L (0-31); Albumin Level 3.3 g/dL (3.5-5.0); Alkaline Phosphatase 69 U/L (39-117); Anion Gap 11 (12-20); Aspartate Amino Transferase 31 U/L (5-31); Bilirubin Direct 0.2 mg/dL (0.0-0.5); Bilirubin Total 0.6 mg/dL (0.0-1.0); Blood Urea Nitrogen 54 mg/dL (9-16); Calcium 8.9 mg/dL (8.4-10.2); Carbon Dioxide 24 mmol/L (22-29); Chloride 109 mmol/L (96-108); Creatinine Clr Calc Pharmacy 23.2; Estimated Glomerular Filt Rate 25; Glucose Random 144 mg/dL (60-115); Potassium 4.1 mmol/L (3.3-5.1); Sodium 140 mmol/L (135-145); Total Protein 5.8 g/dL (6.5-8.0)
[2024-04-24 18:49] LABS: Partial Thromboplastin Time 35.1 SEC (26.0-36.8)
[2024-04-24 21:30] VITALS: BP 122/59; PULSE 62; RESP 12; TEMP 37.1; O2SAT 99
--- OUTSIDE RECORDS SUMMARY | 2024-04-24 21:31 | XMS_ITS | Encounter Summary ---
Author Organization [facility] Address [address] [place] [address] Phone Care Team Providers Care Brick Off Bearer Name Role Phone Juan Jose Ellington ALKYLATION OPERATOR Primary Care Provider [phone] Encounter Details Date Type Department Care Team (Late Contact Info) Description 10/25/2023 Documentation Only [facility] [address] [place] [address] Tatyana Ritchie [address] [place] [address] Social History Tobacco Use Types [...] Visit [facility] [address] [place] [address] Cortes Rowe MD [address] [place] [address] [place] [address] documented as of this encounter Visit Diagnoses Not on filedocumented in this encounter Care Teams Brick Off Bearer Relationship Specialty Start Date End Date Juan Jose Ellington NP [address] [place] [address] PCP - General 12/25/18 documented as of this encounter
--- OUTSIDE RECORDS SUMMARY | 2024-04-24 21:31 | XMS_ITS | Encounter Summary ---
Author Organization [facility] Address [address] [place] [address] Phone Care Team Providers Care Health Support Specialist Name Role Phone Juan Jose Ellington PROJECT MANAGER/DESIGN MANAGER Primary Care Provider [phone] Encounter Details Date Type Department Care Team (Late Contact Info) Description 10/25/2023 Documentation Only [facility] [address] [place] [address] Tatyana Ritchie [address] [place] [address] Social History Tobacco Use Types [...] Visit [facility] [address] [place] [address] Cortes Rowe MD [address] [place] [address] [place] [address] documented as of this encounter Visit Diagnoses Not on filedocumented in this encounter Care Teams Health Support Specialist Relationship Specialty Start Date End Date Juan Jose Ellington NP [address] [place] [address] PCP - General 12/25/18 documented as of this encounter
--- OUTSIDE RECORDS SUMMARY | 2024-04-24 21:31 | XMS_ITS | Encounter Summary ---
Author Organization [facility] Address [address] [place] [address] Phone Care Team Providers Care Rrt Name Role Phone Juan Jose Ellington PHARMACOLOGIST Primary Care Provider [phone] Encounter Details Date Type Department Care Team (Late Contact Info) Description 03/19/2024 Documentation Only [facility] [address] [place] [address] Tatyana Ritchie [address] [place] [address] Social History Tobacco Use Types [...] Visit [facility] [address] [place] [address] Cortes Rowe MD [address] [place] [address] [place] [address] documented as of this encounter Visit Diagnoses Not on filedocumented in this encounter Care Teams Rrt Relationship Specialty Start Date End Date Juan Jose Ellington NP [address] [facility] [place] [address] PCP - General 12/25/18 documented as of this encounter
--- OUTSIDE RECORDS SUMMARY | 2024-04-24 21:31 | XMS_ITS | Encounter Summary ---
Author Organization [facility] Address [address] [place] [address] Phone Care Team Providers Care Extractions Technologist Name Role Phone Juan Jose Ellington PLANT SCIENCES PROFESSOR Primary Care Provider [phone] Encounter Details Date Type Department Care Team (Late Contact Info) Description 10/12/2023 Documentation Only [facility] [address] [place] [address] Tatyana Ritchie [address] [place] [address] Social History Tobacco Use Types [...] Visit [facility] [address] [place] [address] Cortes Rowe MD [address] [place] [address] [place] [address] documented as of this encounter Visit Diagnoses Not on filedocumented in this encounter Care Teams Extractions Technologist Relationship Specialty Start Date End Date Juan Jose Ellington NP [address] [place] [address] PCP - General 12/25/18 documented as of this encounter
--- OUTSIDE RECORDS SUMMARY | 2024-04-24 21:31 | XMS_ITS | Encounter Summary ---
Author Organization [facility] Address [address] [place] [address] Phone Care Team Providers Care Engine Hostler Name Role Phone Juan Jose Ellington CHIEF DISPATCHER SERVICE Primary Care Provider [phone] Encounter Details Date Type Department Care Team (Late Contact Info) Description 03/26/2024 Documentation Only [facility] [address] [place] [address] Tatyana Ritchie [address] [place] [address] Social History Tobacco Use Types [...] Visit [facility] [address] [place] [address] Cortes Rowe MD [address] [place] [address] [place] [address] documented as of this encounter Visit Diagnoses Not on filedocumented in this encounter Care Teams Engine Hostler Relationship Specialty Start Date End Date Juan Jose Ellington NP [address] [place] [address] PCP - General 12/25/18 documented as of this encounter
--- OUTSIDE RECORDS SUMMARY | 2024-04-24 21:31 | XMS_ITS | Encounter Summary ---
Author Organization [facility] Address [address] [place] [address] Phone Care Team Providers Care Horticultural Technical Officer Name Role Phone Juan Jose Ellington BUSINESS SYSTEM MANAGER Primary Care Provider [phone] Encounter Details Date Type Department Care Team (Late Contact Info) Description 10/25/2023 Documentation Only [facility] [address] [place] [address] Tatyana Ritchie [address] [place] [address] Social History Tobacco Use Types [...] Visit [facility] [address] [place] [address] Cortes Rowe MD [address] [place] [address] [place] [address] documented as of this encounter Visit Diagnoses Not on filedocumented in this encounter Care Teams Horticultural Technical Officer Relationship Specialty Start Date End Date Juan Jose Ellington NP [address] [facility] [place] [address] PCP - General 12/25/18 documented as of this encounter
--- OUTSIDE RECORDS SUMMARY | 2024-04-24 21:31 | XMS_ITS | Encounter Summary ---
Author Organization [facility] [place], Address [address] [place] [address] Phone Care Team Providers Care Driftman Name Role Phone Juan Jose Ellington JOSIAH Primary Care Provider [phone] Encounter Details Date Type Department Care Team (Late Contact Info) Description 03/26/2024 Orders Only [facility] [address] [place] [address] Cortes Rowe MD [address] [facility] [address] [place] [address] Social History Tobacco Use Types [...] Visit [facility] [place], [address] [place] [address] Cortes Rowe MD [address] [address] [place] [address] documented as of this encounter [...] Albumin, Urine <3.0 Not Estab. ug/mL [facility] Albumin/Creatin ine Ratio <3 0 - 29 mg/g creat [facility] Comment: ? Normal: ?0 - ??29 ? Moderately increased: 30 - 300 ? Severely increased: ? >300 03/26/2024 9:00 AM EST 03/26/2024 us Cortes Rowe MD LAB URINE ORDERABLES Final Re sult [facility] [address] [place] [phone] * Protein, Total, Random Urine w/Creatinine (Protein/Creat Ratio) (03/26/2024 9:00 AM EST) Creatinine, Ur 85.8 Not Estab. mg/dL [facility] Protein, Ur 7.3 Not Estab. mg/dL [facility] Urine Protein/Creatin ine Ratio 85 0 - 200 mg/g creat [facility] 03/26/2024 9:00 AM EST 03/26/2024 Cortes Rowe MD LAB URINE ORDERABLES Final Re sult [facility] [address] [place] [phone] * Microscopic Examination (03/26/2024 9:00 AM EST) WBC, Urine 0-5 0 - 5 /hpf [facility] RBC, Urine None seen 0 - 2 /hpf [facility] Squamous Epithelial, Urine 0-10 0 - 10 /hpf [facility] Casts None seen None seen /lpf [facility] Bacteria, Urine None seen None seen/Few [facility] 03/26/2024 9:00 AM EST 03/26/2024 Cortes Rowe MD LAB MICROBIOLOGY - GENERAL OR DERABLES Final Result Performing Organization Address City/[facility]/ZIP Co de Phone Number [facility] [address] [place] [phone] * (ABNORMAL) Urinalysis with microscopic (03/26/2024 9:00 AM EST) Specific [place], Urine 1.012 1.005 - 1.030 [facility] pH Urine 6.0 5.0 - 7.5 [facility] Color, Urine Yellow Yellow [facility] Appearance Urine Clear Clear [facility] WBC Esterase Urine Trace(A) Negative [facility] Protein, Ur Negative Negative/Tra ce [facility] Glucose, Ur Negative Negative [facility] Ketones, Urine Negative Negative [facility] Blood Urine Negative Negative [facility] Bilirubin Urine Negative Negative [facility] Urobilinogen Urine 0.2 0.2 - 1.0 mg/dL [facility] Nitrite, Urine Negative Negative [facility] Microscopic Examination See below: [facility] Comment:Microscopic was isidro cated and was performed. 03/26/2024 9:00 AM EST 03/26/2024 us Cortes Rowe MD LAB URINE ORDERABLES Final Re sult [facility] [address] [place] [address] documented in this encounter Visit Diagnoses Not on filedocumented in this encounter Care Teams Driftman Relationship Specialty Start Date End Date Juan Jose Ellington NP [facility] [place] [address] PCP - General 12/25/18 documented as of this encounter
--- OUTSIDE RECORDS SUMMARY | 2024-04-24 21:31 | XMS_ITS | Encounter Summary ---
Author Organization [facility] Address [address] [place] [address] Phone Care Team Providers Care Type Soldering Machine Tender Name Role Phone Juan Jose Ellington DIRECTOR OF HOSPITALITY Primary Care Provider [phone] Encounter Details Date Type Department Care Team (Late Contact Info) Description 03/19/2024 Documentation Only [facility] [address] [place] [address] Tatyana Ritchie [address] [place] [address] Social History Tobacco Use Types [...] Visit [facility] [address] [place] [address] Cortes Rowe MD [address] [place] [address] [place] [address] documented as of this encounter Visit Diagnoses Not on filedocumented in this encounter Care Teams Type Soldering Machine Tender Relationship Specialty Start Date End Date Juan Jose Ellington NP [address] [place] [address] PCP - General 12/25/18 documented as of this encounter
--- OUTSIDE RECORDS SUMMARY | 2024-04-24 21:31 | XMS_ITS | Clinical Summary ---
Author Organization [facility], Address [address] [place] [address] [place] [address] Phone Care Team Providers Care Weather Reporter Name Role Phone Juan Jose Ellington NP Primary Care Provider [phone] Allergies No known active allergies Medications albuterol [...] Only [facility] [address] [place] [phone] Cortes Rowe MD 03/26/2024 Documentation Only [facility] [address] [place] [phone] Tatyana Ritchie 03/21/2024 1:30 PM EST Office Visit [facility] [address] [place] [phone] Cortes Rowe MD Stage 3b chronic kidney disease (HCC) (Primary Dx) 03/19/2024 Documentation Only [facility] [address] [place] [phone] Tatyana Ritchie 03/19/2024 Documentation Only [facility] [address] [place] [address] Tatyana Ritchie from Last 3 Months Family [...] Visit [facility] [address] [place] [phone] Cortes Rowe MD [address] [place] [address] Health Maintenance Due Date Last Done [...] Urine 0-5 0 - 5 /hpf [facility] RBC, Urine None seen 0 - 2 /hpf [facility] Squamous Epithelial, Urine 0-10 0 - 10 /hpf [facility] Casts None seen None seen /lpf [facility] Bacteria, Urine None seen None seen/Few [facility] 03/26/2024 9:00 AM EST 03/26/2024 Cortes Rowe MD LAB MICROBIOLOGY - GENERAL OR DERABLES Final Result Performing Organization Address City/[facility]/ZIP Co de Phone Number [facility] [address] [place] [address] * Protein, Total, Random Urine w/Creatinine (Protein/Creat Ratio) (03/26/2024 9:00 AM EST) Creatinine, Ur 85.8 Not Estab. mg/dL [facility] Protein, Ur 7.3 Not Estab. mg/dL [facility] Urine Protein/Creatin ine Ratio 85 0 - 200 mg/g creat [facility] 03/26/2024 9:00 AM EST 03/26/2024 Cortes Rowe MD LAB URINE ORDERABLES Final Re sult Performing Organization Address City/[facility]/ZIP Co de Phone Number [facility] [address] [place] [address] * Urine Albumin / Creatinine Ratio (03/26/2024 9:00 AM EST) Albumin, Urine <3.0 Not Estab. ug/mL [facility] Albumin/Creatin ine Ratio <3 0 - 29 mg/g creat [facility] Comment: ? Normal: ?0 - ??29 ? Moderately increased: 30 - 300 ? Severely increased: ? >300 03/26/2024 9:0 0 AM EST 03/26/2024 us Cortes Rowe MD LAB URINE ORDERABLES Final Lashon thapa [facility] [address] [place] [address] * (ABNORMAL) Urinalysis with microscopic (03/26/2024 9:00 AM EST) Specific [place], Urine 1.012 1.005 - 1.030 [facility] pH Urine 6.0 5.0 - 7.5 [facility] Color, Urine Yellow Yellow [facility] Appearance Urine Clear Clear [facility] WBC Esterase Urine Trace(A) Negative [facility] Protein, Ur Negative Negative/Tra ce [facility] Glucose, Ur Negative Negative [facility] Ketones, Urine Negative Negative [facility] Blood Urine Negative Negative [facility] [phone] Bilirubin Urine Negative Negative [facility] Urobilinogen Urine 0.2 0.2 - 1.0 mg/dL [facility] Nitrite, Urine Negative Negative [facility] Microscopic Examination See below: [facility] Comment:Microscopic was isidro cated and was performed. 03/26/2024 9:00 AM EST 03/26/2024 Cortes Rowe MD LAB URINE ORDERABLES Final Re sult Performing Organization Address [facility] Co de Phone Number [facility] [address] [place] [address] * Iron Panel (Fe, TIBC, TSAT) (03/21/2024 2:21 PM EST) TIBC 374 250 - 450 ug/dL [facility] UIBC 281 118 - 369 ug/dL [facility] Iron 93 27 - 139 ug/dL [facility] Iron Saturation (TSat) 25 15 - 55 % [facility] Blood (Blood, Venous) 03/21/2024 2:21 PM EST 03/21/2024 Cortes Rowe MD LAB BLOOD ORDERABLES Final Re sult Performing Organization Address [facility] de Phone Number [facility] [address] [place] [address] * (ABNORMAL) Vitamin D 25 Hydroxy (03/21/2024 2:21 PM EST) Vitamin D, 25-OH, Total 29.6(L) 30.0 - 100.0 ng/mL [facility] Comment: Vitamin D deficiency has been defined by the [place] of [employer] and an Endocrine Society practice guideline as a level of serum 25-OH vitamin D less than 20 ng/mL (1,2). The Endocrine Society went on to further define vitamin D insufficiency as a level between 21 and 29 ng/mL (2). 1. IOM ([place] of [employer]). 2010. Dietary reference ?? intakes [...] Rowe MD LAB BLOOD ORDERABLES Final [facility] [address] [place] [address] * CBC and Differential (03/21/2024 2:21 PM EST) WBC 8.2 3.4 - 10.8 x10E3/uL [facility] RBC 4.28 3.77 - 5.28 x10E6/uL [facility] Hemoglobin 13.5 11.1 - 15.9 g/dL [facility] Hematocrit 40.5 34.0 - 46.6 % [facility] MCV 95 79 - 97 fL [facility] MCH 31.5 26.6 - 33.0 pg [facility] MCHC 33.3 31.5 - 35.7 g/dL [facility] RDW 12.9 11.7 - 15.4 % [facility] Platelets 246 150 - 450 x10E3/uL [facility] Neutrophils Relative 70 Not Estab. % [facility] Lymphocytes Relative 13 Not Estab. % [facility] Monocytes 10 Not Estab. % [facility] Eosinophils Relative 5 Not Estab. % [facility] Basophils Relative 1 Not Estab. % [facility] Neutrophils Absolute 5.8 1.4 - 7.0 x10E3/uL [facility] Lymphocytes Absolute 1.1 0.7 - 3.1 x10E3/uL [facility] Monocytes Absolute 0.8 0.1 - 0.9 x10E3/uL [facility] Eosinophils Absolute 0.4 0.0 - 0.4 x10E3/uL [facility] Basophils Absolute 0.1 0.0 - 0.2 x10E3/uL [facility] Immature Granulocytes 1 Not Estab. % [facility] Immature Grans (Absolute) 0.1 0.0 - 0.1 x10E3/uL [facility] Blood (Blood, Venous) 03/21/2024 2:21 PM EST 03/21/2024 Cortes Rowe MD LAB BLOOD ORDERABLES Final Re sult [facility] [address] [place] [address] * (ABNORMAL) PTH, Intact (03/21/2024 2:21 PM EST) PTH 87(H) 15 - 65 pg/mL [facility] Blood (Blood, Venous) 03/21/2024 2:21 PM EST 03/21/2024 Cortes Rowe MD LAB BLOOD ORDERABLES Final Re sult [facility] [address] [place] [address] * (ABNORMAL) Ferritin (03/21/2024 2:21 PM EST) Ferritin 181(H) 15 - 150 ng/mL [facility] Blood (Blood, Venous) 03/21/2024 2:21 PM EST 03/21/2024 Cortes Rowe MD LAB BLOOD ORDERABLES Final Re sult [facility] [address] [place] [address] * (ABNORMAL) Renal Function Panel (03/21/2024 2:21 PM EST) Pathologist [facility] Glucose 82 70 - 99 mg/dL [facility] BUN 39(H) 8 - 27 mg/dL [facility] Creatinine 2.06(H) 0.57 - 1.00 mg/dL [facility] eGFR CKD-EPI CR 2020 24(L) >59 mL/min/1.7 3 [facility] BUN/Creatinine Ratio 19 12 - 28 [facility] Sodium 141 134 - 144 mmol/L [facility] Potassium 4.3 3.5 - 5.2 mmol/L [facility] Chloride 102 96 - 106 mmol/L [facility] Bicarbonate (CO2) 23 20 - 29 mmol/L [facility] Calcium 9.8 8.7 - 10.3 mg/dL [facility] Albumin 4.6 3.8 - 4.8 g/dL [facility] Phosphorus 3.6 3.0 - 4.3 mg/dL [facility] Blood (Blood, Venous) 03/21/2024 2:21 PM EST 03/21/2024 us Cortes Rowe MD LAB BLOOD ORDERABLES Final Re sult [facility] [address] [place] [phone] from Last 3 Months Insurance [place] Care Teams Weather Reporter Relationship Specialty Start Date End Date Juan Jose Ellington NP [address] [place] [address] PCP - General 12/25/18
[2024-04-24 23:56] VITALS: BP 122/59; PULSE 62; RESP 12; TEMP 37.1; O2SAT 99
== END 2024-04-24 23:56 | disposition home or self-care (01) ==
PROVIDERS: Physician Assistant; Emergency Provider Emergency Medicine
DX: S60.211A Contusion of right wrist, initial encounter (principal); I48.91 Unspecified atrial fibrillation; I13.0 Hypertensive heart and chronic kidney disease with heart failure and stage 1 through stage 4 chronic kidney disease, or unspecified chronic kidney disease; N18.4 Chronic kidney disease, stage 4 (severe); I50.9 Heart failure, unspecified; J44.9 Chronic obstructive pulmonary disease, unspecified; Z79.01 Long term (current) use of anticoagulants; Z79.899 Other long term (current) drug therapy; Z99.81 Dependence on supplemental oxygen; X58.XXXA Exposure to other specified factors, initial encounter; Y93.9 Activity, unspecified; Y92.9 Unspecified place or not applicable; Y99.9 Unspecified external cause status
CPT/HCPCS: 36415; 73110; 73130; 80048; 80076; 85025; 85610; 85730; 99283

== ENCOUNTER → 2024-04-24 17:32 | Outpatient (BNV) | payer MEDICARE, MEDICAID, SELFPAY | PROVIDERS: Visit Provider Radiology Diagnostic Radiology | DX: R22.31 Localized swelling, mass and lump, right upper limb (principal) | CPT/HCPCS: 73110; 73130 ==

== ENCOUNTER 2024-04-29 12:39 | Outpatient (AMB) | payer MEDICARE, MEDICAID, SELFPAY ==
--- NOTE | 2024-04-29 12:41 | A.OFFPC_ITS ---
Vital Signs 04/29/24 12:42 Height 5 ft 1 in Weight 189 lb 2 oz BMI 35.7 BP 110/60 Blood Pressure Location Rt brachial Position Sitting Pulse 60 Pulse Source Pulse Oximeter Pulse Oximetry (%) 96 Intake Visit Reasons: HDF AK Failure Allergies Sulfa (Sulfonamide Antibiotics) [SULFA (SULFONAMIDE ANTIBIOTICS)] Allergy (Severe, Verified 04/29/24 12:42) RASH, Anaphylaxis Medication List - Last Reconciled 04/29/24 by BRENTON Guo-VAISHALI acetaminophen 325 mg PO QID PRN 7 days albuterol sulfate 90 mcg/actuation (Ventolin HFA) 2 puffs inhalation Q6H PRN amiodarone 100 mg (1/2 x 200 mg) PO DAILY 90 days apixaban (Eliquis) 5 mg PO BID cholecalciferol (vitamin D3) 50 mcg PO DAILY cranberry 1,000 mg PO DAILY jwyivuhqokg-wkschtulz-ezrffbyz 100-62.5-25 mcg (Trelegy Ellipta) 1 ea inhalation DAILY furosemide 20 mg PO DAILY hydroxyzine HCl 10 mg PO DAILY PRN lamotrigine 50 mg PO BEDTIME melatonin 10 mg PO BEDTIME metoprolol succinate ER 50 mg (2 x 25 mg) PO DAILY ofloxacin 0.3% 1 - 2 drps ophthalmic (eye) QID olanzapine 7.5 mg PO BEDTIME simvastatin 20 mg PO BEDTIME walker Standard walker, no wheels Tobacco use date assessed: 04/29/24 Fall risk assessment: No Falls in past year Last assessed Fall Risk: 04/29/24 Dental Screening Dental Screen Date: 04/29/24 Did you have a dental visit in the last 12 months?: Yes Did you have a dental problem in the last 6 months where you did not have access to dental care?: No Was dental information given to patient?: Patient has dentist HPI HDF AK Failure HPI Details Chief Complaint 77-year-old female presents for follow-u p care after recent hospital discharge due to hypoxic respiratory failure secondary to sepsis with pneumonia, and evaluation of a spontaneous hematoma on the right wrist History of Present Illness The patient is a 78-year-old female presenting with a follow-up consultation after hospital discharge for acute hypoxic respiratory failure secondary to sepsis with pneumonia. Her extended medical background includes coronary heart disease, microstenosis, chronic atrial fibrillation, COPD destabilized with a recent exacerbation, hypertension, hyperlipidemia, and heart failure with preserved ejection fraction. Significant findings during prior hospitalization included leukocytosis and elevated troponin. Imaging established diagnoses of bilat pneumonia with prolonged QT interval depicted on ECG. Treatment during hospitalization encompassed oxygen supplementation, antibiotics, and steroids, with temporary diuresis adjustment due to kidney function considerations. Pt's daughter reported increase in weight x 2 lbs in the last few days, with a increase in extrem edema. On April 24, The patient also reports a recent spontaneous hematoma at the right wrist, evident on recent emergency examination but otherwise asymptomatic from a pain perspective. NOTE: needs refills of briefs, bed pads, wipes, and gloves for urinary incont. Social History - The patient is currently using a wheel chair. - Reports recent two-pound weight gain. - No discussion regarding substance use or employment was noted. Health Maintenance Review of Systems - Respiratory: Denies fever or chills; d enies increase in shortness of breath beyond known baselines. - Musculoskeletal: Denies pain in the wr ist despite noticeable swelling and bruising. -denies any cp, increase in SOB, no n/v, denies any fevers or chills Physical Exam General: Cooperative, healthy appearing, comfortable, no acute distress and well developed Orientation: Patient oriented x3 Head: Normal to inspection Ears: Hearing grossly normal bilaterally Nose: Normal external nose present Face and sinus: Normal facial exam Eyes: Appearance normal, both eyes and all related structures Neck: Normal visual inspection and Yes full ROM Respiratory: Lungs with some coarse wheezes and some crackles to bilateral bases. Patient is currently on O2 at 2 liters, which she only uses with exertion or moving around. Cardiovascular: S1 S2, patient is currently in AFib. + radial pulse (right) GI: Normal to inspection. Soft to palpation and nontender Skin: Significant hematoma to the right radial, distal radial styloid process region, with ecchymosis noted to the dorsal hand, dorsal fingers, and running proximally into the wrist dorsal aspect and volar aspect. No tenderness noted. Neuro: Patient oriented x3, clear speech Extremities: Excessive swelling to her bilateral extremities. Positive hand grasp. Ulnar deviation and radial deviation noted without difficulty. Results - Labs: Elevated troponin levels; BMP 13 33; random glucose 237; leukocytosis noted. - Tests: ECG showed prolonged QT interva l without acute ischemic changes. - Imaging: X-ray of the right wrist isidro cating no fracture but presence of hematoma. Plan This multifaceted follow-up involves continued surveillance of the recent he matoma and coordination between cardiac and pulmonary specialties. A focus on her chronic diseases?atrial fibrillation, coronary disease, and COPD?is vital, along with nephrology follow-up given recent kidney involvement. Decision-making will emphasize balance and review based on specialist feedback. Immediate concerns such as rapid weight increase and hematoma resolution will rely on close observation, with regular updates from diagnostic results guiding further adjustments. follow up with nephrology this monday, pulmonary this monday. COntinue 20mg lasix x 4 days straight, then back to M, W, F dosing. Discussion Notes Discussed with the patient the exacerbation of her pneumonia and overall management strategies, including modifications to her discharge medications. The risks and benefits of her current medications such as beta blockers, amiodarone, and Eliquis were reviewed. Clarified the expected trajectory of the hematoma and emphasized the need for follow-up with her specialists. Guided the patient on recognizing warning signs of worsened edema and instructed her to report any rapid increase or additional symptoms. Patient Instructions - Continue prescribed medications as dir ected. - Monitor the right wrist hematoma daily ; anticipate resolution but seek care if it worsens or more swelling occurs. - Adhere to follow-up appointments with power project manager and coffee roaster helper. - Be aware of worsening shortness of jaren ath or other acute symptoms and seek immediate medical care if they arise. - Contact medical professional if experi encing any new or concerning symptoms. TCM TCM Information Date of Discharge 04/15/24 Discharged From [facility] Interactive Contact Date (Reference documentation from this date) 04/17/24 [facility] Medical History Paroxysmal atrial fibrillation Emphysema of lung Tardive dyskinesia Coarse tremors Hypersomnia Snoring SHARON (acute kidney injury) Mediastinal lymphadenopathy Atrial fibrillation Dyslipidemia Kidney disease Leukocytosis Necrotizing granulomatous inflammation of lung Bipolar 1 disorder Vitamin D deficiency COPD (chronic obstructive pulmonary disease) Sarcoidosis HTN (hypertension) [place] nephropathy Surgical History History of cardioversion History of bronchoscopy Family History Child No Financial Resp No problems noted. 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 1. Little interest or pleasure in doing things: more than half the days 2. Feeling down, depressed, or hopeless: nearly every day 3. Trouble falling or staying asleep, or sleeping too much: more than half the days 4. Feeling tired or having little energy: more than half the days 5. Poor appetite or overeating: more than half the days 6. Feeling bad about yourself - or that you are a failure or have let yourself or your family down: several days 7. Trouble concentrating on things, such as reading the newspaper or watching television: not at all 8. Moving or speaking so slowly that other people could have noticed. Or the opposite - being so fidgety or restless that you have been moving around a lot more than usual: not at all 9. Thoughts that you would be better off or of hurting yourself in some way: not at all Total score: 12 Depression Screening Interpretation: Positive (denies any si or hi) Depression Screening Follow-up: Existing condition and In treatment Depression Screening Done: Yes 14030 - PHQ-9 Billing: Yes Source: Developed by Drs. Torrey rPater, Rylee De Leon, Winston Gutierrez and colleagues, with an educational eli from [employer]. Thrive Questionnaire Date Thrive assessed: 04/29/24 I am a: Parent/Caregiver What is your living situation today?: I have a steady place to live Within the past 12 months, did the food you bought not last and you didn't have the money to get more?: Never true Within the past 12 months, did you worry whether your food would run out before you got money to buy more?: Never true Do you have trouble paying for medicines?: No Do you have trouble getting transportation to medical appointments?: No Do you have trouble paying your heating and electricity bill?: No Do you have trouble taking care of your child, family member or friend?: I choose not to answer this question Do you have trouble with day-to-day activities such as bathing, preparing meals, shopping, managing finances, etc.?: Yes Are you currently unemployed and looking for a job?: Yes Are you interested in more education?: No Please select the resources that you would like help with: None Currently or been in a relationship where the following occur: No concerns reported THRIVE Score: 0 AUDIT C Alcohol Use Questionnaire (AUDIT-C) 1. How often do you have a drink containing alcohol?: Never 3. How often do you have six or more drinks on one occasion?: Never Total Score: 0 Score Reviewed/Action Taken: Yes CANDY-7 AMB Questionnaire CANDY-7 Date CANDY - 7 assessed: 04/29/24 Feeling nervous, anxious, or on edge: 3 = Nearly every day Not being able to stop or control worryin = Nearly every day Worrying too much about different things: 3 = Nearly every day Trouble relaxin = Nearly every day Being so restless that it is hard to sit still: 1 = Several days Becoming easily annoyed or irritable: 2 = More than half the days Feeling afraid as if something awful might happen: 0 = Not at all Total CANDY-7 score (0-4 normal; 5-9 mild; 10-14 moderate; 15-21 severe): 15 Source: Developed by Drs. Torrey Prater, Rylee De Leon, Winston Gutierrez and colleagues, with an educational eli from [employer]. CANDY-7 Assessment Billing CANDY-7 Assessment Tool: CANDY-7 Assessment 23473 (denies any si or hi) Physical exam (Primary Care) Tobacco/Smoking Status: Tobacco use Status Tobacco use date assessed 04/29/24 04/29/24 12:43 Patient Tobacco Use Status Former Tobacco user 04/29/24 12:43 Tobacco use type Cigarette 04/29/24 12:43 e-Cigarette/Vaping Use Never Used 04/29/24 12:43 PHQ-9: PHQ-9 Score PHQ-9: Total score 12 04/29/24 12:43 Depression Screening Interpretation: Positive (denies any si or hi) Depression Screening Follow-up: Existing condition and In treatment Thrive Assessment: Date of Thrive Assessment Date Thrive assessed 04/29/24 04/29/24 12:43 Currently or been in a relationship where the following occur: No concerns reported Coding Level of Care Code Est Pt Level 4 (88196) Diagnoses SHARON (acute kidney injury) N17.9 Congestive heart failure I50.9 Bilateral pneumonia J18.9 Urinary incontinence R32 Hematoma T14.8XXA Additional Codes PHQ-9 - 41586 - PHQ-9 Billing: Yes ([id number]) CANDY-7 Assessment Billing - CANDY-7 Assessment Tool: CANDY-7 Assessment 96301 ([id number]) Assessment & Plan Assessment & Plan (1) SHARON (acute kidney injury): Code(s): N17.9 - Acute kidney failure, unspecified Category: Medical (2) Congestive heart failure: Code(s): I50.9 - Heart failure, unspecified Category: Medical (3) Bilateral pneumonia: Code(s): J18.9 - Pneumonia, unspecified organism Category: Medical (4) Urinary incontinence: Code(s): R32 - Unspecified urinary incontinence Category: Medical (5) Hematoma: Code(s): T14.8XXA - Other injury of unspecified body region, initial encounter Category: Medical Plan . Orders: Orders TSH reflex Free T4 Today I50.9 - Heart failure, unspecified, J18.9 - Pneumonia, unspecified organism, N17.9 - Acute kidney failure, unspecified B Type Natriuretic Peptide Today I50.9 - Heart failure, unspecified, J18.9 - Pneumonia, unspecified organism, N17.9 - Acute kidney failure, unspecified Magnesium Today I50.9 - Heart failure, unspecified, J18.9 - Pneumonia, unspecified organism, N17.9 - Acute kidney failure, unspecified, R32 - Unspecified urinary incontinence, T14.8XXA - Other injury of unspecified body region, initial encounter Complete Blood Count Auto Diff Today I50.9 - Heart failure, unspecified, J18.9 - Pneumonia, unspecified organism, N17.9 - Acute kidney failure, unspecified Comprehensive Mason. Panel Fast Today I50.9 - Heart failure, unspecified, J18.9 - Pneumonia, unspecified organism, N17.9 - Acute kidney failure, unspecified UA CC w/rflx Micro + Cult Today I50.9 - Heart failure, unspecified, J18.9 - Pneumonia, unspecified organism, N17.9 - Acute kidney failure, unspecified Lipid Panel Today I50.9 - Heart failure, unspecified, J18.9 - Pneumonia, unspecified organism, N17.9 - Acute kidney failure, unspecified Medications: New furosemide 20 mg PO DAILY 90 tabs 0RF
[2024-04-29 12:42] VITALS: BP 110/60; PULSE 60; O2SAT 96; BMI 35.7
--- OUTSIDE RECORDS SUMMARY | 2024-04-29 14:09 | XMS_ITS | Encounter Summary ---
Author Organization [facility] Address [address] [place] [address] Phone Care Team Providers Care Reservations Sales Supervisor Name Role Phone Juan Jose Ellington SERVICE OR WORK DISPATCHER CHIEF Primary Care Provider [phone] Encounter Details Date Type Department Care Team (Late Contact Info) Description 10/25/2023 Documentation Only [facility] [address] [place] [address] Tatyana Ritchie [address] [place] [address] Social History Tobacco Use Types [...] Visit [facility] [address] [place] [address] Cortes Rowe MD [address] [place] [address] [place] [address] documented as of this encounter Visit Diagnoses Not on filedocumented in this encounter Care Teams Reservations Sales Supervisor Relationship Specialty Start Date End Date Juan Jose Ellington NP 1961 [place] [address] PCP - General 12/25/18 documented as of this encounter
--- OUTSIDE RECORDS SUMMARY | 2024-04-29 14:09 | XMS_ITS | Encounter Summary ---
Author Organization [facility] Address [address] [place] [address] Phone Care Team Providers Care Clinical Resource Coordinator Name Role Phone Juan Jose Ellington ELECTRO OPTICAL ENGINEER Primary Care Provider [phone] Encounter Details Date Type Department Care Team (Late Contact Info) Description 10/25/2023 Documentation Only [facility] [address] [place] [address] Tatyana Ritchie [address] [place] [address] Social History Tobacco Use Types [...] Visit [facility] [address] [place] [address] Cortes Rowe MD [address] [place] [address] [place] [address] documented as of this encounter Visit Diagnoses Not on filedocumented in this encounter Care Teams Clinical Resource Coordinator Relationship Specialty Start Date End Date Juan Jose Ellington NP [address] [place] [address] PCP - General 12/25/18 documented as of this encounter
--- OUTSIDE RECORDS SUMMARY | 2024-04-29 14:09 | XMS_ITS | Encounter Summary ---
Author Organization [facility] Address [address] [place] [address] Phone Care Team Providers Care Ase Master Mechanic Name Role Phone Juan Jose Ellington SHIRT PRESSER Primary Care Provider [phone] Encounter Details Date Type Department Care Team (Late Contact Info) Description 03/19/2024 Documentation Only [facility] [address] [place] [address] Tatyana Ritchie [address] [place] [address] Social History Tobacco Use Types [...] Visit [facility] [address] [place] [address] Cortes Rowe MD [address] [place] [address] [place] [address] documented as of this encounter Visit Diagnoses Not on filedocumented in this encounter Care Teams Ase Master Mechanic Relationship Specialty Start Date End Date Juan Jose Ellington NP [address] [facility] [place] [address] PCP - General 12/25/18 documented as of this encounter
--- OUTSIDE RECORDS SUMMARY | 2024-04-29 14:09 | XMS_ITS | Clinical Summary ---
Author Organization [facility] [place], Address [address] [place] [address] [place] [address] Phone Care Team Providers Care Density Control Puncher Name Role Phone Juan Jose Ellington NP Primary Care Provider [phone] Allergies No known active allergies Medications albuterol [...] Only [facility] [place] [address] [place] [phone] Cortes Rowe MD 03/26/2024 Documentation Only [facility] [address] [place] [phone] Tatyana Ritchie 03/21/2024 1:30 PM EST Office Visit [facility] [address] [place] [phone] Cortes Rowe MD Stage 3b chronic kidney disease (HCC) (Primary Dx) 03/19/2024 Documentation Only [facility] [address] [place] [place] [phone] Tatyana Ritchie 03/19/2024 Documentation Only [facility] [address] [place] [address] Tatyana Ritchie from Last 3 Months Family [...] Visit [facility] [address] [place] [phone] Cortes Rowe MD [address] [place] [address] Health Maintenance Due Date Last Done [...] Urine 0-5 0 - 5 /hpf [facility] RBC, Urine None seen 0 - 2 /hpf [facility] Squamous Epithelial, Urine 0-10 0 - 10 /hpf [facility] Casts None seen None seen /lpf [facility] Bacteria, Urine None seen None seen/Few [facility] 03/26/2024 9:00 AM EST 03/26/2024 Cortes Rowe MD LAB MICROBIOLOGY - GENERAL OR DERABLES Final Result Performing Organization Address City/[facility]/ZIP Co de Phone Number [facility] [address] [place] [address] * Protein, Total, Random Urine w/Creatinine (Protein/Creat Ratio) (03/26/2024 9:00 AM EST) Creatinine, Ur 85.8 Not Estab. mg/dL [facility] Protein, Ur 7.3 Not Estab. mg/dL [facility] Urine Protein/Creatin ine Ratio 85 0 - 200 mg/g creat [facility] 03/26/2024 9:00 AM EST 03/26/2024 Cortes Rowe MD LAB URINE ORDERABLES Final Re sult Performing Organization Address City/[facility]/ZIP Co de Phone Number [facility] [address] [place] [address] * Urine Albumin / Creatinine Ratio (03/26/2024 9:00 AM EST) Albumin, Urine <3.0 Not Estab. ug/mL [facility] Albumin/Creatin ine Ratio <3 0 - 29 mg/g creat [facility] Comment: ? Normal: ?0 - ??29 ? Moderately increased: 30 - 300 ? Severely increased: ? >300 03/26/2024 9:00 AM EST 03/26/2024 us Cortes Rowe MD LAB URINE ORDERABLES Final Re sult [facility] [address] [place] [address] * (ABNORMAL) Urinalysis with microscopic (03/26/2024 9:00 AM EST) Specific [place], Urine 1.012 1.005 - 1.030 [facility] pH Urine 6.0 5.0 - 7.5 [facility] Color, Urine Yellow Yellow [facility] Appearance Urine Clear Clear [facility] WBC Esterase Urine Trace(A) Negative [facility] Protein, Ur Negative Negative/Tra ce [facility] Glucose, Ur Negative Negative [facility] Ketones, Urine Negative Negative [facility] Blood Urine Negative Negative [facility] Bilirubin Urine Negative Negative [facility] Urobilinogen Urine 0.2 0.2 - 1.0 mg/dL [facility] Nitrite, Urine Negative Negative [facility] [phone] Microscopic Examination See below: [facility] Comment:Microscopic was isidro cated and was performed. 03/26/2024 9:00 AM EST 03/26/2024 Cortes Rowe MD LAB URINE ORDERABLES Final Re sult Performing Organization Address [facility]/ZIP Co de Phone Number [facility] [address] [place] [address] * Iron Panel (Fe, TIBC, TSAT) (03/21/2024 2:21 PM EST) TIBC 374 250 - 450 ug/dL [facility] UIBC 281 118 - 369 ug/dL [facility] Iron 93 27 - 139 ug/dL [facility] Iron Saturation (TSat) 25 15 - 55 % [facility] Blood (Blood, Venous) 03/21/2024 2:21 PM EST 03/21/2024 Cortes Rowe MD LAB BLOOD ORDERABLES Final Re sult Performing Organization Address [facility] Co de Phone Number [facility] [address] [place] [address] * (ABNORMAL) Vitamin D 25 Hydroxy (03/21/2024 2:21 PM EST) Vitamin D, 25-OH, Total 29.6(L) 30.0 - 100.0 ng/mL [facility] Comment: Vitamin D deficiency has been defined by the [place] of [employer] and an Endocrine Society practice guideline as a level of serum 25-OH vitamin D less than 20 ng/mL (1,2). The Endocrine Society went on to further define vitamin D insufficiency as a level between 21 and 29 ng/mL (2). 1. IOM ([place] of [employer]). 2010. Dietary reference ?? intakes [...] Rowe MD LAB BLOOD ORDERABLES Final [facility] [address] [place] [address] * CBC and Differential (03/21/2024 2:21 PM [...] BLOOD ORDERABLES Final Re sult [facility] [address] [place] [address] * (ABNORMAL) PTH, Intact (03/21/2024 2:21 PM EST) PTH 87(H) 15 - 65 pg/mL [facility] Blood (Blood, Venous) 03/21/2024 2:21 PM EST 03/21/2024 Cortes Rowe MD LAB BLOOD ORDERABLES Final Re sult [facility] [address] [place] [address] * (ABNORMAL) Ferritin (03/21/2024 2:21 PM EST) Ferritin 181(H) 15 - 150 ng/mL [facility] Blood (Blood, Venous) 03/21/2024 2:21 PM EST 03/21/2024 us Cortes Rowe MD LAB BLOOD ORDERABLES Final Re sult [facility] [address] [place] [address] * (ABNORMAL) Renal Function Panel (03/21/2024 2:21 PM EST) Pathologist [facility] Glucose 82 70 - 99 mg/dL [facility] [...] ORDERABLES Final Re sult [facility] [address] [place] [phone] from Last 3 Months Insurance [place]ICAID [place] MEDICARE MEDICARE [place]ICAID [place] Care Teams Density Control Puncher Relationship Specialty Start Date End Date Juan Jose Ellington NP [address] [place] [address] PCP - General 12/25/18
--- OUTSIDE RECORDS SUMMARY | 2024-04-29 14:09 | XMS_ITS | Clinical Summary ---
Author Organization [facility] Address [address] [place] [address] Phone Care Team Providers Care Analyst Business Analysis Name Role Phone Juan Jose Ellington NP Primary Care Provider Allergies Active Allergy Reactions Criticality Noted Date Comments Sulfa (Sulfonamide Antibiotics) 07/25/2018 No reaction documented. Medications Trelegy Ellipta 100-62.5-25 mcg inhaler INHALE 1 PUFF INTO THE LUNGS DAILY FOR 30 DAYS. 60 each 11 4 Active acetaminophen (TYLENOL) 325 mg capsule Take by mouth. Activ e HYDROXYZINE HCL ORAL Take 10 mg by mouth daily. Active melatonin 10 mg tablet Melatonin 10 MG TABLET DISPERSIBLE Patient sig: Take by mouth. Active multivitamin/iro n/folic acid (CENTRUM ORAL) Take by mouth. Active amiodarone (PACERONE) 200 mg tablet Take 1 Tablet by mouth daily. Active apixaban (ELIQUIS) 5 mg tablet Take by mouth. Activ e furosemide (LASIX) 20 mg tablet Take 1 Tablet by mouth every other day. Mon,mon and monday Active lamoTRIgine (LaMICtal) 50 mg dispersible tablet Take by mouth at bedtime. Active metoprolol succinate (Kapspargo Sprinkle) 25 mg capsule,sprinkle ,ER 24hr Take by mouth. Activ e OLANZapine (ZyPREXA) 7.5 mg tablet Take 7.5 mg by mouth at bedtime. Active simvastatin (ZOCOR) 20 mg tablet Take 20 mg by mouth at bedtime. Active Ventolin HFA 90 mcg/actuation inhalerIndicatio ns:Emphysema, unspecified (CMS/HCC) INHALE 2 PUFFS INTO THE LUNGS EVERY 4 HOURS NEEDED FOR COUGH OR WHEEZING FOR UP TO 30 DAYS. 18 each 11 5 Active Active Problems Problem Noted Date Diagnosed Date Bipolar disorder 10/11/2018 COPD (chronic obstructive pulmonary disease) Hyperlipidemia 10/11/2018 Hypertension 10/11/2018 Pulmonary nodule 10/11/2018 Overview (04/12/2024): RUL-05/30/18 S/p VATS & wedge resection-no malignancy Sarcoidosis of lung 10/11/2018 Immunizations Name Administration Dates Next Due Moderna SARS-CoV-2 COVID-19, mRNA, LNP-S, preservative free 05/30/2020,05/02/2020 Surgical History Surgery Date Site/Laterality Comments OTHER SURGICAL HISTORY 04/27/2018 Right PROCEDURE: AR BRNCHSC INCL FLUOR GDNCE DX W/CELL WASHG SPX; COMMENT: negative malignancy TUBAL LIGATION PROCEDURE: HISTORICAL TUBAL LIGATION OTHER SURGICAL HISTORY 05/30/2018 Right PROCEDURE: AR BRONCHOSCOPY W/CPTR-ASST IMAGE-GUIDED NAVIGATION; COMMENT: da Arthur/VATS RUL wedge resection w/extensive pneumolysis OTHER SURGICAL HISTORY PROCEDURE: AR CARDIOVERSION ELECTIVE ARRHYTHMIA EXTERNAL Medical History Medical History Date Comments COPD (chronic obstructive pu lmonary disease) (CMS/HCC) 10/11/2018 DX:COPD (chronic obstructive pulmonary disease) (HCC) Sarcoidosis of lung (CMS/HCC) 10/11/2018 DX :Sarcoidosis of lung (HCC) Pulmonary nodule 10/11/2018 DX:Pulmonary no dule; COMMENT: RUL-05/30/18 S/p VATS & wedge resection-no malignancy Bipolar disorder (CMS/HCC) 10/11/2018 DX:Bi polar disorder (HCC) Hypertension 10/11/2018 DX:Hypertension Hyperlipidemia 10/11/2018 DX:Hyperlipidemi a SHARON (acute kidney injury) (CMS/HCC) DX:SHARON (acute kidney injury) (HCC) Atrial fibrillation (CMS/HCC) DX :Atrial fibrillation (HCC) Renal disease DX:Renal disease Leukocytosis DX:Leukocytosis Sun nephropathy DX:Sun n ephropathy Mediastinal lymphadenopathy DX:M ediastinal lymphadenopathy Necrotizing granulomatous inflammation of lung (CMS/HCC) DX:Necrotizing granulom atous inflammation of lung (HCC) Vitamin D deficiency DX:Vitamin D deficiency Family History Medical History Relation Name Comments Cervical cancer Daughter 1 Tatyana Scleroderma Daughter 2 Other: Substance use disorder Other Lymphoma Sister 1 Hodgkins Lymphoma Sister 2 non-Hodgkins Relation Name Status Comments Daughter 1 Tatyana Daughter 2 Other Sister 1 Sister 2 Social History Tobacco Use Types Packs/Day Years Used Date Smoking Tobacco: Former Cigarettes 1 53 0 02/20/1961 - 02/20/2014 Smokeless Tobacco: Never Alcohol Use Standard Drinks/Week Comments Never 0 (1 standard drink = 0.6 oz pur e alcohol) Comments Unknown Sex and Gender Information Value Date Recorded Sex Assigned at Not on file Legal Sex Female 11:10 PM EST Gender Identity Not on file Sexual Orientation Not on file Obstetrics History Last Filed Vital Signs Vital Sign Reading Time Taken Comments Blood Pressure 104/70 05/03/2023 9:26 AM EDT Sitting L Arm Pulse 60 05/03/2023 9:26 AM EDT Temperature - - Respiratory Rate - - Oxygen Saturation - - Inhaled Oxygen Concentration - - Weight 84.2 kg (185 lb 9.6 oz) 05/03/2023 9:26 AM EDT Height 154.9 cm (5' 1 ) 05/03/2023 9:26 AM EDT Body Mass Index 35.07 05/03/2023 9:26 AM EDT Plan of Treatment Upcoming Encounters Date Type Department Care Team (Late st Contact Info) Description 05/03/2024 9:00 AM EDT Office Visit Pulmonolgy - [place] [address] [facility] [address] [place] [phone] Sarah Breaux MD [address] [facility] [address] [place] [address] Health Maintenance Due Date Last Done Comments DTaP,Tdap,and Td Vaccines (1 - Tdap) 1964 Pneumococcal Vaccine: 50+ Years (1 of 2 - PCV) 1964 Zoster Vaccines (1 of 2) 11/12/1995 RSV Immunization Patients 60 + Years Old (1 - 1-dose 75+ series) 2020 Cholesterol Screening (Lipid Panel) 01/23/2022 Depression Screening 01/23/2022 Falls Risk Assessment 01/23/2022 Hepatitis C Screening 01/23/2022 Medicare Annual Wellness Visit 01/23/2022 Osteoporosis Screening (Bone Density Screening) 01/23/2022 Social Influencers of Health Screening 01/23/2022 Hypertension/CHF/CAD Annual BMP Blood Test 02/02/2022 COVID-19 Vaccine (3 - 2023-2 5 season) 2023 05/30/2020, 05/02/2020 Influenza Vaccine (#1) 2023 Lung Cancer Screening (Low Dose CT) 06/12/2024 06/13/2023, 06/12/2023, 04/19/2022 HIB Vaccines Aged Out No longer eligi ble based on patient's age to complete this topic HPV Vaccines Aged Out No longer eligi ble based on patient's age to complete this topic Hepatitis A Vaccines Aged Out No long er eligible based on patient's age to complete this topic Hepatitis B Vaccines Aged Out No long er eligible based on patient's age to complete this topic IPV Vaccines Aged Out No longer eligi ble based on patient's age to complete this topic MMR Vaccines Aged Out No longer eligi ble based on patient's age to complete this topic Meningococcal ACWY Vaccine Aged Out N o longer eligible based on patient's age to complete this topic Meningococcal B Vacine Aged Out No lo nger eligible based on patient's age to complete this topic RSV Immunization Patients Under 20 months Aged Out No longer eligible b ased on patient's age to complete this topic Varicella Vaccines Aged Out No longer eligible based on patient's age to complete this topic Procedures Procedure Name Priority Date/Time Associated Diagnosis Comments CT LUNG SCREENING LOW DOSE Routine 06/13/2023 3:45 PM EDT Encounter for screening for malignant neoplasm of respiratory organs from Last 3 Months or Most Recently Relevant to Health Maintenance Results * CT LUNG SCREENING LOW DOSE (06/13/2023 3:45 PM EDT) Anatomical Region Laterality Modality Computed Tomogra phy 06/12/2023 11:3 6 AM EDT Narrative 06/13/2023 3:45 PM EDT [facility] Diagnostic Imaging Department [address] [place] [address] [id number] Patient: ??NIKKI HURTADO ?/Age/Sex: 1945 - 77 - F Unit#: ??[id number] ? Location/Status: ??SPDICATLS/REG CLI ? Mnemonic/Ordering Site: ??CTLUNGLD/SPCT Ordering Physician: ??JOHANNA SU MD CT Lung Screening Low Dose - 06/12/23 - 1143 Report Status:Signed PROCEDURE: CT chest lung cancer screening low dose examination. INDICATION: CT lung screening. TECHNIQUE: Chest CT without intravenous contrast was performed. ??Low-dose examination was performed. ??Reformatted images were evaluated. COMPARISON: CT chest May 2022. ??CT chest March 2018 FINDINGS: NODULES: A groundglass appearing nodule is noted in the right upper lobe not present previously measuring 15 x 13 mm (series 3 image 77). LUNGS: Minimal emphysematous changes. ??Suture line is again noted involving the base of the right upper lobe. ??Minimal linear atelectasis at the left lung base. Very small left-sided effusion. OTHER: Limited views of the upper abdomen appear normal. ??Stable appearance of mildly prominent but nonspecific mediastinal lymph nodes. ??Atherosclerotic disease of the aorta without aneurysm. ??Mild coronary atherosclerotic disease is noted. ??Minimal degenerative changes in the thoracic spine. IMPRESSION: 1. ??Emphysematous disease with new groundglass nodule in the right upper chest. 2. ??Linear atelectasis at the left lung base and small left-sided pleural effusion. Lung-RADS 2. ??Follow up examination is advised in one year. Dictating Physician: ??EDGARD TORRES MD Electronically Signed by: ??EDGARD TORRES MD Dic Date/Time: ??06/13/23 1514 Sign date/Time: ??06/13/23 1541 Procedure Note Edgard Torres MD - 10/09/2023 [facility] Diagnostic Imaging Department [address] [place] [id number] Patient: CHARLESDARIANANIKKI /Age/Sex: 1945 - 77 - F Unit#: [id number] Location/Status: [facility] CLI Mnemonic/Ordering Site: [facility] Ordering Physician: JOHANNA SU MD CT Lung Screening Low Dose - 06/12/23 - 1143 Report Status:Signed PROCEDURE: CT chest lung cancer screening low dose examination. INDICATION: CT lung screening. TECHNIQUE: Chest CT without intravenous contrast was performed.Low-dose examination was performed. Reformatted images were evaluated. COMPARISON: CT chest May 2022. CT chest March 2018 FINDINGS: NODULES: A groundglass appearing nodule is noted in the right upper lobenot present previously measuring 15 x 13 mm (series 3 image 77). LUNGS: Minimal emphysematous changes. Suture line is again notedinvolving the base of the right upper lobe. Minimal linear atelectasis at the left lungbase. Very small left-sided effusion. OTHER: Limited views of the upper abdomen appear normal. Stableappearance of mildly prominent but nonspecific mediastinal lymph nodes.Atherosclerotic disease of the aorta without aneurysm. Mild coronary atheroscleroticdisease is noted. Minimal degenerative changes in the thoracic spine. IMPRESSION: 1. Emphysematous disease with new groundglass nodule in the right upperchest. 2. Linear atelectasis at the left lung base and small left-sidedpleural effusion. Lung-RADS 2. Follow up examination is advised in one year. Dictating Physician: EDGARD TORRES MD Electronically Signed by: EDGARD TORRES MD Dic Date/Time: 06/13/23 1514 Sign date/Time: 06/13/23 3808 Johanna Su MD IMG CT PROCEDURES Final Result from Last 3 Months or Most Recently Relevant to Health Maintenance Insurance MEDICARE MEDICAID - [place] Care Teams Analyst Business Analysis Relationship Specialty Start Date End Date Juan Jose Ellington NP [address] [place], [place] PCP - General 06/26/18
--- OUTSIDE RECORDS SUMMARY | 2024-04-29 14:09 | XMS_ITS | Encounter Summary ---
Author Organization [facility] Address [address] [place] [address] Phone Care Team Providers Care County Assessor Name Role Phone Juan Jose Ellington FISHER LOBSTER Primary Care Provider [phone] Encounter Details Date Type Department Care Team (Late Contact Info) Description 10/25/2023 Documentation Only [facility] [address] [place] [address] Tatyana Ritchie [address] [place] [address] Social History Tobacco Use Types [...] Visit [facility] [address] [place] [address] Cortes Rowe MD [address] [place] [address] [place] [address] documented as of this encounter Visit Diagnoses Not on filedocumented in this encounter Care Teams County Assessor Relationship Specialty Start Date End Date Juan Jose Ellington NP [address] [facility] [place] [address] PCP - General 12/25/18 documented as of this encounter
--- OUTSIDE RECORDS SUMMARY | 2024-04-29 14:09 | XMS_ITS | Encounter Summary ---
Author Organization [facility] Address [address] [place] [address] Phone Care Team Providers Care Transmission Worker Name Role Phone Juan Jose Ellington INDUSTRIAL REFRIGERATION MECHANIC Primary Care Provider [phone] Encounter Details Date Type Department Care Team (Late Contact Info) Description 10/12/2023 Documentation Only [facility] [address] [place] [address] Tatyana Ritchie [address] [place] [address] Social History Tobacco Use Types [...] Visit [facility] [address] [place] [address] Cortes Rowe MD [address] [place] [address] [place] [address] documented as of this encounter Visit Diagnoses Not on filedocumented in this encounter Care Teams Transmission Worker Relationship Specialty Start Date End Date Juan Jose Ellington NP [address] [facility] [place] [address] PCP - General 12/25/18 documented as of this encounter
--- OUTSIDE RECORDS SUMMARY | 2024-04-29 14:09 | XMS_ITS ---
Author Organization [facility] Care Team Providers Care Swimming Pool Plasterer Helper Name Role Phone Serafin Briones Unavailable Unavailable Tonja Tuttle Unavailable Unavailable Magda Chavez Unavailable Unavailable Allergies and adverse reactions Code CodeSystem Substance Reaction Severity StartDate Concern Status 256418245 SNOMED CT Sulfa Antibiotics Unknown 04/05/2021 active Care Team Name Role Address Phone Organization Dates Serafin Briones PCP [address], [address], [facility] (Office): : [facility] 04/23/2021 - 05/03/2021 Tonja Tuttle Attending Physician [address], [address], [place] (Office): : [facility] 04/23/2021 - 05/03/2021 Magda Chavez Attending Physician [address] [place] [address], [address], [facility] (Office): [facility] 04/23/2021 - 05/03/2021 Immunizations Immunization Status Vaccine Details Vaccine Code CodeSystem Roberto e Notes Influenza completed Influenza, split virus, trivalent, injectable, contains preservative 141 CVX created date: 04/05/2021 administered date: 02/20/2021 PCV13 (Pneumococcal Conjugate)Vaccine completed pneumococcal conjugate vaccine, 13 valent 133 CVX created date: 04/05/2021 administered date: 02/20/2021 SARS-COV-2 (COVID-19) completed SARS-COV-2 (COVID-19) vaccine, mRNA, spike protein, LNP, preservative free, 100 mcg/0.5mL dose or 50 mcg/0.25mL dose Step 1 of Multi-step with next step required 207 CVX created date: 04/30/2021 administered date: 01/21/2021 SARS-COV-2 (COVID-19) completed SARS-COV-2 (COVID-19) vaccine, mRNA, spike protein, LNP, preservative free, 100 mcg/0.5mL dose or 50 mcg/0.25mL dose Step 1 of Multi-step with next step required 207 CVX created date: 04/30/2021 administered date: 05/30/2020 SARS-COV-2 (COVID-19) completed SARS-COV-2 (COVID-19) vaccine, mRNA, spike protein, LNP, preservative free, 10 mcg/0.2mL dose, brandon-sucrose formulation Step 1 of Multi-step with next step required 218 CVX created date: 04/05/2021 administered date: 05/02/2020 Mental Status Section Date Assessment Total Score Description 05/03/2021 BIMS 15 cognitively int act CAM 0 No delirium ind icated PHQ-9 00 04/29/2021 BIMS 15 cognitively int act CAM 0 No delirium ind icated PHQ-9 00 Problems Problem # Description Date of onset Resolved Date Code CodeSystem Concern Status 1 ACUTE ON CHRONIC SYSTOLIC (CONGESTIVE) HEART FAILURE [address] active 2 CHRONIC OBSTRUCTIVE PULMONARY DISEASE WITH (ACUTE) EXACERBATION [address] active 3 MORBID (SEVERE) OBESITY DUE TO EXCESS CALORIES [address] active 4 MUSCLE WASTING AND ATROPHY, NOT ELSEWHERE CLASSIFIED, RIGHT SHOULDER [address] active 5 SCHIZOAFFECTIVE DISORDER, BIPOLAR TYPE [address] active 6 CHRONIC OBSTRUCTIVE PULMONARY DISEASE, UNSPECIFIED 2 04/23/[address] completed 7 PULMONARY FIBROSIS, UNSPECIFIED [address] active 8 ACUTE KIDNEY FAILURE, UNSPECIFIED 2 04/23/[address] completed 9 BIPOLAR DISORDER, CURRENT EPISODE MANIC SEVERE WITH PSYCHOTIC FEATURES [address] active 10 CHRONIC KIDNEY DISEASE, STAGE 3 UNSPECIFIED [address] active 11 ENCOUNTER FOR OBSERVATION FOR SUSPECTED EXPOSURE TO OTHER BIOLOGICAL AGENTS RULED OUT [address] active 12 ESSENTIAL (PRIMARY) HYPERTENSION [address] active 13 HYPERLIPIDEMIA, UNSPECIFIED [address] active 14 MUSCLE WASTING AND ATROPHY, NOT ELSEWHERE CLASSIFIED, RIGHT SHOULDER 2 04/23/[address] completed 15 NEPHROPATHY INDUCED BY UNSPECIFIED DRUG, MEDICAMENT OR BIOLOGICAL SUBSTANCE [address] active 16 PAROXYSMAL ATRIAL FIBRILLATION [address] active 17 SEPSIS DUE TO ESCHERICHIA COLI [E. COLI] [address] active 18 URINARY TRACT INFECTION, SITE NOT SPECIFIED [address] active 19 VITAMIN D DEFICIENCY, UNSPECIFIED [address] active Reason for Referral No Reasons for Referral Entered Social History Social History Observation Description Start Date End Date Code Code System Current Smoking Status Tobacco smoking consumption unknown 219196593 SNOMED CT Sex Assigned At Female 1945 [address]-4 [facility] Vital Signs Code Code System Vitals Name Values and Units Timing Information 9279-1 LOINC Respiratory Rate Value=18.0 Units=/m in 05/03/2021 8310-5 LOINC Body Temperature Value=97.3 Units=?? F 05/03/2021 61670-8 [facility] O2 % BldC Oximetry Value=98.0 Units= % 05/03/2021 8462-4 LOINC Blood Pressure-Diastolic Value=63 Un its=mmHg 05/03/2021 8480-6 LOINC Blood Pressure-Systolic Yhspg=934 Un its=mmHg 05/03/2021 8867-4 LOINC Heart rate Value=81.0 Units=/min 93618-3 LOINC Pain Level Value=0.0 05/03/2021 8302-2 LOINC Height Value=60.0 Units=Inches 04/23/2021 03837-1 LOINC Weight Xefpa=520.3 Units=Lbs 05/2021
--- OUTSIDE RECORDS SUMMARY | 2024-04-29 14:09 | XMS_ITS | Encounter Summary ---
Author Organization [facility] Address [address] [place] [address] Phone Care Team Providers Care Freight Claim Investigator Name Role Phone Juan Jose Ellington PIPING DESIGNER Primary Care Provider [phone] Encounter Details Date Type Department Care Team (Late Contact Info) Description 03/19/2024 Documentation Only [facility] [address] [place] [address] Tatyana Ritchie [address] [place] [address] Social History Tobacco Use Types [...] Visit [facility] [address] [place] [address] Cortes Rowe MD [address] [place] [address] [place] [address] documented as of this encounter Visit Diagnoses Not on filedocumented in this encounter Care Teams Freight Claim Investigator Relationship Specialty Start Date End Date Juan Jose Ellington NP [address] [facility] [place] [address] PCP - General 12/25/18 documented as of this encounter
--- OUTSIDE RECORDS SUMMARY | 2024-04-29 14:09 | XMS_ITS | Encounter Summary ---
Author Organization [facility] Address [address] [place] [address] Phone Care Team Providers Care Drawing Supervisor Name Role Phone Juan Jose Ellington OUTSIDE SALES ACCOUNT MANAGER Primary Care Provider [phone] Encounter Details Date Type Department Care Team (Late Contact Info) Description 03/26/2024 Documentation Only [facility] [address] [place] [address] Tatyana Ritchie [address] [place] [address] Social History Tobacco Use Types [...] Visit [facility] [address] [place] [address] Cortes Rowe MD [address] [place] [address] [place] [address] documented as of this encounter Visit Diagnoses Not on filedocumented in this encounter Care Teams Drawing Supervisor Relationship Specialty Start Date End Date Juan Jose Ellington NP [address] [place] [address] PCP - General 12/25/18 documented as of this encounter
== END 2024-04-29 14:40 | disposition home or self-care (01) ==
PROVIDERS: PCP Nurse Practitioner Family; Visit Provider Nurse Practitioner Family
DX: N17.9 Acute kidney failure, unspecified (principal); I50.9 Heart failure, unspecified; J18.9 Pneumonia, unspecified organism; R32 Unspecified urinary incontinence; T14.8XXA Other injury of unspecified body region, initial encounter

== ENCOUNTER → 2024-04-29 12:39 | Outpatient (BNVA) | payer MEDICARE, MEDICAID, SELFPAY | PROVIDERS: PCP Nurse Practitioner Family; Visit Provider Nurse Practitioner Family | DX: N17.9 Acute kidney failure, unspecified (principal); I50.9 Heart failure, unspecified; J18.9 Pneumonia, unspecified organism; R32 Unspecified urinary incontinence; T14.8XXD Other injury of unspecified body region, subsequent encounter | CPT/HCPCS: 96127; 99212 ==

== ENCOUNTER 2024-05-01 14:31 | Outpatient (AMB) | payer MEDICARE, MEDICAID, SELFPAY ==
--- NOTE | 2024-05-01 14:35 | HO.NEPHOV_ITS ---
Vital Signs 05/01/24 14:37 Height 5 ft 1 in Weight 188 lb 2 oz BMI 35.5 BP 100/50 L Blood Pressure Location Lt brachial Position Sitting Pulse 65 Pulse Source Pulse Oximeter Pulse Oximetry (%) 93 Oxygen Delivery Method Room Air Intake Visit Reasons: [facility] HFU per Cor[place] w/daughter Internet Site Designer Required: No Accompanied by: Daughter Allergies Sulfa (Sulfonamide Antibiotics) [SULFA (SULFONAMIDE ANTIBIOTICS)] Allergy (Severe, Verified 05/01/24 14:36) RASH, Anaphylaxis HPI Comments Details: 78 years old lady with PMH of HFpE on lasix 20 mg MWF, mitral stenosis, CKD 4, who recently presented to [facility] with shortness of breath with productive cough as well as chills. Work up in ED showed WBC 15.9, BNP level 1333 (above baseline) , random glucose 237. Flu/RSV/covid negative. CXR bibasilar pneumonia, ECG with no acute ischemic changes. She was admitted and treated for acute hypoxic respiratory failure with sepsis secondary to bibasilar pneumonia, COPD exacerbation and heart failure with preserved ejection fraction. She was started on oxygen, ceftriaxone and doxycycline as well as Solu-Medrol and breathing treatments. For the heart failure she was treated with IV Lasix but diuresis was held when she developed SHARON. Her creatinine has trended down to 2.36 prior to D/C. She was advised to continue her home dose of oral Lasix Monday, Monday and Monday. She is seen in follow up today. She was accompanied by her daughter. [facility] Medical History Paroxysmal atrial fibrillation Emphysema of lung Tardive dyskinesia Coarse tremors Hypersomnia Snoring SHARON (acute kidney injury) Mediastinal lymphadenopathy Atrial fibrillation Dyslipidemia Kidney disease Leukocytosis Necrotizing granulomatous inflammation of lung Bipolar 1 disorder Vitamin D deficiency COPD (chronic obstructive pulmonary disease) Sarcoidosis HTN (hypertension) Allenton nephropathy Surgical History History of cardioversion History of bronchoscopy Family History Child No Financial Resp No problems noted. 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 Current occupational exposures/hazards: No Cognitive needs: No Hearing needs: No Vision needs: Yes Review of Systems Const All systems reviewed & are unremarkable except as noted in HPI and below Physical Exam Vital Signs: Last Vital Signs Pulse 65 05/01/24 14:37 BP 100/50 L 05/01/24 14:37 Pulse Ox 93 05/01/24 14:37 Oxygen Delivery Method Room Air 05/01/24 14:37 BMI result Body Mass Index 35.5 Const General: no acute distress Orientation/consciousness: patient oriented x3 Eyes EOM: EOMs intact bilaterally Neck Neck: Yes supple Resp Auscultation: diminished lung sounds Cardio Rate: regular rate GI Palpation (GI): Soft to palpation Skin General skin exam: no rashes or lesions noted Neuro General: patient oriented x3 Extrem General: Yes no pedal edema Results Reviewed Nephrology Results: Hgb 13.3 g/dl (12.0-16.0) 04/24/24 WBC 14.7 X10*3/uL (4.8-10.8) H 04/24/24 Plt Count 243 X10*3/uL (160-400) 04/24/24 Sodium 140 mmol/L (135-145) 04/24/24 Potassium 4.1 mmol/L (3.3-5.1) 04/24/24 Chloride 109 mmol/L (96-108) H 04/24/24 Carbon Dioxide 24 mmol/L (22-29) 04/24/24 BUN 54 mg/dL (9-16) H 04/24/24 Creatinine 1.94 mg/dL (0.5-1.4) H 04/24/24 Calcium 8.9 mg/dL (8.4-10.2) 04/24/24 Assessment & Plan Assessment & Plan (1) CKD (chronic kidney disease) stage 4, GFR 15-29 ml/min: Code(s): N18.4 - Chronic kidney disease, stage 4 (severe) Category: Medical (2) HTN (hypertension): Code(s): I10 - Essential (primary) hypertension Category: Medical Qualifiers: Hypertension type: primary hypertension Qualified Code(s): I10 - Es sential (primary) hypertension Plan Has baseline CKD 3 B. Recently had SHARON on CKD 4 due to compromise in renal perfusion with resultant tubular injury-resolved Urine output good. Serum creatinine close to baseline; Volume status optimal Not close to renal replacement. C/W rest of current management for now; Labs/FU; All questions answered Orders: Orders Creatinine 3 Months N18.4 - Chronic kidney disease, stage 4 (severe) Parathyroid Hormone Intact 3 Months N18.4 - Chronic kidney disease, stage 4 (severe) Ferritin 3 Months N18.4 - Chronic kidney disease, stage 4 (severe) Blood Urea Nitrogen 3 Months N18.4 - Chronic kidney disease, stage 4 (severe) Electrolytes 3 Months N18.4 - Chronic kidney disease, stage 4 (severe) Calcium 3 Months N18.4 - Chronic kidney disease, stage 4 (severe) Vitamin D 25-OH Total 3 Months N18.4 - Chronic kidney disease, stage 4 (severe) IRON PROFILE 3 Months N18.4 - Chronic kidney disease, stage 4 (severe) Coding Level of Care Code Est Pt Level 4 (49079) Diagnoses CKD (chronic kidney disease) stage 4, GFR 15-29 ml/min N18.4 Primary hypertension I10 Hypertension type: primary hypertension
[2024-05-01 14:37] VITALS: BP 100/50; PULSE 65; O2SAT 93; BMI 35.5
--- OUTSIDE RECORDS SUMMARY | 2024-05-01 17:11 | XMS_ITS | Encounter Summary ---
Author Organization [facility] Address [address] [place] [address] Phone Care Team Providers Care Shoe Puller Name Role Phone Juan Jose Ellington TAXI DANCER Primary Care Provider [phone] Encounter Details Date Type Department Care Team (Late Contact Info) Description 03/19/2024 Documentation Only [facility] [address] [place] [address] Tatyana Ritchie [address] [place] [address] Social History Tobacco Use Types [...] [facility] [address] [place] [address] Cortes Rowe MD [address] [place] [address] [place] [address] documented as of this encounter Visit Diagnoses Not on filedocumented in this encounter Care Teams Shoe Puller Relationship Specialty Start Date End Date Juan Jose Ellington NP [address] [facility] [place] [address] PCP - General 12/25/18 documented as of this encounter
--- OUTSIDE RECORDS SUMMARY | 2024-05-01 17:11 | XMS_ITS | Encounter Summary ---
Author Organization [facility] Address [address] [place] [address] Phone Care Team Providers Care Public Relations Supervisor Name Role Phone Juan Jose Ellington ASSISTED LIVING NURSING DIRECTOR Primary Care Provider [phone] Encounter Details Date Type Department Care Team (Late Contact Info) Description 10/25/2023 Documentation Only [facility] [address] [place] [place] [address] Tatyana Ritchie [address] [place] [address] Social History Tobacco Use Types [...] [facility] [address] [place] [place] [address] Cortes Rowe MD [address] [place] [address] [place] [address] documented as of this encounter Visit Diagnoses Not on filedocumented in this encounter Care Teams Public Relations Supervisor Relationship Specialty Start Date End Date Juan Jose Ellington NP [address] [facility] [place] [address] PCP - General 12/25/18 documented as of this encounter
--- OUTSIDE RECORDS SUMMARY | 2024-05-01 17:11 | XMS_ITS | Encounter Summary ---
Author Organization [facility] Address [address] [place] [address] Phone Care Team Providers Care Representative Phlebotomy Services Name Role Phone Juan Jose Ellington MILL REPRESENTATIVE Primary Care Provider [phone] Encounter Details Date Type Department Care Team (Late Contact Info) Description 03/19/2024 Documentation Only [facility] [address] [place] [address] Tatyana Ritchie [address] [place] [address] Social History Tobacco Use Types [...] Visit [facility] [address] [place] [address] Cortes Rowe MD [address] [place] [address] [place] [address] documented as of this encounter Visit Diagnoses Not on filedocumented in this encounter Care Teams Representative Phlebotomy Services Relationship Specialty Start Date End Date Juan Jose Ellington NP [address] [place] [address] PCP - General 12/25/18 documented as of this encounter
--- OUTSIDE RECORDS SUMMARY | 2024-05-01 17:11 | XMS_ITS | Encounter Summary ---
Author Organization [facility] Address [address] [place] [address] Phone Care Team Providers Care Outpatient Receptionist Name Role Phone Juan Jose Ellington DULITE MACHINE BLUER Primary Care Provider [phone] Encounter Details Date Type Department Care Team (Late Contact Info) Description 03/26/2024 Documentation Only [facility] [address] [place] [address] Tatyana Ritchie [address] [place] [address] Social History Tobacco Use Types [...] Visit [facility] [address] [place] [address] Cortes Rowe MD [address] [place] [address] [place] [address] documented as of this encounter Visit Diagnoses Not on filedocumented in this encounter Care Teams Outpatient Receptionist Relationship Specialty Start Date End Date Juan Jose Ellington NP [address] [place] [address] PCP - General 12/25/18 documented as of this encounter
--- OUTSIDE RECORDS SUMMARY | 2024-05-01 17:11 | XMS_ITS | Encounter Summary ---
Author Organization [facility] Address [address] [place] [address] Phone Care Team Providers Care Flight Hostess Name Role Phone Juan Jose Ellington TUMBLING BARREL PAINTER Primary Care Provider [phone] Encounter Details Date Type Department Care Team (Late Contact Info) Description 10/25/2023 Documentation Only [facility] [address] [place] [address] Tatyana Ritchie [address] [place] [address] Social History Tobacco Use Types [...] Visit [facility] [address] [place] [address] Cortes Rowe MD [address] [place] [address] [place] [address] documented as of this encounter Visit Diagnoses Not on filedocumented in this encounter Care Teams Flight Hostess Relationship Specialty Start Date End Date Juan Jose Ellington NP [address] [place] [address] PCP - General 12/25/18 documented as of this encounter
--- OUTSIDE RECORDS SUMMARY | 2024-05-01 17:11 | XMS_ITS ---
Author Organization [facility] Care Team Providers Care Certified Legal Investigator Name Role Phone Serafin Briones Unavailable Unavailable Tonja Tuttle Unavailable Unavailable Magda Chavez Unavailable Unavailable Allergies and adverse reactions Code CodeSystem Substance Reaction Severity StartDate Concern Status 259413620 SNOMED CT Sulfa Antibiotics Unknown 04/05/2021 active Care Team Name Role Address Phone Organization Dates Serafin Briones PCP [address], [address], [facility] (Office): : [facility] 04/23/2021 - 05/03/2021 Tonja Tuttle Attending Physician [address], [address], [place] (Office): : [facility] 04/23/2021 - 05/03/2021 Magda Chavez Attending Physician [address] [place] [address], [address], [facility] (Office): [facility] 04/23/2021 - 05/03/2021 Immunizations Immunization Status [...] ON CHRONIC SYSTOLIC (CONGESTIVE) HEART FAILURE [address] active 2 CHRONIC OBSTRUCTIVE PULMONARY DISEASE WITH (ACUTE) EXACERBATION [address] active 3 MORBID (SEVERE) OBESITY DUE TO EXCESS CALORIES [address] active 4 MUSCLE WASTING AND ATROPHY, NOT ELSEWHERE CLASSIFIED, RIGHT SHOULDER [address] active 5 SCHIZOAFFECTIVE DISORDER, BIPOLAR TYPE [address] active 6 CHRONIC OBSTRUCTIVE PULMONARY DISEASE, UNSPECIFIED 2 04/23/[address] completed 7 PULMONARY FIBROSIS, UNSPECIFIED [address] active 8 ACUTE KIDNEY FAILURE, UNSPECIFIED 2 04/23/[address] completed 9 BIPOLAR DISORDER, CURRENT EPISODE MANIC SEVERE WITH PSYCHOTIC FEATURES [address] active 10 CHRONIC KIDNEY DISEASE, STAGE 3 UNSPECIFIED [address] active 11 ENCOUNTER FOR OBSERVATION FOR SUSPECTED EXPOSURE TO OTHER BIOLOGICAL AGENTS RULED OUT [address] active 12 ESSENTIAL (PRIMARY) HYPERTENSION [address] active 13 HYPERLIPIDEMIA, UNSPECIFIED [address] active 14 MUSCLE WASTING AND ATROPHY, NOT ELSEWHERE CLASSIFIED, RIGHT SHOULDER 2 04/23/[address] completed 15 NEPHROPATHY INDUCED BY UNSPECIFIED DRUG, MEDICAMENT OR BIOLOGICAL SUBSTANCE [address] active 16 PAROXYSMAL ATRIAL FIBRILLATION [address] active 17 SEPSIS DUE TO ESCHERICHIA COLI [E. COLI] [address] active 18 URINARY TRACT INFECTION, SITE NOT SPECIFIED [address] active 19 VITAMIN D DEFICIENCY, UNSPECIFIED [address] active Reason for Referral No Reasons for Referral Entered Social History Social History Observation Description Start Date End Date Code Code System Current Smoking Status Tobacco smoking consumption unknown 705531996 SNOMED CT Sex Assigned At Female 1945 [address]-1 [facility] Vital Signs Code Code System Vitals Name Values and Units Timing Information 9279-1 LOINC Respiratory Rate Value=18.0 Units=/m in 05/03/2021 8310-5 LOINC Body Temperature Value=97.3 Units=?? F 05/03/2021 33[address]-5 [facility] O2 % BldC Oximetry Value=98.0 Units= % 05/03/2021 8462-4 LOINC Blood Pressure-Diastolic Value=63 Un its=mmHg 05/03/2021 8480-6 LOINC Blood Pressure-Systolic Bpmbq=753 Un its=mmHg 05/03/2021 8867-4 LOINC Heart rate Value=81.0 Units=/min 09827-2 LOINC Pain Level Value=0.0 05/03/2021 8302-2 LOINC Height Value=60.0 Units=Inches 04/23/2021 60970-1 LOINC Weight Sqorz=357.3 Units=Lbs 05/2021
--- OUTSIDE RECORDS SUMMARY | 2024-05-01 17:11 | XMS_ITS | Encounter Summary ---
Author Organization [facility] Address [address] [place] [address] Phone Care Team Providers Care Parcel Post Carrier Name Role Phone Juan Jose Ellington SYSTEMS REQUIREMENTS PLANNER Primary Care Provider [phone] Encounter Details Date Type Department Care Team (Late Contact Info) Description 10/25/2023 Documentation Only [facility] [address] [place] [address] Tatyana Ritchie [address] [place] [address] Social History Tobacco Use Types [...] Visit [facility] [address] [place] [address] Cortes Rowe MD [address] [place] [address] [place] [address] documented as of this encounter Visit Diagnoses Not on filedocumented in this encounter Care Teams Parcel Post Carrier Relationship Specialty Start Date End Date Juan Jose Ellington NP [address] [facility] [place] [address] PCP - General 12/25/18 documented as of this encounter
--- OUTSIDE RECORDS SUMMARY | 2024-05-01 17:11 | XMS_ITS | Clinical Summary ---
Author Organization [facility] [place], Address [address] [place] [address] [place] [address] Phone Care Team Providers Care Knowledge Analyst Name Role Phone Juan Jose Ellington NP Primary Care Provider [phone] Allergies No known active allergies Medications albuterol [...] Only [facility] [place] [address] [place] [phone] Cortes Rowe MD 03/26/2024 Documentation Only [facility] [address] [place] [phone] Tatyana Ritchie 03/21/2024 1:30 PM EST Office Visit [facility] [address] [place] [phone] Cortes Rowe MD Stage 3b chronic kidney disease (HCC) (Primary Dx) 03/19/2024 Documentation Only [facility] [address] [place] [phone] Tatyana Ritchie 03/19/2024 Documentation Only [facility] [address] [place] [address] Tatyana Ritchie from Last 3 Months Family [...] [facility] [address] [place] [phone] Cortes Rowe MD [address] [place] [address] Health Maintenance Due Date Last Done [...] Urine 0-5 0 - 5 /hpf [facility] RBC, Urine None seen 0 - 2 /hpf [facility] Squamous Epithelial, Urine 0-10 0 - 10 /hpf [facility] Casts None seen None seen /lpf [facility] Bacteria, Urine None seen None seen/Few [facility] 03/26/2024 9:00 AM EST 03/26/2024 Cortes Rowe MD LAB MICROBIOLOGY - GENERAL OR DERABLES Final Result Performing Organization Address City/[facility]/ZIP Co de Phone Number [facility] [address] [place] [address] * Protein, Total, Random Urine w/Creatinine (Protein/Creat Ratio) (03/26/2024 9:00 AM EST) Creatinine, Ur 85.8 Not Estab. mg/dL [facility] Protein, Ur 7.3 Not Estab. mg/dL [facility] Urine Protein/Creatin ine Ratio 85 0 - 200 mg/g creat [facility] 03/26/2024 9:00 AM EST 03/26/2024 Cortes Rowe MD LAB URINE ORDERABLES Final Re sult Performing Organization Address City/[facility]/ZIP Co de Phone Number [facility] [place] [address] [place] [address] * Urine Albumin / Creatinine Ratio (03/26/2024 9:00 AM EST) Albumin, Urine <3.0 Not Estab. ug/mL [facility] Albumin/Creatin ine Ratio <3 0 - 29 mg/g creat [facility] Comment: ? Normal: ?0 - ??29 ? Moderately increased: 30 - 300 ? Severely increased: ? >300 03/26/2024 9:00 AM EST 03/26/2024 us Cortes Rowe MD LAB URINE ORDERABLES Final Re sult [facility] [address] [place] [address] * (ABNORMAL) Urinalysis with microscopic (03/26/2024 9:00 AM EST) Specific Clark, Urine 1.012 1.005 - 1.030 [facility] pH Urine 6.0 5.0 - 7.5 [facility] Color, Urine Yellow Yellow [facility] Appearance Urine Clear Clear [facility] [place] [phone] WBC Esterase Urine Trace(A) Negative [facility] [phone] Protein, Ur Negative Negative/Tra ce [facility] Glucose, Ur Negative Negative [facility] Ketones, Urine Negative Negative [facility] [place] Blood Urine Negative Negative [facility] [phone] Bilirubin Urine Negative Negative [facility] [place] Urobilinogen Urine 0.2 0.2 - 1.0 mg/dL [facility] Nitrite, Urine Negative Negative [facility] [place] Microscopic Examination See below: [facility] Comment:Microscopic was isidro cated and was performed. 03/26/2024 9:00 AM EST 03/26/2024 Cortes Rowe MD LAB URINE ORDERABLES Final Re sult Performing Organization Address [facility]/ZIP Co de Phone Number [facility] [place] [address] [place] [address] * Iron Panel (Fe, TIBC, TSAT) (03/21/2024 2:21 PM EST) TIBC 374 250 - 450 ug/dL [facility] UIBC 281 118 - 369 ug/dL [facility] Iron 93 27 - 139 ug/dL [facility] Iron Saturation (TSat) 25 15 - 55 % [facility] Blood (Blood, Venous) 03/21/2024 2:21 PM EST 03/21/2024 Cortes Rowe MD LAB BLOOD ORDERABLES Final Re sult Performing Organization Address [facility] Co de Phone Number [facility] [place] [address] [place] [address] * (ABNORMAL) Vitamin D 25 Hydroxy (03/21/2024 2:21 PM EST) Vitamin D, 25-OH, Total 29.6(L) 30.0 - 100.0 ng/mL [facility] Comment: Vitamin D deficiency has been defined by the [place] of [employer] and an Endocrine Society practice guideline as a level of serum 25-OH vitamin D less than 20 ng/mL (1,2). The Endocrine Society went on to further define vitamin D insufficiency as a level between 21 and 29 ng/mL (2). 1. IOM ([place] of [employer]). 2010. Dietary reference ?? intakes [...] Rowe MD LAB BLOOD ORDERABLES [facility] [address] [place] [address] * CBC and Differential (03/21/2024 2:21 PM EST) WBC 8.2 3.4 - 10.8 x10E3/uL [facility] RBC 4.28 3.77 - 5.28 x10E6/uL [facility] Hemoglobin 13.5 11.1 - 15.9 g/dL [facility] Hematocrit 40.5 34.0 - 46.6 % [facility] MCV 95 79 - 97 fL [facility] MCH 31.5 26.6 - 33.0 pg [facility] MCHC 33.3 31.5 - 35.7 g/dL [facility] RDW 12.9 11.7 - 15.4 % [facility] Platelets 246 150 - 450 x10E3/uL [facility] Neutrophils Relative 70 Not Estab. % [facility] Lymphocytes Relative 13 Not Estab. % [facility] Monocytes 10 Not Estab. % [facility] Eosinophils Relative 5 Not Estab. % [facility] Basophils Relative 1 Not Estab. % [facility] Neutrophils Absolute 5.8 1.4 - 7.0 x10E3/uL [facility] Lymphocytes Absolute 1.1 0.7 - 3.1 x10E3/uL [facility] Monocytes Absolute 0.8 0.1 - 0.9 x10E3/uL [facility] Eosinophils Absolute 0.4 0.0 - 0.4 x10E3/uL [facility] Basophils Absolute 0.1 0.0 - 0.2 x10E3/uL [facility] Immature Granulocytes 1 Not Estab. % [facility] Immature Grans (Absolute) 0.1 0.0 - 0.1 x10E3/uL [facility] Blood (Blood, Venous) 03/21/2024 2:21 PM EST 03/21/2024 Cortes Rowe MD LAB BLOOD ORDERABLES Final Re sult [facility] [address] [place] [address] * (ABNORMAL) PTH, Intact (03/21/2024 2:21 PM EST) PTH 87(H) 15 - 65 pg/mL [facility] Blood (Blood, Venous) 03/21/2024 2:21 PM EST 03/21/2024 Cortes Rowe MD LAB BLOOD ORDERABLES Final Re sult [facility] [address] [place] [address] * (ABNORMAL) Ferritin (03/21/2024 2:21 PM EST) Ferritin 181(H) 15 - 150 ng/mL [facility] Blood (Blood, Venous) 03/21/2024 2:21 PM EST 03/21/2024 us Cortes Rowe MD LAB BLOOD ORDERABLES Final Re sult [facility] [address] [place] [address] * (ABNORMAL) Renal Function Panel (03/21/2024 2:21 PM EST) Pathologist [facility] Glucose 82 70 - 99 mg/dL [facility] BUN 39(H) 8 - 27 mg/dL [facility] Creatinine 2.06(H) 0.57 - 1.00 mg/dL [facility] eGFR CKD-EPI CR 2020 24(L) >59 mL/min/1.7 3 [facility] BUN/Creatinine Ratio 19 12 - 28 [facility] Sodium 141 134 - 144 mmol/L [facility] Potassium 4.3 3.5 - 5.2 mmol/L [facility] Chloride 102 96 - 106 mmol/L [facility] Bicarbonate (CO2) 23 20 - 29 mmol/L [facility] Calcium 9.8 8.7 - 10.3 mg/dL [facility] Albumin 4.6 3.8 - 4.8 g/dL [facility] Phosphorus 3.6 3.0 - 4.3 mg/dL [facility] Blood (Blood, Venous) 03/21/2024 2:21 PM EST 03/21/2024 us Cortes Rowe MD LAB BLOOD ORDERABLES Final Re sult [facility] [address] [place] [phone] from Last 3 Months Insurance [place] Care Teams Knowledge Analyst Relationship Specialty Start Date End Date Juan Jose Ellington NP [address] [place] [address] PCP - General 12/25/18
--- OUTSIDE RECORDS SUMMARY | 2024-05-01 17:11 | XMS_ITS | Encounter Summary ---
Author Organization [facility] Address [address] [place] [address] Phone Care Team Providers Care Business Applications Specialist Name Role Phone Juan Jose Ellington CUSTOMER SPECIALIST Primary Care Provider [phone] Encounter Details Date Type Department Care Team (Late Contact Info) Description 10/12/2023 Documentation Only [facility] [address] [place] [address] Tatyana Ritchie [address] [place] [address] Social History Tobacco Use Types [...] Visit [facility] [address] [place] [address] Cortes Rowe MD [address] [place] [address] [place] [address] documented as of this encounter Visit Diagnoses Not on filedocumented in this encounter Care Teams Business Applications Specialist Relationship Specialty Start Date End Date Juan Jose Ellington NP [address] [place] [address] PCP - General 12/25/18 documented as of this encounter
--- OUTSIDE RECORDS SUMMARY | 2024-05-01 17:11 | XMS_ITS | Clinical Summary ---
Author Organization [address] [facility] Address [address] [place] [address] Phone Care Team Providers Care Business Operations Manager Name Role Phone Juan Jose Ellington NP [...] Comments OTHER SURGICAL HISTORY 04/27/2018 Right PROCEDURE: TN BRNCHSC INCL FLUOR GDNCE DX W/CELL WASHG SPX; COMMENT: negative malignancy TUBAL LIGATION PROCEDURE: HISTORICAL TUBAL LIGATION OTHER SURGICAL HISTORY 05/30/2018 Right PROCEDURE: TN BRONCHOSCOPY W/CPTR-ASST IMAGE-GUIDED NAVIGATION; COMMENT: da Arthur/VATS RUL wedge resection w/extensive pneumolysis OTHER SURGICAL HISTORY PROCEDURE: TN CARDIOVERSION ELECTIVE ARRHYTHMIA EXTERNAL Medical History Medical [...] (HCC) Renal disease DX:Renal disease Leukocytosis DX:Leukocytosis [place] nephropathy DX:[place] n ephropathy Mediastinal lymphadenopathy DX:M ediastinal lymphadenopathy [...] 9:00 AM EDT Office Visit Pulmonolgy - [place] [address] [facility] [address] [place] [phone] Sarah Breaux MD [address] [facility] [address] [place] [address] Health Maintenance Due Date Last Done Comments [...] AM EDT Narrative 06/13/2023 3:45 PM EDT [facility] Diagnostic Imaging Department [address] [place] [address] [id number] Patient: ??NIKKI HURTADO ?/Age/Sex: 1945 - 77 - F Unit#: ??[id number] ? Location/Status: ??SPDICATLS/REG CLI ? Mnemonic/Ordering Site: [...] Dic Date/Time: ??06/13/23 1514 Sign date/Time: ??06/13/23 1549 Procedure Note Edgard Torres MD - 10/09/2023 [facility] Diagnostic Imaging Department [address] [place] [address] Patient: CHARLESDARIANANIKKI /Age/Sex: 1945 - 77 - F Unit#: [id number] Location/Status: [facility] CLI Mnemonic/Ordering Site: [facility] Ordering Physician: JOHANNA SU MD CT [...] Dic Date/Time: 06/13/23 1514 Sign date/Time: 06/13/23 [id number] Johanna Su MD IMG CT PROCEDURES Final Result from Last 3 Months or Most Recently Relevant to Health Maintenance Insurance MEDICARE MEDICAID - [place] Care Teams Business Operations Manager Relationship Specialty Start Date End Date Juan Jose Ellington NP [address] [place], [place] PCP - General 06/26/18
== END 2024-05-01 14:58 | disposition home or self-care (01) ==
LOC: HO.HKA 14:32
PROVIDERS: PCP Nurse Practitioner Family; Visit Provider Internal Medicine Nephrology
DX: I12.9 Hypertensive chronic kidney disease with stage 1 through stage 4 chronic kidney disease, or unspecified chronic kidney disease (principal); N18.4 Chronic kidney disease, stage 4 (severe)
CPT/HCPCS: 99214

== ENCOUNTER → 2024-05-01 14:31 | Outpatient (BNVA) | payer MEDICARE, MEDICAID, SELFPAY | PROVIDERS: PCP Nurse Practitioner Family; Visit Provider Internal Medicine Nephrology | DX: I12.9 Hypertensive chronic kidney disease with stage 1 through stage 4 chronic kidney disease, or unspecified chronic kidney disease (principal); N18.4 Chronic kidney disease, stage 4 (severe) | CPT/HCPCS: 99212 ==

== ENCOUNTER 2024-05-04 09:05 | Outpatient (REF) | payer MEDICARE, MEDICAID, SELFPAY ==
--- OUTSIDE RECORDS SUMMARY | 2024-05-04 09:08 | XMS_ITS | Encounter Summary ---
Author Organization [facility] Address [address] [place] [address] Care Team Providers Care Belt Turner Name Role Phone Juan Jose Ellington INTERNET MARKETING ANALYST Primary Care Provider [phone] Encounter Details Date Type Department Care Team (Latest Contact Info) Description 05/03/2024 10:10 AM EDT - 05/03/2024 11:59 PM EDT Hospital Encounter XRAY - [place] [address] [place] [address] Chronic obstructive pulmonary disease, unspecified COPD type (CMS/HCC); Sarcoidosis of lung (CMS/HCC) Discharge Disposition: Home or Self Care Social History Tobacco Use Types Packs/Day Years [...] on file documented as of this encounter Medications at Time of Discharge acetaminophen (TYLENOL) 325 mg capsule Take by mouth. albuterol 2.5 mg /3 mL (0.083 %) nebulizer solutionIndicatio ns:Chronic obstructive pulmonary disease, unspecified COPD type (CMS/HCC) Take 3 mL (2.5 mg total) by nebulization every 6 (six) hours if needed for wheezing. 300 mL 2 05/03/2024 amiodarone (PACERONE) 200 mg tablet Take 1 Tablet by mouth daily. apixaban (ELIQUIS) 5 mg tablet Take by mouth. furosemide (LASIX) 20 mg tablet Take 1 Tablet by mouth every other day. Mon,mon and monday HYDROXYZINE HCL ORAL Take 10 mg by mouth daily. lamoTRIgine (LaMICtal) 50 mg dispersible tablet Take by mouth at bedtime. melatonin 10 mg tablet Melatonin 10 MG TABLET DISPERSIBLE Patient sig: Take by mouth. metoprolol succinate (Kapspargo Sprinkle) 25 mg capsule,sprinkle, ER 24hr Take by mouth. multivitamin/iron /folic acid (CENTRUM ORAL) Take by mouth. OLANZapine (ZyPREXA) 7.5 mg tablet Take 7.5 mg by mouth at bedtime. Oxygen Therapy via Nasal Cannula (O2) gas Inhale 2 L/min by mouth continuously. via nasal canula on exertion 04/11/2024 simvastatin (ZOCOR) 20 mg tablet Take 20 mg by mouth at bedtime. Trelegy Ellipta 100-62.5-25 mcg inhaler INHALE 1 PUFF INTO THE LUNGS DAILY FOR 30 DAYS. 60 each 01/04/2024 Ventolin HFA 90 mcg/actuation inhalerIndication s:Emphysema, unspecified (CMS/HCC) INHALE 2 PUFFS INTO THE LUNGS EVERY 4 HOURS NEEDED FOR COUGH OR WHEEZING FOR UP TO 30 DAYS. 18 each 04/16/2024 documented as of this encounter Discharge Disposition Disposition Code Departure Means Destination Home or Self Care documented in this encounter Plan of Treatment Upcoming Encounters Date Type Department Care Team (Late st Contact Info) Description 08/09/2024 8:45 AM EDT Office Visit Pulmonolgy - [place] [address] [facility] [address] [place] [address] Sarah Breaux MD [address] [facility] [address] [place] [address] documented as of this encounter Procedures Procedure Name Priority Date/Time Associated Diagnosis Comments XR CHEST 2 VIEWS Routine 05/03/2024 10:4 0 AM EDT Chronic obstructive pulmonary disease, unspecified COPD type (CMS/HCC) Sarcoidosis of lung (CMS/HCC) documented in this encounter Results * XR Chest 2 Views (05/03/2024 10:40 AM EDT) Anatomical Region Laterality Modality Body Radiographic Lianna ging 05/03/2024 1:46 PM EDT Impressions 05/03/2024 1:47 PM EDT Small bilateral effusions and diffuse vascular congestion. -------- FINAL REPORT -------- Dictated By: Aman Styles Dictated Date: 05/03/2024 13:46 ET Assigned Physician: Aman Styles Reviewed and Electronically Signed By: Aman Styles Signed Date: 05/03/2024 13:47 ET Workstation ID: [id number] Transcribed By: Self Edit Transcribed Date: 05/03/2024 13:46 ET Narrative 05/03/2024 1:47 PM EDT HISTORY: Dyspnea, chronic, unclear etiology TECHNIQUE: PA and lateral radiographs of the chest COMPARISON: None FINDINGS: There is a normal cardiomediastinal silhouette. ??Atherosclerosis of the thoracic aorta. ??Mild blunting of the costophrenic angles bilaterally. ??Diffuse vascular congestion. ??Thickening of the right fissure. ??Osseous structures are intact Procedure Note Aman Styles MD - 05/03/2024 HISTORY: Dyspnea, chronic, unclear etiology TECHNIQUE: PA and lateral radiographs of the chest COMPARISON: None FINDINGS: There is a normal cardiomediastinal silhouette. Atherosclerosis of thethoracic aorta. Mild blunting of the costophrenic angles bilaterally.Diffuse vascular congestion. Thickening of the right fissure. Osseousstructures are intact IMPRESSION: Small bilateral effusions and diffuse vascular congestion. -------- FINAL REPORT -------- Dictated By: Aman Styles Dictated Date: 05/03/2024 13:46 ET Assigned Physician: Aman Styles Reviewed and Electronically Signed By: Aman Styles Signed Date: 05/03/2024 13:47 ET Workstation ID: [id number] Transcribed By: Self Edit Transcribed Date: 05/03/2024 13:46 ET us Sarah Breaux MD IMG XR PROCEDURES Final Result documented in this encounter Visit Diagnoses Diagnosis Chronic obstructive pulmonary disease, unspecified COPD type (CMS/HCC) Sarcoidosis of lung (CMS/[facility]) Sarcoidosis documented in this encounter Care Teams Belt Turner Relationship Specialty Start Date End Date Juan Jose Ellington, JOSIAH [address] [place], [place] PCP - General 06/26/18 documented as of this encounter
--- OUTSIDE RECORDS SUMMARY | 2024-05-04 09:08 | XMS_ITS | Clinical Summary ---
Author Organization [facility] Address [address] [place] [address] Phone Care Team Providers Care Cattle Alley Worker Name Role Phone Juan Jose Ellington NP Primary Care Provider [phone] Allergies Active Allergy Reactions Criticality Noted Date Comments Sulfa (Sulfonamide Antibiotics) 07/25/2018 No reaction documented. Medications Trelegy Ellipta 100-62.5-25 mcg inhaler INHALE 1 PUFF INTO THE LUNGS DAILY FOR 30 DAYS. 60 each 11 4 Active acetaminophen (TYLENOL) 325 mg capsule Take by mouth. Acti ve HYDROXYZINE HCL ORAL Take 10 mg by mouth daily. Active melatonin 10 mg tablet Melatonin 10 MG TABLET DISPERSIBLE Patient sig: Take by mouth. Active multivitamin/ir on/folic acid (CENTRUM ORAL) Take by mouth. Active [...] Active metoprolol succinate (Kapspargo Sprinkle) 25 mg capsule,sprinkl e,ER 24hr Take by mouth. Activ e OLANZapine (ZyPREXA) 7.5 mg tablet Take 7.5 mg by mouth at bedtime. Active simvastatin (ZOCOR) 20 mg tablet Take 20 mg by mouth at bedtime. Active Ventolin HFA 90 mcg/actuation inhalerIndicati ons:Emphysema, unspecified (CMS/HCC) INHALE 2 PUFFS INTO THE LUNGS EVERY 4 HOURS NEEDED FOR COUGH OR WHEEZING FOR UP TO 30 DAYS. 18 each 11 5 Active Oxygen Therapy via Nasal Cannula (O2) gas Inhale 2 L/min by mouth continuously. via nasal canula on exertion 5 Active albuterol 2.5 mg /3 mL (0.083 %) nebulizer solutionIndicat ions:Chronic obstructive pulmonary disease, unspecified COPD type (CMS/HCC) Take 3 mL (2.5 mg total) by nebulization every 6 (six) hours if needed for wheezing. 300 mL 2 5 05/04/19 26 Active Active Problems Problem Noted Date Diagnosed Date Bipolar disorder 10/11/2018 COPD (chronic obstructive pulmonary disease) Hyperlipidemia 10/11/2018 Hypertension 10/11/2018 Pulmonary nodule 10/11/2018 Overview (04/12/2024): RUL-05/30/18 S/p VATS & wedge resection-no malignancy Sarcoidosis of lung 10/11/2018 Encounters Date Type Department Care Team Description 05/03/2024 10:10 AM EDT - 05/03/2024 11:59 PM EDT Hospital Encounter [facility] [place] [address] [place] [address] Chronic obstructive pulmonary disease, unspecified COPD type (CMS/HCC); Sarcoidosis of lung (CMS/HCC) Discharge Disposition: Home or Self Care 05/03/2024 9:00 AM EDT Office Visit Pulmonolgy - [address] [place] [address] Sarah Breaux MD Chronic obstructive pulmonary disease, unspecified COPD type (CMS/HCC) (Primary Dx); Sarcoidosis of lung (CMS/HCC); Congestive heart failure, unspecified HF chronicity, unspecified heart failure type (CMS/HCC) from Last 3 Months Immunizations Name Administration Dates Next Due Moderna SARS-CoV-2 COVID-19, mRNA, LNP-S, preservative free 05/30/2020,05/02/2020 Surgical History Surgery Date Site/Laterality Comments OTHER SURGICAL HISTORY 04/27/2018 Right PROCEDURE: GA BRNCHSC INCL FLUOR GDNCE DX W/CELL WASHG SPX; COMMENT: negative malignancy TUBAL LIGATION PROCEDURE: HISTORICAL TUBAL LIGATION OTHER SURGICAL HISTORY 05/30/2018 Right PROCEDURE: GA BRONCHOSCOPY W/CPTR-ASST IMAGE-GUIDED NAVIGATION; COMMENT: da Arthur/VATS RUL wedge resection w/extensive pneumolysis OTHER SURGICAL HISTORY PROCEDURE: GA CARDIOVERSION ELECTIVE ARRHYTHMIA EXTERNAL Medical History Medical [...] (HCC) Renal disease DX:Renal disease Leukocytosis DX:Leukocytosis [place] nephropathy DX:[place] n ephropathy Mediastinal lymphadenopathy DX:M ediastinal lymphadenopathy [...] 0 [birth year]20/1961 - 02/20/2014 Smokeless Tobacco: Never Tobacco Cessation:Counseling Given: Not Answered Alcohol Use Standard Drinks/Week Comments Never 0 (1 standard drink = 0.6 oz pur e alcohol) Comments Unknown Sex and Gender Information Value Date Recorded Sex Assigned at Not on file Legal Sex Female 11:10 PM EST Gender Identity Not on file Sexual Orientation Not on file Obstetrics History Last Filed Vital Signs Vital Sign Reading Time Taken Comments Blood Pressure 124/62 05/03/2024 9:08 AM EDT Pulse 67 05/03/2024 9:08 AM EDT Temperature 36.8 ??C (98.2 ??F) 05/03/2024 9:08 AM ED T Respiratory Rate 18 05/03/2024 9:08 AM EDT Oxygen Saturation 98% 05/03/2024 9:08 AM EDT on 2L Inhaled Oxygen Concentration - - Weight 85.7 kg (189 lb) 05/03/2024 9:08 AM EDT Height 154.9 cm (5' 1 ) 05/03/2024 9:08 AM EDT Body Mass Index 35.71 05/03/2024 9:08 AM EDT Plan of Treatment Upcoming Encounters Date Type Department Care Team (Late st Contact Info) Description 08/09/2024 8:45 AM EDT Office Visit Pulmonolgy - [place] [address] [facility] [address] [place] [phone] Sarah Breaux MD [address] [facility] [address] [place] [address] Health Maintenance Due Date Last Done Comments DTaP,Tdap,and Td Vaccines (1 - Tdap) 1964 Zoster Vaccines (1 of 2) 11/12/1995 Cholesterol Screening (Lipid Panel) 01/23/2022 Depression Screening 01/23/2022 Falls Risk Assessment 01/23/2022 Hepatitis C Screening 01/23/2022 Medicare Annual Wellness Visit 01/23/2022 Osteoporosis Screening (Bone Density Screening) 01/23/2022 Social Influencers of Health Screening 01/23/2022 Hypertension/CHF/CAD Annual BMP Blood Test 02/02/2022 Lung Cancer Screening (Low Dose CT) 06/12/2024 06/13/2023, 06/12/2023, 04/19/2022 Pneumococcal Vaccine: 50+ Years Completed 02/20/2021, 03/09/2016, 02/20/2015 COVID-19 Vaccine Completed 01/22/2024, , 01/21/2021, Additional history exists Influenza Vaccine Completed 01/22/2024, , 02/20/2021, Additional history exists RSV Immunization Patients 60+ Years Old Completed 01/22/2024 HIB Vaccines Aged Out No longer eligi [...] 20 months Aged Out No longer eligible based on patient's age to complete this topic Varicella Vaccines Aged Out No longer eligible based on patient's age to complete this topic Procedures Procedure Name Priority Date/Time Associated Diagnosis Comments XR CHEST 2 VIEWS Routine 05/03/2024 10:4 0 AM EDT Chronic obstructive pulmonary disease, unspecified COPD type (CMS/HCC) Sarcoidosis of lung (CMS/HCC) CT LUNG SCREENING LOW DOSE Routine 06/13/2023 3:45 PM EDT Encounter for screening for malignant neoplasm of respiratory organs from Last 3 Months or Most Recently Relevant to Health Maintenance Results * XR Chest 2 Views (05/03/2024 [...] Signed Date: 05/03/2024 13:47 ET Workstation ID: [id number] Transcribed By: Self Edit Transcribed Date: 05/03/2024 [...] Signed Date: 05/03/2024 13:47 ET Workstation ID: [id number] Transcribed By: Self Edit Transcribed Date: 05/03/2024 13:46 ET us Sarah Breaux MD IMG XR PROCEDURES Final Result * CT LUNG SCREENING LOW DOSE (06/13/2023 3:45 PM EDT) Anatomical Region Laterality Modality Computed Tomogra phy 06/12/2023 11:3 6 AM EDT Narrative 06/13/2023 3:45 PM EDT [facility] Diagnostic Imaging Department [address] [place] [address] Patient: ??NIKKI HURTADO ?/Age/Sex: 1945 - 77 - F Unit#: ??[id number] ? Location/Status: ??SPDICATLS/REG CLI ? Mnemonic/Ordering Site: [...] Dic Date/Time: ??06/13/23 1514 Sign date/Time: ??06/13/23 1545 Procedure Note Edgard Torres MD - 10/09/2023 [facility] Diagnostic Imaging Department [address] [place] [id number] Patient: NIKKI HURTADO /Age/Sex: 1945 - 77 - F Unit#: [id number] [facility]Ordering Site: [facility] Ordering Physician: JOHANNA SU MD CT Lung [...] Dic Date/Time: 06/13/23 1514 Sign date/Time: 06/13/23 154 Johanna Su MD IMG CT PROCEDURES Final Result from Last 3 Months or Most Recently Relevant to Health Maintenance Insurance MEDICARE [place]ICAID - [place] Care Teams Cattle Alley Worker Relationship Specialty Start Date End Date Juan Jose Ellington NP [address] [place], [place] PCP - General 06/26/18
--- OUTSIDE RECORDS SUMMARY | 2024-05-04 09:08 | XMS_ITS | Encounter Summary ---
Author Organization [facility] Address [address] [place] [address] Phone Care Team Providers Care Crop Adjuster Name Role Phone Juan Jose Ellington MOBILE SECURITY ARCHITECT Primary Care Provider [phone] Encounter Details Date Type Department Care Team (Late Contact Info) Description 03/19/2024 Documentation Only [facility] [address] [place] [address] Tatyana Ritchie [address] [place] [address] Social History Tobacco Use Types [...] Visit [facility] [address] [place] [address] Cortes Rowe MD [address] [place] [address] [place] [address] documented as of this encounter Visit Diagnoses Not on filedocumented in this encounter Care Teams Crop Adjuster Relationship Specialty Start Date End Date Juan Jose Ellington NP [address] [place] [address] PCP - General 12/25/18 documented as of this encounter
--- OUTSIDE RECORDS SUMMARY | 2024-05-04 09:08 | XMS_ITS | Encounter Summary ---
Author Organization [facility] Address [address] [place] [address] Phone Care Team Providers Care Asphalt Distributor Operator Name Role Phone Juan Jose Ellington CLINICAL PSYCHOLOGIST Primary Care Provider [phone] Encounter Details Date Type Department Care Team (Late Contact Info) Description 10/25/2023 Documentation Only [facility] [address] [place] [address] Tatyana Ritchie [address] [place] [address] Social History Tobacco Use Types [...] [facility] [address] [place] [address] Cortes Rowe MD [address] [place] [address] [place] [address] documented as of this encounter Visit Diagnoses Not on filedocumented in this encounter Care Teams Asphalt Distributor Operator Relationship Specialty Start Date End Date Juan Jose Ellington NP [address] [place] [place] [address] PCP - General 12/25/18 documented as of this encounter
--- OUTSIDE RECORDS SUMMARY | 2024-05-04 09:08 | XMS_ITS | Clinical Summary ---
Author Organization [facility] Address [address] [place] [address] [place] [address] Phone Care Team Providers Care Chute Loader Name Role Phone Juan Jose Ellington NP Primary Care Provider [phone] Allergies No known active allergies Medications albuterol [...] Only [facility] [address] [place] [phone] Cortes Rowe MD 03/26/2024 Documentation Only [facility] [address] [place] [phone] Tatyana Ritchie 03/21/2024 1:30 PM EST Office Visit [facility] [address] [place] [phone] Cortes Rowe MD Stage 3b chronic kidney disease (HCC) (Primary Dx) 03/19/2024 Documentation Only [facility] [address] [place] [address] Tatyana Ritchie 03/19/2024 Documentation Only [facility] [address] [place] [address] Tatyana Ritchie from Last 3 Months Family [...] [facility] [address] [place] [phone] Cortes Rowe MD [address] [place] [address] Health Maintenance Due Date Last Done [...] Urine 0-5 0 - 5 /hpf [facility] RBC, Urine None seen 0 - 2 /hpf [facility] Squamous Epithelial, Urine 0-10 0 - 10 /hpf [facility] Casts None seen None seen /lpf [facility] Bacteria, Urine None seen None seen/Few [facility] 03/26/2024 9:00 AM EST 03/26/2024 Cortes Rowe MD LAB MICROBIOLOGY - GENERAL OR DERABLES Final Result Performing Organization Address City/[facility]/ZIP Co de Phone Number [facility] [address] [place] [address] * Protein, Total, Random Urine w/Creatinine (Protein/Creat Ratio) (03/26/2024 9:00 AM EST) Creatinine, Ur 85.8 Not Estab. mg/dL [facility] Protein, Ur 7.3 Not Estab. mg/dL [facility] Urine Protein/Creatin ine Ratio 85 0 - 200 mg/g creat [facility] 03/26/2024 9:00 AM EST 03/26/2024 Cortes Rowe MD LAB URINE ORDERABLES Final Re sult Performing Organization Address City/[facility]/ZIP Co de Phone Number [facility] [place] [address] [place] [address] * Urine Albumin / Creatinine Ratio (03/26/2024 9:00 AM EST) Albumin, Urine <3.0 Not Estab. ug/mL [facility] Albumin/Creatin ine Ratio <3 0 - 29 mg/g creat [facility] Comment: ? Normal: ?0 - ??29 ? Moderately increased: 30 - 300 ? Severely increased: ? >300 03/26/2024 9:00 AM EST 03/26/2024 us Cortes Rowe MD LAB URINE ORDERABLES Final Re sult [facility] [address] [place] [address] * (ABNORMAL) Urinalysis with microscopic (03/26/2024 9:00 AM EST) Specific [place], Urine 1.012 1.005 - 1.030 [facility] pH Urine 6.0 5.0 - 7.5 [facility] Color, Urine Yellow Yellow [facility] Appearance Urine Clear Clear [facility] [phone] WBC Esterase Urine Trace(A) Negative [facility] Protein, Ur Negative Negative/Tra ce [facility] Glucose, Ur Negative Negative [facility] Ketones, Urine Negative Negative [facility] [place] Blood Urine Negative Negative [facility] Bilirubin Urine Negative Negative [facility] [place] Urobilinogen Urine 0.2 0.2 - 1.0 mg/dL [facility] Nitrite, Urine Negative Negative [facility] [place] Microscopic Examination See below: [facility] [phone] Comment:Microscopic was isidro cated and was performed. 03/26/2024 9:00 AM EST 03/26/2024 Cortes Rowe MD LAB URINE ORDERABLES Final Re sult Performing Organization Address [facility]/ZIP Co de Phone Number [facility] [place] [address] [place] [address] * Iron Panel (Fe, TIBC, TSAT) (03/21/2024 2:21 PM EST) TIBC 374 250 - 450 ug/dL [facility] UIBC 281 118 - 369 ug/dL [facility] Iron 93 27 - 139 ug/dL [facility] Iron Saturation (TSat) 25 15 - 55 % [facility] Blood (Blood, Venous) 03/21/2024 2:21 PM EST 03/21/2024 Cortes Rowe MD LAB BLOOD ORDERABLES Final Re sult Performing Organization Address [facility] Co de Phone Number [facility] [place] [address] [place] [address] * (ABNORMAL) Vitamin D 25 Hydroxy (03/21/2024 2:21 PM EST) Vitamin D, 25-OH, Total 29.6(L) 30.0 - 100.0 ng/mL [facility] Comment: Vitamin D deficiency has been defined by the [place] of [employer] and an Endocrine Society practice guideline as a level of serum 25-OH vitamin D less than 20 ng/mL (1,2). The Endocrine Society went on to further define vitamin D insufficiency as a level between 21 and 29 ng/mL (2). 1. IOM ([place] of [employer]). 2010. Dietary reference ?? intakes [...] Rowe MD LAB BLOOD ORDERABLES Final [facility] [address] [place] [address] * CBC and Differential (03/21/2024 2:21 PM EST) WBC 8.2 3.4 - 10.8 x10E3/uL [facility] RBC 4.28 3.77 - 5.28 x10E6/uL [facility] Hemoglobin 13.5 11.1 - 15.9 g/dL [facility] Hematocrit 40.5 34.0 - 46.6 % [facility] MCV 95 79 - 97 fL [facility] MCH 31.5 26.6 - 33.0 pg [facility] MCHC 33.3 31.5 - 35.7 g/dL [facility] RDW 12.9 11.7 - 15.4 % [facility] Platelets 246 150 - 450 x10E3/uL [facility] Neutrophils Relative 70 Not Estab. % [facility] Lymphocytes Relative 13 Not Estab. % [facility] Monocytes 10 Not Estab. % [facility] Eosinophils Relative 5 Not Estab. % [facility] Basophils Relative 1 Not Estab. % [facility] Neutrophils Absolute 5.8 1.4 - 7.0 x10E3/uL [facility] Lymphocytes Absolute 1.1 0.7 - 3.1 x10E3/uL [facility] Monocytes Absolute 0.8 0.1 - 0.9 x10E3/uL [facility] Eosinophils Absolute 0.4 0.0 - 0.4 x10E3/uL [facility] Basophils Absolute 0.1 0.0 - 0.2 x10E3/uL [facility] Immature Granulocytes 1 Not Estab. % [facility] Immature Grans (Absolute) 0.1 0.0 - 0.1 x10E3/uL [facility] Blood (Blood, Venous) 03/21/2024 2:21 PM EST 03/21/2024 Cortes Rowe MD LAB BLOOD ORDERABLES Final Re sult [facility] [address] [place] [address] * (ABNORMAL) PTH, Intact (03/21/2024 2:21 PM EST) PTH 87(H) 15 - 65 pg/mL [facility] Blood (Blood, Venous) 03/21/2024 2:21 PM EST 03/21/2024 Cortes Rowe MD LAB BLOOD ORDERABLES Final Re sult [facility] [address] [place] [address] * (ABNORMAL) Ferritin (03/21/2024 2:21 PM EST) Ferritin 181(H) 15 - 150 ng/mL [facility] Blood (Blood, Venous) 03/21/2024 2:21 PM EST 03/21/2024 us Cortes Rowe MD LAB BLOOD ORDERABLES Final Re sult [facility] [address] [place] [address] * (ABNORMAL) Renal Function Panel (03/21/2024 2:21 PM EST) Pathologist [facility] Glucose 82 70 - 99 mg/dL [facility] BUN 39(H) 8 - 27 mg/dL [facility] Creatinine 2.06(H) 0.57 - 1.00 mg/dL [facility] eGFR CKD-EPI CR 2020 24(L) >59 mL/min/1.7 3 [facility] BUN/Creatinine Ratio 19 12 - 28 [facility] Sodium 141 134 - 144 mmol/L [facility] Potassium 4.3 3.5 - 5.2 mmol/L [facility] Chloride 102 96 - 106 mmol/L [facility] Bicarbonate (CO2) 23 20 - 29 mmol/L [facility] Calcium 9.8 8.7 - 10.3 mg/dL [facility] Albumin 4.6 3.8 - 4.8 g/dL [facility] Phosphorus 3.6 3.0 - 4.3 mg/dL [facility] Blood (Blood, Venous) 03/21/2024 2:21 PM EST 03/21/2024 us Cortes Rowe MD LAB BLOOD ORDERABLES Final Re sult [facility] [address] [place] [phone] from Last 3 Months Insurance [place]ICAID [place] MEDICARE [place]ARE [place] Care Teams Chute Loader Relationship Specialty Start Date End Date Juan Jose Ellington NP [address] [place] [address] PCP - General 12/25/18
--- OUTSIDE RECORDS SUMMARY | 2024-05-04 09:08 | XMS_ITS | Encounter Summary ---
Author Organization [facility] Address [address] [place] [address] Phone Care Team Providers Care Hand Icer Name Role Phone Juan Jose Ellington RENEWALS MANAGER Primary Care Provider [phone] Encounter Details Date Type Department Care Team (Late Contact Info) Description 03/26/2024 Documentation Only [facility] [address] [place] [address] Tatyana Ritchie [address] [place] [address] Social History Tobacco Use Types [...] Visit [facility] [address] [place] [address] Cortes Rowe MD [address] [place] [address] [place] [address] documented as of this encounter Visit Diagnoses Not on filedocumented in this encounter Care Teams Hand Icer Relationship Specialty Start Date End Date Juan Jose Ellington NP [address] [facility] [place] [address] PCP - General 12/25/18 documented as of this encounter
--- OUTSIDE RECORDS SUMMARY | 2024-05-04 09:08 | XMS_ITS | Encounter Summary ---
Author Organization [facility] Address [address] [place] [address] Phone Care Team Providers Care Relief Driller Name Role Phone Juan Jose Ellington DEBLOCKER Primary Care Provider [phone] Encounter Details Date Type Department Care Team (Late Contact Info) Description 03/19/2024 Documentation Only [facility] [address] [place] [address] Tatyana Ritchie [address] [place] [address] Social History Tobacco Use Types [...] [facility] [address] [place] [address] Cortes Rowe MD [address] [place] [address] [place] [address] documented as of this encounter Visit Diagnoses Not on filedocumented in this encounter Care Teams Relief Driller Relationship Specialty Start Date End Date Juan Jose Ellington NP [address] [place] [address] PCP - General 12/25/18 documented as of this encounter
--- OUTSIDE RECORDS SUMMARY | 2024-05-04 09:08 | XMS_ITS | Encounter Summary ---
Author Organization [facility] Address [address] [place] [phone] Care Team Providers Care Lucerne Farmer Name Role Phone Juan Jose Ellington NP Primary Care Provider [phone] Reason for Visit * Reason Comments COPD Hospital follow up w as at [facility] 2 weeks ago for a total of 1 week for bi-lateral pneumonia Encounter Details Date Type Department Care Team (Late st Contact Info) Description 05/03/2024 9:00 AM EDT Office Visit Pulmonolgy - [place] [address] [place] [address] Sarah Breaux MD [address] [place] [address] Chronic obstructive pulmonary disease, unspecified COPD type (CMS/HCC) (Primary Dx); Sarcoidosis of lung (CMS/HCC); Congestive heart failure, unspecified HF chronicity, unspecified heart failure type (CMS/HCC) Social History Tobacco Use Types Packs/Day Years [...] Mass Index 35.71 05/03/2024 9:08 AM EDT documented in this encounter Ordered Prescriptions Prescription Sig Dispense Quantity Refills Last Filled Start Date End Date albuterol 2.5 mg /3 mL (0.083 %) nebulizer solutionIndicatio ns:Chronic obstructive pulmonary disease, unspecified COPD type (CMS/HCC) Take 3 mL (2.5 mg total) by nebulization every 6 (six) hours if needed for wheezing. 300 mL 2 05/03/2024 documented in this encounter Plan of Treatment Upcoming Encounters Date Type Department Care Team (Late st Contact Info) Description 08/09/2024 8:45 AM EDT Office Visit Pulmonolgy - [place] [address] [facility] [address] [place] [address] Sarah Breaux MD [address] [facility] [address] [place] [address] documented as of this encounter Results * XR Chest 2 [...] Signed Date: 05/03/2024 13:47 ET Workstation ID: [id number] Transcribed By: Self Edit Transcribed Date: 05/03/2024 [...] Signed Date: 05/03/2024 13:47 ET Workstation ID: [id number] Transcribed By: Self Edit Transcribed Date: 05/03/2024 13:46 ET Sarah Breaux MD IMG XR PROCEDURES Final Result documented in this encounter Visit Diagnoses Diagnosis Chronic obstructive pulmonary disease, unspecified COPD type (CMS/HCC)- Primary Sarcoidosis of lung (CMS/HCC) Sarcoidosis Congestive heart failure, unspecified HF chronicity, unspecified heart failure type (CMS/HCC) Chronic obstructive pulmonary disease, unspecified COPD type (CMS/HCC) Sarcoidosis of lung (CMS/HCC) Sarcoidosis documented in this encounter Historical Medications * This list may reflect changes made after this encounter. Oxygen Therapy via Nasal Cannula (O2) gas Inhale 2 L/min by mouth continuously. via nasal canula on exertion 04/11/2024 added in this encounter Orders General Supply Count Last Ordered Date First Or dered Date NEBULIZER 1 05/03/2024 documented in this encounter Care Teams Lucerne Farmer Relationship Specialty Start Date End Date Juan Jose Ellington NP [address] [facility] [place] DEEPAK [place] PCP - General 06/26/18 documented as of this encounter
--- OUTSIDE RECORDS SUMMARY | 2024-05-04 09:08 | XMS_ITS | Encounter Summary ---
Author Organization [facility] Address [address] [place] [address] Phone Care Team Providers Care Research Leader Name Role Phone Juan Jose Ellington ASSESSMENT NURSE Primary Care Provider [phone] Encounter Details Date Type Department Care Team (Late Contact Info) Description 10/12/2023 Documentation Only [facility] [address] [place] [address] Tatyana Ritchie [address] [place] [address] Social History Tobacco Use Types [...] [facility] [address] [place] [address] Cortes Rowe MD [address] [place] [address] [place] [address] documented as of this encounter Visit Diagnoses Not on filedocumented in this encounter Care Teams Research Leader Relationship Specialty Start Date End Date Juan Jose Ellington NP [address] [place] [address] PCP - General 12/25/18 documented as of this encounter
--- OUTSIDE RECORDS SUMMARY | 2024-05-04 09:08 | XMS_ITS | Encounter Summary ---
Author Organization [facility] Address [address] [place] [address] Phone Care Team Providers Care Envelope Sealing Machine Operator Name Role Phone Juan Jose Ellington NATURAL RESOURCES EXTENSION EDUCATOR Primary Care Provider [phone] Encounter Details Date Type Department Care Team (Late Contact Info) Description 10/25/2023 Documentation Only [facility] [address] [place] [address] Tatyana Ritchie [address] [place] [address] Social History Tobacco Use Types [...] Visit [facility] [address] [place] [address] Cortes Rowe MD [address] [place] [address] [place] [address] documented as of this encounter Visit Diagnoses Not on filedocumented in this encounter Care Teams Envelope Sealing Machine Operator Relationship Specialty Start Date End Date Juan Jose Ellington NP [address] [place] [address] PCP - General 12/25/18 documented as of this encounter
--- OUTSIDE RECORDS SUMMARY | 2024-05-04 09:08 | XMS_ITS | Encounter Summary ---
Author Organization [facility] Address [address] [place] [address] Phone Care Team Providers Care Yeast Fermentation Attendant Name Role Phone Juan Jose Ellington CERTIFIED PROFESSIONAL MIDWIFE Primary Care Provider [phone] Encounter Details Date Type Department Care Team (Late Contact Info) Description 10/25/2023 Documentation Only [facility] [address] [place] [address] Tatyana Ritchie [address] [place] [address] Social History Tobacco Use Types [...] Visit [facility] [address] [place] [address] Cortes Rowe MD [address] [place] [address] [place] [address] documented as of this encounter Visit Diagnoses Not on filedocumented in this encounter Care Teams Yeast Fermentation Attendant Relationship Specialty Start Date End Date Juan Jose Ellington NP [address] [place] [address] PCP - General 12/25/18 documented as of this encounter
--- OUTSIDE RECORDS SUMMARY | 2024-05-04 09:08 | XMS_ITS ---
Author Organization [facility] Care Team Providers Care Charge Out Clerk Name Role Phone Serafin Briones Unavailable Unavailable Tonja Tuttle Unavailable Unavailable Magda Chavez Unavailable Unavailable Allergies and adverse reactions Code CodeSystem Substance Reaction Severity StartDate Concern Status 746628209 SNOMED CT Sulfa Antibiotics Unknown 04/05/2021 active Care Team Name Role Address Phone Organization Dates Serafin Briones PCP [address], [address], [facility] (Office): : [facility] 04/23/2021 - 05/03/2021 Tonja Tuttle Attending Physician [address], [address], [place] (Office): : [facility] 04/23/2021 - 05/03/2021 Magda Chavez Attending Physician [address] [place] [address], [address], [facility] (Office): [facility] 04/23/2021 - 05/03/2021 Immunizations Immunization [...] ON CHRONIC SYSTOLIC (CONGESTIVE) HEART FAILURE [address] active 2 CHRONIC OBSTRUCTIVE PULMONARY DISEASE WITH (ACUTE) EXACERBATION [address] active 3 MORBID (SEVERE) OBESITY DUE TO EXCESS CALORIES [address] active 4 MUSCLE WASTING AND ATROPHY, NOT ELSEWHERE CLASSIFIED, RIGHT SHOULDER [address] active 5 SCHIZOAFFECTIVE DISORDER, BIPOLAR TYPE [address] active 6 CHRONIC OBSTRUCTIVE PULMONARY DISEASE, UNSPECIFIED 2 04/23/[address] completed 7 PULMONARY FIBROSIS, UNSPECIFIED [address] active 8 ACUTE KIDNEY FAILURE, UNSPECIFIED 2 04/23/[address] completed 9 BIPOLAR DISORDER, CURRENT EPISODE MANIC SEVERE WITH PSYCHOTIC FEATURES [address] active 10 CHRONIC KIDNEY DISEASE, STAGE 3 UNSPECIFIED [address] active 11 ENCOUNTER FOR OBSERVATION FOR SUSPECTED EXPOSURE TO OTHER BIOLOGICAL AGENTS RULED OUT [address] active 12 ESSENTIAL (PRIMARY) HYPERTENSION [address] active 13 HYPERLIPIDEMIA, UNSPECIFIED [address] active 14 MUSCLE WASTING AND ATROPHY, NOT ELSEWHERE CLASSIFIED, RIGHT SHOULDER 2 04/23/[address] completed 15 NEPHROPATHY INDUCED BY UNSPECIFIED DRUG, MEDICAMENT OR BIOLOGICAL SUBSTANCE [address] active 16 PAROXYSMAL ATRIAL FIBRILLATION [address] active 17 SEPSIS DUE TO ESCHERICHIA COLI [E. COLI] [address] active 18 URINARY TRACT INFECTION, SITE NOT SPECIFIED [address] active 19 VITAMIN D DEFICIENCY, UNSPECIFIED [address] active Reason for Referral No Reasons for Referral Entered Social History Social History Observation Description Start Date End Date Code Code System Current Smoking Status Tobacco smoking consumption unknown 772170912 SNOMED CT Sex Assigned At Female 1945 [address]2 [facility] Vital Signs Code Code System Vitals Name Values and Units Timing Information 9279-1 LOINC Respiratory Rate Value=18.0 Units=/m in 05/03/2021 8310-5 LOINC Body Temperature Value=97.3 Units=?? F 05/03/2021 76484-4 [facility] O2 % BldC Oximetry Value=98.0 Units= % 05/03/2021 8462-4 LOINC Blood Pressure-Diastolic Value=63 Un its=mmHg 05/03/2021 8480-6 LOINC Blood Pressure-Systolic Pehjp=919 Un its=mmHg 05/03/2021 8867-4 LOINC Heart rate Value=81.0 Units=/min 31295-5 LOINC Pain Level Value=0.0 05/03/2021 8302-2 LOINC Height Value=60.0 Units=Inches 04/23/2021 69637-8 LOINC Weight Ovnpc=801.3 Units=Lbs 05/2021
[2024-05-04 11:21] LABS: MANUAL DIFF FLAG NO
[2024-05-04 11:26] LABS: Basophils Percent Auto 0.4 % (0-2); Eosinophils Absolute Auto 0.7 X10*3/uL (0.0-0.4); Eosinophils Percent Auto 9.2 % (0-4); Hematocrit 36.5 % (37.0-47.0); Hemoglobin 11.5 g/dl (12.0-16.0); Imm Gran Abs Auto 0.02 X10*3/uL (0.00-0.03); Imm Gran Pct Auto 0.3 % (0.0-0.4); Lymphocytes Absolute Auto 0.6 X10*3/uL (1.2-4.9); Lymphocytes Percent Auto 7.9 % (20-40); Mean Corpuscular HGB Conc 31.5 g/dl (31.0-35.0); Mean Corpuscular Hemoglobin 31.1 pg (27.0-33.0); Mean Corpuscular Volume 98.6 fL (80.0-98.0); Monocytes Absolute Auto 0.4 X10*3/uL (0.1-1.2); Monocytes Percent Auto 5.4 % (2-11); Neutrophils Absolute Auto 5.5 x10*3/uL (2.0-8.3); Neutrophils Percent Auto 76.8 % (45-73); Red Cell Distribution Width 15.3 % (11.0-16.0); White Blood Count 7.1 X10*3/uL (4.8-10.8)
[2024-05-04 11:43] LABS: Platelet Count 123 X10*3/uL (160-400)
[2024-05-04 11:45] LABS: B Type Natriuretic Peptide 598 pg/mL (<100)
[2024-05-04 12:01] LABS: Alanine Aminotransferase 17 U/L (0-31); Albumin Level 3.5 g/dL (3.5-5.0); Alkaline Phosphatase 55 U/L (39-117); Anion Gap 12 (12-20); Aspartate Amino Transferase 20 U/L (5-31); Bilirubin Total 0.8 mg/dL (0.0-1.0); Blood Urea Nitrogen 31 mg/dL (9-16); Calcium 9.1 mg/dL (8.4-10.2); Carbon Dioxide 27 mmol/L (22-29); Chloride 108 mmol/L (96-108); Cholesterol 159 mg/dL (<200); Estimated Glomerular Filt Rate 25; Glucose Fasting 100 mg/dL (60-99); HDL Cholesterol 42 mg/dL (>40); LDL Cholesterol Calculated 93 mg/dL (<100); Magnesium 1.9 mg/dL (1.6-2.6); Potassium 3.9 mmol/L (3.3-5.1); Sodium 143 mmol/L (135-145); Total Protein 6.1 g/dL (6.5-8.0); Triglycerides 124 mg/dL (<150)
[2024-05-04 12:18] LABS: TSH reflex Free T4 1.04 uIU/mL (0.32-4.0)
== END 2024-05-04 09:06 | disposition home or self-care (01) ==
LOC: HO.HMGCLDS 09:05
PROVIDERS: PCP Nurse Practitioner Family; Visit Provider Nurse Practitioner Family
DX: N17.9 Acute kidney failure, unspecified (principal); I50.9 Heart failure, unspecified; J18.9 Pneumonia, unspecified organism; R32 Unspecified urinary incontinence; T14.8XXA Other injury of unspecified body region, initial encounter
CPT/HCPCS: 36415; 80053; 80061; 83735; 83880; 84443; 85025

== ENCOUNTER 2024-05-21 14:04 | Outpatient (REF) | payer MEDICARE, MEDICAID, SELFPAY ==
--- OUTSIDE RECORDS SUMMARY | 2024-05-21 16:52 | XMS_ITS | Encounter Summary ---
Author Organization [facility] Address [address] [place] [address] Care Team Providers Care Solar Energy Installation Manager Name Role Phone Juan Jose Ellington NP Primary Care Provider Unavail able Kenneth Garza PA-C Unavailable [phone] Johanna Son MD Unavailable Encounter Details Date Type Department Care Team Description 02/25/2019 Release of Information Medical Records [address] [place] [id number] Abstract, Provider Social History Tobacco Use Types Packs/Day Years Used Date Smoking Tobacco: Former Cigarettes 1 53 1 962 - 2012 Smokeless Tobacco: Never Sex Assigned at Date Recorded Not on file Job Start Date Occupation Industry Not on file Not on file Not on file documented as of this encounter Plan of Treatment Not on file documented as of this encounter Visit Diagnoses Not on filedocumented in this encounter Care Teams Solar Energy Installation Manager Relationship Specialty Start Date End Date Juan Jose Ellington NP PCP - General Family Practice 06/26/18 Kenneth Garza PA-C [address] [address] Specialist Thoracic Surgery 06/01/22 Johanna Son MD [address] [address] Lung Cancer Traffic Personnel Supervisor 06/01/22 documented as of this encounter
--- OUTSIDE RECORDS SUMMARY | 2024-05-21 16:52 | XMS_ITS | Clinical Summary ---
Author Organization 175 [facility] Address [address] [place] [address] Phone Care Team Providers Care Power Plant Superintendent Name Role Phone Juan Jose Ellington NP Primary Care Provider [phone] Allergies Active Allergy Reactions Criticality Noted Date [...] Ventolin HFA 90 mcg/actuation inhalerIndicati ons:Emphysema, unspecified INHALE 2 PUFFS INTO THE LUNGS EVERY 4 HOURS NEEDED FOR COUGH OR WHEEZING FOR UP TO 30 DAYS. 18 each 5 Active Oxygen Therapy via Nasal Cannula [...] Encounters Date Type Department Care Team Description 05/21/2024 Telephone Lung Screening Program - [place] 299 [facility] [address] [place] [address] Luba De Leon [place] Appointment (Open in Error) 05/21/2024 Telephone Lung Screening Program - [place] 299 [facility] [address] [place] [address] Luba De Leon MA 05/03/2024 10:10 AM EDT - 05/03/2024 11:59 PM EDT Hospital Encounter XRAY - [place] [address] [place] [address] Chronic obstructive pulmonary disease, unspecified COPD type (CMS/HCC); Sarcoidosis of lung (CMS/HCC) Discharge Disposition: Home or Self Care 05/03/2024 9:00 AM EDT Office Visit Pulmonolgy - [place] 175 [facility] [address] [place] [phone] Sarah Breaux MD Chronic obstructive pulmonary disease, unspecified COPD type (CMS/HCC) (Primary Dx); Sarcoidosis of lung (CMS/HCC); Congestive heart failure, unspecified HF chronicity, unspecified heart failure type (CMS/HCC) from Last 3 Months Immunizations Name Administration Dates Next Due Moderna SARS-CoV-2 COVID-19, mRNA, LNP-S, preservative free 05/30/2020,05/02/2020 Surgical History Surgery Date Site/Laterality Comments OTHER SURGICAL HISTORY 04/27/2018 Right PROCEDURE: ME BRNCHSC INCL FLUOR GDNCE DX W/CELL WASHG SPX; COMMENT: negative malignancy TUBAL LIGATION PROCEDURE: HISTORICAL TUBAL LIGATION OTHER SURGICAL HISTORY 05/30/2018 Right PROCEDURE: ME BRONCHOSCOPY W/CPTR-ASST IMAGE-GUIDED NAVIGATION; COMMENT: da Arthur/VATS RUL wedge resection w/extensive pneumolysis OTHER SURGICAL HISTORY PROCEDURE: ME CARDIOVERSION ELECTIVE ARRHYTHMIA EXTERNAL Medical History Medical History Date Comments COPD (chronic obstructive pu lmonary disease) (CMS/HCC) 10/11/2018 DX:COPD (chronic obstructive pulmonary disease) (HCC) Sarcoidosis of lung (CMS/HCC) 10/11/2018 DX :Sarcoidosis of lung (HCC) Pulmonary nodule 10/11/2018 DX:Pulmonary no dule; COMMENT: RUL-05/30/18 S/p VATS & wedge resection-no malignancy Bipolar disorder 10/11/2018 DX:Bipolar diso rder (HCC) Hypertension 10/11/2018 DX:Hypertension Hyperlipidemia 10/11/2018 DX:Hyperlipidemi a SHARON (acute kidney injury) (CMS/HCC) DX:SHARON (acute kidney injury) (HCC) Atrial fibrillation (CMS/HCC) DX :Atrial fibrillation (HCC) Renal disease DX:Renal disease Leukocytosis DX:Leukocytosis [place] nephropathy DX:[place] n ephropathy Mediastinal lymphadenopathy DX:M ediastinal lymphadenopathy [...] 8:45 AM EDT Office Visit Pulmonolgy - [place] 175 [facility] [address] [place] [address] Sarah Breaux MD 175 [facility] [address] [place] [address] Health Maintenance Due Date Last Done Comments [...] Signed Date: 05/03/2024 13:47 ET Workstation ID: [id number] Transcribed By: Self Edit Transcribed Date: 05/03/2024 [...] Signed Date: 05/03/2024 13:47 ET Workstation ID: [id number] Transcribed By: Self Edit Transcribed Date: 05/03/2024 13:46 ET us Sarah Breaux MD IMG XR PROCEDURES Final Result * CT LUNG SCREENING LOW DOSE (06/13/2023 3:45 PM EDT) Anatomical Region Laterality Modality Computed Tomogra phy 06/12/2023 11:3 6 AM EDT Narrative 06/13/2023 3:45 PM EDT [facility] Diagnostic Imaging Department [address] [place] [address] Patient: ??NIKKI HURTADO ?/Age/Sex: 1945 - 77 - F Unit#: ??[id number] ? Location/Status: ??SPDICATLS/REG CLI ? Mnemonic/Ordering Site: ??CTLUNGLD/SPCT Ordering Physician: ??MULUGETA SU MD CT Lung Screening Low Dose [...] Physician: ??EDGARD TORRES MD Electronically Signed by: ??EGDARD TORRES MD Dic Date/Time: ??06/13/23 0570 Sign date/Time: ??06/13/23 6835 Procedure Note Edgard Torres MD - 10/09/2023 [facility] Diagnostic Imaging Department [address] [place] [address] Patient: BORISRAYMONDNIKKI /Age/Sex: 1945 - 77 - F Unit#: [id number] Location/Status: [facility] Mnemonic/Ordering Site: [facility] Ordering Physician: MULUGETA SU MD CT Lung Screening Low Dose [...] Dic Date/Time: 06/13/23 1514 Sign date/Time: 06/13/23 1545 Mulugeta Su MD IMG CT PROCEDURES Final Result from Last 3 Months or Most Recently Relevant to Health Maintenance Insurance MEDICARE MEDICA[place] - [place] Care Teams Power Plant Superintendent Relationship Specialty Start Date End Date Juan Jose Ellington NP [address] [place], [place] PCP - General 06/26/18
--- OUTSIDE RECORDS SUMMARY | 2024-05-21 16:52 | XMS_ITS | Encounter Summary ---
Author Organization [facility] Address [address] [place] [address] Phone Care Team Providers Care Roving Frame Tender Name Role Phone Juan Jose Ellington OUTSIDE RESIDENTIAL SALES PROFESSIONAL Primary Care Provider Encounter Details Date Type Department Care Team (Late Contact Info) Description 10/25/2023 Documentation Only [facility] [address] [place] [address] Tatyana Ritchie [address] [place] [address] Social History Tobacco Use Types [...] Visit [facility] [address] [place] [address] Cortes Rowe MD [address] [place] [address] [place] [address] documented as of this encounter Visit Diagnoses Not on filedocumented in this encounter Care Teams Roving Frame Tender Relationship Specialty Start Date End Date Juan Jose Ellington NP [address] [place] [address] PCP - General 12/25/18 documented as of this encounter
--- OUTSIDE RECORDS SUMMARY | 2024-05-21 16:52 | XMS_ITS | Encounter Summary ---
Author Organization [facility] Address [address] [place] [address] Phone Care Team Providers Care Manager Drilling Name Role Phone Juan Jose Ellington COMBER SETTER Primary Care Provider [phone] Encounter Details Date Type Department Care Team (Late Contact Info) Description 03/19/2024 Documentation Only [facility] [address] [place] [address] Tatyana Ritchie [address] [place] [address] Social History Tobacco Use Types [...] [facility] [address] [place] [address] Cortes Rowe MD [address] [place] [address] [place] [address] documented as of this encounter Visit Diagnoses Not on filedocumented in this encounter Care Teams Manager Drilling Relationship Specialty Start Date End Date Juan Jose Ellington NP [address] [place] [address] PCP - General 12/25/18 documented as of this encounter
--- OUTSIDE RECORDS SUMMARY | 2024-05-21 16:52 | XMS_ITS | Encounter Summary ---
Author Organization [facility] Address [address] [place] [address] Phone Care Team Providers Care Electron Beam Welder Name Role Phone Juan Jose Ellington AIR CONDITIONING EQUIPMENT MECHANIC Primary Care Provider [phone] Encounter Details Date Type Department Care Team (Late Contact Info) Description 10/25/2023 Documentation Only [facility] [address] [place] [address] Tatyana Ritchie [address] [place] [address] Social History Tobacco Use Types [...] [facility] [address] [place] [address] Cortes Rowe MD [address] [place] [address] [place] [address] documented as of this encounter Visit Diagnoses Not on filedocumented in this encounter Care Teams Electron Beam Welder Relationship Specialty Start Date End Date Juan Jose Ellington NP [address] [place] [address] PCP - General 12/25/18 documented as of this encounter
--- OUTSIDE RECORDS SUMMARY | 2024-05-21 16:52 | XMS_ITS | Encounter Summary ---
Author Organization [facility] Address [address] [place] [address] Care Team Providers Care Credit Analyst Name Role Phone Juan Jose Ellington NP Primary Care Provider Unavail able Kenneth Garza PA-C Unavailable [phone] Johanna Son MD Unavailable Reason for Visit * Reason Onset Date Comments Provider Call Back 04/29/2019 Encounter Details Date Type Department Care Team Description 04/29/2019 Telephone Pulmonology - [place] 175 [facility] [address] [place] [address] Sarah Breaux MD [address] [place] [address] Provider Call Back Social History Tobacco Use Types Packs/Day Years Used Date Smoking Tobacco: Former Cigarettes 1 53 1 962 - 2012 Smokeless Tobacco: Never Sex Assigned at Date Recorded Not on file Job Start Date Occupation Industry Not on file Not on file Not on file documented as of this encounter Miscellaneous Notes * Telephone Encounter - Anna Roberto - 04/29/2019 10:35 AM EDT Caller requesting call back from provider: Is the caller the patient? NO If caller is not the patient, what is the callers name? Parisa Sykes relationship to patient? sister If person calling is not the patient themselves, is there a verbal release in FYI or permanent comments for this person: YES Reason for call back: Patient sister call and said [facility] said the last time she has a CTscan was last year on 09/10/18 so she does not need another CT scan til the summer. FYI Caller offered to speak with the nurse for assistance: YES Response: Patient offered to speak with nurse for assistance and patient agreed. Message forwarded to nurse. documented in this encounter Plan of Treatment Not on file documented as of this encounter Visit Diagnoses Not on filedocumented in this encounter Care Teams Credit Analyst Relationship Specialty Start Date End Date Juan Jose Ellington NP PCP - General Family Practice 06/26/18 Kenneth Garza PA-C [address] [address] Specialist Thoracic Surgery 06/01/22 Johanna Son MD [address] [address] Lung Cancer Principal Architectural Firm 06/01/22 documented as of this encounter
--- OUTSIDE RECORDS SUMMARY | 2024-05-21 16:52 | XMS_ITS | Encounter Summary ---
Author Organization [facility] Address [address] [place] [address] Phone Care Team Providers Care Chamfering Machine Operator Name Role Phone Juan Jose Ellington SITE ACQUISITION SPECIALIST Primary Care Provider [phone] Encounter Details Date Type Department Care Team (Late Contact Info) Description 03/19/2024 Documentation Only [facility] [address] [place] [address] Tatyana Ritchie [address] [place] [address] Social History Tobacco Use Types [...] Visit [facility] [address] [place] [address] Cortes Rowe MD [address] [place] [address] [place] [address] documented as of this encounter Visit Diagnoses Not on filedocumented in this encounter Care Teams Chamfering Machine Operator Relationship Specialty Start Date End Date Juan Jose Ellington NP [address] [place] [address] PCP - General 12/25/18 documented as of this encounter
--- OUTSIDE RECORDS SUMMARY | 2024-05-21 16:53 | XMS_ITS | Encounter Summary ---
Author Organization [facility] Address [address] [place] [address] Care Team Providers Care Human Factors Advisor Lead Name Role Phone Juan Jose Ellington BUSINESS SERVICES ADMINISTRATOR Primary Care Provider [phone] Encounter Details Date Type Department Care Team ([facility] st Contact Info) Description 05/21/2024 Telephone Lung Screening Program - [address] [address] Luba De Leon [place] Social History Tobacco Use Types Packs/Day Years [...] on file documented as of this encounter Progress Notes * Luba De Leon MA - 05/21/2024 9:20 AM EDT Unfortunately, this patient's insurance will only cover lung cancer screenings between the ages of 50-80, who have at least a 20 pack year total and are still currently smoking or have quit within the last 15 years. Patients insurance will only cover up yo 77 years of age. We do offer out of pocket screenings for patients who qualify under other lung cancer screening guidelines (i.e. USPSTF, NCCN, CMS) for patients who are interested and have made them aware. If this patient decides they would like to pursue this option, please re-refer them. Please do not hesitate to call us if you have any questions, . documented in this encounter Plan of Treatment Upcoming Encounters Date Type Department Care Team (Late st Contact Info) Description 08/09/2024 8:45 AM EDT Office Visit Pulmonolgy - [place] 175 [facility] [address] [place] [address] Sarah Breaux MD 175 [facility] [address] [place] [address] documented as of this encounter Visit Diagnoses Not on filedocumented in this encounter Care Teams Human Factors Advisor Lead Relationship Specialty Start Date End Date Juan Jose Ellington NP [address] [place], [place] PCP - General 06/26/18 documented as of this encounter
--- OUTSIDE RECORDS SUMMARY | 2024-05-21 16:53 | XMS_ITS | Encounter Summary ---
Author Organization Formerly [facility] Address [address] [place] [address] Care Team Providers Care Regrader Name Role Phone Juan Jose Ellington NP Primary Care Provider Unavail able Kenneth Garza PA-C Unavailable Johanna Son MD Unavailable Reason for Visit * Reason Onset Date Comments Note, Other 03/01/2022 Encounter Details Date Type Department Care Team Description 03/01/2022 Refill Pulmonology - [place] 175 [facility] [address] [place] [phone] Sarah Breaux MD [address] [place] [address] Note, Other Social History Tobacco Use Types Packs/Day Years Used Date Smoking Tobacco: Former Cigarettes 1 53 1 962 2012 Smokeless Tobacco: Never Sex Assigned at Date Recorded Not on file Job Start Date Occupation Industry Not on file Not on file Not on file documented as of this encounter Miscellaneous Notes * Telephone Encounter - Dhaval Yang CMA - 03/02/2022 8:13 AM EST EAR[place] 09/07/20 NOV 03/06/22 * Telephone Encounter - Miranda Stanley - 03/01/2022 10:34 AM EST Patient would like script to be: E-PRESCRIBED/FAXED TO PHARMACY WHEN WAS THE PATIENT'S LAST APPOINTMENT IN ADULT MEDICINE? 09/07/20 WHEN WAS THE LAST TIME THE PATIENT SAW THEIR PCP? Same as above Does patient have an upcoming appointment? No (THE MEDICATION REQUESTED IS ON THE MED LIST ABOVE) All of the medications requested were on the CURRENT MEDS list Did you check the Pharmacy information above?: YES Patient wants: 30 -day supply Is this a mail order prescription request ? NO If the refill is from a FAXED refill request what is the RX # listed on the fax? N/A Patients current insurance carrier is: Payor: MEDICARE-[employer] / [place] / Product Type: MEDICARE [id number] documented in this encounter Plan of Treatment Not on file documented as of this encounter Visit Diagnoses Diagnosis Pulmonary emphysema, unspecified emphysema type (HCC) Sarcoidosis of lung (HCC) Sarcoidosis documented in this encounter Care Teams Regrader Relationship Specialty Start Date End Date Juan Jose Ellington NP PCP - General Family Practice 06/26/18 Kenneth Garza PA-C [address] [phone] Specialist Thoracic Surgery 06/01/22 Johanna Son MD [address] [phone] Lung Cancer Waste And Batting Waste Chopper 06/01/22 documented as of this encounter
--- OUTSIDE RECORDS SUMMARY | 2024-05-21 16:53 | XMS_ITS | Encounter Summary ---
Author Organization [facility] Address [address] [place] [address] Care Team Providers Care Gear Roller Name Role Phone Juan Jose Ellington NP Primary Care Provider Unavail able Kenneth Garza PA-C Unavailable [phone] Johanna Son MD Unavailable Encounter Details Date Type Department Care Team Description 04/27/2022 Release of Information Medical Records [address] [place] [id number] Abstract, Provider Social History Tobacco Use Types Packs/Day Years Used Date Smoking Tobacco: Former Cigarettes 1 52 1 96 - 2014 Smokeless Tobacco: Never Comments:04/15/2022: former shelbi argueta, quit 8 years ago. Averaged 1ppd since age 16. DEVAUGHN: 52 Alcohol Use Standard Drinks/Week Comments Never 0 (1 standard drink = 0.6 oz pur e alcohol) Sex Assigned at Date Recorded Not on file Job Start Date Occupation Industry Not on file Not on file Not on file COVID-19 Exposure Response Date Recorded In the last 10 days, have yo u been in contact with someone who was confirmed or suspected to have Coronavirus/COVID-19? No / Unsure 04/15/2022 8:46 AM EST documented as of this encounter Plan of Treatment Not on file documented as of this encounter Visit Diagnoses Not on filedocumented in this encounter Care Teams Gear Roller Relationship Specialty Start Date End Date Juan Jose Ellington NP PCP - General Family Practice 06/26/18 Kenneth Garza PA-C [address] [phone] Specialist Thoracic Surgery 06/01/22 Johanna Son MD [address] [place] [phone] Lung Cancer Investigation Division Lieutenant 06/01/22 documented as of this encounter
--- OUTSIDE RECORDS SUMMARY | 2024-05-21 16:53 | XMS_ITS | Encounter Summary ---
Author Organization [facility] Address [address] [place] [address] Phone Care Team Providers Care Roughing Mill Operator Name Role Phone Juan Jose Ellington MULTICUT LINE OPERATOR Primary Care Provider [phone] Encounter Details Date Type Department Care Team (Late Contact Info) Description 10/25/2023 Documentation Only [facility] [address] [place] [address] Tatyana Ritchie [address] [place] [address] Social History Tobacco Use Types [...] [facility] [address] [place] [address] oCrtes Rowe MD [address] [place] [address] [place] [address] documented as of this encounter Visit Diagnoses Not on filedocumented in this encounter Care Teams Roughing Mill Operator Relationship Specialty Start Date End Date Juan Jose Ellington NP [address] [facility] [place] [address] PCP - General 12/25/18 documented as of this encounter
--- OUTSIDE RECORDS SUMMARY | 2024-05-21 16:53 | XMS_ITS | Encounter Summary ---
Author Organization [facility] Address [address] [place] [address] Care Team Providers Care Professional Development Manager Name Role Phone Juan Jose Ellington NP Primary Care Provider Unavail able Kenneth Garza PA-C Unavailable Johanna Son MD Unavailable Encounter Details Date Type Department Care Team Description 06/01/2022 [facility] Lung Screening Program [address] [phone] Johanna Son MD [address] [phone] Social History Tobacco Use Types Packs/Day Years Used Date Smoking Tobacco: Former Cigarettes 1 52 1 - 2014 Smokeless Tobacco: Never Comments:04/15/2022: former s kendall, quit 8 years ago. Averaged 1ppd since [...] suspected to have Coronavirus/COVID-19? No / Unsure 06/01/2022 9:10 AM EDT documented as of this encounter Plan of Treatment Not on file documented as of this encounter Visit Diagnoses Not on filedocumented in this encounter Care Teams Professional Development Manager Relationship Specialty Start Date End Date Juan Jose Ellington NP PCP - General Family Practice 06/26/18 Kenneth Garza PA-C [address] [phone] Specialist Thoracic Surgery 06/01/22 Johanna Son MD [address] [phone] Lung Cancer Technical Marketing Consultant 06/01/22 documented as of this encounter
--- OUTSIDE RECORDS SUMMARY | 2024-05-21 16:53 | XMS_ITS | Encounter Summary ---
Author Organization [facility] Address [address] [place] [address] Care Team Providers Care Band Aid Machine Operator Name Role Phone Juan Jose Ellington NP Primary Care Provider Unavail able Kenneth Garza PA-C Unavailable Johanna Son MD Unavailable Encounter Details Date Type Department Care Team Description 06/01/2022 [facility] Records [facility] Lung Screening Program [place] 299 [facility] [address] [place] [phone] Johanna Son MD 299 [facility] [address] [place] [phone] Social History Tobacco Use Types Packs/Day Years Used Date Smoking Tobacco: Former Cigarettes 1 52 1 962 - 2014 Smokeless Tobacco: Never Comments:04/15/2022: former s moker, quit 8 years ago. Averaged 1ppd since [...] on filedocumented in this encounter Care Teams Band Aid Machine Operator Relationship Specialty Start Date End Date Juan Jose Ellington NP PCP - General Family Practice 06/26/18 Kenneth Garza PA-C [address] [phone] Specialist Thoracic Surgery 06/01/22 Johanna Son MD [address] [phone] Lung Cancer Financial Aids Officer 06/01/22 documented as of this encounter
--- OUTSIDE RECORDS SUMMARY | 2024-05-21 16:53 | XMS_ITS | Encounter Summary ---
Author Organization [facility] Address [address] [place] [address] Care Team Providers Care Solar Photovoltaic Installer Name Role Phone Juan Jose Ellington NP Primary Care Provider Unavail able Kenneth Garza PA-C Unavailable [phone] Johanna Son MD Unavailable Encounter Details Date Type Department Care Team Description 06/12/2023 Lawn Care Worker Report Medical Records [address] [place] [address] Center[facility] [address] [place] [address] Social History Tobacco Use Types Packs/Day Years Used Date Smoking Tobacco: Former Cigarettes 1 52 96 - 2014 Smokeless Tobacco: Never Comments:04/15/2022: [...] filedocumented in this encounter Care Teams Solar Photovoltaic Installer Relationship Specialty Start Date End Date Juan Jose Ellington NP PCP - General Family Practice 06/26/18 Kenneth Garza PA-C [address] [phone] Specialist Thoracic Surgery 06/01/22 Johanna Son MD [address] [phone] Lung Cancer Coal Cager 06/01/22 documented as of this encounter
--- OUTSIDE RECORDS SUMMARY | 2024-05-21 16:53 | XMS_ITS | Encounter Summary ---
Author Organization [facility] Address [address] [place] [address] Phone Care Team Providers Care Public Policy Associate Name Role Phone Juan Jose Ellington HOME IMPROVEMENT ADVISOR Primary Care Provider [phone] Encounter Details Date Type Department Care Team (Late st Contact Info) Description 03/26/2024 Documentation Only [facility] [address] [place] [address] Tatyana Ritchie [address] [place] [address] Social History Tobacco Use Types [...] Visit [facility] [address] [place] [address] Cortes Rowe MD [address] [place] [address] [place] [address] documented as of this encounter Visit Diagnoses Not on filedocumented in this encounter Care Teams Public Policy Associate Relationship Specialty Start Date End Date Juan Jose Ellington NP [address] [place] [address] PCP - General 12/25/18 documented as of this encounter
--- OUTSIDE RECORDS SUMMARY | 2024-05-21 16:53 | XMS_ITS | Encounter Summary ---
Author Organization [facility] Address [address] [place] [address] Care Team Providers Care Wireless Cellular Technician Name Role Phone Juan Jose Ellington NP Primary Care Provider Unavail able Kenneth Garza PA-C Unavailable Johanna Son MD Unavailable Encounter Details Date Type Department Care Team Description 05/30/2018 Hospital Medical Records [address] [place] [address] Johanna Son MD [address] [phone] Social History Tobacco Use Types Packs/Day Years [...] on filedocumented in this encounter Care Teams Wireless Cellular Technician Relationship Specialty Start Date End Date Juan Jose Ellington NP PCP - General Family Practice 06/26/18 Kenneth Garza PA-C [address] [phone] Specialist Thoracic Surgery 06/01/22 Johanna Son MD [address] [place] [phone] Lung Cancer Print Room Worker 06/01/22 documented as of this encounter
--- OUTSIDE RECORDS SUMMARY | 2024-05-21 16:53 | XMS_ITS | Clinical Summary ---
Author Organization [facility] Address [address] [place] [address] [place] [address] Phone Care Team Providers Care Program Clinician Name Role Phone Juan Jose Ellington NP Primary Care Provider [phone] Allergies No known active allergies Medications albuterol [...] Only [facility] [address] [place] [phone] Cortes Rowe MD 03/26/2024 Documentation Only [facility] [address] [place] [phone] Tatyana Ritchie 03/21/2024 1:30 PM EST Office Visit [facility] [address] [place] [phone] Cortes Rowe MD Stage 3b chronic kidney disease (HCC) (Primary Dx) 03/19/2024 Documentation Only [facility] [address] [place] [phone] Tatyana Ritchie 03/19/2024 Documentation Only [facility] [address] [place] [address] Tatyana Ritchie from Last 3 Months Family [...] Visit [facility] [address] [place] [phone] Cortes Rowe MD [address] [place] [address] Health Maintenance Due Date Last Done [...] Urine 0-5 0 - 5 /hpf [facility] RBC, Urine None seen 0 - 2 /hpf [facility] Squamous Epithelial, Urine 0-10 0 - 10 /hpf [facility] Casts None seen None seen /lpf [facility] Bacteria, Urine None seen None seen/Few [facility] 03/26/2024 9:00 AM EST 03/26/2024 Cortes Rowe MD LAB MICROBIOLOGY - GENERAL OR DERABLES Final Result Performing Organization Address City/[facility]/ZIP Co de Phone Number [facility] [address] [place] [address] * Protein, Total, Random Urine w/Creatinine (Protein/Creat Ratio) (03/26/2024 9:00 AM EST) Creatinine, Ur 85.8 Not Estab. mg/dL [facility] Protein, Ur 7.3 Not Estab. mg/dL [facility] Urine Protein/Creatin ine Ratio 85 0 - 200 mg/g creat [facility] 03/26/2024 9:00 AM EST 03/26/2024 Cortes Rowe MD LAB URINE ORDERABLES Final Re sult Performing Organization Address City/[facility]/ZIP Co de Phone Number [facility] [address] [place] [address] * Urine Albumin / Creatinine Ratio (03/26/2024 9:00 AM EST) Albumin, Urine <3.0 Not Estab. ug/mL [facility] Albumin/Creatin ine Ratio <3 0 - 29 mg/g creat [facility] Comment: ? Normal: ?0 - ??29 ? Moderately increased: 30 - 300 ? Severely increased: ? >300 03/26/2024 9:00 AM EST 03/26/2024 us Cortes Rowe MD LAB URINE ORDERABLES Final Re sult [facility] [address] [place] [address] * (ABNORMAL) Urinalysis with microscopic (03/26/2024 9:00 AM EST) Specific [place], Urine 1.012 1.005 - 1.030 [facility] pH Urine 6.0 5.0 - 7.5 [facility] Color, Urine Yellow Yellow [facility] Appearance Urine Clear Clear [facility] WBC Esterase Urine Trace(A) Negative [facility] [phone] Protein, Ur Negative Negative/Tra ce [facility] [phone] Glucose, Ur Negative Negative [facility] Ketones, Urine Negative Negative [facility] Blood Urine Negative Negative [facility] Bilirubin Urine Negative Negative [facility] Urobilinogen Urine 0.2 0.2 - 1.0 mg/dL [facility] [phone] Nitrite, Urine Negative Negative [facility] Microscopic Examination See below: [facility] Comment:Microscopic was isidro cated and was performed. 03/26/2024 9:00 AM EST 03/26/2024 Cortes Rowe MD LAB URINE ORDERABLES Final Re sult Performing Organization Address [facility]/ZIP Co de Phone Number [facility] [address] [place] [address] * Iron Panel (Fe, TIBC, TSAT) (03/21/2024 2:21 PM EST) TIBC 374 250 - 450 ug/dL [facility] UIBC 281 118 - 369 ug/dL [facility] Iron 93 27 - 139 ug/dL [facility] Iron Saturation (TSat) 25 15 - 55 % [facility] Blood (Blood, Venous) 03/21/2024 2:21 PM EST 03/21/2024 Cortes Rowe MD LAB BLOOD ORDERABLES Final Re sult Performing Organization Address [facility] Co de Phone Number [facility] [address] [place] [address] * (ABNORMAL) Vitamin D 25 Hydroxy (03/21/2024 2:21 PM EST) Vitamin D, 25-OH, Total 29.6(L) 30.0 - 100.0 ng/mL [facility] Comment: Vitamin D deficiency has been defined by the [place] of [employer] and an Endocrine Society practice guideline as a level of serum 25-OH vitamin D less than 20 ng/mL (1,2). The Endocrine Society went on to further define vitamin D insufficiency as a level between 21 and 29 ng/mL (2). 1. IOM ([place] of [employer]). 2010. Dietary reference ?? intakes [...] Rowe MD LAB BLOOD ORDERABLES Final Re [facility] [address] [place] [address] * CBC and Differential (03/21/2024 2:21 PM EST) WBC 8.2 3.4 - 10.8 x10E3/uL [facility] RBC 4.28 3.77 - 5.28 x10E6/uL [facility] Hemoglobin 13.5 11.1 - 15.9 g/dL [facility] Hematocrit 40.5 34.0 - 46.6 % [facility] MCV 95 79 - 97 fL [facility] MCH 31.5 26.6 - 33.0 pg [facility] MCHC 33.3 31.5 - 35.7 g/dL [facility] RDW 12.9 11.7 - 15.4 % [facility] Platelets 246 150 - 450 x10E3/uL [facility] Neutrophils Relative 70 Not Estab. % [facility] Lymphocytes Relative 13 Not Estab. % [facility] Monocytes 10 Not Estab. % [facility] Eosinophils Relative 5 Not Estab. % [facility] Basophils Relative 1 Not Estab. % [facility] Neutrophils Absolute 5.8 1.4 - 7.0 x10E3/uL [facility] Lymphocytes Absolute 1.1 0.7 - 3.1 x10E3/uL [facility] Monocytes Absolute 0.8 0.1 - 0.9 x10E3/uL [facility] Eosinophils Absolute 0.4 0.0 - 0.4 x10E3/uL [facility] Basophils Absolute 0.1 0.0 - 0.2 x10E3/uL [facility] Immature Granulocytes 1 Not Estab. % [facility] Immature Grans (Absolute) 0.1 0.0 - 0.1 x10E3/uL [facility] Blood (Blood, Venous) 03/21/2024 2:21 PM EST 03/21/2024 Cortes Rowe MD LAB BLOOD ORDERABLES Final Re sult [facility] [address] [place] [address] * (ABNORMAL) PTH, Intact (03/21/2024 2:21 PM EST) PTH 87(H) 15 - 65 pg/mL [facility] Blood (Blood, Venous) 03/21/2024 2:21 PM EST 03/21/2024 Cortes Rowe MD LAB BLOOD ORDERABLES Final Re sult [facility] [address] [place] [address] * (ABNORMAL) Ferritin (03/21/2024 2:21 PM EST) Ferritin 181(H) 15 - 150 ng/mL [facility] Blood (Blood, Venous) 03/21/2024 2:21 PM EST 03/21/2024 us Cortes Rowe MD LAB BLOOD ORDERABLES Final Re sult [facility] [address] [place] [address] * (ABNORMAL) Renal Function Panel (03/21/2024 2:21 PM EST) Pathologist [facility] Glucose 82 70 - 99 mg/dL [facility] BUN 39(H) 8 - 27 mg/dL [facility] Creatinine 2.06(H) 0.57 - 1.00 mg/dL [facility] eGFR CKD-EPI CR 2020 24(L) >59 mL/min/1.7 3 [facility] BUN/Creatinine Ratio 19 12 - 28 [facility] Sodium 141 134 - 144 mmol/L [facility] Potassium 4.3 3.5 - 5.2 mmol/L [facility] Chloride 102 96 - 106 mmol/L [facility] Bicarbonate (CO2) 23 20 - 29 mmol/L [facility] Calcium 9.8 8.7 - 10.3 mg/dL [facility] Albumin 4.6 3.8 - 4.8 g/dL [facility] Phosphorus 3.6 3.0 - 4.3 mg/dL [facility] Blood (Blood, Venous) 03/21/2024 2:21 PM EST 03/21/2024 us Cortes Rowe MD LAB BLOOD ORDERABLES Final Re sult [facility] [address] [place] [phone] from Last 3 Months Insurance [place]ARE MEDICARE MEDICAID MD Care Teams Program Clinician Relationship Specialty Start Date End Date Juan Jose Ellington NP [address] [place] [address] PCP - General 12/25/18
--- OUTSIDE RECORDS SUMMARY | 2024-05-21 16:53 | XMS_ITS | Encounter Summary ---
Author Organization [facility] Address [address] [place] [address] Phone Care Team Providers Care Cigar Head Holer Name Role Phone Juan Jose Ellington NURSERY MANAGER Primary Care Provider [phone] Encounter Details Date Type Department Care Team (Late Contact Info) Description 10/12/2023 Documentation Only [facility] [address] [place] [address] Tatyana Ritchie [address] [place] [address] Social History Tobacco Use Types [...] [facility] [address] [place] [address] Cortes Rowe MD [address] [place] [address] [place] [address] documented as of this encounter Visit Diagnoses Not on filedocumented in this encounter Care Teams Cigar Head Holer Relationship Specialty Start Date End Date Juan Jose Ellington NP [address] [facility] [place] [address] PCP - General 12/25/18 documented as of this encounter
--- OUTSIDE RECORDS SUMMARY | 2024-05-21 16:53 | XMS_ITS | Encounter Summary ---
Author Organization [facility] Address [address] [place] [address] Care Team Providers Care Deposition Reporter Name Role Phone Juan Jose Ellington NP Primary Care Provider Unavail able Kenneth Garza PA-C Unavailable Johanna Son MD Unavailable Encounter Details Date Type Department Care Team Description 04/27/2018 Hospital Medical Records [address] [place] [address] Johanna Son MD [address] [phone] Social History Tobacco Use Types Packs/Day Years [...] on filedocumented in this encounter Care Teams Deposition Reporter Relationship Specialty Start Date End Date Juan Jose Ellington NP PCP - General Family Practice 06/26/18 Kenneth Garza PA-C [address] [phone] Specialist Thoracic Surgery 06/01/22 Johanna Son MD [address] [place] [phone] Lung Cancer Clinical Research Assistant 06/01/22 documented as of this encounter
--- OUTSIDE RECORDS SUMMARY | 2024-05-21 16:53 | XMS_ITS | Encounter Summary ---
Author Organization [facility] Address [address] [place] [address] Care Team Providers Care Brass Molder Helper Name Role Phone Juan Jose Ellington NP Primary Care Provider Unavail able Kenneth Garza PA-C Unavailable Johanna Son MD Unavailable Encounter Details Date Type Department Care Team Description 06/01/2022 [facility] Records [facility] Lung Screening Program [place] 299 [facility] [address] [place] [phone] Johanna Son MD 299 [facility] [address] [place] [phone] Social History Tobacco Use Types Packs/Day Years [...] on filedocumented in this encounter Care Teams Brass Molder Helper Relationship Specialty Start Date End Date Juan Jose Ellington NP PCP - General Family Practice 06/26/18 Kenneth Garza PA-C [address] [phone] Specialist Thoracic Surgery 06/01/22 Johanna Son MD [address] [phone] Lung Cancer High Lighter 06/01/22 documented as of this encounter
--- OUTSIDE RECORDS SUMMARY | 2024-05-21 16:53 | XMS_ITS | Encounter Summary ---
Author Organization [facility] Address [address] [place] [address] Care Team Providers Care Firestopper Technician Name Role Phone Juan Jose Ellington DRY KILN FEEDER Primary Care Provider [phone] Reason for Visit * Reason Onset Date Comments Appointment 05/21/2024 Open in Error Encounter Details Date Type Department Care Team (Late Contact Info) Description 05/21/2024 Telephone Lung Screening Program - [place] 299 [facility] [address] [place] [phone] Luba De Leon [place] Appointment (Open in Error) Social History Tobacco Use Types Packs/Day Years [...] * Luba De Leon MA - 05/21/2024 9:33 AM EDT Opened in Error documented in this encounter Plan of Treatment Upcoming Encounters Date Type Department Care Team (Late Contact Info) Description 08/09/2024 8:45 AM EDT Office Visit Pulmonolgy - [place] 175 [facility] [address] [place] [phone] Sarah Breaux MD 175 [facility] [address] [place] [address] documented as of this encounter Visit Diagnoses Not on filedocumented in this encounter Care Teams Firestopper Technician Relationship Specialty Start Date End Date Juan Jose Ellington NP [address] [place], [place] PCP - General 06/26/18 documented as of this encounter
--- OUTSIDE RECORDS SUMMARY | 2024-05-21 16:53 | XMS_ITS | Encounter Summary ---
Author Organization [facility] Address [address] [place] [address] Care Team Providers Care Top Carrier Name Role Phone Juan Jose Ellington NP Primary Care Provider Unavail able Kenneth Garza PA-C Unavailable Johanna Son MD Unavailable Reason for Visit * Reason Comments E-prescribe Rx Request Encounter Details Date Type Department Care Team Description 03/19/2023 Refill Pulmonology - [place] 175 [facility] [address] [place] [address] Sarah Breaux MD 175 [place] [address] E-prescribe Rx Request Social History Tobacco Use Types Packs/Day Years Used Date Smoking Tobacco: Former Cigarettes 1 52 1 962 - 2015 Smokeless Tobacco: Never Comments:04/15/2022: former s monicaker, quit 8 years ago. Averaged 1ppd since age 16. DEVAUGHN: 52 Alcohol Use Standard Drinks/Week Comments Never 0 (1 standard drink = 0.6 oz pur e alcohol) Sex Assigned at Date Recorded Not on file Job Start Date Occupation Industry Not on file Not on file Not on file documented as of this encounter Miscellaneous Notes * Telephone Encounter - Chela Renae - 03/20/2023 10:14 AM EST EAR[facility] 12/21/22 NOV 04/04/23 documented in this encounter Plan of Treatment Not on file documented as of this encounter Visit Diagnoses Diagnosis Pulmonary emphysema, unspecified emphysema type (HCC) documented in this encounter Care Teams Top Carrier Relationship Specialty Start Date End Date Juan Jose Ellington NP PCP - General Family Practice 06/26/18 Kenneth Garza PA-C [address] [address] Specialist Thoracic Surgery 06/01/22 Johanna Son MD [address] [address] Lung Cancer Contract Technician 06/01/22 documented as of this encounter
--- OUTSIDE RECORDS SUMMARY | 2024-05-21 16:53 | XMS_ITS | Encounter Summary ---
Author Organization [facility] Address [address] [place] [address] Care Team Providers Care Snow Maker Name Role Phone Juan Jose Ellington NP Primary Care Provider Unavail able Kenneth Garza PA-C Unavailable [phone] Johanna Son MD Unavailable Encounter Details Date Type Department Care Team Description 06/01/2022 Orders Only Medical Records [address] [place] [address] Johanna Son MD [address] [address] Social History Tobacco Use Types Packs/Day Years [...] on file documented as of this encounter Procedures Procedure Name Priority Date/Time Associated Diagnosis Comments OUTSIDE CT Routine 05/27/2022 documented in this encounter Results * OUTSIDE CT (05/27/2022) Johanna Son MD RADIOLOGY documented in this encounter Visit Diagnoses Not on filedocumented in this encounter Care Teams Snow Maker Relationship Specialty Start Date End Date Juan Jose Ellington NP PCP - General Family Practice 06/26/18 Kenneth Garza PA-C [address] [address] Specialist Thoracic Surgery 06/01/22 Johanna Son MD [address] [address] Lung Cancer Log Feeder 06/01/22 documented as of this encounter
== END 2024-05-21 14:05 | disposition home or self-care (01) ==
LOC: HO.HAP 14:04
PROVIDERS: Visit Provider Nurse Practitioner Family
DX: Z13.89 Encounter for screening for other disorder (principal)

== ENCOUNTER 2024-05-21 14:29 | Outpatient (REF) | payer SELFPAY ==
--- OUTSIDE RECORDS SUMMARY | 2024-05-21 17:19 | XMS_ITS | Encounter Summary ---
Author Organization [facility] Address [address] [place] [address] Care Team Providers Care Project Control Manager Name Role Phone Juan Jose Ellington COGNOS DEVELOPER Primary Care Provider + [phone] Reason for Visit * Reason Onset Date Comments Appointment 05/21/2024 Open in Error Encounter Details Date Type Department Care Team (Late Contact Info) Description 05/21/2024 Telephone Lung Screening Program - [place] 299 [facility] [address] [place] [phone] Luba De Leon [place] Appointment (Open in [...] 8:45 AM EDT Office Visit Pulmonolgy - [place] 175 [facility] [address] [place] [address] Sarah Breaux MD 175 [facility] [address] [place] [address] documented as of this encounter Visit Diagnoses Not on filedocumented in this encounter Care Teams Project Control Manager Relationship Specialty Start Date End Date Juan Jose Ellington NP [address] [place], [place] PCP - General 06/26/18 documented as of this encounter
--- OUTSIDE RECORDS SUMMARY | 2024-05-21 17:19 | XMS_ITS | Encounter Summary ---
Author Organization [facility] Address [address] [place] [address] Care Team Providers Care Mail Teller Name Role Phone Juan Jose Ellington PATIENT ACCESS COORDINATOR Primary Care Provider + [phone] Encounter Details Date Type Department Care Team ([facility] st Contact Info) Description 05/21/2024 Telephone Lung Screening Program - [address] [address] Luba De Leon [place] Social [...] 8:45 AM EDT Office Visit Pulmonolgy - [place] 175 [facility] [address] [place] [address] Sarah Breaux MD 175 [facility] [place] [address] [place] [address] documented as of this encounter Visit Diagnoses Not on filedocumented in this encounter Care Teams Mail Teller Relationship Specialty Start Date End Date Juan Jose Ellington NP [address] [place], [place] PCP - General 06/26/18 documented as of this encounter
--- OUTSIDE RECORDS SUMMARY | 2024-05-21 17:19 | XMS_ITS | Clinical Summary ---
Author Organization 175 [facility] Address [address] [place] [address] Phone Care Team Providers Care Band Saw Operator Cake Cutting Name Role Phone Juan Jose Ellington NP Primary Care Provider [phone] Allergies Active Allergy Reactions Criticality Noted Date [...] Description 05/21/2024 Telephone Lung Screening Program - [place] 299 [facility] [address] [place] [address] Luba De Leon [place] Appointment (Open in Error) 05/21/2024 Telephone Lung Screening Program - [place] 299 [facility] [address] [place] [address] Luba De Leon [place] 05/03/2024 10:10 AM EDT - 05/03/2024 11:59 PM EDT Hospital Encounter XRAY - [place] [address] [place] [address] Chronic obstructive pulmonary disease, unspecified COPD type (CMS/HCC); Sarcoidosis of lung (CMS/HCC) Discharge Disposition: Home or Self Care 05/03/2024 9:00 AM EDT Office Visit Pulmonolgy - [place] 175 [facility] [address] [place] [phone] Sarah Breaux MD Chronic obstructive pulmonary disease, unspecified COPD type (CMS/HCC) (Primary Dx); Sarcoidosis of lung (CMS/HCC); Congestive heart failure, unspecified HF chronicity, unspecified heart failure type (CMS/HCC) from Last 3 Months Immunizations Name Administration Dates Next Due Moderna SARS-CoV-2 COVID-19, mRNA, LNP-S, preservative free 05/30/2020,05/02/2020 Surgical History Surgery Date Site/Laterality Comments OTHER SURGICAL HISTORY 04/27/2018 Right PROCEDURE: IN BRNCHSC INCL FLUOR GDNCE DX W/CELL WASHG SPX; COMMENT: negative malignancy TUBAL LIGATION PROCEDURE: HISTORICAL TUBAL LIGATION OTHER SURGICAL HISTORY 05/30/2018 Right PROCEDURE: IN BRONCHOSCOPY W/CPTR-ASST IMAGE-GUIDED NAVIGATION; COMMENT: da Arthur/VATS RUL wedge resection w/extensive pneumolysis OTHER SURGICAL HISTORY PROCEDURE: IN CARDIOVERSION ELECTIVE ARRHYTHMIA EXTERNAL Medical History Medical [...] (HCC) Renal disease DX:Renal disease Leukocytosis DX:Leukocytosis Schwana nephropathy DX:Schwana n ephropathy Mediastinal lymphadenopathy DX:M ediastinal lymphadenopathy [...] 8:45 AM EDT Office Visit Pulmonolgy - [place] 175 [facility] [address] [place] [address] Sarah Breaux MD 175 [facility] [address] [address] [place] [address] Health Maintenance Due Date Last Done Comments [...] Signed Date: 05/03/2024 13:47 ET Workstation ID: [id number] Transcribed By: Self Edit Transcribed Date: 05/03/2024 [...] Signed Date: 05/03/2024 13:47 ET Workstation ID: [id number] Transcribed By: Self Edit Transcribed Date: 05/03/2024 13:46 ET us Sarah Breaux MD IMG XR PROCEDURES Final Result * CT LUNG SCREENING LOW DOSE (06/13/2023 3:45 PM EDT) Anatomical Region Laterality Modality Computed Tomogra phy 06/12/2023 11:3 6 AM EDT Narrative 06/13/2023 3:45 PM EDT [facility] Diagnostic Imaging Department [address] [place] [address] Patient: ??NIKKI HURTADO ?/Age/Sex: 1945 - 77 - F Unit#: ??[id number] ? Location/Status: ??SPDICATLS/REG CLI ? Mnemonic/Ordering Site: [...] by: ??EDGARD TORRES MD Dic Date/Time: ??06/13/23 9169 Sign date/Time: ??06/13/23 1300 Procedure Note Edgard Torres MD - 10/09/2023 [facility] Diagnostic Imaging Department [address] [place] [address] Patient: BORISRAYMONDINKKI /Age/Sex: 1945 - 77 - F Unit#: [id number] Location/Status: [facility] Mnemonic/Ordering Site: [facility] Ordering Physician: MULUGETA SU MD CT Lung [...] Insurance MEDICARE [place]ICAID - [place] Care Teams Band Saw Operator Cake Cutting Relationship Specialty Start Date End Date Juan Jose Ellington NP [address] [place], [place] PCP - General 06/26/18
--- OUTSIDE RECORDS SUMMARY | 2024-05-21 17:19 | XMS_ITS | Clinical Summary ---
Author Organization [facility], Address [address] [place] [address] [place] [address] Phone Care Team Providers Care Nutrition Club Ambassador Name Role Phone Juan Jose Ellington NP Primary Care Provider [phone] Allergies No known active allergies Medications albuterol [...] Only [facility] [address] [place] [address] Cortes Rowe MD 03/26/2024 Documentation Only [facility] [address] [place] [phone] Tatyana Ritchie 03/21/2024 1:30 PM EST Office Visit [facility] [address] [place] [phone] Cortes Rowe MD Stage 3b chronic kidney disease (HCC) (Primary Dx) 03/19/2024 Documentation Only [facility] [address] [place] [address] Tatyana Ritchie 03/19/2024 Documentation Only [facility] [address] [place] [address] Tatyana Ritchie from Last 3 Months Family [...] Visit [facility] [address] [place] [phone] Cortes Rowe MD [address] [place] [address] Health Maintenance Due Date Last Done [...] Urine 0-5 0 - 5 /hpf [facility] RBC, Urine None seen 0 - 2 /hpf [facility] Squamous Epithelial, Urine 0-10 0 - 10 /hpf [facility] Casts None seen None seen /lpf [facility] Bacteria, Urine None seen None seen/Few [facility] 03/26/2024 9:00 AM EST 03/26/2024 Cortes Rowe MD LAB MICROBIOLOGY - GENERAL OR DERABLES Final Result Performing Organization Address City/[facility]/ZIP Co de Phone Number [facility] [address] [place] [address] * Protein, Total, Random Urine w/Creatinine (Protein/Creat Ratio) (03/26/2024 9:00 AM EST) Creatinine, Ur 85.8 Not Estab. mg/dL [facility] Protein, Ur 7.3 Not Estab. mg/dL [facility] Urine Protein/Creatin ine Ratio 85 0 - 200 mg/g creat [facility] 03/26/2024 9:00 AM EST 03/26/2024 Cortes Rowe MD LAB URINE ORDERABLES Final Re sult Performing Organization Address City/[facility]/ZIP Co de Phone Number [facility] [address] [place] [address] * Urine Albumin / Creatinine Ratio (03/26/2024 9:00 AM EST) Albumin, Urine <3.0 Not Estab. ug/mL [facility] Albumin/Creatin ine Ratio <3 0 - 29 mg/g creat [facility] Comment: ? Normal: ?0 - ??29 ? Moderately increased: 30 - 300 ? Severely increased: ? >300 03/26/2024 9:00 AM EST 03/26/2024 us Cortes Rowe MD LAB URINE ORDERABLES Final Re sult [facility] [address] [place] [address] * (ABNORMAL) Urinalysis with microscopic (03/26/2024 9:00 AM EST) Specific Two Dot, Urine 1.012 1.005 - 1.030 [facility] pH Urine 6.0 5.0 - 7.5 [facility] Color, Urine Yellow Yellow [facility] Appearance Urine Clear Clear [facility] WBC Esterase Urine Trace(A) Negative [facility] Protein, Ur Negative Negative/Tra ce [facility] Glucose, Ur Negative Negative [facility] Ketones, Urine Negative Negative [facility] Blood Urine Negative Negative [facility] Bilirubin Urine Negative Negative [facility] Urobilinogen Urine 0.2 0.2 - 1.0 mg/dL [facility] Nitrite, Urine Negative Negative [facility] [phone] Microscopic Examination See below: [facility] [phone] Comment:Microscopic was isidro cated and was performed. 03/26/2024 9:00 AM EST 03/26/2024 Cortes Rowe MD LAB URINE ORDERABLES Final Re sult Performing Organization Address [facility]/ZIP Co de Phone Number [facility] [address] [place] [address] * Iron Panel (Fe, TIBC, TSAT) (03/21/2024 2:21 PM EST) TIBC 374 250 - 450 ug/dL [facility] UIBC 281 118 - 369 ug/dL [facility] Iron 93 27 - 139 ug/dL [facility] Iron Saturation (TSat) 25 15 - 55 % [facility] Blood (Blood, Venous) 03/21/2024 2:21 PM EST 03/21/2024 Cortes Rowe MD LAB BLOOD ORDERABLES Final Re sult Performing Organization Address [facility] Co de Phone Number [facility] [address] [place] [address] * (ABNORMAL) Vitamin D 25 Hydroxy (03/21/2024 2:21 PM EST) Vitamin D, 25-OH, Total 29.6(L) 30.0 - 100.0 ng/mL [facility] Comment: Vitamin D deficiency has been defined by the [place] of Medicine and an Endocrine Society practice guideline as a level of serum 25-OH vitamin D less than 20 ng/mL (1,2). The Endocrine Society went on to further define vitamin D insufficiency as a level between 21 and 29 ng/mL (2). 1. IOM ([place] of [employer]). 2010. Dietary reference ?? intakes [...] Rowe MD LAB BLOOD ORDERABLES [facility] [address] [place] [address] * CBC and Differential (03/21/2024 2:21 PM EST) WBC 8.2 3.4 - 10.8 x10E3/uL [facility] RBC 4.28 3.77 - 5.28 x10E6/uL [facility] Hemoglobin 13.5 11.1 - 15.9 g/dL [facility] Hematocrit 40.5 34.0 - 46.6 % [facility] MCV 95 79 - 97 fL [facility] MCH 31.5 26.6 - 33.0 pg [facility] MCHC 33.3 31.5 - 35.7 g/dL [facility] RDW 12.9 11.7 - 15.4 % [facility] Platelets 246 150 - 450 x10E3/uL [facility] Neutrophils Relative 70 Not Estab. % [facility] Lymphocytes Relative 13 Not Estab. % [facility] Monocytes 10 Not Estab. % [facility] Eosinophils Relative 5 Not Estab. % [facility] Basophils Relative 1 Not Estab. % [facility] Neutrophils Absolute 5.8 1.4 - 7.0 x10E3/uL [facility] Lymphocytes Absolute 1.1 0.7 - 3.1 x10E3/uL [facility] Monocytes Absolute 0.8 0.1 - 0.9 x10E3/uL [facility] Eosinophils Absolute 0.4 0.0 - 0.4 x10E3/uL [facility] Basophils Absolute 0.1 0.0 - 0.2 x10E3/uL [facility] Immature Granulocytes 1 Not Estab. % [facility] Immature Grans (Absolute) 0.1 0.0 - 0.1 x10E3/uL [facility] Blood (Blood, Venous) 03/21/2024 2:21 PM EST 03/21/2024 Cortes Rowe MD LAB BLOOD ORDERABLES Final Re sult [facility] [address] [place] [address] * (ABNORMAL) PTH, Intact (03/21/2024 2:21 PM EST) PTH 87(H) 15 - 65 pg/mL [facility] Blood (Blood, Venous) 03/21/2024 2:21 PM EST 03/21/2024 Cortes Rowe MD LAB BLOOD ORDERABLES Final Re sult [facility] [address] [place] [address] * (ABNORMAL) Ferritin (03/21/2024 2:21 PM EST) Ferritin 181(H) 15 - 150 ng/mL [facility] Blood (Blood, Venous) 03/21/2024 2:21 PM EST 03/21/2024 us Cortes Rowe MD LAB BLOOD ORDERABLES Final Re sult [facility] [address] [place] [address] * (ABNORMAL) Renal Function Panel (03/21/2024 2:21 PM EST) Pathologist [facility] Glucose 82 70 - 99 mg/dL [facility] BUN 39(H) 8 - 27 mg/dL [facility] Creatinine 2.06(H) 0.57 - 1.00 mg/dL [facility] eGFR CKD-EPI CR 2020 24(L) >59 mL/min/1.7 3 [facility] BUN/Creatinine Ratio 19 12 - 28 [facility] Sodium 141 134 - 144 mmol/L [facility] Potassium 4.3 3.5 - 5.2 mmol/L [facility] Chloride 102 96 - 106 mmol/L [facility] Bicarbonate (CO2) 23 20 - 29 mmol/L [facility] Calcium 9.8 8.7 - 10.3 mg/dL [facility] Albumin 4.6 3.8 - 4.8 g/dL [facility] Phosphorus 3.6 3.0 - 4.3 mg/dL [facility] Blood (Blood, Venous) 03/21/2024 2:21 PM EST 03/21/2024 us Cortes Rowe MD LAB BLOOD ORDERABLES Final Re sult [facility] [address] [place] [phone] from Last 3 Months Insurance [place]ICAID [place] MEDICARE MEDICARE MEDICAID [place] Care Teams Nutrition Club Ambassador Relationship Specialty Start Date End Date Juan Jose Ellington NP [address] [place] [address] PCP - General 12/25/18
--- OUTSIDE RECORDS SUMMARY | 2024-05-21 17:19 | XMS_ITS | Encounter Summary ---
Author Organization [facility] Address [address] [place] [address] Phone Care Team Providers Care Board Catcher Name Role Phone Juan Jose Ellington DAYTIME CAREGIVER Primary Care Provider [phone] Encounter Details Date Type Department Care Team (Late Contact Info) Description 10/25/2023 Documentation Only [facility] [address] [place] [address] Tatyana Ritchie [address] [place] [address] Social History Tobacco Use Types [...] Visit [facility] [address] [place] [address] Cortes Rowe MD [address] [place] [address] [place] [address] documented as of this encounter Visit Diagnoses Not on filedocumented in this encounter Care Teams Board Catcher Relationship Specialty Start Date End Date Juan Jose Ellington NP [address] [place] [address] PCP - General 12/25/18 documented as of this encounter
--- OUTSIDE RECORDS SUMMARY | 2024-05-21 17:19 | XMS_ITS | Encounter Summary ---
Author Organization [facility] Address [address] [place] [address] Phone Care Team Providers Care Diaphragm Builder Name Role Phone Juan Jose Ellington PSYCH SOCIAL WORKER Primary Care Provider Encounter Details Date Type Department Care Team (Late Contact Info) Description 10/25/2023 Documentation Only [facility] [address] [place] [address] Tatyana Ritchie [address] [place] [address] Social History Tobacco Use Types [...] Visit [facility] [address] [place] [address] Cortes Rowe MD [address] [place] [address] [place] [address] documented as of this encounter Visit Diagnoses Not on filedocumented in this encounter Care Teams Diaphragm Builder Relationship Specialty Start Date End Date Juan Jose Ellington NP [address] [place] [address] PCP - General 12/25/18 documented as of this encounter
--- OUTSIDE RECORDS SUMMARY | 2024-05-21 17:19 | XMS_ITS | Encounter Summary ---
Author Organization [facility] Address [address] [place] [address] Care Team Providers Care Bar Machine Operator Production Name Role Phone Juan Jose Ellington NP Primary Care Provider Unavail able Kenneth Garza PA-C Unavailable [phone] Johanna Son MD Unavailable Encounter Details Date Type Department Care Team Description 04/27/2022 Release of Information Medical Records [address] [place] [address] Abstract, Provider Social History Tobacco Use Types [...] on filedocumented in this encounter Care Teams Bar Machine Operator Production Relationship Specialty Start Date End Date Juan Jose Ellington NP PCP - General Family Practice 06/26/18 Kenneth Garza PA-C [address] [address] Specialist Thoracic Surgery 06/01/22 Johanna Son MD [address] [place] [address] Lung Cancer Pipe Fitter 06/01/22 documented as of this encounter
--- OUTSIDE RECORDS SUMMARY | 2024-05-21 17:19 | XMS_ITS | Encounter Summary ---
Author Organization [facility] Address [address] [place] [address] Care Team Providers Care Wire Stitcher Name Role Phone Juan Jose Ellington NP Primary Care Provider Unavail able Kenneth Garza PA-C Unavailable [phone] Johanna Son MD Unavailable Reason for Visit * Reason Comments E-prescribe Rx Request Encounter Details Date Type Department Care Team Description 03/19/2023 Refill Pulmonology - [place] 175 [facility] [address] [place] [address] Sarah Breaux MD [address] [place] [address] E-prescribe Rx Request Social History [...] (HCC) documented in this encounter Care Teams Wire Stitcher Relationship Specialty Start Date End Date Juan Jose Ellington NP PCP - General Family Practice 06/26/18 Kenneth Garza PA-C [address] [address] Specialist Thoracic Surgery 06/01/22 Johanna Son MD [address] [address] Lung Cancer Snowboard Designer 06/01/22 documented as of this encounter
--- OUTSIDE RECORDS SUMMARY | 2024-05-21 17:19 | XMS_ITS | Encounter Summary ---
Author Organization [facility] Address [address] [place] [address] Phone Care Team Providers Care Ob/Gyn Doctor Name Role Phone Juan Jose Ellington SAP HANA ARCHITECT Primary Care Provider [phone] Encounter Details Date Type Department Care Team (Late Contact Info) Description 10/12/2023 Documentation Only [facility] [address] [place] [address] Tatyana Ritchie [address] [place] [address] Social History Tobacco Use Types [...] [facility] [address] [place] [address] Cortes Rowe MD [address] [place] [address] [place] [address] documented as of this encounter Visit Diagnoses Not on filedocumented in this encounter Care Teams Ob/Gyn Doctor Relationship Specialty Start Date End Date Juan Jose Ellington NP [address] [facility] [place] [address] PCP - General 12/25/18 documented as of this encounter
--- OUTSIDE RECORDS SUMMARY | 2024-05-21 17:19 | XMS_ITS | Encounter Summary ---
Author Organization [facility] Address [address] [place] [address] Care Team Providers Care Medical Legal Investigator Name Role Phone Juan Jose Ellington NP Primary Care Provider Unavail able Kenneth Garza PA-C Unavailable [phone] Johanna Son MD Unavailable Encounter Details Date Type Department Care Team Description 06/14/2023 Orders Only [facility] Lung Screening Program [place] 299 [facility] [address] [place] [phone] Johanna Son MD 299 [facility] [address] [place] [id number] History of tobacco abuse Social History Tobacco Use Types Packs/Day Years Used Date Smoking Tobacco: Former Cigarettes 1 52 1 962 - 2015 Smokeless Tobacco: Never Comments:04/15/2022: former s moker, [...] Name Priority Date/Time Associated Diagnosis Comments CT LOW DOSE LUNG SCREEN ANNUAL Routine 06/12/2023 History of tobacco abuse documented in this encounter Results * CT LOW DOSE LUNG SCREEN ANNUAL (06/12/2023) Johanna Son MD CT SCANS documented in this encounter Visit Diagnoses Diagnosis History of tobacco abuse Personal history of tobacco use, presenting hazards to health documented in this encounter Care Teams Medical Legal Investigator Relationship Specialty Start Date End Date Juan Jose Ellington NP PCP - General Family Practice 06/26/18 Kenneth Garza PA-C [address] [address] Specialist Thoracic Surgery 06/01/22 Johanna Son MD [address] [address] Lung Cancer Vessel Master 06/01/22 documented as of this encounter
--- OUTSIDE RECORDS SUMMARY | 2024-05-21 17:19 | XMS_ITS | Encounter Summary ---
Author Organization [facility] Address [address] [place] [address] Phone Care Team Providers Care Manager Corporate Name Role Phone Juan Jose Ellington SENIOR MECHANICAL PROJECT ENGINEER Primary Care Provider [phone] Encounter Details Date Type Department Care Team (Late st Contact Info) Description 03/26/2024 Documentation Only [facility] [address] [place] [address] Tatyana Ritchie [address] [place] [address] Social History Tobacco Use Types [...] Visit [facility] [address] [place] [address] Cortes Rowe MD [address] [place] [address] [place] [address] documented as of this encounter Visit Diagnoses Not on filedocumented in this encounter Care Teams Manager Corporate Relationship Specialty Start Date End Date Juan Jose Ellington NP [address] [facility] [place] [address] PCP - General 12/25/18 documented as of this encounter
--- OUTSIDE RECORDS SUMMARY | 2024-05-21 17:19 | XMS_ITS | Encounter Summary ---
Author Organization [facility] Address [address] [place] [address] Care Team Providers Care Survey Chief Name Role Phone Juan Jose Ellington NP Primary Care Provider Unavail able Kenneth Garza PA-C Unavailable Johanna Son MD Unavailable Encounter Details Date Type Department Care Team Description 02/25/2019 Release of Information Medical Records [address] [place] [id number] Abstract, Provider Social History Tobacco Use Types [...] on filedocumented in this encounter Care Teams Survey Chief Relationship Specialty Start Date End Date Juan Jose Ellington NP PCP - General Family Practice 06/26/18 Kenneth Garza PA-C [address] [phone] Specialist Thoracic Surgery 06/01/22 Johanna Son MD [address] [address] Lung Cancer Case Supervisor 06/01/22 documented as of this encounter
--- OUTSIDE RECORDS SUMMARY | 2024-05-21 17:19 | XMS_ITS | Encounter Summary ---
Author Organization [facility] Address [address] [place] [address] Phone Care Team Providers Care Public Works Director Name Role Phone Juan Jose Ellington CLEANING SPECIALIST Primary Care Provider [phone] Encounter Details Date Type Department Care Team (Late Contact Info) Description 10/25/2023 Documentation Only [facility] [address] [place] [address] Tatyana Ritchie [address] [place] [address] Social History Tobacco Use Types [...] [facility] [address] [place] [address] Cortes Rowe MD [address] [place] [address] [place] [address] documented as of this encounter Visit Diagnoses Not on filedocumented in this encounter Care Teams Public Works Director Relationship Specialty Start Date End Date Juan Jose Ellington NP [address] [facility] [place] [address] PCP - General 12/25/18 documented as of this encounter
--- OUTSIDE RECORDS SUMMARY | 2024-05-21 17:19 | XMS_ITS | Encounter Summary ---
Author Organization [facility] Address [address] [place] [address] Care Team Providers Care Last Ironer Name Role Phone Juan Jose Ellington NP Primary Care Provider Unavail able Kenneth Garza PA-C Unavailable [phone] Johanna Son MD Unavailable Encounter Details Date Type Department Care Team Description 05/30/2018 Hospital Medical Records [address] [place] [address] Johanna Son MD [address] [id number] Social History Tobacco Use Types Packs/Day Years [...] on filedocumented in this encounter Care Teams Last Ironer Relationship Specialty Start Date End Date Juan Jose Ellington NP PCP - General Family Practice 06/26/18 Kenneth Garza PA-C [address] [phone] Specialist Thoracic Surgery 06/01/22 Johanna Son MD [address] [place] [phone] Lung Cancer Traffic Law Attorney 06/01/22 documented as of this encounter
--- OUTSIDE RECORDS SUMMARY | 2024-05-21 17:19 | XMS_ITS | Encounter Summary ---
Author Organization [facility] Address [address] [place] [address] Care Team Providers Care Municipal Engineer Name Role Phone Juan Jose Ellington NP Primary Care Provider Unavail able Kenneth Garza PA-C Unavailable Johanna Son MD Unavailable Encounter Details Date Type Department Care Team Description 06/01/2022 [facility] Records [facility] Lung Screening Program [place] 299 [facility] [address] [place] [phone] Johanna Son MD 299 [facility] [place] [place] [phone] Social History Tobacco Use Types Packs/Day Years [...] on filedocumented in this encounter Care Teams Municipal Engineer Relationship Specialty Start Date End Date Juan Jose Ellington NP PCP - General Family Practice 06/26/18 Kenneth Garza PA-C [address] [phone] Specialist Thoracic Surgery 06/01/22 Johanna Son MD [address] [phone] Lung Cancer Pv Installer Tech 06/01/22 documented as of this encounter
--- OUTSIDE RECORDS SUMMARY | 2024-05-21 17:19 | XMS_ITS | Encounter Summary ---
Author Organization [facility] Address [address] [place] [address] Care Team Providers Care Rib Trim Separator Name Role Phone Juan Jose Ellington NP Primary Care Provider Unavail able Kenneth Garza PA-C Unavailable [phone] Johanna Son MD Unavailable Reason for Visit * Reason Onset Date Comments Note, Other 03/01/2022 Encounter Details Date Type Department Care Team Description 03/01/2022 Refill Pulmonology - [place] 175 [facility] [address] [place] [phone] Sarah Breaux MD [address] [place] [address] Note, Other Social History Tobacco [...] N/A Patients current insurance carrier is: Payor: MEDICARE-[employer] / Plan[place] / Product Type: MEDICARE [id number] documented in this encounter Plan of Treatment Not on file documented as of this encounter Visit Diagnoses Diagnosis Pulmonary emphysema, unspecified emphysema type (HCC) Sarcoidosis of lung (HCC) Sarcoidosis documented in this encounter Care Teams Rib Trim Separator Relationship Specialty Start Date End Date Juan Jose Ellington NP PCP - General Family Practice 06/26/18 Kenneth Garza PA-C [address] [phone] Specialist Thoracic Surgery 06/01/22 Johanna Son MD [address] [phone] Lung Cancer Poultry Debeaker 06/01/22 documented as of this encounter
--- OUTSIDE RECORDS SUMMARY | 2024-05-21 17:19 | XMS_ITS | Encounter Summary ---
Author Organization [facility] Address [address] [place] [address] Care Team Providers Care Bar Machine Operator Multiple Spindle Name Role Phone Juan Jose Ellington NP Primary Care Provider Unavail able Kenneth Garza PA-C Unavailable [phone] Johanna Son MD Unavailable Encounter Details Date Type Department Care Team Description 05/27/2022 Investigations Director Report Medical Records [address] [place] [address] [facility] [address] [place] [address] Social History Tobacco Use Types Packs/Day Years Used Date Smoking Tobacco: Former Cigarettes 1 52 962 - 2014 Smokeless Tobacco: Never Comments:04/15/2022: [...] this encounter Care Teams Bar Machine Operator Multiple Spindle Relationship Specialty Start Date End Date Juan Jose Ellington NP PCP - General Family Practice 06/26/18 Kenneth Garza PA-C [address] [phone] Specialist Thoracic Surgery 06/01/22 Johanna Son MD [address] [phone] Lung Cancer Master Welder 06/01/22 documented as of this encounter
--- OUTSIDE RECORDS SUMMARY | 2024-05-21 17:19 | XMS_ITS | Encounter Summary ---
Author Organization [facility] Address [address] [place] [address] Care Team Providers Care Geospatial Technician Name Role Phone Juan Jose Ellington NP Primary Care Provider Unavail able Kenneth Garza PA-C Unavailable Johanna Son MD Unavailable Reason for Visit * Reason Onset Date Comments refill request 09/06/2018 Encounter Details Date Type Department Care Team Description 09/06/2018 Refill Pulmonology - [place] 175 [facility] [address] [place] [phone] Sarah Breaux MD [address] [place] [address] refill request Social History Tobacco Use Types Packs/Day Years Used Date Smoking Tobacco: Former Smokeless Tobacco: Never Sex Assigned at Date Recorded Not on file Job Start Date Occupation Industry Not on file Not on file Not on file documented as of this encounter Miscellaneous Notes * Telephone Encounter - Leslie Villalobos LPN - 09/06/2018 9:40 AM EDT Fwd to the correct pool. * Telephone Encounter - Ava Noble - 09/06/2018 9:20 AM EDT [place], calling for albuterol inhaler, Please call [phone] documented in this encounter Plan of Treatment Not on file documented as of this encounter Visit Diagnoses Diagnosis Pulmonary emphysema, unspecified emphysema type (HCC)- Primary documented in this encounter Care Teams Geospatial Technician Relationship Specialty Start Date End Date Juan Jose Ellington NP PCP - General Family Practice 06/26/18 Kenneth Garza PA-C [address] [phone] Specialist Thoracic Surgery 06/01/22 Johanna Son MD [address] [phone] Lung Cancer Sheet Manufacturing Supervisor 06/01/22 documented as of this encounter
--- OUTSIDE RECORDS SUMMARY | 2024-05-21 17:19 | XMS_ITS | Clinical Summary ---
Author Organization [facility] Address [address] [place] [address] Care Team Providers Care Ribbon Blocker Name Role Phone Juan Jose Ellington NP Primary Care Provider Unavail able Kenneth Garza PA-C Unavailable [phone] Johanna Son MD Unavailable Allergies Active Allergy Reactions Severity Noted Date Comments Sulfa Drugs 07/25/2018 No reaction documented. Medications Medication Sig Dispensed Refills Start Date End Date Status simvastatin (ZOCOR) 20 MG tablet Take 20 mg by mouth at bedtime. 0 Active Acetaminophen (TYLENOL) 325 MG Cap Take by mouth. 0 Active Multiple Vitamins-Minerals (CENTRUM OR) Take by mouth. 0 Active lamoTRIgine 50 MG TABLET DISPERSIBLE Take by mouth at bedtime. 0 Active olanzapine (ZYPREXA) 7.5 MG tablet Take 7.5 mg by mouth at bedtime. 0 Active Apixaban 5 MG Tab Take by mouth. 0 Act devyn furosemide (LASIX) 20 MG tablet Take 1 Tablet by mouth every other day. Mon,mon and monday 0 Active Melatonin 10 MG TABLET DISPERSIBLE Take by mouth. 0 Active Metoprolol Succinate 25 MG Capsule ER 24 Hour Sprinkle Take by mouth. 0 Active amiodarone (PACERONE) 200 MG tablet Take 1 Tablet by mouth daily. 0 Active HYDROXYZINE HCL OR Take 10 mg by mouth daily. 0 Active Ventolin HFA 108 (90 Base) MCG/ACT Aero SolnIndications:Pulmon bridgett emphysema, unspecified emphysema type (HCC) INHALE 2 PUFFS INTO THE LUNGS EVERY 4 HOURS NEEDED FOR COUGH OR WHEEZING FOR UP TO 30 DAYS. 8.5 g 11 03/21/2023 Active Active Problems Problem Noted Date COPD (chronic obstructive pulmonary dise ase) 10/11/2018 Sarcoidosis of lung 10/11/2018 Pulmonary nodule 10/11/2018 Overview: RUL-05/30/18 S/p VATS & wedge resection-no malignancy Bipolar disorder 10/11/2018 Hypertension 10/11/2018 Hyperlipidemia 10/11/2018 Immunizations Name Administration Dates Next Due COVID-19 (Moderna) PT Reported 05/30/2020,2020 Family History Medical History Relation Name Comments Cervical Cancer Daughter 1 Tatyana Scleroderma Daughter 2 Substance use disorder Other Lymphoma Sister 1 Hodgkins Lymphoma Sister 2 non-Hodgkins Relation Name Status Comments Daughter 1 Tatyana Daughter 2 Other Sister 1 Sister 2 Social History Tobacco Use Types Packs/Day Years Used Date Smoking Tobacco: Former Cigarettes 1 52 1 962 - 2015 Smokeless Tobacco: Never Tobacco Cessation:Counseling Given: Not Answered Comments:04/15/2022: former smoker, quit 8 years ago. Averaged 1ppd since age 16. DEVAUGHN: 52 Alcohol Use Standard Drinks/Week Comments Never 0 (1 standard drink = 0.6 oz pur e alcohol) Sex Assigned at Date Recorded Not on file Job Start Date Occupation Industry Not on file Not on file Not on file Last Filed Vital Signs Vital Sign Reading Time Taken Comments Blood Pressure 104/70 05/03/2023 9:26 AM EDT Pulse 60 05/03/2023 9:26 AM EDT Temperature 36.2 ??C (97.1 ??F) 05/03/2023 9:26 AM ED T Respiratory Rate 20 05/03/2023 9:26 AM EDT Oxygen Saturation 94% 05/03/2023 9:26 AM EDT Inhaled Oxygen Concentration - - Weight 84.2 kg (185 lb 9.6 oz) 05/03/2023 9:26 A M EDT Height 154.9 cm (5' 1 ) 05/03/2023 9:26 AM EDT Body Mass Index 35.07 05/03/2023 9:26 AM EDT Plan of Treatment Health Maintenance Due Date Last Done Comments DEPRESSION SCREEN 1957 DTAP/TDAP/TD (1 - Tdap) 1964 CHOLESTEROL SCREENING 1965 MAMMOGRAM 1985 SHINGLES VACCINE (1 of 2) 11/12/1995 BONE DENSITY SCREENING 2010 FALL RISK ASSESSMENT 2010 PNEUMOCOCCAL VACCINE (2 - PCV) 03/09/2017 03/09/2016 , 02/20/2015 Covid-19 Vaccine (3 - season) 10/22/202311/2020, 05/02/2020 INFLUENZA (#1) 2023 11/20/2017, 03/09/2016 BMI CHECK/ADVISE 02/21/2024 Lung Cancer Screening (Low Dose CT) 06/11/2024 06/12/2023, 04/15/2022, 03/23/2018 Care Teams Ribbon Blocker Relationship Specialty Start Date End Date Juan Jose Ellington NP PCP - General Family Practice 06/26/18 Kenneth Garza PA-C [address] [phone] Specialist Thoracic Surgery 06/01/22 Johanna Son MD [address] [phone] Lung Cancer Operations Executive 06/01/22
--- OUTSIDE RECORDS SUMMARY | 2024-05-21 17:19 | XMS_ITS | Encounter Summary ---
Author Organization [facility] Address [address] [place] [address] Care Team Providers Care Fire Extinguisher Charger Name Role Phone Juan Jose Ellington NP Primary Care Provider Unavail able Kenneth Garza PA-C Unavailable Johanna Son MD Unavailable Encounter Details Date Type Department Care Team Description 07/23/2019 Refill Pulmonology - [place] 175 [facility] [address] [place] [phone] Sarah Breaux MD [address] [place] [address] Social History Tobacco Use Types Packs/Day Years Used Date Smoking Tobacco: Former Cigarettes 1 53 1 2012 Smokeless Tobacco: Never Sex Assigned at Date Recorded Not on file Job Start Date Occupation Industry Not on file Not on file Not on file documented as of this encounter Plan of Treatment Not on file documented as of this encounter Visit Diagnoses Diagnosis Chronic obstructive pulmonary disease, unspecified COPD type (HCC) documented in this encounter Care Teams Fire Extinguisher Charger Relationship Specialty Start Date End Date Juan Jose Ellington NP PCP - General Family Practice 06/26/18 Kenneth Garza PA-C 299 [facility] [address] [place] [phone] Specialist Thoracic Surgery 06/01/22 Johanna Son MD [address] [phone] Lung Cancer Life Sciences Manager 06/01/22 documented as of this encounter
--- OUTSIDE RECORDS SUMMARY | 2024-05-21 17:19 | XMS_ITS | Encounter Summary ---
Author Organization [facility] Address [address] [place] [address] Care Team Providers Care Sanitary Napkin Machine Tender Name Role Phone Clarence Ellington NP Primary Care Provider Unavail able Kenneth Garza PA-C Unavailable [phone] Johanna Son MD Unavailable Reason for Visit * Reason Onset Date Comments medication problems 09/04/2018 Encounter Details Date Type Department Care Team Description 09/04/2018 Telephone Pulmonology - [place] 175 [facility] [address] [place] [phone] Sarah Breaux MD [address] [place] [address] medication problems Social History Tobacco Use Types Packs/Day Years Used Date Smoking Tobacco: Former Smokeless Tobacco: Never Sex Assigned at Date Recorded Not on file Job Start Date Occupation Industry Not on file Not on file Not on file documented as of this encounter Miscellaneous Notes * Telephone Encounter - Ava Aide - 09/04/2018 3:20 PM EDT What is the name of the medication patient is having a problem with?: Umeclidinium-Vilanterol (ANORO ELLIPTA) 62.5-25 MCG/INH AEROSOL POWDER,BREATH ACTIVATED What is the problem?: needs alternative joni Is the patient calling about the problem? YES If the patient is not the caller who is? Is this a NEW medication?: YES How long has the patient been taking this medication? Who prescribed this medication for the patient? Dr. Breaux Who is patients PCP?: CLARENCE ELLINGTON [place] / [place] / Product Type: MEDICARE [id number] documented in this encounter Plan of Treatment Not on file documented as of this encounter Visit Diagnoses Not on filedocumented in this encounter Care Teams Sanitary Napkin Machine Tender Relationship Specialty Start Date End Date Clarence Ellington NP PCP - General Family Practice 06/26/18 Kenneth Garza PA-C [address] [phone] Specialist Thoracic Surgery 06/01/22 Johanna Son MD [address] [phone] Lung Cancer Aircraft Stress Analyst 06/01/22 documented as of this encounter
--- OUTSIDE RECORDS SUMMARY | 2024-05-21 17:19 | XMS_ITS | Encounter Summary ---
Author Organization [facility] Address [address] [place] [address] Phone Care Team Providers Care Community Service Representative Name Role Phone Juan Jose Ellington WEIGHT COUNT OPERATOR Primary Care Provider [phone] Encounter Details Date Type Department Care Team (Late Contact Info) Description 03/19/2024 Documentation Only [facility] [address] [place] [address] Tatyana Ritchie [address] [place] [address] Social History Tobacco Use Types [...] Visit [facility] [address] [place] [address] Cortes Rowe MD [address] [place] [address] [place] [address] documented as of this encounter Visit Diagnoses Not on filedocumented in this encounter Care Teams Community Service Representative Relationship Specialty Start Date End Date Juan Jose Ellington NP [address] [facility] [place] [address] PCP - General 12/25/18 documented as of this encounter
--- OUTSIDE RECORDS SUMMARY | 2024-05-21 17:19 | XMS_ITS | Encounter Summary ---
Author Organization [facility] Address [address] [place] [address] Phone Care Team Providers Care Patent Searcher Name Role Phone Juan Jose Ellington ASSISTANT SITE MANAGER Primary Care Provider [phone] Encounter Details Date Type Department Care Team (Late Contact Info) Description 03/19/2024 Documentation Only [facility] [address] [place] [address] Tatyana Ritchie [address] [place] [address] Social History Tobacco Use Types [...] Visit [facility] [address] [place] [address] Cortes Rowe MD [address] [place] [address] [place] [address] documented as of this encounter Visit Diagnoses Not on filedocumented in this encounter Care Teams Patent Searcher Relationship Specialty Start Date End Date Juan Jose Ellington NP [address] [facility] [place] [address] PCP - General 12/25/18 documented as of this encounter
== END 2024-05-21 14:30 | disposition home or self-care (01) ==
LOC: HO.HAP 14:29
PROVIDERS: Visit Provider Nurse Practitioner Family
DX: Z46.1 Encounter for fitting and adjustment of hearing aid (principal); H90.3 Sensorineural hearing loss, bilateral
CPT/HCPCS: V5267

== ENCOUNTER 2024-05-24 10:31 | Outpatient (AMB) | payer MEDICARE, MEDICAID, SELFPAY ==
--- NOTE | 2024-05-24 10:44 | A.OFFVIS_ITS ---
Intake Visit Reasons: Follow up Intake Note: Patient presents follow up TD Allergies Sulfa (Sulfonamide Antibiotics) [SULFA (SULFONAMIDE ANTIBIOTICS)] Allergy (Severe, Verified 05/24/24 10:45) RASH, Anaphylaxis HPI Comments Details: 78-yr-old female presents for f/u visit. Pt is accompanied by her dtr. Pt did have an interval hospitalization x's 1 week for joi PNA. Now requiring home O2. She was d/c'd directly home w/ home PT and NSG. PT just discharged her as she was not making gains. Dtr is trying to help her walk every day- and doing the PT exercises. She is wary to try out-PT as it is difficult to get her in/out of the house. She continues to have BUE symmetric tremor.- someday worse than others. Today her legs can be shaky and weak. Sometimes she mumbles and can sometimes lose her voice- also d/t increased phlegm r/t her COPD. Has oral movements- pt does not notice this. She still may make a vocal noise- pt is unaware of this. Sometimes dtr notice right eye closing. She has had 1 interval falls- unsure why/how. She is now staying w/ her dtr. She is forgetful. She repeats herself. She denies hyposmia. Dtr endorses some sleep talking, but denies punching/kicking. Previously tried CD-LD 25-100mg- 1/2 tab caused dyskinesias. [facility] Medical History Paroxysmal atrial fibrillation Emphysema of lung Tardive dyskinesia Coarse tremors Hypersomnia Snoring SHARON (acute kidney injury) Mediastinal lymphadenopathy Atrial fibrillation Dyslipidemia Kidney disease Leukocytosis Necrotizing granulomatous inflammation of lung Bipolar 1 disorder Vitamin D deficiency COPD (chronic obstructive pulmonary disease) Sarcoidosis HTN (hypertension) [facility] nephropathy Surgical History History of cardioversion History of bronchoscopy Family History Child No Financial Resp No problems noted. 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 Expression: Decreased expression and blink Voice: Soft/hoarse Tremor: Bilateral intermittent rest tremor Tone: Mild BUE tone in elbows Dyskinesia: Mild lingual-buccal movements. FFM: Mildly decreased Foot taps: Mildly decreased Gait: Sitting in wheelchair with upright posture Psych: Pleasant affect with upright posture Assessment & Plan Assessment & Plan (1) Tardive dyskinesia: Comment: Mild Code(s): G24.01 - Drug induced subacute dyskinesia Category: Medical (2) Coarse tremors: Comment: tremors are likely related to exposure to lithium, amiodarone and olanzapine, ? tardive tremors, tardive parkinsonism. she does have some extrapyramidal features. 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 Code(s): G25.2 - Other specified forms of tremor Category: Medical (3) Gait disorder: Comment: ? neuroleptic PDism Code(s): R26.9 - Unspecified abnormalities of gait and mobility Category: Medical Plan Discussed diagnostic criteria for neuroleptic induced secondary parkinsonism versus idiopathic Parkinson's disease, which can include although it is not entirely sensitive, a DaTSCAN- however this test can be limited due to her chronic kidney disease, and results would not impact treatment decisions. Pt is not interested in trying new medications at this point. Monitor TD and PDism s/s. Advised patient to increase physical activity, stress importance of doing PT exercises daily now that home PT has been a discharge. Patient is not interested in doing outpatient PT at this time. Continue to use walker, and wheelchair for longer distances. Metoprolol may be helping tremor- continue per cardiology. Previous trials- CD-LD 25-100mg 1/2 tab bid- caused dyskinesias. Contraindications- would avoid Ingreza/Austedo d/t a-fib dx. Future considerations- trial of long-acting carbidopa levodopa low-dose dopamine agonist. f/u in 6 months or sooner prn. Coding Level of Care Code Est Pt Level 4 (73149) Diagnoses Tardive dyskinesia G24.01 Coarse tremors G25.2 Gait disorder R26.9
--- OUTSIDE RECORDS SUMMARY | 2024-05-24 12:01 | XMS_ITS | Clinical Summary ---
Author Organization 175 [facility] Address 175 [place] [address] Phone Care Team Providers Care Data Entry Coordinator Name Role Phone Juan Jose Ellington NP Primary Care Provider [phone] Allergies Active Allergy Reactions Criticality Noted Date [...] Description 05/21/2024 Telephone Lung Screening Program - [place] 299 [facility] [address] [place] [address] Luba De Leon [place] Appointment (Open in Error) 05/21/2024 Telephone Lung Screening Program - [place] 299 [facility] [address] [place] [address] Luba De Leon [place] 05/03/2024 10:10 AM EDT - 05/03/2024 11:59 PM EDT Hospital Encounter XRAY - [place] [address] [place] [address] Chronic obstructive pulmonary disease, unspecified COPD type (CMS/HCC); Sarcoidosis of lung (CMS/HCC) Discharge Disposition: Home or Self Care 05/03/2024 9:00 AM EDT Office Visit Pulmonolgy - [place] 175 [facility] [address] [place] [phone] Sarah Breaux MD Chronic obstructive pulmonary disease, unspecified COPD type (CMS/HCC) (Primary Dx); Sarcoidosis of lung (CMS/HCC); Congestive heart failure, unspecified HF chronicity, unspecified heart failure type (CMS/HCC) from Last 3 Months Immunizations Name Administration Dates Next Due Moderna SARS-CoV-2 COVID-19, mRNA, LNP-S, preservative free 05/30/2020,05/02/2020 Surgical History Surgery Date Site/Laterality Comments OTHER SURGICAL HISTORY 04/27/2018 Right PROCEDURE: CT BRNCHSC INCL FLUOR GDNCE DX W/CELL WASHG SPX; COMMENT: negative malignancy TUBAL LIGATION PROCEDURE: HISTORICAL TUBAL LIGATION OTHER SURGICAL HISTORY 05/30/2018 Right PROCEDURE: CT BRONCHOSCOPY W/CPTR-ASST IMAGE-GUIDED NAVIGATION; COMMENT: da Arthur/VATS RUL wedge resection w/extensive pneumolysis OTHER SURGICAL HISTORY PROCEDURE: CT CARDIOVERSION ELECTIVE ARRHYTHMIA EXTERNAL Medical History Medical [...] (HCC) Renal disease DX:Renal disease Leukocytosis DX:Leukocytosis [place] nephropathy DX:[place] n ephropathy Mediastinal lymphadenopathy DX:M ediastinal lymphadenopathy [...] 8:45 AM EDT Office Visit Pulmonolgy - [place] 175 [facility] [address] [place] [address] Sarah Breaux MD 175 [facility] [address] [place] [address] Health Maintenance Due Date Last Done Comments [...] , 02/20/2021, Additional history exists RSV Immunization Adult Patients Completed 01/22/2024 HIB Vaccines Aged Out No [...] unspecified COPD type (CMS/HCC) Sarcoidosis of lung ([facility] CT LUNG SCREENING LOW DOSE Routine 06/13/2023 [...] Signed Date: 05/03/2024 13:47 ET Workstation ID: [id number] Transcribed By: Self Edit Transcribed Date: 05/03/2024 [...] Signed Date: 05/03/2024 13:47 ET Workstation ID: [id number] Transcribed By: Self Edit Transcribed Date: 05/03/2024 13:46 ET us Sarah Breaux MD IMG XR PROCEDURES Final Result * CT LUNG SCREENING LOW DOSE (06/13/2023 3:45 PM EDT) Anatomical Region Laterality Modality Computed Tomogra phy 06/12/2023 11:3 6 AM EDT Narrative 06/13/2023 3:45 PM EDT [facility] Diagnostic Imaging Department [address] [place], [place] [id number] Patient: ??NIKKI HURTADO ?/Age/Sex: 1945 - 77 - F Unit#: ??[id number] ? Location/Status: ??SPDICATLS/REG CLI ? Mnemonic/Ordering Site: [...] by: ??EDGARD TORRES MD Dic Date/Time: ??06/13/23 1512 Sign date/Time: ??06/13/23 6721 Procedure Note Edgard Torres MD - 10/09/2023 [facility] Diagnostic Imaging Department [address] [place] [address] Patient: NIKKI HURTADO /Age/Sex: 1945 - 77 - F Unit#: [id number] Location/Status: [facility] Mnemonic/Ordering Site: [facility] Ordering Physician: JOHANNA SU MD CT Lung [...] Date/Time: 06/13/23 1514 Sign date/Time: 06/13/23 1545 Johanna Su MD IMG CT PROCEDURES Final Result from Last 3 Months or Most Recently Relevant to Health Maintenance Insurance MEDICARE [place]ICAID - [place] Care Teams Data Entry Coordinator Relationship Specialty Start Date End Date Juan Jose Ellington NP [address] [facility] [place] PCP - General 06/26/18
--- OUTSIDE RECORDS SUMMARY | 2024-05-24 12:01 | XMS_ITS | Encounter Summary ---
Author Organization [facility] Address [address] [place] [address] Care Team Providers Care Heel Builder Name Role Phone Juan Jose Ellington NP Primary Care Provider Unavail able Kenneth Garza PA-C Unavailable Johanna Son MD Unavailable Reason for Visit * Reason Comments E-prescribe Rx Request Encounter Details Date Type Department Care Team Description 10/05/2019 Refill Pulmonology - [place] [address] [facility] [address] [place] [address] Sarah Breaux MD [address] [place] [address] E-prescribe Rx Request Social History Tobacco Use Types Packs/Day Years Used Date Smoking Tobacco: Former Cigarettes 1 53 1 962 2012 Smokeless Tobacco: Never Sex Assigned at Date Recorded Not on file Job Start Date Occupation Industry Not on file Not on file Not on file documented as of this encounter Miscellaneous Notes * Telephone Encounter - Rose Varela - 10/09/2019 10:41 AM EDT EARL: 04/26/2019 NOV: 11/01/2019 30 day supply. documented in this encounter Plan of Treatment Not on file documented as of this encounter Visit Diagnoses Diagnosis Pulmonary emphysema, unspecified emphysema type (HCC) documented in this encounter Care Teams Heel Builder Relationship Specialty Start Date End Date Juan Jose Ellington NP PCP - General Family Practice 06/26/18 Kenneth Garza PA-C [address] [address] Specialist Thoracic Surgery 06/01/22 Johanna Son MD [address] [address] Lung Cancer Load Manager 06/01/22 documented as of this encounter
--- OUTSIDE RECORDS SUMMARY | 2024-05-24 12:01 | XMS_ITS | Encounter Summary ---
Author Organization [facility] Address [address] [place] [address] Care Team Providers Care Compugraph Operator Name Role Phone Juan Jose Ellington NP Primary Care Provider Unavail able Kenneth Garza PA-C Unavailable [phone] Johanna Son MD Unavailable Reason for Visit * Reason Onset Date Comments Provider Call Back 04/29/2019 Encounter Details Date Type Department Care Team Description 04/29/2019 Telephone Pulmonology - [place] 175 [facility] [address] [place] [address] Sarah Breaux MD [address] [place] [address] Provider Call Back Social History [...] call back: Patient sister call and said [facility] said the last time she has a [...] on filedocumented in this encounter Care Teams Compugraph Operator Relationship Specialty Start Date End Date Juan Jose Ellington NP PCP - General Family Practice 06/26/18 Kenneth Garza PA-C [address] [address] Specialist Thoracic Surgery 06/01/22 Johanna Son MD [address] [address] Lung Cancer Tunnel Elastic Operator Chainstitch 06/01/22 documented as of this encounter
--- OUTSIDE RECORDS SUMMARY | 2024-05-24 12:01 | XMS_ITS | Encounter Summary ---
Author Organization [facility] Address [address] [place] [address] Care Team Providers Care Inventory Control Clerk Name Role Phone Juan Jose Ellington NP Primary Care Provider Unavail able Kenneth Garza PA-C Unavailable Johanna Son MD Unavailable Encounter Details Date Type Department Care Team Description 02/25/2019 Release of Information Medical Records [address] [place] [id number] Abstract, Provider Social History Tobacco Use Types [...] on filedocumented in this encounter Care Teams Inventory Control Clerk Relationship Specialty Start Date End Date Juan Jose Ellington NP PCP - General Family Practice 06/26/18 Kenneth Garza PA-C [address] [address] Specialist Thoracic Surgery 06/01/22 Johanna Son MD [address] [address] Lung Cancer Manager Of Product 06/01/22 documented as of this encounter
--- OUTSIDE RECORDS SUMMARY | 2024-05-24 12:02 | XMS_ITS | Encounter Summary ---
Author Organization [facility] Address [address] [place] [address] Phone Care Team Providers Care Habilitation Specialist Name Role Phone Juan Jose Ellington AUTO TRANSMISSION TECHNICIAN Primary Care Provider [phone] Encounter Details Date Type Department Care Team (Late Contact Info) Description 10/25/2023 Documentation Only [facility] [address] [place] [address] Tatyana Ritchie [address] [place] [address] Social History Tobacco Use Types [...] Visit [facility] [address] [place] [address] Cortes Rowe MD [address] [place] [address] [place] [address] documented as of this encounter Visit Diagnoses Not on filedocumented in this encounter Care Teams Habilitation Specialist Relationship Specialty Start Date End Date Juan Jose Ellington NP [address] [place] [address] PCP - General 12/25/18 documented as of this encounter
--- OUTSIDE RECORDS SUMMARY | 2024-05-24 12:02 | XMS_ITS | Encounter Summary ---
Author Organization [facility] Address [address] [place] [address] Phone Care Team Providers Care Diagnostic Radiologic Technologist Name Role Phone Juan Jose Ellington TRAVEL NURSE Primary Care Provider [phone] Encounter Details Date Type Department Care Team (Late st Contact Info) Description 03/26/2024 Documentation Only [facility] [address] [place] [address] Tatyana Ritchie [address] [place] [address] Social History Tobacco Use Types [...] [facility] [address] [place] [address] Cortes Rowe MD [address] [place] [address] [place] [address] documented as of this encounter Visit Diagnoses Not on filedocumented in this encounter Care Teams Diagnostic Radiologic Technologist Relationship Specialty Start Date End Date Juan Jose Ellington NP [address] [place] [address] PCP - General 12/25/18 documented as of this encounter
--- OUTSIDE RECORDS SUMMARY | 2024-05-24 12:02 | XMS_ITS | Encounter Summary ---
Author Organization [facility] Address [address] [place] [address] Care Team Providers Care Correctional Supply Supervisor Name Role Phone Juan Jose Ellington FILLING HAND Primary Care Provider [phone] Encounter Details Date Type Department Care Team ([facility] st Contact Info) Description 05/21/2024 Telephone Lung Screening Program - [address] [address] Luba De Leon [place] Social [...] 8:45 AM EDT Office Visit Pulmonolgy - [place] 175 [facility] [address] [place] [address] Sarah Breaux MD 175 [facility] [address] [place] [address] documented as of this encounter Visit Diagnoses Not on filedocumented in this encounter Care Teams Correctional Supply Supervisor Relationship Specialty Start Date End Date Juan Jose Ellington NP [address] [place], [place] PCP - General 06/26/18 documented as of this encounter
--- OUTSIDE RECORDS SUMMARY | 2024-05-24 12:02 | XMS_ITS | Encounter Summary ---
Author Organization [facility] Address [address] [place] [address] Care Team Providers Care Piggery Worker Name Role Phone Juan Jose Ellington NP Primary Care Provider Unavail able Kenneth Garza PA-C Unavailable [phone] Johanna Son MD Unavailable Encounter Details Date Type Department Care Team Description 06/01/2022 Orders Only Medical Records [address] [place] [address] Johanna Son MD [address] [address] Social History Tobacco Use Types Packs/Day Years [...] on filedocumented in this encounter Care Teams Piggery Worker Relationship Specialty Start Date End Date Juan Jose Ellington NP PCP - General Family Practice 06/26/18 Kenneth Garza PA-C [address] [address] Specialist Thoracic Surgery 06/01/22 Johanna Son MD [address] [address] Lung Cancer Reverberatory Furnace Supervisor 06/01/22 documented as of this encounter
--- OUTSIDE RECORDS SUMMARY | 2024-05-24 12:02 | XMS_ITS | Encounter Summary ---
Author Organization [facility] Address [address] [place] [address] Phone Care Team Providers Care Traffic Police Officer Name Role Phone Juan Jose Ellington SOFTWARE QA SYSTEM SPECIALIST Primary Care Provider [phone] Encounter Details Date Type Department Care Team (Late Contact Info) Description 10/25/2023 Documentation Only [facility] [address] [place] [address] Tatyana Ritchie [address] [place] [address] Social History Tobacco Use Types [...] Visit [facility] [address] [place] [address] Cortes Rowe MD [address] [place] [address] [place] [address] documented as of this encounter Visit Diagnoses Not on filedocumented in this encounter Care Teams Traffic Police Officer Relationship Specialty Start Date End Date Juan Jose Ellington NP [address] [place] [address] PCP - General 12/25/18 documented as of this encounter
--- OUTSIDE RECORDS SUMMARY | 2024-05-24 12:02 | XMS_ITS | Encounter Summary ---
Author Organization [facility] Address [address] [place] [address] Phone Care Team Providers Care Dry Roaster Name Role Phone Juan Jose Ellington ADVERTISING PROJECT MANAGER Primary Care Provider [phone] Encounter Details Date Type Department Care Team (Late Contact Info) Description 03/19/2024 Documentation Only [facility] [address] [place] [address] Tatyana Ritchie [address] [place] [address] Social History Tobacco Use [...] Visit [facility] [address] [place] [address] Cortes Rowe MD [address] [place] [address] [place] [address] documented as of this encounter Visit Diagnoses Not on filedocumented in this encounter Care Teams Dry Roaster Relationship Specialty Start Date End Date Juan Jose Ellington NP [address] [facility] [place] [address] PCP - General 12/25/18 documented as of this encounter
--- OUTSIDE RECORDS SUMMARY | 2024-05-24 12:02 | XMS_ITS | Encounter Summary ---
Author Organization [facility] Address [address] [place] [address] Care Team Providers Care Press Hand Supervisor Name Role Phone Juan Jose Ellington LICENSED PSYCHOLOGIST MANAGER Primary Care Provider [phone] Reason for Visit * Reason Onset Date Comments Appointment 05/21/2024 Open in Error Encounter Details Date Type Department Care Team (Late Contact Info) Description 05/21/2024 Telephone Lung Screening Program - [place] 299 [facility] [address] [place] [address] Luba De Leon [place] Appointment (Open in [...] 8:45 AM EDT Office Visit Pulmonolgy - [place] 175 [facility] [address] [place] [address] Sarah Breaux MD 175 [facility] [address] [place] [address] documented as of this encounter Visit Diagnoses Not on filedocumented in this encounter Care Teams Press Hand Supervisor Relationship Specialty Start Date End Date Juan Jose Ellington NP [address] [place], [place] PCP - General 06/26/18 documented as of this encounter
--- OUTSIDE RECORDS SUMMARY | 2024-05-24 12:02 | XMS_ITS | Encounter Summary ---
Author Organization [facility] Address [address] [place] [address] Phone Care Team Providers Care Cook Ice Cream Name Role Phone Juan Jose Ellington GENERAL PRACTICE Primary Care Provider [phone] Encounter Details Date Type Department Care Team (Late Contact Info) Description 10/12/2023 Documentation Only [facility] [address] [place] [address] Tatyana Ritchie [address] [place] [address] Social History Tobacco Use Types [...] Visit [facility] [address] [place] [address] Cortes Rowe MD [address] [place] [address] [place] [address] documented as of this encounter Visit Diagnoses Not on filedocumented in this encounter Care Teams Cook Ice Cream Relationship Specialty Start Date End Date Juan Jose Ellington NP [address] [place] [address] PCP - General 12/25/18 documented as of this encounter
--- OUTSIDE RECORDS SUMMARY | 2024-05-24 12:02 | XMS_ITS | Encounter Summary ---
Author Organization [facility] Address [address] [place] [address] Care Team Providers Care Chummer Name Role Phone Juan Jose Ellington NP Primary Care Provider Unavail able Kenneth Garza PA-C Unavailable Johanna Son MD Unavailable Encounter Details Date Type Department Care Team Description 12/27/2022 Telephone Pulmonology - [place] 175 [facility] [address] [place] [address] Sarah Breaux MD [address] [place] [address] Social History Tobacco Use Types Packs/Day Years [...] suspected to have Coronavirus/COVID-19? No / Unsure 12/21/2022 8:30 AM EDT documented as of this encounter Miscellaneous Notes * Telephone Encounter - Dhaval Yang CMA - 12/27/2022 4:22 PM EST Pt scheduled 02/28/22 at 9 am. Pt informed. * Telephone Encounter - Sarah Breaux MD - 12/27/2022 3:26 PM EST Please give pt a f/u apt in mid February or early March- we can remove the June schedule documented in this encounter Plan of Treatment Not on file documented as of this encounter Visit Diagnoses Not on filedocumented in this encounter Care Teams Chummer Relationship Specialty Start Date End Date Juan Jose Ellington NP PCP - General Family Practice 06/26/18 Kenneth Garza PA-C [address] [place] [address] Specialist Thoracic Surgery 06/01/22 Johanna Son MD [address] [address] Lung Cancer Front Desk Lead 06/01/22 documented as of this encounter
--- OUTSIDE RECORDS SUMMARY | 2024-05-24 12:02 | XMS_ITS | Encounter Summary ---
Author Organization [facility] Address [address] [place] [address] Care Team Providers Care Jewel Hole Gauger Name Role Phone Juan Jose Ellington NP Primary Care Provider Unavail able Kenneth Garza PA-C Unavailable [phone] Johanna Son MD Unavailable Encounter Details Date Type Department Care Team Description 06/12/2023 Plasticator Report Medical Records [address] [place] [address] [facility] [address] [place] [address] Social History Tobacco Use Types Packs/Day Years [...] on filedocumented in this encounter Care Teams Jewel Hole Gauger Relationship Specialty Start Date End Date Juan Jose Ellington NP PCP - General Family Practice 06/26/18 Kenneth Garza PA-C [address] [address] Specialist Thoracic Surgery 06/01/22 Johanna Son MD [address] [address] Lung Cancer Medical Social Consultant 06/01/22 documented as of this encounter
--- OUTSIDE RECORDS SUMMARY | 2024-05-24 12:02 | XMS_ITS | Encounter Summary ---
Author Organization [facility] Address [address] [place] [address] Care Team Providers Care Chief Writer Name Role Phone Juan Jose Ellington NP Primary Care Provider Unavail able Kenneth Garza PA-C Unavailable Johanna Son MD Unavailable Encounter Details Date Type Department Care Team Description 06/01/2022 [facility] Records [facility] Lung Screening Program [place] 299 [facility] [address] [place] [phone] Johanna Son MD 299 [facility] [place] [place] [address] [phone] Social History Tobacco Use Types Packs/Day Years [...] on filedocumented in this encounter Care Teams Chief Writer Relationship Specialty Start Date End Date Juan Jose Ellington NP PCP - General Family Practice 06/26/18 Kenneth Garza PA-C [address] [phone] Specialist Thoracic Surgery 06/01/22 Johanna Son MD [address] [address] Lung Cancer Wrap Checker 06/01/22 documented as of this encounter
--- OUTSIDE RECORDS SUMMARY | 2024-05-24 12:02 | XMS_ITS | Encounter Summary ---
Author Organization [facility] Address [address] [place] [address] Care Team Providers Care Drapery Counselor Name Role Phone Clarence Ellington NP Primary Care Provider Unavail able Kenneth Garza PA-C Unavailable Johanna Son MD Unavailable Reason for Visit * Reason Onset Date Comments medication problems 09/04/2018 Encounter Details Date Type Department Care Team Description 09/04/2018 Telephone Pulmonology - [place] 175 [facility] [address] [place] [phone] Sarah Breaux MD [address] [place] [address] medication problems Social History Tobacco [...] / Plan: [place] / Product Type: MEDICARE [id number] documented in this encounter Plan of Treatment Not on file documented as of this encounter Visit Diagnoses Not on filedocumented in this encounter Care Teams Drapery Counselor Relationship Specialty Start Date End Date Clarence Ellington NP PCP - General Family Practice 06/26/18 Kenneth Garza PA-C [address] [phone] Specialist Thoracic Surgery 06/01/22 Johanna Son MD [address] [phone] Lung Cancer Swimming Instructor 06/01/22 documented as of this encounter
--- OUTSIDE RECORDS SUMMARY | 2024-05-24 12:02 | XMS_ITS | Encounter Summary ---
Author Organization [facility] Address [address] [place] [address] Care Team Providers Care Roofing Sales Representative Name Role Phone Juan Jose Ellington NP Primary Care Provider Unavail able Kenneth Garza PA-C Unavailable Johanna Son MD Unavailable Encounter Details Date Type Department Care Team Description 04/27/2018 Hospital Medical Records [address] [place] [address] Johanna Son MD [address] [phone] Social History Tobacco Use Types Packs/Day Years [...] on filedocumented in this encounter Care Teams Roofing Sales Representative Relationship Specialty Start Date End Date Juan Jose Ellington NP PCP - General Family Practice 06/26/18 Kenneth Garza PA-C [address] [phone] Specialist Thoracic Surgery 06/01/22 Johanna Son MD [address] [place] [phone] Lung Cancer Testing Specialist 06/01/22 documented as of this encounter
--- OUTSIDE RECORDS SUMMARY | 2024-05-24 12:02 | XMS_ITS | Encounter Summary ---
Author Organization [facility] Address [address] [place] [address] Care Team Providers Care Nitroglycerin Nitrator Operator Batch Name Role Phone Juan Jose Ellington NP Primary Care Provider Unavail able Kenneth Garza PA-C Unavailable Johanna Son MD Unavailable Reason for Visit * Reason Onset Date Comments refill request 09/06/2018 Encounter Details Date Type Department Care Team Description 09/06/2018 Refill Pulmonology - [place] 175 [facility] [address] [place] [phone] Sarah Breaux MD 175 [place] [address] refill request Social History Tobacco [...] Mendel, calling for albuterol inhaler, Please call [phone] documented in this encounter Plan of Treatment Not on file documented as of this encounter Visit Diagnoses Diagnosis Pulmonary emphysema, unspecified emphysema type (HCC)- Primary documented in this encounter Care Teams Nitroglycerin Nitrator Operator Batch Relationship Specialty Start Date End Date Juan Jose Ellington NP PCP - General Family Practice 06/26/18 Kenneth Garza PA-C [address] [phone] Specialist Thoracic Surgery 06/01/22 Johanna Son MD [address] [phone] Lung Cancer Optimization Consultant 06/01/22 documented as of this encounter
--- OUTSIDE RECORDS SUMMARY | 2024-05-24 12:02 | XMS_ITS | Clinical Summary ---
Author Organization [facility], Address [address] [place] [address] [place] [address] Phone Care Team Providers Care Rental Counter Clerk Name Role Phone Juan Jose Ellington NP Primary Care Provider [phone] Allergies No known active allergies Medications albuterol [...] Only [facility] [address] [place] [phone] Cortes Rowe MD 03/26/2024 Documentation Only [facility] [address] [place] [phone] Tatyana Ritchie 03/21/2024 1:30 PM EST Office Visit [facility] [address] [place] [phone] Cortes Rowe MD Stage 3b chronic kidney disease (HCC) (Primary Dx) 03/19/2024 Documentation Only [facility] [address] [place] [phone] Tatyana Ritchie 03/19/2024 Documentation Only [facility] [address] [place] [address] Tatyana Ritchie from Last 3 Months Family [...] [facility] [address] [place] [phone] Cortes Rowe MD [address] [place] [address] Health Maintenance Due Date Last Done [...] Urine 0-5 0 - 5 /hpf [facility] RBC, Urine None seen 0 - 2 /hpf [facility] Squamous Epithelial, Urine 0-10 0 - 10 /hpf [facility] Casts None seen None seen /lpf [facility] Bacteria, Urine None seen None seen/Few [facility] 03/26/2024 9:00 AM EST 03/26/2024 Cortes Rowe MD LAB MICROBIOLOGY - GENERAL OR DERABLES Final Result Performing Organization Address City/[facility]/ZIP Co de Phone Number [facility] [address] [place] [address] * Protein, Total, Random Urine w/Creatinine (Protein/Creat Ratio) (03/26/2024 9:00 AM EST) Creatinine, Ur 85.8 Not Estab. mg/dL [facility] Protein, Ur 7.3 Not Estab. mg/dL [facility] Urine Protein/Creatin ine Ratio 85 0 - 200 mg/g creat [facility] 03/26/2024 9:00 AM EST 03/26/2024 Cortes Rowe MD LAB URINE ORDERABLES Final Re sult Performing Organization Address City/[facility]/ZIP Co de Phone Number [facility] [address] [place] [address] * Urine Albumin / Creatinine Ratio (03/26/2024 9:00 AM EST) Albumin, Urine <3.0 Not Estab. ug/mL [facility] Albumin/Creatin ine Ratio <3 0 - 29 mg/g creat [facility] Comment: ? Normal: ?0 - ??29 ? Moderately increased: 30 - 300 ? Severely increased: ? >300 03/26/2024 9:00 AM EST 03/26/2024 us Cortes Rowe MD LAB URINE ORDERABLES Final Re sult [facility] [address] [place] [address] * (ABNORMAL) Urinalysis with microscopic (03/26/2024 9:00 AM EST) Specific [place], Urine 1.012 1.005 - 1.030 [facility] pH Urine 6.0 5.0 - 7.5 [facility] Color, Urine Yellow Yellow [facility] Appearance Urine Clear Clear [facility] WBC Esterase Urine Trace(A) Negative [facility] Protein, Ur Negative Negative/Tra ce [facility] Glucose, Ur Negative Negative [facility] [phone] Ketones, Urine Negative Negative [facility] Blood Urine Negative Negative [facility] Bilirubin Urine Negative Negative [facility] Urobilinogen Urine 0.2 0.2 - 1.0 mg/dL [facility] Nitrite, Urine Negative Negative [facility] Microscopic Examination See below: [facility] Comment:Microscopic was isidro cated and was performed. 03/26/2024 9:00 AM EST 03/26/2024 Cortes Rowe MD LAB URINE ORDERABLES Final Re sult Performing Organization Address [facility]/ZIP Co de Phone Number [facility] [address] [place] [address] * Iron Panel (Fe, TIBC, TSAT) (03/21/2024 2:21 PM EST) TIBC 374 250 - 450 ug/dL [facility] UIBC 281 118 - 369 ug/dL [facility] Iron 93 27 - 139 ug/dL [facility] Iron Saturation (TSat) 25 15 - 55 % [facility] Blood (Blood, Venous) 03/21/2024 2:21 PM EST 03/21/2024 Cortes Rowe MD LAB BLOOD ORDERABLES Final Re sult Performing Organization Address [facility] Co de Phone Number [facility] [address] [place] [address] * (ABNORMAL) Vitamin D 25 Hydroxy (03/21/2024 2:21 PM EST) Vitamin D, 25-OH, Total 29.6(L) 30.0 - 100.0 ng/mL [facility] Comment: Vitamin D deficiency has been defined by the [place] of Medicine and an Endocrine Society practice guideline as a level of serum 25-OH vitamin D less than 20 ng/mL (1,2). The Endocrine Society went on to further define vitamin D insufficiency as a level between 21 and 29 ng/mL (2). 1. IOM ([place] of Medicine). 2010. Dietary reference ?? intakes [...] MD LAB BLOOD ORDERABLES Final [facility] [address] [place] [address] * CBC and Differential (03/21/2024 2:21 PM EST) WBC 8.2 3.4 - 10.8 x10E3/uL [facility] RBC 4.28 3.77 - 5.28 x10E6/uL [facility] Hemoglobin 13.5 11.1 - 15.9 g/dL [facility] Hematocrit 40.5 34.0 - 46.6 % [facility] MCV 95 79 - 97 fL [facility] MCH 31.5 26.6 - 33.0 pg [facility] MCHC 33.3 31.5 - 35.7 g/dL [facility] RDW 12.9 11.7 - 15.4 % [facility] Platelets 246 150 - 450 x10E3/uL [facility] Neutrophils Relative 70 Not Estab. % [facility] Lymphocytes Relative 13 Not Estab. % [facility] Monocytes 10 Not Estab. % [facility] Eosinophils Relative 5 Not Estab. % [facility] Basophils Relative 1 Not Estab. % [facility] Neutrophils Absolute 5.8 1.4 - 7.0 x10E3/uL [facility] Lymphocytes Absolute 1.1 0.7 - 3.1 x10E3/uL [facility] Monocytes Absolute 0.8 0.1 - 0.9 x10E3/uL [facility] Eosinophils Absolute 0.4 0.0 - 0.4 x10E3/uL [facility] Basophils Absolute 0.1 0.0 - 0.2 x10E3/uL [facility] Immature Granulocytes 1 Not Estab. % [facility] Immature Grans (Absolute) 0.1 0.0 - 0.1 x10E3/uL [facility] Blood (Blood, Venous) 03/21/2024 2:21 PM EST 03/21/2024 Cortes Rowe MD LAB BLOOD ORDERABLES Final Re sult [facility] [address] [place] [address] * (ABNORMAL) PTH, Intact (03/21/2024 2:21 PM EST) PTH 87(H) 15 - 65 pg/mL [facility] Blood (Blood, Venous) 03/21/2024 2:21 PM EST 03/21/2024 Cortes Rowe MD LAB BLOOD ORDERABLES Final Re sult [facility] [address] [place] [address] * (ABNORMAL) Ferritin (03/21/2024 2:21 PM EST) Ferritin 181(H) 15 - 150 ng/mL [facility] Blood (Blood, Venous) 03/21/2024 2:21 PM EST 03/21/2024 us Cortes Rowe MD LAB BLOOD ORDERABLES Final Re sult [facility] [address] [place] [address] * (ABNORMAL) Renal Function Panel (03/21/2024 2:21 PM EST) Pathologist [facility] Glucose 82 70 - 99 mg/dL [facility] BUN 39(H) 8 - 27 mg/dL [facility] Creatinine 2.06(H) 0.57 - 1.00 mg/dL [facility] eGFR CKD-EPI CR 2020 24(L) >59 mL/min/1.7 3 [facility] BUN/Creatinine Ratio 19 12 - 28 [facility] Sodium 141 134 - 144 mmol/L [facility] Potassium 4.3 3.5 - 5.2 mmol/L [facility] Chloride 102 96 - 106 mmol/L [facility] Bicarbonate (CO2) 23 20 - 29 mmol/L [facility] Calcium 9.8 8.7 - 10.3 mg/dL [facility] Albumin 4.6 3.8 - 4.8 g/dL [facility] Phosphorus 3.6 3.0 - 4.3 mg/dL [facility] Blood (Blood, Venous) 03/21/2024 2:21 PM EST 03/21/2024 us Cortes Rowe MD LAB BLOOD ORDERABLES Final Re sult [facility] [address] [place] [phone] from Last 3 Months Insurance [place]ICAID [place] MEDICARE MEDICARE [place]ICAID [place] Care Teams Rental Counter Clerk Relationship Specialty Start Date End Date Juan Jose Ellington NP [address] [place] [address] PCP - General 12/25/18
--- OUTSIDE RECORDS SUMMARY | 2024-05-24 12:02 | XMS_ITS | Encounter Summary ---
Author Organization [facility] Address [address] [place] [address] Phone Care Team Providers Care Intake Manager Name Role Phone Juan Jose Ellington LOSS PREVENTION/SAFETY DISTRICT MANAGER Primary Care Provider [phone] Encounter Details Date Type Department Care Team (Late Contact Info) Description 03/19/2024 Documentation Only [facility] [address] [place] [address] Tatyana Ritchie [address] [place] [address] Social History Tobacco Use Types [...] [facility] [address] [place] [address] Cortes Rowe MD [address] [place] [address] [place] [address] documented as of this encounter Visit Diagnoses Not on filedocumented in this encounter Care Teams Intake Manager Relationship Specialty Start Date End Date Juan Jose Ellington NP [address] [facility] [place] [address] PCP - General 12/25/18 documented as of this encounter
--- OUTSIDE RECORDS SUMMARY | 2024-05-24 12:02 | XMS_ITS | Clinical Summary ---
Author Organization [facility] Address [address] [place] [address] Care Team Providers Care Philosophy Faculty Member Name Role Phone Juan Jose Ellington NP Primary Care Provider Unavail able Kenneth Garza PA-C Unavailable [phone] Johanna Son MD Unavailable Allergies Active Allergy [...] Covid-19 Vaccine (3 - season) 10/22/202311/2020, 05/02/2020 BMI CHECK/ADVISE 02/21/2024 Lung Cancer Screening (Low Dose CT) 06/11/2024 06/12/2023, 04/15/2022, 03/23/2018 INFLUENZA (Season Ended) 2024 11/20/2017, 02/20 Care Teams Philosophy Faculty Member Relationship Specialty Start Date End Date Juan Jose Ellington NP PCP - General Family Practice 06/26/18 Kenneth Garza PA-C [address] [phone] Specialist Thoracic Surgery 06/01/22 Johanna Son MD [address] [phone] Lung Cancer Club Room Attendant 06/01/22
--- OUTSIDE RECORDS SUMMARY | 2024-05-24 12:02 | XMS_ITS | Encounter Summary ---
Author Organization [facility] Address [address] [place] [address] Care Team Providers Care Civilian Jail Officer Name Role Phone Juan Jose Ellington NP Primary Care Provider Unavail able Kenneth Garza PA-C Unavailable [phone] Johanna Son MD Unavailable Encounter Details Date Type Department Care Team Description 03/17/[address] [facility] Lung Screening Program [place] 299 [facility] [address] [place] [phone] Johanna Son MD 299 [facility] [address] [place] [phone] History of tobacco use, presenting hazards to health (Primary Dx) Social History Tobacco Use Types Packs/Day Years Used Date Smoking Tobacco: Former Cigarettes 1 53 1 962 - 2013 Smokeless Tobacco: Never Alcohol Use Standard Drinks/Week [...] suspected to have Coronavirus/COVID-19? No / Unsure 03/16/2022 9:50 AM EST documented as of this encounter Plan of Treatment Not on file documented as of this encounter Results * CT LOW DOSE LUNG SCREEN ANNUAL (04/15/2022) Johanna Son MD CT SCANS documented in this encounter Visit Diagnoses Diagnosis History of tobacco use, presenting hazards to health- Primary Personal history of tobacco use, presenting hazards to health documented in this encounter Care Teams Civilian Jail Officer Relationship Specialty Start Date End Date Juan Jose Ellington NP PCP - General Family Practice 06/26/18 Kenneth Garza PA-C [address] [phone] Specialist Thoracic Surgery 06/01/22 Johanna Son MD [address] [phone] Lung Cancer Superintendent Tests 06/01/22 documented as of this encounter
--- OUTSIDE RECORDS SUMMARY | 2024-05-24 12:02 | XMS_ITS | Encounter Summary ---
Author Organization [facility] Address [address] [place] [address] Phone Care Team Providers Care Health Social Work Professor Name Role Phone Juan Jose Ellington MUSIC REHABILITATION THERAPIST Primary Care Provider [phone] Encounter Details Date Type Department Care Team (Late Contact Info) Description 10/25/2023 Documentation Only [facility] [address] [place] [address] Tatyana Ritchie [address] [place] [address] Social History Tobacco Use Types [...] Visit [facility] [address] [place] [address] Cortes Rowe MD [address] [place] [address] [place] [address] documented as of this encounter Visit Diagnoses Not on filedocumented in this encounter Care Teams Health Social Work Professor Relationship Specialty Start Date End Date Juan Jose Ellington NP [address] [facility] [place] [address] PCP - General 12/25/18 documented as of this encounter
== END 2024-05-24 11:48 | disposition home or self-care (01) ==
LOC: HO.HSMS 10:32
PROVIDERS: PCP Nurse Practitioner Family; Visit Provider Nurse Practitioner Family
DX: G24.01 Drug induced subacute dyskinesia (principal); G25.2 Other specified forms of tremor; R26.9 Unspecified abnormalities of gait and mobility
CPT/HCPCS: 99214

== ENCOUNTER → 2024-05-24 10:31 | Outpatient (BNVA) | payer MEDICARE, MEDICAID, SELFPAY | PROVIDERS: PCP Nurse Practitioner Family; Visit Provider Nurse Practitioner Family | DX: G24.01 Drug induced subacute dyskinesia (principal); G25.2 Other specified forms of tremor; R26.9 Unspecified abnormalities of gait and mobility | CPT/HCPCS: 99212 ==

== ENCOUNTER 2024-06-11 14:58 | Outpatient (AMB) | payer MEDICARE, MEDICAID, SELFPAY ==
[2024-06-11 15:01] VITALS: BP 120/60; PULSE 62; BMI 36.5
--- NOTE | 2024-06-11 15:01 | A.OFFVIS_ITS ---
Vital Signs 06/11/24 15:01 Height 5 ft 1 in Weight 193 lb 1.999 oz BMI 36.5 BP 120/60 Blood Pressure Location Rt brachial Position Sitting Pulse 62 Pulse Source Monitor Intake Visit Reasons: 4 week follow[place] [facility] [place] Intake Note: 4 wk f/up/[facility] [place] Repairer Required: No Accompanied by: Daughter Allergies Sulfa (Sulfonamide Antibiotics) [SULFA (SULFONAMIDE ANTIBIOTICS)] Allergy (Severe, Verified 05/24/24 10:45) RASH, Anaphylaxis Medication List - Last Reconciled 06/11/24 by Steven Castañeda MD acetaminophen 325 mg PO QID PRN 7 days albuterol sulfate 90 mcg/actuation (Ventolin HFA) 2 puffs inhalation Q6H PRN amiodarone 100 mg (1/2 x 200 mg) PO DAILY 90 days apixaban (Eliquis) 5 mg PO BID cholecalciferol (vitamin D3) 50 mcg PO DAILY cranberry 1,000 mg PO DAILY [disposable bed pads As directed, uses 6 per day] [disposable gloves As directed, uses 8 per day to provide incontinence care] [disposable incontinence wipes As directed, uses 10 per day to provide incontinence care] [disposable pull up briefs As directed, uses 8 per day] pncgymfkxfn-xtovwhwnk-sljhizpq 100-62.5-25 mcg (Trelegy Ellipta) 1 ea inhalation DAILY furosemide 20 mg PO DAILY hydroxyzine HCl 10 mg PO DAILY PRN lamotrigine 50 mg PO BEDTIME melatonin 10 mg PO BEDTIME metoprolol succinate ER 50 mg (2 x 25 mg) PO DAILY ofloxacin 0.3% 1 - 2 drps ophthalmic (eye) QID olanzapine 7.5 mg PO BEDTIME simvastatin 20 mg PO BEDTIME walker Standard walker, no wheels [washable bed pads As directed] HPI Comments Details: Nikki comes for follow-up. She is accompanied by her daughter. Recently she had bumped her right arm and had developed a hematoma. She is currently in a wheelchair and walks with a walker at home. No significant falls. Continues to have significant movement disorder/tremors. Denies any orthopnea, PND, leg edema. No prolonged palpitation irregular heartbeat. No major other bleeding issues or neurologic events. [facility] Medical History (Updated 06/11/24 @ 16:04 by Steven Castañeda MD) Paroxysmal atrial fibrillation Emphysema of lung Tardive dyskinesia Coarse tremors Hypersomnia Snoring SHARON (acute kidney injury) Mediastinal lymphadenopathy Atrial fibrillation Dyslipidemia Kidney disease Leukocytosis Necrotizing granulomatous inflammation of lung Bipolar 1 disorder Vitamin D deficiency COPD (chronic obstructive pulmonary disease) Sarcoidosis HTN (hypertension) Kempner nephropathy Surgical History History of cardioversion History of bronchoscopy Family History Child No Financial Resp No problems noted. 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 Current occupational exposures/hazards: No Cognitive needs: No Hearing needs: No Vision needs: Yes Review of Systems Const Denies chills, Denies fatigue, Denies fever(s), Denies frequent falls, Denies weakness, Denies weight gain and Denies weight loss ENT Denies dizziness Card Denies chest pain, Denies leg edema, Denies lightheadedness, Denies palpitations, Denies dyspnea and Denies dyspnea on exertion Resp Denies cough, Denies dyspnea and Denies dyspnea on exertion GI Denies hematochezia Musc Denies abnormal gait, Denies muscle weakness, Denies numbness, Denies radiating pain into limb and Denies tingling Neuro Denies abnormal gait, Denies dizziness, Denies frequent falls, Denies numbness, Denies tingling and Denies weakness Endo Denies fatigue and Denies palpitations Physical Exam Vital Signs: Last Vital Signs Pulse 62 06/11/24 15:01 BP 120/60 06/11/24 15:01 BMI result Body Mass Index 36.5 Const General: cooperative, comfortable and no acute distress Neck Neck: Yes normal visual inspection and Yes no JVD Resp Effort & Inspection: normal respiratory effort Auscultation: clear to auscultation bilaterally, no crackles, no rales, no rhonchi and no wheezes Cardio Jugular venous distension: no JVD Rate: regular rate Rhythm: regular rhythm Heart sounds: S1 normal heart sound present, S2 normal heart sound present, no gallops, no murmurs and no rubs GI Inspection: Yes normal to inspection Extrem General: Yes normal to inspection and No no pedal edema Psych Appearance: grossly normal Mental Status: mental status grossly normal Office Procedures EKG Details: EKG shows normal sinus rhythm with normal EKG [id number], Complete Assessment & Plan Assessment & Plan (1) Calcification of mitral valve: Code(s): I34.81 - Nonrheumatic mitral (valve) annulus calcification Category: Medical Plan: Calcific mitral valve disease with mitral regurgitation mitral stenosis without any clinically or hemodynamically significant mitral valve disease. At this point time no interventions required per se. Clinically does appear to be in heart failure syndrome. Currently on low-dose diuretic therapy. Continue the same with as-needed Lasix therapy. Will continue monitor echocardiogram on annual basis. Currently on full oral anticoagulation with Eliquis. However long-term prognosis most likely related to her frailty and musculoskeletal disorder. (2) Paroxysmal atrial fibrillation: Code(s): I48.0 - Paroxysmal atrial fibrillation Category: Medical Plan: Paroxysmal atrial fibrillation currently suppressed on low-dose amiodarone therapy. Continue the same. Has derived significant clinical benefit from rhythm control approach will continue pursue the same. Possible assisted toxicity related to this was discussed. Continue full oral anticoagulation, currently on Eliquis 5 mg b.i.d.. Continue monitor renal function if there is further deterioration in renal function may need to reduce Eliquis to 2.5 mg b.i.d.. Will follow with her in 6 months time, sooner p.r.n.. Thank you for allowing me to partake in her care Coding Level of Care Code Est Pt Level 4 (56838) Complex EM visit Add On G2211 Diagnoses Calcification of mitral valve I34.81 Paroxysmal atrial fibrillation I48.0 CPT Codes EKG - CPT: 09356-[id number], Complete ([id number])
--- OUTSIDE RECORDS SUMMARY | 2024-06-11 17:54 | XMS_ITS | Encounter Summary ---
Author Organization [facility] Address [address] [place] [address] Care Team Providers Care Haz Tech Name Role Phone Juan Jose Ellington NP Primary Care Provider Unavail able Kenneth Garza PA-C Unavailable Johanna Son MD Unavailable Encounter Details Date Type Department Care Team Description 12/27/2022 Telephone Pulmonology - [place] 175 [facility] [address] [place] [address] Sarah Breaux MD 175 [place] [address] Social History Tobacco Use Types [...] on filedocumented in this encounter Care Teams Haz Tech Relationship Specialty Start Date End Date Juan Jose Ellington NP PCP - General Family Practice 06/26/18 Kenneth Garza PA-C [address] [place] [phone] Specialist Thoracic Surgery 06/01/22 Johanna Son MD [address] [phone] Lung Cancer Adult Education Teacher 06/01/22 documented as of this encounter
--- OUTSIDE RECORDS SUMMARY | 2024-06-11 17:54 | XMS_ITS | Encounter Summary ---
Author Organization [facility] Address [address] [place] [address] Phone Care Team Providers Care Milk Driver Name Role Phone Juan Jose Ellington DIRECTOR OF SOCIAL MEDIA MARKETING Primary Care Provider [phone] Encounter Details Date Type Department Care Team (Late Contact Info) Description 10/25/2023 Documentation Only [facility] [address] [place] [address] Tatyana Ritchie [address] [place] [address] Social History Tobacco Use Types [...] [facility] [address] [place] [address] Cortes Rowe MD [address] [place] [address] [place] [address] documented as of this encounter Visit Diagnoses Not on filedocumented in this encounter Care Teams Milk Driver Relationship Specialty Start Date End Date Juan Jose Ellington NP [address] [facility] [place] [address] PCP - General 12/25/18 documented as of this encounter
--- OUTSIDE RECORDS SUMMARY | 2024-06-11 17:54 | XMS_ITS | Encounter Summary ---
Author Organization [facility] Address [address] [place] [address] Care Team Providers Care Saturator Tender Name Role Phone Juan Jose Ellington NP Primary Care Provider + [phone] Reason for Visit * Reason Onset Date Comments dme request 06/06/2024 Encounter Details Date Type Department Care Team ([facility] st Contact Info) Description 06/06/2024 [facility] [place] 175 [facility] [address] [place] [phone] Sarah Breaux MD 175 [facility] [address] [place] [address] dme request Social History Tobacco Use Types Packs/Day [...] as of this encounter Progress Notes * Shruti Coello MA - 06/10/2024 2:12 PM EDT Form printed. Waiting on provider signatures. * Melly England - 06/07/2024 12:35 PM EDT [facility] fax received for confirmation of orders. Sent to onase folder * Dhaval Yang MA - 06/07/2024 11:14 AM EDT Order faxed to paulina * Melly England - 06/06/2024 3:58 PM EDT [place] fax received for iequipment order . Sent to onbase folder Nov 08/09/24 documented in this encounter Plan of Treatment Upcoming Encounters Date Type Department Care Team (Late st Contact Info) Description 08/09/2024 8:45 AM EDT Office Visit Pulmonolgy - [place] [address] [facility] [address] [place] [address] Sarah Breaux MD [address] [place] [address] documented as of this encounter Visit Diagnoses Not on filedocumented in this encounter Care Teams Saturator Tender Relationship Specialty Start Date End Date Juan Jose Ellington NP [address] [place], [place] PCP - General 06/26/18 documented as of this encounter
--- OUTSIDE RECORDS SUMMARY | 2024-06-11 17:54 | XMS_ITS | Encounter Summary ---
Author Organization [facility] Address [address] [place] [address] Care Team Providers Care Rn Wellness Name Role Phone Juan Jose Ellington NP Primary Care Provider Unavail able Kenneth Garza PA-C Unavailable [phone] Johanna Son MD Unavailable Encounter Details Date Type Department Care Team Description 04/19/2022 Orders Only [facility] Lung Screening Program [place] 299 [facility] [address] [place] [phone] Johanna Son MD 299 [facility] [address] [place] [phone] History of tobacco use, presenting hazards to health Social History Tobacco Use Types Packs/Day Years [...] CT LOW DOSE LUNG SCREEN ANNUAL Routine 04/15/2022 History of tobacco use, presenting hazards to health documented in this encounter Results * CT LOW DOSE LUNG SCREEN ANNUAL (04/15/2022) Johanna Son MD CT SCANS documented in this encounter Visit Diagnoses Diagnosis History of tobacco use, presenting hazards to health Personal history of tobacco use, presenting hazards to health documented in this encounter Care Teams Rn Wellness Relationship Specialty Start Date End Date Juan Jose Ellington NP PCP - General Family Practice 06/26/18 Kenneth Garza PA-C [address] [phone] Specialist Thoracic Surgery 06/01/22 Johanna Son MD [address] [phone] Lung Cancer Mill Supervisor 06/01/22 documented as of this encounter
--- OUTSIDE RECORDS SUMMARY | 2024-06-11 17:54 | XMS_ITS | Encounter Summary ---
Author Organization [facility] Address [address] [place] [address] Care Team Providers Care Manager Nuclear Name Role Phone Juan Jose Ellington NP Primary Care Provider Unavail able Kenneth Garza PA-C Unavailable Johanna Son MD Unavailable Encounter Details Date Type Department Care Team Description 06/14/2023 Orders Only [facility] Lung Screening Program [place] 299 [facility] [address] [place] [phone] Johanna Son MD 299 [facility] [address] [place] [phone] History of tobacco abuse Social History Tobacco [...] health documented in this encounter Care Teams Manager Nuclear Relationship Specialty Start Date End Date Juan Jose Ellington NP PCP - General Family Practice 06/26/18 Kenneth Garza PA-C [address] [phone] Specialist Thoracic Surgery 06/01/22 Johanna Son MD [address] [phone] Lung Cancer Teaching Young 06/01/22 documented as of this encounter
--- OUTSIDE RECORDS SUMMARY | 2024-06-11 17:54 | XMS_ITS | Encounter Summary ---
Author Organization [facility] Address [address] [place] [address] Care Team Providers Care Taxonomy Teacher Name Role Phone Juan Jose Ellington NP Primary Care Provider Unavail able Kenneth Garza PA-C Unavailable Johanna Son MD Unavailable Encounter Details Date Type Department Care Team Description 06/01/2022 [facility] Records [facility] Lung Screening Program [place] 299 [facility] [address] [place] [phone] Johanna Son MD 299 [facility] [address] [place] [phone] Social History Tobacco Use Types Packs/Day Years [...] on filedocumented in this encounter Care Teams Taxonomy Teacher Relationship Specialty Start Date End Date Juan Jose Ellington NP PCP - General Family Practice 06/26/18 Kenneth Garza PA-C [address] [phone] Specialist Thoracic Surgery 06/01/22 Johanna Son MD [address] [phone] Lung Cancer Notary Public 06/01/22 documented as of this encounter
--- OUTSIDE RECORDS SUMMARY | 2024-06-11 17:54 | XMS_ITS | Encounter Summary ---
Author Organization [facility] Address [address] [place] [address] Phone Care Team Providers Care Sales Ambassador Name Role Phone Juan Jose Ellington ORGAN INSTALLER Primary Care Provider [phone] Encounter Details Date Type Department Care Team (Late Contact Info) Description 03/26/2024 Documentation Only [facility] [address] [place] [address] Tatyana Ritchie [address] [place] [address] Social History Tobacco Use Types [...] [facility] [address] [place] [address] Cortes Rowe MD [address] [place] [address] [place] [address] documented as of this encounter Visit Diagnoses Not on filedocumented in this encounter Care Teams Sales Ambassador Relationship Specialty Start Date End Date Juan Jose Ellington NP [address] [place] [address] PCP - General 12/25/18 documented as of this encounter
--- OUTSIDE RECORDS SUMMARY | 2024-06-11 17:54 | XMS_ITS | Clinical Summary ---
Author Organization [facility] Address [address] [place] [address] Care Team Providers Care Plating And Point Assembly Supervisor Name Role Phone Juan Jose Ellington NP Primary Care Provider Unavail able Kenneth Garza PA-C Unavailable [phone] Johanna Son MD Unavailable Allergies Active Allergy [...] (Season Ended) 2024 11/20/2017, 02/20 Care Teams Plating And Point Assembly Supervisor Relationship Specialty Start Date End Date Juan Jose Ellington NP PCP - General Family Practice 06/26/18 Kenneth Garza PA-C [address] [phone] Specialist Thoracic Surgery 06/01/22 Johanna Son MD [address] [phone] Lung Cancer Casing Builder 06/01/22
--- OUTSIDE RECORDS SUMMARY | 2024-06-11 17:54 | XMS_ITS | Encounter Summary ---
Author Organization [facility] Address [address] [place] [address] Care Team Providers Care Lock And Dam Operator Name Role Phone Juan Jose Ellington NP Primary Care Provider Unavail able Kenneth Garza PA-C Unavailable [phone] Johanna Son MD Unavailable Encounter Details Date Type Department Care Team Description 04/27/2022 Release of Information Medical Records [address] [place] [id number] Abstract, Provider Social History Tobacco Use Types [...] on filedocumented in this encounter Care Teams Lock And Dam Operator Relationship Specialty Start Date End Date Juan Jose Ellington NP PCP - General Family Practice 06/26/18 Kenneth Garza PA-C [address] [phone] Specialist Thoracic Surgery 06/01/22 Johanna Son MD [address] [place] [phone] Lung Cancer Wet Plant Operator 06/01/22 documented as of this encounter
--- OUTSIDE RECORDS SUMMARY | 2024-06-11 17:54 | XMS_ITS | Encounter Summary ---
Author Organization [facility] Address [address] [place] [address] Care Team Providers Care Customs Compliance Manager Name Role Phone Juan Jose Ellington NP Primary Care Provider Unavail able Kenneth Garza PA-C Unavailable Johanna Son MD Unavailable Encounter Details Date Type Department Care Team Description 05/30/2018 Hospital Medical Records [address] [place] [address] Johanna Son MD [address] [phone] Social History Tobacco Use Types Packs/Day Years [...] on filedocumented in this encounter Care Teams Customs Compliance Manager Relationship Specialty Start Date End Date Juan Jose Ellington NP PCP - General Family Practice 06/26/18 Kenneth Garza PA-C [address] [phone] Specialist Thoracic Surgery 06/01/22 Johanna Son MD [address] [place] [phone] Lung Cancer Typing Secretary 06/01/22 documented as of this encounter
--- OUTSIDE RECORDS SUMMARY | 2024-06-11 17:54 | XMS_ITS | Encounter Summary ---
Author Organization [facility] Address [address] [place] [address] Phone Care Team Providers Care Construction Helper Name Role Phone Juan Jose Ellington EXTENSION SERVICE SPECIALIST IN CHARGE Primary Care Provider [phone] Encounter Details Date Type Department Care Team (Late Contact Info) Description 03/19/2024 Documentation Only [facility] [address] [place] [address] Tatyana Ritchie [address] [place] [address] Social History Tobacco Use Types [...] Visit [facility] [address] [place] [address] Cortes Rowe MD [address] [place] [address] [place] [address] documented as of this encounter Visit Diagnoses Not on filedocumented in this encounter Care Teams Construction Helper Relationship Specialty Start Date End Date Juan Jose Ellington NP [address] [place] [address] PCP - General 12/25/18 documented as of this encounter
--- OUTSIDE RECORDS SUMMARY | 2024-06-11 17:54 | XMS_ITS | Encounter Summary ---
Author Organization [facility] Address [address] [place] [address] Care Team Providers Care Disability Hearing Officer Name Role Phone Juan Jose Ellington NP Primary Care Provider Unavail able Kenneth Garza PA-C Unavailable [phone] Johanna Son MD Unavailable Reason for Visit * Reason Onset Date Comments Provider Call Back 04/29/2019 Encounter Details Date Type Department Care Team Description 04/29/2019 Telephone Pulmonology - [place] 175 [facility] [address] [place] [phone] Sarah Breaux MD [address] [place] [address] Provider Call Back Social History [...] call back: Patient sister call and said [facility] said the last time she has [...] on filedocumented in this encounter Care Teams Disability Hearing Officer Relationship Specialty Start Date End Date Juan Jose Ellington NP PCP - General Family Practice 06/26/18 Kenneth Garza PA-C [address] [phone] Specialist Thoracic Surgery 06/01/22 Johanna Son MD [address] [phone] Lung Cancer Yard Clerk 06/01/22 documented as of this encounter
--- OUTSIDE RECORDS SUMMARY | 2024-06-11 17:54 | XMS_ITS | Encounter Summary ---
Author Organization [facility] Address [address] [place] [address] Care Team Providers Care Tube Coremaker Name Role Phone Juan Jose Ellington NP Primary Care Provider Unavail able Kenneth Garza PA-C Unavailable Johanna Son MD Unavailable Encounter Details Date Type Department Care Team Description 07/30/2021 Transfer Records Medical Records [address] [place] [id number] Abstract, Provider Social History Tobacco Use Types Packs/Day Years Used Date Smoking Tobacco: Former Cigarettes 1 53 1 2 2012 Smokeless Tobacco: Never Sex Assigned at Date Recorded Not on file Job Start Date Occupation Industry Not on file Not on file Not on file documented as of this encounter Plan of Treatment Not on file documented as of this encounter Visit Diagnoses Not on filedocumented in this encounter Care Teams Tube Coremaker Relationship Specialty Start Date End Date Juan Jose Ellington NP PCP - General Family Practice 06/26/18 Kenneth Garza PA-C [address] [phone] Specialist Thoracic Surgery 06/01/22 Johanna Son MD [address] [phone] Lung Cancer Parachute Repairer 06/01/22 documented as of this encounter
--- OUTSIDE RECORDS SUMMARY | 2024-06-11 17:54 | XMS_ITS | Encounter Summary ---
Author Organization [facility] Address [address] [place] [address] Care Team Providers Care Vice President Of Compliance Name Role Phone Juan Jose Ellington CLINICAL APPLICATIONS SPECIALIST Primary Care Provider + [phone] Reason for Visit * Reason Onset Date Comments durable medical equipment 06/10/2024 Encounter Details Date Type Department Care Team (Late st Contact Info) Description 06/10/2024 [facility] [place] [address] [place] [phone] Sarah Breaux MD [address] [facility] [address] [place] [address] durable medical equipment Social History Tobacco Use Types Packs/Day Years [...] as of this encounter Progress Notes * Angie Denis - 06/10/2024 3:57 PM EDT Confirmation of order received via fax from Paulina. Forms on patient chart (ONBASE). documented in this encounter Plan of Treatment Upcoming Encounters Date Type Department Care Team (Late st Contact Info) Description 08/09/2024 8:45 AM EDT Office Visit Pulmonolgy - [place] [address] [place] [phone] Sarah Breaux MD [address] [place] [address] documented as of this encounter Visit Diagnoses Not on filedocumented in this encounter Care Teams Vice President Of Compliance Relationship Specialty Start Date End Date Juan Jose Ellington NP [address] [place], [place] PCP - General 06/26/18 documented as of this encounter
--- OUTSIDE RECORDS SUMMARY | 2024-06-11 17:54 | XMS_ITS | Clinical Summary ---
Author Organization [facility] [place], Address [address] [place] [address] [place] [address] Phone Care Team Providers Care Universal Worker Assisted Living Name Role Phone Juan Jose Ellington NP Primary Care Provider [phone] Allergies No known active allergies Medications albuterol [...] Only [facility] [address] [place] [phone] Cortes oRwe MD 03/26/2024 Documentation Only [facility] [address] [place] [phone] Tatyana Ritchie 03/21/2024 1:30 PM EST Office Visit [facility] [address] [place] [phone] Cortes Rowe MD Stage 3b chronic kidney disease (HCC) (Primary Dx) 03/19/2024 Documentation Only [facility] [address] [place] [phone] Tatyana Ritchie 03/19/2024 Documentation Only [facility] [address] [place] [address] Tatyana Ritchie from Last 3 Months Family [...] Visit [facility] [address] [place] [phone] Cortes Rowe MD [address] [place] [address] Health Maintenance Due Date Last Done Comments Pneumococcal Vaccine: 50+ Ye ars (2 of 2 - PPSV23) 04/17/2021 02/20/2021 Influenza Vaccine (Season Ended) 2024 Pneumococcal Vaccine: Peds ( 0 to 5 Years) and At-Risk Patients (6 to 49 Years) Discontinued 02/20/2021 Hepatitis B Vaccine Aged Out No longe [...] Urine 0-5 0 - 5 /hpf [facility] RBC, Urine None seen 0 - 2 /hpf [facility] Squamous Epithelial, Urine 0-10 0 - 10 /hpf [facility] Casts None seen None seen /lpf [facility] Bacteria, Urine None seen None seen/Few [facility] 03/26/2024 9:00 AM EST 03/26/2024 Cortes Rowe MD LAB MICROBIOLOGY - GENERAL OR DERABLES Final Result Performing Organization Address City/[facility]/ZIP Co de Phone Number [facility] [address] [place] [address] * Protein, Total, Random Urine w/Creatinine (Protein/Creat Ratio) (03/26/2024 9:00 AM EST) Creatinine, Ur 85.8 Not Estab. mg/dL [facility] Protein, Ur 7.3 Not Estab. mg/dL [facility] Urine Protein/Creatin ine Ratio 85 0 - 200 mg/g creat [facility] 03/26/2024 9:00 AM EST 03/26/2024 Cortes Rowe MD LAB URINE ORDERABLES Final Re sult Performing Organization Address City/[facility]/ZIP Co de Phone Number [facility] [address] [place] [address] * Urine Albumin / Creatinine Ratio (03/26/2024 9:00 AM EST) Albumin, Urine <3.0 Not Estab. ug/mL [facility] Albumin/Creatin ine Ratio <3 0 - 29 mg/g creat [facility] Comment: ? Normal: ?0 - ??29 ? Moderately increased: 30 - 300 ? Severely increased: ? >300 03/26/2024 9:00 AM EST 03/26/2024 us Cortes Rowe MD LAB URINE ORDERABLES Final Re sult [facility] [address] [place] [address] * (ABNORMAL) Urinalysis with microscopic (03/26/2024 9:00 AM EST) Specific [place], Urine 1.012 1.005 - 1.030 [facility] pH Urine 6.0 5.0 - 7.5 [facility] Color, Urine Yellow Yellow [facility] [phone] Appearance Urine Clear Clear [facility] WBC Esterase Urine Trace(A) Negative [facility] Protein, Ur Negative Negative/Tra ce [facility] Glucose, Ur Negative Negative [facility] Ketones, Urine Negative Negative [facility] Blood Urine Negative Negative [facility] [phone] Bilirubin Urine Negative Negative [facility] Urobilinogen Urine 0.2 0.2 - 1.0 mg/dL [facility] Nitrite, Urine Negative Negative [facility] Microscopic Examination See below: [facility] Comment:Microscopic was isidro cated and was performed. 03/26/2024 9:00 AM EST 03/26/2024 Cortes Rowe MD LAB URINE ORDERABLES Final Re sult Performing Organization Address [facility] de Phone Number [facility] [address] [place] [address] * Iron Panel (Fe, TIBC, TSAT) (03/21/2024 2:21 PM EST) TIBC 374 250 - 450 ug/dL [facility] UIBC 281 118 - 369 ug/dL [facility] Iron 93 27 - 139 ug/dL [facility] Iron Saturation (TSat) 25 15 - 55 % [facility] Blood (Blood, Venous) 03/21/2024 2:21 PM EST 03/21/2024 Cortes Rowe MD LAB BLOOD ORDERABLES Final Re sult Performing Organization Address [facility] de Phone Number [facility] [address] [place] [address] * (ABNORMAL) Vitamin D 25 Hydroxy (03/21/2024 2:21 PM EST) Vitamin D, 25-OH, Total 29.6(L) 30.0 - 100.0 ng/mL [facility] Comment: Vitamin D deficiency has been defined by the [place] of Medicine and an Endocrine Society practice guideline as a level of serum 25-OH vitamin D less than 20 ng/mL (1,2). The Endocrine Society went on to further define vitamin D insufficiency as a level between 21 and 29 ng/mL (2). 1. IOM ([place] of Medicine). 2010. Dietary reference ?? intakes for calcium and D. [place]: The ?? National Academies Press. 2. Ubaldo MF, Janice STANLEY, Arturo REDDY, et al. ?? Evaluation, treatment, and prevention of vitamin D ?? deficiency: an Endocrine Society clinical practice ?? guideline. JCEM. 2010; 96(7):1911-30. Blood (Blood, Venous) 03/21/2024 2:21 PM EST 03/21/2024 us Cortes Rowe MD LAB BLOOD ORDERABLES Final Re sult [facility] [address] [place] [address] * CBC and Differential (03/21/2024 2:21 PM EST) WBC 8.2 3.4 - 10.8 x10E3/uL [facility] RBC 4.28 3.77 - 5.28 x10E6/uL [facility] Hemoglobin 13.5 11.1 - 15.9 g/dL [facility] Hematocrit 40.5 34.0 - 46.6 % [facility] MCV 95 79 - 97 fL [facility] MCH 31.5 26.6 - 33.0 pg [facility] MCHC 33.3 31.5 - 35.7 g/dL [facility] RDW 12.9 11.7 - 15.4 % [facility] Platelets 246 150 - 450 x10E3/uL [facility] Neutrophils Relative 70 Not Estab. % [facility] Lymphocytes Relative 13 Not Estab. % [facility] Monocytes 10 Not Estab. % [facility] Eosinophils Relative 5 Not Estab. % [facility] Basophils Relative 1 Not Estab. % [facility] Neutrophils Absolute 5.8 1.4 - 7.0 x10E3/uL [facility] Lymphocytes Absolute 1.1 0.7 - 3.1 x10E3/uL [facility] Monocytes Absolute 0.8 0.1 - 0.9 x10E3/uL [facility] Eosinophils Absolute 0.4 0.0 - 0.4 x10E3/uL [facility] Basophils Absolute 0.1 0.0 - 0.2 x10E3/uL [facility] Immature Granulocytes 1 Not Estab. % [facility] Immature Grans (Absolute) 0.1 0.0 - 0.1 x10E3/uL [facility] Blood (Blood, Venous) 03/21/2024 2:21 PM EST 03/21/2024 Cortes Rowe MD LAB BLOOD ORDERABLES Final Re sult [facility] [address] [place] [address] * (ABNORMAL) PTH, Intact (03/21/2024 2:21 PM EST) PTH 87(H) 15 - 65 pg/mL [facility] Blood (Blood, Venous) 03/21/2024 2:21 PM EST 03/21/2024 Cortes Rowe MD LAB BLOOD ORDERABLES Final Re sult Performing Organization Address City/State/[facility] Co de Phone Number [facility] [address] [place] [address] * (ABNORMAL) Ferritin (03/21/2024 2:21 PM EST) Ferritin 181(H) 15 - 150 ng/mL [facility] Blood (Blood, Venous) 03/21/2024 2:21 PM EST 03/21/2024 us Cortes Rowe MD LAB BLOOD ORDERABLES Final Re sult Performing Organization Address [facility]/ZIP Co de Phone Number [facility] [address] [place] [address] * (ABNORMAL) Renal Function Panel (03/21/2024 2:21 PM EST) Pathologist [facility] Glucose 82 70 - 99 mg/dL [facility] BUN 39(H) 8 - 27 mg/dL [facility] Creatinine 2.06(H) 0.57 - 1.00 mg/dL [facility] eGFR CKD-EPI CR 2020 24(L) >59 mL/min/1.7 3 [facility] BUN/Creatinine Ratio 19 12 - 28 [facility] Sodium 141 134 - 144 mmol/L [facility] Potassium 4.3 3.5 - 5.2 mmol/L [facility] Chloride 102 96 - 106 mmol/L [facility] Bicarbonate (CO2) 23 20 - 29 mmol/L [facility] Calcium 9.8 8.7 - 10.3 mg/dL [facility] Albumin 4.6 3.8 - 4.8 g/dL [facility] Phosphorus 3.6 3.0 - 4.3 mg/dL [facility] Blood (Blood, Venous) 03/21/2024 2:21 PM EST 03/21/2024 us Cortes Rowe MD LAB BLOOD ORDERABLES Final Re sult [facility] [address] [place] [phone] from Last 3 Months Insurance Medicaid [place] Medicare Medicare Medicaid [place] Care Teams Universal Worker Assisted Living Relationship Specialty Start Date End Date Juan Jose Ellington NP [address] [place] [address] PCP - General 12/25/18
--- OUTSIDE RECORDS SUMMARY | 2024-06-11 17:54 | XMS_ITS | Clinical Summary ---
Author Organization [facility] Address [address] [place] [address] Phone Care Team Providers Care Bag Machine Tender Name Role Phone Juan Jose Ellington NP Primary Care Provider [phone] Allergies Active Allergy Reactions Criticality Noted Date [...] Ventolin HFA 90 mcg/actuation inhalerIndicati ons:Emphysema, unspecified ([facility] V24, [facility] V28) INHALE 2 PUFFS INTO THE LUNGS EVERY 4 HOURS NEEDED FOR COUGH OR WHEEZING FOR UP TO 30 DAYS. 18 each 11 5 Active Oxygen Therapy via Nasal Cannula (O2) gas Inhale 2 L/min by mouth continuously. via nasal canula on exertion 5 Active albuterol 2.5 mg /3 mL (0.083 %) nebulizer solutionIndicat ions:Chronic obstructive pulmonary disease, unspecified COPD type ([facility] V24, [facility] V28) Take 3 mL (2.5 mg total) by nebulization every 6 (six) hours if needed for wheezing. 300 mL 2 5 05/04/19 26 Active Active Problems Problem Noted Date Diagnosed Date Bipolar disorder ([facility] V24, [facility] V28) 09/21 COPD (chronic obstructive pu lmonary disease) ([facility] V24, [facility] V28) 10/11/2018 Hyperlipidemia 10/11/2018 Hypertension 10/11/2018 Pulmonary nodule 10/11/2018 Overview (04/12/2024): RUL-05/30/18 S/p VATS & wedge resection-no malignancy Sarcoidosis of lung ([facility] V24) 10/11/2018 Encounters Date Type Department Care Team Description 06/10/2024 Telephone Pulmonolgy - [place] [facility] [address] [place] [address] Sarah Breaux MD durable medical equipment 06/06/2024 Telephone Pulmonolgy - [place] [facility] [address] [place] [address] Sarah Breaux MD dme request 05/21/2024 Telephone Lung Screening Program - [place] [facility] [address] [place] [address] Luba De Leon [place] Appointment (Open in Error) 05/21/2024 Telephone Lung Screening Program - [place] [address] [facility] [address] [place] [address] Luba De Leon MA 05/03/2024 10:10 AM EDT - 05/03/2024 11:59 PM EDT Hospital Encounter [facility] - [place] [address] [place] [address] Chronic obstructive pulmonary disease, unspecified COPD type (CMS/HCC V24, CMS/HCC V28); Sarcoidosis of lung ([facility] V24) Discharge Disposition: Home or Self Care 05/03/2024 9:00 AM EDT Office Visit Pulmonolgy - [place] [facility] [address] [place] [address] Sarah Breaux MD Chronic obstructive pulmonary disease, unspecified COPD type ([facility] V24, [facility] V28) (Primary Dx); Sarcoidosis of lung ([facility] V24); Congestive heart failure, unspecified HF chronicity, unspecified heart failure type (CMS/[facility] V24, [facility] V28) from Last 3 Months Immunizations Name Administration Dates Next Due Moderna SARS-CoV-2 COVID-19, mRNA, LNP-S, preservative free 05/30/2020,05/02/2020 Surgical History Surgery Date Site/Laterality Comments OTHER SURGICAL HISTORY 04/27/2018 Right [facility]ED[facility] GDNCE DX W/CELL WASHG SPX; COMMENT: negative malignancy TUBAL LIGATION PROCEDURE: HISTORICAL TUBAL LIGATION OTHER SURGICAL HISTORY 05/30/2018 Right PROCEDURE: CA BRONCHOSCOPY W/CPTR-ASST IMAGE-GUIDED NAVIGATION; COMMENT: da Arthur/VATS RUL wedge resection w/extensive pneumolysis OTHER SURGICAL HISTORY PROCEDURE: CA CARDIOVERSION ELECTIVE ARRHYTHMIA EXTERNAL Medical History Medical History Date Comments COPD (chronic obstructive pu lmonary disease) ([facility] V24, [facility] V28) 10/11/2018 DX:COPD (chronic o bstructive pulmonary disease) (HCC) Sarcoidosis of lung ([facility] V24) 10/11/2018 DX:Sarcoidosis of lung (HCC) Pulmonary nodule 10/11/2018 DX:Pulmonary no dule; COMMENT: RUL-05/30/18 S/p VATS & wedge resection-no malignancy Bipolar disorder ([facility] V2 4, 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, CMS/HCC V28) DX:Necrotizing granulomatous inflammation of lung (HCC) Vitamin D deficiency [...] 8:45 AM EDT Office Visit Pulmonolgy - [address] [place] [address] Sarah Breaux MD [address] [facility] [address] [place] [address] Health Maintenance Due Date Last Done Comments [...] (Low Dose CT) 06/12/2024 06/13/2023, 06/12/2023, 04/19/2022 COVID-19 Vaccine ( season) 2024 01/22/2024, 01/05/2022, 01/21/2021, Additional history exists Pneumococcal Vaccine: 50+ Years Completed 02/20/2021, 03/09/2016, 02/20/2015 Influenza Vaccine Completed 01/22/2024, , 02/20/2021, Additional [...] age to complete this topic Meningococcal B Vaccine Aged Out No l onger eligible based on patient's age to complete this topic RSV Immunization Patients Under 20 months Aged Out No longer eligible based on patient's age to complete this topic Varicella Vaccines Aged Out No longer eligible based on patient's age to complete this topic Procedures Procedure Name Priority Date/Time Associated Diagnosis Comments CT CHEST W CONTRAST Routine 06/11/2024 1 :19 PM EDT XR CHEST 2 VIEWS Routine 05/03/2024 10:4 0 AM EDT Chronic obstructive pulmonary disease, unspecified COPD type (CMS/HCC V24, CMS/HCC V28) Sarcoidosis of lung (CMS/[facility] V24) CT LUNG SCREENING LOW DOSE Routine 06/13/2023 3:45 PM EDT Encounter for screening for malignant neoplasm of respiratory organs from Last 3 Months or Most Recently Relevant to Health Maintenance Results * CT Chest w Contrast (06/11/2024 1:19 PM EDT) Anatomical Region Laterality Modality Body Computed Tomogra phy us Historical Provider MD MONTANEZ CT PROCEDURES Final R esult * XR Chest 2 Views (05/03/2024 10:40 [...] Signed Date: 05/03/2024 13:47 ET Workstation ID: [id number] Transcribed By: Self Edit Transcribed Date: 05/03/2024 [...] Signed Date: 05/03/2024 13:47 ET Workstation ID: [id number] Transcribed By: Self Edit Transcribed Date: 05/03/2024 13:46 ET Sarah Breaux MD IMG XR PROCEDURES Final Result * CT LUNG SCREENING LOW DOSE (06/13/2023 3:45 PM EDT) Anatomical Region Laterality Modality Computed Tomogra phy 06/12/2023 11:3 6 AM EDT Narrative 06/13/2023 3:45 PM EDT [facility] Diagnostic Imaging Department [address] [place], [place] [id number] Patient: ??NIKKI HURTADO ?/Age/Sex: 1945 - - F Unit#: ??[id number] ? Location/Status: ??SPDICATLS/REG CLI ? Mnemonic/Ordering Site: [...] Procedure Note Edgard Torres MD - 10/09/2023 [facility] Diagnostic Imaging Department [address] [place] [address] Patient: NIKKI HURTADO /Age/Sex: 1945 - 77 - F Unit#: [id number] Location/Status: SPDICATLS/REG CLI Mnemonic/[facility]ing [facility] Order[facility] Physician: JOHANNA SU MD CT Lung [...] by: EDGARD TORRES MD Dic Date/Time: 06/13/23 [id number] Sign date/Time: 06/13/23 3978 Johanna Su MD IMG CT PROCEDURES Final Result from Last 3 Months or Most Recently Relevant to Health Maintenance Insurance MEDICARE MEDICAID - [place] Care Teams Bag Machine Tender Relationship Specialty Start Date End Date Juan Jose Ellington NP [address] [place], [place] PCP - General 06/26/18
--- OUTSIDE RECORDS SUMMARY | 2024-06-11 17:54 | XMS_ITS | Encounter Summary ---
Author Organization [facility] Address [address] [place] [address] Phone Care Team Providers Care Consulting Sales Manager Name Role Phone Juan Jose Ellington PHOTOGRAPHIC EQUIPMENT TECHNICIAN Primary Care Provider [phone] Encounter Details Date Type Department Care Team (Late Contact Info) Description 10/25/2023 Documentation Only [facility] [address] [place] [address] Tatyana Ritchie [address] [place] [address] Social History Tobacco Use Types [...] [facility] [address] [place] [address] Cortes Rowe MD [address] [place] [address] [place] [address] documented as of this encounter Visit Diagnoses Not on filedocumented in this encounter Care Teams Consulting Sales Manager Relationship Specialty Start Date End Date Juan Jose Ellington NP [address] [facility] [place] [address] PCP - General 12/25/18 documented as of this encounter
--- OUTSIDE RECORDS SUMMARY | 2024-06-11 17:54 | XMS_ITS | Encounter Summary ---
Author Organization [facility] Address [address] [place] [address] Phone Care Team Providers Care Rackman Name Role Phone Juan Jose Ellington DIMENSION WAREHOUSE SUPERVISOR Primary Care Provider Encounter Details Date Type Department Care Team (Late Contact Info) Description 10/25/2023 Documentation Only [facility] [address] [place] [address] Tatyana Ritchie [address] [place] [address] Social History Tobacco Use Types [...] Visit [facility] [address] [place] [address] Cortes Rowe MD [address] [place] [address] [place] [address] documented as of this encounter Visit Diagnoses Not on filedocumented in this encounter Care Teams Rackman Relationship Specialty Start Date End Date Juan Jose Ellington NP [address] [facility] [place] [address] PCP - General 12/25/18 documented as of this encounter
--- OUTSIDE RECORDS SUMMARY | 2024-06-11 17:54 | XMS_ITS | Encounter Summary ---
Author Organization [facility] Address [address] [place] [address] Phone Care Team Providers Care Director Of Field Sales Name Role Phone Juan Jose Ellington POST TENSIONING IRONWORKER Primary Care Provider [phone] Encounter Details Date Type Department Care Team (Late Contact Info) Description 10/12/2023 Documentation Only [facility] [address] [place] [address] Tatyana Ritchie [address] [place] [address] Social History Tobacco Use Types [...] [facility] [address] [place] [address] Cortes Rowe MD [address] [place] [address] [place] [address] documented as of this encounter Visit Diagnoses Not on filedocumented in this encounter Care Teams Director Of Field Sales Relationship Specialty Start Date End Date Juan Jose Ellington NP [address] [place] [address] PCP - General 12/25/18 documented as of this encounter
--- OUTSIDE RECORDS SUMMARY | 2024-06-11 17:54 | XMS_ITS | Encounter Summary ---
Author Organization [facility] Address [address] [place] [address] Care Team Providers Care Advertising Material Distributor Name Role Phone Juan Jose Ellington NP Primary Care Provider Unavail able Kenneth Garza PA-C Unavailable Johanna Son MD Unavailable Reason for Visit * Reason Comments E-prescribe Rx Request Encounter Details Date Type Department Care Team Description 10/05/2019 Refill Pulmonology - [place] [address] [facility] [address] [place] [address] Sarah Breaux MD [address] [place] [address] E-prescribe Rx Request Social History [...] (HCC) documented in this encounter Care Teams Advertising Material Distributor Relationship Specialty Start Date End Date Juan Jose Ellington NP PCP - General Family Practice 06/26/18 Kenneth Garza PA-C [address] [address] Specialist Thoracic Surgery 06/01/22 Johanna Son MD [address] [address] Lung Cancer Child Custody Evaluator 06/01/22 documented as of this encounter
--- OUTSIDE RECORDS SUMMARY | 2024-06-11 17:54 | XMS_ITS | Encounter Summary ---
Author Organization [facility] Address [address] [place] [address] Phone Care Team Providers Care Inspector Barrel Name Role Phone Juan Jose Ellington SKI BINDING FITTER AND REPAIRER Primary Care Provider [phone] Encounter Details Date Type Department Care Team (Late Contact Info) Description 03/19/2024 Documentation Only [facility] [address] [place] [address] Tatyana Ritchie [address] [place] [address] Social History Tobacco Use Types [...] Visit [facility] [address] [place] [address] Cortes Rowe MD [address] [place] [address] [place] [address] documented as of this encounter Visit Diagnoses Not on filedocumented in this encounter Care Teams Inspector Barrel Relationship Specialty Start Date End Date Juan Jose Ellington NP [address] [place] [address] PCP - General 12/25/18 documented as of this encounter
--- OUTSIDE RECORDS SUMMARY | 2024-06-11 17:54 | XMS_ITS | Encounter Summary ---
Author Organization [facility] Address [address] [place] [address] Care Team Providers Care Splitter Hand Name Role Phone Juan Jose Ellington NP Primary Care Provider Unavail able Kenneth Garza PA-C Unavailable [phone] Johanna Son MD Unavailable Encounter Details Date Type Department Care Team Description 06/01/2022 [facility] Lung Screening Program [address] [phone] Johanna Son MD [address] [phone] Social History Tobacco Use Types Packs/Day Years [...] on filedocumented in this encounter Care Teams Splitter Hand Relationship Specialty Start Date End Date Juan Jose Ellington NP PCP - General Family Practice 06/26/18 Kenneth Garza PA-C [address] [address] Specialist Thoracic Surgery 06/01/22 Johanna Son MD [address] [address] Lung Cancer Skein Washer 06/01/22 documented as of this encounter
== END 2024-06-11 15:22 | disposition home or self-care (01) ==
LOC: HO.HCS 14:59
PROVIDERS: PCP Nurse Practitioner Family; Visit Provider Internal Medicine Cardiovascular Disease
DX: I34.81 Nonrheumatic mitral (valve) annulus calcification (principal); I48.0 Paroxysmal atrial fibrillation
CPT/HCPCS: 93010; 99214; G2211

== ENCOUNTER → 2024-06-11 14:58 | Outpatient (BNVA) | payer MEDICARE, MEDICAID, SELFPAY | PROVIDERS: PCP Nurse Practitioner Family; Visit Provider Internal Medicine Cardiovascular Disease | DX: I34.81 Nonrheumatic mitral (valve) annulus calcification (principal); I48.0 Paroxysmal atrial fibrillation | CPT/HCPCS: 93005; 99212 ==

== ENCOUNTER 2024-06-13 12:45 | Outpatient (REF) | payer MEDICARE, MEDICAID, SELFPAY ==
[2024-06-13 16:32] LABS: Appearance Urine Clear; Color Urine Yellow; Glucose Urine UA Negative (Negative); Leukocyte Esterase Urine Negative (Negative); Nitrite Urine Negative (Negative); PH 6.5 (5.0-9.0); Specific Gravity - Urine <= 1.005 (1.005-1.025); Urine Blood Negative (Negative); Urine Ketones Negative (Negative); Urine Protein Negative (Neg-Trace)
--- OUTSIDE RECORDS SUMMARY | 2024-06-13 17:51 | XMS_ITS | Encounter Summary ---
Author Organization [facility] Address [address] [place] [address] Phone Care Team Providers Care Hook Loader Name Role Phone Juan Jose Ellington ELECTRICIAN RECTIFIER MAINTENANCE Primary Care Provider [phone] Encounter Details Date Type Department Care Team (Late Contact Info) Description 03/19/2024 Documentation Only [facility] [address] [place] [address] Tatyana Ritchie [address] [place] [address] Social History Tobacco Use Types [...] Visit [facility] [address] [place] [address] Cortes Rowe MD [address] [place] [address] [place] [address] documented as of this encounter Visit Diagnoses Not on filedocumented in this encounter Care Teams Hook Loader Relationship Specialty Start Date End Date Juan Jose Ellington NP [address] [place] [address] PCP - General 12/25/18 documented as of this encounter
--- OUTSIDE RECORDS SUMMARY | 2024-06-13 17:51 | XMS_ITS | Clinical Summary ---
Author Organization [facility] [place], Address [address] [place] [address] [place] [address] Phone Care Team Providers Care Private Chef Name Role Phone Juan Jose Ellington NP Primary Care Provider [phone] Allergies No known active allergies Medications albuterol [...] Only [facility] [place] [address] [place] [address] Cortes Rowe MD 03/26/2024 Documentation Only [facility] [address] [place] [phone] Tatyana Ritchie 03/21/2024 1:30 PM EST Office Visit [facility] [address] [place] [phone] Cortes Rowe MD Stage 3b chronic kidney disease (HCC) (Primary Dx) 03/19/2024 Documentation Only [facility] [address] [place] [address] Tatyana Ritchie 03/19/2024 Documentation Only [facility] [address] [place] [address] Tatyana Ritchie from Last 3 Months Family [...] Visit [facility] [address] [place] [phone] Cortes Rowe MD [address] [place] [address] Health Maintenance Due Date Last Done [...] Urine 0-5 0 - 5 /hpf [facility] RBC, Urine None seen 0 - 2 /hpf [facility] Squamous Epithelial, Urine 0-10 0 - 10 /hpf [facility] Casts None seen None seen /lpf [facility] Bacteria, Urine None seen None seen/Few [facility] 03/26/2024 9:00 AM EST 03/26/2024 Cortes Rowe MD LAB MICROBIOLOGY - GENERAL OR DERABLES Final Result Performing Organization Address City/[facility]/ZIP Co de Phone Number [facility] [address] [place] [address] * Protein, Total, Random Urine w/Creatinine (Protein/Creat Ratio) (03/26/2024 9:00 AM EST) Creatinine, Ur 85.8 Not Estab. mg/dL [facility] Protein, Ur 7.3 Not Estab. mg/dL [facility] Urine Protein/Creatin ine Ratio 85 0 - 200 mg/g creat [facility] 03/26/2024 9:00 AM EST 03/26/2024 Cortes Rowe MD LAB URINE ORDERABLES Final Re sult Performing Organization Address City/[facility]/ZIP Co de Phone Number [facility] [address] [place] [address] * Urine Albumin / Creatinine Ratio (03/26/2024 9:00 AM EST) Albumin, Urine <3.0 Not Estab. ug/mL [facility] Albumin/Creatin ine Ratio <3 0 - 29 mg/g creat [facility] Comment: ? Normal: ?0 - ??29 ? Moderately increased: 30 - 300 ? Severely increased: ? >300 03/26/2024 9:00 AM EST 03/26/2024 us Cortes Rowe MD LAB URINE ORDERABLES Final Re sult [facility] [address] [place] [address] * (ABNORMAL) Urinalysis with microscopic (03/26/2024 9:00 AM EST) Specific [place], Urine 1.012 1.005 - 1.030 [facility] pH Urine 6.0 5.0 - 7.5 [facility] Color, Urine Yellow Yellow [facility] Appearance Urine Clear Clear [facility] WBC Esterase Urine Trace(A) Negative [facility] Protein, Ur Negative Negative/Tra ce [facility] Glucose, Ur Negative Negative [facility] Ketones, Urine Negative Negative [facility] Blood Urine Negative Negative [facility] [phone] Bilirubin Urine Negative Negative [facility] Urobilinogen Urine 0.2 0.2 - 1.0 mg/dL [facility] [phone] Nitrite, Urine Negative Negative [facility] Microscopic Examination See below: [facility] [phone] Comment:Microscopic was isidro cated and was performed. 03/26/2024 9:00 AM EST 03/26/2024 Cortes Rowe MD LAB URINE ORDERABLES Final Re sult Performing Organization Address [facility] de Phone Number [facility] [address] [place] [address] * Iron Panel (Fe, TIBC, TSAT) (03/21/2024 2:21 PM EST) TIBC 374 250 - 450 ug/dL [facility] UIBC 281 118 - 369 ug/dL [facility] Iron 93 27 - 139 ug/dL [facility] Iron Saturation (TSat) 25 15 - 55 % [facility] Blood (Blood, Venous) 03/21/2024 2:21 PM EST 03/21/2024 Cortes Rowe MD LAB BLOOD ORDERABLES Final Re sult Performing Organization Address [facility] de Phone Number [facility] [address] [place] [address] * (ABNORMAL) Vitamin D 25 Hydroxy (03/21/2024 2:21 PM EST) Vitamin D, 25-OH, Total 29.6(L) 30.0 - 100.0 ng/mL [facility] Comment: Vitamin D deficiency has been defined by the [place] of [employer] and an Endocrine Society practice guideline as a level of serum 25-OH vitamin D less than 20 ng/mL (1,2). The Endocrine Society went on to further define vitamin D insufficiency as a level between 21 and 29 ng/mL (2). 1. IOM ([place] of Medicine). 2010. Dietary reference ?? intakes [...] BLOOD ORDERABLES Final Re sult [facility] [address] [place] [address] * CBC and Differential (03/21/2024 2:21 PM EST) WBC 8.2 3.4 - 10.8 x10E3/uL [facility] RBC 4.28 3.77 - 5.28 x10E6/uL [facility] Hemoglobin 13.5 11.1 - 15.9 g/dL [facility] Hematocrit 40.5 34.0 - 46.6 % [facility] MCV 95 79 - 97 fL [facility] MCH 31.5 26.6 - 33.0 pg [facility] MCHC 33.3 31.5 - 35.7 g/dL [facility] RDW 12.9 11.7 - 15.4 % [facility] Platelets 246 150 - 450 x10E3/uL [facility] Neutrophils Relative 70 Not Estab. % [facility] Lymphocytes Relative 13 Not Estab. % [facility] Monocytes 10 Not Estab. % [facility] Eosinophils Relative 5 Not Estab. % [facility] Basophils Relative 1 Not Estab. % [facility] Neutrophils Absolute 5.8 1.4 - 7.0 x10E3/uL [facility] Lymphocytes Absolute 1.1 0.7 - 3.1 x10E3/uL [facility] Monocytes Absolute 0.8 0.1 - 0.9 x10E3/uL [facility] Eosinophils Absolute 0.4 0.0 - 0.4 x10E3/uL [facility] Basophils Absolute 0.1 0.0 - 0.2 x10E3/uL [facility] Immature Granulocytes 1 Not Estab. % [facility] Immature Grans (Absolute) 0.1 0.0 - 0.1 x10E3/uL [facility] Blood (Blood, Venous) 03/21/2024 2:21 PM EST 03/21/2024 Cortes Rowe MD LAB BLOOD ORDERABLES Final Re sult [facility] [address] [place] [address] * (ABNORMAL) PTH, Intact (03/21/2024 2:21 PM EST) PTH 87(H) 15 - 65 pg/mL [facility] Blood (Blood, Venous) 03/21/2024 2:21 PM EST 03/21/2024 Cortes Rowe MD LAB BLOOD ORDERABLES Final Re sult Performing Organization Address City/State/[facility] Co de Phone Number [facility] [address] [place] [address] * (ABNORMAL) Ferritin (03/21/2024 2:21 PM EST) Ferritin 181(H) 15 - 150 ng/mL [facility] Blood (Blood, Venous) 03/21/2024 2:21 PM EST 03/21/2024 us Cortes Rowe MD LAB BLOOD ORDERABLES Final Re sult Performing Organization Address [facility]/ZIP Co de Phone Number [facility] [address] [place] [address] * (ABNORMAL) Renal Function Panel (03/21/2024 2:21 PM EST) Pathologist [facility] Glucose 82 70 - 99 mg/dL [facility] BUN 39(H) 8 - 27 mg/dL [facility] Creatinine 2.06(H) 0.57 - 1.00 mg/dL [facility] eGFR CKD-EPI CR 2020 24(L) >59 mL/min/1.7 3 [facility] BUN/Creatinine Ratio 19 12 - 28 [facility] Sodium 141 134 - 144 mmol/L [facility] Potassium 4.3 3.5 - 5.2 mmol/L [facility] Chloride 102 96 - 106 mmol/L [facility] Bicarbonate (CO2) 23 20 - 29 mmol/L [facility] Calcium 9.8 8.7 - 10.3 mg/dL [facility] Albumin 4.6 3.8 - 4.8 g/dL [facility] Phosphorus 3.6 3.0 - 4.3 mg/dL [facility] Blood (Blood, Venous) 03/21/2024 2:21 PM EST 03/21/2024 us Cortes Rowe MD LAB BLOOD ORDERABLES Final Re sult [facility] [address] [place] [phone] from Last 3 Months Insurance Medicaid [place] Medicare Medicare Medicaid [place] Care Teams Private Chef Relationship Specialty Start Date End Date Juan Jose Ellington NP [address] [place] [address] PCP - General 12/25/18
--- OUTSIDE RECORDS SUMMARY | 2024-06-13 17:51 | XMS_ITS | Encounter Summary ---
Author Organization [facility] Address [address] [place] [address] Phone Care Team Providers Care Forestry Contractor Name Role Phone Juan Jose Ellington CLOTH COLORER Primary Care Provider [phone] Encounter Details Date Type Department Care Team (Late Contact Info) Description 10/25/2023 Documentation Only [facility] [address] [place] [address] Tatyana Ritchie [address] [place] [address] Social History Tobacco Use Types [...] Visit [facility] [address] [place] [address] Cortes Rowe MD [address] [place] [address] [place]. [place] [address] documented as of this encounter Visit Diagnoses Not on filedocumented in this encounter Care Teams Forestry Contractor Relationship Specialty Start Date End Date Juan Jose Ellington NP [address] [place] [address] PCP - General 12/25/18 documented as of this encounter
--- OUTSIDE RECORDS SUMMARY | 2024-06-13 17:51 | XMS_ITS | Clinical Summary ---
Author Organization 175 [facility] Address [address] [place] [address] Phone Care Team Providers Care Outside Energy Sales Representatives Name Role Phone Juan Jose Ellington NP Primary Care Provider [phone] Allergies Active Allergy Reactions Criticality Noted Date [...] Ventolin HFA 90 mcg/actuation inhalerIndicati ons:Emphysema, unspecified ([facility] V24, [facility] V28) INHALE 2 PUFFS INTO THE LUNGS EVERY 4 HOURS NEEDED FOR COUGH OR WHEEZING FOR UP TO 30 DAYS. 18 each 11 5 Active Oxygen Therapy via Nasal Cannula (O2) gas Inhale 2 L/min by mouth continuously. via nasal canula on exertion 5 Active albuterol 2.5 mg /3 mL (0.083 %) nebulizer solutionIndicat ions:Chronic obstructive pulmonary disease, unspecified COPD type ([facility] V24, [facility] V28) Take 3 mL (2.5 mg total) by nebulization every 6 (six) hours if needed for wheezing. 300 mL 2 5 05/04/19 26 Active Active Problems Problem Noted Date Diagnosed Date Bipolar disorder ([facility] V24, [facility] V28) 09/21 COPD (chronic obstructive pu lmonary disease) ([facility] V24, [facility] V28) 10/11/2018 Hyperlipidemia 10/11/2018 Hypertension 10/11/2018 Pulmonary nodule 10/11/2018 Overview (04/12/2024): RUL-05/30/18 S/p VATS & wedge resection-no malignancy Sarcoidosis of lung ([facility] V24) 10/11/2018 Encounters Date Type Department Care Team Description 06/10/2024 Telephone Pulmonolgy [place] 175 [facility] [address] [place] [address] Sarah Breaux MD durable medical equipment 06/06/2024 Telephone Pulmonolgy - [place] 175 [facility] [address] [place] [address] Sarah Breaux MD dme request 05/21/2024 Telephone Lung Screening Program - [place] [address] [facility] [address] [place] [address] Luba De Leon [place] Appointment (Open in Error) 05/21/2024 Telephone Lung Screening Program - [place] [address] [facility] [address] [place] [address] Luba De Leon MA 05/03/2024 10:10 AM EDT - 05/03/2024 11:59 PM EDT Hospital Encounter [facility] - [place] [address] [place] [address] Chronic obstructive pulmonary disease, unspecified COPD type (CMS/HCC V24, CMS/HCC V28); Sarcoidosis of lung ([facility] V24) Discharge Disposition: Home or Self Care 05/03/2024 9:00 AM EDT Office Visit Pulmonolgy - [place] 175 [facility] [address] [place] [address] Sarah Breaux MD Chronic obstructive pulmonary disease, unspecified COPD type ([facility] V24, [facility] V28) (Primary Dx); Sarcoidosis of lung ([facility] V24); Congestive heart failure, unspecified HF chronicity, unspecified heart failure type (CMS/[facility] V24, [facility] V28) from Last 3 Months Immunizations Name Administration Dates Next Due Moderna SARS-CoV-2 COVID-19, mRNA, LNP-S, preservative free 05/30/2020,05/02/2020 Surgical History Surgery Date Site/Laterality Comments OTHER SURGICAL HISTORY 04/27/2018 Right [facility]ED[facility] GDNCE DX W/CELL WASHG SPX; COMMENT: negative malignancy TUBAL LIGATION PROCEDURE: HISTORICAL TUBAL LIGATION OTHER SURGICAL HISTORY 05/30/2018 Right PROCEDURE: OR BRONCHOSCOPY W/CPTR-ASST IMAGE-GUIDED NAVIGATION; COMMENT: da Arthur/VATS RUL wedge resection w/extensive pneumolysis OTHER SURGICAL HISTORY PROCEDURE: OR CARDIOVERSION ELECTIVE ARRHYTHMIA EXTERNAL Medical History Medical History Date Comments COPD (chronic obstructive pu lmonary disease) ([facility] V24, [facility] V28) 10/11/2018 DX:COPD (chronic o bstructive pulmonary disease) (HCC) Sarcoidosis of lung ([facility] V24) 10/11/2018 DX:Sarcoidosis of lung (HCC) Pulmonary nodule 10/11/2018 DX:Pulmonary no dule; COMMENT: RUL-05/30/18 S/p VATS & wedge resection-no malignancy Bipolar disorder ([facility] V2 4, [facility] V28) 10/11/2018 DX:Bipolar disorder (HCC) Hypertension 10/11/2018 DX:Hypertension Hyperlipidemia 10/11/2018 DX:Hyperlipidemi a SHARON (acute kidney injury) (C MS/HCC V24) DX:SHARON (acute kidney injury) (HCC) Atrial fibrillation (CMS/HCC V24, CMS/HCC V28) DX:Atrial fibrillation (HCC) Renal disease DX:Renal disease Leukocytosis DX:Leukocytosis Steele nephropathy DX:Steele n ephropathy Mediastinal lymphadenopathy DX:M ediastinal lymphadenopathy [...] 8:45 AM EDT Office Visit Pulmonolgy - [address] [place] [address] Sarah Breaux MD 175 [facility] [address] [place] [address] Health Maintenance Due Date Last Done Comments [...] (CMS/HCC V24, CMS/HCC V28) Sarcoidosis of lung ([facility] V24) CT LUNG SCREENING LOW DOSE Routine [...] Signed Date: 05/03/2024 13:47 ET Workstation ID: [id number] Transcribed By: Self Edit Transcribed Date: 05/03/2024 [...] Signed Date: 05/03/2024 13:47 ET Workstation ID: [id number] Transcribed By: Self Edit Transcribed Date: 05/03/2024 13:46 ET Sarah Breaux MD IMG XR PROCEDURES Final Result * CT LUNG SCREENING LOW DOSE (06/13/2023 3:45 PM EDT) Anatomical Region Laterality Modality Computed Tomogra phy 06/12/2023 11:3 6 AM EDT Narrative 06/13/2023 3:45 PM EDT [facility] Diagnostic Imaging Department [address] [place], [place] [address] Patient: ??NIKKI HURTADO ?/Age/Sex: 1945 - - F Unit#: ??[id number] ? Location/Status: ??SPDICATLS/REG CLI ? Mnemonic/Ordering Site: [...] Procedure Note Edgard Torres MD - 10/09/2023 [facility] Diagnostic Imaging Department [address] [place] [address] Patient: NIKKI HURTADO /Age/Sex: 1945 - 77 - F Unit#: [id number] Location/Status: SPDICATLS/REG CLI Mnemonic/Ordering Site: [facility] Ordering Physician: JOHANNA SU MD CT Lung [...] by: EDGARD TORRES MD Dic Date/Time: 06/13/23 8526 Sign date/Time: 06/13/23 1813 Johanna Su MD IMG CT PROCEDURES Final Result from Last 3 Months or Most Recently Relevant to Health Maintenance Insurance MEDICARE [place]ICA[place] - [place] Care Teams Outside Energy Sales Representatives Relationship Specialty Start Date End Date Juan Jose Ellington NP [address] [place], [place] PCP - General 06/26/18
--- OUTSIDE RECORDS SUMMARY | 2024-06-13 17:51 | XMS_ITS | Encounter Summary ---
Author Organization [facility] Address [address] [place] [address] Phone Care Team Providers Care Roustabout Hand Name Role Phone Juan Jose Ellington MANAGER GAMES Primary Care Provider [phone] Encounter Details Date Type Department Care Team (Late Contact Info) Description 10/25/2023 Documentation Only [facility] [address] [place] [address] Tatyana Ritchie [address] [place] [address] Social History Tobacco Use Types [...] [facility] [address] [place] [address] Cortes Rowe MD [address] [place] [address] [place] [address] documented as of this encounter Visit Diagnoses Not on filedocumented in this encounter Care Teams Roustabout Hand Relationship Specialty Start Date End Date Juan Jose Ellington NP [address] [facility] [place] [address] PCP - General 12/25/18 documented as of this encounter
--- OUTSIDE RECORDS SUMMARY | 2024-06-13 17:51 | XMS_ITS | Encounter Summary ---
Author Organization [facility] Address [address] [place] [address] Phone Care Team Providers Care Dramatic Arts Historian Name Role Phone Juan Jose Ellington LEGAL PROJECT MANAGER Primary Care Provider [phone] Encounter Details Date Type Department Care Team (Late Contact Info) Description 10/12/2023 Documentation Only [facility] [address] [place] [address] Tatyana Ritchie [address] [place] [address] Social History Tobacco Use Types [...] [facility] [address] [place] [address] Cortes Rowe MD [address] [place] [address] [place] [address] documented as of this encounter Visit Diagnoses Not on filedocumented in this encounter Care Teams Dramatic Arts Historian Relationship Specialty Start Date End Date Juan Jose Ellington NP [address] [facility] [place] [address] PCP - General 12/25/18 documented as of this encounter
--- OUTSIDE RECORDS SUMMARY | 2024-06-13 17:51 | XMS_ITS | Encounter Summary ---
Author Organization [facility] Address [address] [place] [address] Phone Care Team Providers Care Advertising Clerk Name Role Phone Juan Jose Ellington FISCAL CLERK Primary Care Provider [phone] Encounter Details Date Type Department Care Team (Late Contact Info) Description 10/25/2023 Documentation Only [facility] [address] [place] [address] Tatyana Ritchie [address] [place] [address] Social History Tobacco Use Types [...] [facility] [address] [place] [address] Cortes Rowe MD [address] [place] [address] [place] [address] documented as of this encounter Visit Diagnoses Not on filedocumented in this encounter Care Teams Advertising Clerk Relationship Specialty Start Date End Date Juan Jose Ellington NP [address] [place] [address] PCP - General 12/25/18 documented as of this encounter
--- OUTSIDE RECORDS SUMMARY | 2024-06-13 17:51 | XMS_ITS | Encounter Summary ---
Author Organization [facility] Address [address] [place] [address] Phone Care Team Providers Care Cafe Site Attendant Name Role Phone Juan Jose Ellington DAY LIGHT RELIEF OPERATOR Primary Care Provider [phone] Encounter Details Date Type Department Care Team (Late Contact Info) Description 03/19/2024 Documentation Only [facility] Of [address] [place] [address] Tatyana Ritchie [address] [place] [address] Social History Tobacco Use Types [...] Visit [facility] [address] [place] [address] Cortes Rowe MD [address] [place] [address] [place] [address] documented as of this encounter Visit Diagnoses Not on filedocumented in this encounter Care Teams Cafe Site Attendant Relationship Specialty Start Date End Date Juan Jose Ellington NP [address] [facility] [place] [address] PCP - General 12/25/18 documented as of this encounter
--- OUTSIDE RECORDS SUMMARY | 2024-06-13 17:51 | XMS_ITS | Encounter Summary ---
Author Organization [facility] Address [address] [place] [address] Care Team Providers Care Mechanical Product Design Engineer Name Role Phone Juan Jose Ellington NP Primary Care Provider [phone] Reason for Visit * Reason Onset Date Comments dme request 06/06/2024 Encounter Details Date Type Department Care Team ([facility] st Contact Info) Description 06/06/2024 Telephone [facility] [place] 175 [facility] [address] [place] [id number] Sarah Breaux MD 175 [facility] [address] [place] [address] dme request Social History Tobacco Use Types [...] 8:45 AM EDT Office Visit Pulmonolgy - [place] [address] [facility] [address] [place] [address] Sarah Breaux MD [address] [place] [address] documented as of this encounter Visit Diagnoses Not on filedocumented in this encounter Care Teams Mechanical Product Design Engineer Relationship Specialty Start Date End Date Juan Jose Ellington NP [address] [place], [place] PCP - General 06/26/18 documented as of this encounter
--- OUTSIDE RECORDS SUMMARY | 2024-06-13 17:51 | XMS_ITS | Encounter Summary ---
Author Organization [facility] Address [address] [place] [address] Phone Care Team Providers Care Certified Professional Midwife Name Role Phone Juan Jose Ellington DEHAIRER Primary Care Provider [phone] Encounter Details Date Type Department Care Team (Late Contact Info) Description 03/26/2024 Documentation Only [facility] [address] [place] [address] Tatyana Ritchie [address] [place] [address] Social History Tobacco Use Types [...] [facility] [address] [place] [address] Cortes Rowe MD [address] [place] [address] [place] [address] documented as of this encounter Visit Diagnoses Not on filedocumented in this encounter Care Teams Certified Professional Midwife Relationship Specialty Start Date End Date Juan Jose Ellington NP [address] [facility] [place] [address] PCP - General 12/25/18 documented as of this encounter
--- OUTSIDE RECORDS SUMMARY | 2024-06-13 17:51 | XMS_ITS | Encounter Summary ---
Author Organization [facility] Address [address] [place] [address] Care Team Providers Care Fitting Room Checker Name Role Phone Juan Jose Ellington TRANSPLANTER Primary Care Provider [phone] Reason for Visit * Reason Onset Date Comments durable medical equipment 06/10/2024 Encounter Details Date Type Department Care Team (Late st Contact Info) Description 06/10/2024 [facility]phone [facility] [place] [address] [place] [id number] Sarah Breaux MD [address] [facility] [address] [place] [address] durable medical equipment Social History Tobacco Use [...] as of this encounter Progress Notes * Dhaval Yang MA - 06/12/2024 12:56 PM EDT Order faxed to nanci * Angie Denis - 06/10/2024 3:57 PM EDT Confirmation of order received via fax from [facility]. Forms on patient chart (ONBASE). documented in this encounter Plan of Treatment Upcoming Encounters Date Type Department Care Team (Late st Contact Info) Description 08/09/2024 8:45 AM EDT Office Visit [facility] - [place] [address] [facility] [address] [place] [address] Sarah Breaux MD [address] [facility] [address] [place] [address] documented as of this encounter Visit Diagnoses Not on filedocumented in this encounter Care Teams Fitting Room Checker Relationship Specialty Start Date End Date Juan Jose Ellington NP [address] [place], [place] PCP - General 06/26/18 documented as of this encounter
== END 2024-06-13 12:46 | disposition home or self-care (01) ==
LOC: HO.HMGCLNP 12:45
PROVIDERS: PCP Nurse Practitioner Family; Visit Provider Nurse Practitioner Family
DX: N17.9 Acute kidney failure, unspecified (principal); I50.9 Heart failure, unspecified; J18.9 Pneumonia, unspecified organism
CPT/HCPCS: 81003

== ENCOUNTER 2024-07-06 13:02 | Outpatient (AMB) | payer MEDICARE, MEDICAID, SELFPAY ==
--- OUTSIDE RECORDS SUMMARY | 2024-07-06 13:03 | XMS_ITS | Encounter Summary ---
Author Organization [facility] Address [address] [place] [address] Phone Care Team Providers Care Supervisor Laundry Name Role Phone Juan Jose Ellington SALES PROFESSIONAL Primary Care Provider [phone] Encounter Details Date Type Department Care Team (Late Contact Info) Description 03/19/2024 Documentation Only [facility] [address] [place] [address] Tatyana Ritchie [address] [place] [address] Social History Tobacco Use Types [...] [facility] [address] [place] [address] Cortes Rowe MD [address] [place] [address] [place] [address] documented as of this encounter Visit Diagnoses Not on filedocumented in this encounter Care Teams Supervisor Laundry Relationship Specialty Start Date End Date Juan Jose Ellington NP [address] [place] [address] PCP - General 12/25/18 documented as of this encounter
--- OUTSIDE RECORDS SUMMARY | 2024-07-06 13:03 | XMS_ITS | Encounter Summary ---
Author Organization [facility] Address [address] [place] [address] Phone Care Team Providers Care Rehab Specialist Name Role Phone Juan Jose Ellington RIPSHEAR OPERATOR Primary Care Provider [phone] Encounter Details Date Type Department Care Team (Late Contact Info) Description 10/25/2023 Documentation Only [facility] [address] [place] [address] Tatyana Ritchie [address] [place] [address] Social History Tobacco Use Types [...] [facility] [address] [place] [address] Cortes Rowe MD [address] [place] [address] [place] [address] documented as of this encounter Visit Diagnoses Not on filedocumented in this encounter Care Teams Rehab Specialist Relationship Specialty Start Date End Date Juan Jose Ellington NP [address] [facility] [place] [address] PCP - General 12/25/18 documented as of this encounter
--- OUTSIDE RECORDS SUMMARY | 2024-07-06 13:03 | XMS_ITS | Encounter Summary ---
Author Organization [facility] Address [address] [place] [address] Phone Care Team Providers Care Employee Relations Director Name Role Phone Juan Jose Ellington TAIL PULLER Primary Care Provider Encounter Details Date Type Department Care Team (Late Contact Info) Description 10/25/2023 Documentation Only [facility] [address] [place] [address] Tatyana Ritchie [address] [place] [address] Social History Tobacco Use Types [...] Visit [facility] [address] [place] [address] Cortes Rowe MD [address] [place] [address] [place] [address] documented as of this encounter Visit Diagnoses Not on filedocumented in this encounter Care Teams Employee Relations Director Relationship Specialty Start Date End Date Juan Jose Ellington NP [address] [place] [address] PCP - General 12/25/18 documented as of this encounter
--- OUTSIDE RECORDS SUMMARY | 2024-07-06 13:03 | XMS_ITS | Encounter Summary ---
Author Organization [facility] Address [address] [place] [address] Phone Care Team Providers Care Fire Assistant Name Role Phone Juan Jose Ellington AUXILIARY OPERATOR Primary Care Provider [phone] Encounter Details Date Type Department Care Team (Late Contact Info) Description 03/19/2024 Documentation Only [facility] [address] [place] [address] Tatyana Ritchie [address] [place] [address] Social History Tobacco Use Types [...] Visit [facility] [address] [place] [address] Cortes Rowe MD [address] [place] [address] [place] [address] documented as of this encounter Visit Diagnoses Not on filedocumented in this encounter Care Teams Fire Assistant Relationship Specialty Start Date End Date Juan Jose Ellington NP [address] [place] [address] PCP - General 12/25/18 documented as of this encounter
--- OUTSIDE RECORDS SUMMARY | 2024-07-06 13:03 | XMS_ITS | Clinical Summary ---
Author Organization [facility], Address [address] [place] [address] [place] [address] Phone Care Team Providers Care Commercial Horticulture Instructor Name Role Phone Juan Jose Ellington NP Primary Care Provider [phone] Allergies No known active allergies Medications albuterol [...] malignancy Sarcoidosis of lung 10/11/2018 08/27/19 20 Family History Relation Status Comments Father Social [...] Visit [facility] [place], [address] [place] [address] Cortes Rowe MD [address] [facility] [place] [address] Health Maintenance Due Date Last Done Comments Pneumococcal Vaccine: 50+ Ye ars (2 of 2 - PPSV23) 04/17/2021 02/20/2021 Influenza Vaccine (Season Ended) 2024 Pneumococcal Vaccine: Peds ( 0 to 5 Years) and At-Risk Patients (6 to 49 Years) Discontinued 02/20/2021 Hepatitis B Vaccine Aged Out No longe r eligible based on patient's age to complete this topic Insurance Medicaid [place] Medicare Medicare Medicaid [place] Care Teams Commercial Horticulture Instructor Relationship Specialty Start Date End Date Juan Jose Ellington NP [address] [place] [address] [facility] - General 12/25/18
--- OUTSIDE RECORDS SUMMARY | 2024-07-06 13:03 | XMS_ITS | Encounter Summary ---
Author Organization [facility] Address [address] [place] [address] Phone Care Team Providers Care Color Print Inspector Name Role Phone Juan Jose Ellington CLAY WASHER Primary Care Provider [phone] Encounter Details Date Type Department Care Team (Late Contact Info) Description 03/26/2024 Documentation Only [facility] [address] [place] [address] Tatyana Ritchie [address] [place] [address] Social History Tobacco Use Types [...] [facility] [address] [place] [address] Cortes Rowe MD [address] [place] [address] [place] [address] documented as of this encounter Visit Diagnoses Not on filedocumented in this encounter Care Teams Color Print Inspector Relationship Specialty Start Date End Date Juan Jose Ellington NP [address] [facility] [place] [address] PCP - General 12/25/18 documented as of this encounter
--- OUTSIDE RECORDS SUMMARY | 2024-07-06 13:04 | XMS_ITS | Encounter Summary ---
Author Organization [facility] Address [address] [place] [address] Phone Care Team Providers Care Desulphurizer Operator Name Role Phone Juan Jose Ellington JOB SETTER Primary Care Provider [phone] Encounter Details Date Type Department Care Team (Late Contact Info) Description 10/12/2023 Documentation Only [facility] [address] [place] [address] Tatyana Ritchie [address] [place] [address] Social History Tobacco Use Types [...] Visit [facility] [address] [place] [address] Cortes Rowe MD [address] [place] [address] [place] [address] documented as of this encounter Visit Diagnoses Not on filedocumented in this encounter Care Teams Desulphurizer Operator Relationship Specialty Start Date End Date Juan Jose Ellington NP [address] [facility] [place] [address] PCP - General 12/25/18 documented as of this encounter
--- OUTSIDE RECORDS SUMMARY | 2024-07-06 13:04 | XMS_ITS | Encounter Summary ---
Author Organization [facility] Address [address] [place] [address] Phone Care Team Providers Care Track Liner Operator Name Role Phone Juan Jose Ellington STEWARD DISHWASHER Primary Care Provider Encounter Details Date Type Department Care Team (Late Contact Info) Description 10/25/2023 Documentation Only [facility] [address] [place] [address] Tatyana Ritchie [address] [place] [address] Social History Tobacco Use Types [...] [facility] [address] [place] [address] Cortes Rowe MD [address] [place] [address] [place] [address] documented as of this encounter Visit Diagnoses Not on filedocumented in this encounter Care Teams Track Liner Operator Relationship Specialty Start Date End Date Juan Jose Ellington NP [address] [place] [address] PCP - General 12/25/18 documented as of this encounter
--- NOTE | 2024-07-06 13:12 | AM.OFFWIN_ITS ---
Intake Vital Signs 07/06/24 13:13 Height 5 ft 1 in Weight 190 lb BMI 35.9 BP 106/64 Blood Pressure Location Lt brachial Position Sitting Respiration 16 Pulse 73 Pulse Source Pulse Oximeter Temp 101.7 F H Temp Source Oral Pulse Oximetry (%) 98 Oxygen Delivery Method Nasal Cannula Intake Visit Reasons: EP-?uti Intake Note: Pt is here today c/o burnign upon urination x2days ago and has tremers more than usual Patient Tobacco Use Status: Former Tobacco user Allergies Sulfa (Sulfonamide Antibiotics) [SULFA (SULFONAMIDE ANTIBIOTICS)] Allergy (Severe, Verified 07/06/24 13:26) RASH, Anaphylaxis HPI HPI Comments History of Present Illness Details History of Present Illness - The patient is a 78 year old female wh o is here with her daughter presenting with concerns for a urinary tract infection. - She has reported urinary symptoms of d ysuria and increased frequency, persisting for three days. - A fever was observed despite the patie nt?s inability to self-diagnose febrile states, measurement recording 101.7?F today. - Chronic kidney disease is noted, with recent history indicating possible deterioration in renal function. - Recent cultures returned no growth, ex cept for a Klebsiella infection earlier in the year. - Patients daughter states she ends up i n the psychiatric area of the hospital when the UTI's get out of control Physical Exam General: Cooperative, healthy appearing, comfortable, no acute distress and well developed Orientation: Patient oriented x3 Limitations: wearing nc w/oxygen Head: Normal to inspection Ears: Hearing grossly normal bilaterally Nose: Normal External nose present Face and sinus: Normal facial exam Eyes: Appearance normal, both eyes and all related structures Neck: Normal visual inspection and Yes full ROM Respiratory: Normal respiratory effort and able to speak in complete sentences. Skin: No rashes or lesions noted Neuro: Patient oriented x3 Extremities: Normal to inspection [facility] Medical History (Updated 07/06/24 @ 13:43 by Lynette Powell PA-C) Paroxysmal atrial fibrillation Emphysema of lung Tardive dyskinesia Coarse tremors Hypersomnia Snoring SHARON (acute kidney injury) Mediastinal lymphadenopathy Atrial fibrillation Dyslipidemia Kidney disease Leukocytosis Necrotizing granulomatous inflammation of lung Bipolar 1 disorder Vitamin D deficiency COPD (chronic obstructive pulmonary disease) Sarcoidosis HTN (hypertension) [place] nephropathy Surgical History History of cardioversion History of bronchoscopy Family History Child No Financial Resp No problems noted. 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 Current occupational exposures/hazards: No Cognitive needs: No Hearing needs: No Vision needs: Yes Review of Systems Const All systems reviewed & are unremarkable except as noted in HPI and below Physical Exam Vital Signs: Last Vital Signs Temp 101.7 F H 07/06/24 13:13 Pulse 73 07/06/24 13:13 Resp 16 07/06/24 13:13 BP 106/64 07/06/24 13:13 Pulse Ox 98 07/06/24 13:13 Oxygen Delivery Method Nasal Cannula 07/06/24 13:13 BMI result Body Mass Index 35.9 Assessment & Plan Assessment & Plan (1) UTI (urinary tract infection): Code(s): N39.0 - Urinary tract infection, site not specified Qualifiers: Urinary tract infection type: acute cystitis Hematuria presence: with hematuria Qualified Code(s): N30.01 - Acute cystitis with hematuria Plan: UA 1+ leuks, neg nitrites, 3+ blood. patricio Treatment with cefuroxime is commenced for the urinary tract infection, tailored to a once daily dosing regimen x10d due to chronic kidney disease. The patient's careful monitoring is advised to mitigate the risk of septic progression due to her fever. Both patient and her daughter are advised on early warning signs that necessitate prompt follow-up with the ED, especially due to past experiences of psychiatric manifestations associated with such infections. Patient was informed and verbally consented to the use of an ambient scribe for clinic note documentation during this visit. Orders: Orders AMB Urinalysis Automated Today Z13.9 - Encounter for screening, unspecified Medications: New cefuroxime axetil 500 mg PO DAILY 10 tabs 0RF Coding Level of Care Code Est Pt Level 3 (81706) Diagnoses Acute cystitis with hematuria N30.01 Urinary tract infection type: acute cystitis Hematuria presence: with hematuria
[2024-07-06 13:13] VITALS: BP 106/64; PULSE 73; RESP 16; TEMP 38.7; O2SAT 98; BMI 35.9
== END 2024-07-06 14:08 | disposition home or self-care (01) ==
PROVIDERS: PCP Nurse Practitioner Family; Visit Provider Physician Assistant
DX: N30.01 Acute cystitis with hematuria (principal)

== ENCOUNTER 2024-07-06 13:02 | Outpatient (REF) | payer MEDICARE, MEDICAID, SELFPAY | END 2024-07-06 13:03 | disposition home or self-care (01) | LOC: HO.LAB 13:02 | PROVIDERS: PCP Nurse Practitioner Family | DX: N30.01 Acute cystitis with hematuria (principal) | CPT/HCPCS: 87086; 87088; 87186; 99212 ==

== ENCOUNTER → 2024-07-16 23:59 | Outpatient (BNV) | payer MEDICARE, MEDICAID, SELFPAY | PROVIDERS: PCP Nurse Practitioner Family; Visit Provider Nurse Practitioner Family | DX: I13.0 Hypertensive heart and chronic kidney disease with heart failure and stage 1 through stage 4 chronic kidney disease, or unspecified chronic kidney disease (principal); N18.4 Chronic kidney disease, stage 4 (severe); J44.0 Chronic obstructive pulmonary disease with (acute) lower respiratory infection; I50.33 Acute on chronic diastolic (congestive) heart failure; J43.9 Emphysema, unspecified | CPT/HCPCS: G0179 ==

== ENCOUNTER 2024-07-22 12:55 | Outpatient (AMB) | payer MEDICARE, MEDICAID, SELFPAY ==
[2024-07-22 13:00] VITALS: BP 110/72; PULSE 63; O2SAT 95; BMI 36.3
--- NOTE | 2024-07-22 13:00 | MHC.PC.OV ---
Vital Signs 07/22/24 13:00 Height 5 ft 1 in Weight 192 lb BMI 36.3 BP 110/72 Blood Pressure Location Rt brachial Position Sitting Pulse 63 Pulse Source Pulse Oximeter Pulse Oximetry (%) 95 Oxygen Delivery Method Room Air Intake Visit Reasons: ANNUAL PE/covered by [facility] Medicine Technologist Required: No Accompanied by: Self / Same As Patient Allergies Sulfa (Sulfonamide Antibiotics) [SULFA (SULFONAMIDE ANTIBIOTICS)] Allergy (Severe, Verified 07/22/24 13:01) RASH, Anaphylaxis Medication List - Last Reconciled 07/22/24 by Juan Jose Ellington [facility]- acetaminophen 325 mg PO QID PRN 7 days albuterol sulfate 90 mcg/actuation (Ventolin HFA) 2 puffs inhalation Q6H PRN amiodarone 100 mg (1/2 x 200 mg) PO DAILY 90 days apixaban (Eliquis) 5 mg PO BID cholecalciferol (vitamin D3) 50 mcg PO DAILY cranberry 1,000 mg PO DAILY [disposable bed pads As directed, uses 6 per day] [disposable gloves As directed, uses 8 per day to provide incontinence care] [disposable incontinence wipes As directed, uses 10 per day to provide incontinence care] [disposable pull up briefs As directed, uses 8 per day] wrnscyjuuho-vwulshgik-ouvaslhx 100-62.5-25 mcg (Trelegy Ellipta) 1 ea inhalation DAILY furosemide 20 mg PO DAILY hydroxyzine HCl 10 mg PO DAILY PRN lamotrigine 50 mg PO BEDTIME metoprolol succinate ER 50 mg (2 x 25 mg) PO DAILY olanzapine 7.5 mg PO BEDTIME simvastatin 20 mg PO BEDTIME walker Standard walker, no wheels [washable bed pads As directed] Tobacco use date assessed: 04/29/24 Fall risk assessment: No Falls in past year Last assessed Fall Risk: 07/22/24 Dental Screening Dental Screen Date: 04/29/24 HPI ANNUAL PE/covered by [facility] HPI Details History of Present Illness The patient is a 78-year-old female presenting for a routine physical examination and evaluation for a potential urinary tract infection. She has a known history of bilateral upper extremity tremors, which have been exacerbated in the past by certain medications such as those containing cinnamon. She denies experiencing fever, chills, or systemic symptoms that would commonly accompany a UTI. Additionally, the patient requires supplemental oxygen during movement sessions, indicative of an underlying pulmonary condition. Her preventive healthcare measures, such as mammograms and colon screenings, are current and up-to-date. uses [id number]-o2 Health Maintenance - Mammogram: Up-to-date - Colon screening: Up-to-date with Cologuard - Annual CAT scans for pulmonary nodules -sees a senior abap developer, neurologist, urologist, biodiesel processing technician, and a ocean clam boat captain Social History - Accompanied by her daughter. Review of Systems - General: Denies fever and chills. - Respiratory: Denies increased shortness of breath at rest. - Cardiovascular: Denies chest pain. - Neurological: Reports bilateral upper extremity tremors. - Genitourinary: Reports suspicion of a urinary tract infection. Physical Exam General: Cooperative, healthy appearing, comfortable, no acute distress and well developed, obese Orientation: Patient oriented x3 Limitations: No limitations Head: Normal to inspection Ears: Hearing grossly normal bilaterally Nose: Normal external nose present Face and sinus: Normal facial exam Eyes: Appearance normal, both eyes and all related structures Neck: Normal visual inspection and Yes full ROM Respiratory: Normal respiratory effort and able to speak in complete sentences. Clear to auscultation bilaterally. Patient wears oxygen especially with movement. Cardiovascular: Regular rate and rhythm. Normal S1 and S2 GI: Normal to inspection. Soft to palpation and nontender Skin: No rashes or lesions noted Neuro: Patient oriented x3. Bilateral upper extremity tremors noted. Extremities: Trace edema to bilateral lower extremities. Results Plan I will assess the possibility of a urinary tract infection based on patient-reported suspicion, though no fever or chills were noted. The bilateral upper extremity tremors, exacerbated by specific medications, require careful evaluation to prevent further worsening. Obesity is noted and we will continue to ensure routine health maintenance measures like mammograms, colon screenings, and monitoring for pulmonary nodules to maintain comprehensive care. Discussion Notes Today, I discussed the potential of a urinary tract infection with the patient, although systemic symptoms are not present. The bilateral tremors, potentially influenced by medications, were also reviewed to ensure no exacerbations occur. The patient?s obesity, supplemental oxygen use, and related health maintenance will be carefully managed, ensuring continuity in her preventive care and screenings. Patient Instructions - Monitor for any changes or new symptoms that may suggest a urinary tract infection. - Continue using supplemental oxygen during movement as needed. - Ensure health screenings and follow-ups remain current. - Follow up with specialists as advised for ongoing management of existing health issues. 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 Current occupational exposures/hazards: No Cognitive needs: No Hearing needs: No Vision needs: Yes Questionnaire Thrive Questionnaire Date Thrive assessed: 07/22/24 I am a: Parent/Caregiver What is your living situation today?: I have a steady place to live Within the past 12 months, did the food you bought not last and you didn't have the money to get more?: Never true Within the past 12 months, did you worry whether your food would run out before you got money to buy more?: Never true Do you have trouble paying for medicines?: No Do you have trouble getting transportation to medical appointments?: No Do you have trouble paying your heating and electricity bill?: No Do you have trouble taking care of your child, family member or friend?: I choose not to answer this question Do you have trouble with day-to-day activities such as bathing, preparing meals, shopping, managing finances, etc.?: Yes Are you currently unemployed and looking for a job?: Yes Are you interested in more education?: No Please select the resources that you would like help with: None Currently or been in a relationship where the following occur: No concerns reported THRIVE Score: 0 AUDIT C Alcohol Use Questionnaire (AUDIT-C) 1. How often do you have a drink containing alcohol?: Never 3. How often do you have six or more drinks on one occasion?: Never Total Score: 0 Score Reviewed/Action Taken: Yes CANDY-7 AMB Questionnaire CANDY-7 Date CANDY - 7 assessed: 04/29/24 Source: Developed by Drs. Torrey Prater, Rylee De Leon, Winston Gutierrez and colleagues, with an educational eli from [employer]. Physical exam (Primary Care) Vital Signs: Last Vital Signs Pulse 63 07/22/24 13:00 BP 110/72 07/22/24 13:00 Pulse Ox 95 07/22/24 13:00 Oxygen Delivery Method Room Air 07/22/24 13:00 BMI result Body Mass Index 36.3 Tobacco/Smoking Status: Tobacco use Status Tobacco use date assessed 04/29/24 07/22/24 13:04 Patient Tobacco Use Status Former Tobacco user 07/22/24 13:04 Tobacco use type Cigarette 07/22/24 13:04 e-Cigarette/Vaping Use Never Used 07/22/24 13:04 Thrive Assessment: Date of Thrive Assessment Date Thrive assessed 07/22/24 07/22/24 13:04 Currently or been in a relationship where the following occur: No concerns reported Coding Level of Care Code Est Pt Prev Care >65y(10705) Diagnoses Dysuria R30.0 Encounter for routine adult physical exam with abnormal findings Z00. Osteopenia M85.80 Assessment & Plan Assessment & Plan (1) Dysuria: Code(s): R30.0 - Dysuria Category: Medical (2) Encounter for routine adult physical exam with abnormal findings: Code(s): Z00.01 - Encounter for general adult medical examination with abnormal findings Category: Medical (3) Osteopenia: Code(s): M85.80 - Other specified disorders of bone density and structure, unspecified site Category: Medical Plan . Orders: Orders UA CC w/rflx Micro + Cult Today R30.0 - Dysuria XR DEXA axial skeleton Today M85.80 - Other specified disorders of bone density and structure, unspecified site Urine Culture Today R30.0 - Dysuria Complete Blood Count Auto Diff Today Z00.01 - Encounter for general adult medical examination with abnormal findings Comprehensive [place]. Panel Fast Today Z00.01 - Encounter for general adult medical examination with abnormal findings TSH reflex Free T4 Today Z00.01 - Encounter for general adult medical examination with abnormal findings Lipid Panel Today Z00.01 - Encounter for general adult medical examination with abnormal findings
--- OUTSIDE RECORDS SUMMARY | 2024-07-22 13:56 | XMS_ITS | Clinical Summary ---
Author Organization 175 [facility] Address [address] [place] [address] Phone Care Team Providers Care Occupational Therapy Technician Name Role Phone Juan Jose Ellington NP Primary Care Provider [phone] Allergies Active Allergy Reactions Criticality Noted Date [...] Ventolin HFA 90 mcg/actuation inhalerIndicati ons:Emphysema, unspecified ([facility] V24, [facility] V28) INHALE 2 PUFFS INTO THE LUNGS EVERY 4 HOURS NEEDED FOR COUGH OR WHEEZING FOR UP TO 30 DAYS. 18 each 11 5 Active Oxygen Therapy via Nasal Cannula (O2) gas Inhale 2 L/min by mouth continuously. via nasal canula on exertion 5 Active albuterol 2.5 mg /3 mL (0.083 %) nebulizer solutionIndicat ions:Chronic obstructive pulmonary disease, unspecified COPD type ([facility] V24, [facility] V28) Take 3 mL (2.5 mg total) by nebulization every 6 (six) hours if needed for wheezing. 300 mL 2 5 05/04/19 26 Active Active Problems Problem Noted Date Diagnosed Date Bipolar disorder ([facility] V24, [facility] V28) 09/21 COPD (chronic obstructive pu lmonary disease) ([facility] V24, [facility] V28) 10/11/2018 Hyperlipidemia 10/11/2018 Hypertension 10/11/2018 Pulmonary nodule 10/11/2018 Overview (04/12/2024): RUL-05/30/18 S/p VATS & wedge resection-no malignancy Sarcoidosis of lung ([facility] V24) 10/11/2018 Encounters Date Type Department Care Team Description 07/19/2024 Telephone Pulmonolgy - [place] [address] [facility] [address] [place] [phone] Sarah Breaux MD Medication Problem 06/10/2024 Telephone Pulmonolgy - [place] [address] [facility] [address] [place] [phone] Sarah Breaux MD durable medical equipment 06/06/2024 Telephone Pulmonolgy - [place] [address] [facility] [address] [place] [phone] Sarah Breaux MD dme request 05/21/2024 Telephone Lung Screening Program - [place] [address] [facility] [address] [place] [phone] Luba De Leon [place] Appointment (Open in Error) 05/21/2024 Telephone Lung Screening Program - [place] [address] [facility] [address] [place] [phone] Luba De Leon [place] 05/03/2024 10:10 AM EDT - 05/03/2024 11:59 PM EDT Hospital Encounter [facility] [address] [place] [address] Chronic obstructive pulmonary disease, unspecified COPD type ([facility] V24, [facility] V28); Sarcoidosis of lung ([facility] V24) Discharge Disposition: Home or Self Care 05/03/2024 9:00 AM EDT Office Visit Pulmonolgy - [place] [address] [facility] [address] [place] [address] Sarah Breaux MD Chronic obstructive pulmonary disease, unspecified COPD type ([facility] V24, [facility] V28) (Primary Dx); Sarcoidosis of lung ([facility] V24); Congestive heart failure, unspecified HF chronicity, unspecified heart failure type ([facility] V24, [facility] V28) from Last 3 Months Immunizations Name Administration Dates Next Due Moderna SARS-CoV-2 COVID-19, mRNA, LNP-S, preservative free 05/30/2020,05/02/2020 Surgical History Surgery Date Site/Laterality Comments OTHER SURGICAL HISTORY 04/27/2018 Right PROCEDURE: [place] BRNCHSC INCL FLUOR GDNCE DX W/CELL WASHG SPX; COMMENT: negative malignancy TUBAL LIGATION PROCEDURE: HISTORICAL TUBAL LIGATION OTHER SURGICAL HISTORY 05/30/2018 Right PROCEDURE: [place] BRONCHOSCOPY W/CPTR-ASST IMAGE-GUIDED NAVIGATION; COMMENT: da Arthur/VATS RUL wedge resection w/extensive pneumolysis OTHER SURGICAL HISTORY PROCEDURE: [place] CARDIOVERSION ELECTIVE ARRHYTHMIA EXTERNAL Medical History Medical History Date Comments COPD (chronic obstructive pu lmonary disease) ([facility] V24, [facility] V28) 10/11/2018 DX:COPD (chronic o bstructive pulmonary disease) (HCC) Sarcoidosis of lung ([facility] V24) 10/11/2018 DX:Sarcoidosis of lung (HCC) Pulmonary nodule 10/11/2018 DX:Pulmonary no dule; COMMENT: RUL-4/10/19 S/p VATS & wedge resection-no malignancy Bipolar disorder (CMS/HCC V2 4, CMS/HCC V28) 10/11/2018 DX:Bipolar disorder (HCC) Hypertension 10/11/2018 DX:Hypertension Hyperlipidemia 10/11/2018 DX:Hyperlipidemi a SHARON (acute kidney injury) (C [facility]/HCC V24) DX:SHARON (acute kidney injury) (HCC) Atrial fibrillation (CMS/HCC V24, CMS/HCC V28) DX:Atrial fibrillation (HCC) Renal disease DX:Renal disease Leukocytosis DX:Leukocytosis [place] nephropathy DX:[place] n ephropathy Mediastinal lymphadenopathy DX:M ediastinal lymphadenopathy [...] 8:45 AM EDT Office Visit Pulmonolgy - [place] [address] [facility] [address] [place] [phone] Sarah Breaux MD [address] [facility] [address] [place] [address] Health Maintenance Due Date Last Done Comments [...] Chronic obstructive pulmonary disease, unspecified COPD type ([facility] V24, [facility] V28) Sarcoidosis of lung ([facility] V24) CT LUNG SCREENING LOW DOSE Routine 06/13/2023 3:45 PM EDT Encounter for screening for malignant neoplasm of respiratory organs from Last 3 Months or Most Recently Relevant to Health Maintenance Results * CT Chest w Contrast (06/11/2024 1:19 PM EDT) Anatomical Region Laterality Modality Body Computed Tomogra phy Historical Provider MD LINGG CT PROCEDURES Final R esult * XR [...] Signed Date: 05/03/2024 13:47 ET Workstation ID: [id number] Transcribed By: Self Edit Transcribed Date: 05/03/2024 [...] Signed Date: 05/03/2024 13:47 ET Workstation ID: [id number] Transcribed By: Self Edit Transcribed Date: 05/03/2024 13:46 ET us Sarah Breaux MD IMG XR PROCEDURES Final Result * CT LUNG SCREENING LOW DOSE (06/13/2023 3:45 PM EDT) Anatomical Region Laterality Modality Computed Tomogra phy 06/12/2023 11:3 6 AM EDT Narrative 06/13/2023 3:45 PM EDT [facility] Diagnostic Imaging Department [address] [place] [address] Patient: ??NIKKI HURTADO ?/Age/Sex: 1945 - 77 - F Unit#: ??[id number] ? Location/Status: ??SPDICATLS/REG CLI ? Mnemonic/Ordering Site: [...] Procedure Note Edgard Torres MD - 10/09/2023 [facility] Diagnostic Imaging Department [address] [place] [address] Patient: NIKKI HURTADO Jory /Age/Sex: 1945 - 77 - F Unit#: [id number] Location/Status: SPDICATLS/REG CLI Mnemonic/Ordering Site: [facility] Ordering Physician: MULUGETA SU MD CT Lung [...] Insurance MEDICARE MEDICAID - [place] Care Teams Occupational Therapy Technician Relationship Specialty Start Date End Date Juan Jose Ellington NP [address] [place], [place] PCP - General 06/26/18
== END 2024-07-22 13:38 | disposition home or self-care (01) ==
LOC: HO.HMCC 12:56
PROVIDERS: PCP Nurse Practitioner Family; Visit Provider Nurse Practitioner Family
DX: Z00.01 Encounter for general adult medical examination with abnormal findings (principal); R30.0 Dysuria; M85.80 Other specified disorders of bone density and structure, unspecified site

== ENCOUNTER 2024-07-22 12:55 | Outpatient (REF) | payer MEDICARE, MEDICAID, SELFPAY ==
[2024-07-22 16:10] LABS: Appearance Urine Clear; Color Urine Yellow; Glucose Urine UA Negative (Negative); Leukocyte Esterase Urine Small (1+) (Negative); Nitrite Urine Negative (Negative); Specific Gravity - Urine <= 1.005 (1.005-1.025); UMIC TRIGGER UACC YES; Urine Blood Negative (Negative); Urine Ketones Negative (Negative); Urine Protein Negative (Neg-Trace)
[2024-07-22 16:12] LABS: Bacteria Urine 4+ (None Seen); Hyaline Casts Urine 0-2 /LPF (0-2); RBC Urine 0-2 /HPF (0-2); Squamous Epithelial Cell Urine 0-2 /HPF (0-2); UACC Culture Trigger YES
== END 2024-07-22 12:56 | disposition home or self-care (01) ==
LOC: HO.HMGCLDS 12:55
PROVIDERS: PCP Nurse Practitioner Family; Visit Provider Nurse Practitioner Family
DX: Z00.01 Encounter for general adult medical examination with abnormal findings (principal); R30.0 Dysuria; M85.80 Other specified disorders of bone density and structure, unspecified site; G25.2 Other specified forms of tremor; E66.9 Obesity, unspecified; Z68.36 Body mass index [BMI] 36.0-36.9, adult; Z99.81 Dependence on supplemental oxygen; Z13.30 Encounter for screening examination for mental health and behavioral disorders, unspecified
CPT/HCPCS: 81001; 87086; 87088; 87186; 99397

== ENCOUNTER 2024-08-03 10:57 | Outpatient (REF) | payer MEDICARE, MEDICAID, SELFPAY ==
[2024-08-03 13:42] LABS: MANUAL DIFF FLAG NO
[2024-08-03 13:44] LABS: Basophils Absolute Auto 0.1 X10*3/uL (0.0-0.2); Basophils Percent Auto 0.7 % (0-2); Eosinophils Absolute Auto 0.5 X10*3/uL (0.0-0.4); Eosinophils Percent Auto 7.1 % (0-4); Hematocrit 37.4 % (37.0-47.0); Hemoglobin 11.8 g/dl (12.0-16.0); Imm Gran Abs Auto 0.02 X10*3/uL (0.00-0.03); Imm Gran Pct Auto 0.3 % (0.0-0.4); Lymphocytes Absolute Auto 0.9 X10*3/uL (1.2-4.9); Lymphocytes Percent Auto 12.3 % (20-40); Mean Corpuscular HGB Conc 31.6 g/dl (31.0-35.0); Mean Corpuscular Hemoglobin 30.6 pg (27.0-33.0); Mean Corpuscular Volume 96.9 fL (80.0-98.0); Monocytes Absolute Auto 0.6 X10*3/uL (0.1-1.2); Neutrophils Absolute Auto 5.1 x10*3/uL (2.0-8.3); Neutrophils Percent Auto 71.6 % (45-73); Platelet Count 207 X10*3/uL (160-400); Red Blood Count 3.86 X10*6/uL (4.20-5.50); Red Cell Distribution Width 13.4 % (11.0-16.0); White Blood Count 7.2 X10*3/uL (4.8-10.8)
[2024-08-03 14:05] LABS: Alanine Aminotransferase 11 U/L (0-31); Albumin Level 4.2 g/dL (3.5-5.0); Alkaline Phosphatase 64 U/L (39-117); Anion Gap 13 (12-20); Aspartate Amino Transferase 21 U/L (5-31); Bilirubin Total 0.8 mg/dL (0.0-1.0); Blood Urea Nitrogen 34 mg/dL (9-16); Calcium 9.6 mg/dL (8.4-10.2); Carbon Dioxide 28 mmol/L (22-29); Chloride 106 mmol/L (96-108); Cholesterol 140 mg/dL (<200); Estimated Glomerular Filt Rate 22; Glucose Fasting 98 mg/dL (60-99); HDL Cholesterol 40 mg/dL (>40); Iron 60 mcg/dL (30-160); LDL Cholesterol Calculated 81 mg/dL (<100); Percent Iron Saturation 20 % (15-50); Potassium 4.4 mmol/L (3.3-5.1); Sodium 143 mmol/L (135-145); Total Iron Binding Capacity 304 mcg/dL (228-428); Total Protein 6.5 g/dL (6.5-8.0); Triglycerides 95 mg/dL (<150); Unsaturated Iron Binding 244 ug/dL
[2024-08-03 14:10] LABS: Parathyroid Hormone Intact 158.3 pg/mL (8.7-77.1)
[2024-08-03 14:21] LABS: TSH reflex Free T4 0.09 uIU/mL (0.32-4.0)
[2024-08-03 14:23] LABS: Ferritin 216 ng/mL (10-250)
[2024-08-03 15:00] LABS: Free T4 (Free Thyroxine) 1.47 ng/dL (0.71-1.85)
== END 2024-08-03 10:58 | disposition home or self-care (01) ==
LOC: HO.HMGCLDS 10:57
PROVIDERS: PCP Nurse Practitioner Family; Referring Provider Nurse Practitioner Family; Visit Provider Internal Medicine Nephrology
DX: N18.4 Chronic kidney disease, stage 4 (severe) (principal); Z00.01 Encounter for general adult medical examination with abnormal findings
CPT/HCPCS: 36415; 80053; 80061; 82306; 82728; 83540; 83970; 84439; 84443; 85025

== ENCOUNTER 2024-08-06 09:40 | Outpatient (REF) | payer MEDICARE, MEDICAID, SELFPAY ==
--- OUTSIDE RECORDS SUMMARY | 2024-08-06 12:30 | XMS_ITS | Clinical Summary ---
Author Organization 175 [facility] Address [address] [place] [address] Phone Care Team Providers Care Denial Resolution Specialist Name Role Phone Juan Jose Ellington NP Primary Care Provider [phone]- [phone] Allergies Active Allergy Reactions Criticality Noted Date [...] Ventolin HFA 90 mcg/actuation inhalerIndicati ons:Emphysema, unspecified ([facility] V24, [facility] V28) INHALE 2 PUFFS INTO THE LUNGS EVERY 4 HOURS NEEDED FOR COUGH OR WHEEZING FOR UP TO 30 DAYS. 18 each 11 5 Active Oxygen Therapy via Nasal Cannula (O2) gas Inhale 2 L/min by mouth continuously. via nasal canula on exertion 5 Active albuterol 2.5 mg /3 mL (0.083 %) nebulizer solutionIndicat ions:Chronic obstructive pulmonary disease, unspecified COPD type ([facility] V24, [facility] V28) Take 3 mL (2.5 mg total) by nebulization every 6 (six) hours if needed for wheezing. 300 mL 2 5 05/04/19 26 Active Active Problems Problem Noted Date Diagnosed Date Bipolar disorder ([facility] V24, [facility] V28) 09/21 COPD (chronic obstructive pu lmonary disease) ([facility] V24, [facility] V28) 10/11/2018 Hyperlipidemia 10/11/2018 Hypertension 10/11/2018 Pulmonary nodule 10/11/2018 Overview (04/12/2024): RUL-05/30/18 S/p VATS & wedge resection-no malignancy Sarcoidosis of lung ([facility] V24) 10/11/2018 Encounters Date Type Department Care Team Description 07/19/2024 Telephone Pulmonolgy - [place] 175 [facility] [address] [place] [phone] Sarah Breaux MD Medication Problem 06/10/2024 Telephone Pulmonolgy - [place] [address] [facility] [address] [place] [address] Sarah Breaux MD durable medical equipment 06/06/2024 Telephone Pulmonolgy - [place] [address] [facility] [address] [place] [phone] Sarah Breaux MD dme request 05/21/2024 Telephone Lung Screening Program - [place] [address] [facility] [address] [place] [phone] Luba De Leon [place] Appointment (Open in Error) 05/21/2024 Telephone Lung Screening Program - [address] [place] [address] Luba De Leon [place] from Last 3 Months Immunizations Name Administration Dates Next Due Moderna SARS-CoV-2 COVID-19, mRNA, LNP-S, preservative free 05/30/2020,05/02/2020 Surgical History Surgery Date Site/Laterality Comments OTHER SURGICAL HISTORY 04/27/2018 Right PROCEDURE: [place] BRNCHSC INCL FLUOR GDNCE DX W/CELL WASHG SPX; COMMENT: negative malignancy TUBAL LIGATION PROCEDURE: HISTORICAL TUBAL LIGATION OTHER SURGICAL HISTORY 05/30/2018 Right PROCEDURE: [place] BRONCHOSCOPY W/CPTR-ASST IMAGE-GUIDED NAVIGATION; COMMENT: da Arthur/VATS RUL wedge resection w/extensive pneumolysis OTHER SURGICAL HISTORY PROCEDURE: [place] CARDIOVERSION ELECTIVE ARRHYTHMIA EXTERNAL Medical History Medical History Date Comments COPD (chronic obstructive pu lmonary disease) ([facility] V24, [facility] V28) 10/11/2018 DX:COPD (chronic o bstructive pulmonary disease) (HCC) Sarcoidosis of lung ([facility] V24) 10/11/2018 DX:Sarcoidosis of lung (HCC) Pulmonary nodule 10/11/2018 DX:Pulmonary no dule; COMMENT: RUL-05/30/18 S/p VATS & wedge resection-no malignancy Bipolar disorder ([facility] V2 4, [facility] V28) 10/11/2018 DX:Bipolar disorder (HCC) Hypertension 10/11/2018 DX:Hypertension Hyperlipidemia 10/11/2018 DX:Hyperlipidemi a SHARON (acute kidney injury) ([facility] V24) DX:SHARON (acute kidney injury) (HCC) Atrial fibrillation (CMS/HCC V24, [facility] V28) DX:Atrial fibrillation (HCC) Renal disease DX:Renal disease Leukocytosis DX:Leukocytosis [place] nephropathy DX:[place] n ephropathy Mediastinal lymphadenopathy DX:M ediastinal lymphadenopathy Necrotizing granulomatous inflammation of lung ([facility] V24, [facility] V28) DX:Necrotizing granulomatous inflammation of lung (HCC) [...] 8:45 AM EDT Office Visit Pulmonolgy - [place] [address] [facility] [address] [place] [phone] Sarah Breaux MD [address] [facility] [address] [place] [address] Health Maintenance Due Date Last Done Comments [...] CONTRAST Routine 06/11/2024 1 :[address] LUNG SCREENING LOW DOSE Routine 06/13/2023 3:45 PM EDT Encounter for screening for malignant neoplasm of respiratory organs from Last 3 Months or Most Recently Relevant to Health Maintenance Results * CT Chest w Contrast (06/11/2024 1:19 PM EDT) Anatomical Region Laterality Modality Body Computed Tomogra phy us Historical Provider MD MONTANEZ CT PROCEDURES Final R esult * CT LUNG SCREENING LOW DOSE (06/13/2023 3:45 PM EDT) Anatomical Region Laterality Modality Computed Tomogra phy 06/12/2023 11:3 6 AM EDT Narrative 06/13/2023 3:[address] [facility] Diagnostic Imaging Department [address] [place] [id number] Patient: ??NIKKI HURTADO ?/Age/Sex: 1945 - 77 - F Unit#: ??[id number] ? Location/Status: ??SPDICATLS/REG CLI ? Mnemonic/Ordering Site: [...] by: ??EDGARD TORRES MD Dic Date/Time: ??06/13/23 6439 Sign date/Time: ??06/13/23 7201 Procedure Note Edgard Torres MD - 10/09/2023 [facility] Diagnostic Imaging Department [address] [place] [address] Patient: NIKKI HURTADO Jory /Age/Sex: 1945 - 77 - F Unit#: [id number] Location/Status: [facility] Mnemonic/Ordering Site: [facility] Ordering Physician: JOHANNA SU MD CT [...] is advised in one year. Dictating Physician: EDGADR TORRES MD Electronically Signed by: EDGARD TORRES MD Dic Date/Time: 06/13/23 1514 Sign date/Time: 06/13/23 1545 Johanna Su MD IMG CT PROCEDURES Final Result from Last 3 Months or Most Recently Relevant to Health Maintenance Insurance MEDICARE MEDICAID - [place] Care Teams Denial Resolution Specialist Relationship Specialty Start Date End Date Juan Jose Ellington NP [address] [place], [place] PCP - General 06/26/18
[2024-08-06 13:17] LABS: Appearance Urine Turbid; Color Urine Yellow; Glucose Urine UA Negative (Negative); Leukocyte Esterase Urine Large (3+) (Negative); Nitrite Urine Negative (Negative); UMIC TRIGGER UACC YES; Urine Blood Large (3+) (Negative); Urine Ketones Negative (Negative); Urine Protein 30 (1+) mg/dL (Neg-Trace)
[2024-08-06 13:29] LABS: Bacteria Urine 4+ (None Seen); UACC Culture Trigger YES; WBC Urine >50 /HPF (0-5)
== END 2024-08-06 09:41 | disposition home or self-care (01) ==
LOC: HO.HMGCLNP 09:40
PROVIDERS: PCP Nurse Practitioner Family; Visit Provider Nurse Practitioner Family
DX: R30.0 Dysuria (principal)
CPT/HCPCS: 81001; 87086

== ENCOUNTER 2024-08-16 15:33 | Outpatient (AMB) | payer MEDICARE, MEDICAID, SELFPAY ==
[2024-08-16 16:00] VITALS: BP 120/56; PULSE 60; O2SAT 91; BMI 36.3
--- NOTE | 2024-08-16 16:00 | HO.NEPHOV_ITS ---
Vital Signs 08/16/24 16:00 Height 5 ft 1 in Weight 192 lb 4 oz BMI 36.3 BP 120/56 L Blood Pressure Location Rt brachial Position Sitting Pulse 60 Pulse Source Pulse Oximeter Pulse Oximetry (%) 91 L Oxygen Delivery Method Room Air Intake Visit Reasons: 3 MO FU-Conf w/daughter Php Wordpress Developer Required: No Allergies Sulfa (Sulfonamide Antibiotics) (SULFA (SULFONAMIDE ANTIBIOTICS)) Allergy (Severe, Verified 08/16/24 16:02) RASH, Anaphylaxis Do you need a note to return to daycare/school/sports/work: No HPI Comments Details: 78 years old lady with PMH of HFpE on lasix 20 mg MWF, mitral stenosis, CKD 4 with recent H/O acute hypoxic respiratory failure with sepsis secondary to bibasilar pneumonia, COPD exacerbation and heart failure with preserved ejection fraction was seen today in follow up for her CKD. Her creatinine has been close to baseline. She has been having recurrent UTI and has not had a cystoscopy. She is known to have right renal cysts. She was accompanied by her daughter. [facility] Medical History Paroxysmal atrial fibrillation Emphysema of lung Tardive dyskinesia Coarse tremors Hypersomnia Snoring SHARON (acute kidney injury) Mediastinal lymphadenopathy Atrial fibrillation Dyslipidemia Kidney disease Leukocytosis Necrotizing granulomatous inflammation of lung Bipolar 1 disorder Vitamin D deficiency COPD (chronic obstructive pulmonary disease) Sarcoidosis HTN (hypertension) [place] nephropathy Surgical History History of cardioversion History of bronchoscopy Family History Child No Financial Resp No problems noted. 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 Current occupational exposures/hazards: No Cognitive needs: No Hearing needs: No Vision needs: Yes Review of Systems Const All systems reviewed & are unremarkable except as noted in HPI and below Physical Exam Vital Signs: Last Vital Signs Pulse 60 08/16/24 16:00 BP 120/56 L 08/16/24 16:00 Pulse Ox 91 L 08/16/24 16:00 Oxygen Delivery Method Room Air 08/16/24 16:00 BMI result Body Mass Index 36.3 Const General: comfortable and no acute distress Orientation/consciousness: patient oriented x3 HEENT Head: Yes normocephalic Mouth: Normal oral and palatal mucosa present Eyes EOM: EOMs intact bilaterally Neck Neck: Yes supple Resp Auscultation: clear to auscultation bilaterally Cardio Jugular venous distension: no JVD Rate: regular rate GI Palpation (GI): Soft to palpation Auscultation: normal bowel sounds General: Yes no CVA tenderness Back/Spine/Pelvis Back: no CVA tenderness Skin General skin exam: no rashes or lesions noted Neuro General: patient oriented x3 and moves all extremities Extrem General: Yes no pedal edema Results Reviewed Nephrology Results: Hgb, (12.0-16.0) 11.8 g/dl L 08/03/24 WBC, (4.8-10.8) 7.2 X10*3/uL 08/03/24 Plt Count, (160-400) 207 X10*3/uL Δ 08/03/24 Sodium, (135-145) 143 mmol/L 08/03/24 Potassium, (3.3-5.1) 4.4 mmol/L 08/03/24 Chloride, (96-108) 106 mmol/L 08/03/24 Carbon Dioxide, (22-29) 28 mmol/L 08/03/24 BUN, (9-16) 34 mg/dL H 08/03/24 Creatinine, (0.5-1.4) 2.17 mg/dL H 08/03/24 Calcium, (8.4-10.2) 9.6 mg/dL 08/03/24 PTH Intact, (8.7-77.1) 158.3 pg/mL H 08/03/24 Urine Protein, (Neg-Trace) 30 (1+) mg/dL H 08/06/24 Assessment & Plan Assessment & Plan (1) Recurrent UTI: Code(s): N39.0 - Urinary tract infection, site not specified Category: Medical (2) CKD (chronic kidney disease) stage 4, GFR 15-29 ml/min: Code(s): N18.4 - Chronic kidney disease, stage 4 (severe) Category: Medical (3) Renal cyst: Code(s): N28.1 - Cyst of kidney, acquired Category: Medical Plan Has baseline CKD 3 B. Has H/O SHARON on CKD 4 due to compromise in renal perfusion with resultant tubular injury which has resolved. Urine output good. Serum creatinine close to baseline; Volume status optimal. Not close to renal replacement. Needs Urology consult, cystoscopy and F/U for recurrent UTI's( ordered). C/W rest of current management for now; Labs/FU; All questions answered Orders: Orders Complete Blood Count Auto Diff 3 Months N18.4 - Chronic kidney disease, stage 4 (severe) Blood Urea Nitrogen 3 Months N18.4 - Chronic kidney disease, stage 4 (severe) Electrolytes 3 Months N18.4 - Chronic kidney disease, stage 4 (severe) Calcium 3 Months N18.4 - Chronic kidney disease, stage 4 (severe) Phosphorus 3 Months N18.4 - Chronic kidney disease, stage 4 (severe) Parathyroid Hormone Intact 3 Months N18.4 - Chronic kidney disease, stage 4 (severe) Vitamin D 25-OH Total 3 Months N18.4 - Chronic kidney disease, stage 4 (severe) Creatinine 3 Months N18.4 - Chronic kidney disease, stage 4 (severe) Hemoglobin A1c 3 Months N18.4 - Chronic kidney disease, stage 4 (severe) Referrals Urology Referral N39.0 - Urinary tract infection, site not specified Coding Level of Care Code Est Pt Level 4 (64686) Diagnoses Recurrent UTI N39.0 CKD (chronic kidney disease) stage 4, GFR 15-29 ml/min N18.4 Renal cyst N28.1
== END 2024-08-16 16:20 | disposition home or self-care (01) ==
LOC: HO.HKA 15:34
PROVIDERS: PCP Nurse Practitioner Family; Visit Provider Internal Medicine Nephrology
DX: N39.0 Urinary tract infection, site not specified (principal); N18.4 Chronic kidney disease, stage 4 (severe); N28.1 Cyst of kidney, acquired
CPT/HCPCS: 99214

== ENCOUNTER → 2024-08-16 15:33 | Outpatient (BNVA) | payer MEDICARE, MEDICAID, SELFPAY | PROVIDERS: PCP Nurse Practitioner Family; Visit Provider Internal Medicine Nephrology | DX: N18.4 Chronic kidney disease, stage 4 (severe) (principal); N39.0 Urinary tract infection, site not specified; N28.1 Cyst of kidney, acquired | CPT/HCPCS: 99212 ==

== ENCOUNTER 2024-08-30 13:31 | Outpatient (REF) | payer MEDICARE, MEDICAID, SELFPAY | END 2024-08-30 13:32 | disposition home or self-care (01) | LOC: HO.LAB 13:31 | PROVIDERS: PCP Nurse Practitioner Family; Visit Provider Urology | DX: R31.29 Other microscopic hematuria (principal); N39.0 Urinary tract infection, site not specified; Z13.9 Encounter for screening, unspecified | CPT/HCPCS: 51798; 81003; 87086; 87088; 87186; 88112; 99202 ==

== ENCOUNTER 2024-08-30 13:31 | Outpatient (AMB) | payer MEDICARE, MEDICAID, SELFPAY ==
--- OUTSIDE RECORDS SUMMARY | 2024-08-30 13:34 | XMS_ITS | Clinical Summary ---
Author Organization [facility] Address [address] [place] [address] Phone Care Team Providers Care Watch Dial Stoner Name Role Phone Juan Jose Ellington NP [...] Ventolin HFA 90 mcg/actuation inhalerIndicati ons:Emphysema, unspecified ([facility] V24, [facility] V28) INHALE 2 PUFFS INTO [...] obstructive pulmonary disease, unspecified COPD type ([facility] V24, [facility] V28) Take 3 mL (2.5 mg total) by nebulization every 6 (six) hours if needed for wheezing. 300 mL 2 5 026 Active predniSONE (DELTASONE) 20 mg tablet 2 tab po qd x 1 and then 1 tab po qd x 6 days 8 each 5 Active predniSONE (DELTASONE) 20 mg tablet Take 1 tablet (20 mg total) by mouth 1 (one) time each day for 7 days. 7 each 5 025 Active Problems Problem Noted Date Diagnosed Date Bipolar disorder ([facility] V24, [facility] V28) 09/21 COPD (chronic obstructive pu lmonary disease) ([facility] V24, [facility] V28) 10/11/2018 Hyperlipidemia 10/11/2018 Hypertension 10/11/2018 Pulmonary nodule 10/11/2018 Overview (04/12/2024): RUL-05/30/18 S/p VATS & wedge resection-no malignancy Sarcoidosis of lung ([facility] V24) 10/11/2018 Encounters Date Type Department Care Team Description 08/09/2024 8:45 AM EDT Office Visit Pulmonolgy - [address] [address] Sarah Breaux MD Chronic obstructive pulmonary disease, unspecified COPD type ([facility] V24, [facility] V28) (Primary Dx); Sarcoidosis of lung ([facility] V24); Pulmonary nodule; Hypoxemia 07/19/[address] [place] [address] Sarah Breaux MD Medication Problem [facility] [address] [place] [address] Sarah Breaux MD durable medical equipment [facility] [address] [facility] [address] [place] [address] Sarah Breaux MD dme request from Last 3 Months Immunizations Name Administration Dates Next Due Moderna SARS-CoV-2 COVID-19, mRNA, LNP-S, preservative free 05/30/2020,05/02/2020 Surgical History Surgery Date Site/Laterality Comments OTHER SURGICAL HISTORY 04/27/2018 Right PROCEDURE: MD BRNCHSC INCL FLUOR GDNCE DX W/CELL WASHG SPX; COMMENT: negative malignancy TUBAL LIGATION PROCEDURE: HISTORICAL TUBAL LIGATION OTHER SURGICAL HISTORY 05/30/2018 Right PROCEDURE: MD BRONCHOSCOPY W/CPTR-ASST IMAGE-GUIDED NAVIGATION; COMMENT: da Arthur/VATS RUL wedge resection w/extensive pneumolysis OTHER SURGICAL HISTORY PROCEDURE: MD CARDIOVERSION ELECTIVE ARRHYTHMIA EXTERNAL Medical History Medical History Date Comments COPD (chronic obstructive pu lmonary disease) ([facility] V24, [facility] V28) 10/11/2018 DX:COPD (chronic o bstructive pulmonary disease) ([facility]) Sarcoidosis of lung ([facility] V24) 10/11/2018 DX:Sarcoidosis of lung (HCC) Pulmonary nodule 10/11/2018 DX:Pulmonary no dule; COMMENT: RUL-05/30/18 S/p VATS & wedge resection-no malignancy Bipolar disorder ([facility] V2 4, [facility] V28) 10/11/2018 DX:Bipolar disorder (HCC) Hypertension 10/11/2018 DX:Hypertension Hyperlipidemia 10/11/2018 DX:Hyperlipidemi a SHARON (acute kidney injury) ([facility] V24) DX:SHARON (acute kidney injury) (HCC) Atrial fibrillation ([facility] V24, [facility] V28) DX:Atrial fibrillation (HCC) Renal disease DX:Renal disease Leukocytosis DX:Leukocytosis [place] nephropathy DX:[place] n ephropathy Mediastinal lymphadenopathy DX:M ediastinal lymphadenopathy [...] Sign Reading Time Taken Comments Blood Pressure 130/68 08/09/2024 8:46 AM EDT Pulse 61 08/09/2024 8:46 AM EDT Temperature 36.1 C (97 F) 08/09/2024 8:46 AM EDT Respiratory Rate 20 08/09/2024 8:46 AM EDT Oxygen Saturation 93% 08/09/2024 8:46 AM EDT Inhaled Oxygen Concentration - - Weight 85.7 kg (189 lb) 05/03/2024 9:08 AM EDT Height 154.9 cm (5' 1 ) 05/03/2024 9:08 AM EDT Body Mass Index 35.71 05/03/2024 9:08 AM EDT Plan of Treatment Upcoming Encounters Date Type Department Care Team (Late st Contact Info) Description 09/11/2024 11:00 AM EDT Appointment [facility] CT Scan [address] [place] [phone] 12/11/2024 9:00 AM EDT Office Visit Pulmonolgy - [place] [facility] [address] [place] [phone] Sarah Breaux MD [address] [facility] [address] [place] [address] Health Maintenance Due Date Last Done Comments [...] 2024 01/22/2024, 01/05/2022, 01/21/2021, Additional history exists Influenza Vaccine (#1) 2024 , 11/18/2021, 02/20/2021, Additional history exists Pneumococcal Vaccine: 50+ Years Completed 02/20/2021, 03/09/2016, 02/20/2015 RSV Immunization Adult Patients Completed 01/22/2024 HIB [...] AM EDT Narrative 06/13/2023 3:45 PM EDT [facility] Diagnostic Imaging Department [address] [place] [id number] Patient: GENESISNIKKI /Age/Sex: 1945 - 77 - F Unit#: [id number] [facility]ing [facility] Ordering Physician: MULUGETA SU MD CT Lung Screening Low Dose - 06/12/23 - 1143 Report Status:Signed PROCEDURE: CT chest lung cancer screening low dose examination. INDICATION: CT lung screening. TECHNIQUE: Chest CT without intravenous contrast was performed. Low-dose examination was performed. Reformatted images were evaluated. COMPARISON: CT chest May 2022. CT chest March 2018 FINDINGS: NODULES: A groundglass appearing nodule is noted in the right upper lobe not present previously measuring 15 x 13 mm (series 3 image 77). LUNGS: Minimal emphysematous changes. Suture line is again noted involving the base of the right upper lobe. Minimal linear atelectasis at the left lung base. Very small left-sided effusion. OTHER: Limited views of the upper abdomen appear normal. Stable appearance of mildly prominent but nonspecific mediastinal lymph nodes. Atherosclerotic disease of the aorta without aneurysm. Mild coronary atherosclerotic disease is noted. Minimal degenerative changes in the thoracic spine. IMPRESSION: 1. Emphysematous disease with new groundglass nodule in the right upper chest. 2. Linear atelectasis at the left lung base and small left-sided pleural effusion. Lung-RADS 2. Follow up examination is advised in one year. Dictating Physician: EDGARD TORRES MD Electronically Signed by: EDGARD TORRES MD Dic Date/Time: 06/13/23 1510 Sign date/Time: 06/13/23 154 Procedure Note Edgard Torres MD - 10/09/2023 [facility] Diagnostic Imaging Department [address] [place] [address] Patient: NIKKI HURTADO /Age/Sex: 1945 - 77 - F Unit#: [id number] Location/Status: [facility]ICATLS/REG CLI Mnemonic/Ordering Site: [facility] Ordering Physician: MULUGETA SU MD CT Lung [...] Relevant to Health Maintenance Insurance MEDICARE [place]ICAID [place] Care Teams Watch Dial Stoner Relationship Specialty Start Date End Date Juan Jose Ellington NP [address] [place], [place] PCP - General 06/26/18
--- OUTSIDE RECORDS SUMMARY | 2024-08-30 13:34 | XMS_ITS | Encounter Summary ---
Author Organization [facility] Address [address] [place] [address] Phone Care Team Providers Care Antique Furniture Restorer Name Role Phone Juan Jose Ellington ASSISTANT SPA MANAGER Primary Care Provider Encounter Details Date Type Department Care Team (Late Contact Info) Description 03/19/2024 Documentation Only [facility] [address] [place] [address] Tatyana Ritchie [address] [place] [address] Social History Tobacco Use Types [...] [facility] [address] [place] [address] Cortes Rowe MD [address] [place] [address] [place] [address] documented as of this encounter Visit Diagnoses Not on filedocumented in this encounter Care Teams Antique Furniture Restorer Relationship Specialty Start Date End Date Juan Jose Ellington NP [address] [place] [address] PCP - General 12/25/18 documented as of this encounter
--- OUTSIDE RECORDS SUMMARY | 2024-08-30 13:34 | XMS_ITS | Encounter Summary ---
Author Organization [facility] Address [address] [place] [address] Care Team Providers Care Culled Fruit Packer Name Role Phone Juan Jose Ellington NP Primary Care Provider Unavail able Kenneth Garza PA-C Unavailable [phone] Johanna Son MD Unavailable Reason for Visit * Reason Onset Date Comments Provider Call Back 04/29/2019 Encounter Details Date Type Department Care Team Description 04/29/2019 Telephone Pulmonology - [place] [facility] [address] [place] [phone] Sarah Breaux MD [address] [place] [address] Provider Call Back Social History [...] call back: Patient sister call and said [facility] said the last time she has a [...] on filedocumented in this encounter Care Teams Culled Fruit Packer Relationship Specialty Start Date End Date Juan Jose Ellington NP PCP - General Family Practice 06/26/18 Kenneth Garza PA-C [address] [address] Specialist Thoracic Surgery 06/01/22 Johanna Son MD [address] [address] Lung Cancer Design Eng 06/01/22 documented as of this encounter
--- NOTE | 2024-08-30 13:39 | MHC.OFFVIS ---
Intake Visit Reasons: recurrent UTIs Intake Note: New patient presents today for initial visit for recurrent UTI's Urology Medication:Cranberry Blood Thinner:Apixaban Antibiotic Allergies:Sulfa PVR:73ml Allergies Sulfa (Sulfonamide Antibiotics) (SULFA (SULFONAMIDE ANTIBIOTICS)) Allergy (Severe, Verified 08/30/24 13:40) RASH, Anaphylaxis Medication List - Last Reconciled 08/30/24 by Diane Hauser MD acetaminophen 325 mg PO QID PRN 7 days albuterol sulfate 90 mcg/actuation (Ventolin HFA) 2 puffs inhalation Q6H PRN amiodarone 100 mg (1/2 x 200 mg) PO DAILY 90 days apixaban (Eliquis) 5 mg PO BID cephalexin 250 mg PO Q8H 7 days cephalexin 250 mg PO DAILY 30 days cholecalciferol (vitamin D3) 50 mcg PO DAILY cranberry 1,000 mg PO DAILY [disposable bed pads As directed, uses 6 per day] [disposable gloves As directed, uses 8 per day to provide incontinence care] [disposable incontinence wipes As directed, uses 10 per day to provide incontinence care] [disposable pull up briefs As directed, uses 8 per day] vszutfxaddt-chikouwpc-lzcpgwrs 100-62.5-25 mcg (Trelegy Ellipta) 1 ea inhalation DAILY furosemide 20 mg PO DAILY hydroxyzine HCl 10 mg PO DAILY PRN lamotrigine 50 mg PO BEDTIME metoprolol succinate ER 50 mg (2 x 25 mg) PO DAILY olanzapine 7.5 mg PO BEDTIME prednisone 20 mg PO DAILY simvastatin 20 mg PO BEDTIME walker Standard walker, no wheels [washable bed pads As directed] [facility] Medical History Paroxysmal atrial fibrillation Emphysema of lung Tardive dyskinesia Coarse tremors Hypersomnia Snoring SHARON (acute kidney injury) Mediastinal lymphadenopathy Atrial fibrillation Dyslipidemia Kidney disease Leukocytosis Necrotizing granulomatous inflammation of lung Bipolar 1 disorder Vitamin D deficiency COPD (chronic obstructive pulmonary disease) Sarcoidosis HTN (hypertension) [place] nephropathy Surgical History History of cardioversion History of bronchoscopy Family History Child No Financial Resp No problems noted. 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 Current occupational exposures/hazards: No Cognitive needs: No Hearing needs: No Vision needs: Yes Office Procedures Post Void Residual Post Residual Void Post Void Residual (PVR): 73 [id number] Void Residual by ultrasound Results AMB Urinalysis, Automated UA Leukoctes 15 Sudheer/uL Last Edit by Shona Burnett on 08/30/24 17:15 UA Nitrite Negative Last Edit by Shona Burnett on 08/30/24 17:15 UA Urobilinogen 3.5 mg/dL Last Edit by Shona Burnett on 08/30/24 17:15 UA Protein 0 mg/dL Last Edit by Shona Burnett on 08/30/24 17:15 UA pH 6.0 Last Edit by Shona Burnett on 08/30/24 17:15 UA Blood 10 Bao/uL Last Edit by Shona Burnett on 08/30/24 17:15 UA Specific Dickinson 1.010 Last Edit by Shona Burnett on 08/30/24 17:15 UA Ketone Negative Last Edit by Shona Burnett on 08/30/24 17:15 UA Bilirubin 0 mg/dL Last Edit by Shona Burnett on 08/30/24 17:15 UA Glucose 0 mg/dL Last Edit by Shona Burnett on 08/30/24 17:15 Assessment & Plan Assessment & Plan Orders: Orders Urine Culture Today N39.0 - Urinary tract infection, site not specified, R31.29 - Other microscopic hematuria Urine Cytology Today N39.0 - Urinary tract infection, site not specified, R31.29 - Other microscopic hematuria AMB Urinalysis Automated Today Z13.9 - Encounter for screening, unspecified Medications: New cephalexin 250 mg PO Q8H 7 days 21 caps 0RF cephalexin After completing TID Keflex. Start Keflex 250 mg daily until completed 250 mg PO DAILY 30 days 30 caps 0RF Coding CPT Codes Post Residual Void - PVR CPT Code: 18742-Amyu Void Residual by ultrasound ([id number])
== END 2024-08-30 14:13 | disposition home or self-care (01) ==
LOC: HO.HUSH 13:32
PROVIDERS: PCP Nurse Practitioner Family; Visit Provider Urology
DX: Z13.9 Encounter for screening, unspecified (principal)

== ENCOUNTER 2024-09-04 15:34 | Outpatient (REF) | payer MEDICARE, MEDICAID, SELFPAY ==
--- NOTE | ~2024-09-04 | US_ITS ---
EXAMINATION: US THYROID HISTORY: R79.89 - Other specified abnormal findings of blood chemistry TECHNIQUE: Real-time grayscale ultrasound imaging was performed and images were reviewed. COMPARISON: There are no prior studies available for comparison. FINDINGS: SIZE: The right thyroid lobe measures 5.8 x 2.5 x 1.9 cm. The left thyroid lobe measures 5.2 x 2.8 x 1.5 cm. The isthmus measures 9 mm. FLOW: Flow to the gland is normal. ECHOGENICITY: The echotexture of the gland is homogeneous. NODULES: No nodules are identified. US/US thyroid IMPRESSION: Mild thyromegaly without evidence of discrete nodules. ACR TI-RADS Guidelines TR1 (0 points): Benign, No follow-up or biopsy required TR2 (2 points): Not Suspicious, No biopsy or follow up indicated TR3 (3 points): Mildly Suspicious, FNA if >= 2.5 cm, Follow if >= 1.5 cm TR4 (4-6 points): Moderately Suspicious, FNA if >= 1.5 cm, Follow if >= 1.0 cm TR5 (>=7 points): Highly Suspicious, FNA if >= 1.0 cm, Follow if >= 0.5 cm Electronically signed by: Torrey Santiago MD 09/05/2024 07:08 AM EDT
--- OUTSIDE RECORDS SUMMARY | 2024-09-04 15:43 | XMS_ITS | Encounter Summary ---
Author Organization [facility] Address [address] [place] [address] Phone Care Team Providers Care Dry Cleaning Attendant Name Role Phone Juan Jose Ellington OVER THE [address] DRIVER Primary Care Provider [phone] Encounter Details Date Type Department Care Team (Late Contact Info) Description 03/19/2024 Documentation Only [facility] [address] [place] [address] Tatyana Ritchie [address] [place] [address] Social History Tobacco Use Types [...] Visit [facility] [address] [place] [address] Cortes Rowe MD [address] [place] [address] [place] [address] documented as of this encounter Visit Diagnoses Not on filedocumented in this encounter Care Teams Dry Cleaning Attendant Relationship Specialty Start Date End Date Juan Jose Ellington NP [address] [facility] [place] [address] PCP - General 12/25/18 documented as of this encounter
--- OUTSIDE RECORDS SUMMARY | 2024-09-04 15:43 | XMS_ITS | Clinical Summary ---
Author Organization 175 [facility] Address [address] [place] [address] Phone Care Team Providers Care Paint Spray Inspector Name Role Phone Juan Jose Ellington NP [...] Ventolin HFA 90 mcg/actuation inhalerIndicati ons:Emphysema, unspecified ([facility] V24, [facility] V28) INHALE 2 PUFFS INTO THE LUNGS EVERY 4 HOURS NEEDED FOR COUGH OR WHEEZING FOR UP TO 30 DAYS. 18 each 11 5 Active Oxygen Therapy via Nasal Cannula (O2) gas Inhale 2 L/min by mouth continuously. via nasal canula on exertion 5 Active albuterol 2.5 mg /3 mL (0.083 %) nebulizer solutionIndicat ions:Chronic obstructive pulmonary disease, unspecified COPD type ([facility] V24, [facility] V28) Take 3 mL (2.5 [...] Problem Noted Date Diagnosed Date Bipolar disorder ([facility] V24, [facility] V28) 09/21 COPD (chronic obstructive pu lmonary disease) ([facility] V24, [facility] V28) 10/11/2018 Hyperlipidemia 10/11/2018 Hypertension 10/11/2018 Pulmonary nodule 10/11/2018 Overview (04/12/2024): RUL-05/30/18 S/p VATS & wedge resection-no malignancy Sarcoidosis of lung ([facility] V24) 10/11/2018 Encounters Date Type Department Care Team Description 08/09/2024 8:45 AM EDT Office Visit Pulmonolgy - [address] [address] Sarah Breaux MD Chronic obstructive pulmonary disease, unspecified COPD type ([facility] V24, [facility] V28) (Primary Dx); Sarcoidosis of lung ([facility] V24); Pulmonary nodule; Hypoxemia 07/19/[address] [place] [address] Sarah Breaux MD Medication Problem [facility] [address] [place] [address] Sarah Breaux MD durable medical equipment 06/06/2024 [facility] [address] [facility] [address] [place] [address] Sarah Breaux MD dme request from Last 3 Months Immunizations Name Administration Dates Next Due Moderna SARS-CoV-2 COVID-19, mRNA, LNP-S, preservative free 05/30/2020,05/02/2020 Surgical History Surgery Date Site/Laterality Comments OTHER SURGICAL HISTORY 04/27/2018 Right PROCEDURE: [place] BRNCHSC INCL FLUOR GDNCE DX W/CELL WASHG SPX; COMMENT: negative malignancy TUBAL LIGATION PROCEDURE: HISTORICAL TUBAL LIGATION OTHER SURGICAL HISTORY 05/30/2018 Right PROCEDURE: [place] BRONCHOSCOPY W/CPTR-ASST IMAGE-GUIDED NAVIGATION; COMMENT: da Arthur/VATS RUL wedge resection w/extensive pneumolysis OTHER SURGICAL HISTORY PROCEDURE: [place] CARDIOVERSION ELECTIVE ARRHYTHMIA EXTERNAL Medical History Medical History Date Comments COPD (chronic obstructive pu lmonary disease) ([facility] V24, [facility] V28) 10/11/2018 DX:COPD (chronic o bstructive pulmonary disease) ([facility]) Sarcoidosis of lung ([facility] V24) 10/11/2018 DX:Sarcoidosis of lung (HCC) Pulmonary nodule 10/11/2018 DX:Pulmonary no dule; COMMENT: RUL-05/30/18 S/p VATS & wedge resection-no malignancy Bipolar disorder ([facility] V2 4, [facility] V28) 10/11/2018 DX:Bipolar disorder (HCC) Hypertension 10/11/2018 DX:Hypertension Hyperlipidemia 10/11/2018 DX:Hyperlipidemi a SHARON (acute kidney injury) ([facility] V24) DX:SHARON (acute kidney injury) (HCC) Atrial fibrillation ([facility] V24, [facility] V28) DX:Atrial fibrillation (HCC) Renal disease DX:Renal disease Leukocytosis DX:Leukocytosis [place] nephropathy DX:[place] n ephropathy Mediastinal lymphadenopathy DX:M ediastinal lymphadenopathy [...] Info) Description 09/11/2024 11:00 AM EDT Appointment [facility] CT Scan [address] [place] [phone] 12/11/2024 9:00 AM EDT Office Visit Pulmonolgy - [place] [address] [facility] [address] [place] [phone] Sarah Breaux MD 175 [facility] [address] [place] [address] Health Maintenance Due Date Last Done Comments [...] EDT Narrative 06/13/2023 3:[address] [facility] Diagnostic Imaging Department [address] [place] [address] Patient: GENESISNIKKI /Age/Sex: 1945 - 77 - F Unit#: [id number] [facility] Mn[facility]onic/Ordering Site: [facility] Ordering Physician: MULUGETA SU MD CT Lung [...] by: EDGARD TORRES MD Dic Date/Time: 06/13/23 1513 Sign date/Time: 06/13/23 1548 Procedure Note Edgard Torres MD - 10/09/2023 [facility] Diagnostic Imaging Department [address] [place] [address] Patient: NIKKI HURTADO /Age/Sex: 1945 - 77 - F Unit#: [id number] Location/Status: SPDICATLS/REG CLI Mnemonic/Ordering Site: [facility] Ordering Physician: MULUGETA SU MD CT Lung [...] Insurance MEDICARE [place]ICAID [place] Care Teams Paint Spray Inspector Relationship Specialty Start Date End Date Juan Jose Ellington NP [address] [place], [place] PCP - General 06/26/18
== END 2024-09-04 15:35 | disposition home or self-care (01) ==
LOC: HO.HMGCX 15:34
PROVIDERS: PCP Nurse Practitioner Family; Visit Provider Nurse Practitioner Family
DX: R79.89 Other specified abnormal findings of blood chemistry (principal)
CPT/HCPCS: 76536

== ENCOUNTER → 2024-09-04 15:38 | Outpatient (BNV) | payer MEDICARE, MEDICAID, SELFPAY | PROVIDERS: PCP Nurse Practitioner Family; Visit Provider Radiology Diagnostic Radiology | DX: R79.89 Other specified abnormal findings of blood chemistry (principal) | CPT/HCPCS: 76536 ==

== ENCOUNTER 2024-09-19 11:50 | Outpatient (REF) | payer MEDICARE, MEDICAID, SELFPAY ==
--- OUTSIDE RECORDS SUMMARY | 2024-09-19 12:38 | XMS_ITS | Encounter Summary ---
Author Organization [facility] Address [address] [place] [address] Care Team Providers Care Epoxy Specialist Name Role Phone Juan Jose Ellington NP Primary Care Provider Unavail able Kenneth Garza PA-C Unavailable [phone] Johanna Son MD Unavailable Reason for Visit * Reason Onset Date Comments Provider Call Back 04/29/2019 Encounter Details Date Type Department Care Team Description 04/29/2019 Telephone Pulmonology - [place] 175 [facility] [address] [place] [address] Sarah Breaux MD [address] [place] [address] Provider Call Back Social History [...] call back: Patient sister call and said [facility] said the last time she has [...] on filedocumented in this encounter Care Teams Epoxy Specialist Relationship Specialty Start Date End Date Juan Jose lElington NP PCP - General Family Practice 06/26/18 Kenneth Garza PA-C [address] [address] Specialist Thoracic Surgery 06/01/22 Johanna Son MD [address] [address] Lung Cancer Chrome Tanning Drum Operator 06/01/22 documented as of this encounter
--- OUTSIDE RECORDS SUMMARY | 2024-09-19 12:38 | XMS_ITS | Encounter Summary ---
Author Organization [facility] Address [address] [place] [address] Phone Care Team Providers Care Placement Specialist Name Role Phone Juan Jose Ellington MANAGER ADULT Primary Care Provider [phone] Encounter Details Date Type Department Care Team (Late Contact Info) Description 09/18/2024 Documentation Only [facility] [address] [place] [address] Tatyana Ritchie [address] [place] [address] Social History Tobacco Use Types [...] Visit [facility] [address] [place] [address] Cortes Rowe MD [address] [place] [address] [place] [address] documented as of this encounter Visit Diagnoses Not on filedocumented in this encounter Care Teams Placement Specialist Relationship Specialty Start Date End Date Juan Jose Ellington NP [address] [facility] [place] [address] PCP - General 12/25/18 documented as of this encounter
--- OUTSIDE RECORDS SUMMARY | 2024-09-19 12:38 | XMS_ITS | Clinical Summary ---
Author Organization 175 [facility] Address [address] [place] [address] Phone Care Team Providers Care Cleaner Housekeeping Name Role Phone Juan Jose Ellington NP Primary Care Provider [phone] Allergies Active Allergy Reactions Criticality Noted Date [...] Ventolin HFA 90 mcg/actuation inhalerIndicati ons:Emphysema, unspecified ([facility] V24, [facility] V28) INHALE 2 PUFFS INTO THE LUNGS EVERY 4 HOURS NEEDED FOR COUGH OR WHEEZING FOR UP TO 30 DAYS. 18 each 5 Active Oxygen Therapy via Nasal Cannula (O2) gas Inhale 2 L/min by mouth continuously. via nasal canula on exertion 5 Active albuterol 2.5 mg /3 mL (0.083 %) nebulizer solutionIndicat ions:Chronic obstructive pulmonary disease, unspecified COPD type ([facility] V24, [facility] V28) Take 3 mL (2.5 mg total) by nebulization every 6 (six) hours if needed for wheezing. 300 mL 2 5 05/04/19 26 Active predniSONE (DELTASONE) 20 mg tablet 2 tab po qd x 1 and then 1 tab po qd x 6 days 8 each 5 Active Active Problems Problem Noted Date Diagnosed Date Bipolar disorder ([facility] V24, [facility] V28) 09/21 COPD (chronic obstructive pu lmonary disease) ([facility] V24, [facility] V28) 10/11/2018 Hyperlipidemia 10/11/2018 Hypertension 10/11/2018 Pulmonary nodule 10/11/2018 Overview (04/12/2024): RUL-05/30/18 S/p VATS & wedge resection-no malignancy Sarcoidosis of lung ([facility] V24) 10/11/2018 Encounters Date Type Department Care Team Description 09/11/2024 10:47 AM EDT - 09/11/2024 11:59 PM EDT Hospital Encounter [facility] CT Scan [address] [place] [phone] Pulmonary nodule Discharge Disposition: Home or Self Care 08/09/2024 8:45 AM EDT Office Visit Pulmonolgy - [place] 175 [facility] [address] [place] [phone] Sarah Breaux MD Chronic obstructive pulmonary disease, unspecified COPD type ([facility] V24, [facility] V28) (Primary Dx); Sarcoidosis of lung ([facility] V24); Pulmonary nodule; Hypoxemia 07/19/2024 Telephone Pulmonolgy - [place] 175 [facility] [address] [place] [address] Sarah Breaux MD Medication Problem from Last 3 Months Immunizations Name Administration Dates Next Due Moderna SARS-CoV-2 COVID-19, mRNA, LNP-S, preservative free 05/30/2020,05/02/2020 Surgical History Surgery Date Site/Laterality Comments OTHER SURGICAL HISTORY 04/27/2018 Right PROCEDURE: [place] BRNCHSC INCL FLUOR GDNCE DX W/CELL WASHG SPX; COMMENT: negative malignancy TUBAL LIGATION PROCEDURE: HISTORICAL TUBAL LIGATION OTHER SURGICAL HISTORY 05/30/2018 Right PROCEDURE: [place] BRONCHOSCOPY W/CPTR-ASST IMAGE-GUIDED NAVIGATION; COMMENT: da Arthur/VATS RUL wedge resection w/extensive pneumolysis OTHER SURGICAL HISTORY PROCEDURE: [place] CARDIOVERSION ELECTIVE ARRHYTHMIA EXTERNAL Medical History Medical History Date Comments COPD (chronic obstructive pu lmonary disease) ([facility] V24, [facility] V28) 10/11/2018 DX:COPD (chronic o bstructive pulmonary disease) (HCC) Sarcoidosis of lung ([facility] V24) 10/11/2018 DX:Sarcoidosis of lung (HCC) Pulmonary nodule 10/11/2018 DX:Pulmonary no dule; COMMENT: RUL-05/30/18 S/p VATS & wedge resection-no malignancy Bipolar disorder ([facility] V2 4, [facility] V28) 10/11/2018 DX:Bipolar disorder (HCC) Hypertension 10/11/2018 DX:Hypertension Hyperlipidemia 10/11/2018 DX:Hyperlipidemi a SHARON (acute kidney injury) ([place] V24) DX:SHARON (acute kidney injury) (HCC) Atrial fibrillation ([facility] V24, [facility] V28) DX:Atrial fibrillation (HCC) Renal disease DX:Renal disease Leukocytosis DX:Leukocytosis [place] nephropathy DX:[place] n ephropathy Mediastinal lymphadenopathy DX:M ediastinal lymphadenopathy Necrotizing granulomatous inflammation of lung ([facility] V24, [facility] V28) DX:Necrotizing granulomatous inflammation of lung (HCC) [...] Care Team (Late st Contact Info) Description 12/11/2024 9:00 AM EDT Office Visit Pulmonolgy - [place] 175 [facility] [address] [place] [phone] Sarah Breaux MD 175 [facility] [place] [address] [place] [address] Health Maintenance Due Date Last Done Comments DTaP,Tdap,and Td Vaccines (1 - Tdap) 1964 Zoster Vaccines (1 of 2) 11/12/1995 Cholesterol Screening (Lipid Panel) 01/23/2022 Falls Risk Assessment 01/23/2022 Hepatitis C Screening 01/23/2022 Medicare Annual Wellness Visit 01/23/2022 Osteoporosis Screening (Bone Density Screening) 01/23/2022 Social Influencers of Health Screening 01/23/2022 Hypertension/CHF/CAD Annual BMP Blood Test 02/02/2022 Depression Screening 02/21/2024 Lung Cancer Screening (Low Dose CT) 06/12/2024 [...] Priority Date/Time Associated Diagnosis Comments CT CHEST WO CONTRAST Routine 09/11/2024 10:55 AM EDT Pulmonary nodule CT LUNG SCREENING LOW DOSE Routine 06/13/2023 3:45 PM EDT Encounter for screening for malignant neoplasm of respiratory organs from Last 3 Months or Most Recently Relevant to Health Maintenance Results * CT Chest wo Contrast (09/11/2024 10:55 AM EDT) Anatomical Region Laterality Modality Body Computed Tomogra phy 09/13/2024 3:29 PM EDT Impressions 09/13/2024 3:50 PM EDT 1. Stable postsurgical changes of a wedge resection in the inferior right upper lobe. 2. A groundglass right upper lobe nodule seen on the 06/12/2023 comparison study has resolved and was likely inflammatory. 3. Scattered new patchy groundglass and centrilobular groundglass nodules in the right lung suggestive of a low-grade small airways infectious or inflammatory process. New irregular area of peripheral consolidation in the posterior right lower lobe which is also suspected to be inflammatory. -------- FINAL REPORT -------- Dictated By: Felix Vallejo Dictated Date: 09/13/2024 15:29 ET Assigned Physician: Felix Vallejo Reviewed and Electronically Signed By: Felix Vallejo Signed Date: 09/13/2024 15:50 ET Workstation ID: [id number] Transcribed By: Self Edit Transcribed Date: 09/13/2024 15:48 ET Narrative 09/13/2024 3:50 PM EDT PROCEDURE: CT of the chest without intravenous contrast. TECHNIQUE: CT of the chest without intravenous contrast administration. Coronal and sagittal reformats and MIP reconstructions were created. Dose length product: 226 mGy-cm. HISTORY: Lung nodule, > 8mm COMPARISON: 06/10/2023. FINDINGS: LUNGS/PLEURA: The central airways are clear and normal in caliber. Mild biapical pleural-parenchymal scarring. Mild-moderate centrilobular emphysema. Stable postsurgical changes of a wedge resection in the anterolateral inferior right upper lobe. A groundglass nodule in the right upper lobe noted on the 06/13/2023 study has resolved. Irregular peripheral parenchymal scarring in the anterolateral right lower lobe and inferolateral right middle lobe is slightly more extensive than on the previous study. There is a new irregular 2.2 x 0.9 area of juxtapleural consolidation in the posterior right lower lobe, series 3 image 143. New linear and groundglass opacity with mild centrilobular nodularity in the inferior right upper lobe (series 3, image 97). New small centrilobular and tree-in-bud nodules in the superior segment of the right lower lobe. Thin curvilinear bandlike opacity in the left lower lobe. This is thinner along its lateral margin on the previous study, likely an area of scarring with improved associated atelectasis. Slightly improved atelectasis/scarring in the inferior lingula. New small linear opacity in the periphery of the left lower lobe, series 3 image 145. Scattered bilateral calcified granulomas. No pleural effusion or pneumothorax. MEDIASTINUM/DEIDRE: No mediastinal mass or lymphadenopathy. No appreciable hilar lymphadenopathy on limited noncontrast evaluation. VASCULATURE: Normal caliber pulmonary arteries. Severe atherosclerotic calcifications of the aorta and great vessels. CARDIAC: Heart is mildly enlarged. Moderate aortic annular, severe mitral annular, and mild coronary artery calcification. CHEST WALL: No axillary or supraclavicular lymphadenopathy. LIMITED ABDOMEN: Partially visible cyst exophytic from the upper pole of the right kidney. BONES: Demineralized. Mild degenerative changes of the spine. Procedure Note Felix Vallejo MD - 09/13/2024 PROCEDURE: CT of the chest without intravenous contrast. TECHNIQUE: CT of the chest without intravenous contrast administration.Coronal and sagittal reformats and MIP reconstructions were created. Dose length product: 226 mGy-cm. HISTORY: Lung nodule, > 8mm COMPARISON: 06/10/2023. FINDINGS: LUNGS/PLEURA: The central airways are clear and normal in caliber. Mildbiapical pleural-parenchymal scarring. Mild-moderate centrilobularemphysema. Stable postsurgical changes of a wedge resection in the anterolateralinferior right upper lobe. A groundglass nodule in the right upper lobenoted on the 06/13/2023 study has resolved. Irregular peripheralparenchymal scarring in the anterolateral right lower lobe andinferolateral right middle lobe is slightly more extensive than on theprevious study. There is a new irregular 2.2 x 0.9 area of juxtapleuralconsolidation in the posterior right lower lobe, series 3 image 143. Newlinear and groundglass opacity with mild centrilobular nodularity in theinferior right upper lobe (series 3, image 97). New small centrilobularand tree-in-bud nodules in the superior segment of the right lower lobe. Thin curvilinear bandlike opacity in the left lower lobe. This is thinneralong its lateral margin on the previous study, likely an area of scarringwith improved associated atelectasis. Slightly improvedatelectasis/scarring in the inferior lingula. New small linear opacity inthe periphery of the left lower lobe, series 3 image 145. Scattered bilateral calcified granulomas. No pleural effusion orpneumothorax. MEDIASTINUM/DEIDRE: No mediastinal mass or lymphadenopathy. No appreciablehilar lymphadenopathy on limited noncontrast evaluation. VASCULATURE: Normal caliber pulmonary arteries. Severe atheroscleroticcalcifications of the aorta and great vessels. CARDIAC: Heart is mildly enlarged. Moderate aortic annular, severe mitralannular, and mild coronary artery calcification. CHEST WALL: No axillary or supraclavicular lymphadenopathy. LIMITED ABDOMEN: Partially visible cyst exophytic from the upper pole ofthe right kidney. BONES: Demineralized. Mild degenerative changes of the spine. IMPRESSION: 1. Stable postsurgical changes of a wedge resection in the inferior rightupper lobe. 2. A groundglass right upper lobe nodule seen on the 06/12/2023omparison study has resolved and was likely inflammatory. 3. Scattered new patchy groundglass and centrilobular groundglass nodulesin the right lung suggestive of a low-grade small airways infectious orinflammatory process. New irregular area of peripheral consolidation inthe posterior right lower lobe which is also suspected to beinflammatory. -------- FINAL REPORT -------- Dictated By: Felix Vallejo Dictated Date: 09/13/2024 15:29 ET Assigned Physician: Felix Vallejo Reviewed and Electronically Signed By: Felix Vallejo Signed Date: 09/13/2024 15:50 ET Workstation ID: [id number] Transcribed By: Self Edit Transcribed Date: 09/13/2024 15:48 ET us Sarah Breaux MD IMG CT PROCEDURES Final Result * CT LUNG SCREENING LOW DOSE (06/13/2023 3:45 PM EDT) Anatomical Region Laterality Modality Computed Tomogra phy 06/12/2023 11:3 6 AM EDT Narrative 06/13/2023 3:45 PM EDT [facility] Diagnostic Imaging Department [address] [place] [address] Patient: NIKKI HURTADO Jory /Age/Sex: 1945 - 77 - F Unit#: [id number] Location/Status: SPDICATLS/REG CLI Mnemonic/[facility] Order[facility] Physician: JOHANNA SU MD CT Lung [...] Date/Time: 06/13/23 1514 Sign date/Time: 06/13/23 1545 Procedure Note Edgard Torres MD - 10/09/2023 [facility] Diagnostic Imaging Department [address] [place] [address] Patient: NIKKI HURTADO Jory /Age/Sex: 1945 - 77 - F Unit#: [id number] Location/Status: [facility] CLI Mnemonic/Ordering Site: [facility] Ordering Physician: JOHANNA SU MD CT [...] Insurance MEDICARE MEDICAID - [place] Care Teams Cleaner Housekeeping Relationship Specialty Start Date End Date Juan Jose Ellington NP [address] [place], [place] PCP - General 06/26/18
[2024-09-19 13:23] LABS: Appearance Urine Turbid; Glucose Urine UA Negative (Negative); PH 6.0 (5.0-9.0); Specific Gravity - Urine 1.010 (1.005-1.025); UMIC TRIGGER UACC YES
[2024-09-19 13:32] LABS: UACC Culture Trigger YES
== END 2024-09-19 11:51 | disposition home or self-care (01) ==
LOC: HO.HMGCLNP 11:50
PROVIDERS: PCP Nurse Practitioner Family; Visit Provider Nurse Practitioner Family
DX: R30.0 Dysuria (principal)
CPT/HCPCS: 81001; 87086; 87088; 87186

== ENCOUNTER → 2024-10-13 23:59 | Outpatient (BNV) | payer MEDICARE, MEDICAID, SELFPAY | PROVIDERS: PCP Nurse Practitioner Family; Visit Provider Nurse Practitioner Family | DX: I13.0 Hypertensive heart and chronic kidney disease with heart failure and stage 1 through stage 4 chronic kidney disease, or unspecified chronic kidney disease (principal); I50.32 Chronic diastolic (congestive) heart failure; N18.4 Chronic kidney disease, stage 4 (severe) | CPT/HCPCS: G0179 ==

== ENCOUNTER 2024-10-25 11:33 | Outpatient (REF) | payer MEDICARE, SELFPAY ==
--- OUTSIDE RECORDS SUMMARY | 2024-10-25 12:31 | XMS_ITS | Encounter Summary ---
Author Organization [facility] Address [address] [place] [address] Phone Care Team Providers Care Pacs Administrator Name Role Phone Juan Jose Ellington CIRCUIT BOARD ASSEMBLER Primary Care Provider [phone] Encounter Details Date Type Department Care Team (Late st Contact Info) Description 03/26/2024 Documentation Only [facility] [place], [address] [place] [address] Tatyana Ritchie [address] [place] [address] Social History Tobacco Use Types [...] on filedocumented in this encounter Care Teams Pacs Administrator Relationship Specialty Start Date End Date Juan Jose Ellington NP [address] [facility] [place] [address] PCP - General 12/25/18 documented as of this encounter
--- OUTSIDE RECORDS SUMMARY | 2024-10-25 12:31 | XMS_ITS | Encounter Summary ---
Author Organization [facility] Address [address] [place] [address] Phone Care Team Providers Care Manager In Training Name Role Phone Juan Jose Ellington RIG SUPERINTENDENT Primary Care Provider [phone] Encounter Details Date Type Department Care Team (Late st Contact Info) Description 09/18/2024 Documentation Only [facility] [place], [address] [place] [address] Tatyana Ritchie [address] [place] [address] Social History Tobacco Use Types [...] filedocumented in this encounter Care Teams Manager In Training Relationship Specialty Start Date End Date Juan Jose Ellington NP [address] [place] [address] PCP - General 12/25/18 documented as of this encounter
--- OUTSIDE RECORDS SUMMARY | 2024-10-25 12:31 | XMS_ITS | Clinical Summary ---
Author Organization [address] [facility] Address [address] [place] [address] Phone Care Team Providers Care Sugar Cane Planter Machine Operator Name Role Phone Juan Jose [...] Ventolin HFA 90 mcg/actuation inhalerIndicati ons:Emphysema, unspecified ([facility] V24, [facility] V28) INHALE 2 PUFFS INTO THE LUNGS EVERY 4 HOURS NEEDED FOR COUGH OR WHEEZING FOR UP TO 30 DAYS. 18 each 11 5 Active Oxygen Therapy via Nasal Cannula (O2) gas Inhale 2 L/min by mouth continuously. via nasal canula on exertion 5 Active albuterol 2.5 mg /3 mL (0.083 %) nebulizer solutionIndicat ions:Chronic obstructive pulmonary disease, unspecified COPD type ([facility] V24, [facility] V28) Take 3 mL (2.5 mg total) by nebulization every 6 (six) hours if needed for wheezing. 300 mL 2 5 05/04/19 26 Active predniSONE (DELTASONE) 20 mg tablet 2 tab po qd x 1 and then 1 tab po qd x 6 days 8 each 5 Active predniSONE (DELTASONE) 10 mg tablet Take 1 tablet (10 mg total) by mouth 1 (one) time each day. 30 each 1 5 11/30/19 25 Active Active Problems Problem Noted Date Diagnosed Date Bipolar disorder ([facility] V24, [facility] V28) 09/21 COPD (chronic obstructive pu lmonary disease) ([facility] V24, [facility] V28) 10/11/2018 Hyperlipidemia 10/11/2018 Hypertension 10/11/2018 Pulmonary nodule 10/11/2018 Overview (04/12/2024): RUL-05/30/18 S/p VATS & wedge resection-no malignancy Sarcoidosis of lung ([facility] V24) 10/11/2018 Encounters Date Type Department Care Team Description 09/11/2024 10:47 AM EDT - 09/11/2024 11:59 PM EDT Hospital Encounter [facility] CT Scan [address] [place] [address] Pulmonary nodule Discharge Disposition: Home or Self Care 08/09/2024 8:45 AM EDT Office Visit Pulmonolgy - [place] [address] [facility] [address] [place] [address] Sarah Breaux MD Chronic obstructive pulmonary disease, unspecified COPD type ([facility] V24, [facility] V28) (Primary Dx); Sarcoidosis of lung ([facility] V24); Pulmonary nodule; Hypoxemia from Last 3 Months Immunizations Name Administration [...] Comments COPD (chronic obstructive pu lmonary disease) ([facility] V24, [facility] V28) 10/11/2018 DX:COPD (chronic o bstructive pulmonary disease) (HCC) Sarcoidosis of lung ([facility] V24) 10/11/2018 DX:Sarcoidosis of lung (HCC) Pulmonary nodule 10/11/2018 DX:Pulmonary no dule; COMMENT: RUL-05/30/18 S/p VATS & wedge resection-no malignancy Bipolar disorder ([facility] V2 4, [facility] V28) 10/11/2018 DX:Bipolar disorder ([facility]) Hypertension 10/11/2018 DX:Hypertension Hyperlipidemia 10/11/2018 DX:Hyperlipidemi a SHARON (acute kidney injury) ([facility] V24) DX:SHARON (acute kidney injury) (HCC) Atrial fibrillation ([facility] V24, [facility] V28) DX:Atrial fibrillation (HCC) Renal disease DX:Renal disease Leukocytosis DX:Leukocytosis [place] nephropathy DX:[place] n ephropathy Mediastinal lymphadenopathy DX:M ediastinal lymphadenopathy Necrotizing granulomatous inflammation of lung ([facility] V24, [facility] V28) DX:Necrotizing granulomatous inflammation of lung (HCC) [...] 9:00 AM EDT Office Visit Pulmonolgy - [place] [address] [facility] [address] [place] [address] Sarah Breaux MD [address] [facility] [address] [place] [address] Health Maintenance Due Date Last Done Comments [...] Signed Date: 09/13/2024 15:50 ET Workstation ID: [id number] Transcribed By: Self Edit Transcribed Date: 09/13/2024 [...] Signed Date: 09/13/2024 15:50 ET Workstation ID: [id number] Transcribed By: Self Edit Transcribed Date: 09/13/2024 15:48 ET us Sarah Breaux MD IMG CT PROCEDURES Final Result * CT LUNG SCREENING LOW DOSE (06/13/2023 3:45 PM EDT) Anatomical Region Laterality Modality Computed Tomogra phy 06/12/2023 11:3 6 AM EDT Narrative 06/13/2023 3:45 PM EDT [facility] Diagnostic Imaging Department [address] [place] [address] Patient: NIKKI HURTADO /Age/Sex: 1945 - 77 - F Unit#: [id number] Location/Status: SPDICATLS/REG CLI Mnemonic/Ordering Site: [facility] Ordering Physician: MULUGETA SU MD CT Lung [...] Procedure Note Edgard Torres MD - 10/09/2023 [facility] Diagnostic Imaging Department [address] [place] [address] Patient: NIKKI HURTADO Jory /Age/Sex: 1945 - 77 - F Unit#: [id number] [facility] CLI Mnemonic/Ordering Site: [facility] Ordering Physician: MULUGETA SU MD [...] Recently Relevant to Health Maintenance Insurance MEDICARE Care Teams Sugar Cane Planter Machine Operator Relationship Specialty Start Date End Date Juan Jose Ellington NP [address] [facility] [place] PCP - General 06/26/18
--- OUTSIDE RECORDS SUMMARY | 2024-10-25 12:31 | XMS_ITS | Encounter Summary ---
Author Organization [facility] Address [address] [place] [address] Phone Care Team Providers Care Grades 1 Thru 5 Teacher Name Role Phone Juan Jose Ellington SUPERVISOR PACKING ROOM Primary Care Provider [phone] Encounter Details Date Type Department Care Team (Late st Contact Info) Description 03/19/2024 Documentation Only [facility] [place], [address] [place] [address] Tatyana Ritchie [address] [place] [address] Social History Tobacco Use Types [...] on filedocumented in this encounter Care Teams Grades 1 Thru 5 Teacher Relationship Specialty Start Date End Date Juan Jose Ellington NP [address] [place] [address] PCP - General 12/25/18 documented as of this encounter
--- OUTSIDE RECORDS SUMMARY | 2024-10-25 12:31 | XMS_ITS | Encounter Summary ---
Author Organization [facility] Address [address] [place] [address] Phone Care Team Providers Care Inbound Telemarketer Name Role Phone Juan Jose Ellington SLIP COVER ESTIMATOR Primary Care Provider [phone] Encounter Details Date Type Department Care Team (Late st Contact Info) Description 03/19/2024 Documentation Only [facility] [place], [address] [place] [address] Tatyana Ritchie [address] [place] [address] Social History Tobacco Use Types [...] on filedocumented in this encounter Care Teams Inbound Telemarketer Relationship Specialty Start Date End Date Juan Jose Ellington NP [address] [place] [address] PCP - General 12/25/18 documented as of this encounter
--- OUTSIDE RECORDS SUMMARY | 2024-10-25 12:31 | XMS_ITS | Encounter Summary ---
Author Organization [facility] Address [address] [place] [address] Phone Care Team Providers Care Retail Experience Specialist Name Role Phone Juan Jose Ellington SLAB LIFTING SUPERVISOR Primary Care Provider [phone] Encounter Details Date Type Department Care Team (Late st Contact Info) Description 10/25/2023 Documentation Only [facility] [place], [address] [place] [address] Tatyana Ritchie [address] [place] [address] Social History Tobacco Use Types [...] on filedocumented in this encounter Care Teams Retail Experience Specialist Relationship Specialty Start Date End Date Juan Jose Ellington NP [address] [facility] [place] [address] PCP - General 12/25/18 documented as of this encounter
--- OUTSIDE RECORDS SUMMARY | 2024-10-25 12:31 | XMS_ITS | Encounter Summary ---
Author Organization [facility] Address [address] [place] [address] Phone Care Team Providers Care Commercial Lines Underwriter Name Role Phone Juan Jose Ellington MECHANICAL PRODUCT DESIGN ENGINEER Primary Care Provider [phone] Encounter Details Date Type Department Care Team (Late st Contact Info) Description 10/25/2023 Documentation Only [facility] [place], [address] [place] [address] Tatyana Ritchie [address] [place] [address] Social History Tobacco Use Types [...] on filedocumented in this encounter Care Teams Commercial Lines Underwriter Relationship Specialty Start Date End Date Juan Jose Ellington NP [address] [facility] [place] [address] PCP - General 12/25/18 documented as of this encounter
--- OUTSIDE RECORDS SUMMARY | 2024-10-25 12:31 | XMS_ITS | Encounter Summary ---
Author Organization [facility] Address [address] [place] [address] Phone Care Team Providers Care Event Coordinator Marketing And Sales Name Role Phone Juan Jose Ellington EMT/PARAMEDIC Primary Care Provider [phone] Encounter Details Date Type Department Care Team (Late st Contact Info) Description 10/25/2023 Documentation Only [facility] [place], [address] [place] [address] Tatyana Ritchie [address] [place] [address] Social History Tobacco Use Types [...] on filedocumented in this encounter Care Teams Event Coordinator Marketing And Sales Relationship Specialty Start Date End Date Juan Jose Ellington NP [address] [facility] [place] [address] PCP - General 12/25/18 documented as of this encounter
--- OUTSIDE RECORDS SUMMARY | 2024-10-25 12:31 | XMS_ITS | Clinical Summary ---
Author Organization [facility] [place], Address [address] [place] [address] [place] [address] Phone Care Team Providers Care Residential Sales Consultant Name Role Phone Juan Jose Ellington NP Primary Care Provider [phone] Allergies No known active allergies Medications albuterol [...] Encounters Date Type Department Care Team Description 09/18/2024 Documentation Only [facility] [place], [address] [place] [address] Tatyana Ritchie from Last 3 Months Family [...] 10/23/2018 12:00 PM EDT Plan of Treatment Health Maintenance Due Date Last Done Comments Pneumococcal Vaccine: 50+ Ye ars (2 of 2 - PPSV23, PCV20, or PCV21) 04/17/2021 02/20/2021 Influenza Vaccine (#1) 2024 Pneumococcal Vaccine: Peds ( 0 to 5 Years) and At-Risk Patients (6 to 49 Years) Discontinued 02/20/2021 Hepatitis B Vaccine Aged Out No longe r eligible based on patient's age to complete this topic Insurance Medicaid [place] Medicare Medicare Medicaid [place] Care Teams Residential Sales Consultant Relationship Specialty Start Date End Date Juan Jose Ellington NP [address] [facility] [place] [address] PCP - General 12/25/18
--- OUTSIDE RECORDS SUMMARY | 2024-10-25 12:31 | XMS_ITS ---
Author Organization [facility] Care Team Providers Care Respiratory Equipment Assistant Name Role Phone Serafin Briones Unavailable Unavailable Harjinder, Tonja Unavailable Unavailable Levheim Magda Unavailable Unavailable Allergies and adverse reactions Code CodeSystem Substance Reaction Severity StartDate Concern Status 713908197 SNOMED CT Sulfa Antibiotics Unknown 04/05/2021 active Care Team Name Role Address Phone Organization Dates Serafin Briones PCP [address], [address], [place] (Office): : [facility] 04/23/2021 - 05/03/2021 Tonja Grande [address] [facility] [address], [address], [place] (Office): : [facility] 04/23/2021 - 05/03/2021 Magda Atulheim [address] [facility] [address] [place] [address], [address], [place] (Office): [facility] 04/23/2021 - 05/03/2021 Immunizations Immunization Status Vaccine [...] ON CHRONIC SYSTOLIC (CONGESTIVE) HEART FAILURE [address] active 2 CHRONIC OBSTRUCTIVE PULMONARY DISEASE WITH (ACUTE) EXACERBATION [address] active 3 MORBID (SEVERE) OBESITY DUE TO EXCESS CALORIES [address] active 4 MUSCLE WASTING AND ATROPHY, NOT ELSEWHERE CLASSIFIED, RIGHT SHOULDER [address] active 5 SCHIZOAFFECTIVE DISORDER, BIPOLAR TYPE [address] active 6 CHRONIC OBSTRUCTIVE PULMONARY DISEASE, UNSPECIFIED 2 04/23/[address] completed 7 PULMONARY FIBROSIS, UNSPECIFIED [address] active 8 ACUTE KIDNEY FAILURE, UNSPECIFIED 2 04/23/[address] completed 9 BIPOLAR DISORDER, CURRENT EPISODE MANIC SEVERE WITH PSYCHOTIC FEATURES [address] active 10 CHRONIC KIDNEY DISEASE, STAGE 3 UNSPECIFIED [address] active 11 ENCOUNTER FOR OBSERVATION FOR SUSPECTED EXPOSURE TO OTHER BIOLOGICAL AGENTS RULED OUT [address] active 12 ESSENTIAL (PRIMARY) HYPERTENSION [address] active 13 HYPERLIPIDEMIA, UNSPECIFIED [address] active 14 MUSCLE WASTING AND ATROPHY, NOT ELSEWHERE CLASSIFIED, RIGHT SHOULDER 2 04/23/[address] completed 15 NEPHROPATHY INDUCED BY UNSPECIFIED DRUG, MEDICAMENT OR BIOLOGICAL SUBSTANCE [address] active 16 PAROXYSMAL ATRIAL FIBRILLATION [address] active 17 SEPSIS DUE TO ESCHERICHIA COLI [E. COLI] [address] active 18 URINARY TRACT INFECTION, SITE NOT SPECIFIED [address] active 19 VITAMIN D DEFICIENCY, UNSPECIFIED [address] active Reason for Referral No Reasons for Referral Entered Social History Social History Observation Description Start Date End Date Code Code System Current Smoking Status Tobacco smoking consumption unknown 603695148 SNOMED CT Sex Assigned At Female 1945 [address]9 [facility] Gender Identity Vital Signs Code Code System Vitals Name Values and Units Timing Information 9279-1 LOINC Respiratory Rate Value=18.0 Units=/m in 05/03/2021 8310-5 LOINC Body Temperature Value=97.3 Units= F 05/03/2021 28606-9 INC O2 % BldC Oximetry Value=98.0 Units= % 05/03/2021 8462-4 LOINC Blood Pressure-Diastolic Value=63 Un its=mmHg 05/03/2021 8480-6 LOINC Blood Pressure-Systolic Hxrzq=531 Un its=mmHg 05/03/2021 8867-4 LOINC Heart rate Value=81.0 Units=/min 45782-2 LOINC Pain Level Value=0.0 05/03/2021 8302-2 LOINC Height Value=60.0 Units=Inches 04/23/2021 07772-1 LOINC Weight Pifka=988.3 Units=Lbs 05/2021
--- OUTSIDE RECORDS SUMMARY | 2024-10-25 12:31 | XMS_ITS | Encounter Summary ---
Author Organization [facility] Address [address] [place] [address] Phone Care Team Providers Care Wheel Truer Name Role Phone Juan Jose Ellington EMAIL DEPLOYMENT SPECIALIST Primary Care Provider [phone] Encounter Details Date Type Department Care Team (Late st Contact Info) Description 10/12/2023 Documentation Only [facility] [place], [address] [place] [address] Tatyana Ritchie [address] [place] [address] Social History Tobacco Use Types [...] on filedocumented in this encounter Care Teams Wheel Truer Relationship Specialty Start Date End Date Juan Jose Ellington NP [address] [facility] [place] [address] PCP - General 12/25/18 documented as of this encounter
[2024-10-25 13:12] LABS: MANUAL DIFF FLAG NO
[2024-10-25 13:26] LABS: Hematocrit 40.6 % (37.0-47.0); Hemoglobin 13.1 g/dl (12.0-16.0); Imm Gran Abs Auto 0.10 X10*3/uL (0.00-0.03); Imm Gran Pct Auto 0.9 % (0.0-0.4); Lymphocytes Absolute Auto 1.4 X10*3/uL (1.2-4.9); Mean Corpuscular HGB Conc 32.3 g/dl (31.0-35.0); Mean Corpuscular Hemoglobin 29.9 pg (27.0-33.0); Mean Corpuscular Volume 92.7 fL (80.0-98.0); NRBC Abs Auto 0.000 X10*3/uL (0.0-0.012); NRBC Pct Auto 0.0 /100WBC (0.0-0.2); Platelet Count 217 X10*3/uL (160-400); Red Blood Count 4.38 X10*6/uL (4.20-5.50); White Blood Count 11.3 X10*3/uL (4.8-10.8)
[2024-10-25 13:48] LABS: Hemoglobin A1C 126.2570 umol/L; Parathyroid Hormone Intact 96.7 pg/mL (8.7-77.1); Total Hemoglobin (HGBA1C) 3344.6335 umol/L
[2024-10-25 14:00] LABS: Anion Gap 13 (12-20); Blood Urea Nitrogen 33 mg/dL (9-16); Calcium 9.2 mg/dL (8.4-10.2); Carbon Dioxide 24 mmol/L (22-29); Chloride 109 mmol/L (96-108); Estimated Glomerular Filt Rate 27; Potassium 3.9 mmol/L (3.3-5.1); Sodium 142 mmol/L (135-145)
== END 2024-10-25 11:34 | disposition home or self-care (01) ==
LOC: HO.HMGCLDS 11:33
PROVIDERS: PCP Nurse Practitioner Family; Visit Provider Internal Medicine Nephrology
DX: N18.4 Chronic kidney disease, stage 4 (severe) (principal); Z13.1 Encounter for screening for diabetes mellitus
CPT/HCPCS: 36415; 80051; 82306; 82310; 82565; 83036; 83970; 84100; 84520; 85025

== ENCOUNTER 2024-11-08 10:30 | Outpatient (REF) | payer MEDICARE, MEDICAID, SELFPAY | END 2024-11-08 10:31 | disposition home or self-care (01) | LOC: HO.LNP 10:30 | PROVIDERS: PCP Nurse Practitioner Family; Visit Provider Urology | DX: N39.0 Urinary tract infection, site not specified (principal); N32.81 Overactive bladder; R32 Unspecified urinary incontinence; R30.0 Dysuria; R31.29 Other microscopic hematuria | CPT/HCPCS: 52000; 81003; 87086; 87088; 87186 ==

== ENCOUNTER 2024-11-08 10:30 | Outpatient (AMB) | payer MEDICARE, MEDICAID, SELFPAY ==
--- OUTSIDE RECORDS SUMMARY | 2024-11-08 11:06 | XMS_ITS | Clinical Summary ---
Author Organization 175 [facility] Address [address] [place] [address] Phone Care Team Providers Care County Home Demonstrator Name Role Phone Juan Jose Ellington NP [...] Ventolin HFA 90 mcg/actuation inhalerIndicati ons:Emphysema, unspecified ([facility] V24, [facility] V28) INHALE 2 PUFFS INTO THE LUNGS EVERY 4 HOURS NEEDED FOR COUGH OR WHEEZING FOR UP TO 30 DAYS. 18 each 11 5 Active Oxygen Therapy via Nasal Cannula (O2) gas Inhale 2 L/min by mouth continuously. via nasal canula on exertion 5 Active albuterol 2.5 mg /3 mL (0.083 %) nebulizer solutionIndicat ions:Chronic obstructive pulmonary disease, unspecified COPD type ([facility] V24, [facility] V28) Take 3 mL (2.5 [...] Problem Noted Date Diagnosed Date Bipolar disorder ([facility] V24, [facility] V28) 09/21 COPD (chronic obstructive pu lmonary disease) ([facility] V24, [facility] V28) 10/11/2018 Hyperlipidemia 10/11/2018 Hypertension 10/11/2018 Pulmonary nodule 10/11/2018 Overview (04/12/2024): RUL-05/30/18 S/p VATS & wedge resection-no malignancy Sarcoidosis of lung ([facility] V24) 10/11/2018 Encounters Date Type Department Care Team Description 09/11/2024 10:47 AM EDT - 09/11/2024 11:59 PM EDT Hospital Encounter [facility] CT Scan [address] [place] [address] Pulmonary nodule Discharge Disposition: Home or Self Care 08/09/2024 8:45 AM EDT Office Visit Pulmonology - [place] [address] [facility] [address] [place] [address] Sarah Breaux MD Chronic obstructive pulmonary disease, unspecified COPD type ([facility] V24, [facility] V28) (Primary Dx); Sarcoidosis of lung ([facility] V24); Pulmonary nodule; Hypoxemia from Last 3 Months Immunizations Name Administration Dates Next Due Moderna SARS-CoV-2 COVID-19, mRNA, LNP-S, preservative free 05/30/2020,05/02/2020 Surgical History Surgery Date Site/Laterality Comments OTHER SURGICAL HISTORY 04/27/2018 Right PROCEDURE: OR BRNCHSC INCL FLUOR GDNCE DX W/CELL WASHG SPX; COMMENT: negative malignancy TUBAL LIGATION PROCEDURE: HISTORICAL TUBAL LIGATION OTHER SURGICAL HISTORY 05/30/2018 Right PROCEDURE: OR BRONCHOSCOPY W/CPTR-ASST IMAGE-GUIDED NAVIGATION; COMMENT: da Arthur/VATS RUL wedge resection w/extensive pneumolysis OTHER SURGICAL HISTORY PROCEDURE: OR CARDIOVERSION ELECTIVE ARRHYTHMIA EXTERNAL Medical History Medical History Date Comments COPD (chronic obstructive pu lmonary disease) ([facility] V24, [facility] V28) 10/11/2018 DX:COPD (chronic o bstructive pulmonary disease) (HCC) Sarcoidosis of lung ([facility] V24) 10/11/2018 DX:Sarcoidosis of lung (HCC) Pulmonary nodule 10/11/2018 DX:Pulmonary no dule; COMMENT: RUL-05/30/18 S/p VATS & wedge resection-no malignancy Bipolar disorder ([facility] V2 4, [facility] V28) 10/11/2018 DX:Bipolar disorder (HCC) Hypertension 10/11/2018 DX:Hypertension Hyperlipidemia 10/11/2018 DX:Hyperlipidemi a SHARON (acute kidney injury) ([facility] [place] V24) DX:SHARON (acute kidney injury) (HCC) Atrial fibrillation ([facility] V24, [facility] V28) DX:Atrial fibrillation (HCC) Renal disease DX:Renal disease Leukocytosis DX:Leukocytosis [place] nephropathy DX:[place] n ephropathy Mediastinal lymphadenopathy DX:M ediastinal lymphadenopathy Necrotizing granulomatous inflammation of lung ([facility] V24, [facility] V28) DX:Necrotizing granulomatous inflammation of [...] Description 12/11/2024 9:00 AM EDT Office Visit Pulmonology - [place] [address] [facility] [address] [place] [address] Sarah Breaux MD [address] [facility] [address] [place] [address] Health Maintenance Due Date Last Done Comments [...] Signed Date: 09/13/2024 15:50 ET Workstation ID: [id number] Transcribed By: Self Edit Transcribed Date: 09/13/2024 [...] Signed Date: 09/13/2024 15:50 ET Workstation ID: [id number] Transcribed By: Self Edit Transcribed Date: 09/13/2024 15:48 ET us Sarah Breaux MD IMG CT PROCEDURES Final Result * CT LUNG SCREENING LOW DOSE (06/13/2023 3:45 PM EDT) Anatomical Region Laterality Modality Computed Tomogra phy 06/12/2023 11:3 6 AM EDT Narrative 06/13/2023 3:45 PM EDT [facility] Diagnostic Imaging Department [address] [place] [address] Patient: NIKKI HURTADO /Age/Sex: 1945 - 77 - F Unit#: [id number] Location/Status: SPDICATLS/REG CLI Mnemonic/Ordering Site: [facility] Ordering Physician: MULUGETA SU MD CT Lung [...] Procedure Note Edgard Torres MD - 10/09/2023 [facility] Diagnostic Imaging Department [address] [place] [address] Patient: NIKKI HURTADO Jory /Age/Sex: 1945 - 77 - F Unit#: [id number] Location/Status: SPDICATLS/REG CLI Mnemonic/Ordering Site: [facility] Ordering Physician: MULUGETA SU [...] to Health Maintenance Insurance MEDICARE Care Teams County Home Demonstrator Relationship Specialty Start Date End Date Juan Jose Ellington NP [address] [facility] [place] [place] PCP - General 06/26/18
--- OUTSIDE RECORDS SUMMARY | 2024-11-08 11:06 | XMS_ITS | Encounter Summary ---
Author Organization [facility] Address [address] [place] [address] Phone Care Team Providers Care Fixture Relamper Name Role Phone Juan Jose Ellington SYSTEMS LEAD Primary Care Provider [phone] Encounter Details Date Type Department Care Team (Late st Contact Info) Description 10/25/2023 Documentation Only [facility] [place], [address] [place] [address] Tatyana Ritchie [address] [place], [place] [...] on filedocumented in this encounter Care Teams Fixture Relamper Relationship Specialty Start Date End Date Juan Jose Ellington NP [address] [facility] [place] [address] PCP - General 12/25/18 documented as of this encounter
--- OUTSIDE RECORDS SUMMARY | 2024-11-08 11:06 | XMS_ITS | Encounter Summary ---
Author Organization [facility] Address [address] [place] [address] Phone Care Team Providers Care Joint Sealer Name Role Phone Juan Jose Ellington CASING MACHINE OPERATOR Primary Care Provider [phone] Encounter Details Date Type Department Care Team (Late st Contact Info) Description 03/19/2024 Documentation Only [facility] [place], [address] [place] [address] Tatyana Ritchie [address] [place] [address] Social History Tobacco Use Types [...] on filedocumented in this encounter Care Teams Joint Sealer Relationship Specialty Start Date End Date Juan Jose Ellington NP 1961 [facility] [place] [id number] PCP - General 12/25/18 documented as of this encounter
--- OUTSIDE RECORDS SUMMARY | 2024-11-08 11:06 | XMS_ITS | Encounter Summary ---
Author Organization [facility] Address [address] [place] [address] Phone Care Team Providers Care Guest History Clerk Name Role Phone Juan Jose Ellington QUALITY ASSURANCE CLERK Primary Care Provider [phone] Encounter Details Date Type Department Care Team (Late st Contact Info) Description 03/19/2024 Documentation Only [facility] [place], [address] [place] [address] Tatyana Ritchie [address] [place] [address] Social History Tobacco Use Types [...] on filedocumented in this encounter Care Teams Guest History Clerk Relationship Specialty Start Date End Date Juan Jose Ellington NP 1961 [facility] [place] [address] PCP - General 12/25/18 documented as of this encounter
--- OUTSIDE RECORDS SUMMARY | 2024-11-08 11:06 | XMS_ITS | Encounter Summary ---
Author Organization [facility] Address [address] [place] [address] Phone Care Team Providers Care Clinical Nurse Specialist Name Role Phone Juan Jose Ellington CAPONIZER Primary Care Provider [phone] Encounter Details Date Type Department Care Team (Late st Contact Info) Description 10/12/2023 Documentation Only [facility] [place], [address] [place] [address] Tatyana Ritchie [address] [place] [address] Social History Tobacco Use Types [...] filedocumented in this encounter Care Teams Clinical Nurse Specialist Relationship Specialty Start Date End Date Juan Jose Ellington NP 1961 [facility] [place] [address] PCP - General 12/25/18 documented as of this encounter
--- OUTSIDE RECORDS SUMMARY | 2024-11-08 11:06 | XMS_ITS | Encounter Summary ---
Author Organization [facility] Address [address] [place] [address] Phone Care Team Providers Care Institute Director Name Role Phone Juan Jose Ellington CORK CUTTER Primary Care Provider [phone] Encounter Details Date Type Department Care Team (Late st Contact Info) Description 10/25/2023 Documentation Only [facility] [place], [address] [place] [address] Tatyana Ritchie [address] [place] [address] Social History Tobacco Use Types [...] on filedocumented in this encounter Care Teams Institute Director Relationship Specialty Start Date End Date Juan Jose Ellington NP 1961 [facility] [place] [address] PCP - General 12/25/18 documented as of this encounter
--- OUTSIDE RECORDS SUMMARY | 2024-11-08 11:06 | XMS_ITS | Clinical Summary ---
Author Organization [facility] [place], Address [address] [place] [address] [place] [address] Phone Care Team Providers Care Lip And Gate Builder Name Role Phone Juan Jose Ellington NP Primary Care Provider [phone] Allergies No known active allergies Medications albuterol [...] Only [facility] [place], [address] [place] [address] Tatyana Ritchie [...] [place] Care Teams Lip And Gate Builder Relationship Specialty Start Date End Date Juan Jose Ellington NP 1961 [place] [address] PCP - General 12/25/18
--- OUTSIDE RECORDS SUMMARY | 2024-11-08 11:06 | XMS_ITS | Encounter Summary ---
Author Organization [facility] Address [address] [place] [address] Phone Care Team Providers Care Distillery Laborer Name Role Phone Juan Jose Ellington CLOTH WIRE WEAVER Primary Care Provider [phone] Encounter Details Date Type Department Care Team (Late st Contact Info) Description 10/25/2023 Documentation Only [facility] [place], [address] [place] [address] Tatyana Ritchie [address] [place] [address] Social History Tobacco Use Types [...] on filedocumented in this encounter Care Teams Distillery Laborer Relationship Specialty Start Date End Date Juan Jose Ellington NP 1961 [facility] [place] [address] PCP - General 12/25/18 documented as of this encounter
--- OUTSIDE RECORDS SUMMARY | 2024-11-08 11:06 | XMS_ITS | Encounter Summary ---
Author Organization [facility] Address [address] [place] [address] Phone Care Team Providers Care Warm In Name Role Phone Juan Jose Ellington PIGMENT FURNACE TENDER Primary Care Provider [phone] Encounter Details Date Type Department Care Team (Late st Contact Info) Description 03/26/2024 Documentation Only [facility] [place], [address] [place] [address] Tatyana Ritchie [address] [place] [address] Social History Tobacco Use Types [...] on filedocumented in this encounter Care Teams Warm In Relationship Specialty Start Date End Date Juan Jose Ellington NP 1961 [facility] [place] [address] PCP - General 12/25/18 documented as of this encounter
--- OUTSIDE RECORDS SUMMARY | 2024-11-08 11:06 | XMS_ITS | Encounter Summary ---
Author Organization [facility] Address [address] [place] [address] Phone Care Team Providers Care Rn Medical Inpatient Services Name Role Phone Juan Jose Ellington CONSTRUCTION CONTRACTOR Primary Care Provider Encounter Details Date Type Department Care Team (Late st Contact Info) Description 09/18/2024 Documentation Only [facility] [place], [address] [place] [address] Tatyana Ritchie [address] [place] [address] Social History Tobacco Use Types [...] on filedocumented in this encounter Care Teams Rn Medical Inpatient Services Relationship Specialty Start Date End Date Juan Jose Ellington NP 1961 [facility] [place] [address] PCP - General 12/25/18 documented as of this encounter
--- NOTE | 2024-11-08 11:11 | A.OFFVIS_ITS ---
Intake Visit Reasons: cysto Intake Note: Patient presents today for a cystoscopy Urology Medication:Cranberry Blood Thinner:Apixaban Antibiotic Allergies:Sulfa Lot #:[id number] Exp: 05/16/27 Allergies Sulfa (Sulfonamide Antibiotics) (SULFA (SULFONAMIDE ANTIBIOTICS)) Allergy (Severe, Verified 11/08/24 11:13) RASH, Anaphylaxis Medication List - Last Reconciled 11/08/24 by Diane Hauser MD acetaminophen 325 mg PO QID PRN 7 days albuterol sulfate 90 mcg/actuation (Ventolin HFA) 2 puffs inhalation Q6H PRN amiodarone 100 mg (1/2 x 200 mg) PO DAILY 90 days apixaban (Eliquis) 5 mg PO BID cefuroxime axetil 250 mg PO DAILY 7 days cephalexin 250 mg PO Q8H 7 days cephalexin 250 mg PO DAILY 30 days cholecalciferol (vitamin D3) 50 mcg PO DAILY cranberry 1,000 mg PO DAILY [disposable bed pads As directed, uses 6 per day] [disposable gloves As directed, uses 8 per day to provide incontinence care] [disposable incontinence wipes As directed, uses 10 per day to provide incontinence care] [disposable pull up briefs As directed, uses 8 per day] fesoterodine ER (Toviaz) 4 mg PO DAILY 30 days fsnqfvkkval-lgclutlqg-jkrhsjzj 100-62.5-25 mcg (Trelegy Ellipta) 1 ea inhalation DAILY furosemide 20 mg PO Q OTHER DAY hydroxyzine HCl 10 mg PO DAILY PRN lamotrigine 50 mg PO BEDTIME metoprolol succinate ER 50 mg (2 x 25 mg) PO DAILY nitrofurantoin macrocrystal 50 mg PO DAILY olanzapine 7.5 mg PO BEDTIME prednisone 20 mg PO DAILY simvastatin 20 mg PO BEDTIME walker Standard walker, no wheels [washable bed pads As directed] HPI Comments Details: 11/08/24-- Here for office cysto History of Present Illness The patient is a 78-year-old female presenting with recurrent urinary tract infections. She has experienced two to three episodes of urinary tract infections since her last visit, with the most recent requiring antibiotic treatment approximately three to four weeks ago. The patient reports burning sensations primarily in the morning when the infections are not active, and constant burning when they are. The patient has a history of chronic kidney disease, which has been stable according to her formula weigher, and she is not currently on dialysis. Her kidney function was further compromised following an episode of pneumonia, which required intravenous antibiotics. The patient also suffers from urinary incontinence, with no bladder control and requires the use of pull-ups, which are changed frequently. She does not feel the urge to urinate and requires reminders to void. The patient has a history of chronic obstructive pulmonary disease, attributed to long-term smoking, which she ceased approximately 12 to 13 years ago. Results - Cystoscopy: Mild bladder wall thickening, minimal erythema noted, no suspicious bladder lesions - Urinalysis: 2+ leukocytes, 3+ blood Plan 1. Recurrent Urinary Tract Infections - Initiate daily nitrofurantoin 50 mg for prophylaxis - Send urine for culture to monitor for infection - Follow-up with nurse practitioner in two months to reassess condition 2. Urinary Incontinence - Trial of Toviaz 4 mg dailyfor bladder spasms and urinary leakage 3. Chronic Kidney Disease - Continue monitoring kidney function with nephrology follow-up 08/30/24 History of Present Illness - The patient is a 78-year-old female presenting with recurrent urinary tract infections. - She has experienced four urinary tract infections in the last month and a half, with the current infection being treated with antibiotics. - Previous urine cultures on 07/06/24 and 07/22/24 were positive for Klebsiella pneumoniae. - Symptoms include stinging during urination, worsening tremors, and occasional low-grade fever. - Chronic kidney disease stage 3 is managed by nephrology, with a history of bilateral cortical thinning of the kidneys and a benign right renal cyst noted on ultrasound. - She has a history of chronic obstructive pulmonary disease, having quit smoking 12-13 years ago, and is on medication for COPD and heart failure. Results - Urine cultures on 07/06/24 and 07/22/24 positive for Klebsiella pneumoniae - Abdominal ultrasound in March showed benign right renal cyst and bilateral cortical thinning of the kidneys Plan - Send current urine sample for culture and cytology to check for abnormal cells. - Prescribe Keflex 250 mg TID for 7 days, followed by daily Keflex for maintenance. - Plan for a follow-up kidney ultrasound to monitor renal health. - Schedule a cystoscopy to evaluate the bladder. [facility] Medical History Paroxysmal atrial fibrillation Emphysema of lung Tardive dyskinesia Coarse tremors Hypersomnia Snoring SHARON (acute kidney injury) Mediastinal lymphadenopathy Atrial fibrillation Dyslipidemia Kidney disease Leukocytosis Necrotizing granulomatous inflammation of lung Bipolar 1 disorder Vitamin D deficiency COPD (chronic obstructive pulmonary disease) Sarcoidosis HTN (hypertension) [place] nephropathy Surgical History History of cardioversion History of bronchoscopy Family History Child No Financial Resp No problems noted. 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 Current occupational exposures/hazards: No Cognitive needs: No Hearing needs: No Vision needs: Yes Review of Systems Const All systems reviewed & are unremarkable except as noted in HPI and below Reports no additional complaints Eyes Reports no additional complaints ENT Reports no additional complaints Card Reports no additional complaints Resp Reports no additional complaints GI Reports no additional complaints Reports as per HPI Musc Reports no additional complaints Skin/Breast Reports system reviewed and no additional complaints, except as documented Neuro Reports no additional complaints Psych Reports no additional complaints Endo Reports no additional complaints Ihsan/Lymph Reports no additional complaints Aller/Immun Reports no additional complaints Office Procedures Cystoscopy Consent Discussed risk and benefit or proposed procedure with the patient. Information consent for procedure given to the patient. Discussed technical aspects, risks, benefits and alternatives in full. Addressed all of the patient's questions and concerns regarding the procedure. The patient demonstrated knowledge and understanding. They wish to proceed with this procedure. Preparation The patient was prepped in the usual manner. A counter intelligence agent was present and in the room. Genitalia was prepped with betadine solution in a sterile manner. Lidocaine Jelly 2% was placed into the urethra and 16Fr flexible Olympus cystoscope was inserted into the meatus after adequate lubrication. Procedure Time out per protocol performed. Speculum used as indicated for adequate visualization of urethra, the flexible cystoscope is passed transurethrally: The bladder was inspected in its entirety with utilization retroflexion displaying: Tumor(s): no suspicious bladder lesions visualized Trabeculation: Mild to Moderatei Mucosal Erthema: mild Orifices: normal shape and position Urethra: normal [id number] DISPOSABLE SCOPE URO-G FLEXIBLE SCOPE Procedure code (CPT) selection complete Office Meds lidocaine HCl 2 % mucosal jelly in applicator Performing Provider: Diane Hauser MD Performing Location: [facility] Administered by: Gabino Wiggins LPN on 11/08/24 11:26 Dose Route Admin Location Dispensed Lot Number Expiration Date [facility] Liquid Loader 10 mL intra-urethral 20 mL ciprofloxacin HCl 500 mg tablet Performing Provider: Diane Hauser MD Performing Location: [facility] Administered by: Gabino Wiggins LPN on 11/08/24 11:26 Dose Route Admin Location Dispensed Lot Number Expiration Date [facility] Liquid Loader 500 mg PO 1 tab phenazopyridine 200 mg tablet Performing Provider: Diane Hauser MD Performing Location: [facility] Administered by: Gabino Wiggins LPN on 11/08/24 11:26 Dose Route Admin Location Dispensed Lot Number Expiration Date [place] Liquid Loader 200 mg PO 1 tab Results AMB Urinalysis, Automated UA Leukoctes 125 Sudheer/uL Last Edit by Shoan Burnett on 11/08/24 17:08 UA Nitrite Negative Last Edit by Shona Burnett on 11/08/24 17:08 UA Urobilinogen 3.5 mg/dL Last Edit by Shona Burnett on 11/08/24 17:08 UA Protein 0 mg/dL Last Edit by Shona Burnett on 11/08/24 17:08 UA pH 6.0 Last Edit by Shona Burnett on 11/08/24 17:08 UA Blood 200 Bao/uL Last Edit by Shona Burnett on 11/08/24 17:08 UA Specific [place] 1.010 Last Edit by Shona Burnett on 11/08/24 17:08 UA Ketone Negative Last Edit by Shona Burnett on 11/08/24 17:08 UA Bilirubin 0 mg/dL Last Edit by Shona Burnett on 11/08/24 17:08 UA Glucose 0 mg/dL Last Edit by Shona Burnett on 11/08/24 17:08 Results Reviewed Results Reviewed: Laboratory Last Values Urine pH (Auto) 6.0 11/08/24 11:52 Specific [place] (Auto) 1.010 11/08/24 11:52 Urine Protein (Auto) 0 mg/dL 11/08/24 11:52 Glucose (UA)(Auto) 0 mg/dL 11/08/24 11:52 Urine Ketones (Auto) Negative 11/08/24 11:52 Urine Blood (Auto) 200 Bao/uL 11/08/24 11:52 Urine Nitrite (Auto) Negative 11/08/24 11:52 Urine Bilirubin (Auto) 0 mg/dL 11/08/24 11:52 Urine Urobilinogen (Auto) 3.5 mg/dL 11/08/24 11:52 Leukocyte Esterase (Auto) 125 Sudheer/uL 11/08/24 11:52 Assessment & Plan Assessment & Plan (1) Recurrent UTI: Code(s): N39.0 - Urinary tract infection, site not specified Category: Medical Plan Plan 1. Recurrent Urinary Tract Infections - Initiate daily nitrofurantoin 50 mg for prophylaxis - Send urine for culture to monitor for infection - Follow-up with nurse practitioner in two months to reassess condition 2. Urinary Incontinence - Trial of Toviaz 4 mg dailyfor bladder spasms and urinary leakage 3. Chronic Kidney Disease - Continue monitoring kidney function with nephrology follow-up Orders: Orders AMB Urinalysis Automated 11/08/24 N39.0 - Urinary tract infection, site not specified, R30.0 - Dysuria, R31.29 - Other microscopic hematuria, R32 - Unspecified urinary incontinence AMB Cystoscopy 11/08/24 N39.0 - Urinary tract infection, site not specified, R30.0 - Dysuria, R31.29 - Other microscopic hematuria, R32 - Unspecified urinary incontinence Urine Culture 11/08/24 N39.0 - Urinary tract infection, site not specified, R30.0 - Dysuria, R31.29 - Other microscopic hematuria, R32 - Unspecified urinary incontinence Medications: New nitrofurantoin macrocrystal must administer with a meal/food 50 mg PO DAILY 30 caps 5RF N39.0 - Urinary tract infection, site not specified fesoterodine ER (Toviaz) 4 mg PO DAILY 30 tabs 5RF 30 days N32.81 - Overactive bladder Coding Level of Care Code Est Pt Level 4 (37738) Diagnoses Recurrent UTI N39.0 CPT Codes Cystoscopy - CPT: [id number] ([id number])
== END 2024-11-08 12:07 | disposition home or self-care (01) ==
LOC: HO.HUSH 10:31
PROVIDERS: PCP Nurse Practitioner Family; Visit Provider Urology
DX: R31.29 Other microscopic hematuria (principal); R30.0 Dysuria; R32 Unspecified urinary incontinence; N39.0 Urinary tract infection, site not specified
CPT/HCPCS: 52000

== ENCOUNTER 2024-11-15 15:01 | Outpatient (AMB) | payer MEDICARE, MEDICAID, SELFPAY ==
--- NOTE | 2024-11-15 15:08 | HO.NEPHOV_ITS ---
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 Her creatinine has been close to baseline. She has H/O recurrent UTI and has not had a cystoscopy. She is known to have right renal cysts. She was accompanied by her daughter. [facility] Medical History Paroxysmal atrial fibrillation Emphysema of lung Tardive dyskinesia Coarse tremors Hypersomnia Snoring SHARON (acute kidney injury) Mediastinal lymphadenopathy Atrial fibrillation Dyslipidemia Kidney disease Leukocytosis Necrotizing granulomatous inflammation of lung Bipolar 1 disorder Vitamin D deficiency COPD (chronic obstructive pulmonary disease) Sarcoidosis HTN (hypertension) [place] nephropathy Surgical History History of cardioversion History of bronchoscopy Family History Child No Financial Resp No problems noted. 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 Current occupational exposures/hazards: No Cognitive needs: No Hearing needs: No Vision needs: Yes Review of Systems Const All systems reviewed & are unremarkable except as noted in HPI and below Physical Exam Const General: comfortable and no acute distress Orientation/consciousness: patient oriented x3 HEENT Head: Yes normocephalic Mouth: Normal oral and palatal mucosa present Eyes EOM: EOMs intact bilaterally Neck Neck: Yes supple Resp Auscultation: clear to auscultation bilaterally Cardio Jugular venous distension: no JVD Rate: regular rate GI Palpation (GI): Soft to palpation Auscultation: normal bowel sounds General: Yes no CVA tenderness Back/Spine/Pelvis Back: no CVA tenderness Skin General skin exam: no rashes or lesions noted Neuro General: patient oriented x3 and moves all extremities Extrem General: Yes no pedal edema Results Reviewed Nephrology Results: Hgb, (12.0-16.0) 13.1 g/dl 10/25/24 WBC, (4.8-10.8) 11.3 X10*3/uL H 10/25/24 Plt Count, (160-400) 217 X10*3/uL 10/25/24 Sodium, (135-145) 142 mmol/L 10/25/24 Potassium, (3.3-5.1) 3.9 mmol/L 10/25/24 Chloride, (96-108) 109 mmol/L H 10/25/24 Carbon Dioxide, (22-29) 24 mmol/L 10/25/24 BUN, (9-16) 33 mg/dL H 10/25/24 Creatinine, (0.5-1.4) 1.84 mg/dL H 10/25/24 Calcium, (8.4-10.2) 9.2 mg/dL 10/25/24 Phosphorus, (2.7-4.5) 3.3 mg/dL 10/25/24 PTH Intact, (8.7-77.1) 96.7 pg/mL H 10/25/24 Urine Protein, (Neg-Trace) 30 (1+) mg/dL H 09/19/24 Assessment & Plan Assessment & Plan (1) HTN (hypertension): Code(s): I10 - Essential (primary) hypertension Category: Medical Qualifiers: Hypertension type: primary hypertension Qualified Code(s): I10 - Essential (primary) hypertension (2) CKD (chronic kidney disease) stage 4, GFR 15-29 ml/min: Code(s): N18.4 - Chronic kidney disease, stage 4 (severe) Category: Medical Plan Has baseline CKD 3 B. Has H/O SHARON on CKD 4 due to compromise in renal perfusion with resultant tubular injury which has resolved. Urine output good. Serum creatinine stable ; Volume status optimal. Seen Urology, had cystoscopy. Has a F/U for recurrent UTI's with them. C/W rest of current management for now; Labs/FU; All questions answered Orders: Orders Complete Blood Count Auto Diff 4 Months I10 - Essential (primary) hypertension, N18.4 - Chronic kidney disease, stage 4 (severe) Blood Urea Nitrogen 4 Months I10 - Essential (primary) hypertension, N18.4 - Chronic kidney disease, stage 4 (severe) Electrolytes 4 Months I10 - Essential (primary) hypertension, N18.4 - Chronic kidney disease, stage 4 (severe) Calcium 4 Months I10 - Essential (primary) hypertension, N18.4 - Chronic kidney disease, stage 4 (severe) Vitamin D 25-OH Total 4 Months I10 - Essential (primary) hypertension, N18.4 - Chronic kidney disease, stage 4 (severe) Creatinine 4 Months I10 - Essential (primary) hypertension, N18.4 - Chronic kidney disease, stage 4 (severe) Parathyroid Hormone Intact 4 Months I10 - Essential (primary) hypertension, N18.4 - Chronic kidney disease, stage 4 (severe) Coding Level of Care Code Est Pt Level 4 (37417) Diagnoses Primary hypertension I10 Hypertension type: primary hypertension CKD (chronic kidney disease) stage 4, GFR 15-29 ml/min N18.4
[2024-11-15 15:13] VITALS: BP 120/50; PULSE 65; O2SAT 94; BMI 37.3
--- OUTSIDE RECORDS SUMMARY | 2024-11-15 15:40 | XMS_ITS | Encounter Summary ---
Author Organization [facility] Address [address] [place] [address] Phone Care Team Providers Care Barrel Bung Remover And Dumper Name Role Phone Juan Jose Ellington WAISTBAND SETTER LOCKSTITCH Primary Care Provider [phone] Encounter Details Date Type Department Care Team (Late st Contact Info) Description 10/25/2023 Documentation Only [facility] [place], [address] [place] [address] Tatyana Ritchie [address] [place] [address] Social History Tobacco Use Types [...] on filedocumented in this encounter Care Teams Barrel Bung Remover And Dumper Relationship Specialty Start Date End Date Juan Jose Ellington NP [address] [facility] [place] [address] PCP - General 12/25/18 documented as of this encounter
--- OUTSIDE RECORDS SUMMARY | 2024-11-15 15:40 | XMS_ITS | Encounter Summary ---
Author Organization [facility] Address [address] [place] [address] Phone Care Team Providers Care Production Machine Tender Name Role Phone Juan Jose Ellington WIRELINE SUPERVISOR Primary Care Provider [phone] Encounter Details Date Type Department Care Team (Late st Contact Info) Description 03/26/2024 Documentation Only [facility] [place], [address] [place] [address] Tatyana Ritchie [address] [place] [address] Social History Tobacco Use Types [...] on filedocumented in this encounter Care Teams Production Machine Tender Relationship Specialty Start Date End Date Juan Jose Ellington NP [address] [facility] [place] [address] PCP - General 12/25/18 documented as of this encounter
--- OUTSIDE RECORDS SUMMARY | 2024-11-15 15:40 | XMS_ITS | Encounter Summary ---
Author Organization [facility] Address [address] [place] [address] Phone Care Team Providers Care Principal Scientist Name Role Phone Juan Jose Ellington VEGETABLE FARMWORKER Primary Care Provider [phone] Encounter Details Date Type Department Care Team (Late st Contact Info) Description 03/19/2024 Documentation Only [facility] [place], [address] [place] [address] Tatyana Ritchie [address] [place] [address] Social History Tobacco Use Types [...] on filedocumented in this encounter Care Teams Principal Scientist Relationship Specialty Start Date End Date Juan Jose Ellington NP [address] [place] [address] PCP - General 12/25/18 documented as of this encounter
--- OUTSIDE RECORDS SUMMARY | 2024-11-15 15:40 | XMS_ITS | Clinical Summary ---
Author Organization [facility] Address [address] [place] [address] Phone Care Team Providers Care Executive Assistant Name Role Phone Juan Jose Ellington NP Primary Care Provider [phone] Allergies Active Allergy Reactions Criticality Noted Date [...] Ventolin HFA 90 mcg/actuation inhalerIndicati ons:Emphysema, unspecified ([facility] V24, [facility] V28) INHALE 2 PUFFS [...] ions:Chronic obstructive pulmonary disease, unspecified COPD type ([facility] V24, [facility] V28) Take 3 mL [...] Problem Noted Date Diagnosed Date Bipolar disorder ([facility] V24, [facility] V28) 09/21 COPD (chronic obstructive pu lmonary disease) ([facility] V24, [facility] V28) 10/11/2018 Hyperlipidemia 10/11/2018 Hypertension 10/11/2018 Pulmonary nodule 10/11/2018 Overview (04/12/2024): RUL-05/30/18 S/p VATS & wedge resection-no malignancy Sarcoidosis of lung ([facility] V24) 10/11/2018 Encounters Date Type Department Care Team Description 09/11/2024 10:47 AM EDT - 09/11/2024 11:59 PM EDT Hospital Encounter [facility] CT Scan [address] [place] [address] Pulmonary nodule Discharge Disposition: Home or Self Care from Last 3 Months Immunizations Name Administration Dates Next Due Moderna SARS-CoV-2 COVID-19, mRNA, LNP-S, preservative free 05/30/2020,05/02/2020 Surgical History Surgery Date Site/Laterality Comments OTHER SURGICAL HISTORY 04/27/2018 Right PROCEDURE: MO BRNCHSC INCL FLUOR GDNCE DX W/CELL WASHG SPX; COMMENT: negative malignancy TUBAL LIGATION PROCEDURE: HISTORICAL TUBAL LIGATION OTHER SURGICAL HISTORY 05/30/2018 Right PROCEDURE: MO BRONCHOSCOPY W/CPTR-ASST IMAGE-GUIDED NAVIGATION; COMMENT: da Arthur/VATS RUL wedge resection w/extensive pneumolysis OTHER SURGICAL HISTORY PROCEDURE: MO CARDIOVERSION ELECTIVE ARRHYTHMIA EXTERNAL Medical History Medical History Date Comments COPD (chronic obstructive pu lmonary disease) ([facility] V24, [facility] V28) 10/11/2018 DX:COPD (chronic o bstructive pulmonary disease) (HCC) Sarcoidosis of lung ([facility] V24) 10/11/2018 DX:Sarcoidosis of lung (HCC) Pulmonary nodule 10/11/2018 DX:Pulmonary no dule; COMMENT: RUL-05/30/18 S/p VATS & wedge resection-no malignancy Bipolar disorder ([facility] V2 4, [facility] V28) 10/11/2018 DX:Bipolar disorder (HCC) Hypertension 10/11/2018 DX:Hypertension Hyperlipidemia 10/11/2018 DX:Hyperlipidemi a SHARON (acute kidney injury) (C HI/HCC V24) DX:SHARON (acute kidney injury) (HCC) Atrial fibrillation (CMS/HCC V24, [facility] V28) DX:Atrial fibrillation (HCC) Renal disease DX:Renal disease Leukocytosis DX:Leukocytosis [place] nephropathy DX:[place] n ephropathy Mediastinal lymphadenopathy DX:M ediastinal lymphadenopathy Necrotizing granulomatous inflammation of lung ([facility]/HCC V24, [facility] V28) DX:Necrotizing granulomatous inflammation [...] 9:00 AM EDT Office Visit Pulmonology - [place] [address] [place] [address] Sarah Breaux MD [address] [place] [address] Health Maintenance Due Date Last Done Comments [...] Additional history exists Influenza Vaccine (#1) 2024 4, 11/18/2021, 02/20/2021, Additional history exists Pneumococcal Vaccine: [...] Signed Date: 09/13/2024 15:50 ET Workstation ID: [id number] Transcribed By: Self Edit Transcribed Date: 09/13/2024 [...] Signed Date: 09/13/2024 15:50 ET Workstation ID: [id number] Transcribed By: Self Edit Transcribed Date: 09/13/2024 15:48 ET us Sarah Breaux MD IMG CT PROCEDURES Final Result * CT LUNG SCREENING LOW DOSE (06/13/2023 3:45 PM EDT) Anatomical Region Laterality Modality Computed Tomogra phy 06/12/2023 11:3 6 AM EDT Narrative 06/13/2023 3:45 PM EDT [facility] Diagnostic Imaging Department [address] [place] [id number] Patient: NIKKI HURTADO/Age/Sex: 1945 - 77 - F Unit#: [id number] Location/Status: SPDICATLS/REG CLI Mnemonic[facility] Ordering Physician: MULUGETA SU MD [...] Procedure Note Edgard Torres MD - 10/09/2023 [facility] Diagnostic Imaging Department [address] [place] [address] Patient: NIKKI HURTADO /Age/Sex: 1945 - 77 - F Unit#: [id number] Location/Status: SPDICATLS/REG CLI Mnemonic[facility] Ordering Physician: MULUGETA SU MD CT Lung [...] to Health Maintenance Insurance MEDICARE Care Teams Executive Assistant Relationship Specialty Start Date End Date Juan Jose Ellington, JOSIAH [address] [facility] [place] PCP - General 06/26/18
--- OUTSIDE RECORDS SUMMARY | 2024-11-15 15:40 | XMS_ITS | Encounter Summary ---
Author Organization [facility] Address [address] [place] [address] Phone Care Team Providers Care Automatic Glove Former Name Role Phone Juan Jose Ellington MODEL AND DYE PERSON Primary Care Provider [phone] Encounter Details Date Type Department Care Team (Late st Contact Info) Description 10/12/2023 Documentation Only [facility] [place], [address] [place] [address] Tatyana Ritchie [address] [place] [address] Social History Tobacco Use Types [...] on filedocumented in this encounter Care Teams Automatic Glove Former Relationship Specialty Start Date End Date Juan Jose Ellington NP [address] [facility] [place] [address] PCP - General 12/25/18 documented as of this encounter
--- OUTSIDE RECORDS SUMMARY | 2024-11-15 15:40 | XMS_ITS | Encounter Summary ---
Author Organization [facility] Address [address] [place] [address] Phone Care Team Providers Care Engineering Technical Writer Name Role Phone Juan Jose Ellington PICCOLOIST Primary Care Provider [phone] Encounter Details Date Type Department Care Team (Late st Contact Info) Description 10/25/2023 Documentation Only [facility] [place], [address] [place] [address] Tatynaa Ritchie [address] [place] [address] Social History Tobacco Use Types [...] on filedocumented in this encounter Care Teams Engineering Technical Writer Relationship Specialty Start Date End Date Juan Jose Ellington NP 1961 [facility] [place] [address] PCP - General 12/25/18 documented as of this encounter
--- OUTSIDE RECORDS SUMMARY | 2024-11-15 15:40 | XMS_ITS | Encounter Summary ---
Author Organization [facility] Address [address] [place] [address] Phone Care Team Providers Care Security Compliance Engineer Name Role Phone Juan Jose Ellington SHOE REPAIR SUPERVISOR Primary Care Provider [phone] Encounter Details Date Type Department Care Team (Late st Contact Info) Description 10/25/2023 Documentation Only [facility] [place], [address] [place] [address] Tatyana Ritchie [address] [place] [address] Social History Tobacco Use Types [...] on filedocumented in this encounter Care Teams Security Compliance Engineer Relationship Specialty Start Date End Date Juan Jose Ellington NP [address] [facility] [place] [address] PCP - General 12/25/18 documented as of this encounter
--- OUTSIDE RECORDS SUMMARY | 2024-11-15 15:40 | XMS_ITS | Encounter Summary ---
Author Organization [facility] Address [address] [place] [address] Phone Care Team Providers Care Timber Treating Tank Operator Name Role Phone Juan Jose Ellington WASTEWATER PROJECT ENGINEER Primary Care Provider [phone] Encounter Details Date Type Department Care Team (Late st Contact Info) Description 03/19/2024 Documentation Only [facility] [place], [address] [place] [address] Tatyana Ritchie [address] [place] [address] Social History Tobacco Use Types [...] on filedocumented in this encounter Care Teams Timber Treating Tank Operator Relationship Specialty Start Date End Date Juan Jose Ellington NP [address] [facility] [place] [address] PCP - General 12/25/18 documented as of this encounter
--- OUTSIDE RECORDS SUMMARY | 2024-11-15 15:40 | XMS_ITS | Encounter Summary ---
Author Organization [facility] Address [address] [place] [address] Phone Care Team Providers Care Junior Manufacturing Engineer Name Role Phone Juan Jose Ellington SERVICES EXECUTIVE Primary Care Provider [phone] Encounter Details Date Type Department Care Team (Late st Contact Info) Description 09/18/2024 Documentation Only [facility] [place], [address] [place] [address] Tatyana Ritchie [address] [place] [address] Social History Tobacco Use Types [...] on filedocumented in this encounter Care Teams Junior Manufacturing Engineer Relationship Specialty Start Date End Date Juan Jose Ellington NP [address] [facility] [place] [address] PCP - General 12/25/18 documented as of this encounter
--- OUTSIDE RECORDS SUMMARY | 2024-11-15 15:40 | XMS_ITS | Clinical Summary ---
Author Organization [facility] [place], Address [address] [place] [address] [place] [address] Phone Care Team Providers Care Railroad Conductor Name Role Phone Juan Jose Ellington NP Primary Care Provider [phone] Allergies No known active allergies Medications albuterol [...] Only [facility] [place], [address] [place] [address] Tatyana Ritchie from Last 3 Months [...] age to complete this topic Insurance Medicaid [place] Medicare Medicare Medicaid [place] Care Teams Railroad Conductor Relationship Specialty Start Date End Date Juan Jose Ellington NP [address] [facility] [place] [address] PCP - General 12/25/18
== END 2024-11-15 15:22 | disposition home or self-care (01) ==
LOC: HO.HKA 15:02
PROVIDERS: PCP Nurse Practitioner Family; Visit Provider Internal Medicine Nephrology
DX: I12.9 Hypertensive chronic kidney disease with stage 1 through stage 4 chronic kidney disease, or unspecified chronic kidney disease (principal); N18.4 Chronic kidney disease, stage 4 (severe)
CPT/HCPCS: 99214

== ENCOUNTER → 2024-11-15 15:01 | Outpatient (BNVA) | payer MEDICARE, MEDICAID, SELFPAY | PROVIDERS: PCP Nurse Practitioner Family; Visit Provider Internal Medicine Nephrology | DX: N18.4 Chronic kidney disease, stage 4 (severe) (principal); I10 Essential (primary) hypertension | CPT/HCPCS: 99212 ==

== ENCOUNTER → 2024-11-20 11:00 | Outpatient (BNV) | payer MEDICARE, MEDICAID, SELFPAY | PROVIDERS: PCP Nurse Practitioner Family; Visit Provider Radiology Diagnostic Radiology | DX: E28.39 Other primary ovarian failure (principal) | CPT/HCPCS: 77080 ==

== ENCOUNTER 2024-11-20 11:10 | Outpatient (REF) | payer MEDICARE, MEDICAID, SELFPAY ==
--- NOTE | ~2024-11-20 | MM_ITS ---
EXAMINATION: DXA BONE DENSITY AXIAL HISTORY: M85.80 - Other specified disorders of bone density and structure, unspecified... TECHNIQUE: UniYu Dual energy absorptiometry (DEXA) of the lumbar spine, total left hip, and femoral neck was performed. COMPARISON: Comparison is made with the prior examination dated 11/18/2022. FINDINGS: The bone mineral density of the lumbar spine is 1.000 g/cm2, corresponding to a T-score of -1.4, and a Z-score of -0.3. This is indicative of osteopenia. This represents a BMD change of -6.8% compared to the prior exam. This is statistically significant. The bone mineral density of the left total hip is 0.715 g/cm2, corresponding to a T-score of -2.3, and a Z-score of -0.9. This is indicative of osteopenia.- This represents a BMD change of 6.7% compared to the prior exam. This is statistically significant. The bone mineral density of the left femoral neck is 0.667 g/cm2, corresponding to a T-score of -2.7, and a Z-score of -1.1. This is indicative of osteoporosis. This represents a BMD change of -9.5% compared to the prior exam. FRACTURE RISK: The FRAX index suggests a ten year probability of major osteoporotic fracture of 27.9%, and of hip fracture 11.2%. MM/XR DEXA axial skeleton IMPRESSION: Based on bone mineral density, and according to World Health Organization (WHO) criteria, the diagnosis is consistent with osteoporosis. Statistically, 68% of repeat scans fall within 1 SD (+/- 0.010 g/cm2 for AP spine L1-L4) and 1 SD (+/- 0.012 g/cm2 for femur total) FRAX is a trademark of the [employer]'s [place] for Metabolic Bone Disease, a World Health Organization (WHO) Collaborating Center. Electronically signed by: Torrey Santiago MD 11/20/2024 11:42 AM EDT
--- OUTSIDE RECORDS SUMMARY | 2024-11-20 12:46 | XMS_ITS | Clinical Summary ---
Author Organization [facility] [place], Address [address] [place] [address] [place] [address] Phone Care Team Providers Care Plan Rep Name Role Phone Juan Jose Ellington NP Primary Care Provider [phone] Allergies No known active allergies Medications albuterol [...] Only [facility] [place], [address] [place] [address] Tatyana Ritchie from Last 3 Months [...] age to complete this topic Insurance Medicaid [place] Medicare Medicare Medicaid [place] Care Teams Plan Rep Relationship Specialty Start Date End Date Juan Jose Ellington NP [address] [facility] [place] [address] PCP - General 12/25/18
--- OUTSIDE RECORDS SUMMARY | 2024-11-20 12:46 | XMS_ITS | Encounter Summary ---
Author Organization [facility] Address [address] [place] [address] Phone Care Team Providers Care Quiller Hand Name Role Phone Juan Jose Ellington OUTSIDE MACHINIST HELPER Primary Care Provider [phone] Encounter Details Date Type Department Care Team (Late st Contact Info) Description 09/18/2024 Documentation Only [facility] [place], [address] [place] [address] Tatyana Ritchie [address] [place] [address] Social History Tobacco Use Types [...] on filedocumented in this encounter Care Teams Quiller Hand Relationship Specialty Start Date End Date Juan Jose Ellington NP [address] [facility] [place] [address] PCP - General 12/25/18 documented as of this encounter
--- OUTSIDE RECORDS SUMMARY | 2024-11-20 12:46 | XMS_ITS | Encounter Summary ---
Author Organization [facility] Address [address] [place] [address] Phone Care Team Providers Care Adobe Flex Developer Name Role Phone Juan Jose Ellington WHEEL AND PINION INSPECTOR Primary Care Provider Encounter Details Date Type Department Care Team (Late st Contact Info) Description 10/25/2023 Documentation Only [facility] [place], [address] [place] [address] Tatyana Ritchie [address] [place] [address] Social History Tobacco Use Types [...] on filedocumented in this encounter Care Teams Adobe Flex Developer Relationship Specialty Start Date End Date Juan Jose Ellington NP [address] [facility] [place] [address] PCP - General 12/25/18 documented as of this encounter
--- OUTSIDE RECORDS SUMMARY | 2024-11-20 12:46 | XMS_ITS | Encounter Summary ---
Author Organization [facility] Address [address] [place] [address] Phone Care Team Providers Care Park Worker Supervisor Name Role Phone Juan Jose Ellington MANAGER ETL Primary Care Provider [phone] Encounter Details Date Type Department Care Team (Late st Contact Info) Description 10/25/2023 Documentation Only [facility] [place], [address] [place] [address] Tatyana Ritchie [address] [place] [address] Social History Tobacco Use Types [...] on filedocumented in this encounter Care Teams Park Worker Supervisor Relationship Specialty Start Date End Date Juan Jose Ellington NP [address] [facility] [place] [address] PCP - General 12/25/18 documented as of this encounter
--- OUTSIDE RECORDS SUMMARY | 2024-11-20 12:46 | XMS_ITS | Encounter Summary ---
Author Organization [facility] Address [address] [place] [address] Phone Care Team Providers Care Chlorinator Operator Name Role Phone Juan Jose Ellington ENGRAVER COPPERPLATE Primary Care Provider [phone] Encounter Details Date Type Department Care Team (Late st Contact Info) Description 03/19/2024 Documentation Only [facility] [place], [address] [place] [address] Tatyana Ritchie [address] [place] [address] Social History Tobacco Use Types [...] on filedocumented in this encounter Care Teams Chlorinator Operator Relationship Specialty Start Date End Date Juan Jose Ellington NP [address] [facility] [place] [address] PCP - General 12/25/18 documented as of this encounter
--- OUTSIDE RECORDS SUMMARY | 2024-11-20 12:46 | XMS_ITS | Encounter Summary ---
Author Organization [facility] Address [address] [place] [address] Phone Care Team Providers Care Door Trimmer Name Role Phone Juan Jose Ellington FIELD OBSERVER Primary Care Provider [phone] Encounter Details Date Type Department Care Team (Late st Contact Info) Description 03/19/2024 Documentation Only [facility] [place], [address] [place] [address] Tatyana Ritchie [address] [place] [address] Social History Tobacco Use Types [...] on filedocumented in this encounter Care Teams Door Trimmer Relationship Specialty Start Date End Date Juan Jose Ellington NP [address] [facility] [place] [address] PCP - General 12/25/18 documented as of this encounter
--- OUTSIDE RECORDS SUMMARY | 2024-11-20 12:46 | XMS_ITS | Encounter Summary ---
Author Organization [facility] Address [address] [place] [address] Phone Care Team Providers Care Game And Fish Protector Name Role Phone Juan Jose Ellington USER EXPERIENCE RESEARCHER Primary Care Provider [phone] Encounter Details Date Type Department Care Team (Late st Contact Info) Description 03/26/2024 Documentation Only [facility] [place], [address] [place] [address] Tatyana Ritchie [address] [place] [address] Social History Tobacco Use Types [...] on filedocumented in this encounter Care Teams Game And Fish Protector Relationship Specialty Start Date End Date Juan Jose Ellington NP [address] [place] [address] PCP - General 12/25/18 documented as of this encounter
--- OUTSIDE RECORDS SUMMARY | 2024-11-20 12:46 | XMS_ITS | Encounter Summary ---
Author Organization [facility] Address [address] [place] [address] Phone Care Team Providers Care Barber Instructor Name Role Phone Juan Jose Ellington MANAGER RETENTION Primary Care Provider [phone] Encounter Details Date Type Department Care Team (Late st Contact Info) Description 10/12/2023 Documentation Only [facility] [place], [address] [place] [address] Tatyana Ritchie [address] [place] [address] Social History Tobacco Use Types [...] on filedocumented in this encounter Care Teams Barber Instructor Relationship Specialty Start Date End Date Juan Jose Ellington NP [address] [facility] [place] [address] PCP - General 12/25/18 documented as of this encounter
--- OUTSIDE RECORDS SUMMARY | 2024-11-20 12:46 | XMS_ITS | Clinical Summary ---
Author Organization 175 [facility] Address [address] [place] [address] Phone Care Team Providers Care Director Of Athletics Name Role Phone Juan Jose Ellington NP [...] Ventolin HFA 90 mcg/actuation inhalerIndicati ons:Emphysema, unspecified ([facility] V24, [facility] V28) INHALE 2 PUFFS INTO THE LUNGS EVERY 4 HOURS NEEDED FOR COUGH OR WHEEZING FOR UP TO 30 DAYS. 18 each 11 5 Active Oxygen Therapy via Nasal Cannula (O2) gas Inhale 2 L/min by mouth continuously. via nasal canula on exertion 5 Active albuterol 2.5 mg /3 mL (0.083 %) nebulizer solutionIndicat ions:Chronic obstructive pulmonary disease, unspecified COPD type ([facility] V24, [facility] V28) Take 3 mL (2.5 mg [...] Problem Noted Date Diagnosed Date Bipolar disorder ([facility] V24, [facility] V28) 09/21 COPD (chronic obstructive pu lmonary disease) ([facility] V24, [facility] V28) 10/11/2018 Hyperlipidemia 10/11/2018 Hypertension 10/11/2018 Pulmonary nodule 10/11/2018 Overview (04/12/2024): RUL-05/30/18 S/p VATS & wedge resection-no malignancy Sarcoidosis of lung ([facility] V24) 10/11/2018 Encounters Date Type Department Care Team Description 09/11/2024 10:47 AM EDT - 09/11/2024 11:59 PM EDT Hospital Encounter [facility] CT Scan [address] [place] [address] Pulmonary nodule Discharge Disposition: Home or Self Care from Last 3 Months Immunizations Immunization Administration Dates Next Due Moderna SARS-CoV-2 COVID-19, [...] Comments COPD (chronic obstructive pu lmonary disease) ([facility] V24, [facility] V28) 10/11/2018 DX:COPD (chronic o bstructive pulmonary disease) (HCC) Sarcoidosis of lung ([facility] V24) 10/11/2018 DX:Sarcoidosis of lung (HCC) Pulmonary nodule 10/11/2018 DX:Pulmonary no dule; COMMENT: RUL-05/30/18 S/p VATS & wedge resection-no malignancy Bipolar disorder ([facility] V2 4, [facility] V28) 10/11/2018 DX:Bipolar disorder (HCC) Hypertension 10/11/2018 DX:Hypertension Hyperlipidemia 10/11/2018 DX:Hyperlipidemi a SHARON (acute kidney injury) (C PR/HCC V24) DX:SHARON (acute kidney injury) (HCC) Atrial fibrillation (CMS/HCC V24, [facility] V28) DX:Atrial fibrillation (HCC) Renal disease DX:Renal disease Leukocytosis DX:Leukocytosis Coco nephropathy DX:Coco n ephropathy Mediastinal lymphadenopathy DX:M ediastinal lymphadenopathy Necrotizing granulomatous inflammation of lung ([facility]/HCC V24, [facility] V28) DX:Necrotizing granulomatous inflammation of lung [...] 9:00 AM EDT Office Visit Pulmonology - [place] [address] [place] [address] Sarah Breaux MD [address] [place] [address] Health Maintenance Due Date Last Done Comments [...] Signed Date: 09/13/2024 15:50 ET Workstation ID: [id number] Transcribed By: Self Edit Transcribed Date: 09/13/2024 [...] Signed Date: 09/13/2024 15:50 ET Workstation ID: [id number] Transcribed By: Self Edit Transcribed Date: 09/13/2024 15:48 ET us Sarah Breaux MD IMG CT PROCEDURES Final Result * CT LUNG SCREENING LOW DOSE (06/13/2023 3:45 PM EDT) Anatomical Region Laterality Modality Computed Tomogra phy 06/12/2023 11:3 6 AM EDT Narrative 06/13/2023 3:45 PM EDT [facility] Diagnostic Imaging Department [address] [place] [address] Patient: NIKKI HURTADO/Age/Sex: 1945 - 77 - F Unit#: [id number] Location/Status: SPDICATLS/REG CLI Mnemonic[facility] Ordering Physician: MULUGETA SU MD [...] Procedure Note Edgard Torres MD - 10/09/2023 [facility] Diagnostic Imaging Department [address] [place] [address] Patient: NIKKI HURTADO /Age/Sex: 1945 - 77 - F Unit#: [id number] Location/Status: SPDICATLS/REG CLI Mnemonic[facility] Ordering Physician: MULUGETA SU MD CT Lung [...] to Health Maintenance Insurance MEDICARE Care Teams Director Of Athletics Relationship Specialty Start Date End Date Juan Jose Ellington, JOSIAH [address] [facility] [place] PCP - General 06/26/18
--- OUTSIDE RECORDS SUMMARY | 2024-11-20 12:46 | XMS_ITS | Encounter Summary ---
Author Organization [facility] Address [address] [place] [address] Phone Care Team Providers Care Physicist Acoustics Name Role Phone Juan Jose Ellington STAFF DEVELOPMENT COORDINATOR RN Primary Care Provider [phone] Encounter Details Date Type Department Care Team (Late st Contact Info) Description 10/25/2023 Documentation Only [facility] [place], [address] [place] [address] Tatyana Ritchie [address] [place] [address] Social History Tobacco Use Types [...] on filedocumented in this encounter Care Teams Physicist Acoustics Relationship Specialty Start Date End Date Juan Jose Ellington NP [address] [facility] [place] [address] PCP - General 12/25/18 documented as of this encounter
== END 2024-11-20 11:11 | disposition home or self-care (01) ==
LOC: HO.MAMMO 11:10
PROVIDERS: PCP Nurse Practitioner Family; Visit Provider Nurse Practitioner Family
DX: Z13.820 Encounter for screening for osteoporosis (principal); M85.89 Other specified disorders of bone density and structure, multiple sites; M81.0 Age-related osteoporosis without current pathological fracture
CPT/HCPCS: 77080

== ENCOUNTER 2024-11-28 08:27 | Outpatient (AMB) | payer MEDICARE, MEDICAID, SELFPAY ==
[2024-11-28 08:34] VITALS: BP 110/70; PULSE 53; O2SAT 96
--- NOTE | 2024-11-28 08:34 | A.OFFVIS_ITS ---
Vital Signs 11/28/24 08:34 Height 5 ft 1 in BP 110/70 Blood Pressure Location Lt brachial Pulse 53 Pulse Source Pulse Oximeter Pulse Oximetry (%) 96 Oxygen Delivery Method Room Air Intake Visit Reasons: 6 months F/U Intake Note: Patient presents follow up TD Hydraulic Governor Assembler Required: No Allergies Sulfa (Sulfonamide Antibiotics) (SULFA (SULFONAMIDE ANTIBIOTICS)) Allergy (Severe, Verified 11/28/24 08:39) RASH, Anaphylaxis Medication List - Last Reconciled 11/28/24 by BRENTON Hannon acetaminophen 325 mg PO QID PRN 7 days albuterol sulfate 90 mcg/actuation (Ventolin HFA) 2 puffs inhalation Q6H PRN amiodarone 100 mg (1/2 x 200 mg) PO DAILY apixaban (Eliquis) 5 mg PO BID carbidopa-levodopa 25-100 mg ER 1 tab PO BID 30 days cephalexin 500 mg PO TID 5 days cholecalciferol (vitamin D3) 50 mcg PO DAILY cranberry 1,000 mg PO DAILY [disposable bed pads As directed, uses 6 per day] [disposable gloves As directed, uses 8 per day to provide incontinence care] [disposable incontinence wipes As directed, uses 10 per day to provide incontinence care] [disposable pull up briefs As directed, uses 8 per day] fesoterodine ER (Toviaz) 4 mg PO DAILY 30 days qiyngpzwvix-frjzdlckw-dmrwgeek 100-62.5-25 mcg (Trelegy Ellipta) 1 ea inhalation DAILY furosemide 20 mg PO Q OTHER DAY hydroxyzine HCl 10 mg PO DAILY PRN lamotrigine 50 mg PO BEDTIME metoprolol succinate ER 50 mg (2 x 25 mg) PO DAILY nitrofurantoin macrocrystal 50 mg PO DAILY Held on 11/11/24. Instructions: Doctor's Order olanzapine 7.5 mg PO BEDTIME prednisone 20 mg PO DAILY simvastatin 20 mg PO BEDTIME walker Standard walker, no wheels [washable bed pads As directed] HPI Comments Details: 79-yr-old female presents for f/u visit. Pt is accompanied by her dtr. Patient denies any interval medical history changes. She continues to have BUE symmetric tremor.- someday worse than others. Fevers with cause her legs to be shaky and weak. Sometimes she mumbles and can sometimes lose her voice- also d/t increased phlegm r/t her COPD. Family notices oral movements- pt does not notice this. She still may make a vocal noise- pt is unaware of this. Sometimes dtr notice right eye closing. Denies interval falls. She is prone to shuffling. She now walks with a walker and with someone. She is forgetful. She repeats herself. She denies hyposmia, drooling, constipation. Dtr endorses some sleep talking, but denies punching/kicking. Previously tried CD-LD 25-100mg- 1/2 tab caused dyskinesias. [facility] Medical History Paroxysmal atrial fibrillation Emphysema of lung Tardive dyskinesia Coarse tremors Hypersomnia Snoring SHARON (acute kidney injury) Mediastinal lymphadenopathy Atrial fibrillation Dyslipidemia Kidney disease Leukocytosis Necrotizing granulomatous inflammation of lung Bipolar 1 disorder Vitamin D deficiency COPD (chronic obstructive pulmonary disease) Sarcoidosis HTN (hypertension) [place] nephropathy Surgical History History of cardioversion History of bronchoscopy Family History Child No Financial Resp No problems noted. 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 Expression: Decreased expression and blink Voice: Soft/hoarse Tremor: No rest tremor. Bilateral postural tremor, Mild bilateral postural tremor. Tone: Mild BUE tone Dyskinesia: Mild lingual-buccal movements. FFM: Mildly decreased Foot taps: Mildly decreased Gait: Sitting in wheelchair with upright posture. Stands easily, decreased arm swing, short steps, with low florr clearance, steady turn today. Psych: Pleasant affect Assessment & Plan Assessment & Plan (1) Tardive dyskinesia: Comment: Mild Code(s): G24.01 - Drug induced subacute dyskinesia Category: Medical (2) Coarse tremors: Comment: tremors are likely related to exposure to lithium, amiodarone and olanzapine, ? tardive tremors, tardive parkinsonism. she does have some extrapyramidal features. 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 Code(s): G25.2 - Other specified forms of tremor Category: Medical (3) Gait disorder: Comment: ? neuroleptic PDism Code(s): R26.9 - Unspecified abnormalities of gait and mobility Category: Medical Plan For PDism and TD: Discussed that treatment of neuroleptic induced secondary parkinsonism versus idiopathic Parkinson's disease is symptomatic and not curative, however treating motor symptoms can help patient's overall health and quality of life, as improving mobility can have positive effects on cardiovascular and metabolic health, mood, and sleep. Start carbidopa levodopa ER 25-100 mg 1 tab twice a day, taken with a cracker 30 minutes before breakfast and dinner. * This may help stiffness, gait and bradyphrenia. Advised this may not have significant effect on her tremor. * Advised to monitor for potential side effects such as increased dyskinesia, GI upset, lightheadedness, hallucinations. * Advised to notify us with any untoward effects. * If mobility begins to improve with starting carbidopa levodopa ER therapy, we can consider requesting [place] outpatient PT again Metoprolol may be helping tremor- continue per cardiology. Information shared on the International tremor association website, which has updated list of adaptive equipment to help with common ADLs. Continue to monitor TD and PDism s/s. Continue to use walker, and wheelchair for longer distances. Previous trials- CD-LD 25-100mg 1/2 tab bid- caused dyskinesias. Contraindications- would avoid Ingreza/Austedo d/t a-fib dx. Future considerations- trial of Rytary or Crexont or low-dose dopamine agonist. Follow-up in 6 months or sooner as needed Medications: New carbidopa-levodopa 25-100 mg ER 30 minutes a meal (but may take with a cracker) 1 tab PO BID 60 tabs 3RF 30 days Coding Level of Care Code Est Pt Level 4 (06081) Diagnoses Tardive dyskinesia G24.01 Coarse tremors G25.2 Gait disorder R26.9
== END 2024-11-28 10:18 | disposition home or self-care (01) ==
LOC: HO.HSMS 08:28
PROVIDERS: Visit Provider Nurse Practitioner Family
DX: G24.01 Drug induced subacute dyskinesia (principal); G25.2 Other specified forms of tremor; R26.9 Unspecified abnormalities of gait and mobility
CPT/HCPCS: 99214

== ENCOUNTER → 2024-11-28 08:27 | Outpatient (BNVA) | payer MEDICARE, MEDICAID, SELFPAY | PROVIDERS: Visit Provider Nurse Practitioner Family | DX: G24.01 Drug induced subacute dyskinesia (principal); G25.2 Other specified forms of tremor; R26.9 Unspecified abnormalities of gait and mobility | CPT/HCPCS: 99212 ==

== ENCOUNTER 2024-12-03 12:55 | Outpatient (REF) | payer MEDICARE, MEDICAID, SELFPAY ==
--- NOTE | 2024-12-03 13:27 | MHC.AU.HA3 ---
Hearing Instrument Follow-Up- Binaural Date of Visit: 12/03/24 Right Ear: Spike, Model, Color, Serial Number: Oticon Intent 2 miniRITE-R SN: [id number] Color: Silver Crew Leader Gluing Repair Warranty: 10/24/2026 Crew Leader Gluing Loss and Damage Warranty: 10/24/2026 [facility] Service Plan: 10/11/2024 Battery Size: Rechargeable Mechanical Spreader Operator/Slim Tube: 3/85 Earmold/Dome/CShell/SlimTip:8mm double fuentes dome (no retention tail) Type of Wax Guard: miniFitg Dispensed By: [facility] Date of Fittin10/12/2023 Left Ear: Spike, Model, Color, Serial Number: Oticon Intent 2 miniRITE-R SN: [id number] Color: Silver Crew Leader Gluing Repair Warranty: 10/24/2026 Crew Leader Gluing Loss and Damage Warranty: 10/24/2026 [facility] Service Plan: 10/11/2024 Battery Size: Rechargeable Mechanical Spreader Operator/Slim Tube: 3/85 Earmold/Dome/CShell/SlimTip: 8mm double fuentes dome (no retention tail) Type of Wax Guard: miniFit Dispensed By: [facility] Date of Fittin10/12/2023 Follow-Up Summary: Accompanied by daughter, Tatyana. Routine maintenance. Cleaned HAs (2). Replaced domes (2). Replaced wax guards (2). 17599 x6. Vacuumed microphones. Ran through dehumidifier. Listening check demonstrated HAs amplifying clearly. Connected to [employer]. Recommendations: Hearing instrument follow-up or maintenance as needed. Please contact our clinic with any questions or concerns. Diagnosis Code(s): Primary Diagnosis: H90.3 Bilateral Sensorineural Hearing Loss Signature: Provider: Rodo Romero, [facility]
--- OUTSIDE RECORDS SUMMARY | 2024-12-03 15:37 | XMS_ITS | Encounter Summary ---
Author Organization [facility] Address [address] [place] [address] Phone Care Team Providers Care Air Support Control Officer Name Role Phone Juan Jose Ellington EMPLOYMENT AGENCY MANAGER Primary Care Provider [phone] Encounter Details Date Type Department Care Team (Late st Contact Info) Description 09/18/2024 Documentation Only [facility] [place], [address] [place] [address] Tatyana Ritchie [address] [place] [address] Social History Tobacco Use Types [...] on filedocumented in this encounter Care Teams Air Support Control Officer Relationship Specialty Start Date End Date Juan Jose Ellington NP [address] [place] [address] PCP - General 12/25/18 documented as of this encounter
--- OUTSIDE RECORDS SUMMARY | 2024-12-03 15:37 | XMS_ITS | Encounter Summary ---
Author Organization [facility] Address [address] [place] [address] Phone Care Team Providers Care Angle Shear Operator Name Role Phone Juan Jose Ellington CREDIT CARD ANALYST Primary Care Provider [phone] Encounter Details Date Type Department Care Team (Late st Contact Info) Description 03/19/2024 Documentation Only [facility] [place], [address] [place] [address] Tatyana Ritchie [address] [place] [address] Social History Tobacco Use Types [...] on filedocumented in this encounter Care Teams Angle Shear Operator Relationship Specialty Start Date End Date Juan Jose Ellington NP [address] [place] [address] PCP - General 12/25/18 documented as of this encounter
--- OUTSIDE RECORDS SUMMARY | 2024-12-03 15:37 | XMS_ITS | Encounter Summary ---
Author Organization [facility] Address [address] [place] [address] Phone Care Team Providers Care Hazmat Truck Driver Name Role Phone Juan Jose Ellington BILLING DEPARTMENT SUPERVISOR Primary Care Provider [phone] Encounter Details Date Type Department Care Team (Late st Contact Info) Description 03/19/2024 Documentation Only [facility] [place], [address] [place] [address] Tatyana Ritchie [address] [place] [address] Social History Tobacco Use Types [...] on filedocumented in this encounter Care Teams Hazmat Truck Driver Relationship Specialty Start Date End Date Juan Jose Ellington NP [address] [place] [address] PCP - General 12/25/18 documented as of this encounter
--- OUTSIDE RECORDS SUMMARY | 2024-12-03 15:38 | XMS_ITS | Encounter Summary ---
Author Organization [facility] Address [address] [place] [address] Phone Care Team Providers Care Help Desk Intern Name Role Phone Juan Jose Ellington SHIFT SUPERINTENDENT CAUSTIC CRESYLATE Primary Care Provider [phone] Encounter Details Date Type Department Care Team (Late st Contact Info) Description 10/12/2023 Documentation Only [facility] [place], [address] [place] [address] Tatyana Ritchie [address] [place] [address] Social History Tobacco Use [...] on filedocumented in this encounter Care Teams Help Desk Intern Relationship Specialty Start Date End Date Juan Jose Ellington NP [address] [facility] [place] [address] PCP - General 12/25/18 documented as of this encounter
--- OUTSIDE RECORDS SUMMARY | 2024-12-03 15:38 | XMS_ITS | Encounter Summary ---
Author Organization [facility] Address [address] [place] [address] Phone Care Team Providers Care Tomato Paste Maker Name Role Phone Juan Jose Ellington SHOT HOLE SHOOTER Primary Care Provider [phone] Encounter Details Date Type Department Care Team (Late st Contact Info) Description 10/25/2023 Documentation Only [facility] [place], [address] [place] [address] Tatyana Ritchie [address] [place] [address] Social History Tobacco Use Types [...] on filedocumented in this encounter Care Teams Tomato Paste Maker Relationship Specialty Start Date End Date Juan Jose Ellington NP [address] [facility] [place] [address] PCP - General 12/25/18 documented as of this encounter
--- OUTSIDE RECORDS SUMMARY | 2024-12-03 15:38 | XMS_ITS | Encounter Summary ---
Author Organization [facility] Address [address] [place] [address] Phone Care Team Providers Care Lab Tech Name Role Phone Juan Jose Ellington ORCHESTRA LEADER Primary Care Provider [phone] Encounter Details Date Type Department Care Team (Late st Contact Info) Description 10/25/2023 Documentation Only [facility] [place], [address] [place] [address] Tatyana Ritchie [address] [place] [address] Social History Tobacco Use Types [...] on filedocumented in this encounter Care Teams Lab Tech Relationship Specialty Start Date End Date Juan Jose Ellington NP [address] [facility] [place] [address] PCP - General 12/25/18 documented as of this encounter
--- OUTSIDE RECORDS SUMMARY | 2024-12-03 15:38 | XMS_ITS | Encounter Summary ---
Author Organization [facility] Address [address] [place] [address] Phone Care Team Providers Care Product Safety Test Engineer Name Role Phone Juan Jose Ellington FUMIGATOR AND STERILIZER Primary Care Provider [phone] Encounter Details Date Type Department Care Team (Late st Contact Info) Description 03/26/2024 Documentation Only [facility] [place], [address] [place] [address] Tatyana Ritchie [address] [place] [address] Social History Tobacco Use Types [...] on filedocumented in this encounter Care Teams Product Safety Test Engineer Relationship Specialty Start Date End Date Juan Jose Ellington NP [address] [place] [address] PCP - General 12/25/18 documented as of this encounter
--- OUTSIDE RECORDS SUMMARY | 2024-12-03 15:38 | XMS_ITS | Encounter Summary ---
Author Organization [facility] Address [address] [place] [address] Phone Care Team Providers Care Court Collections Officer Name Role Phone Juan Jose Ellington NICKEL PLATER Primary Care Provider [phone] Encounter Details Date Type Department Care Team (Late st Contact Info) Description 10/25/2023 Documentation Only [facility] [place], [address] [place] [address] Tatyana Ritchie [address] [place] [address] Social History Tobacco Use Types [...] on filedocumented in this encounter Care Teams Court Collections Officer Relationship Specialty Start Date End Date Juan Jose Ellington NP [address] [facility] [place] [address] PCP - General 12/25/18 documented as of this encounter
--- OUTSIDE RECORDS SUMMARY | 2024-12-03 15:38 | XMS_ITS | Clinical Summary ---
Author Organization [facility], Address [address] [place] [address] [place] [address] Phone Care Team Providers Care Linoleum Tile Floor Layer Name Role Phone Juan Jose Ellington NP Primary Care Provider [phone] Allergies No known active allergies Medications albuterol [...] Only [facility], [address] [place] [address] Tatyana Ritchie from Last 3 Months [...] age to complete this topic Insurance Medicaid [place] Medicare Medicare Medicaid [place] Care Teams Linoleum Tile Floor Layer Relationship Specialty Start Date End Date Juan Jose Ellington NP [address] [place] [address] PCP - General 12/25/18
== END 2024-12-03 12:56 | disposition home or self-care (01) ==
LOC: HO.HAP 12:55
PROVIDERS: Visit Provider Nurse Practitioner Family
DX: Z46.1 Encounter for fitting and adjustment of hearing aid (principal); H90.3 Sensorineural hearing loss, bilateral
CPT/HCPCS: 92593; 99499

== ENCOUNTER 2024-12-05 13:01 | Outpatient (REF) | payer MEDICARE, MEDICAID, SELFPAY ==
--- NOTE | ~2024-12-05 | XR_ITS ---
EXAMINATION: XR CHEST CLINICAL INFORMATION: R05.9 - Cough, unspecified COMPARISON: X-ray 04/11/2024 TECHNIQUE: 2 views of the chest were obtained. FINDINGS: Cardiomediastinal silhouette is stable. Aortic arch calcification. Linear atelectasis/scarring in the right mid lung, unchanged from previous. Bibasilar hazy opacity could reflect atelectasis or infiltrate. No dense consolidation otherwise. No effusion. No pneumothorax seen. Upper abdomen appears unremarkable. No acute osseous findings. XR/XR chest 2V IMPRESSION: Bibasilar hazy opacities could reflect atelectasis or infiltrate. Electronically signed by: Nghia Rodriguez MD 12/05/2024 03:34 PM EDT
[2024-12-06 08:24] LABS: Chlamydia pneumoniae PCR Not Detected (Not Detect.); Coronavirus 229E PCR Not Detected (Not Detect.); Coronavirus HKU1 PCR Not Detected (Not Detect.); Coronavirus NL63 PCR Not Detected (Not Detect.); Coronavirus OC43 PCR Not Detected (Not Detect.); RSV PCR Not Detected (Not Detect.); Rhino/Enterovirus PCR Detected (Not Detect.)
[2024-12-06 09:37] LABS: Influenza A H1 PCR Not Detected (Not Detect.); Influenza A H1-2009 PCR Not Detected (Not Detect.); Influenza A H3 PCR Not Detected (Not Detect.); SARS-CoV-2 PCR Not Detected (Not Detect.)
== END 2024-12-05 13:02 | disposition home or self-care (01) ==
LOC: HO.HMGCX 13:01
PROVIDERS: PCP Nurse Practitioner Family; Visit Provider Physician Assistant Medical
DX: R09.81 Nasal congestion (principal); R05.9 Cough, unspecified; R06.02 Shortness of breath
CPT/HCPCS: 71046; 87633; 99212

== ENCOUNTER 2024-12-05 13:01 | Outpatient (AMB) | payer MEDICARE, MEDICAID, SELFPAY ==
--- NOTE | 2024-12-05 13:12 | MHC.OFFWIV ---
Intake Vital Signs 12/05/24 13:13 Height 5 ft 1 in BMI Reason not done Patient refused/unable BP 124/76 Blood Pressure Location Lt brachial Position Sitting Respiration 20 Pulse 59 Pulse Source Pulse Oximeter Temp 98.6 F Temp Source Oral Pulse Oximetry (%) 94 Oxygen Delivery Method Room Air Intake Visit Reasons: ep hard time breathing congestion Intake Note: Pt ambulate with guarding from her daughter to triage corner. Pt is alert, c/o cough, shortness of breath x 1 week with taking updraft, inhaler and decongestion. Pt takes medication Furosemide (daughter could not remember the dose) 3 times per week. No swelling noted in bilateral lower ankles. Pt under eyes are puffy especially under the left eye. Lungs - bilateral upper extremities exp. wheezing and bilateral lower extremities insp and exp wheezing. Pt has stage 4 kidney disease per daughter and she also stated that some of the pt's medications mimick the [place] symptoms. Pt c/o of a red rash to bilateral under breast. Pt is roomed to 9. Delaney Powell PA-C aware. Patient Tobacco Use Status: Former Tobacco user Allergies Sulfa (Sulfonamide Antibiotics) (SULFA (SULFONAMIDE ANTIBIOTICS)) Allergy (Severe, Verified 12/05/24 13:15) RASH, Anaphylaxis Do you need a note to return to daycare/school/sports/work: No HPI HPI Comments History of Present Illness Details History - The patient is a 79-year-old female presenting with her daughter for congestion and a persistent cough. - The cough has been present for about a week without fever or production of green or white sputum. - The patient has a history of Chronic Obstructive Pulmonary Disease (COPD) and is on oxygen therapy and inhalers. - She experiences shortness of breath, which is a chronic issue due to COPD. - The patient has a history of congestive heart failure, complicating the differentiation of symptoms. - Previous episodes of similar symptoms have led to hospitalization, often requiring antibiotics and extended prednisone therapy. - The patient had a past episode of double pneumonia, which is a concern for recurrence. - Current medications include prednisone, inhalers, nebulizer, and Trilogy. - She denies fever, chills, CP, SOB, abd pain, n/v/d, sore throat, or ear pain. Physical Exam General: Cooperative, healthy appearing, comfortable and no acute distress Orientation/consciousness: Patient oriented x3 Limitations: No limitations Head: Normal to inspection Ears: Hearing grossly normal bilaterally, external ears normal and TM's normal bilaterally Nose: Normal external nose present, normal nares present, and no nasal discharge present. Face and sinus: Sinuses nontender to palpation. Mouth: Normal oral and palatal mucosa present and moist mucous membranes noted. Throat: Tonsils normal. Uvula is midline. Posterior oropharynx with erythema and no exudates. Eyes: Appearance normal, both eyes and all related structures Neck: Normal visual inspection, full ROM. No lymphadenopathy noted. Respiratory: Wheezing noted. Normal respiratory effort, able to speak in complete sentences. No respiratory distress, not tachypneic, no tripod positioning and no use of accessory muscles. Cardiovascular: Regular rate and rhythm. Normal S1 and S2 Skin: No rashes or lesions noted. Patient was informed and verbally consented to the use of an ambient scribe for clinic note documentation during this visit [facility] Medical History Paroxysmal atrial fibrillation Emphysema of lung Tardive dyskinesia Coarse tremors Hypersomnia Snoring SHARON (acute kidney injury) Mediastinal lymphadenopathy Atrial fibrillation Dyslipidemia Kidney disease Leukocytosis Necrotizing granulomatous inflammation of lung Bipolar 1 disorder Vitamin D deficiency COPD (chronic obstructive pulmonary disease) Sarcoidosis HTN (hypertension) Schulter nephropathy Surgical History History of cardioversion History of bronchoscopy Family History Child No Financial Resp No problems noted. 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 Current occupational exposures/hazards: No Cognitive needs: No Hearing needs: No Vision needs: Yes Review of Systems Const All systems reviewed & are unremarkable except as noted in HPI and below Physical Exam Vital Signs: Last Vital Signs Temp 98.6 F 12/05/24 13:13 Pulse 59 12/05/24 13:13 Resp 20 12/05/24 13:13 BP 124/76 12/05/24 13:13 Pulse Ox 94 12/05/24 13:13 Oxygen Delivery Method Room Air 12/05/24 13:13 Assessment & Plan Assessment & Plan (1) URI with cough and congestion: Code(s): J06.9 - Acute upper respiratory infection, unspecified Plan Most likely COPD exacerbation vs URI vs flu vs RSV vs CAP vs viral illness plan - Continue current medications including inhalers and nebulizer therapy. - Initiate antibiotic therapy with Z-Sly, and consider Augmentin or doxycycline if pneumonia is confirmed. - Obtain chest x-ray to confirm diagnosis and adjust treatment accordingly. - Conduct respiratory panel to rule out viral infections such as COVID-19, RSV, and influenza. - Continue with prednisone as prescribed - will call with the results - follow up with PCP Orders: [place] Resp Pathogen [place] [facility] [place] Medina Lindsey PA-C J06.9 - Acute upper respiratory infection, unspecified XR chest 2V Today Medina Lindsey PA-C R05.9 - Cough, unspecified Medications: New azithromycin For 250 mg dose pack: take 500 mg today (day 1), then 250 mg for 4 days (days 2-5) PO 6 tabs 0RF Medina Lindsey PA-C Resumed nitrofurantoin macrocrystal 50 mg PO DAILY 30 caps 5RF Diane Hauser MD N39.0 - Urinary tract infection, site not specified Coding Level of Care Code Est Pt Level 4 (56446) Diagnoses URI with cough and congestion J06.9
[2024-12-05 13:13] VITALS: BP 124/76; PULSE 59; RESP 20; TEMP 37; O2SAT 94
--- OUTSIDE RECORDS SUMMARY | 2024-12-05 16:12 | XMS_ITS | Encounter Summary ---
Author Organization [facility] Address [address] [place] [address] Phone Care Team Providers Care Hydraulic Governor Assembler Name Role Phone Juan Jose Ellington BENCH MOLDER Primary Care Provider [phone] Encounter Details Date Type Department Care Team (Late st Contact Info) Description 03/19/2024 Documentation Only [facility], [address] [place] [address] Tatyana Ritchie [address] [place] [address] Social History Tobacco Use Types [...] on filedocumented in this encounter Care Teams Hydraulic Governor Assembler Relationship Specialty Start Date End Date Juan Jose Ellington NP [address] [facility] [place] [place] [address] PCP - General 12/25/18 documented as of this encounter
--- OUTSIDE RECORDS SUMMARY | 2024-12-05 16:12 | XMS_ITS | Clinical Summary ---
Author Organization [address] [facility] Address [address] [place] [address] Phone Care Team Providers Care Business Ethics Professor Name Role Phone Juan Jose Ellington NP Primary Care Provider Allergies Active Allergy Reactions Criticality Noted Date Comments Sulfa (Sulfonamide Antibiotics) 07/25/2018 No reaction documented. Medications Trelegy Ellipta 100-62.5-25 mcg inhaler INHALE 1 PUFF INTO THE LUNGS DAILY FOR 30 DAYS. 60 each 11 01/04/20 24 Active acetaminophen (TYLENOL) 325 mg capsule Take by mouth. Acti ve HYDROXYZINE HCL ORAL Take 10 mg by mouth daily. Active melatonin 10 mg tablet Melatonin 10 MG TABLET DISPERSIBLE Patient sig: Take by mouth. Active multivitamin/i rhea/folic acid (CENTRUM ORAL) Take by mouth. Active [...] Active metoprolol succinate (Kapspargo Sprinkle) 25 mg capsule,sprink le,ER 24hr Take by mouth. Acti ve OLANZapine (ZyPREXA) 7.5 mg tablet Take 7.5 mg by mouth at bedtime. Active simvastatin (ZOCOR) 20 mg tablet Take 20 mg by mouth at bedtime. Active Ventolin HFA 90 mcg/actuation inhalerIndicat ions:Emphysema , unspecified ([facility] V24, [facility] V28) INHALE 2 PUFFS INTO THE LUNGS EVERY 4 HOURS NEEDED FOR COUGH OR WHEEZING FOR UP TO 30 DAYS. 18 each 04/16/19 25 Active Oxygen Therapy via Nasal Cannula (O2) gas Inhale 2 L/min by mouth continuously. via nasal canula on exertion 04/11/19 25 Active albuterol 2.5 mg /3 mL (0.083 %) nebulizer solutionIndica tions:Chronic obstructive pulmonary disease, unspecified COPD type ([facility] V24, [facility] V28) Take 3 mL (2.5 mg total) by nebulization every 6 (six) hours if needed for wheezing. 300 mL 2 05/04/19 25 026 Active predniSONE (DELTASONE) 20 mg tablet 2 tab po qd x 1 and then 1 tab po qd x 6 days 8 each 08/30/19 25 Active predniSONE (DELTASONE) 10 mg tabletIndicati ons:Chronic obstructive pulmonary disease, unspecified COPD type ([facility] V24, [facility] V28) TAKE 1 TABLET BY MOUTH 1 TIME EACH DAY. 30 tablet 1 11/21/19 25 Active predniSONE (DELTASONE) 10 mg tablet Take 1 tablet (10 mg total) by mouth 1 (one) time each day. 30 each 1 10/01/19 25 025 Discontinued Active Problems Problem Noted Date Diagnosed Date Bipolar disorder ([facility] V24, [facility] V28) 09/21 COPD (chronic obstructive pu lmonary disease) ([facility] V24, [facility] V28) 10/11/2018 Hyperlipidemia 10/11/2018 Hypertension 10/11/2018 Pulmonary nodule 10/11/2018 Overview (04/12/2024): RUL-05/30/18 S/p VATS & wedge resection-no malignancy Sarcoidosis of lung ([facility] V24) 10/11/2018 Encounters Date Type Department Care Team Description 09/11/2024 10:47 AM EDT - 09/11/2024 11:59 PM EDT Hospital Encounter [facility] CT Scan [address] [place] [address] Pulmonary nodule Discharge Disposition: Home or Self Care from Last 3 Months Immunizations Immunization Administration Dates Next Due Moderna SARS-CoV-2 COVID-19, mRNA, LNP-S, preservative free 05/30/2020,05/02/2020 Surgical History Surgery Date Site/Laterality Comments OTHER SURGICAL HISTORY 04/27/2018 Right PROCEDURE: CO BRNCHSC INCL FLUOR GDNCE DX W/CELL WASHG SPX; COMMENT: negative malignancy TUBAL LIGATION PROCEDURE: HISTORICAL TUBAL LIGATION OTHER SURGICAL HISTORY 05/30/2018 Right PROCEDURE: CO BRONCHOSCOPY W/CPTR-ASST IMAGE-GUIDED NAVIGATION; COMMENT: da Arthur/VATS RUL wedge resection w/extensive pneumolysis OTHER SURGICAL HISTORY PROCEDURE: CO CARDIOVERSION ELECTIVE ARRHYTHMIA EXTERNAL Medical History Medical History Date Comments COPD (chronic obstructive pu lmonary disease) ([facility] V24, [facility] V28) 10/11/2018 DX:COPD (chronic o bstructive pulmonary disease) (HCC) Sarcoidosis of lung ([facility] V24) 10/11/2018 DX:Sarcoidosis of lung (HCC) Pulmonary nodule 10/11/2018 DX:Pulmonary no dule; COMMENT: RUL-05/30/18 S/p VATS & wedge resection-no malignancy Bipolar disorder ([facility]/HCC V2 4, [facility] V28) 10/11/2018 DX:Bipolar disorder (HCC) Hypertension 10/11/2018 DX:Hypertension Hyperlipidemia 10/11/2018 DX:Hyperlipidemi a SHARON (acute kidney injury) ([facility] [place]/HCC V24) DX:SHARON (acute kidney injury) (HCC) Atrial fibrillation ([facility]/HCC V24, [facility] V28) DX:Atrial fibrillation (HCC) Renal disease DX:Renal disease Leukocytosis DX:Leukocytosis Ventress nephropathy DX:Ventress n ephropathy Mediastinal lymphadenopathy DX:M ediastinal lymphadenopathy Necrotizing granulomatous inflammation of lung ([facility]/HCC V24, [facility]/HCC V28) DX:Necrotizing granulomatous inflammation of lung (HCC) [...] 9:00 AM EDT Office Visit Pulmonology - [place] [address] [facility] [address] [place] [id number] Sarah Breaux MD [address] [facility] [address] [place] [address] Health Maintenance Due Date Last Done Comments [...] Signed Date: 09/13/2024 15:50 ET Workstation ID: [id number] Transcribed By: Self Edit Transcribed Date: 09/13/2024 [...] Signed Date: 09/13/2024 15:50 ET Workstation ID: [id number] Transcribed By: Self Edit Transcribed Date: 09/13/2024 15:48 ET us Sarah Breaux MD IM CT PROCEDURES Final Result * CT LUNG SCREENING LOW DOSE (06/13/2023 3:45 PM EDT) Anatomical Region Laterality Modality Computed Tomogra phy 06/12/2023 11:3 6 AM EDT Narrative 06/13/2023 3:45 PM EDT [facility] Diagnostic Imaging Department [address] [place] [id number] Patient: NIKKI HURTADO /Age/Sex: 1945 - 77 - F Unit#: [id number] Location/Status: SPDICATLS/REG CLI Mnemonic/Ordering Site: [facility] Ordering Physician: MULUGETA SU MD CT Lung [...] [facility] Diagnostic Imaging Department [address] [place] [address] Patient: NIKKI HURTADO Jory /Age/Sex: 1945 - 77 - F Unit#: [id number] Location/Status: [facility] CLI Mnemonic/Ordering Site[facility] Ordering Physician: MULUGETA SU MD [...] Insurance MEDICARE [place]ICAID [place] Care Teams Business Ethics Professor Relationship Specialty Start Date End Date Juan Jose Ellington NP [address] [place], [place] PCP - General 06/26/18
--- OUTSIDE RECORDS SUMMARY | 2024-12-05 16:12 | XMS_ITS | Encounter Summary ---
Author Organization [facility] Address [address] [place] [address] Phone Care Team Providers Care Administrative Support Assoc Name Role Phone Juan Jose Ellington CAMERA ENGINEER Primary Care Provider [phone] Encounter Details Date Type Department Care Team (Late st Contact Info) Description 09/18/2024 Documentation Only [facility] [place], [address] [place] [address] Tatyana Ritchie [address] [place] [address] Social History Tobacco Use Types [...] on filedocumented in this encounter Care Teams Administrative Support Assoc Relationship Specialty Start Date End Date Juan Jose Ellington NP [address] [facility] [place] [address] PCP - General 12/25/18 documented as of this encounter
--- OUTSIDE RECORDS SUMMARY | 2024-12-05 16:13 | XMS_ITS | Encounter Summary ---
Author Organization [facility] Address [address] [place] [address] Phone Care Team Providers Care International First Officer Name Role Phone Juan Jose Ellington BALANCE ASSEMBLER Primary Care Provider [phone] Encounter Details Date Type Department Care Team (Late st Contact Info) Description 03/26/2024 Documentation Only [facility] [place], [address] [place] [address] Tatyana Ritchie [address] [place] [address] Social History Tobacco Use Types [...] on filedocumented in this encounter Care Teams International First Officer Relationship Specialty Start Date End Date Juan Jose Ellington NP [address] [facility] [place] [address] PCP - General 12/25/18 documented as of this encounter
--- OUTSIDE RECORDS SUMMARY | 2024-12-05 16:13 | XMS_ITS | Encounter Summary ---
Author Organization [facility] Address [address] [place] [address] Phone Care Team Providers Care Biodiesel Technology Manager Name Role Phone Juan Jose Ellington HOTEL OPERATION MANAGER Primary Care Provider [phone] Encounter Details Date Type Department Care Team (Late st Contact Info) Description 10/12/2023 Documentation Only [facility] [place], [address] [place] [address] Tatyana Ritchie [address] [place] [address] Social History Tobacco Use Types [...] on filedocumented in this encounter Care Teams Biodiesel Technology Manager Relationship Specialty Start Date End Date Juan Jose Ellington NP [address] [facility] [place] [address] PCP - General 12/25/18 documented as of this encounter
--- OUTSIDE RECORDS SUMMARY | 2024-12-05 16:13 | XMS_ITS | Encounter Summary ---
Author Organization [facility] Address [address] [place] [address] Phone Care Team Providers Care Whistle Punk Name Role Phone Juan Jose Ellington HR ADVISOR Primary Care Provider [phone] Encounter Details Date Type Department Care Team (Late st Contact Info) Description 03/19/2024 Documentation Only [facility] [place], [address] [place] [address] Tatyana Ritchie [address] [place] [address] Social History Tobacco Use Types [...] on filedocumented in this encounter Care Teams Whistle Punk Relationship Specialty Start Date End Date Juan Jose Ellington NP [address] [facility] [place] [address] PCP - General 12/25/18 documented as of this encounter
--- OUTSIDE RECORDS SUMMARY | 2024-12-05 16:13 | XMS_ITS | Encounter Summary ---
Author Organization [facility] Address [address] [place] [address] Phone Care Team Providers Care Wood Milling Machine Tender Name Role Phone Juan Jose Ellington TILE LAYER Primary Care Provider [phone] Encounter Details Date Type Department Care Team (Late st Contact Info) Description 10/25/2023 Documentation Only [facility] [place], [address] [place] [address] Tatyana Ritchie [address] [place] [address] Social History Tobacco Use Types [...] on filedocumented in this encounter Care Teams Wood Milling Machine Tender Relationship Specialty Start Date End Date Juan Jose Ellington NP [address] [facility] [place] [address] PCP - General 12/25/18 documented as of this encounter
--- OUTSIDE RECORDS SUMMARY | 2024-12-05 16:13 | XMS_ITS | Encounter Summary ---
Author Organization [facility] Address [address] [place] [address] Phone Care Team Providers Care Horologist Name Role Phone Juan Jose Ellington RIPENING ROOM HAND Primary Care Provider [phone] Encounter Details Date Type Department Care Team (Late st Contact Info) Description 10/25/2023 Documentation Only [facility] [place], [address] [place] [address] Tatyana Ritchie [address] [place] [address] Social History Tobacco Use Types [...] on filedocumented in this encounter Care Teams Horologist Relationship Specialty Start Date End Date Juan Jose Ellington NP [address] [facility] [place] [address] PCP - General 12/25/18 documented as of this encounter
--- OUTSIDE RECORDS SUMMARY | 2024-12-05 16:13 | XMS_ITS | Clinical Summary ---
Author Organization [facility] [place], Address [address] [place] [address] [place] [address] Phone Care Team Providers Care Cemetery Warden Name Role Phone Juan Jose Ellington NP Primary Care Provider [phone] Allergies No known active allergies Medications albuterol [...] Only [facility] [place], [address] [place] [address] Tatyana Ritchie from Last 3 Months [...] age to complete this topic Insurance Medicaid [place] Medicare Medicare Medicaid [place] Care Teams Cemetery Warden Relationship Specialty Start Date End Date Juan Jose Ellington NP [address] [facility] [place] [place] [address] PCP - General 12/25/18
--- OUTSIDE RECORDS SUMMARY | 2024-12-05 16:13 | XMS_ITS | Encounter Summary ---
Author Organization [facility] Address [address] [place] [address] Phone Care Team Providers Care Wallpaper Cleaner Name Role Phone Juan Jose Ellington FILM MAKER Primary Care Provider [phone] Encounter Details Date Type Department Care Team (Late st Contact Info) Description 10/25/2023 Documentation Only [facility] [place], [address] [place] [address] Tatyana Ritchie [address] [place] [address] Social History Tobacco Use [...] on filedocumented in this encounter Care Teams Wallpaper Cleaner Relationship Specialty Start Date End Date Juan Jose Ellington NP [address] [facility] [place] [address] PCP - General 12/25/18 documented as of this encounter
== END 2024-12-05 14:11 | disposition home or self-care (01) ==
PROVIDERS: PCP Nurse Practitioner Family; Visit Provider Physician Assistant Medical
DX: J06.9 Acute upper respiratory infection, unspecified (principal)

== ENCOUNTER → 2024-12-05 14:20 | Outpatient (BNV) | payer MEDICARE, MEDICAID, SELFPAY | PROVIDERS: PCP Nurse Practitioner Family; Visit Provider Radiology Diagnostic Ultrasound | DX: R91.8 Other nonspecific abnormal finding of lung field (principal) | CPT/HCPCS: 71046 ==

== ENCOUNTER 2024-12-12 13:04 | Outpatient (AMB) | payer MEDICARE, MEDICAID, SELFPAY ==
--- OUTSIDE RECORDS SUMMARY | 2024-12-11 09:00 | XMS_ITS | Encounter Summary ---
Author Organization [facility] Address [address] [place] [address] Care Team Providers Care Cloth Mercerizer Back Tender Name Role Phone Clarence Ellington NP Primary Care Provider + [phone] Reason for Referral * Therapy (Routine) - Authorized Specialty Diagnoses / Procedures Referred By Lo worrell Referred To Contact Pulmonology Diagnoses Chronic obstructive pulmonary disease, unspecified COPD type (CMS/HCC V24, CMS/HCC V28) Procedures Pulmonary function testing: Spirometry with Bronchodilator, Carbon Monoxide Diffusing Capacity, Vital Capacity Test, Nitrogen Wash Out Sarah Breaux MD [address] [address] Phone: tel: fax: Pulmonology [facility] [address] [address] Phone: tel: fax: Referral ID Status Reason Start Date Expiration Date V isits Requested Visits Authorized [id number] Authorized 12/11/2024 12/11/2025 1 1 * Imaging (Routine) - Authorized Specialty Diagnoses / Procedures Referred By Lo worrell Referred To Contact Radiology Diagnoses Chronic obstructive pulmonary disease, unspecified COPD type (CMS/HCC V24, CMS/HCC V28) Pulmonary nodule Procedures CT Chest wo Contrast Sarah Breaux MD 175 [facility] [address] [place] [address] Phone: tel: fax: [facility] Referral ID Status Reason Start Date Expiration Date V isits Requested Visits Authorized [id number] Authorized 12/11/2024 12/11/2025 1 1 Reason for Visit * Reason Comments COPD 4 mth f/u COPD Encounter Details Date Type Department Care Team (Late st Contact Info) Description 12/11/2024 9:00 AM EDT Office Visit Pulmonology - [place] [address] [place] [address] Sarah Breaux MD [address] [place] [address] [place] [address] Sarcoidosis of lung ([facility] V24) (Primary Dx); Chronic obstructive pulmonary disease, unspecified COPD type ([facility] V24, [facility] V28); Pulmonary nodule Social History Tobacco Use Types Packs/Day Years [...] Sign Reading Time Taken Comments Blood Pressure 130/70 12/11/2024 9:34 AM EDT Pulse 56 12/11/2024 9:34 AM EDT Temperature 36.6 C (97.9 F) 12/11/2024 9:34 AM EDT Respiratory Rate 20 12/11/2024 9:34 AM EDT Oxygen Saturation 94% 12/11/2024 9:34 AM EDT Inhaled Oxygen Concentration - - Weight - - Height - - Body Mass Index - - documented in this encounter Progress Notes * Sarah Breaux MD - 12/11/2024 9:00 AM EDT Images from the original note were not included. ADULT PULMONARY CONSULT CHIEF COMPLAINT or REASON FOR CONSULTATION: COPD (4 mth f/u COPD) HISTORY OF PRESENT ILLNESS: Nikki Borjas is a 79 y.o. years old, female with a history of COPD, CHF, Afib and sarcoidosis.Uses oxygen qhs and prn during the day- no hospital stays. She has congestion will cough and wheezing for few weeks, no fever or purulent sputum. The patient has shortness of breath with ambulation and she rarely moves. I last saw her 4 mths ago- she had repeat CT scan that showed stable findings- she is on Doxycycline for bronchitis. No ER visits, eating and drinking normally ALLERGIES: Current Allergies[1] ACTIVE MEDICATIONS: Medications Taking[2] PROVIDER ATTESTS THAT THE MEDICATION LIST WAS OBTAINED, REVIEWED AND UPDATED. REVIEW OF SYSTEMS: GENERAL: No wt lost or fever ENT: +snoring Eye: RESPIRATORY: no cough, wheezing and dyspnea CARDIOVASCULAR: No chest pain, leg swelling or palpitations GI: No abdominal discomfort, MUSCULOSKELETAL: no backpain HEMATOLOGY/LYMPHOLOGY No prolonged bleeding, easy bruisability ENDOCRINE: no DM NEURO: No focal weakness, + tremors due to parkinson : Psych: + bipolar PAST MEDICAL HISTORY: Patient Active Problem List Diagnosis Date Noted Bipolar disorder ([facility] V24, [facility] V28) 10/11/2018 COPD (chronic obstructive pulmonary disease) ([facility] V24, [facility] V28) 10/11/2018 Hyperlipidemia 10/11/2018 Hypertension 10/11/2018 Pulmonary nodule 10/11/2018 Sarcoidosis of lung ([facility] V24) 10/11/2018 Surgical History[3] FAMILY HISTORY: Family History[4] OCCUPATION OR OCCUPATION EXPOSURE: SOCIAL HISTORY Social History Socioeconomic History Marital status: Spouse name: Not on file Number of children: Not on file Years of education: Not on file Highest education level: Not on file Occupational History Not on file Tobacco Use Smoking status: Former Current packs/day: 0.00 Average packs/day: 1 pack/day for 53.0 years (53.0 ttl pk-yrs) Types: Cigarettes Start date: 02/20/1961 Quit date: 02/20/2014 Years since quittin.8 Smokeless tobacco: Never Substance and Sexual Activity Alcohol use: Never Drug use: Never Sexual activity: Not on file Other Topics Concern Not on file Social History Narrative Not on file IMMUNIZATION: Immunization History Administered Date(s) Administered COVID-19 (Moderna/Spikevax) 12yo and older 01/22/2024 Moderna (age 6mo & older) Bivalent, COVID-19, 0.5 mL or 0.25 mL dosage 01/05/2022 Moderna SARS-CoV-2 COVID-19, mRNA, LNP-S, preservative free 05/02/2020, 05/30/2020, 01/21/2021 PHYSICAL EXAM: Visit Vitals BP 130/70 (BP Location: Left arm, Patient Position: Sitting, BP Cuff Size: Large adult) Pulse 56 Temp 36.6 ??C (97.9 ??F) (Temporal) Resp 20 SpO2 94% Smoking Status Former APPEARANCE: Alert and in no acute distress. In wheelchair- Overweight, pt with daughter EYES: Conjunctiva and sclera normal. NOSE/SINUS: Nares normal. Septum midline. Mucosa No drainage or sinus tenderness. MOUTH/THROAT: no erythema or exudates. Mallampati class 2 NECK: Neck supple, thyroid symmetric and of normal size. HEART: RRR with normal S1 and S2, no murmurs, no gallops, no JVD appreciated. LUNG: CTA b/l ABDOMEN: Bowel sounds normoactive, soft, non-tender EXTREMITIES: no clubbing, cyanosis, trace edema on right LYMPH NODES: No cervical and supra-clavicular lymphadenopathy. NEURO: Awake, alert and oriented x 3, no focalization DIAGNOSTIC DATA: path- [facility]- no malignancy- noncaseating granuloma 2019 Echo 04/11/24 moderate pulm htn- normal RV size and function, EF 68% CARDIOPULMONARY TEST: Last Pulmonary function Test showed: 12/21/22 INDICATION: SPIROMETRY: FEV1 is 50 % predicted and an FVC is 57 % predicted.The FEV1/FVC ratio is 89% of normal, No significant response to bronchodilators noted. Maximum voluntary ventilation 46% predicted. LUNG VOLUMES: Total lung capacity (TLC): 89% predicted. Residual volume (RV): 117% predicted RV/TLC ratio is 133% of normal End respiratory volume (ERV): 53% predicted DIFFUSION CAPACITY: DLCO 47% predicted. DlCO/VA 62% of predicted COMPARISONS: INTERPRETATION: This pulmonary function test shows Moderate obstructive lung disease with gas trapping. The findings are consistent with COPD/emphysema, when compared to the last test from December 2020, there has been a generalized decline in the FEV1, FVC and DLCO RADIOLOGIST IMAGING: CT chest 7/23/25 IMPRESSION: 1. Stable postsurgical changes of a [...] which is also suspected to be inflammatory. ASSESSMENT: ICD-10-CM ICD-9-CM 1. Sarcoidosis of lung ([facility] V24) D86.0 135 Respiratory Care Supplies 517.8 2. Chronic obstructive pulmonary disease, unspecified COPD type ([facility] V24, [facility] V28) J44.9 496 Respiratory Care Supplies 3. Pulmonary nodule R91.1 793.11 PLAN: Clinically the patient is stable. The repeat CT did show new right lobe nodule, I will repeat in 6 months or 3 months from today. She will continue Trelegy for COPD and I will repeat a PFT to follow-up on her COPD and sarcoidosis. I will also get her an Acapella for airway clearance - Follow up with CLARENCE ELLINGTON NP for the other co-morbilities. - I spend 35 Minutes on this visit. The patient was educated about his problems, where assessment and plan was reviewed and explained, All questions were answered. This includes: Preparing to see the patient, obtaining and/or reviewing separately obtained history, performing a medically appropriate exam, ordering medications, tests, or procedures, documenting clinical information in the electronic health record, and independently interpreting results. RETURN TO THE NEXT VISIT: Based on physical exam, symptomatology, tests requested and baseline pulmonary evaluation/disease, I instructed the patient to come back to see me in 4 mths for reevaluation after the test has been done or earlier if the patient needed. Thanks CLARENCE ELLINGTON NP for allowing me to have the opportunity to assist in the care of this patient. [1] Allergies Allergen Reactions Sulfa (Sulfonamide Antibiotics) No reaction documented. [2] Outpatient Medications Marked as Taking for the 12/11/24 encounter (Office Visit) with Sarah Breaux MD Medication Sig Dispense Refill acetaminophen (TYLENOL) 325 mg capsule Take by mouth. albuterol 2.5 mg /3 mL (0.083 %) nebulizer solution Take 3 mL (2.5 mg total) by nebulization every 6 (six) hours if needed for wheezing. 300 mL 2 amiodarone (PACERONE) 100 mg tablet Take by mouth 1 (one) time each day. apixaban (ELIQUIS) 5 mg tablet Take by mouth. doxycycline (DORYX) 100 mg EC tablet Take 1 tablet (100 mg total) by mouth 2 (two) times a day. Do not crush or chew. Take with a full glass of water and do not lie down for at least 30 minutes after. furosemide (LASIX) 20 mg tablet Take 1 Tablet by mouth every other day. Mon,mon and monday HYDROXYZINE HCL ORAL Take 10 mg by mouth daily. lamoTRIgine (LaMICtal) 50 mg dispersible tablet Take by mouth at bedtime. multivitamin/iron/folic acid (CENTRUM ORAL) Take by mouth. nitrofurantoin (MACRODANTIN) 50 mg capsule Take by mouth 1 (one) time each day. OLANZapine (ZyPREXA) 7.5 mg tablet Take 7.5 mg by mouth at bedtime. Oxygen Therapy via Nasal Cannula (O2) gas Inhale 2 L/min by mouth continuously. via nasal canula onexertion predniSONE (DELTASONE) 10 mg tablet TAKE 1 TABLET BY MOUTH 1 TIME EACH DAY. 30 tablet 1 predniSONE (DELTASONE) 20 mg tablet 2 tab po qd x 1 and then 1 tab po qd x 6 days 8 each 0 simvastatin (ZOCOR) 20 mg tablet Take 20 mg by mouth at bedtime. Trelegy Ellipta 100-62.5-25 mcg inhaler INHALE 1 PUFF INTO THE LUNGS DAILY FOR 30 DAYS. 60 each 11 Ventolin HFA 90 mcg/actuation inhaler INHALE 2 PUFFS INTO THE LUNGS EVERY 4 HOURS NEEDED FOR COUGH OR WHEEZING FOR UP TO 30 DAYS. 18 each 11 [3] Past Surgical History: Procedure Laterality Date OTHER SURGICAL HISTORY Right 04/27/2018 PROCEDURE: AK BRNCHSC INCL FLUOR GDNCE DX W/CELL WASHG SPX; COMMENT: negative malignancy OTHER SURGICAL HISTORY Right 05/30/2018 PROCEDURE: AK BRONCHOSCOPY W/CPTR-ASST IMAGE-GUIDED NAVIGATION; COMMENT: da Arthur/VATS RUL wedge resection w/extensive pneumolysis OTHER SURGICAL HISTORY PROCEDURE: AK CARDIOVERSION ELECTIVE ARRHYTHMIA EXTERNAL TUBAL LIGATION PROCEDURE: HISTORICAL TUBAL LIGATION [4] Family History Problem Relation Name Age of Onset Lymphoma Sister Hodgkins Lymphoma Sister non-Hodgkins Other (Other: Substance use disorder) Other Cervical cancer Daughter Tatyana Scleroderma Daughter documented in this encounter Plan of Treatment Upcoming Encounters Date Type Department Care Team (Late st Contact Info) Description 04/14/2025 1:15 PM EST Ancillary Procedure Pulmonology [facility] 175 [facility] [address] [place] [address] 04/14/2025 2:15 PM EST Office Visit Pulmonology [facility] 175 [facility] [address] [place] [address] Sarah Breaux MD 175 [facility] [address] [place] [address] Scheduled Orders Name Type Priority Associated Diagnoses Orde r Schedule CT Chest wo Contrast Imaging Routine Chronic obstructive pulmonary disease, unspecified COPD type ([facility] V24, CMS/[facility] V28) Pulmonary nodule Expected: 03/13/2025, Expires: 06/11/2025 Pulmonary function testing: Spirometry with Bronchodilator, Carbon Monoxide Diffusing Capacity, Vital Capacity Test, Nitrogen Wash Out PFT Routine Chronic obstructive pulmonary disease, unspecified COPD type (CMS/HCC V24, CMS/HCC V28) 1 Occurrences starting 12/11/2024 until 12/11/2025 documented as of this encounter Visit Diagnoses Diagnosis Sarcoidosis of lung (CMS/HCC V24)- Primary Sarcoidosis Chronic obstructive pulmonary disease, unspecified COPD type (CMS/HCC V24, CMS/HCC V28) Pulmonary nodule Other diseases of lung, not elsewhere classified documented in this encounter Historical Medications * This list may reflect changes made after this encounter. doxycycline (DORYX) 100 mg EC tablet Take 1 tablet (100 mg total) by mouth 2 (two) times a day. Do not crush or chew. Take with a full glass of water and do not lie down for at least 30 minutes after. nitrofurantoin (MACRODANTIN) 50 mg capsule Take by mouth 1 (one) time each day. amiodarone (PACERONE) 100 mg tablet Take by mouth 1 (one) time each day. added in this encounter Orders General Supply Count Last Ordered Date First Or dered Date RESPIRATORY CARE SUPPLIES 1 12/11/2024 documented in this encounter Care Teams Cloth Mercerizer Back Tender Relationship Specialty Start Date End Date Clarence Ellington NP [address] [place], [place] PCP - General 06/26/18 documented as of this encounter
[2024-12-12 13:14] VITALS: BP 120/72; PULSE 58
--- NOTE | 2024-12-12 13:14 | MHC.OFFVIS ---
Vital Signs 12/12/24 13:14 Height 5 ft 1 in BMI Reason not done Patient refused/unable BP 120/72 Blood Pressure Location Lt brachial Position Sitting Pulse 58 Intake Visit Reasons: 6 mth w/ ekg Intake Note: 6 month follow-up with ekg feeling ok Radiation Oncology Therapist Required: No Insurance Attorney: Insurance Attorney Present Accompanied by: Family/Other Allergies Sulfa (Sulfonamide Antibiotics) (SULFA (SULFONAMIDE ANTIBIOTICS)) Allergy (Severe, Verified 12/05/24 13:15) RASH, Anaphylaxis Medication List - Last Reconciled 12/12/24 by Steven Castañeda MD acetaminophen 325 mg PO QID PRN 7 days albuterol sulfate 90 mcg/actuation (Ventolin HFA) 2 puffs inhalation Q6H PRN amiodarone 100 mg (1/2 x 200 mg) PO DAILY apixaban (Eliquis) 5 mg PO BID carbidopa-levodopa 25-100 mg ER 1 tab PO BID 30 days cholecalciferol (vitamin D3) 50 mcg PO DAILY cranberry 1,000 mg PO DAILY [disposable bed pads As directed, uses 6 per day] [disposable gloves As directed, uses 8 per day to provide incontinence care] [disposable incontinence wipes As directed, uses 10 per day to provide incontinence care] [disposable pull up briefs As directed, uses 8 per day] ubbupwxamjn-wtosshthi-yrkybjit 100-62.5-25 mcg (Trelegy Ellipta) 1 ea inhalation DAILY furosemide 20 mg PO Q OTHER DAY hydroxyzine HCl 10 mg PO DAILY PRN lamotrigine 50 mg PO BEDTIME metoprolol succinate ER 50 mg (2 x 25 mg) PO DAILY nitrofurantoin macrocrystal 50 mg PO DAILY olanzapine 7.5 mg PO BEDTIME prednisone 20 mg PO DAILY simvastatin 20 mg PO BEDTIME walker Standard walker, no wheels [washable bed pads As directed] HPI Comments Details: Nikki comes for follow-up, accompanied by her daughter. She comes in a wheelchair. As per the daughter she says she continues to remains significantly short of breath and fatigue with minimal exertion. She does not have significant orthopnea although she sleeps in his reclining position as per the recommendations of Pulmonary. She also has oxygen at nighttime. She does not have any clear PND. No prolonged palpitation rapid heart rate. No bleeding issues or neurologic events. No lightheadedness or syncope. Her creatinine has improved marginally, closely being followed by Nephrology as well. Marcelina's recently given the device to improve her clearance of mucus which says has helped her a lot. She continues to have cough and says coming over a recent pneumonia. This was managed at home. [facility] Medical History Paroxysmal atrial fibrillation Emphysema of lung Tardive dyskinesia Coarse tremors Hypersomnia Snoring SHARON (acute kidney injury) Mediastinal lymphadenopathy Atrial fibrillation Dyslipidemia Kidney disease Leukocytosis Necrotizing granulomatous inflammation of lung Bipolar 1 disorder Vitamin D deficiency COPD (chronic obstructive pulmonary disease) Sarcoidosis HTN (hypertension) Wylie nephropathy Surgical History History of cardioversion History of bronchoscopy Family History Child No Financial Resp No problems noted. 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 Current occupational exposures/hazards: No Cognitive needs: No Hearing needs: No Vision needs: Yes Review of Systems Const Denies chills, Denies fatigue, Denies fever(s), Denies frequent falls, Denies weakness, Denies weight gain and Denies weight loss ENT Denies dizziness Card Denies chest pain, Denies leg edema, Denies lightheadedness, Denies palpitations, Denies dyspnea, Denies dyspnea on exertion, Denies orthopnea and Denies other (loss of consciousness) Resp Denies cough, Denies dyspnea and Denies dyspnea on exertion GI Denies hematochezia and Denies change in stool character Musc Denies abnormal gait, Denies muscle weakness, Denies numbness, Denies radiating pain into limb and Denies tingling Neuro Denies abnormal gait, Denies dizziness, Denies frequent falls, Denies numbness, Denies tingling and Denies weakness Endo Denies fatigue and Denies palpitations Physical Exam Vital Signs: Last Vital Signs Pulse 58 12/12/24 13:14 BP 120/72 12/12/24 13:14 Const General: cooperative, comfortable and no acute distress Neck Neck: Yes normal visual inspection and Yes no JVD Resp Effort & Inspection: normal respiratory effort Auscultation: no crackles, no rales, no rhonchi, no wheezes and bronchovesicular breath sounds Cardio Jugular venous distension: no JVD Rate: regular rate Rhythm: regular rhythm Heart sounds: S1 normal heart sound present, S2 normal heart sound present, no gallops, no murmurs and no rubs GI Inspection: Yes normal to inspection Extrem General: Yes normal to inspection and No no pedal edema Psych Appearance: grossly normal Mental Status: mental status grossly normal Office Procedures EKG Details: EKGs shows normal sinus rhythm at 58 beats per minute with normal EKGs [id number], Complete Assessment & Plan Assessment & Plan (1) Congestive heart failure: Code(s): I50.9 - Heart failure, unspecified Category: Medical Plan: Prior congestive heart failure syndrome which could be related to valve disease and atrial fibrillation. Clinically euvolemic and well compensated current low-dose Lasix therapy. Her exertional shortness of breath appears to be multifactorial probably related to her underlying COPD with mucus plugging and obesity with deconditioning. Calcific mitral valve disease could also play a role if she has continue significant mitral stenosis. We discussed about this. See below. Continue low-dose diuretic therapy. Continue optimization of pulmonary function. (2) Calcification of mitral valve: Code(s): I34.81 - Nonrheumatic mitral (valve) annulus calcification Category: Medical Plan: Calcific mitral valve disease with possible severe mitral stenosis and moderate mitral regurgitation with mixed valve disease. Will re-evaluate mitral stenosis severe already by repeat echocardiogram. If she does have persistent significant suggestive of severe mitral stenosis will require further evaluation with JOHNNY and cardiac catheterization. We discussed that patient can potentially pursue transcatheter mitral valve replacement. She is not a candidate for surgical mitral valve replacement. This was discussed with the. Patient's daughter is willing to pursue with this patient is agreeable as well. Will repeat another echocardiogram follow up in 2 months time. (3) Paroxysmal atrial fibrillation: Code(s): I48.0 - Paroxysmal atrial fibrillation Category: Medical Plan: Paroxysmal atrial fibrillation has done well with rhythm control approach. Continue pursue rhythm control approach. Continue low-dose amiodarone therapy. Currently on full oral anticoagulation with apixaban. Continue the same. Quarterly renal function test should be pursued. Avoidance of stimulants was discussed. Will follow up in the clinic in 2 months time, sooner PRN. Thank you for allowing me to partake in her care Orders: Orders CA echo transthoracic complete Today I34.81 - Nonrheumatic mitral (valve) annulus calcification Coding Level of Care Code Est Pt Level 4 (82691) Complex EM visit Add On G2211 Diagnoses Congestive heart failure I50.9 Calcification of mitral valve I34.81 Paroxysmal atrial fibrillation I48.0 CPT Codes EKG - CPT: [id number], Complete ([id number])
--- OUTSIDE RECORDS SUMMARY | 2024-12-12 16:27 | XMS_ITS | Clinical Summary ---
Author Organization [facility] Address [address] [place] [address] Phone Care Team Providers Care Cashier General Name Role Phone Juan Jose Ellington NP [...] HFA 90 mcg/actuation inhalerIndicat ions:Emphysema , unspecified ([facility] V24, [facility] V28) INHALE 2 PUFFS INTO THE LUNGS EVERY 4 HOURS NEEDED FOR COUGH OR WHEEZING FOR UP TO 30 DAYS. 18 each 04/16/19 25 Active Oxygen Therapy via Nasal Cannula (O2) gas Inhale 2 L/min by mouth continuously. via nasal canula on exertion 04/11/19 25 Active albuterol 2.5 mg /3 mL (0.083 %) nebulizer solutionIndica tions:Chronic obstructive pulmonary disease, unspecified COPD type ([facility] V24, [facility] V28) Take 3 mL (2.5 mg total) by nebulization every 6 (six) hours if needed for wheezing. 300 mL 2 05/04/19 25 026 Active predniSONE (DELTASONE) 20 mg tablet 2 tab po qd x 1 and then 1 tab po qd x 6 days 8 each 08/30/19 25 Active predniSONE (DELTASONE) 10 mg tabletIndicati ons:Chronic obstructive pulmonary disease, unspecified COPD type ([facility] V24, [facility] V28) TAKE 1 TABLET BY MOUTH 1 TIME EACH DAY. 30 tablet 1 11/21/19 25 Active amiodarone (PACERONE) 100 mg tablet Take by mouth 1 (one) time each day. Active nitrofurantoin (MACRODANTIN) 50 mg capsule Take by mouth 1 (one) time each day. Active doxycycline (DORYX) 100 mg EC tablet Take 1 tablet (100 mg total) by mouth 2 (two) times a day. Do not crush or chew. Take with a full glass of water and do not lie down for at least 30 minutes after. Active predniSONE (DELTASONE) 10 mg tablet Take 1 tablet (10 mg total) by mouth 1 (one) time each day. 30 each 1 10/01/19 25 025 Discontinued Active Problems Problem Noted Date Diagnosed Date Bipolar disorder ([facility] V24, [facility] V28) 09/21 COPD (chronic obstructive pu lmonary disease) ([facility] V24, [facility] V28) 10/11/2018 Hyperlipidemia 10/11/2018 Hypertension 10/11/2018 Pulmonary nodule 10/11/2018 Overview (04/12/2024): RUL-05/30/18 S/p VATS & wedge resection-no malignancy Sarcoidosis of lung ([facility] V24) 10/11/2018 Encounters Date Type Department Care Team Description 12/11/2024 9:00 AM EDT Office Visit Pulmonology [facility] [address] [facility] [address] [place] [phone] Sarah Breaux MD Sarcoidosis of lung ([facility] V24) (Primary Dx); Chronic obstructive pulmonary disease, unspecified COPD type ([facility] V24, [facility] V28); Pulmonary nodule 12/11/2024 Telephone Pulmonology [facility] [address] [facility] [address] [place] [address] Dhaval Yang MA 09/11/2024 10:47 AM EDT - 09/11/2024 11:59 PM EDT Hospital Encounter [facility] CT Scan [address] [place] [phone] Pulmonary nodule Discharge Disposition: Home or Self Care from Last 3 Months Immunizations Immunization Administration Dates Next Due Moderna SARS-CoV-2 COVID-19, mRNA, LNP-S, preservative free 05/30/2020,05/02/2020 Surgical History Surgery Date Site/Laterality Comments OTHER SURGICAL HISTORY 04/27/2018 Right PROCEDURE: [place] BRNCHSC INCL FLUOR GDNCE DX W/CELL WASHG SPX; COMMENT: negative malignancy TUBAL LIGATION PROCEDURE: HISTORICAL TUBAL LIGATION OTHER SURGICAL HISTORY 05/30/2018 Right PROCEDURE: [place] BRONCHOSCOPY W/CPTR-ASST IMAGE-GUIDED NAVIGATION; COMMENT: da Arthur/VATS RUL wedge resection w/extensive pneumolysis OTHER SURGICAL HISTORY PROCEDURE: [place] CARDIOVERSION ELECTIVE ARRHYTHMIA EXTERNAL Medical History Medical History Date Comments COPD (chronic obstructive pu lmonary disease) ([facility] V24, [facility] V28) 10/11/2018 DX:COPD (chronic o bstructive pulmonary disease) (HCC) Sarcoidosis of lung ([facility] V24) 10/11/2018 DX:Sarcoidosis of lung (HCC) [...] (HCC) Renal disease DX:Renal disease Leukocytosis DX:Leukocytosis [place] nephropathy DX:[place] n ephropathy Mediastinal lymphadenopathy DX:M ediastinal lymphadenopathy [...] 04/14/2025 1:15 PM EST Ancillary Procedure Pulmonology - [place] [address] [facility] [address] [place] [phone] 04/14/2025 2:15 PM EST Office Visit Pulmonology - [place] [address] [facility] [address] [place] [address] Sarah Breaux MD 175 [facility] [address] [place] [address] Health Maintenance Due Date Last Done Comments Cholesterol Screening (Lipid Panel) 01/23/2022 Falls Risk [...] 2024 , 11/18/2021, 02/20/2021, Additional history exists Zoster Vaccines (2 of 2) 11/07/2024 09/12/2024 DTaP,Tdap,and Td Vaccines (2 - Td or Tdap) 09/12/2034 09/12/2024 Pneumococcal Vaccine: 50+ Years Completed 02/20/2021, 03/09/2016, [...] Signed Date: 09/13/2024 15:50 ET Workstation ID: [id number] Transcribed By: Self Edit Transcribed Date: 09/13/2024 [...] Signed Date: 09/13/2024 15:50 ET Workstation ID: [id number] Transcribed By: Self Edit Transcribed Date: 09/13/2024 15:48 ET us Sarah Breaux MD IM CT PROCEDURES Final Result * CT LUNG SCREENING LOW DOSE (06/13/2023 3:45 PM EDT) Anatomical Region Laterality Modality Computed Tomogra phy 06/12/2023 11:3 6 AM EDT Narrative 06/13/2023 3:45 PM EDT [facility] Diagnostic Imaging Department [address] [place] [address] Patient: CHARLESDARIANANIKKI /Age/Sex: 1945 - 77 - F Unit#: [id number] Location/Status: SPDICATLS/REG CLI Mnemonic/Ordering Site: [facility] Ordering Physician: MULUGETA SU MD [...] Procedure Note Edgard Torres MD - 10/09/2023 [facility] Diagnostic Imaging Department [address] [place] [address] Patient: JEANIE HURTADORA Corley /Age/Sex: 1945 - 77 - F Unit#: [id number] Location/Status: SPDICATLS/REG CLI Mnemonic/Ordering Site: [facility] Ordering Physician: MULUGETA SU MD [...] Sign date/Time: 06/13/23 1545 Mulugeta Su MD IM CT PROCEDURES Final Result from Last 3 Months or Most Recently Relevant to Health Maintenance Insurance MEDICARE MEDICAID [place] Care Teams Cashier General Relationship Specialty Start Date End Date Juan Jose Ellington NP [address] [place], [place] PCP - General 06/26/18
--- OUTSIDE RECORDS SUMMARY | 2024-12-12 16:27 | XMS_ITS | Encounter Summary ---
Author Organization [facility] Address [address] [place] [address] Care Team Providers Care Test Engineer Nuclear Equipment Name Role Phone Juan Jose Ellington OPTOELECTRONICS ENGINEER Primary Care Provider [phone] Reason for Visit * Reason Onset Date Comments Fitting for DME 12/11/2024 [facility] Res[facility] Care Supplies. Encounter Details Date Type Department Care Team (Late Contact Info) Description 12/11/2024 Telephone Pulmonology - [place] [address] [facility] [address] [address] [place] [phone] Dhaval Yang MA Social History Tobacco Use Types Packs/Day [...] Progress Notes * Dhaval Yang MA - 12/11/2024 4:49 PM EDT [facility] Supp[facility] order and notes emailed to O[facility] from [facility]. documented in this encounter Plan of Treatment Upcoming Encounters Date Type Department Care Team (Late Contact Info) Description 04/14/2025 1:15 PM EST Ancillary Procedure Pulmonology - [place] [address] [place] [phone] 04/14/2025 2:15 PM EST Office Visit Pulmonology - [place] [address] [facility] [address] [facility] [address] [place] [phone] Sarah Breaux MD [address] [place] [address] [place] [address] documented as of this encounter Visit Diagnoses Not on filedocumented in this encounter Care Teams Test Engineer Nuclear Equipment Relationship Specialty Start Date End Date Juan Jose Ellington NP [address] [place], [place] PCP - General 06/26/18 documented as of this encounter
== END 2024-12-12 13:42 | disposition home or self-care (01) ==
LOC: HO.HCS 13:05
PROVIDERS: PCP Nurse Practitioner Family; Visit Provider Internal Medicine Cardiovascular Disease
DX: I50.9 Heart failure, unspecified (principal); I34.81 Nonrheumatic mitral (valve) annulus calcification; I48.0 Paroxysmal atrial fibrillation
CPT/HCPCS: 93010; 99214; G2211

== ENCOUNTER → 2024-12-12 13:04 | Outpatient (BNVA) | payer MEDICARE, MEDICAID, SELFPAY | PROVIDERS: PCP Nurse Practitioner Family; Visit Provider Internal Medicine Cardiovascular Disease | DX: I11.0 Hypertensive heart disease with heart failure (principal); R06.01 Orthopnea; R53.83 Other fatigue; I34.81 Nonrheumatic mitral (valve) annulus calcification; I48.0 Paroxysmal atrial fibrillation; Z87.891 Personal history of nicotine dependence; Z79.01 Long term (current) use of anticoagulants | CPT/HCPCS: 93005; 99212 ==

== ENCOUNTER 2024-12-30 12:32 | Outpatient (AMB) | payer MEDICARE, MEDICAID, SELFPAY ==
[2024-12-30 12:50] VITALS: BP 120/80; PULSE 55; TEMP 36.8; O2SAT 96; BMI 38.0
--- NOTE | 2024-12-30 12:50 | AM.OFFWIN_ITS ---
Intake Vital Signs 12/30/24 12:50 Height 5 ft 1 in Weight 201 lb BMI 38.0 BP 120/80 Blood Pressure Location Lt brachial Position Sitting Pulse 55 Pulse Source Pulse Oximeter Temp 98.3 F Temp Source Oral Pulse Oximetry (%) 96 Oxygen Delivery Method Room Air Intake Visit Reasons: EP difficulty breathing Intake Note: Patient presents with c/o cough, difficulty breathing, chest tightness x1 week - patient just completed treatment for pneumonia 2 weeks ago but patient & daughter feel it has returned or never fully resolved. Patient Tobacco Use Status: Former Tobacco user Allergies Sulfa (Sulfonamide Antibiotics) (SULFA (SULFONAMIDE ANTIBIOTICS)) Allergy (Severe, Verified 12/30/24 12:54) RASH, Anaphylaxis Do you need a note to return to daycare/school/sports/work: No HPI HPI Comments History of Present Illness Details History - The patient is a 79-year-old female pr esenting with her daughter for worsening respiratory symptoms post-treatment for pneumonia. - She was seen here on 12/15 for the [facility] e and given antibiotics. - She completed a course of azithromycin and amoxicillin-clavulanate for pneumonia, but symptoms have worsened, including increased coughing and shortness of breath with brownish sputum. - The patient has a history of COPD and is under the care of a cloth spreader, with concerns about a potential heart valve issue. - Previous tests showed an enterovirus i nfection, with negative results for COVID-19 and influenza. - She is on daily prednisone and uses a nebulizer every four to six hours, with a history of hospitalization for respiratory issues. - Her pulmonoloist saw her on 12/11 and he states that it was mostly from her COPD and she has a repeat CT scan planned. - Her desktop analyst is concerned about he r heart and has an upcoming echo. - She denies fever, chills, abd pain, n/ v/d, calf pain, or leg swelling. - She has no sick contacts. - Her daughter wants to make sure that s he does not have pneumonia. - She has had her vaccines. Physical Exam General: Cooperative, healthy appearing, comfortable and no acute distress Orientation/consciousness: Patient oriented x3 Limitations: No limitations Head: Normal to inspection Ears: Hearing grossly normal bilaterally, external ears normal and TM's normal bilaterally Nose: Normal external nose present, normal nares present, and no nasal discharge present. Face and sinus: Sinuses nontender to palpation. Mouth: Normal oral and palatal mucosa present and moist mucous membranes noted. Throat: Tonsils normal. Uvula is midline. Posterior oropharynx with erythema and no exudates. Eyes: Appearance normal, both eyes and all related structures Neck: Normal visual inspection, full ROM. No lymphadenopathy noted. Respiratory: Clear to auscultation bilaterally. Normal respiratory effort, able to speak in complete sentences. No respiratory distress, not tachypneic, no trip od positioning and no use of accessory muscles. Cardiovascular: Regular rate and rhythm. Normal S1 and S2 Skin: No rashes or lesions noted Patient was informed and verbally consented to the use of an ambient scribe for clinic note documentation during this visit [facility] Medical History Paroxysmal atrial fibrillation Emphysema of lung Tardive dyskinesia Coarse tremors Hypersomnia Snoring SHARON (acute kidney injury) Mediastinal lymphadenopathy Atrial fibrillation Dyslipidemia Kidney disease Leukocytosis Necrotizing granulomatous inflammation of lung Bipolar 1 disorder Vitamin D deficiency COPD (chronic obstructive pulmonary disease) Sarcoidosis HTN (hypertension) [place] nephropathy Surgical History History of cardioversion History of bronchoscopy Family History Child No Financial Resp No problems noted. 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 Current occupational exposures/hazards: No Cognitive needs: No Hearing needs: No Vision needs: Yes Review of Systems Const All systems reviewed & are unremarkable except as noted in HPI and below Physical Exam Vital Signs: Last Vital Signs Temp 98.3 F 12/30/24 12:50 Pulse 55 12/30/24 12:50 BP 120/80 12/30/24 12:50 Pulse Ox 96 12/30/24 12:50 Oxygen Delivery Method Room Air 12/30/24 12:50 BMI result Body Mass Index 38.0 Results Reviewed Results Reviewed: will review the xray in the office Assessment & Plan Assessment & Plan (1) Cough: Code(s): R05.9 - Cough, unspecified Qualifiers: Cough type: acute Qualified Code(s): R05.1 - Acute cough Plan Most likely COPD exacerbation vs pneumonia vs viral illness vs CHF plan - Continue current COPD management with daily prednisone and nebulizer treatments every four to six hours. - Monitor symptoms closely and consider hospital admission if no improvement. - Repeat chest x-ray to assess current status of pneumonia. - Consider changing antibiotics if pneumonia persists or worsens. - Echocardiogram scheduled to evaluate potential heart valve issue. - will call with the results and treat accordingly - Advised going to the ER for worseing SOB, fever, CP, etc - follow up with cardiology and pulm - follow up with PCP Orders: Orders XR chest 2V Today R05.9 - Cough, unspecified Coding Level of Care Code Est Pt Level 4 (83500) Diagnoses Acute cough R05.1 Cough type: acute
--- OUTSIDE RECORDS SUMMARY | 2024-12-30 14:41 | XMS_ITS | Encounter Summary ---
Author Organization [facility] Address [address] [place] [address] Phone Care Team Providers Care Tenant Relations Coordinator Name Role Phone Juan Jose Ellington SEAL EXTRUSION OPERATOR Primary Care Provider [phone] Encounter Details Date Type Department Care Team (Late st Contact Info) Description 10/25/2023 Documentation Only [facility] [place], [address] [place] [address] Tatyana Ritchie [address] [place] [address] Social History Tobacco Use Types [...] on filedocumented in this encounter Care Teams Tenant Relations Coordinator Relationship Specialty Start Date End Date Juan Jose Ellington NP [address] [facility] [place] [address] PCP - General 12/25/18 documented as of this encounter
--- OUTSIDE RECORDS SUMMARY | 2024-12-30 14:41 | XMS_ITS | Encounter Summary ---
Author Organization [facility] Address [address] [place] [address] Phone Care Team Providers Care Estimator Paperboard Boxes Name Role Phone Juan Jose Ellington LIBRARIAN HELPER Primary Care Provider [phone] Encounter Details Date Type Department Care Team (Late st Contact Info) Description 03/19/2024 Documentation Only [facility] [place], [address] [place] [address] Tatyana Ritchie [address] [place] [address] Social History Tobacco Use Types [...] on filedocumented in this encounter Care Teams Estimator Paperboard Boxes Relationship Specialty Start Date End Date Juan Jose Ellington NP [address] [facility] [place] [address] PCP - General 12/25/18 documented as of this encounter
--- OUTSIDE RECORDS SUMMARY | 2024-12-30 14:41 | XMS_ITS | Clinical Summary ---
Author Organization [facility] [place], Address [address] [place] [address] [place] [address] Phone Care Team Providers Care Accordion Tuner Name Role Phone Juan Jose Ellington NP Primary Care Provider [phone] Allergies No known active allergies Medications albuterol [...] age to complete this topic Insurance Medicaid [place] Medicare Medicare Medicaid [place] Care Teams Accordion Tuner Relationship Specialty Start Date End Date Juan Jose Ellington NP [address] [place] [address] PCP - General 12/25/18
--- OUTSIDE RECORDS SUMMARY | 2024-12-30 14:41 | XMS_ITS | Encounter Summary ---
Author Organization [facility] Address [address] [place] [address] Phone Care Team Providers Care Car Repairman Name Role Phone Juan Jose Ellington AUTOGLAZIER Primary Care Provider [phone] Encounter Details Date Type Department Care Team (Late st Contact Info) Description 03/19/2024 Documentation Only [facility] [place], [address] [place] [address] Tatyana Ritchie [address] [place] [address] Social History Tobacco Use Types [...] on filedocumented in this encounter Care Teams Car Repairman Relationship Specialty Start Date End Date Juan Jose Ellington NP [address] [place] [address] PCP - General 12/25/18 documented as of this encounter
--- OUTSIDE RECORDS SUMMARY | 2024-12-30 14:41 | XMS_ITS | Encounter Summary ---
Author Organization [facility] Address [address] [place] [address] Phone Care Team Providers Care Administrative Services Coordinator Name Role Phone Juan Jose Ellington BAR AND FILLER ASSEMBLER Primary Care Provider [phone] Encounter Details Date Type Department Care Team (Late st Contact Info) Description 09/18/2024 Documentation Only [facility] [place], [address] [place] [address] Tatyana Ritchie [address] [place] [address] Social History Tobacco Use Types [...] filedocumented in this encounter Care Teams Administrative Services Coordinator Relationship Specialty Start Date End Date Juan Jose Ellington NP [address] [place] [address] PCP - General 12/25/18 documented as of this encounter
--- OUTSIDE RECORDS SUMMARY | 2024-12-30 14:41 | XMS_ITS | Encounter Summary ---
Author Organization [facility] Address [address] [place] [address] Phone Care Team Providers Care Pipe Organ Mechanic Apprentice Name Role Phone Juan Jose Ellington COMMUNITY CENTER WORKER Primary Care Provider [phone] Encounter Details Date Type Department Care Team (Late st Contact Info) Description 10/25/2023 Documentation Only [facility] [place], [address] [place] [address] Tatyana Ritchie [address] [place] [address] Social History Tobacco Use Types [...] on filedocumented in this encounter Care Teams Pipe Organ Mechanic Apprentice Relationship Specialty Start Date End Date Juan Jose Ellington NP [address] [facility] [place] [address] PCP - General 12/25/18 documented as of this encounter
--- OUTSIDE RECORDS SUMMARY | 2024-12-30 14:42 | XMS_ITS | Encounter Summary ---
Author Organization [facility] Address [address] [place] [address] Phone Care Team Providers Care Caregiver Services Home Name Role Phone Juan Jose Ellington RECYCLING COLLECTIONS DRIVER Primary Care Provider [phone] Encounter Details Date Type Department Care Team (Late st Contact Info) Description 03/26/2024 Documentation Only [facility] [place], [address] [place] [address] Tatynaa Ritchie [address] [place] [address] Social History Tobacco Use Types [...] on filedocumented in this encounter Care Teams Caregiver Services Home Relationship Specialty Start Date End Date Juan Jose Ellington NP [address] [facility] [place] [address] PCP - General 12/25/18 documented as of this encounter
--- OUTSIDE RECORDS SUMMARY | 2024-12-30 14:42 | XMS_ITS | Encounter Summary ---
Author Organization [facility] Address [address] [place] [address] Phone Care Team Providers Care Document Management Specialist Name Role Phone Juan Jose Ellington DRESS SHOE INSPECTOR Primary Care Provider [phone] Encounter Details Date Type Department Care Team (Late st Contact Info) Description 10/12/2023 Documentation Only [facility] [place], [address] [place] [address] Tatyana Ritchie [address] [place] [address] Social History Tobacco Use Types [...] on filedocumented in this encounter Care Teams Document Management Specialist Relationship Specialty Start Date End Date Juan Jose Ellington NP [address] [facility] [place] [address] PCP - General 12/25/18 documented as of this encounter
--- OUTSIDE RECORDS SUMMARY | 2024-12-30 14:42 | XMS_ITS | Clinical Summary ---
Author Organization 175 [facility] Address [address] [place] [address] Phone Care Team Providers Care Manager Non Profit Name Role Phone Juan Jose Ellington NP [...] Ventolin HFA 90 mcg/actuation inhalerIndicati ons:Emphysema, unspecified ([facility] [place] [facility] V28) INHALE 2 PUFFS INTO THE LUNGS EVERY 4 HOURS NEEDED FOR COUGH OR WHEEZING FOR UP TO 30 DAYS. 18 each 11 5 Active Oxygen Therapy via Nasal Cannula (O2) gas Inhale 2 L/min by mouth continuously. via nasal canula on exertion 5 Active albuterol 2.5 mg /3 mL (0.083 %) nebulizer solutionIndicat ions:Chronic obstructive pulmonary disease, unspecified COPD type ([facility] V24, [facility] V28) Take 3 mL (2.5 mg total) by nebulization every 6 (six) hours if needed for wheezing. 300 mL 2 5 05/04/19 26 Active predniSONE (DELTASONE) 20 mg tablet 2 tab po qd x 1 and then 1 tab po qd x 6 days 8 each 5 Active predniSONE (DELTASONE) 10 mg tabletIndicatio ns:Chronic obstructive pulmonary disease, unspecified COPD type ([facility] [place], [facility] V28) TAKE 1 TABLET BY MOUTH 1 TIME EACH DAY. 30 tablet 1 5 Active amiodarone (PACERONE) 100 mg tablet Take [...] for at least 30 minutes after. Active Active Problems Problem Noted Date Diagnosed Date Bipolar disorder ([facility] [place], [facility] [place]) 09/21 COPD (chronic obstructive pu lmonary disease) ([facility] [place], [facility] [place]) 10/11/2018 Hyperlipidemia 10/11/2018 Hypertension 10/11/2018 Pulmonary nodule 10/11/2018 Overview (04/12/2024): RUL-05/30/18 S/p VATS & wedge resection-no malignancy Sarcoidosis of lung ([facility] [place]) 10/11/2018 Encounters Date Type Department Care Team Description 12/11/2024 9:00 AM EDT Office Visit Pulmonology - [place] [address] [facility] [address] [place] [address] Sarah Breaux MD Sarcoidosis of lung ([facility] V24) (Primary Dx); Chronic obstructive pulmonary disease, unspecified COPD type ([facility]/HCC V24, [facility] V28); Pulmonary nodule 12/11/2024 Telephone Pulmonology - [place] [address] [facility] [address] [place] [address] Dhaval Yang MA from Last 3 Months Immunizations Immunization Administration Dates Next Due Moderna SARS-CoV-2 COVID-19, mRNA, LNP-S, preservative free 05/30/2020,05/02/2020 Surgical History Surgery Date Site/Laterality Comments OTHER SURGICAL HISTORY 04/27/2018 Right PROCEDURE: NM BRNCHSC INCL FLUOR GDNCE DX W/CELL WASHG SPX; COMMENT: negative malignancy TUBAL LIGATION PROCEDURE: HISTORICAL TUBAL LIGATION OTHER SURGICAL HISTORY 05/30/2018 Right PROCEDURE: NM BRONCHOSCOPY W/CPTR-ASST IMAGE-GUIDED NAVIGATION; COMMENT: da Arthur/VATS RUL wedge resection w/extensive pneumolysis OTHER SURGICAL HISTORY PROCEDURE: NM CARDIOVERSION ELECTIVE ARRHYTHMIA EXTERNAL Medical History Medical History Date Comments COPD (chronic obstructive pu lmonary disease) ([facility] V24, [facility] V28) 10/11/2018 DX:COPD (chronic o bstructive pulmonary disease) (HCC) Sarcoidosis of lung ([facility] V24) 10/11/2018 DX:Sarcoidosis of lung (HCC) Pulmonary nodule 10/11/2018 DX:Pulmonary no dule; COMMENT: RUL-05/30/18 S/p VATS & wedge resection-no malignancy Bipolar disorder ([facility]/HCC V2 4, [facility] V28) 10/11/2018 DX:Bipolar disorder (HCC) Hypertension 10/11/2018 DX:Hypertension Hyperlipidemia 10/11/2018 DX:Hyperlipidemi a SHARON (acute kidney injury) ([facility] V24) DX:SHARON (acute kidney injury) (HCC) Atrial fibrillation ([facility] V24, [facility] V28) DX:Atrial fibrillation (HCC) Renal disease DX:Renal disease Leukocytosis DX:Leukocytosis [place] nephropathy DX:[place] n ephropathy Mediastinal lymphadenopathy DX:M ediastinal lymphadenopathy [...] 1:15 PM EST Ancillary Procedure Pulmonology - [place] [address] [phone] 04/14/2025 2:15 PM EST Office Visit Pulmonology - [place] 175 [facility] [address] [place] [phone] Sarah Breaux MD [address] [place] [phone] Health Maintenance Due Date Last Done Comments [...] EDT Narrative 06/13/2023 3:45 PM EDT [facility] Diagnostic Imaging Department [address] [place] [address] Patient: CHARLESDARIANANIKKI /Age/Sex: 1945 - 77 - F Unit#: [id number] Location/Status: [facility]em[facility] [place] Ordering Physician: MULUGETA SU MD CT Lung [...] by: EDGARD TORRES MD Dic Date/Time: 06/13/23 1512 Sign date/Time: 06/13/23 1549 Procedure Note Edgard Torres MD - 10/09/2023 [facility] Diagnostic Imaging Department [address] [place] [address] Patient: HARIS HURTADORA Corley /Age/Sex: 1945 - 77 - F Unit#: [id number] Location/Status: [facility] Mnemonic/Ordering Site: [facility] Ordering Physician: MULUGETA SU MD CT Lung [...] Insurance MEDICARE [place]ICAID [place] Care Teams Manager Non Profit Relationship Specialty Start Date End Date Juan Jose Ellington NP [address], [place] PCP - General 06/26/18
--- OUTSIDE RECORDS SUMMARY | 2024-12-30 14:42 | XMS_ITS | Encounter Summary ---
Author Organization [facility] Address [address] [place] [address] Phone Care Team Providers Care Chemical Recovery Operator Name Role Phone Juan Jose Ellington ENVELOPE MAKER Primary Care Provider [phone] Encounter Details Date Type Department Care Team (Late st Contact Info) Description 10/25/2023 Documentation Only [facility], [address] [place] [address] Tatyana Ritchie [address] [place] [address] Social History Tobacco Use Types [...] on filedocumented in this encounter Care Teams Chemical Recovery Operator Relationship Specialty Start Date End Date Juan Jose Ellington NP [address] [place] [address] PCP - General 12/25/18 documented as of this encounter
== END 2024-12-30 14:04 | disposition home or self-care (01) ==
PROVIDERS: PCP Nurse Practitioner Family; Visit Provider Physician Assistant Medical
DX: R05.1 Acute cough (principal)

== ENCOUNTER 2024-12-30 12:32 | Outpatient (REF) | payer MEDICARE, MEDICAID, SELFPAY ==
--- NOTE | ~2024-12-30 | XR_ITS ---
EXAMINATION: XR CHEST CLINICAL INFORMATION: R05.9 - Cough, unspecified COMPARISON: 12/05/2024 TECHNIQUE: 2 views of the chest were obtained. FINDINGS: Again seen are surgical changes with a suture line radiating anterolaterally from the right hilum. Overall, the appearance of the lungs is stable. There is mild biapical pleural thickening. Heart silhouette is mildly enlarged. XR/XR chest 2V IMPRESSION: Stable chest x-ray with postsurgical changes and borderline cardiomegaly. Electronically signed by: Jaxson Joseph MD 12/30/2024 02:21 PM LINDSEY
== END 2024-12-30 12:33 | disposition home or self-care (01) ==
LOC: HO.HMGCX 12:32
PROVIDERS: PCP Nurse Practitioner Family; Visit Provider Physician Assistant Medical
DX: R05.1 Acute cough (principal)
CPT/HCPCS: 71046; 99212

== ENCOUNTER → 2024-12-30 14:01 | Outpatient (BNV) | payer MEDICARE, MEDICAID, SELFPAY | PROVIDERS: PCP Nurse Practitioner Family; Visit Provider Radiology Diagnostic Radiology | DX: I51.7 Cardiomegaly (principal) | CPT/HCPCS: 71046 ==

== ENCOUNTER → 2025-01-09 23:59 | Outpatient (BNV) | payer MEDICARE, MEDICAID, SELFPAY | PROVIDERS: PCP Nurse Practitioner Family; Visit Provider Nurse Practitioner Family | DX: I13.0 Hypertensive heart and chronic kidney disease with heart failure and stage 1 through stage 4 chronic kidney disease, or unspecified chronic kidney disease (principal); I50.32 Chronic diastolic (congestive) heart failure; N18.4 Chronic kidney disease, stage 4 (severe) | CPT/HCPCS: G0179 ==

== ENCOUNTER 2025-01-13 13:04 | Outpatient (AMB) | payer MEDICARE, MEDICAID, SELFPAY ==
--- NOTE | 2025-01-13 13:06 | MHC.OFFVIS ---
Intake Visit Reasons: 2M/PVR/UA Intake Note: Patient presents today for a 2 mo follow up Urology Medication:Cranberry, nitrofuratoin Blood Thinner:Apixaban Antibiotic Allergies:Sulfa PVR:13 mls Ripsaw Matcher Required: No Accompanied by: Unknown Allergies Sulfa (Sulfonamide Antibiotics) (SULFA (SULFONAMIDE ANTIBIOTICS)) Allergy (Severe, Verified 01/13/25 13:29) RASH, Anaphylaxis Medication List - Last Reconciled 01/13/25 by TRINIDAD Lao acetaminophen 325 mg PO QID PRN 7 days albuterol sulfate 90 mcg/actuation (Ventolin HFA) 2 puffs inhalation Q6H PRN amiodarone 100 mg (1/2 x 200 mg) PO DAILY apixaban (Eliquis) 5 mg PO BID carbidopa-levodopa 25-100 mg ER 1 tab PO BID 30 days cholecalciferol (vitamin D3) 50 mcg PO DAILY cranberry 1,000 mg PO DAILY [disposable bed pads As directed, uses 6 per day] [disposable gloves As directed, uses 8 per day to provide incontinence care] [disposable incontinence wipes As directed, uses 10 per day to provide incontinence care] [disposable pull up briefs As directed, uses 8 per day] wllejotwdcz-ftrjxnruo-wtkcwffi 100-62.5-25 mcg (Trelegy Ellipta) 1 ea inhalation DAILY furosemide 20 mg PO Q OTHER DAY hydroxyzine HCl 10 mg PO DAILY PRN lamotrigine 50 mg PO BEDTIME metoprolol succinate ER 50 mg (2 x 25 mg) PO DAILY nitrofurantoin macrocrystal 50 mg PO DAILY olanzapine 7.5 mg PO BEDTIME prednisone 10 mg PO DAILY prednisone 10 mg PO DAILY simvastatin 20 mg PO BEDTIME walker Standard walker, no wheels [washable bed pads As directed] HPI Comments Details: Nikki is a very pleasant 79-year-old female patient of Dr. Leal who was accompanied by her daughter at today's office visit. She has a past medical history of paroxysmal AFib, emphysema, tardive dyskinesia, tremors, dyslipidemia, kidney disease, bipolar disorder, vitamin-D deficiency, COPD, sarcoidosis, hypertension, and lithium neuropathy. She presents to the office today for follow-up of her recurrent urinary tract infections. In discussion with the patient today she reports to be doing and feeling well. She reports compliance with prophylactic Macrobid as prescribed. She denies having had any UTI and or UTI like symptoms since her last office visit here. In office urinalysis results reviewed with the patient and her daughter today. PVR 13 mL. We did discuss Estrace cream in the setting of recurrent urinary tract infections however she would like to continue with prophylactic antibiotic at this time. She reports her typical UTI like symptoms are dysuria. She reports typically she also follows up with Nephrology regarding her chronic kidney disease. She does have a history of urinary incontinence in baseline urinary status with adult diapers as well as timed/scheduled voiding. She denies hematuria, dysuria, foul smelling urine, flank pain, fever, and or chills. She does have a previous history of nicotine dependence however quit 12-13 years ago. Previous workup has included an office cystoscopy with Dr. Hauser 11/14 that noted: Mild bladder wall thickening, minimal erythema noted, no suspicious bladder lesions. We did discussed further treatment options of urinary incontinence and risks and benefits of these treatment options. All questions were answered. She otherwise offers no other issues or concerns at this time. Results - Urine cultures on 07/06/24 and 07/22/24 positive for Klebsiella pneumoniae - Abdominal ultrasound in March showed benign right renal cyst and bilateral cortical thinning of the kidneys [facility] Medical History Paroxysmal atrial fibrillation Emphysema of lung Tardive dyskinesia Coarse tremors Hypersomnia Snoring SHARON (acute kidney injury) Mediastinal lymphadenopathy Atrial fibrillation Dyslipidemia Kidney disease Leukocytosis Necrotizing granulomatous inflammation of lung Bipolar 1 disorder Vitamin D deficiency COPD (chronic obstructive pulmonary disease) Sarcoidosis HTN (hypertension) [place] nephropathy Surgical History History of cardioversion History of bronchoscopy Family History Child No Financial Resp No problems noted. 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 Current occupational exposures/hazards: No Cognitive needs: No Hearing needs: No Vision needs: Yes Review of Systems Const All systems reviewed & are unremarkable except as noted in HPI and below Reports no additional complaints Eyes Reports no additional complaints ENT Reports no additional complaints Card Reports no additional complaints Resp Reports no additional complaints GI Reports no additional complaints Reports as per HPI Musc Reports no additional complaints Skin/Breast Reports system reviewed and no additional complaints, except as documented Neuro Reports no additional complaints Psych Reports no additional complaints Endo Reports no additional complaints Ihsan/Lymph Reports no additional complaints Aller/Immun Reports no additional complaints Physical Exam Const General: cooperative, healthy appearing, comfortable, no acute distress, well developed, alert and awake Orientation/consciousness: patient oriented x3 Limitations: wheelchair HEENT Head: Yes normal to inspection, Yes normocephalic and Yes atraumatic Ears: hearing grossly normal bilaterally Eyes General: appearance normal, both eyes and all related structures Neck Neck: Yes normal visual inspection and Yes trachea midline Chest Chest palpation & inspection: normal inspection of the chest Resp Effort & Inspection: normal respiratory effort and able to speak in complete sentences Cardio Rate: regular rate GI Inspection: Yes normal to inspection General: Yes no CVA tenderness Back/Spine/Pelvis Back: no CVA tenderness Skin General skin exam: no rashes or lesions noted Neuro General: patient oriented x3 Extrem General: Yes normal to inspection Psych Appearance: grossly normal and well kempt Mental Status: mental status grossly normal Speech and movement: Normal speech and movement present and Clear speech present Affect: normal affect Attitude: cooperative Thought process: Normal thought process present Thought content: Normal thought content present Insight: Fair insight present (Psych) Judgement: Fair judgement present (Psych) Office Procedures Post Void Residual Post Residual Void Post Void Residual (PVR): 13 [id number] Void Residual by ultrasound Results AMB Urinalysis, Automated UA Leukoctes 0 Sudheer/uL Last Edit by MELO Noble on 01/13/25 13:18 UA Nitrite Negative Last Edit by MELO Noble on 01/13/25 13:18 UA Urobilinogen 0.2 mg/dL Last Edit by Barbara Colon, CCMA on 01/13/25 13:18 UA Protein 0 mg/dL Last Edit by Barbara Colon, [facility] on 01/13/25 13:18 UA pH 6.0 Last Edit by Barbara Colon, CCMA on 01/13/25 13:18 UA Blood 0 Bao/uL Last Edit by Barbara Colon, [facility] on 01/13/25 13:18 UA Specific [place] 1.010 Last Edit by Barbara Colon, CCMA on 01/13/25 13:18 UA Ketone Negative Last Edit by Barbara Colon, CCMA on 01/13/25 13:18 UA Bilirubin 0 mg/dL Last Edit by Barbara Colon, [facility] on 01/13/25 13:18 UA Glucose 0 mg/dL Last Edit by Barbara Colon, [facility] on 01/13/25 13:18 Results Reviewed Results Reviewed: Laboratory Last Values Urine pH (Auto) 6.0 01/13/25 13:17 Specific [place] (Auto) 1.010 01/13/25 13:17 Urine Protein (Auto) 0 mg/dL 01/13/25 13:17 Glucose (UA)(Auto) 0 mg/dL 01/13/25 13:17 Urine Ketones (Auto) Negative 01/13/25 13:17 Urine Blood (Auto) 0 Bao/uL 01/13/25 13:17 Urine Nitrite (Auto) Negative 01/13/25 13:17 Urine Bilirubin (Auto) 0 mg/dL 01/13/25 13:17 Urine Urobilinogen (Auto) 0.2 mg/dL 01/13/25 13:17 Leukocyte Esterase (Auto) 0 Sudheer/uL 01/13/25 13:17 Assessment & Plan Assessment & Plan (1) Renal cyst: Code(s): N28.1 - Cyst of kidney, acquired Category: Medical (2) Microhematuria: Code(s): R31.29 - Other microscopic hematuria Category: Medical (3) Dysuria: Code(s): R30.0 - Dysuria Category: Medical (4) Urinary incontinence: Code(s): R32 - Unspecified urinary incontinence Category: Medical (5) Recurrent UTI: Code(s): N39.0 - Urinary tract infection, site not specified Category: Medical Plan In office urinalysis results reviewed with the patient today; as noted above. PVR 13 mL. We did discussed further treatment options of urinary incontinence and risks and benefits of these treatment options. Will continue with surveillance monitoring at this time. Continue prophylactic Macrobid as discussed and prescribed. We did discuss trial of Estrace cream verses Vagifem Discussed UTI prevention with D mannose supplement, vitamin-C, increasing fluid intake, behavioral therapy with timed voiding, perineal hygiene and postcoital voiding, and management of constipation with stool softeners and increased fiber intake. She currently denies any bothersome urinary issues. She reports be happy with current voiding parameters. Follow-up in 3-6 months with PVR; or sooner with any issues, concerns, and or questions. Patient Instructions: The patient had an opportunity to ask questions regarding the treatment plan. All questions were answered. Physical exam, labs, and imaging were discussed and reviewed in detail. As well as risks, benefits, and discussion of treatment choices. No major barriers to understanding were identified. The patient expressed understanding and agreement with the above treatment plan. The patient was made aware they should contact our office by phone for worsening of their current condition, the appearance of new symptoms, or with any questions or concerns. Compliance is encouraged with any medications and follow up testing that is ordered. It is a privilege to be allowed the opportunity to participate in? your urological care.? Again, if you have any questions or concerns If you have any questions or concerns please do not hesitate to contact me. The office is [phone]. This note is constructed using voice recognition software. While every effort has been made to ensure accuracy child support specialist errors may have been included. Yours sincerely, TRINIDAD Lao Coding Level of Care Code Complex visit Add On G2211 Diagnoses Renal cyst N28.1 Microhematuria R31.29 Dysuria R30.0 Urinary incontinence R32 Recurrent UTI N39.0 CPT Codes Post Residual Void - PVR CPT Code: 32215-Ctgx Void Residual by ultrasound ([id number])
--- OUTSIDE RECORDS SUMMARY | 2025-01-13 17:39 | XMS_ITS | Clinical Summary ---
Author Organization 175 [facility] Address [address] [place] [address] Phone Care Team Providers Care Night Cleaner Name Role Phone Juan Jose Ellington NP Primary Care Provider [phone] Allergies Active Allergy Reactions Criticality Noted Date Comments Sulfa (Sulfonamide Antibiotics) 07/25/2018 No reaction documented. Medications acetaminophen (TYLENOL) 325 mg capsule Take by [...] Ventolin HFA 90 mcg/actuation inhalerIndicati ons:Emphysema, unspecified (CMS/HCC V24, CMS/HCC V28) INHALE 2 PUFFS INTO THE LUNGS EVERY 4 HOURS NEEDED FOR COUGH OR WHEEZING FOR UP TO 30 DAYS. 18 each 04/16/19 25 Active Oxygen Therapy via Nasal Cannula (O2) gas Inhale 2 L/min by mouth continuously. via nasal canula on exertion 04/11/19 25 Active albuterol 2.5 mg /3 mL (0.083 %) nebulizer solutionIndicat ions:Chronic obstructive pulmonary disease, unspecified COPD type (CMS/HCC V24, CMS/HCC V28) Take 3 mL (2.5 mg total) by nebulization every 6 (six) hours if needed for wheezing. 300 mL 2 05/04/19 25 026 Active predniSONE (DELTASONE) 20 mg tablet 2 tab po qd x 1 and then 1 tab po qd x 6 days 8 each 08/30/19 25 Active predniSONE (DELTASONE) 10 mg tabletIndicatio ns:Chronic obstructive pulmonary disease, unspecified COPD type (CMS/HCC V24, CMS/HCC V28) TAKE 1 TABLET BY MOUTH 1 [...] for at least 30 minutes after. Active Trelegy Ellipta 100-62.5-25 mcg inhaler INHALE 1 PUFF INTO THE LUNGS DAILY FOR 30 DAYS. 60 each 01/01/20 25 Active azithromycin (ZITHROMAX) 250 mg tablet TAKE 2 TABLETS BY MOUTH TODAY, THEN TAKE 1 TABLET DAILY FOR 4 DAYS DIRECTED 12/06/19 25 Active carbidopa-levod opa CR (SINEMET CR) 25-100 mg per CR tablet TAKE 1 TABLET BY MOUTH TWICE A DAY 30 MINS AFTER A MEAL BUT MAY TAKE WITH A CRACKER 11/29/19 25 Active cefuroxime (CEFTIN) 250 mg tablet Take 1 tablet (250 mg total) by mouth 1 (one) time each day. for 7 days 09/24/19 25 Active cephalexin (KEFLEX) 250 mg capsule take 1 capsule orally every 8 hours for 7 days 08/31/19 25 Active ciprofloxacin (CIPRO) 500 mg tablet Take 1 tablet (500 mg total) by mouth 1 (one) time each day. for 5 days 08/08/19 25 Active divalproex (DEPAKOTE) [address] tablet Take 1 tablet (250 mg total) by mouth. Active dextromethorpha n-guaiFENesin (ROBITUSSIN-DM) 10-100 mg/5 mL syrup TAKE 5 ML ORALLY EVERY 4 HOURS NEEDED FOR COUGH 04/17/19 25 Active ofloxacin (OCUFLOX) 0.3 % ophthalmic solution PLACE 1-2 DROPS INTO AFFECTED EYE(S) EVERY 2-4 HOURS X2 DAYS, THEN 1-2 DROPS 4X DAILY DAYS 3-7 04/25/19 25 Active albuterol HFA (Ventolin HFA) 90 mcg/actuation inhaler INHALE 2 PUFFS INTO THE LUNGS EVERY 4 HOURS NEEDED FOR COUGH OR WHEEZING FOR UP TO 30 DAYS. 03/21/19 24 Active cefuroxime (CEFTIN) 500 mg tablet Take 1 tablet (500 mg total) by mouth 1 (one) time each day. for 7 days 07/23/19 25 Active Trelegy Ellipta 100-62.5-25 mcg inhaler INHALE 1 PUFF INTO THE LUNGS DAILY FOR 30 DAYS. 60 each 11 01/04/20 24 025 Discontin ued(Reord er) Active Problems Problem Noted Date Diagnosed Date Bipolar disorder ([facility] V24, [facility] V28) 09/21 COPD (chronic obstructive pu lmonary disease) ([facility] V24, [facility] V28) 10/11/2018 Hyperlipidemia 10/11/2018 Hypertension 10/11/2018 Pulmonary nodule 10/11/2018 Overview (04/12/2024): RUL-05/30/18 S/p VATS & wedge resection-no malignancy Sarcoidosis of lung ([facility] V24) 10/11/2018 Encounters Date Type Department Care Team Description 12/11/2024 9:00 AM EDT Office Visit Pulmonology - [address] [address] Sarah Breaux MD Sarcoidosis of lung ([facility] V24) (Primary Dx); Chronic obstructive pulmonary disease, unspecified COPD type ([facility] V24, [facility] V28); Pulmonary nodule 12/11/2024 Telephone Pulmonology - [place] [address] [facility] [address] [place] [address] Dhaval Yang MA from Last 3 Months Immunizations Immunization Administration Dates Next Due Moderna SARS-CoV-2 COVID-19, mRNA, LNP-S, preservative free 05/30/2020,05/02/2020 Surgical History Surgery Date Site/Laterality Comments OTHER SURGICAL HISTORY 04/27/2018 Right PROCEDURE: [place] BRNCHSC INCL FLUOR GDNCE DX W/CELL WASHG SPX; COMMENT: negative malignancy TUBAL LIGATION PROCEDURE: HISTORICAL TUBAL LIGATION OTHER SURGICAL HISTORY 05/30/2018 Right PROCEDURE: [place] BRONCHOSCOPY W/CPTR-ASST IMAGE-GUIDED NAVIGATION; COMMENT: da Arthur/VATS RUL wedge resection w/extensive pneumolysis OTHER SURGICAL HISTORY PROCEDURE: [place] CARDIOVERSION ELECTIVE ARRHYTHMIA EXTERNAL Medical History Medical History Date Comments COPD (chronic obstructive pu lmonary disease) ([facility] V24, [facility] V28) 10/11/2018 DX:COPD (chronic o bstructive pulmonary disease) (HCC) Sarcoidosis of lung ([facility] V24) 10/11/2018 DX:Sarcoidosis of lung (HCC) Pulmonary nodule 10/11/2018 DX:Pulmonary no dule; COMMENT: RUL-05/30/18 S/p VATS & wedge resection-no malignancy Bipolar disorder ([facility] V2 4, [facility] V28) 10/11/2018 DX:Bipolar disorder (HCC) Hypertension 10/11/2018 DX:Hypertension Hyperlipidemia 10/11/2018 DX:Hyperlipidemi a SHARON (acute kidney injury) ([facility] V24) DX:SHARON (acute kidney injury) (HCC) Atrial fibrillation ([facility] V24, [facility] V28) DX:Atrial fibrillation (HCC) Renal disease DX:Renal disease Leukocytosis DX:Leukocytosis Coral nephropathy DX:Coral n ephropathy Mediastinal lymphadenopathy DX:M ediastinal lymphadenopathy Necrotizing granulomatous inflammation of lung (CMS/[facility] V24, [facility] V28) DX:Necrotizing granulomatous inflammation of lung [...] Information Value Date Recorded Sex Assigned at Female 01/13/2025 9:51 AM EST Legal Sex Female 11:10 PM EST Gender [...] Care Team (Late st Contact Info) Description 03/13/2025 11:00 AM EST Appointment [facility] CT Scan [address] [place] [phone] 04/14/2025 1:15 PM EST Ancillary Procedure Pulmonology [facility] [address] [phone] 04/14/2025 2:15 PM EST Office Visit Pulmonology [facility] [address] [phone] Sarah Breaux MD [address] [place] [phone] Health Maintenance Due Date Last Done Comments [...] AM EDT Narrative 06/13/2023 3:45 PM EDT [facility] Diagnostic Imaging Department [address] [place] [address] Patient: NIKKI HURTADO /Age/Sex: 1945 - 77 - F Unit#: [id number] Location/Status: SPDICATLS/REG CLI Mnemonic/Ordering Site: [facility] Ordering Physician: JOHANNA SU MD [...] by: EDGARD TORRES MD Dic Date/Time: 06/13/23 1519 Sign date/Time: 06/13/23 0888 Procedure Note Edgard Torres MD - 10/09/2023 [facility] Diagnostic Imaging Department [address] [place] [address] Patient: NIKKI HURTADO Jory /Age/Sex: 1945 - 77 - F Unit#: [id number] Location/Status: [facility] Mnemonic/Ordering Site: [facility] Ordering Physician: JOHANNA SU MD [...] Insurance MEDICARE [place]ICAID [place] Care Teams Night Cleaner Relationship Specialty Start Date End Date Juan Jose Ellington NP [address] [place], [place] PCP - General 06/26/18
== END 2025-01-13 13:31 | disposition home or self-care (01) ==
LOC: HO.HUSH 13:05
PROVIDERS: PCP Nurse Practitioner Family; Visit Provider Nurse Practitioner Family
DX: N28.1 Cyst of kidney, acquired (principal); R31.29 Other microscopic hematuria; R30.0 Dysuria; R32 Unspecified urinary incontinence; N39.0 Urinary tract infection, site not specified
CPT/HCPCS: 99213; G2211

== ENCOUNTER → 2025-01-13 13:04 | Outpatient (BNVA) | payer MEDICARE, MEDICAID, SELFPAY | PROVIDERS: PCP Nurse Practitioner Family; Visit Provider Nurse Practitioner Family | DX: N39.0 Urinary tract infection, site not specified (principal); R30.0 Dysuria; N18.9 Chronic kidney disease, unspecified; N28.1 Cyst of kidney, acquired; R31.29 Other microscopic hematuria; R32 Unspecified urinary incontinence | CPT/HCPCS: 51798; 99212 ==

== ENCOUNTER 2025-01-14 09:59 | Outpatient (REF) | payer MEDICARE, MEDICAID, SELFPAY ==
--- OUTSIDE RECORDS SUMMARY | 2025-01-14 11:59 | XMS_ITS | Clinical Summary ---
Author Organization 175 [facility] Address [address] [place] [address] Phone Care Team Providers Care Chemistry Account Manager Name Role Phone Juan Jose Ellington NP Primary Care Provider [phone] Allergies Active Allergy Reactions Criticality Noted Date [...] Problem Noted Date Diagnosed Date Bipolar disorder ([facility] V24, [facility] V28) 09/21 COPD (chronic obstructive pu lmonary disease) ([facility] V24, [facility] V28) 10/11/2018 Hyperlipidemia 10/11/2018 Hypertension 10/11/2018 Pulmonary nodule 10/11/2018 Overview (04/12/2024): RUL-05/30/18 S/p VATS & wedge resection-no malignancy Sarcoidosis of lung ([facility] V24) 10/11/2018 Encounters Date Type Department Care Team Description 12/11/2024 9:00 AM EDT Office Visit Pulmonology - [address] [address] Sarah Breaux MD Sarcoidosis of lung ([facility] V24) (Primary Dx); Chronic obstructive pulmonary disease, unspecified COPD type ([facility] V24, [facility] V28); Pulmonary nodule 12/11/2024 Telephone Pulmonology - [place] 175 [facility] [address] [place] [address] Dhaval Ynag MA from Last 3 Months Immunizations Immunization Administration Dates Next Due Moderna SARS-CoV-2 COVID-19, mRNA, LNP-S, preservative free 05/30/2020,05/02/2020 Surgical History Surgery Date Site/Laterality Comments OTHER SURGICAL HISTORY 04/27/2018 Right PROCEDURE: [place] BRNCHSC INCL FLUOR GDNCE DX W/CELL WASHG SPX; COMMENT: negative malignancy TUBAL LIGATION PROCEDURE: HISTORICAL TUBAL LIGATION OTHER SURGICAL HISTORY 05/30/2018 Right PROCEDURE: [facility] BRONCHOSCOPY W/CPTR-ASST IMAGE-GUIDED NAVIGATION; COMMENT: da Arthur/VATS RUL wedge resection w/extensive pneumolysis OTHER SURGICAL HISTORY PROCEDURE: [place] CARDIOVERSION ELECTIVE ARRHYTHMIA EXTERNAL Medical History Medical History Date Comments COPD (chronic obstructive pu lmonary disease) ([facility] V24, [facility] V28) 10/11/2018 DX:COPD (chronic o bstructive pulmonary disease) (HCC) Sarcoidosis of lung ([facility] V24) 10/11/2018 DX:Sarcoidosis of lung (HCC) Pulmonary nodule 10/11/2018 DX:Pulmonary no dule; COMMENT: RUL-05/30/18 S/p VATS & wedge resection-no malignancy Bipolar disorder ([facility] V2 4, [facility] V28) 10/11/2018 DX:Bipolar disorder (HCC) Hypertension 10/11/2018 DX:Hypertension Hyperlipidemia 10/11/2018 DX:Hyperlipidemi a SHARON (acute kidney injury) ([facility] V24) DX:SHARON (acute kidney injury) (HCC) Atrial fibrillation ([facility] V24, [facility] V28) DX:Atrial fibrillation (HCC) Renal disease DX:Renal disease Leukocytosis DX:Leukocytosis [place]ircrest nephropathy DX:Fircrest n ephropathy Mediastinal lymphadenopathy DX:M ediastinal lymphadenopathy Necrotizing granulomatous inflammation of lung ([facility] V24, [facility] V28) DX:Necrotizing granulomatous inflammation of [...] Info) Description 03/13/2025 11:00 AM EST Appointment [facility] CT Scan [address] [place] [phone] 04/14/2025 1:15 PM EST Ancillary Procedure Pulmonology [facility] [address] [phone] 04/14/2025 2:15 PM EST Office Visit Pulmonology [facility] [address] [phone] Sarah Breaux MD [address] [place] [phone] Health Maintenance Due Date Last Done Comments [...] EDT Narrative 06/13/2023 3:45 PM EDT [facility] Diagnostic Imaging Department [address] [place] [address] Patient: NIKKI HURTADO /Age/Sex: 1945 - 77 - F Unit#: [id number] Location/Status: SPDICATLS/REG CLI Mnemonic/Ordering Site: [facility] Ordering Physician: JOHANNA SU MD CT [...] by: EDGARD TORRES MD Dic Date/Time: 06/13/23 151 Sign date/Time: 06/13/23 3438 Procedure Note Edgard Torres MD - 10/09/2023 [facility] Diagnostic Imaging Department [address] [place] [address] Patient: NIKKI HURTADO Jory /Age/Sex: 1945 - 77 - F Unit#: [id number] Location/Status: [facility] Mnemonic/Ordering Site: [facility] Ordering Physician: JOHANNA SU MD CT [...] Insurance [place]ICARE [place]ICAID [place] Care Teams Chemistry Account Manager Relationship Specialty Start Date End Date Juan Jose Ellington NP [address] [place], [place] PCP - General 06/26/18
[2025-01-14 14:15] LABS: MANUAL DIFF FLAG NO
[2025-01-14 14:34] LABS: Hematocrit 41.2 % (37.0-47.0); Hemoglobin 12.6 g/dl (12.0-16.0); Imm Gran Abs Auto 0.15 X10*3/uL (0.00-0.03); Imm Gran Pct Auto 1.4 % (0.0-0.4); Lymphocytes Absolute Auto 1.6 X10*3/uL (1.2-4.9); Mean Corpuscular HGB Conc 30.6 g/dl (31.0-35.0); Mean Corpuscular Hemoglobin 30.6 pg (27.0-33.0); Mean Corpuscular Volume 100.0 fL (80.0-98.0); NRBC Abs Auto 0.000 X10*3/uL (0.0-0.012); NRBC Pct Auto 0.0 /100WBC (0.0-0.2); Platelet Count 229 X10*3/uL (160-400); Red Blood Count 4.12 X10*6/uL (4.20-5.50); White Blood Count 10.5 X10*3/uL (4.8-10.8)
[2025-01-14 14:53] LABS: Alanine Aminotransferase 12 U/L (0-31); Albumin Level 4.1 g/dL (3.5-5.0); Alkaline Phosphatase 64 U/L (39-117); Anion Gap 8 (12-20); Aspartate Amino Transferase 21 U/L (5-31); Blood Urea Nitrogen 31 mg/dL (9-16); Calcium 9.5 mg/dL (8.4-10.2); Carbon Dioxide 30 mmol/L (22-29); Chloride 110 mmol/L (96-108); Cholesterol 195 mg/dL (<200); Estimated Glomerular Filt Rate 24; HDL Cholesterol 55 mg/dL (>40); Potassium 4.0 mmol/L (3.3-5.1); Sodium 144 mmol/L (135-145); Total Protein 6.4 g/dL (6.5-8.0); Triglycerides 125 mg/dL (<150)
== END 2025-01-14 10:00 | disposition home or self-care (01) ==
LOC: HO.HMGCLDS 09:59
PROVIDERS: PCP Nurse Practitioner Family; Visit Provider Nurse Practitioner Family
DX: I10 Essential (primary) hypertension (principal)
CPT/HCPCS: 36415; 80053; 80061; 84443; 85025

== ENCOUNTER → 2025-01-15 13:07 | Outpatient (REF) | payer MEDICARE, MEDICAID, SELFPAY ==
--- NOTE | 2025-01-15 13:10 | CA_ITS ---
Transthoracic Echocardiogram Patient (Last, First, Middle): Nikki Borjas J Gender: Female Date of : 1945 Age: 79 Procedure Date: 01/15/2025 Procedure Type: Transthoracic Echocardiogram Location: OP Height: 154.94 cm Weight: 91.17 kg BSA: 1.89 m2 Heart Rate: bpm BP: 120 / 80 mmHg Assembling Fabricator: CATRINA Referring MD: Steven Castañeda MD Symptoms: I34.81 - Nonrheumatic mitral (valve) annulus calcification Study Quality: Fair Conclusions: - Normal left ventricular cavity size. There is normal left ventricular wall thickness. The left ventricular systolic function is hyperdynamic. The visually estimated ejection fraction is >70%. - Normal right ventricular cavity size and systolic function. - The left atrium is severely dilated. - There is severe mitral annular calcification. - There is moderate mitral valve regurgitation. - There is severe mitral valve stenosis. - Severe pulmonary hypertension is present. Findings Left Ventricle Normal left ventricular cavity size. There is normal left ventricular wall thickness. The left ventricular systolic function is hyperdynamic. The visually estimated ejection fraction is >70%. There is no evidence of regional wall motion abnormalities. Diastolic function is indeterminate on the basis of available data. Right Ventricle Normal right ventricular cavity size and systolic function. Atria The left atrium is severely dilated. The right atrium is likely dilated. Aortic Valve There is a normal trileaflet aortic valve. There is mild calcification of the aortic valve. There is no aortic valve stenosis. There is no aortic valve regurgitation. Mitral Valve There is severe mitral annular calcification. There is moderate mitral valve regurgitation. There is severe mitral valve stenosis. The mean mitral valve gradient is 13.00 mmHg. The calculated mitral valve area by pressure half time is 1.42 cm2. Pulmonic Valve The pulmonic valve is likely normal. Tricuspid Valve Normal tricuspid valve structure. There is mild tricuspid valve regurgitation. The right ventricular systolic pressure is 89 mmHg. Normal right atrial pressure. Severe pulmonary hypertension is present. Great Vessels All visible segments of the aorta are normal in size. The visualized portions of the pulmonary artery and branches are normal. Venous The inferior vena cava is normal in size and collapses greater than 50% with inspiration. Pericardium/Pleural There is no evidence of pericardial effusion. Prior Study Comparison Changes noted compared to prior study dated: 04/13/2024. Severe pulmonary hypertension. Measurements 2D Linear Measurements IVSd: 0.99 0.6-0.9/0.6-1.0 cm LVIDd: 4.06 3.9-5.3/4.2-5.9 cm LVIDd Index: 2.15 2.4-3.2/2.2-3.1 cm/m2 LVIDs: 1.91 2.0-3.6 cm LVPWd: 0.96 0.7-1.1 cm LA Diam: 4.50 2.7-3.8/3.0-4.0 cm LAIDs Index: 2.38 1.5-2.3 cm/m2 LV Mass: 155.60 67-162/88-224 g LV Mass Index: 82.33 43-95/49-115 g/m2 LVOT Diam: 1.90 3.0+(-)1.3 cm 2D Systolic Function EF 4C: 74.30 >55% EF 2C: 67.50 >55% EF BiP: 72.80 >55% Mitral Valve MV VTI: 1.10 MV Pk Abel: 3.14 MV Mn Abel: 1.62 MV Pk Grad: 39.00 MV Mn Grad: 13.00 MV Pk E: 2.22 MV PK A: 1.59 MV Decel Time: 530.00 E/A: 1.40 E'Lateral: 3.70 E'Medial: 3.92 E/E' Med: 56.60 E/E' Lat: 60.00 PHT: 155.00 MVA PHT: 1.42 MVA Continuity: 0.69 Decel [place]: 4.19 MR Vol - PW Dopp: 38.60 MR VTI: 1.93 MR ERO: 20.00 MR Alias Abel: 0.39 MR RAD: 0.70 Aortic Valve AoV Pk Abel: 1.61 AoV Mn Abel: 1.12 AoV VTI: 0.39 AoV Pk Grad: 10.00 Aov Mn Grad: 6.00 KRISTOFER Cont.VTI: 1.94 LVOT LVOT Pk Abel: 1.06 LVOT Mn Abel: 0.75 LVOT VTI: 0.27 LVOT Pk Grad: 4.00 LVOT Mn Grad: 3.00 LVOT Diam: 1.90 LVOT Area: 2.84 Diastolic Function MV Pk E: 2.22 MV Pk A: 1.59 E/A: 1.40 E'Medial: 3.92 E/E' Med: 56.60 E' Laterial: 3.70 E/E' Lat: 60.00 Right Ventricle TAPSE (mm): 25.20 TVS' Abel: 11.10 Tricuspid Valve TR Pk Abel: 4.64 TR Pk Grad: 86.00 RA Press: 3.00 RVSP: 89.00 Great Vessels Aorta Sinus of Valsalva: 2.74 2.0-3.5 cm Ao Asc: 2.90 2.1-3.4 cm Updated in Other Vendor System with Status of Final Juan Carlos Hawkins MD electronically signed on 01/15/2025 8:09:20 PM with status of Final
--- OUTSIDE RECORDS SUMMARY | 2025-01-15 16:14 | XMS_ITS | Encounter Summary ---
Author Organization [facility] Address [address] [place] [address] Phone Care Team Providers Care Sewer Contractor Name Role Phone Juan Jose Ellington TREE EXPERT Primary Care Provider [phone] Encounter Details Date Type Department Care Team (Late st Contact Info) Description 03/19/2024 Documentation Only [facility] [place], [address] [place] [address] Tatyana Ritchie [address] [place] [address] Social History Tobacco Use Types Packs/Day Years Used Date Smoking Tobacco: Former Cigarettes 0 Q uit: 02/19/2015 Comments Unknown Sex and Gender Information Value Date Recorded Sex Assigned at Not on file Legal Sex Female 4:34 PM EST Gender Identity Not on file Sexual Orientation Not on file documented as of this encounter Functional Status * BP Answer Date of Assessment Author 120/68 03/21/2024 1:47 PM Cortes Alejandro MD * Pulse Answer Date of Assessment Author 56 03/21/2024 1:47 PM Cortes Alejandro MD * BP Answer Date of Assessment Author 120/68 03/21/2024 1:47 PM Cortes Alejandro MD documented as of this encounter Plan of Treatment Not on file documented as of this encounter Visit Diagnoses Not on filedocumented in this encounter Care Teams Sewer Contractor Relationship Specialty Start Date End Date Juan Jose Ellington NP [address] [facility] [place] [address] PCP - General 12/25/18 documented as of this encounter
--- OUTSIDE RECORDS SUMMARY | 2025-01-15 16:14 | XMS_ITS | Encounter Summary ---
Author Organization [facility] Address [address] [place] [address] Phone Care Team Providers Care Wallcovering Hanger Name Role Phone Juan Jose Ellington JOURNEYMAN MECHANIC Primary Care Provider [phone] Encounter Details Date Type Department Care Team (Late st Contact Info) Description 03/26/2024 Documentation Only [facility] [place], [address] [place] [address] Tatyana Ritchie [address] [place] [address] Social History Tobacco Use Types [...] on filedocumented in this encounter Care Teams Wallcovering Hanger Relationship Specialty Start Date End Date Juan Jose Ellington NP [facility] [place] [address] PCP - General 12/25/18 documented as of this encounter
--- OUTSIDE RECORDS SUMMARY | 2025-01-15 16:14 | XMS_ITS | Encounter Summary ---
Author Organization [facility] Address [address] [place] [address] Phone Care Team Providers Care Stock Clipper Name Role Phone Juan Jose Ellington ARMHOLE PRESSER Primary Care Provider [phone] Encounter Details Date Type Department Care Team (Late st Contact Info) Description 10/25/2023 Documentation Only [facility] [place], [address] [place] [address] Tatyana Ritchie [address] [place] [address] Social History Tobacco Use Types [...] on filedocumented in this encounter Care Teams Stock Clipper Relationship Specialty Start Date End Date Juan Jose Ellington NP [facility] [place] [address] PCP - General 12/25/18 documented as of this encounter
--- OUTSIDE RECORDS SUMMARY | 2025-01-15 16:14 | XMS_ITS | Encounter Summary ---
Author Organization [facility] Address [address] [place] [address] Phone Care Team Providers Care Manager Math Name Role Phone Juan Jose Ellington SCIENTIFIC INFORMATICS LEADER Primary Care Provider [phone] Encounter Details Date Type Department Care Team (Late st Contact Info) Description 10/25/2023 Documentation Only [facility] [place], [address] [place] [address] Tatyana Ritchie [address] [place] [address] Social History Tobacco Use Types [...] filedocumented in this encounter Care Teams Manager Math Relationship Specialty Start Date End Date Juan Jose Ellington NP [facility] [place] [address] PCP - General 12/25/18 documented as of this encounter
--- OUTSIDE RECORDS SUMMARY | 2025-01-15 16:14 | XMS_ITS | Encounter Summary ---
Author Organization [facility] Address [address] [place] [address] Phone Care Team Providers Care Broke Worker Name Role Phone Juan Jose Ellington RESOURCES REPRESENTATIVE Primary Care Provider [phone] Encounter Details Date Type Department Care Team (Late st Contact Info) Description 09/18/2024 Documentation Only [facility] [place], [address] [place] [address] Tatyana Ritchie [address] [place] [address] Social History Tobacco Use Types [...] on filedocumented in this encounter Care Teams Broke Worker Relationship Specialty Start Date End Date Juan Jose Ellington NP [facility] [place] [address] PCP - General 12/25/18 documented as of this encounter
--- OUTSIDE RECORDS SUMMARY | 2025-01-15 16:14 | XMS_ITS | Clinical Summary ---
Author Organization [facility] [place], Address [address] [place] [address] [place] [address] Phone Care Team Providers Care Garnett Machine Operator Helper Name Role Phone Juan Jose Ellington NP Primary Care Provider [phone] Allergies No known active allergies Medications albuterol [...] [place] Care Teams Garnett Machine Operator Helper Relationship Specialty Start Date End Date Juan Jose Ellington NP [address] [facility] [place] [id number] PCP - General 12/25/18
--- OUTSIDE RECORDS SUMMARY | 2025-01-15 16:14 | XMS_ITS | Encounter Summary ---
Author Organization [facility] Address [address] [place] [address] Phone Care Team Providers Care Nurses Supervisor Name Role Phone Juan Jose Ellington CONSERVATION OF RESOURCES COMMISSIONER Primary Care Provider [phone] Encounter Details Date Type Department Care Team (Late st Contact Info) Description 03/19/2024 Documentation Only [facility] [place], [address] [place] [address] Tatyana Ritchie [address] [place] [address] Social History Tobacco Use Types [...] on filedocumented in this encounter Care Teams Nurses Supervisor Relationship Specialty Start Date End Date Juan Jose Ellington NP [address] [facility] [place] [address] PCP - General 12/25/18 documented as of this encounter
--- OUTSIDE RECORDS SUMMARY | 2025-01-15 16:15 | XMS_ITS | Encounter Summary ---
Author Organization [facility] Address [address] [place] [address] Phone Care Team Providers Care Vice President Sales And Marketing Name Role Phone Juan Jose Ellington PRODUCT SAFETY HEAD Primary Care Provider [phone] Encounter Details Date Type Department Care Team (Late st Contact Info) Description 10/12/2023 Documentation Only [facility] [place], [address] [place] [address] Tatyana Ritchie [address] [place] [address] Social History Tobacco Use Types [...] in this encounter Care Teams Vice President Sales And Marketing Relationship Specialty Start Date End Date Juan Jose Ellington NP [facility] [place] [address] PCP - General 12/25/18 documented as of this encounter
--- OUTSIDE RECORDS SUMMARY | 2025-01-15 16:15 | XMS_ITS | Clinical Summary ---
Author Organization [address] [facility] Address [address] [place] [address] Phone Care Team Providers Care Hitting Coach Name Role Phone Juan Jose Ellington NP Primary Care Provider [phone] Allergies Active Allergy Reactions Criticality Noted Date [...] Problem Noted Date Diagnosed Date Bipolar disorder ([facility] V24, [facility] V28) 09/21 COPD (chronic obstructive pu lmonary disease) ([facility] V24, [facility] V28) 10/11/2018 Hyperlipidemia 10/11/2018 Hypertension 10/11/2018 Pulmonary nodule 10/11/2018 Overview (04/12/2024): RUL-05/30/18 S/p VATS & wedge resection-no malignancy Sarcoidosis of lung ([facility] V24) 10/11/2018 Encounters Date Type Department Care Team Description 12/11/2024 9:00 AM EDT Office Visit Pulmonology - [address] [address] Sarah Breaux MD Sarcoidosis of lung ([facility] V24) (Primary Dx); Chronic obstructive pulmonary disease, unspecified COPD type ([facility] V24, [facility] V28); Pulmonary nodule 12/11/2024 Telephone Pulmonology - [place] [address] [facility] [address] [place] [address] Dhaval Yang MA from Last [...] Comments COPD (chronic obstructive pu lmonary disease) ([facility] V24, [facility] V28) 10/11/2018 DX:COPD (chronic o bstructive pulmonary disease) (HCC) Sarcoidosis of lung ([facility] V24) 10/11/2018 DX:Sarcoidosis of lung (HCC) Pulmonary nodule 10/11/2018 DX:Pulmonary no dule; COMMENT: RUL-05/30/18 S/p VATS & wedge resection-no malignancy Bipolar disorder ([facility] V2 4, [facility] V28) 10/11/2018 DX:Bipolar disorder (HCC) Hypertension 10/11/2018 DX:Hypertension Hyperlipidemia 10/11/2018 DX:Hyperlipidemi a SHARON (acute kidney injury) ([facility] [place] V24) DX:SHARON (acute kidney injury) (HCC) Atrial fibrillation (CMS/[facility] V24, [facility] V28) DX:Atrial fibrillation (HCC) Renal disease DX:Renal disease Leukocytosis DX:Leukocytosis [place] nephropathy DX:[place] n ephropathy Mediastinal lymphadenopathy DX:M ediastinal lymphadenopathy Necrotizing granulomatous inflammation of lung (CMS/[facility] V24, [facility] V28) DX:Necrotizing granulomatous inflammation of lung [...] Info) Description 03/13/2025 11:00 AM EST Appointment [facility] CT Scan [address] [place] [phone] 04/14/2025 1:15 PM EST Ancillary Procedure Pulmonology [facility] [address] [phone] 04/14/2025 2:15 PM EST Office Visit Pulmonology [facility] [address] [phone] Sarah Breaux MD [address] [place] [phone] Health Maintenance Due Date Last Done Comments [...] EDT Narrative 06/13/2023 3:45 PM EDT [facility] Diagnostic Imaging Department [address] [place] [address] Patient: NIKKI HURTADO /Age/Sex: 1945 - 77 - F Unit#: [id number] Location/Status: SPDICATLS/REG CLI Mnemonic/Ordering Site: [facility] Ordering Physician: JOHANNA SU MD CT Lung [...] by: EDGARD TORRES MD Dic Date/Time: 06/13/23 1518 Sign date/Time: 06/13/23 8364 Procedure Note Edgard Torres MD - 10/09/2023 [facility] Diagnostic Imaging Department [address] [place] [address] Patient: NIKKI HURTADO Jory /Age/Sex: 1945 - 77 - F Unit#: [id number] Location/Status: [facility] Mnemonic/Ordering Site: [facility] Ordering Physician: JOHANNA SU MD CT Lung [...] Insurance MEDICARE [place]ICAID [place] Care Teams Hitting Coach Relationship Specialty Start Date End Date Juan Jose Ellington NP [address] [place], [place] PCP - General 06/26/18
--- OUTSIDE RECORDS SUMMARY | 2025-01-15 16:15 | XMS_ITS | Encounter Summary ---
Author Organization [facility] Address [address] [place] [address] Phone Care Team Providers Care Venetian Blind Worker Name Role Phone Juan Jose Ellington TOW TRUCK DRIVER Primary Care Provider [phone] Encounter Details Date Type Department Care Team (Late st Contact Info) Description 10/25/2023 Documentation Only [facility] [place], [address] [place] [address] Taytana Ritchie [address] [place] [address] Social History Tobacco Use Types [...] on filedocumented in this encounter Care Teams Venetian Blind Worker Relationship Specialty Start Date End Date Juan Jose Ellington NP [facility] [place] [place] [address] PCP - General 12/25/18 documented as of this encounter
== END ==
LOC: HO.CARD 13:07
PROVIDERS: PCP Nurse Practitioner Family; Visit Provider Internal Medicine Cardiovascular Disease
DX: I34.81 Nonrheumatic mitral (valve) annulus calcification (principal)
CPT/HCPCS: 93306

== ENCOUNTER → 2025-01-15 13:10 | Outpatient (BNV) | payer MEDICARE, MEDICAID, SELFPAY | PROVIDERS: PCP Nurse Practitioner Family; Visit Provider Internal Medicine Cardiovascular Disease | DX: I51.89 Other ill-defined heart diseases (principal); I51.7 Cardiomegaly; I34.81 Nonrheumatic mitral (valve) annulus calcification; I34.0 Nonrheumatic mitral (valve) insufficiency; I34.2 Nonrheumatic mitral (valve) stenosis; I27.20 Pulmonary hypertension, unspecified | CPT/HCPCS: 93306 ==

== ENCOUNTER 2025-01-20 11:21 | Outpatient (AMB) | payer MEDICARE, MEDICAID, SELFPAY ==
[2025-01-20 11:23] VITALS: BP 122/70; PULSE 65; O2SAT 95; BMI 38.9
--- NOTE | 2025-01-20 11:23 | A.OFFPC_ITS ---
Vital Signs 01/20/25 11:23 Height 5 ft 1 in Weight 206 lb BMI 38.9 BP 122/70 Blood Pressure Location Lt brachial Position Sitting Pulse 65 Pulse Source Pulse Oximeter Pulse Oximetry (%) 95 Intake Visit Reasons: 6m follow up Weights And Measures Inspector Required: No Accompanied by: Self / Same As Patient Allergies Sulfa (Sulfonamide Antibiotics) (SULFA (SULFONAMIDE ANTIBIOTICS)) Allergy (Severe, Verified 01/20/25 11:24) RASH, Anaphylaxis Tobacco use date assessed: 04/29/24 Fall risk assessment: No Falls in past year Last assessed Fall Risk: 01/20/25 Dental Screening Dental Screen Date: 04/29/24 HPI 6m follow up HPI Details Chief Complaint The patient presents for a generalized followup. History of Present Illness The patient is a 79 year old individual presenting for a generalized followup. The patient sees multiple specialists, including a neurologist, a lead etl developer, a college scouting coordinator, and a psychiatrist. The patient has a chronic cough, which is suspected to be related to congestive heart failure, and is on portable oxygen. The patient denies any increase in shortness of breath. The patient has noted some weight gain since the last visit, which may be medication-related. The patient has a baseline tremor and has been put back on carbidopa-levodopa by the neurologist. The patient has +1 pitting edema in the bilateral lower extremities, which improves with leg elevation or compression stockings. Regarding renal function, a recent visit with a college scouting coordinator confirmed kidney function is at baseline with a creatinine of 2.01. The patient also has a psychiatric history and continues to see a psychiatrist. Social History Health Maintenance Review of Systems - Respiratory: Reports a chronic cough. Denies any increased shortness of breath. - Constitutional: Reports weight gain. - Neurological: Reports a tremor which i s at baseline. Physical Exam General: Cooperative, healthy appearing, comfortable, no acute distress and well developed Orientation: Patient oriented x3 Limitations: No limitations Head: Normal to inspection Ears: Hearing grossly normal bilaterally Nose: Normal external nose present Face and sinus: Normal facial exam Eyes: Appearance normal, both eyes and all related structures Neck: Normal visual inspection and Yes full ROM Respiratory: Normal respiratory effort and able to speak in complete sentences. Lungs were actually fairly clear by lab Cardiovascular: Regular rate and rhythm. Normal S1 and S2 GI: Normal to inspection. Soft to palpation and nontender Skin: No rashes or lesions noted Neuro: Patient oriented x3. She does have a tremor Extremities: Plus 1 pitting edema to lower extremities. Results - Labs: Creatinine is 2.01. Plan 1. Congestive Heart Failure The patient has a chronic cough suspected to be related to congestive heart failure and is on portable O2. The patient will continue to be managed by the lead etl developer. 2. Tremor The patient has a baseline tremor and is being managed by a neurologist with carbidopa-levodopa. 3. Lower Extremity Edema The patient has +1 pitting edema in the bilateral lower extremities, which is managed with leg elevation and compression stockings. 4. Chronic Kidney Disease The patient's kidney function is at baseline with a creatinine of 2.01 and the patient will continue followup with the college scouting coordinator. 5. Psychiatric Disorder The patient has a psychiatric history and will continue to see a psychiatrist for management. Discussion Notes Patient Instructions - To help with the swelling in your legs , continue to keep your legs up and wear your compression stockings. - Continue taking your carbidopa-levodop a for the tremor as prescribed by your neurologist. - Continue your follow-up appointments w ith your heart doctor (lead etl developer), nerve doctor (neurologist), kidney doctor (college scouting coordinator), and psychiatrist. [facility] Medical History Paroxysmal atrial fibrillation Emphysema of lung Tardive dyskinesia Coarse tremors Hypersomnia Snoring SHARON (acute kidney injury) Mediastinal lymphadenopathy Atrial fibrillation Dyslipidemia Kidney disease Leukocytosis Necrotizing granulomatous inflammation of lung Bipolar 1 disorder Vitamin D deficiency COPD (chronic obstructive pulmonary disease) Sarcoidosis HTN (hypertension) [place] nephropathy Surgical History History of cardioversion History of bronchoscopy Family History Child No Financial Resp No problems noted. 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 Current occupational exposures/hazards: No Cognitive needs: No Hearing needs: No Vision needs: Yes Questionnaire Thrive Questionnaire Date Thrive assessed: 04/29/24 I am a: Parent/Caregiver What is your living situation today?: I have a steady place to live Within the past 12 months, did the food you bought not last and you didn't have the money to get more?: Never true Within the past 12 months, did you worry whether your food would run out before you got money to buy more?: Never true Do you have trouble paying for medicines?: No Do you have trouble getting transportation to medical appointments?: No Do you have trouble paying your heating and electricity bill?: No Do you have trouble taking care of your child, family member or friend?: I choose not to answer this question Do you have trouble with day-to-day activities such as bathing, preparing meals, shopping, managing finances, etc.?: Yes Are you currently unemployed and looking for a job?: Yes Are you interested in more education?: No Please select the resources that you would like help with: None Currently or been in a relationship where the following occur: No concerns reported THRIVE Score: 0 CANDY-7 AMB Questionnaire CANDY-7 Date CANDY - 7 assessed: 04/29/24 Source: Developed by Drs. Torrey Prater, Rylee De Leon, Winston Gutierrez and colleagues, with an educational eli from [employer]. Physical exam (Primary Care) Vital Signs: Last Vital Signs Pulse 65 01/20/25 11:23 BP 122/70 01/20/25 11:23 Pulse Ox 95 01/20/25 11:23 BMI result Body Mass Index 38.9 Tobacco/Smoking Status: Tobacco use Status Tobacco use date assessed 04/29/24 01/20/25 11:24 Patient Tobacco Use Status Former Tobacco user 01/20/25 11:24 Tobacco use type Cigarette 01/20/25 11:24 e-Cigarette/Vaping Use Never Used 01/20/25 11:24 Thrive Assessment: Date of Thrive Assessment Date Thrive assessed 04/29/24 01/20/25 11:24 Currently or been in a relationship where the following occur: No concerns reported Coding Level of Care Code Est Pt Level 3 (13619) Diagnoses Primary hypertension I10 Hypertension type: primary hypertension Tremors of nervous system R25.1 Gait instability R26.81 Congestive heart failure I50.9 Assessment & Plan Assessment & Plan (1) HTN (hypertension): Code(s): I10 - Essential (primary) hypertension Category: Medical Qualifiers: Hypertension type: primary hypertension Qualified Code(s): I10 - Essential (primary) hypertension (2) Tremors of nervous system: Code(s): R25.1 - Tremor, unspecified Category: Medical (3) Gait instability: Code(s): R26.81 - Unsteadiness on feet Category: Medical (4) Congestive heart failure: Code(s): I50.9 - Heart failure, unspecified Category: Medical Plan . Orders: Orders Pneumococcal 20 Immunization Today Z23 - Encounter for immunization Medications: New pneumoc 20-rory conj-dip cr(PF) 0.5 mL IM ONCE 0.5 mL 0RF Z23 - Encounter for immunization
--- OUTSIDE RECORDS SUMMARY | 2025-01-20 14:54 | XMS_ITS | Encounter Summary ---
Author Organization [facility] Address [address] [place] [address] Care Team Providers Care Music Department Chair Name Role Phone Juan Jose Ellington NP Primary Care Provider Unavail able Kenneth Garza PA-C Unavailable Johanna Son MD Unavailable Encounter Details Date Type Department Care Team Description 03/17/2022 Orders Only [facility] Lung Screening Program [place] [address] [facility] [address] [place] [phone] Johanna Son MD [address] [facility] [place] [address] [place] [phone] History of tobacco use, presenting hazards to [...] health documented in this encounter Care Teams Music Department Chair Relationship Specialty Start Date End Date Juan Jose Ellington NP PCP - General Family Practice 06/26/18 Kenneth Garza PA-C [address] [phone] Specialist Thoracic Surgery 06/01/22 Johanna Son MD [address] [phone] Lung Cancer Political Scientist 06/01/22 documented as of this encounter
--- OUTSIDE RECORDS SUMMARY | 2025-01-20 14:54 | XMS_ITS | Encounter Summary ---
Author Organization [facility] Address [address] [place] [address] Phone Care Team Providers Care Director Engineering Name Role Phone Juan Jose Ellington NETWORK INTERNSHIP Primary Care Provider [phone] Encounter Details Date Type Department Care Team (Late st Contact Info) Description 03/26/2024 Documentation Only [facility] [place], [address] [place] [address] Tatyana Ritchie [address] [place] [address] Social History Tobacco Use Types [...] filedocumented in this encounter Care Teams Director Engineering Relationship Specialty Start Date End Date Juan Jose Ellington NP [facility] [place] [address] PCP - General 12/25/18 documented as of this encounter
--- OUTSIDE RECORDS SUMMARY | 2025-01-20 14:54 | XMS_ITS | Encounter Summary ---
Author Organization [facility] Address [address] [place] [address] Phone Care Team Providers Care Marketing And Public Relations Manager Name Role Phone Juan Jose Ellington PREMIUM NOTE INTEREST CALCULATOR CLERK Primary Care Provider [phone] Encounter Details Date Type Department Care Team (Late st Contact Info) Description 09/18/2024 Documentation Only [facility] [place], [address] [place] [address] Tatyana Ritchie [address] [place] [address] Social History Tobacco Use Types [...] on filedocumented in this encounter Care Teams Marketing And Public Relations Manager Relationship Specialty Start Date End Date Juan Jose Ellington NP [facility] [place] [address] PCP - General 12/25/18 documented as of this encounter
--- OUTSIDE RECORDS SUMMARY | 2025-01-20 14:54 | XMS_ITS | Encounter Summary ---
Author Organization [facility] Address [address] [place] [address] Phone Care Team Providers Care Paper Stacker Name Role Phone Juan Jose Ellington TABLE SAW OPERATOR Primary Care Provider [phone] Encounter Details Date Type Department Care Team (Late st Contact Info) Description 10/25/2023 Documentation Only [facility] [place], [address] [place] [address] Tatyana Ritchie [address] [place] [address] Social History Tobacco Use Types [...] on filedocumented in this encounter Care Teams Paper Stacker Relationship Specialty Start Date End Date Juan Jose Ellington NP [facility] [place] [address] PCP - General 12/25/18 documented as of this encounter
--- OUTSIDE RECORDS SUMMARY | 2025-01-20 14:54 | XMS_ITS | Clinical Summary ---
Author Organization [facility] [place], Address [address] [place] [address] [place] [address] Phone Care Team Providers Care Gaming Cage Worker Name Role Phone Juan Jose Ellington NP Primary Care Provider [phone] Allergies No known active allergies Medications albuterol [...] [place] Medicaid [place] Care Teams Gaming Cage Worker Relationship Specialty Start Date End Date Juan Jose Ellington NP [address] [facility] [place] [address] PCP - General 12/25/18
--- OUTSIDE RECORDS SUMMARY | 2025-01-20 14:54 | XMS_ITS | Encounter Summary ---
Author Organization [facility] Address [address] [place] [address] Care Team Providers Care Pointing Machine Operator Name Role Phone Juan Jose Ellington NP Primary Care Provider Unavail able Kenneth Garza PA-C Unavailable [phone] Johanna Son MD Unavailable Encounter Details Date Type Department Care Team Description 05/30/2018 Hospital Medical Records [address] [place] [address] Johanna Son MD [address] [phone] Social History Tobacco Use Types Packs/Day Years [...] on filedocumented in this encounter Care Teams Pointing Machine Operator Relationship Specialty Start Date End Date Juan Jose Ellington NP PCP - General Family Practice 06/26/18 Kenneth Garza PA-C [address] [phone] Specialist Thoracic Surgery 06/01/22 Johanna Son MD [address] [place] [phone] Lung Cancer Gm Mobile 06/01/22 documented as of this encounter
--- OUTSIDE RECORDS SUMMARY | 2025-01-20 14:54 | XMS_ITS | Encounter Summary ---
Author Organization [facility] Address [address] [place] [address] Phone Care Team Providers Care Rpg Programmer Analyst Name Role Phone Juan Jose Ellington HYDROELECTRIC PLANT ELECTRICIAN Primary Care Provider [phone] Encounter Details Date Type Department Care Team (Late st Contact Info) Description 03/19/2024 Documentation Only [facility] [place], [address] [place] [address] Tatyana Ritchie [address] [place] [address] Social History Tobacco Use Types [...] Assessment Author 120/68 03/21/2024 1:47 PM Cortes Aleajndro MD * Pulse Answer Date of Assessment Author 56 03/21/2024 1:47 PM Cortes Alejandro MD * BP Answer Date of Assessment Author 120/68 03/21/2024 1:47 PM Cortes Alejandro MD documented as of this encounter Plan of Treatment Not on file documented as of this encounter Visit Diagnoses Not on filedocumented in this encounter Care Teams Rpg Programmer Analyst Relationship Specialty Start Date End Date Juan Jose Ellington NP [address] [facility] [place] [address] PCP - General 12/25/18 documented as of this encounter
--- OUTSIDE RECORDS SUMMARY | 2025-01-20 14:54 | XMS_ITS | Encounter Summary ---
Author Organization [facility] Address [address] [place] [address] Care Team Providers Care Road Marker Name Role Phone Juan Jose Ellington NP Primary Care Provider Unavail able Kenneth Garza PA-C Unavailable [phone] Johanna Son MD Unavailable Encounter Details Date Type Department Care Team Description 04/27/2018 Hospital Medical Records [address] [place] [address] Johanna Son MD [address] [phone] Social History Tobacco Use Types Packs/Day Years [...] on filedocumented in this encounter Care Teams Road Marker Relationship Specialty Start Date End Date Juan Jose Ellington NP PCP - General Family Practice 06/26/18 Kenneth Garza PA-C [address] [phone] Specialist Thoracic Surgery 06/01/22 Johanna Son MD [address] [place] [phone] Lung Cancer Plaster Patternmaker 06/01/22 documented as of this encounter
--- OUTSIDE RECORDS SUMMARY | 2025-01-20 14:54 | XMS_ITS | Encounter Summary ---
Author Organization [facility] Address [address] [place] [address] Phone Care Team Providers Care Double End Trimmer Name Role Phone Juan Jose Ellington COMMERCIAL INTERN Primary Care Provider [phone] Encounter Details Date Type Department Care Team (Late st Contact Info) Description 10/25/2023 Documentation Only [facility] [place], [address] [place] [address] Tatyana Ritchie [address] [place] [address] Social History Tobacco Use Types [...] on filedocumented in this encounter Care Teams Double End Trimmer Relationship Specialty Start Date End Date Juan Jose Ellington NP [facility] [place] [address] PCP - General 12/25/18 documented as of this encounter
--- OUTSIDE RECORDS SUMMARY | 2025-01-20 14:54 | XMS_ITS | Encounter Summary ---
Author Organization [facility] Address [address] [place] [address] Care Team Providers Care Shoe Turner Name Role Phone Juan Jose Ellington NP Primary Care Provider Unavail able Kenneth Garza PA-C Unavailable [phone] Johanna Son MD Unavailable Reason for Visit * Reason Onset Date Comments Provider Call Back 04/29/2019 Encounter Details Date Type Department Care Team Description 04/29/2019 Telephone Pulmonology - [place] 175 [facility] [address] [place] [phone] Sarah Breaux MD 175 [place] [address] Provider Call Back Social History [...] call back: Patient sister call and said [facility] said the last time she has a [...] filedocumented in this encounter Care Teams Shoe Turner Relationship Specialty Start Date End Date Juan Jose Ellington NP PCP - General Family Practice 06/26/18 Kenneth Garza PA-C [address] [address] Specialist Thoracic Surgery 06/01/22 Johanna Son MD [address] [address] Lung Cancer Machine Feeder Raw Stock 06/01/22 documented as of this encounter
--- OUTSIDE RECORDS SUMMARY | 2025-01-20 14:54 | XMS_ITS | Encounter Summary ---
Author Organization [facility] Address [address] [place] [address] Phone Care Team Providers Care Land Use Planner Name Role Phone Juan Jose Ellington NET WEB APPLICATION DEVELOPER Primary Care Provider [phone] Encounter Details Date Type Department Care Team (Late st Contact Info) Description 10/25/2023 Documentation Only [facility] [place], [address] [place] [address] Tatyana Ritchie [address] [place] [address] Social History Tobacco Use [...] on filedocumented in this encounter Care Teams Land Use Planner Relationship Specialty Start Date End Date Juan Jose Ellington NP [employer] [facility] [place] [address] PCP - General 12/25/18 documented as of this encounter
--- OUTSIDE RECORDS SUMMARY | 2025-01-20 14:54 | XMS_ITS | Encounter Summary ---
Author Organization [facility] Address [address] [place] [address] Care Team Providers Care Twister Tender Name Role Phone Juan Jose Ellington NP Primary Care Provider Unavail able Kenneth Garza PA-C Unavailable Johanna Son MD Unavailable Encounter Details Date Type Department Care Team Description 07/23/2019 Refill Pulmonology - [place] 175 [facility] [address] [place] [phone] Sarah Breaux MD 175 [place] [address] Social History Tobacco Use Types Packs/Day Years [...] (HCC) documented in this encounter Care Teams Twister Tender Relationship Specialty Start Date End Date Juan Jose Ellington NP PCP - General Family Practice 06/26/18 Kenneth Garza PA-C 299 [facility] [address] [place] [phone] Specialist Thoracic Surgery 06/01/22 Johanna Son MD [address] [phone] Lung Cancer Geodetic Surveyor 06/01/22 documented as of this encounter
--- OUTSIDE RECORDS SUMMARY | 2025-01-20 14:54 | XMS_ITS | Encounter Summary ---
Author Organization [facility] Address [address] [place] [address] Phone Care Team Providers Care Warpman Name Role Phone Juan Jose Ellington BIODIESEL PLANT OPERATIONS ENGINEER Primary Care Provider [phone] Encounter Details Date Type Department Care Team (Late st Contact Info) Description 03/19/2024 Documentation Only [facility], [address] [place] [address] Tatyana Ritchie [address] [place] [address] Social History Tobacco Use Types [...] on filedocumented in this encounter Care Teams Warpman Relationship Specialty Start Date End Date Juan Jose Ellington NP [address] [facility] [place] [address] PCP - General 12/25/18 documented as of this encounter
--- OUTSIDE RECORDS SUMMARY | 2025-01-20 14:54 | XMS_ITS | Encounter Summary ---
Author Organization [facility] Address [address] [place] [address] Care Team Providers Care Help Desk Consultant Name Role Phone Juan Jose Ellington NP Primary Care Provider Unavail able Kenneth Garza PA-C Unavailable Johanna Son MD Unavailable Encounter Details Date Type Department Care Team Description 02/25/2019 Release of Information Medical Records [address] [place] [id number] Abstract, Provider Social History Tobacco Use Types [...] in this encounter Care Teams Help Desk Consultant Relationship Specialty Start Date End Date Juan Jose Ellington NP PCP - General Family Practice 06/26/18 Kenneth Garza PA-C [address] [phone] Specialist Thoracic Surgery 06/01/22 Johanna Son MD [address] [phone] Lung Cancer Floor Scrubber 06/01/22 documented as of this encounter
--- OUTSIDE RECORDS SUMMARY | 2025-01-20 14:55 | XMS_ITS | Encounter Summary ---
Author Organization [facility] Address [address] [place] [address] Care Team Providers Care Benzene Washer Operator Name Role Phone Juan Jose Ellington NP Primary Care Provider Unavail able Kenneth Garza PA-C Unavailable [phone] Johanna Son MD Unavailable Encounter Details Date Type Department Care Team Description 06/01/2022 [facility] Lung Screening Program [place] 299 [facility] [address] [place] [phone] Johanna Son MD 299 [facility] [place] [address] [place] [address] [phone] Social History Tobacco Use Types Packs/Day Years [...] on filedocumented in this encounter Care Teams Benzene Washer Operator Relationship Specialty Start Date End Date Juan Jose Ellington NP PCP - General Family Practice 06/26/18 Kenneth Garza PA-C [address] [phone] Specialist Thoracic Surgery 06/01/22 Johanna Son MD [address] [phone] Lung Cancer Glass Deposition Tender 06/01/22 documented as of this encounter
--- OUTSIDE RECORDS SUMMARY | 2025-01-20 14:55 | XMS_ITS | Clinical Summary ---
Author Organization 175 [facility] Address [address] [place] [address] Phone Care Team Providers Care Tooling Engineering Tech Name Role Phone Juan Jose Ellington NP Primary Care Provider [phone] Allergies Active Allergy Reactions Criticality Noted Date [...] Problem Noted Date Diagnosed Date Bipolar disorder ([facility] V24, [facility] V28) 09/21 COPD (chronic obstructive pu lmonary disease) ([facility] V24, [facility] V28) 10/11/2018 Hyperlipidemia 10/11/2018 Hypertension 10/11/2018 Pulmonary nodule 10/11/2018 Overview (04/12/2024): RUL-05/30/18 S/p VATS & wedge resection-no malignancy Sarcoidosis of lung ([facility] V24) 10/11/2018 Encounters Date Type Department Care Team Description 12/11/2024 9:00 AM EDT Office Visit Pulmonology - [address] [phone] Sarah Breaux MD Sarcoidosis of lung ([facility] V24) (Primary Dx); Chronic obstructive pulmonary disease, unspecified COPD type ([facility] V24, [facility] V28); Pulmonary nodule 12/11/2024 Telephone Pulmonology - [place] 175 [facility] [address] [place] [address] Dhaval Yang MA from Last 3 Months Immunizations Immunization Administration Dates Next Due Moderna SARS-CoV-2 COVID-19, mRNA, LNP-S, preservative free 05/30/2020,05/02/2020 Surgical History Surgery Date Site/Laterality Comments OTHER SURGICAL HISTORY 04/27/2018 Right PROCEDURE: MS BRNCHSC INCL FLUOR GDNCE DX W/CELL WASHG SPX; COMMENT: negative malignancy TUBAL LIGATION PROCEDURE: HISTORICAL TUBAL LIGATION OTHER SURGICAL HISTORY 05/30/2018 Right PROCEDURE: MS BRONCHOSCOPY W/CPTR-ASST IMAGE-GUIDED NAVIGATION; COMMENT: da Arthur/VATS RUL wedge resection w/extensive pneumolysis OTHER SURGICAL HISTORY PROCEDURE: MS CARDIOVERSION ELECTIVE ARRHYTHMIA EXTERNAL Medical History Medical History Date Comments COPD (chronic obstructive pu lmonary disease) ([facility] V24, [facility] V28) 10/11/2018 DX:COPD (chronic o bstructive pulmonary disease) (HCC) Sarcoidosis of lung ([facility] V24) 10/11/2018 DX:Sarcoidosis of lung (HCC) Pulmonary nodule 10/11/2018 DX:Pulmonary no dule; COMMENT: RUL-05/30/18 S/p VATS & wedge resection-no malignancy Bipolar disorder ([facility] V2 4, [facility] V28) 10/11/2018 DX:Bipolar disorder (HCC) Hypertension 10/11/2018 DX:Hypertension Hyperlipidemia 10/11/2018 DX:Hyperlipidemi a SHARON (acute kidney injury) ([facility] [place]/[facility] V24) DX:SHARON (acute kidney injury) (HCC) Atrial fibrillation (CMS/[facility] V24, [facility] V28) DX:Atrial fibrillation (HCC) Renal disease DX:Renal disease Leukocytosis DX:Leukocytosis Mazie nephropathy DX:Mazie n ephropathy Mediastinal lymphadenopathy DX:M ediastinal lymphadenopathy Necrotizing granulomatous inflammation of lung (CMS/[facility] V24, [facility] V28) DX:Necrotizing granulomatous inflammation of lung [...] Info) Description 03/13/2025 11:00 AM EST Appointment [facility] CT Scan [address] [place] [phone] 04/14/2025 1:15 PM EST Ancillary Procedure Pulmonology [facility] [address] [phone] 04/14/2025 2:15 PM EST Office Visit Pulmonology [facility] [address] [phone] Sarah Breaux MD [address] [place] [phone] Health Maintenance Due Date Last Done Comments [...] [facility] Diagnostic Imaging Department [address] [place] [address] Patient: NIKKI HURTADO /Age/Sex: 1945 - 77 - F Unit#: [id number] Location/Status: SPDICATLS/REG CLI Mnemonic/Ordering Site: [facility] Ordering Physician: JOHANNA SU MD CT Lung [...] by: EDGARD TORRES MD Dic Date/Time: 06/13/23 1511 Sign date/Time: 06/13/23 2382 Procedure Note Edgard Torres MD - 10/09/2023 [facility] Diagnostic Imaging Department [address] [place] [address] Patient: NIKKI HURTADO Jory /Age/Sex: 1945 - 77 - F Unit#: [id number] Location/Status: [facility] Mnemonic/Ordering Site: [facility] Ordering Physician: JOHANNA SU MD CT Lung [...] Insurance MEDICARE [place]ICAID [place] Care Teams Tooling Engineering Tech Relationship Specialty Start Date End Date Juan Jose Ellington NP [address] [place], [place] PCP - General 06/26/18
--- OUTSIDE RECORDS SUMMARY | 2025-01-20 14:55 | XMS_ITS | Encounter Summary ---
Author Organization [facility] Address [address] [place] [address] Phone Care Team Providers Care Business Development Coordinator Name Role Phone Juan Jose Ellington THREAD SINGER Primary Care Provider [phone] Encounter Details Date Type Department Care Team (Late st Contact Info) Description 10/12/2023 Documentation Only [facility] [place], [address] [place] [address] Tatyana Ritchie [address] [place] [address] Social History Tobacco Use [...] filedocumented in this encounter Care Teams Business Development Coordinator Relationship Specialty Start Date End Date Juan Jose Ellington NP [facility] [place] [place] [address] PCP - General 12/25/18 documented as of this encounter
--- OUTSIDE RECORDS SUMMARY | 2025-01-20 14:55 | XMS_ITS | Encounter Summary ---
Author Organization [facility] Address [address] [place] [address] Care Team Providers Care Associate Engineer Name Role Phone Juan Jose Ellington NP Primary Care Provider Unavail able Kenneth Garza PA-C Unavailable [phone] Johanna Son MD Unavailable Encounter Details Date Type Department Care Team Description 06/14/2023 Orders Only [facility] Lung Screening Program [place] 299 [facility] [address] [place] [phone] Johanna Son MD 299 [facility] [place] [address] [place] [phone] History of tobacco abuse Social History Tobacco [...] health documented in this encounter Care Teams Associate Engineer Relationship Specialty Start Date End Date Juan Jose Ellington NP PCP - General Family Practice 06/26/18 Kenneth Garza PA-C [address] [phone] Specialist Thoracic Surgery 06/01/22 Johanna Son MD [address] [phone] Lung Cancer Bag Sealer 06/01/22 documented as of this encounter
--- OUTSIDE RECORDS SUMMARY | 2025-01-20 14:55 | XMS_ITS | Encounter Summary ---
Author Organization [facility] Address [address] [place] [address] Care Team Providers Care Shredded Filler Cutter Operator Name Role Phone Juan Jose Ellington NP Primary Care Provider Unavail able Kenneth Garza PA-C Unavailable Johanna Son MD Unavailable Encounter Details Date Type Department Care Team Description 12/27/2022 Telephone Pulmonology - [place] 175 [facility] [address] [place] [address] Sarah Breaux MD [address] [place] [address] Social History Tobacco Use Types [...] on filedocumented in this encounter Care Teams Shredded Filler Cutter Operator Relationship Specialty Start Date End Date Juan Jose Ellington NP PCP - General Family Practice 06/26/18 Kenneth Garza PA-C [address] [place] [phone] Specialist Thoracic Surgery 06/01/22 Johanna Son MD [address] [phone] Lung Cancer Toggler 06/01/22 documented as of this encounter
== END 2025-01-20 12:19 | disposition home or self-care (01) ==
LOC: HO.HMCC 11:22
PROVIDERS: PCP Nurse Practitioner Family; Visit Provider Nurse Practitioner Family
DX: I10 Essential (primary) hypertension (principal); R25.1 Tremor, unspecified; R26.81 Unsteadiness on feet; I50.9 Heart failure, unspecified; Z23 Encounter for immunization

== ENCOUNTER → 2025-01-20 11:21 | Outpatient (BNVA) | payer MEDICARE, MEDICAID, SELFPAY | PROVIDERS: PCP Nurse Practitioner Family; Visit Provider Nurse Practitioner Family | DX: I10 Essential (primary) hypertension (principal); R60.0 Localized edema; R25.1 Tremor, unspecified; R26.81 Unsteadiness on feet; I50.9 Heart failure, unspecified; Z23 Encounter for immunization | CPT/HCPCS: 81003; 90471; 90677; 99212 ==

== ENCOUNTER 2025-02-19 10:44 | Outpatient (AMB) | payer MEDICARE, MEDICAID, SELFPAY ==
--- NOTE | 2025-02-19 10:46 | MHC.OFFVIS ---
Vital Signs 02/19/25 10:49 Height 5 ft 1 in Weight 208 lb 8.917 oz BMI 39.4 BP 122/64 Blood Pressure Location Lt brachial Position Sitting Pulse 60 Pulse Source Monitor Intake Visit Reasons: 2mnth/echo Intake Note: 2 mth f/up Service Attendant Required: No Accompanied by: Daughter Allergies Sulfa (Sulfonamide Antibiotics) (SULFA (SULFONAMIDE ANTIBIOTICS)) Allergy (Severe, Verified 01/20/25 11:24) RASH, Anaphylaxis Medication List - Last Reconciled 02/19/25 by Steven Castañeda MD acetaminophen 325 mg PO QID PRN 7 days albuterol sulfate 90 mcg/actuation (Ventolin HFA) 2 puffs inhalation Q6H PRN amiodarone 100 mg (1/2 x 200 mg) PO DAILY apixaban (Eliquis) 5 mg PO BID carbidopa-levodopa 25-100 mg ER 1 tab PO BID 30 days cholecalciferol (vitamin D3) 50 mcg PO DAILY cranberry 1,000 mg PO DAILY [disposable bed pads As directed, uses 6 per day] [disposable gloves As directed, uses 8 per day to provide incontinence care] [disposable incontinence wipes As directed, uses 10 per day to provide incontinence care] [disposable pull up briefs As directed, uses 8 per day] urxptukrxmp-spmfpntaa-oqzymtif 100-62.5-25 mcg (Trelegy Ellipta) 1 ea inhalation DAILY furosemide 20 mg PO Q OTHER DAY hydroxyzine HCl 10 mg PO DAILY PRN lamotrigine 50 mg PO BEDTIME metoprolol succinate ER 50 mg (2 x 25 mg) PO DAILY nitrofurantoin macrocrystal 50 mg PO DAILY olanzapine 7.5 mg PO BEDTIME prednisone 10 mg PO DAILY simvastatin 20 mg PO BEDTIME walker Standard walker, no wheels [washable bed pads As directed] HPI Comments Details: Nikki comes for follow-up, accompanied by her daughter. And having increasing shortness of breath and as per the daughter weight gain as well as leg edema. She is taking Lasix only 20 mg every other day. She has recently prescribed increase prednisone dose because of pulmonary issues and cough. She continues to have cough. Recent echocardiogram confirms severe mitral stenosis secondary to calcific mitral valve disease along with moderate mitral regurgitation in his severe pulmonary hypertension. As per the daughter she also was having some memory issues. No prolonged palpitation irregular heartbeat. No bleeding issues or neurologic events. Kidney function showed elevated creatinine in the 2 range. That has a reason in his daughter did not increase her Lasix because of the concern and renal function. [facility] Medical History Paroxysmal atrial fibrillation Emphysema of lung Tardive dyskinesia Coarse tremors Hypersomnia Snoring SHARON (acute kidney injury) Mediastinal lymphadenopathy Atrial fibrillation Dyslipidemia Kidney disease Leukocytosis Necrotizing granulomatous inflammation of lung Bipolar 1 disorder Vitamin D deficiency COPD (chronic obstructive pulmonary disease) Sarcoidosis HTN (hypertension) [place] nephropathy Surgical History History of cardioversion History of bronchoscopy Family History Child No Financial Resp No problems noted. 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 Current occupational exposures/hazards: No Cognitive needs: No Hearing needs: No Vision needs: Yes Review of Systems Const Denies chills, Denies fatigue, Denies fever(s), Denies frequent falls, Denies weakness, Reports weight gain and Denies weight loss ENT Denies dizziness Card Denies chest pain, Reports leg edema, Denies lightheadedness, Denies palpitations, Reports dyspnea and Reports dyspnea on exertion Resp Denies cough, Reports dyspnea and Reports dyspnea on exertion GI Denies hematochezia Musc Denies abnormal gait, Denies muscle weakness, Denies numbness, Denies radiating pain into limb and Denies tingling Neuro Denies abnormal gait, Denies dizziness, Denies frequent falls, Denies numbness, Denies tingling and Denies weakness Endo Denies fatigue and Denies palpitations Physical Exam Vital Signs: Last Vital Signs Pulse 60 02/19/25 10:49 BP 122/64 02/19/25 10:49 BMI result Body Mass Index 39.4 Const General: cooperative, comfortable and no acute distress Neck Neck: Yes normal visual inspection and Yes JVD Resp Effort & Inspection: normal respiratory effort Auscultation: no crackles, no rales, no rhonchi, no wheezes, diminished lung sounds and bronchovesicular breath sounds Cardio Rate: regular rate Rhythm: regular rhythm Heart sounds: S1 normal heart sound present, S2 normal heart sound present, no gallops, no murmurs and no rubs GI Inspection: Yes normal to inspection Extrem General: Yes normal to inspection and No no pedal edema Psych Appearance: grossly normal Mental Status: mental status grossly normal Office Procedures EKG Details: EKGs shows normal sinus rhythm with normal EKGs 51769-[id number], Complete Assessment & Plan Assessment & Plan (1) Congestive heart failure: Code(s): I50.9 - Heart failure, unspecified Category: Medical Plan: Heart failure most likely related to valvular heart disease. This is difficult to assess in his because of the body habitus as well as underlying COPD. She does clinically appear to be fluid overloaded. She has been withholding her increase diuretic therapy due to kidney functions. Overall management is difficult in his case given her multiple comorbidities including poor functional status, advanced COPD, kidney disease as well as possible cognitive issues. Further treatment for the mitral valve will depend on how she responds to medical therapy. Difficulty in management was discussed with her and her daughter. Advise BNP and BMP today. Advised to increase Lasix to daily dose. If that has sudden worsening in his symptoms of significant weight gain, would suggest to come to the emergency room for IV diuresis. Part of the renal dysfunction could be related to cardiorenal syndrome. Overall prognosis is guarded. (2) Calcification of mitral valve: Code(s): I34.81 - Nonrheumatic mitral (valve) annulus calcification Category: Medical Plan: Significant calcific mitral valve disease with what appears to be severe mitral stenosis and moderate mitral regurgitation. This is a difficult clinical situation. She is not a candidate for surgical valve replacement although MIBI a candidate for transcatheter mitral valve replacement if the findings are confirmed by hemodynamics. This was discussed with her. Once heart failure syndrome is better control will refer her for cardiac catheterization to evaluate hemodynamics of the valve as well as filling pressures as well as coronary anatomy. Further treatment will then based on the findings and will require decision through the heart valve team. (3) Paroxysmal atrial fibrillation: Code(s): I48.0 - Paroxysmal atrial fibrillation Category: Medical Plan: Paroxysmal atrial fibrillation which is suppressed on amiodarone therapy. She has well with rhythm control approach will continue pursue rhythm control approach. Continue amiodarone therapy. Continue full oral anticoagulation, currently on Eliquis 5 mg b.i.d.. Will follow up in the clinic in 1 month's time, sooner PRN. Greater than 30 minutes was spent in managing her complex care Orders: Orders NT Pro B Type Natriuretic Pept Today I50.9 - Heart failure, unspecified Basic Metabolic Panel Today I50.9 - Heart failure, unspecified Medications: Changed From furosemide 20 mg PO Q OTHER DAY 45 tabs 1RF To furosemide 20 mg PO DAILY 100 tabs 1RF Coding Level of Care Code Est Pt Level 5 (15840) Diagnoses Congestive heart failure I50.9 Calcification of mitral valve I34.81 Paroxysmal atrial fibrillation I48.0 CPT Codes EKG - CPT: 48295-[id number], Complete ([id number])
[2025-02-19 10:49] VITALS: BP 122/64; PULSE 60; BMI 39.4
--- OUTSIDE RECORDS SUMMARY | 2025-02-19 12:08 | XMS_ITS | Encounter Summary ---
Author Organization [facility] Address [address] [place] [address] Phone Care Team Providers Care Real Estate Processor Name Role Phone Juan Jose Ellington FIREBRICK LAYER Primary Care Provider [phone] Encounter Details Date Type Department Care Team (Late st Contact Info) Description 03/19/2024 Documentation Only [facility] [place], [address] [place] [address] Tatyana Ritchie [address] [place] [address] Social History Tobacco Use Types [...] on filedocumented in this encounter Care Teams Real Estate Processor Relationship Specialty Start Date End Date Juan Jose Ellington NP [facility] [place] [address] PCP - General 12/25/18 documented as of this encounter
--- OUTSIDE RECORDS SUMMARY | 2025-02-19 12:08 | XMS_ITS | Encounter Summary ---
Author Organization [facility] Address [address] [place] [address] Phone Care Team Providers Care Manager Flight Name Role Phone Juan Jose Ellington ANIMAL CARE WORKER Primary Care Provider [phone] Encounter Details Date Type Department Care Team (Late st Contact Info) Description 03/19/2024 Documentation Only [facility] [place], [address] [place] [address] Tatyana Ritchie [address] [place] [address] Social History Tobacco Use Types [...] filedocumented in this encounter Care Teams Manager Flight Relationship Specialty Start Date End Date Juan Jose Ellington NP [facility] [place] [address] PCP - General 12/25/18 documented as of this encounter
--- OUTSIDE RECORDS SUMMARY | 2025-02-19 12:08 | XMS_ITS | Encounter Summary ---
Author Organization [facility] Address [address] [place] [address] Phone Care Team Providers Care Assistance Representative Name Role Phone Juan Jose Ellington FINANCIAL SALES ASSISTANT Primary Care Provider [phone] Encounter Details Date Type Department Care Team (Late st Contact Info) Description 09/18/2024 Documentation Only [facility] [place], [address] [place] [address] Tatyana Ritchie [address] [place] [address] Social History Tobacco Use Types [...] on filedocumented in this encounter Care Teams Assistance Representative Relationship Specialty Start Date End Date Juan Jose Ellington NP [facility] [place] [address] PCP - General 12/25/18 documented as of this encounter
--- OUTSIDE RECORDS SUMMARY | 2025-02-19 12:08 | XMS_ITS | Clinical Summary ---
Author Organization [facility] Address [address] [place] [address] Phone Care Team Providers Care Roller Mill Operator Name Role Phone Juan Jose Ellington NP Primary Care Provider [phone] Allergies Active Allergy Reactions Criticality Noted Date [...] HFA 90 mcg/actuation inhalerIndicat ions:Emphysema , unspecified (CMS/HCC V24, CMS/HCC V28) INHALE 2 [...] tions:Chronic obstructive pulmonary disease, unspecified COPD type (CMS/HCC V24, CMS/HCC V28) Take 3 mL (2.5 mg total) by nebulization every 6 (six) hours if needed for wheezing. 300 mL 2 05/04/19 25 026 Active predniSONE (DELTASONE) 20 mg tablet 2 tab po qd x 1 and then 1 tab po qd x 6 days 8 each 08/30/19 25 Active amiodarone (PACERONE) 100 mg tablet [...] FOR 4 DAYS DIRECTED 12/06/19 25 Active carbidopa-levo dopa CR (SINEMET CR) 25-100 mg per CR [...] tablet (250 mg total) by mouth. Active dextromethorph an-guaiFENesin (ROBITUSSIN-DM ) 10-100 mg/5 mL syrup TAKE 5 ML [...] day. for 7 days 07/23/19 25 Active predniSONE (DELTASONE) 10 mg tabletIndicati ons:Chronic obstructive pulmonary disease, unspecified COPD type (CMS/HCC V24, CMS/HCC V28) TAKE 1 TABLET BY MOUTH 1 TIME EACH DAY. 30 tablet 1 02/06/20 25 Active predniSONE (DELTASONE) 10 mg tabletIndicati ons:Chronic obstructive pulmonary disease, unspecified COPD type (CMS/HCC V24, CMS/HCC V28) TAKE 1 TABLET BY MOUTH 1 TIME EACH DAY. 30 tablet 1 11/21/19 25 025 Discontinued doxycycline (ADOXA) 100 mg tablet Take 1 tablet (100 mg total) by mouth 2 (two) times a day for 7 days. Take with a full glass of water and do not lie down for at least 30 minutes after 14 each 01/31/20 25 025 predniSONE (DELTASONE) 20 mg tablet Take 2 tablets (40 mg total) by mouth 1 (one) time each day for 5 days. 10 each 02/10/20 25 025 Active Problems Problem Noted Date Diagnosed Date Bipolar disorder 10/11/2018 COPD (chronic obstructive pulmonary disease) Hyperlipidemia 10/11/2018 Hypertension 10/11/2018 Pulmonary nodule 10/11/2018 Overview (04/12/2024): RUL-05/30/18 S/p VATS & wedge resection-no malignancy Sarcoidosis of lung 10/11/2018 Encounters Date Type Department Care Team Description 12/11/2024 9:00 AM EDT Office Visit Pulmonology [facility] [address] [place] [address] Sarah Breaux MD Sarcoidosis of lung ([facility] V24) (Primary Dx); Chronic obstructive pulmonary disease, unspecified COPD type ([facility] V24, [facility] V28); Pulmonary nodule 12/11/2024 Telephone Pulmonology - [place] [address] [place] [address] Dhaval Yang MA from Last 3 Months Immunizations Immunization Administration Dates Next Due Moderna SARS-CoV-2 COVID-19, mRNA, LNP-S, preservative free 05/30/2020,05/02/2020 Surgical History Surgery Date Site/Laterality Comments OTHER SURGICAL HISTORY 04/27/2018 Right PROCEDURE: HI BRNCC INCL FLUOR GDNCE DX W/CELL WASHG SPX; COMMENT: negative malignancy TUBAL LIGATION PROCEDURE: HISTORICAL TUBAL LIGATION OTHER SURGICAL HISTORY 05/30/2018 Right PROCEDURE: HI BRONCHOSCOPY W/CPTR-ASST IMAGE-GUIDED NAVIGATION; COMMENT: da Arthur/VATS RUL wedge resection w/extensive pneumolysis OTHER SURGICAL HISTORY PROCEDURE: HI CARDIOVERSION ELECTIVE ARRHYTHMIA EXTERNAL Medical History Medical History Date Comments COPD (chronic obstructive pu lmonary disease) ([facility] V24, [facility] V28) 10/11/2018 DX:COPD (chronic o bstructive pulmonary disease) (HCC) Sarcoidosis of lung ([facility]/HCC V24) 10/11/2018 DX:Sarcoidosis of lung (HCC) Pulmonary nodule 10/11/2018 DX:Pulmonary no dule; COMMENT: RUL-05/30/18 S/p VATS & wedge resection-no malignancy Bipolar disorder ([facility] V2 4, [facility] V28) 10/11/2018 DX:Bipolar disorder (HCC) Hypertension 10/11/2018 DX:Hypertension Hyperlipidemia 10/11/2018 DX:Hyperlipidemi a SHARON (acute kidney injury) ([place] V24) DX:SHARON (acute kidney injury) (HCC) Atrial fibrillation ([facility]/HCC V24, CMS/HCC V28) DX:Atrial fibrillation (HCC) Renal disease DX:Renal disease Leukocytosis DX:Leukocytosis [place] nephropathy DX:[place] n ephropathy Mediastinal lymphadenopathy DX:M ediastinal lymphadenopathy [...] Description 03/13/2025 11:00 AM EST Appointment [facility] CT Scan [address] [place] [id number] 04/14/2025 1:15 PM EST Ancillary Procedure Pulmonology - [place] [address] [place] [id number] 04/14/2025 2:15 PM EST Office Visit Pulmonology - [address] [place] [address] Sarah Breaux MD [facility] [place] [address] Health Maintenance Due Date Last Done Comments [...] AM EDT Narrative 06/13/2023 3:45 PM EDT [facility] Diagnostic Imaging Department [address] [place] [address] Patient: NIKKI HURTADO Jory /Age/Sex: 1945 - 77 - F Unit#: [id number] Location/Status: [facility] Mnemonic/Ordering Site: [facility] Ordering Physician: MULUGETA SU MD CT [...] Procedure Note Edgard Torres MD - 10/09/2023 [facility] Diagnostic Imaging Department [address] [place] [address] Patient: CHARLESDARIANANIKKI /Age/Sex: 1945 - 77 - F Unit#: [id number] [facility] Mnemonic/Ordering Site: [facility] Ordering Physician: MULUGETA SU MD CT [...] Sign date/Time: 06/13/23 1545 Mulugeta Su MD [facility] PROCEDURES Final Result from Last 3 Months or Most Recently Relevant to Health Maintenance Insurance MEDICARE [place]ICAID [place] Care Teams Roller Mill Operator Relationship Specialty Start Date End Date Juan Jose Ellington NP [address] [place], [place] PCP - General 06/26/18
--- OUTSIDE RECORDS SUMMARY | 2025-02-19 12:08 | XMS_ITS | Encounter Summary ---
Author Organization [facility] Address [address] [place] [address] Phone Care Team Providers Care Payroll Secretary Name Role Phone Juan Jose Ellington GRAIN TRIMMER Primary Care Provider [phone] Encounter Details Date Type Department Care Team (Late st Contact Info) Description 10/25/2023 Documentation Only [facility] [place], [address] [place] [address] Tatyana Ritchie [address] [place] [address] Social History Tobacco Use Types [...] on filedocumented in this encounter Care Teams Payroll Secretary Relationship Specialty Start Date End Date Juan Jose Ellington NP [facility] [place] [address] PCP - General 12/25/18 documented as of this encounter
--- OUTSIDE RECORDS SUMMARY | 2025-02-19 12:08 | XMS_ITS | Encounter Summary ---
Author Organization [facility] Address [address] [place] [address] Phone Care Team Providers Care Glove Parts Cutter Name Role Phone Juan Jose Ellington SOLAR PHOTOVOLTAIC CREW LEAD Primary Care Provider [phone] Encounter Details Date Type Department Care Team (Late st Contact Info) Description 10/25/2023 Documentation Only [facility] [place], [address] [place] [place] [address] Tatyana Ritchie [address] [place] [address] Social History Tobacco Use Types [...] on filedocumented in this encounter Care Teams Glove Parts Cutter Relationship Specialty Start Date End Date Juan Jose Ellington NP [facility] [place] [address] PCP - General 12/25/18 documented as of this encounter
--- OUTSIDE RECORDS SUMMARY | 2025-02-19 12:08 | XMS_ITS | Encounter Summary ---
Author Organization [facility] Address [address] [place] [address] Phone Care Team Providers Care Glued Wood Tester Name Role Phone Juan Jose Ellington FISH BAIT PROCESSING SUPERVISOR Primary Care Provider [phone] Encounter Details Date Type Department Care Team (Late st Contact Info) Description 03/26/2024 Documentation Only [facility] [place], [address] [place] [address] Tatyana Ritchie [address] [place] [address] Social History Tobacco Use Types [...] on filedocumented in this encounter Care Teams Glued Wood Tester Relationship Specialty Start Date End Date Juan Jose Ellington NP [facility] [place] [address] PCP - General 12/25/18 documented as of this encounter
--- OUTSIDE RECORDS SUMMARY | 2025-02-19 12:08 | XMS_ITS | Encounter Summary ---
Author Organization [facility] Address [address] [place] [address] Phone Care Team Providers Care Boiler Operators Supervisor Name Role Phone Juan Jose Ellington GENERAL MANAGER Primary Care Provider [phone] Encounter Details Date Type Department Care Team (Late st Contact Info) Description 10/25/2023 Documentation Only [facility] [place], [address] [place] [address] Tatyana Ritchie [address] [place] [address] Social History Tobacco Use Types [...] on filedocumented in this encounter Care Teams Boiler Operators Supervisor Relationship Specialty Start Date End Date Juan Jose Ellington NP [facility] [place] [address] PCP - General 12/25/18 documented as of this encounter
--- OUTSIDE RECORDS SUMMARY | 2025-02-19 12:08 | XMS_ITS | Encounter Summary ---
Author Organization [facility] Address [address] [place] [address] Phone Care Team Providers Care Food Order Delivery Runner Name Role Phone Juan Jose Ellington SENIOR ACCOUNT MANAGER Primary Care Provider [phone] Encounter Details Date Type Department Care Team (Late st Contact Info) Description 10/12/2023 Documentation Only [facility] [place], [address] [place] [address] Tatyana Ritchie [address] [place] [address] Social History Tobacco Use Types [...] on filedocumented in this encounter Care Teams Food Order Delivery Runner Relationship Specialty Start Date End Date Juan Jose Ellington NP [facility] [place] [address] PCP - General 12/25/18 documented as of this encounter
--- OUTSIDE RECORDS SUMMARY | 2025-02-19 12:08 | XMS_ITS | Clinical Summary ---
Author Organization [facility] [place], Address [address] [place] [address] [place] [address] Phone Care Team Providers Care Behavior Therapist Name Role Phone Juan Jose Ellington NP Primary Care Provider [phone] Allergies No known active allergies Medications albuterol [...] [place] Medicaid [place] Care Teams Behavior Therapist Relationship Specialty Start Date End Date Juan Jose Ellington NP [address] [facility] [place] [address] PCP - General 12/25/18
== END 2025-02-19 11:07 | disposition home or self-care (01) ==
LOC: HO.HCS 10:45
PROVIDERS: PCP Nurse Practitioner Family; Visit Provider Internal Medicine Cardiovascular Disease
DX: I50.9 Heart failure, unspecified (principal); I34.81 Nonrheumatic mitral (valve) annulus calcification; I48.0 Paroxysmal atrial fibrillation
CPT/HCPCS: 93010; 99215

== ENCOUNTER 2025-02-19 10:44 | Outpatient (REF) | payer MEDICARE, MEDICAID, SELFPAY ==
[2025-02-19 12:42] LABS: Anion Gap 13 (12-20); Blood Urea Nitrogen 30 mg/dL (9-16); Calcium 9.5 mg/dL (8.4-10.2); Carbon Dioxide 32 mmol/L (22-29); Chloride 103 mmol/L (96-108); Estimated Glomerular Filt Rate 25; Potassium 3.8 mmol/L (3.3-5.1); Sodium 144 mmol/L (135-145)
[2025-02-19 12:49] LABS: NT Pro B Type Natriuretic Pept 1758.4 pg/mL (<300)
== END 2025-02-19 10:45 | disposition home or self-care (01) ==
LOC: HO.LAB 10:44
PROVIDERS: PCP Nurse Practitioner Family; Visit Provider Internal Medicine Cardiovascular Disease
DX: I11.0 Hypertensive heart disease with heart failure (principal); I50.9 Heart failure, unspecified; I34.81 Nonrheumatic mitral (valve) annulus calcification; I48.0 Paroxysmal atrial fibrillation; I27.22 Pulmonary hypertension due to left heart disease; I34.2 Nonrheumatic mitral (valve) stenosis; J44.9 Chronic obstructive pulmonary disease, unspecified; Z79.01 Long term (current) use of anticoagulants; Z79.899 Other long term (current) drug therapy; Z87.891 Personal history of nicotine dependence
CPT/HCPCS: 36415; 80048; 83880